=== PATIENT | female | born 1965 | race Caucasian/White ===

== ENCOUNTER 2017-07-25 13:04 | Inpatient (IN) ==
[2017-07-25] MEDS ORDERED: 0.9 % Sodium Chloride 1,000 ML IVC ONE (13:21)
[2017-07-25] MEDS ORDERED: *HR* HYDROmorphone (PF) 1 MG/ML SYRINGE IVP ONE (13:26)
[2017-07-25 13:33] LABS: Bilirubin,Urine Negative (Negative); Blood,Urine Negative (Negative); Clarity,Urine Cloudy (Clear); Color,Urine Yellow (Yellow); Glucose,Urine (UA) Normal (Normal); Ketones,Urine Negative (Negative); Leukocyte Esterase,Urine Large (Negative); Nitrite,Urine Negative (Negative); Protein,Urine Negative (Neg-Trace); Specific Gravity,Urine 1.012 (1.010-1.025); Urobilinogen,Urine Normal (Normal)
[2017-07-25 13:37] LABS: Bacteria,Urine Few per hpf (None-Few); Hyaline Casts,Urine None Seen per lpf (None-Few); RBC,Urine 0-3 per hpf (0-3); Squamous Epithelial Cell,Urine Many per lpf (None-Few); WBC,Urine 30-50 per hpf (0-3)
[2017-07-25 13:43] LABS: Basophils # 0.1 K/mcL (0.0-0.2); Basophils % 1.2 %; Eosinophils # 0.2 K/mcL (0.0-0.6); Eosinophils % 2.7 %; Immature Granulocytes % 0.2 % (0-4); Lymphocytes # 2.1 K/mcL (0.6-4.6); Mean Corpuscular HGB Conc 33.3 g/dL (31.6-35.5); Mean Corpuscular Hemoglobin 28.8 pg (28.0-33.3); Mean Corpuscular Volume 86.3 fL (83.0-100.0); Mean Platelet Volume 8.8 fL (9.4-12.4); Monocytes # 0.4 K/mcL (0.0-1.3); Monocytes % 6.3 %; Neutrophils # 3.2 K/mcL (1.6-8.9); Platelet Count 323 K/mcL (140-400); Red Blood Count 4.17 M/mcL (3.82-4.97); Red Cell Distribution Width 13.2 % (11.5-14.5); Segmented Neutrophils % 53.6 %
--- NOTE | 2017-07-25 13:50 | Emergency Department Note ---
Disposition Clinical Impression: Pancreatitis Qualifiers: Chronicity: acute Pancreatitis type: unspecified pancreatitis type Acute pancreatitis complication: unspecified Qualified Code(s): K85.90 - Acute pancreatitis without necrosis or infection, unspecified Disposition: Admitted As Inpatient Condition: Good Time of Disposition: 14:10 General Adult HPI - General Chief complaint: ED Abdominal Pain Stated complaint: Pancreatitis Time Seen by Provider: 07/25/17 13:17 Source: patient Mode of arrival: ambulatory Limitations: no limitations Nursing Notes Reviewed: Yes Vital Signs Reviewed: Yes - History of Present Illness HPI Narrative: 51-year-old female presented to the emergency department with chief complaint of epigastric pain. Patient has significant past medical history of pancreatitis due to gastric bypass surgery consultation. She has had epigastric pain that radiates under her right upper quadrant. She states she has had nausea and vomiting but no chest pain or shortness of breath. She states this episode feels exactly like her previous issues with her pancreas. Patient states she has had a cholecystectomy previously in the early . Patient denies fever at home. Patient denies urinary complaints. Patient states she tried taking oral narcotics at home but was unable to keep them down due to the nausea and vomiting. Pain Scale: 6 - Related Data Home Medications Medication Instructions Recorded Confirmed Tizanidine HCl [Zanaflex] 4 mg PO BID 01/15/16 07/25/17 BuPROPion [Wellbutrin] 300 mg PO DAILY 09/02/16 07/25/17 Niacin [Niaspan] 1,000 mg PO DAILY 09/02/16 07/25/17 Nitroglycerin [Nitrostat] 0.4 mg SL PRN PRN 09/02/16 07/25/17 Ondansetron [Zofran ODT] 8 mg SL Q4HR 07/09/17 07/25/17 Loratadine [Allergy Relief] 10 mg PO DAILY 07/25/17 07/25/17 Montelukast [Singulair] 10 mg PO HS 07/25/17 07/25/17 Pantoprazole Sodium 40 mg PO DAILY 07/25/17 07/25/17 Simvastatin [Zocor] 40 mg PO HS 07/25/17 07/25/17 Temazepam [Restoril] 30 mg PO HS 07/25/17 07/25/17 Venlafaxine XR (24 HR) [Effexor XR] 37.5 mg PO DAILY 07/25/17 07/25/17 Verapamil [Isoptin] 120 mg PO DAILY 07/25/17 07/25/17 rOPINIRole [Requip] 1 mg PO HS 07/25/17 07/25/17 Allergies Allergy/AdvReac Type Severity Reaction Status Date / Time acetaminophen [From Fioricet] Allergy Hives Verified 07/25/17 13:21 butalbital [From Fioricet] Allergy Hives Verified 07/25/17 13:21 caffeine [From Fioricet] Allergy Hives Verified 07/25/17 13:21 [place] Allergy Hives Verified 07/25/17 13:21 phenytoin [From Dilantin] Allergy Hives Verified 07/25/17 13:21 methocarbamol [From Robaxin] AdvReac Vomiting Verified 07/25/17 13:22 All systems ED: reviewed and negative except as stated. Constitutional: Denies: fever, chills Eyes: Reports: as per HPI ENT ED: Reports: as per HPI Cardiovascular: Denies: chest pain, palpitations Respiratory: Denies: cough, dyspnea, wheezes Gastrointestinal: Reports: abdominal pain, nausea, vomiting Genitourinary: Denies: urgency, dysuria, frequency Musculoskeletal: Reports: as per HPI Integumentary: Reports: as per HPI Neurological: Denies: headache, weakness, numbness, paresthesias Psychiatric: Reports: as per HPI Endocrine: Reports: as per HPI Hematological/Lymphatic: Reports: as per HPI Allergic/Immunologic: Reports: as per HPI Past Medical History - Past Medical History Attestation: Yes The following information was validated with the patient. Medical history: Reports: asthma, COPD, coronary artery disease, GERD, hyperlipidemia, myocardial infarction, renal disease, seizures, TIA, other Surgical history: Reports: , cholecystectomy, hysterectomy Psychiatric history: Reports: anxiety, depression - Social History Smoking Status: Former smoker Smokeless Tobacco Status: No Alcohol use: Reports: none, recent Drug use: Reports: none Physical Exam - General Limitations: no limitations General appearance: alert, in no apparent distress - Head Head exam: atraumatic, normocephalic, normal inspection - Eye Eye exam: Present: normal appearance. Absent: scleral icterus, conjunctival injection - ENT ENT exam: normal exam, mucous membranes moist - Chest Chest inspection: Present: normal inspection, symmetric chest wall rise. Absent : tenderness, rash - Respiratory Respiratory exam: Present: normal lung sounds bilaterally. Absent: respiratory distress, wheezes - Cardiovascular Cardiovascular exam: Present: regular rate, normal rhythm, normal heart sounds - Abdominal Exam Abdominal exam: Present: soft, tenderness, guarding, normal bowel sounds. Absent: distention, rebound, rigidity, organomegaly, Carrera's sign, Rovsing's sign, tenderness at McBurney's Point Abdominal tenderness: Present: epigastrium, moderate - Extremities Exam Extremities exam: Present: normal inspection, full ROM - Neurological Exam Neurological exam: Present: alert, oriented X3 - Psychiatric Psychiatric exam: Present: normal affect, normal mood - Skin Skin exam: Present: warm, intact Course Course Narrative: 51-year-old female presenting with epigastric pain. Patient has a history of chronic pancreatitis. We will help control her pain here and resuscitate her with normal saline 1 L bolus. We also obtained basic lab work including CBC, CMP, lipase. Disposition pending results at this time. Patient's lower and oriented 3 and with stable vital signs this time. - Reevaluation(s) Reevaluation #1: Patient's lipase is elevated at 320. I spoke with the hospitalist on-call Dr. Hanley. He agrees to accept the patient at this time. Patient's alert and oriented 3 in the room and agrees with this plan. Vital signs are stable at this time. Patient states her pain is under control this time. Time: 14:10 Vital Signs Temperature 98.0 F 07/25/17 13:06 Pulse Rate 84 07/25/17 13:06 Respiratory Rate 18 07/25/17 13:06 Blood Pressure 120/86 07/25/17 13:06 O2 Sat by Pulse Oximetry 96 07/25/17 13:06 Temperature 98.4 F 07/25/17 23:29 Pulse Rate 68 07/25/17 23:29 Respiratory Rate 16 07/25/17 23:29 Blood Pressure 100/64 07/25/17 23:29 O2 Sat by Pulse Oximetry 96 07/25/17 23:29 Oxygen Delivery Oxygen Delivery Room Air Medical Decision Making - Lab Data Result diagrams: 07/25/17 13:36 07/25/17 13:36 Lab Results 07/25/17 07/25/17 07/25/17 Range/Units 13:15 13:36 13:36 WBC 5.9 (4.3-11.1) K/mcL RBC 4.17 (3.82-4.97) M/mcL Hgb 12.0 (11.5-15.4) g/dL Hct 36.0 (35.3-44.9) % MCV 86.3 (83.0-100.0) fL MCH 28.8 (28.0-33.3) pg MCHC 33.3 (31.6-35.5) g/dL RDW 13.2 (11.5-14.5) % Plt Count 323 (140-400) K/mcL MPV 8.8 L (9.4-12.4) fL Immature Gran % 0.2 (0-4) % Seg Neutrophils % 53.6 % Lymphocytes % 36.0 % Monocytes % 6.3 % Eosinophils % 2.7 % Basophils % 1.2 % Neutrophils # 3.2 (1.6-8.9) K/mcL Lymphocytes # 2.1 (0.6-4.6) K/mcL Monocytes # 0.4 (0.0-1.3) K/mcL Eosinophils # 0.2 (0.0-0.6) K/mcL Basophils # 0.1 (0.0-0.2) K/mcL Sodium 140 (136-145) mEq/L Potassium 3.8 (3.5-4.5) mEq/L Chloride 101 (98-109) mEq/L Carbon Dioxide 28 (19-29) mEq/L BUN 10 (7-20) mg/dL Creatinine 0.97 (0.57-1.11) mg/dL Est GFR ( Amer) > 60 (> 60) Est GFR (Non-Af Amer) > 60 (> 60) BUN/Creatinine Ratio 10 (6-26) Glucose 88 (70-99) mg/dL Calculated Osmolality 288 (280-300) Calcium 9.3 (8.6-10.8) mg/dL Total Bilirubin 0.4 (0.2-1.2) mg/dL AST 33 (5-34) Units/L ALT 42 (0-55) Units/L Alkaline Phosphatase 102 (38-126) Units/L Serum Total Protein 7.7 (6.0-8.3) g/dL Albumin 4.0 (3.5-5.0) g/dL Globulin 3.7 H (2.4-3.5) g/dL Albumin/Globulin Ratio 1.1 (1.1-2.2) Lipase 320 H (8-78) Units/L Urine Color Yellow (Yellow) Urine Clarity Cloudy A (Clear) Urine pH 6.0 (5.0-8.0) pH Units Ur Specific [place] 1.012 (1.010-1.025) Urine Protein Negative (Neg-Trace) mg/dL Urine Glucose (UA) Normal (Normal) mg/dL Urine Ketones Negative (Negative) mg/dL Urine Blood Negative (Negative) Urine Nitrite Negative (Negative) Urine Bilirubin Negative (Negative) Urine Urobilinogen Normal (Normal) mg/dL Ur Leukocyte Esterase Large H (Negative) Urine Microscopic RBC 0-3 (0-3) per hpf Urine Microscopic WBC 30-50 H (0-3) per hpf Ur Squamous Epith Cells Many H (None-Few) per lpf Urine Bacteria Few (None-Few) per hpf Hyaline Casts None Seen (None-Few) per lpf Ur Culture Indicated? YES A (NO) Attestation Statement - Attestation Attestation: I, Jean-Pierre Whitlock, examined this patient and my medical decision-making was reviewed with the [employer]/PA/Advanced Practice Nurse/Resident Physician. I agree with the documented findings, disposition and treatment plan as described except to the extent set forth below. 51-year-old female presents emergency Department with concerns of epigastric abdominal pain similar to her previous pancreatitis. Patient states she has a history of chronic pancreatitis secondary to gastric bypass surgery. Patient states she has been unable to eat or drink without becoming nauseated or having significant pain. Patient has an elevated lipase on laboratory evaluation today. Patient given IV pain medications and IV fluids emergency department is comfortable with the plan for admission of the hospital.
[2017-07-25 13:57] LABS: Alanine Aminotransferase 42 Units/L (0-55); Albumin/Globulin Ratio 1.1 (1.1-2.2); Alkaline Phosphatase 102 Units/L (38-126); Aspartate Amino Transferase 33 Units/L (5-34); BUN/Creatinine Ratio 10 (6-26); Bilirubin,Total 0.4 mg/dL (0.2-1.2); Blood Urea Nitrogen 10 mg/dL (7-20); Calcium 9.3 mg/dL (8.6-10.8); Carbon Dioxide 28 mEq/L (19-29); Chloride 101 mEq/L (98-109); Globulin 3.7 g/dL (2.4-3.5); Glucose 88 mg/dL (70-99); Lipase 320 Units/L (8-78); Osmolality,Calculated 288 (280-300); Potassium 3.8 mEq/L (3.5-4.5); Sodium 140 mEq/L (136-145); Total Protein 7.7 g/dL (6.0-8.3); eGFR For African Americans > 60 (> 60); eGFR For Non-African Americans > 60 (> 60)
--- NOTE | 2017-07-25 15:15 | Event Note ---
Date of Encounter: 07/25/17 Time of Encounter: 15:14 Patient seen and examined with nurse practitioner. Acute pancreatitis. Keep NPO hydrate pain control. She has prior cholecystectomy, no concern for choledocholithiasis. she does not drink alcohol.
[2017-07-25] MEDS ORDERED: Acetaminophen 325 MG TABLET PO PRN (16:16)
[2017-07-25] MEDS ORDERED: Naloxone 0.4 MG/ML INJ IVP PRN (16:16)
[2017-07-25] MEDS: Ondansetron 4 MG/2 ML VIAL IVP PRN (17:29)
[2017-07-25] MEDS: *HR* HYDROmorphone (PF) 1 MG/ML SYRINGE IVP PRN ×2 (17:29→22:08)
[2017-07-25] MEDS: 0.9 % Sodium Chloride 1,000 ML IVC SCH (17:30)
[2017-07-25] MEDS: Pantoprazole 40 MG VIAL IVP SCH (17:30)
--- NOTE | 2017-07-25 17:49 | Internal Med History&Physical ---
Date of Encounter: 07/25/17 Time of Encounter: 15:00 Assessment and Plan (1) Pancreatitis Current visit: Yes Status: Acute Acute pancreatitis that began on Friday with continued and worsening abdominal pain, nausea, and vomiting. Patient reports previous history of same sx 2-3 weeks ago. 0.9 NS @ 100 mL/HR. NPO except for medications. Stair-step pain medications for pain management. Pt. receiving IVPB abx for current UTI. Monitor pt. closely for signs of increasing abdominal pain/swelling/N/V. Patient at high risk for further morbidity due to recurrent pancreatitis and infection from UTI. Inpatient. Qualifiers: Chronicity: acute Pancreatitis type: unspecified pancreatitis type Acute pancreatitis complication: unspecified Qualified Code(s): K85.90 - Acute pancreatitis without necrosis or infection, unspecified (2) UTI (urinary tract infection) Current visit: Yes Status: Acute Pt presents with initial UA indicative for culture. Patient's WBC currently 5.9 and does not meet sepsis criteria at this time. IVPB ceftriaxone 1000 mg daily ordered for infection coverage. Monitor pt. and f/u labs for signs of increasing infection. Monitor I&O and daily weight. Qualifiers: Urinary tract infection type: site unspecified Hematuria presence: without hematuria Qualified Code(s): N39.0 - Urinary tract infection, site not specified (3) COPD (chronic obstructive pulmonary disease) Current visit: Yes Status: Chronic Hx of chronic COPD. Stable. Patient reports being a former smoker quitting 20 years ago. Pt. denies SOB, dyspnea, cough, or home O2 use. Qualifiers: COPD type: emphysema Qualified Code(s): J43.9 - Emphysema, unspecified (4) CAD (coronary artery disease) Current visit: Yes Status: Chronic Hx of chronic CAD. Stable. Continue patient's aspirin therapy and Zocor. Continuous cardiac telemetry. Qualifiers: Coronary Disease-Associated Artery/Lesion type: [place] artery [place] vs. transplanted heart: [place] heart Associated angina: angina presence unspecified Qualified Code(s): I25.10 - Atherosclerotic heart disease of [place] coronary artery without angina pectoris (5) GERD (gastroesophageal reflux disease) Current visit: Yes Status: Chronic Hx of chronic GERD. IVP Zofran every 6 when necessary for nausea. IVP Protonix 40 mg daily. Qualifiers: Esophagitis presence: esophagitis presence not specified Qualified Code(s) : K21.9 - Gastro-esophageal reflux disease without esophagitis (6) HLD (hyperlipidemia) Current visit: Yes Status: Chronic Hx of chronic HLD. Patient's lipid panel drawn 2 weeks ago by PCP. Continue Zocor. Qualifiers: Hyperlipidemia type: pure hypercholesterolemia Qualified Code(s): E78.00 - Pure hypercholesterolemia, unspecified; E78.0 - Pure hypercholesterolemia (7) DVT prophylaxis Current visit: Yes Status: Acute Lovenox 40 mg SQ 0600 daily for DVT prophylaxis. Internal Medicine - H&P: HPI Chief complaint: Abdominal pain Admitted From: Emergency Dept Plans for Post Hospital Care: Home History of present illness: Ms. Astudillo is a 51 year old female with medical history of asthma, COPD, CAD, GERD, HLD, previous myocardial infarction 10 years ago without stent placement, chronic kidney disease, seizures approximately 20 years ago, and TIAs approximately 20 years ago presents from the ED with chief complaint of abdominal pain since Friday with nausea and vomiting. Reports similar sx 2-3 weeks ago. Pt. reports she has had these sx before w/previous pancreatitis. States her pain is epigastric w/radiation to RUQ to back. Pt. denies recent illness, fever, chills, diarrhea, constipation, headache, changes in vision, unusual bleeding, urinary problems, weakness, numbness, tingling, cough, shortness of breath, chest pain, palpitations, dizziness, lightheadedness, pre- syncope, or syncope. Past Med Surg Social Fam HX - Past Medical History Source: patient, old records reviewed Medical history: asthma, COPD, coronary artery disease, GERD, hyperlipidemia, myocardial infarction, renal disease, seizures, TIA, other Psychiatric history: anxiety, depression - Past Surgical History Surgical History: , cholecystectomy, hysterectomy (Total) - Social History Smoking Status: Former smoker Packs per day: 1 PPD - Reports quitting 20 years ago Smokeless Tobacco Status: No Alcohol use: none, recent Drug use: none Current living situation: Home, With Family Activity Level: Independent ambulation Recent Out of Country Travel Within the Last 8 Weeks: No Exposure or Possible Exposure to Illness During Travel: No - Family History Mother Name: Fatemeh Astudillo Race: Family Member Ethnicity: Non- Living Status: Age at : 72 Cause of : Throat Cancer Hx Family Cancer: Yes (Throat) Father Race: Family Member Ethnicity: Non- Living Status: Age at : 70 Cause of : Alzheimer's disease Hx Family Cancer: Yes (Prostate) Hx Family Neurologic Disorders: Yes (Alzheimer's disease) Brother Race: Family Member Ethnicity: Non- Living Status: Still Living Hx Family Psychosocial Disorders: Yes (Bipolar disorder) Sister Race: Family Member Ethnicity: Non- Living Status: Age at : 50 Cause of : NH Hx Family Cardiac Disorders: Yes (NH) Hx Family Cancer: Yes (Breast cancer) Internal Medicine - H&P: Meds Tizanidine HCl [Zanaflex] 4 mg PO BID 01/15/16 [History] BuPROPion [Wellbutrin] 300 mg PO DAILY 09/02/16 [History] Niacin [Niaspan] 1,000 mg PO DAILY 09/02/16 [History] Nitroglycerin [Nitrostat] 0.4 mg SL PRN PRN 09/02/16 [History] Ondansetron [Zofran ODT] 8 mg SL Q4HR 07/09/17 [History] Loratadine [Allergy Relief] 10 mg PO DAILY 07/25/17 [History] Montelukast [Singulair] 10 mg PO HS 07/25/17 [History] Pantoprazole Sodium 40 mg PO DAILY 07/25/17 [History] Simvastatin [Zocor] 40 mg PO HS 07/25/17 [History] Temazepam [Restoril] 30 mg PO HS 07/25/17 [History] Venlafaxine XR (24 HR) [Effexor XR] 37.5 mg PO DAILY 07/25/17 [History] Verapamil [Isoptin] 120 mg PO DAILY 07/25/17 [History] rOPINIRole [Requip] 1 mg PO HS 07/25/17 [History] 3 Allergy/AdvReac Type Severity Reaction Status Date / Time acetaminophen [From Fioricet] Allergy Hives Verified 07/25/17 13:21 butalbital [From Fioricet] Allergy Hives Verified 07/25/17 13:21 caffeine [From Fioricet] Allergy Hives Verified 07/25/17 13:21 [place] Allergy Hives Verified 07/25/17 13:21 phenytoin [From Dilantin] Allergy Hives Verified 07/25/17 13:21 methocarbamol [From Robaxin] AdvReac Vomiting Verified 07/25/17 13:22 All Systems PM: A 10-system review of systems was performed and is negative for pertinent findings except as documented above in the HPI. - Constitutional Constitutional: no chills, no fever(s), no night sweats - EENT Eyes: no change in vision, no discharge, no pain, no photophobia Ears: no ear discharge, no ear pain, no tinnitus Nose, mouth and throat: no dysphagia, no nasal discharge, no neck pain, no sore throat - Breasts Breasts: as per HPI - Cardiovascular Cardiovascular ROS IM: no chest pain, no diaphoresis, no dyspnea, no lightheadedness, no palpitations, no syncope - Respiratory Respiratory: no cough, no dyspnea, no wheezing, no excessive phlegm production - Gastrointestinal Gastrointestinal: as per HPI, abdominal pain, nausea, vomiting - Genitourinary Genitourinary: no change in urinary stream, no dysuria, no flank pain, no hematuria Menstruation: as per HPI - Musculoskeletal Musculoskeletal ROS IM: no numbness, no tingling - Integumentary Integumentary IM: no rash, no unusual bruising - Neurological Neurological ROS: no confusion, no convulsions, no focal weakness, no numbness, no tingling, no tremor(s) - Psychiatric Psychiatric: as per HPI - Endocrine Endocrine IM: as per HPI - Hematologic/Lymphatic Hematologic/Lymphatic: no easy bruising - Allergic/Immunologic Allergic/Immunologic: as per HPI - Constitutional Vitals: Temp Pulse Resp BP Pulse Ox 98.1 F 73 16 114/77 94 07/25/17 15:36 07/25/17 15:36 07/25/17 15:36 07/25/17 15:36 07/25/17 15:36 General appearance: Present: cooperative, mild distress, A&O X 3, pleasant, obese, answers questions appropriately - Head Head exam: Present: atraumatic, normocephalic - Eye Eye exam: Present: PERRL, conjuntiva pink, sclera anicteric Pupils: Present: PERRL - ENT ENT exam: Present: normal exam, normal external ear exam - Neck Neck exam general surgery: Present: normal inspection, supple, trachea midline. Absent: lymphadenopathy - Respiratory Respiratory exam: Present: CTAB. Absent: accessory muscle use, rales, rhonchi, wheezes - Cardiovascular Cardiovascular exam: Present: RRR, +S1, +S2. Absent: diastolic murmur, gallop, rubs, systolic murmur - GI/Abdominal GI/Abdominal exam: Present: normal bowel sounds, soft, no peritoneal signs. Absent: distended, tenderness - Rectal Rectal exam: Present: deferred - Additional comments: exam deferred. - Extremities Exam Extremities exam: Present: warm, radial pulses palpable and symmetrical. Absent : calf tenderness, cyanotic, pedal edema - Back Exam Back exam: Present: normal inspection - Neurological Exam Neurological exam: Present: CN II-XII intact, oriented X3, no focal deficits. Absent: pronater drift, facial droop, speech deficit - Psychiatric Psychiatric exam: Present: normal affect, normal mood - Skin Skin exam: Present: dry, intact Internal Med - H&P Results - Labs CBC & Chem 7: 07/25/17 13:36 07/25/17 13:36
[2017-07-25] MEDS: cefTRIAXone 1,000 MG in Water for inj. (sterile) 10 ML IVP SCH (18:44)
[2017-07-25] MEDS ORDERED: Temazepam 15 MG CAPSULE PO SCH (21:00)
[2017-07-25] MEDS: rOPINIRole 1 MG TABLET PO SCH (22:07)
[2017-07-25] MEDS: tiZANidine 4 MG TABLET PO SCH (22:08)
[2017-07-25] MEDS: *HR* Promethazine 25 MG/ML VIAL IVP PRN (22:24)
[2017-07-26] MEDS: Ondansetron 4 MG/2 ML VIAL IVP PRN ×3 (02:44→22:15)
[2017-07-26] MEDS: *HR* HYDROmorphone (PF) 1 MG/ML SYRINGE IVP PRN ×5 (02:45→22:15)
[2017-07-26] MEDS: 0.9 % Sodium Chloride 1,000 ML IVC SCH ×4 (03:53→23:31)
[2017-07-26 05:30] LABS: Basophils # 0.1 K/mcL (0.0-0.2); Basophils % 1.1 %; Eosinophils # 0.3 K/mcL (0.0-0.6); Eosinophils % 4.6 %; Hematocrit 32.7 % (35.3-44.9); Hemoglobin 10.5 g/dL (11.5-15.4); Immature Granulocytes % 0.2 % (0-4); Lymphocytes # 2.2 K/mcL (0.6-4.6); Lymphocytes % 39.8 %; Mean Corpuscular HGB Conc 32.1 g/dL (31.6-35.5); Mean Corpuscular Hemoglobin 28.6 pg (28.0-33.3); Mean Corpuscular Volume 89.1 fL (83.0-100.0); Mean Platelet Volume 9.4 fL (9.4-12.4); Monocytes # 0.4 K/mcL (0.0-1.3); Monocytes % 6.2 %; Neutrophils # 2.7 K/mcL (1.6-8.9); Nucleated Red Blood Cells 0.4 /100 WBC (0); Platelet Count 275 K/mcL (140-400); Red Blood Count 3.67 M/mcL (3.82-4.97); Red Cell Distribution Width 13.5 % (11.5-14.5); Segmented Neutrophils % 48.1 %
[2017-07-26 05:41] LABS: Alanine Aminotransferase 37 Units/L (0-55); Alkaline Phosphatase 91 Units/L (38-126); Aspartate Amino Transferase 38 Units/L (5-34); BUN/Creatinine Ratio 10 (6-26); Bilirubin,Total 0.3 mg/dL (0.2-1.2); Blood Urea Nitrogen 10 mg/dL (7-20); Calcium 8.5 mg/dL (8.6-10.8); Carbon Dioxide 28 mEq/L (19-29); Chloride 105 mEq/L (98-109); Glucose 88 mg/dL (70-99); Magnesium 2.1 mg/dL (1.6-2.6); Osmolality,Calculated 290 (280-300); Potassium 3.6 mEq/L (3.5-4.5); Sodium 141 mEq/L (136-145); eGFR For African Americans > 60 (> 60); eGFR For Non-African Americans > 60 (> 60)
[2017-07-26 05:42] LABS: Albumin 3.1 g/dL (3.5-5.0); Total Protein 6.1 g/dL (6.0-8.3)
[2017-07-26] MEDS: tiZANidine 4 MG TABLET PO SCH ×2 (07:51→22:16)
[2017-07-26] MEDS: Pantoprazole 40 MG VIAL IVP SCH (07:52)
[2017-07-26] MEDS: *HR* Promethazine 25 MG/ML VIAL IVP PRN ×2 (07:59→15:54)
[2017-07-26] MEDS ORDERED: Venlafaxine XR (24 HR) 37.5 MG CAP.ER.24H PO SCH (09:00)
--- NOTE | 2017-07-26 12:17 | Internal Med Progress Note ---
Date of Encounter: 07/26/17 Time of Encounter: 12:15 - Assessment and plan (1) Abdominal pain Current Visit: Yes Status: Acute Assessment and plan: Is status post cholecystectomy, possible gastroparesis. May need gastric emptying study. For now will order Reglan, continue Protonix, will start clear liquid diet recheck lipase and check amylase Qualifiers: Abdominal location: epigastric Qualified Code(s): R10.13 - Epigastric pain (2) Gastritis Current Visit: Yes Status: Acute Assessment and plan: Protonix Qualifiers: Gastritis type: unspecified gastritis Chronicity: chronic Gastritis bleeding: without bleeding Qualified Code(s): K29.50 - Unspecified chronic gastritis without bleeding (3) GERD (gastroesophageal reflux disease) Current Visit: Yes Status: Chronic Assessment and plan: Continue Protonix, if worse we will consider gastroenterology consult for possible EGD Qualifiers: Esophagitis presence: esophagitis presence not specified Qualified Code(s) : K21.9 - Gastro-esophageal reflux disease without esophagitis - Subjective Interval history: Patient denies any nausea vomiting since admission, patient complained of left upper quadrant epigastric pain 9 out of 10 in severity and intermittent now controlled with pain medication, history of recurrent attack of nausea vomiting abdominal pain, patient stated her foot stuck in her stomach. No blood in stool no black stool - Constitutional Vitals: Temp Pulse Resp BP Pulse Ox 98.1 F 72 17 90/57 96 07/26/17 11:45 07/26/17 11:45 07/26/17 11:45 07/26/17 11:45 07/26/17 11:45 General appearance: Present: cooperative, mild distress, A&O X 3, pleasant, obese, answers questions appropriately - Head Head exam: Present: atraumatic, normocephalic - Eye Eye exam: Present: conjuntiva pink, sclera anicteric - Neck Neck exam general surgery: Present: supple, trachea midline. Absent: lymphadenopathy - Respiratory Respiratory exam: Present: CTAB. Absent: accessory muscle use, rales, rhonchi, wheezes - Cardiovascular Cardiovascular exam: Present: RRR, +S1, +S2. Absent: diastolic murmur, gallop, rubs, systolic murmur - GI/Abdominal GI/Abdominal exam: Present: normal bowel sounds, soft, tenderness (Epigastric area right upper quadrant), no peritoneal signs. Absent: distended - Extremities Exam Extremities exam: Present: warm, radial pulses palpable and symmetrical. Absent : calf tenderness, cyanotic, pedal edema Internal Medicine: Result - Labs CBC & Chem 7: 07/26/17 04:38 07/26/17 04:38 Labs: Short CBC 07/26/17 Range/Units 04:38 WBC 5.6 (4.3-11.1) K/mcL Hgb 10.5 L D (11.5-15.4) g/dL Hct 32.7 L (35.3-44.9) % Plt Count 275 (140-400) K/mcL Neutrophils # 2.7 (1.6-8.9) K/mcL BMP 07/26/17 04:38 Sodium 141 Potassium 3.6 Chloride 105 Carbon Dioxide 28 BUN 10 Creatinine 0.97 Glucose 88 Calcium 8.5 L Liver Function 07/26/17 Range/Units 04:38 Total Bilirubin 0.3 (0.2-1.2) mg/dL AST 38 H (5-34) Units/L ALT 37 (0-55) Units/L Alkaline Phosphatase 91 (38-126) Units/L Albumin 3.1 L D (3.5-5.0) g/dL Consult Discharge Plan - Plan Referrals: Niecy Albarran [Advanced Practice Nurse] -
[2017-07-26 17:01] LABS: Amylase 80 Units/L (25-125); Lipase 96 Units/L (8-78)
[2017-07-26] MEDS: Metoclopramide 10 MG/2 ML VIAL IVP SCH ×2 (18:03→23:32)
[2017-07-26] MEDS: cefTRIAXone 1,000 MG in Water for inj. (sterile) 10 ML IVP SCH (18:04)
[2017-07-26] MEDS: rOPINIRole 1 MG TABLET PO SCH (22:16)
[2017-07-27] MEDS: *HR* Promethazine 25 MG/ML VIAL IVP PRN ×3 (03:47→21:26)
[2017-07-27] MEDS: 0.9 % Sodium Chloride 1,000 ML IVC SCH ×4 (03:47→14:05)
[2017-07-27] MEDS: *HR* HYDROmorphone (PF) 1 MG/ML SYRINGE IVP PRN ×4 (03:48→16:14)
[2017-07-27] MEDS: Metoclopramide 10 MG/2 ML VIAL IVP SCH ×3 (05:55→18:08)
[2017-07-27 07:30] LABS: Basophils % 0.9 %; Eosinophils # 0.2 K/mcL (0.0-0.6); Eosinophils % 5.3 %; Hematocrit 29.1 % (35.3-44.9); Hemoglobin 9.4 g/dL (11.5-15.4); Lymphocytes # 1.4 K/mcL (0.6-4.6); Mean Corpuscular HGB Conc 32.3 g/dL (31.6-35.5); Mean Corpuscular Hemoglobin 28.8 pg (28.0-33.3); Mean Corpuscular Volume 89.3 fL (83.0-100.0); Mean Platelet Volume 9.8 fL (9.4-12.4); Monocytes # 0.2 K/mcL (0.0-1.3); Monocytes % 5.1 %; Neutrophils # 2.6 K/mcL (1.6-8.9); Platelet Count 227 K/mcL (140-400); Red Blood Count 3.26 M/mcL (3.82-4.97); Red Cell Distribution Width 13.7 % (11.5-14.5); Segmented Neutrophils % 57.7 %
[2017-07-27] MEDS: Ondansetron 4 MG/2 ML VIAL IVP PRN ×2 (07:55→16:15)
[2017-07-27] MEDS: Pantoprazole 40 MG VIAL IVP SCH (07:55)
[2017-07-27] MEDS: tiZANidine 4 MG TABLET PO SCH ×2 (07:59→21:27)
[2017-07-27 09:40] LABS: Alanine Aminotransferase 445 Units/L (0-55); Albumin 2.5 g/dL (3.5-5.0); Alkaline Phosphatase 147 Units/L (38-126); Aspartate Amino Transferase 506 Units/L (5-34); BUN/Creatinine Ratio 8 (6-26); Bilirubin,Total 0.4 mg/dL (0.2-1.2); Blood Urea Nitrogen 6 mg/dL (7-20); Calcium 7.7 mg/dL (8.6-10.8); Carbon Dioxide 22 mEq/L (19-29); Chloride 108 mEq/L (98-109); Globulin 2.5 g/dL (2.4-3.5); Glucose 182 mg/dL (70-99); Osmolality,Calculated 288 (280-300); Sodium 138 mEq/L (136-145); eGFR For African Americans > 60 (> 60); eGFR For Non-African Americans > 60 (> 60)
[2017-07-27 09:41] LABS: Phosphorous 3.7 mg/dL (2.3-4.7)
--- NOTE | 2017-07-27 17:22 | Internal Med Progress Note ---
Date of Encounter: 07/27/17 Time of Encounter: 16:00 - Assessment and plan (1) Abdominal pain Current Visit: Yes Status: Acute Qualifiers: Abdominal location: epigastric Qualified Code(s): R10.13 - Epigastric pain (2) Gastritis Current Visit: Yes Status: Acute Qualifiers: Gastritis type: unspecified gastritis Chronicity: chronic Gastritis bleeding: without bleeding Qualified Code(s): K29.50 - Unspecified chronic gastritis without bleeding (3) GERD (gastroesophageal reflux disease) Current Visit: Yes Status: Chronic Qualifiers: Esophagitis presence: esophagitis presence not specified Qualified Code(s) : K21.9 - Gastro-esophageal reflux disease without esophagitis (4) Elevated lipase Current Visit: Yes Status: Acute (5) Hypokalemia due to inadequate potassium intake Current Visit: Yes Status: Acute - Time Spent With Patient Patient had a revision of his liver enzyme compared to admission rule out any stone discussed with log cut off sawyer recommended MRCP check liver function tests next morning, checked hepatitis profile. Check BNP and magnesium and phosphorus check CBC, will keep patient nothing by mouth after midnight, possible Duodinnitus or gastritis or gastric ulcer. May need EGD with her history of gastric bypass surgery if EGD is negative may consider gastric emptying study continue Reglan for now 25 - 35 minutes - Subjective Interval history: Patient continued to have nausea and pain with liquid diet, no fever or chills no vomiting. She denies any fever or chills. Had elevation of her liver enzymes today - Constitutional Vitals: Temp Pulse Resp BP Pulse Ox 98.5 F 77 16 113/79 97 07/27/17 15:21 07/27/17 15:21 07/27/17 15:21 07/27/17 15:21 07/27/17 15:21 General appearance: Present: cooperative, mild distress, A&O X 3, pleasant, obese, answers questions appropriately - Neck Neck exam general surgery: Present: supple, trachea midline. Absent: lymphadenopathy - Respiratory Respiratory exam: Present: CTAB. Absent: accessory muscle use, rales, rhonchi, wheezes - Cardiovascular Cardiovascular exam: Present: RRR, +S1, +S2. Absent: diastolic murmur, gallop, rubs, systolic murmur - GI/Abdominal GI/Abdominal exam: Present: normal bowel sounds, soft, tenderness (Mild diffuse abdominal tenderness more in the right upper quadrant and epigastric area), no peritoneal signs. Absent: distended - Extremities Exam Extremities exam: Present: warm. Absent: calf tenderness, cyanotic, pedal edema Internal Medicine: Result - Labs CBC & Chem 7: 07/27/17 06:36 07/27/17 08:58 Labs: Short CBC 07/27/17 Range/Units 06:36 WBC 4.5 (4.3-11.1) K/mcL Hgb 9.4 L (11.5-15.4) g/dL Hct 29.1 L (35.3-44.9) % Plt Count 227 (140-400) K/mcL Neutrophils # 2.6 (1.6-8.9) K/mcL BMP 07/27/17 08:58 Sodium 138 Potassium 3.0 L Chloride 108 Carbon Dioxide 22 BUN 6 L Creatinine 0.78 Glucose 182 H Calcium 7.7 L Liver Function 07/27/17 Range/Units 08:58 Total Bilirubin 0.4 (0.2-1.2) mg/dL AST 506 H (5-34) Units/L ALT 445 H (0-55) Units/L Alkaline Phosphatase 147 H (38-126) Units/L Albumin 2.5 L (3.5-5.0) g/dL Consult Discharge Plan - Plan Referrals: Nieyc Albarran [Advanced Practice Nurse] -
[2017-07-27] MEDS: cefTRIAXone 1,000 MG in Water for inj. (sterile) 10 ML IVP SCH (18:08)
[2017-07-27 18:09] LABS: Hematocrit 33.9 % (35.3-44.9); Hemoglobin 10.7 g/dL (11.5-15.4)
[2017-07-27] MEDS: rOPINIRole 1 MG TABLET PO SCH (21:26)
[2017-07-27] MEDS: *HR* HYDROcodone/Acet 5/325 mg TABLET PO PRN (21:27)
[2017-07-28] MEDS: 0.9 % Sodium Chloride 1,000 ML IVC SCH ×2 (01:28→12:04)
[2017-07-28] MEDS: Metoclopramide 10 MG/2 ML VIAL IVP SCH ×4 (01:29→18:18)
[2017-07-28] MEDS: *HR* HYDROcodone/Acet 5/325 mg TABLET PO PRN ×4 (01:29→16:31)
[2017-07-28 04:56] LABS: Basophils % 0.5 %; Eosinophils # 0.3 K/mcL (0.0-0.6); Eosinophils % 5.2 %; Hematocrit 29.7 % (35.3-44.9); Hemoglobin 9.5 g/dL (11.5-15.4); Immature Granulocytes % 0.2 % (0-4); Lymphocytes # 1.8 K/mcL (0.6-4.6); Lymphocytes % 31.3 %; Mean Corpuscular Hemoglobin 28.4 pg (28.0-33.3); Mean Corpuscular Volume 88.9 fL (83.0-100.0); Mean Platelet Volume 9.3 fL (9.4-12.4); Monocytes # 0.3 K/mcL (0.0-1.3); Neutrophils # 3.3 K/mcL (1.6-8.9); Platelet Count 205 K/mcL (140-400); Red Blood Count 3.34 M/mcL (3.82-4.97); Red Cell Distribution Width 13.8 % (11.5-14.5); Segmented Neutrophils % 57.8 %
[2017-07-28 05:09] LABS: Alanine Aminotransferase 304 Units/L (0-55); Albumin 2.8 g/dL (3.5-5.0); Albumin/Globulin Ratio 1.1 (1.1-2.2); Alkaline Phosphatase 137 Units/L (38-126); Aspartate Amino Transferase 201 Units/L (5-34); Bilirubin,Total 0.2 mg/dL (0.2-1.2); Carbon Dioxide 24 mEq/L (19-29); Chloride 112 mEq/L (98-109); Globulin 2.6 g/dL (2.4-3.5); Glucose 92 mg/dL (70-99); Magnesium 1.7 mg/dL (1.6-2.6); Osmolality,Calculated 289 (280-300); Phosphorous 3.2 mg/dL (2.3-4.7); Potassium 3.2 mEq/L (3.5-4.5); Sodium 141 mEq/L (136-145); Total Protein 5.4 g/dL (6.0-8.3); eGFR For African Americans > 60 (> 60); eGFR For Non-African Americans > 60 (> 60)
[2017-07-28 05:43] LABS: BUN/Creatinine Ratio 6 (6-26); Blood Urea Nitrogen 4 mg/dL (7-20)
[2017-07-28 09:03] LABS: Hepatitis A Antibody IgM Nonreactive (Nonreactive); Hepatitis B Core IgM Nonreactive (Nonreactive); Hepatitis B Surface Antigen Nonreactive (Nonreactive); Hepatitis C Virus Antibody Nonreactive (Nonreactive)
[2017-07-28] MEDS: tiZANidine 4 MG TABLET PO SCH (09:03)
[2017-07-28] MEDS: Pantoprazole 40 MG VIAL IVP SCH (09:03)
--- NOTE | 2017-07-28 11:58 | Gastroenterology Consult Note ---
<Juliana Langford - Last Filed: 07/28/17 11:47> Date of Encounter: 07/28/17 Time of Encounter: 10:15 - Assessment and plan (1) Pancreatitis Current Visit: Yes Status: Acute Assessment and plan: Pt has been treated with antibiotics and IVF and is feeling better. She has recurrent symptoms and increase in ALT and AST on 07/27/17 (normal on admission) will order MRCP to rule out choledocholithiasis. She had cholecystectomy 20+ years ago. Qualifiers: Chronicity: acute Pancreatitis type: unspecified pancreatitis type Acute pancreatitis complication: unspecified Qualified Code(s): K85.90 - Acute pancreatitis without necrosis or infection, unspecified (2) Abdominal pain Current Visit: Yes Status: Acute Assessment and plan: MRCP scheduled. EGD 2 months ago and colonoscopy 2-3 years ago at outside facility will send for records. Qualifiers: Abdominal location: epigastric Qualified Code(s): R10.13 - Epigastric pain (3) Abnormal LFTs Current Visit: Yes Status: Acute Assessment and plan: MRCP scheduled for today to rule out choledocholithiasis. - Time Spent With Patient Total time spent is greater than 50% in coordination of care (as documented) at patient's floor/unit and/or counseling patient: GI History of Present Illness - Data of Consult Patient: new to practice Consult date: 07/28/17 Requesting Physician: Althea Kauffman MD - Consult Narrative Reason for consult: pancreatitis History of present illness: Ms. Astudillo is a 51 year old female with medical history of asthma, COPD, CAD, GERD, HLD, previous myocardial infarction 10 years ago without stent placement, chronic kidney disease, seizures approximately 20 years ago, and TIAs approximately 20 years ago who presented with abdominal pain, nausea and vomiting. She has a history of gastric bypass in 2015. She reports intermittent and recurring abdominal pain and vomiting since then. She has been diagnosed with acute pancreatitis in the past. She had similiar sx 2-3 weeks ago. Pt. reports she has had these sx before w/previous pancreatitis. She reports the pain is epigastric and radiates to her RUQ and back. She denies any hematemesis , melena, or bloody stools. She denies recent illness, fever, or chills. She denies diarrhea or constipation. Labs reveal a WBC 5.6, Hgb 9.5, K 3.2, CA 8, AST 201, ALT 304, (was normal on admission) Alb 2.8, AMY80, Lipase was [address] on [address] abd/pelvis 07/08 showed Large volume of liquid stool throughout the colon consistent with the provided history of diarrhea. No other evidence for acute process. Seen by Dr Currie 2012 for fatty liver. Colonoscopy: 2-3 years ago at [facility] with polyps removed was recommended repeat in 1 year but did not follow up EGD: 2 months ago [facility] NSAIDS/ASA: denies Anticoagulants: was on plavix until 2-3 months ago Past Med Surg Social Fam HX - Past Medical History Medical history: asthma, COPD, coronary artery disease, GERD, hyperlipidemia, myocardial infarction, renal disease, seizures, TIA, other Psychiatric history: anxiety, depression - Past Surgical History Surgical History: , cholecystectomy, hysterectomy - Social History Smoking Status: Former smoker Packs per day: 1 PPD - Reports quitting 20 years ago Smokeless Tobacco Status: No Alcohol use: none, recent Drug use: none - Family History Mother Name: Fatemeh Astudillo Race: Family Member Ethnicity: Non- Living Status: Age at : 72 Cause of : Throat Cancer Hx Family Cardiac Disorders: No Hx Family Respiratory Disorders: No Hx Family Cancer: Yes (Throat) Hx Family GI Disorders: No Hx Family Genitourinary Disorders: No Hx Family Endocrine Disorder: No Hx Family Musculoskeletal Disorders: No Hx Family Neuromuscular Disorders: No Hx Family Neurologic Disorders: No Hx Family HEENT Disorders: No Hx Family Autoimmune Disorders: No Hx Family Reproductive Disorders: No Hx Family Psychosocial Disorders: No Hx Family Medical Disorders: No Father Race: Family Member Ethnicity: Non- Living Status: Age at : 70 Cause of : Alzheimer's disease Hx Family Cancer: Yes (Prostate) Hx Family Neurologic Disorders: Yes (Alzheimer's disease) Brother Race: Family Member Ethnicity: Non- Living Status: Still Living Hx Family Psychosocial Disorders: Yes (Bipolar disorder) Sister Race: Family Member Ethnicity: Non- Living Status: Age at : 50 Cause of : [place] Hx Family Cardiac Disorders: Yes ([place]) Hx Family Cancer: Yes (Breast cancer) Review of Systems: GI: as per [facility]: denies fever, has some chills EYES: denies yellow discoloration ENT: denies pain with swallowing or difficulty swallowing CARDIO: denies chest pain, palpitations RESP: No Shortness of breath with exertion : denies change in color of urine NEURO: denies any weakness HEME: Denies any bruising MS: denies joint pain, joint swelling or back pain. DERM: denies rash or itching PSYCH: history of anxiety or depression - Constitutional Vitals: Temp Pulse Resp BP Pulse Ox 98.3 F 74 18 115/78 96 07/28/17 07:31 07/28/17 07:31 07/28/17 07:31 07/28/17 07:31 07/28/17 09:14 Exam: CONSTITUTIONAL:~alert, no acute distress.~HEAD:~normocephalic.~EYES:~no jaundice.~NECK:~no obvious swelling.~HEART:~regular rate and rhythm, no murmurs. ~LUNGS:~bilateral good air entry.~ABDOMEN:~non distended, soft, tender epigastric area, no masses pulpable, no organomegaly, laproscopic abdominal incisision well healed.~RECTAL EXAM:~Deferred.~EXTREMITIES:~no clubbing, cyanosis or edema.~SKIN:~no stigmata of chronic liver disease.~NEUROLOGIC:~no obvious focal defect.~~~~ Results - Labs CBC & Chem 7: 07/28/17 04:47 07/28/17 04:47 Labs: Last Result Calcium 8.0 mg/dL (8.6-10.8) L 07/28/17 04:47 Entire Visit Hgb 9.5 g/dL (11.5-15.4) L 07/28/17 04:47 Hct 29.7 % (35.3-44.9) L 07/28/17 04:47 Total Bilirubin 0.2 mg/dL (0.2-1.2) 07/28/17 04:47 AST 201 Units/L (5-34) H 07/28/17 04:47 ALT 304 Units/L (0-55) H 07/28/17 04:47 Amylase 80 Units/L (25-125) 07/26/17 04:38 Lipase 76 Units/L (8-78) 07/27/17 08:58 Consult Discharge Plan - Plan Referrals: Niecy Albarran [Advanced Practice Nurse] - <Antoinette Currie - Last Filed: 07/28/17 18:07> Date of Encounter: 07/28/17 Time of Encounter: 17:00 - Time Spent With Patient Total time spent is greater than 50% in coordination of care (as documented) at patient's floor/unit and/or counseling patient: GI History of Present Illness - Data of Consult Requesting Physician: Althea Kauffman MD - Consult Narrative History of present illness: Ms. Astudillo is a 51 year old female - Constitutional Vitals: Temp Pulse Resp BP Pulse Ox 98.3 F 74 18 115/78 96 07/28/17 07:31 07/28/17 07:31 07/28/17 07:31 07/28/17 07:31 07/28/17 09:14 Results - Labs CBC & Chem 7: 07/28/17 04:47 07/28/17 04:47 Labs: Last Result Calcium 8.0 mg/dL (8.6-10.8) L 07/28/17 04:47 Entire Visit Hgb 9.5 g/dL (11.5-15.4) L 07/28/17 04:47 Hct 29.7 % (35.3-44.9) L 07/28/17 04:47 Total Bilirubin 0.2 mg/dL (0.2-1.2) 07/28/17 04:47 AST 201 Units/L (5-34) H 07/28/17 04:47 ALT 304 Units/L (0-55) H 07/28/17 04:47 Amylase 80 Units/L (25-125) 07/26/17 04:38 Lipase 76 Units/L (8-78) 07/27/17 08:58 - Impressions Impressions Abdomen MRI 07/28/17 09:27 IMPRESSION: Cholecystectomy. No biliary ductal dilatation or evidence for choledocholithiasis. D/ / Nabor Arias MD / Nabor Arias MD Interpreting Provider: Nabor Arias MD - Attending Attestation I examined this patient and my medical decision-making was reviewed with the Resident Physician. I agree with the documented findings, disposition and treatment plan as described except to the extent set forth below. Patient with recurrent pancreatitis along with that she also has elevated LFTs MRCP is negative. Denies drinking gallbladder is already out. Symptoms are concerning for possible sphincter of Oddi dysfunction with recurrent attack she had at least 3 attacks in the last 1 year that required hospitalization to [facility]. This will check a triglyceride and the also we will check IgG4. Patient will be sent to pancreatic center at [facility] for possible sphincter of Oddi manometry as out pt.
[2017-07-28] MEDS: *HR* Promethazine 25 MG/ML VIAL IVP PRN (12:03)
[2017-07-28] MEDS ORDERED: Potassium Chloride Elixir 20 MEQ/15 ML UDC PO SCH (15:30)
[2017-07-28] MEDS: Ondansetron 4 MG/2 ML VIAL IVP PRN (16:31)
--- NOTE | 2017-07-28 17:44 | Internal Med Progress Note ---
Date of Encounter: 07/28/17 Time of Encounter: 13:00 - Assessment and plan (1) Abdominal pain Current Visit: Yes Status: Acute Qualifiers: Abdominal location: epigastric Qualified Code(s): R10.13 - Epigastric pain (2) Gastritis Current Visit: Yes Status: Acute Qualifiers: Gastritis type: unspecified gastritis Chronicity: chronic Gastritis bleeding: without bleeding Qualified Code(s): K29.50 - Unspecified chronic gastritis without bleeding (3) GERD (gastroesophageal reflux disease) Current Visit: Yes Status: Chronic Qualifiers: Esophagitis presence: esophagitis presence not specified Qualified Code(s) : K21.9 - Gastro-esophageal reflux disease without esophagitis (4) Elevated lipase Current Visit: Yes Status: Acute (5) Hypokalemia due to inadequate potassium intake Current Visit: Yes Status: Acute (6) Elevated liver enzymes Current Visit: Yes Status: Acute - Time Spent With Patient Discussed with patient, liver function test improving, hepatitis panel is negative. MRCP no acute changes,Cholecystectomy. No biliary ductal dilatation or evidence for choledocholithiasis. Discussed with [facility] about patient condition , he will reevaluate the patient possible EGD. I called gastroenterology again for patient requested if she can be placed on full liquid diet tonight. Awaiting callback, change of fluid to D5 0.9 with 20 potassium. Potassium replacement. Close monitoring of H&H, awaiting stool for occult blood. Pancreatic enzymes trending down, SSRI in some patient can cause hepatotoxicity patient currently on Effexor and Wellbutrin. If patient condition is not better may consider discontinue medication on discharge. 25 - 35 minutes - Subjective Interval history: Patient continued to have epigastric discomfort. Patient stated that [place] helped for few hour . Had MRCP today no acute finding discussed with [facility] he will evaluate the patient. Patient is currently nothing by mouth. Patient is eager to eat - Constitutional Vitals: Temp Pulse Resp BP Pulse Ox 98.3 F 74 18 115/78 96 07/28/17 07:31 07/28/17 07:31 07/28/17 07:31 07/28/17 07:31 07/28/17 09:14 General appearance: Present: cooperative, mild distress, pleasant - Head Head exam: Present: atraumatic, normocephalic - Neck Neck exam general surgery: Present: supple, trachea midline. Absent: lymphadenopathy - Respiratory Respiratory exam: Present: CTAB. Absent: accessory muscle use, rales, rhonchi, wheezes - Cardiovascular Cardiovascular exam: Present: RRR, +S1, +S2. Absent: diastolic murmur, gallop, rubs, systolic murmur - GI/Abdominal GI/Abdominal exam: Present: normal bowel sounds, soft, tenderness (Epigastric tenderness right upper quadrant tenderness). Absent: distended - Extremities Exam Extremities exam: Present: warm. Absent: calf tenderness, cyanotic, pedal edema Internal Medicine: Result - Labs CBC & Chem 7: 07/28/17 04:47 07/28/17 04:47 Labs: Short CBC 07/27/17 07/28/17 Range/Units 17:49 04:47 WBC 5.6 (4.3-11.1) K/mcL Hgb 10.7 L 9.5 L (11.5-15.4) g/dL Hct 33.9 L 29.7 L (35.3-44.9) % Plt Count 205 (140-400) K/mcL Neutrophils # 3.3 (1.6-8.9) K/mcL BMP 07/28/17 04:47 Sodium 141 Potassium 3.2 L Chloride 112 H Carbon Dioxide 24 BUN 4 L Creatinine 0.65 Glucose 92 Calcium 8.0 L Liver Function 07/28/17 Range/Units 04:47 Total Bilirubin 0.2 (0.2-1.2) mg/dL AST 201 H (5-34) Units/L ALT 304 H (0-55) Units/L Alkaline Phosphatase 137 H (38-126) Units/L Albumin 2.8 L (3.5-5.0) g/dL - Impressions Impressions Abdomen MRI 07/28/17 09:27 IMPRESSION: Cholecystectomy. No biliary ductal dilatation or evidence for choledocholithiasis. D/ / Nabor Arias MD / Nabor Arias MD Interpreting Provider: Nabor Arias MD Consult Discharge Plan - Plan Referrals: Niecy Albarran [Advanced Practice Nurse] -
[2017-07-28] MEDS ORDERED: D5% in 0.45% NACL w KCl 20 MEQ/1,000 ML MLS IVC SCH (17:45)
[2017-07-28] MEDS ORDERED: Lactulose Oral Soln 20 GM/30 ML UDC PO ONE (17:49)
--- NOTE | 2017-07-28 18:13 | Discharge Summary ---
Date of Encounter: 07/28/17 - Discharge Diagnosis (1) Abdominal pain Status: Acute Qualifiers: Abdominal location: epigastric Qualified Code(s): R10.13 - Epigastric pain (2) Gastritis Status: Acute Qualifiers: Gastritis type: unspecified gastritis Chronicity: chronic Gastritis bleeding: without bleeding Qualified Code(s): K29.50 - Unspecified chronic gastritis without bleeding (3) GERD (gastroesophageal reflux disease) Status: Chronic Qualifiers: Esophagitis presence: esophagitis presence not specified Qualified Code(s) : K21.9 - Gastro-esophageal reflux disease without esophagitis (4) Elevated lipase Status: Acute (5) Hypokalemia due to inadequate potassium intake Status: Acute (6) Elevated liver enzymes Status: Acute - Discharge Medications Home Medications: Tizanidine HCl [Zanaflex] 4 mg PO BID 01/15/16 [History] BuPROPion [Wellbutrin] 300 mg PO DAILY 09/02/16 [History] Niacin [Niaspan] 1,000 mg PO DAILY 09/02/16 [History] Nitroglycerin [Nitrostat] 0.4 mg SL PRN PRN 09/02/16 [History] Ondansetron [Zofran ODT] 8 mg SL Q4HR 07/09/17 [History] Loratadine [Allergy Relief] 10 mg PO DAILY 07/25/17 [History] Montelukast [Singulair] 10 mg PO HS 07/25/17 [History] Pantoprazole Sodium 40 mg PO DAILY 07/25/17 [History] Simvastatin [Zocor] 40 mg PO HS 07/25/17 [History] Temazepam [Restoril] 30 mg PO HS 07/25/17 [History] Venlafaxine XR (24 HR) [Effexor XR] 37.5 mg PO DAILY 07/25/17 [History] Verapamil [Isoptin] 120 mg PO DAILY 07/25/17 [History] rOPINIRole [Requip] 1 mg PO HS 07/25/17 [History] Allergies/Adverse Reactions: 3 Allergy/AdvReac Type Severity Reaction Status Date / Time acetaminophen [From Fioricet] Allergy Hives Verified 07/25/17 13:21 butalbital [From Fioricet] Allergy Hives Verified 07/25/17 13:21 caffeine [From Fioricet] Allergy Hives Verified 07/25/17 13:21 [place] Allergy Hives Verified 07/25/17 13:21 phenytoin [From Dilantin] Allergy Hives Verified 07/25/17 13:21 methocarbamol [From Robaxin] AdvReac Vomiting Verified 07/25/17 13:22 Procedures/tests Complete & Pending: Procedures Performed prior 72 hours Category Date Time Status MR MRCP [MR abdomen wo con] [MR] Stat MRI 07/28/17 09:27 Completed Date of admission: 07/25/17 17:15 Primary care physician: Niecy Albarran, Consults: 07/27/17 17:27 Consult to Gastroenterology [CONS] Routine Consulting Provider: Gastroenterology Agata Reason for Consult: Pancreatitis Call Completed: Yes - Patient Status Disposition: Home, Self-Care Condition: Good - Discharge Instructions Instructions: Pancreatitis (DC) Follow Up With: Niecy Albarran [Advanced Practice Nurse] - Hospital course: Ms. Astudillo is a 51 year old female - Time Spent with Patient Total time spent providing and/or coordinating discharge services: - Constitutional Vitals: Temp Pulse Resp BP Pulse Ox 98.3 F 74 18 115/78 96 07/28/17 07:31 07/28/17 07:31 07/28/17 07:31 07/28/17 07:31 07/28/17 09:14 General appearance: Present: cooperative, mild distress, pleasant
[2017-07-28] MEDS: cefTRIAXone 1,000 MG in Water for inj. (sterile) 10 ML IVP SCH (18:18)
[2017-07-28 19:06] VITALS: BP 119/78
[2017-07-28] MEDS ORDERED: Magnesium Oxide 400 MG TABLET PO SCH (21:00)
[2017-07-29 09:00] LABS: Triglycerides 114 mg/dL (< 150)
== END 2017-07-28 20:40 | disposition home or self-care (01) | DRG 241 ==
LOC: EMEROO 13:04 → 3ANU 13:04
PROVIDERS: ADMIT Internal Medicine; ATTEND Internal Medicine

== ENCOUNTER 2017-09-07 15:49 | Observation (INO) ==
[2017-09-07] MEDS ORDERED: Ondansetron ODT 4 MG TAB.RAPDIS SL ONE (16:55)
[2017-09-07 17:15] LABS: Bilirubin,Urine Negative (Negative); Blood,Urine Negative (Negative); Clarity,Urine Clear (Clear); Color,Urine Yellow (Yellow); Glucose,Urine (UA) Normal (Normal); Ketones,Urine Negative (Negative); Leukocyte Esterase,Urine Trace (Negative); Nitrite,Urine Negative (Negative); PH,Urine 6.5 pH Units (5.0-8.0); Protein,Urine Negative (Neg-Trace); Specific Gravity,Urine 1.009 (1.010-1.025); Urobilinogen,Urine Normal (Normal)
[2017-09-07] MEDS ORDERED: 0.9 % Sodium Chloride 1,000 ML IVC ONE ×3 (17:17→19:25)
[2017-09-07] MEDS ORDERED: *HR* HYDROmorphone (PF) 1 MG/ML SYRINGE IVP ONE ×2 (17:17→19:25)
[2017-09-07] MEDS ORDERED: Ondansetron 4 MG/2 ML VIAL IVP PRN (17:17)
--- NOTE | 2017-09-07 17:22 | Emergency Department Note ---
Disposition Clinical Impression: Pancreatitis Qualifiers: Chronicity: chronic Pancreatitis type: other Qualified Code(s): K86.1 - Other chronic pancreatitis Disposition: Admitted As Inpatient Condition: Fair Referrals: Niecy Albarran [Primary Care Provider] - Forms: ED Satisfaction Letter, Work/School Release Time of Disposition: 19:20 Abdominal Pain HPI - General Chief Complaint: ED Abdominal Pain Stated Complaint: abd pain,nausea Time Seen by Provider: 09/07/17 16:43 Source: patient Nursing Notes Reviewed: Yes Vital Signs Reviewed: Yes - History of Present Illness HPI Narrative: Patient's 51-year-old female complains of abdominal pain 4 days ago. Patient has a history of multiple episodes of pancreatitis since her gastric bypass and surgery in 2014 at [facility]. Patient states that she has pancreatitis attacks approximately every 3 weeks. Patient has a port placed in her left breast area for her medications at home. Patient states she has been taking her Zofran every 6 hours and has not been controlling her nausea for very long. Patient states her pain is in her epigastric region where it always is 8/10 in intensity in the mix of sharp achy sensation. Patient states her pain is been constant. Patient states she has not eaten anything in 4 days. Pain Scale: 8 - Related Data Home Medications Medication Instructions Recorded Confirmed Tizanidine HCl [Zanaflex] 4 mg PO BID 01/15/16 08/20/17 Niacin [Niaspan] 1,000 mg PO DAILY 09/02/16 08/20/17 Nitroglycerin [Nitrostat] 0.4 mg SL PRN PRN 09/02/16 08/20/17 Ondansetron [Zofran ODT] 8 mg SL Q4HR 07/09/17 08/20/17 Montelukast [Singulair] 10 mg PO HS 07/25/17 08/20/17 Pantoprazole Sodium 40 mg PO DAILY 07/25/17 08/20/17 Simvastatin [Zocor] 40 mg PO HS 07/25/17 08/20/17 Temazepam [Restoril] 30 mg PO HS 07/25/17 08/20/17 Venlafaxine XR (24 HR) [Effexor Xr] 37.5 mg PO DAILY 07/25/17 08/20/17 Verapamil [Isoptin] 120 mg PO DAILY 07/25/17 08/20/17 rOPINIRole [Requip] 1 mg PO HS 07/25/17 08/20/17 BuPROPion XL (24 HR) [Wellbutrin 300 mg DAILY 08/20/17 08/20/17 Xl] Previous Rx's Medication Instructions Recorded Loratadine [Allergy Relief] 10 mg PO DAILY PRN #0 08/21/17 Allergies Allergy/AdvReac Type Severity Reaction Status Date / Time acetaminophen [From Fioricet] Allergy Hives Verified 09/07/17 16:42 butalbital [From Fioricet] Allergy Hives Verified 09/07/17 16:42 caffeine [From Fioricet] Allergy Hives Verified 09/07/17 16:42 [place] Allergy Hives Verified 09/07/17 16:42 phenytoin [From Dilantin] Allergy Hives Verified 09/07/17 16:42 methocarbamol [From Robaxin] AdvReac Vomiting Verified 09/07/17 16:42 All systems ED: reviewed and negative except as stated. Review of Systems: As Per HPI Constitutional: Denies: fever, chills Eyes: Denies: vision change ENT ED: Denies: congestion Cardiovascular: Denies: chest pain Respiratory: Denies: cough, dyspnea Gastrointestinal: Reports: abdominal pain, nausea, vomiting, diarrhea Abdominal Pain PMH - Past Medical History Medical history: Reports: asthma, COPD, coronary artery disease, GERD, hyperlipidemia, myocardial infarction, renal disease, seizures, TIA, other Female Surgical History: Reports: , cholecystectomy, hysterectomy, AD/ BSO, Tonsillectomy, other YACHT RIGGER history: Reports: no YACHT RIGGER history Psychiatric history: Reports: anxiety, depression - Social History Smoking status: Former smoker Alcohol use: Reports: none, recent Drug use: Reports: none Physical Exam Vital Signs Temperature 99.1 F 09/07/17 16:37 Pulse Rate 75 09/07/17 16:37 Respiratory Rate 15 09/07/17 16:37 Blood Pressure 133/83 09/07/17 16:37 O2 Sat by Pulse Oximetry 100 09/07/17 16:37 Temperature 99.1 F 09/07/17 16:37 Pulse Rate 71 09/07/17 17:21 Respiratory Rate 20 09/07/17 17:21 Blood Pressure 134/77 09/07/17 17:21 O2 Sat by Pulse Oximetry 100 09/07/17 17:21 Oxygen Delivery Oxygen Delivery Room Air 51-year-old female who is alert and oriented 3 and in acute distress secondary to her abdominal discomfort. Patient is nontoxic appearing. Vital signs normal with exception of low pressure which is 133/83. On reexamination pressure is 134/77. Patient is afebrile - General Limitations: no limitations General appearance: alert, in no apparent distress - Head Head exam: atraumatic, normocephalic, normal inspection - Eye Eye exam: Present: normal appearance, PERRL, EOMI - ENT ENT exam: normal exam, normal oropharynx, mucous membranes dry - Neck Neck exam: Present: normal inspection, full ROM, trachea midline - Chest Chest inspection: Present: normal inspection, symmetric chest wall rise - Respiratory Respiratory exam: Present: normal lung sounds bilaterally. Absent: respiratory distress, wheezes - Cardiovascular Cardiovascular exam: Present: regular rate, normal rhythm, normal heart sounds - Abdominal Exam Abdominal exam: Present: soft, tenderness Abdominal tenderness: Present: RUQ, LLQ, epigastrium - Extremities Exam Extremities exam: Present: normal inspection, full ROM. Absent: tenderness, pedal edema - Back Exam Back exam: Present: normal inspection, full ROM. Absent: tenderness, CVA tenderness (R), CVA tenderness (L) - Neurological Exam Neurological exam: Present: alert, oriented X3 - Psychiatric Psychiatric exam: Present: normal affect, normal mood - Skin Skin exam: Present: warm, dry, intact, normal color Course Vital Signs Temperature 99.1 F 09/07/17 16:37 Pulse Rate 75 09/07/17 16:37 Respiratory Rate 15 09/07/17 16:37 Blood Pressure 133/83 09/07/17 16:37 O2 Sat by Pulse Oximetry 100 09/07/17 16:37 Temperature 99.1 F 09/07/17 16:37 Pulse Rate 71 09/07/17 18:35 Respiratory Rate 20 09/07/17 18:35 Blood Pressure 137/81 09/07/17 18:35 O2 Sat by Pulse Oximetry 98 09/07/17 18:35 Oxygen Delivery Oxygen Delivery Room Air Abdominal Pain - MDM Narrative Medical decision making narrative: Patient's differential diagnosis includes pancreatitis, acute cholecystitis, bowel obstruction, ischemic bowel. Patient does not appear toxic enough to have an ischemic bowel by given patient's gastric bypass surgery patient could have a small bowel obstruction. Patient states her pain symptoms are exactly like previous pancreatitis attacks. Imaging and labs and ordered. Zofran and Dilaudid have been ordered to control patient's pain symptoms. We will reevaluate patient a patient does have pancreatitis and patient will require admission. She is doing better after pain management with Dilaudid and nausea control with Zofran. Labs show that she does have an elevated lipase for pancreatitis. Imaging does not show visual signs of pancreatitis. Patient has had multiple bouts that it may affect what we see on imaging currently. Patient will be admitted to the hospital for further pain control and nausea control. Patient understands and agrees with treatment and plan Dr. Mariano the hospital except the patient for admission at 1918 hrs. - Lab Data Result diagrams: 09/07/17 17:31 09/07/17 17:31 Lab Results 09/07/17 09/07/17 12 Range/Units 17:02 17:31 17:31 WBC 6.8 (4.3-11.1) K/mcL RBC 3.84 (3.82-4.97) M/mcL Hgb 10.7 L (11.5-15.4) g/dL Hct 32.3 L (35.3-44.9) % MCV 84.1 (83.0-100.0) fL MCH 27.9 L (28.0-33.3) pg MCHC 33.1 (31.6-35.5) g/dL RDW 13.5 (11.5-14.5) % Plt Count 335 (140-400) K/mcL MPV 9.1 L (9.4-12.4) fL Immature Gran % 0.1 (0-4) % Seg Neutrophils % 59.7 % Lymphocytes % 31.5 % Monocytes % 6.5 % Eosinophils % 1.5 % Basophils % 0.7 % Neutrophils # 4.1 (1.6-8.9) K/mcL Lymphocytes # 2.2 (0.6-4.6) K/mcL Monocytes # 0.4 (0.0-1.3) K/mcL Eosinophils # 0.1 (0.0-0.6) K/mcL Basophils # 0.1 (0.0-0.2) K/mcL Sodium 140 (136-145) mEq/L Potassium 3.4 L (3.5-4.5) mEq/L Chloride 103 (98-109) mEq/L Carbon Dioxide 27 (19-29) mEq/L BUN 9 (7-20) mg/dL Creatinine 0.99 (0.57-1.11) mg/dL Est GFR ( Amer) > 60 (> 60) Est GFR (Non-Af Amer) 60 (> 60) BUN/Creatinine Ratio 9 (6-26) Glucose 94 (70-99) mg/dL Calculated Osmolality 288 (280-300) Calcium 9.3 (8.6-10.8) mg/dL Total Bilirubin 0.3 (0.2-1.2) mg/dL Direct Bilirubin 0.1 (0.0-0.5) mg/dL Indirect Bilirubin 0.2 (0.0-1.2) mg/dL AST 30 (5-34) Units/L ALT 30 (0-55) Units/L Alkaline Phosphatase 81 (38-126) Units/L Serum Total Protein 7.0 (6.0-8.3) g/dL Albumin 3.9 (3.5-5.0) g/dL Globulin 3.1 (2.4-3.5) g/dL Albumin/Globulin Ratio 1.3 (1.1-2.2) Amylase 96 (25-125) Units/L Lipase 193 H (8-78) Units/L Urine Color Yellow (Yellow) Urine Clarity Clear (Clear) Urine pH 6.5 (5.0-8.0) pH Units Ur Specific [place] 1.009 L (1.010-1.025) Urine Protein Negative (Neg-Trace) mg/dL Urine Glucose (UA) Normal (Normal) mg/dL Urine Ketones Negative (Negative) mg/dL Urine Blood Negative (Negative) Urine Nitrite Negative (Negative) Urine Bilirubin Negative (Negative) Urine Urobilinogen Normal (Normal) mg/dL Ur Leukocyte Esterase Trace H (Negative) Urine Microscopic RBC 0-3 (0-3) per hpf Urine Microscopic WBC 0-3 (0-3) per hpf Ur Squamous Epith Cells Few (None-Few) per lpf Urine Bacteria None Seen (None-Few) per hpf Ur Culture Indicated? YES A (NO) Attestation Statement - Attestation Attestation: I, Emanuel Pierre DO, examined this patient [id number] and my medical decision-making was reviewed with Dr. Fan Schaefer, Resident Physician. I agree with the documented findings, disposition and treatment plan as described except to the extent set forth below. Please see my progress notes for details. 51-year-old female presents emergency room for evaluation of abdominal pain with nausea and vomiting and inability to keep down by mouth food and patient has long-standing history of pancreatitis. This started in 2014 after having gastric bypass. She currently has a port in place and takes multiple medications at home her symptoms. She has not been able to tolerate a nausea medication at home and has not been able to keep anything down by mouth. Patient denies any other trauma or injury at this time. Patient is resting comfortably in the bed. She does have tenderness in the midepigastric region. Lungs are clear heart is regular. Labs ordered and resulted showing elevated lipase. Patient does have events were lipase was back to normal. This is elevated for her at this time. CT imaging is pending. Otherwise patient will need admission for fluid hydration nausea medication and symptom control. See detailed documentation of physical exam, medical intervention, medical decision- making and disposition of the resident physician's note
[2017-09-07 17:30] LABS: Bacteria,Urine None Seen per hpf (None-Few); RBC,Urine 0-3 per hpf (0-3); Squamous Epithelial Cell,Urine Few per lpf (None-Few); WBC,Urine 0-3 per hpf (0-3)
[2017-09-07 17:46] LABS: Basophils # 0.1 K/mcL (0.0-0.2); Basophils % 0.7 %; Eosinophils # 0.1 K/mcL (0.0-0.6); Eosinophils % 1.5 %; Hematocrit 32.3 % (35.3-44.9); Hemoglobin 10.7 g/dL (11.5-15.4); Immature Granulocytes % 0.1 % (0-4); Lymphocytes # 2.2 K/mcL (0.6-4.6); Lymphocytes % 31.5 %; Mean Corpuscular HGB Conc 33.1 g/dL (31.6-35.5); Mean Corpuscular Hemoglobin 27.9 pg (28.0-33.3); Mean Corpuscular Volume 84.1 fL (83.0-100.0); Mean Platelet Volume 9.1 fL (9.4-12.4); Monocytes # 0.4 K/mcL (0.0-1.3); Monocytes % 6.5 %; Neutrophils # 4.1 K/mcL (1.6-8.9); Platelet Count 335 K/mcL (140-400); Red Blood Count 3.84 M/mcL (3.82-4.97); Red Cell Distribution Width 13.5 % (11.5-14.5); Segmented Neutrophils % 59.7 %
[2017-09-07 18:00] LABS: Alanine Aminotransferase 30 Units/L (0-55); Albumin 3.9 g/dL (3.5-5.0); Albumin/Globulin Ratio 1.3 (1.1-2.2); Alkaline Phosphatase 81 Units/L (38-126); Amylase 96 Units/L (25-125); Aspartate Amino Transferase 30 Units/L (5-34); BUN/Creatinine Ratio 9 (6-26); Bilirubin,Direct 0.1 mg/dL (0.0-0.5); Bilirubin,Indirect 0.2 mg/dL (0.0-1.2); Bilirubin,Total 0.3 mg/dL (0.2-1.2); Blood Urea Nitrogen 9 mg/dL (7-20); Calcium 9.3 mg/dL (8.6-10.8); Carbon Dioxide 27 mEq/L (19-29); Chloride 103 mEq/L (98-109); Globulin 3.1 g/dL (2.4-3.5); Glucose 94 mg/dL (70-99); Lipase 193 Units/L (8-78); Osmolality,Calculated 288 (280-300); Potassium 3.4 mEq/L (3.5-4.5); Sodium 140 mEq/L (136-145); eGFR For African Americans > 60 (> 60); eGFR For Non-African Americans 60 (> 60)
[2017-09-07] MEDS ORDERED: *HR* HYDROcodone/Acet 5/325 mg TABLET PO PRN (19:44)
[2017-09-07] MEDS ORDERED: Naloxone 0.4 MG/ML INJ IVP PRN (19:44)
[2017-09-07] MEDS ORDERED: Nitroglycerin 0.4 MG TAB.SUBL SL PRN (19:48)
--- NOTE | 2017-09-07 19:56 | Internal Med History&Physical ---
<Gilbert Richmond - Last Filed: 09/07/17 20:13> Date of Encounter: 09/07/17 Time of Encounter: 19:51 Assessment and Plan (1) Pancreatitis Current visit: Yes Status: Acute Reporting 4day history of abdominal pain, nausea, vomiting and diarrhea as well as anorexia. She reports chronic pancreatitis. CT of abdomen and pelvis shows no obstruction or thickening. Appendix is normal in appearance. She does not appear toxic and does not meet SIRS criteria. However, she does appear dehydrated. He remains hemodynamically stable. Admit as inpatient and continue treatment for chronic pancreatitis and dehydration. This does not appear to be severe pancreatitis-hold NG placement Receiving 3 L IV fluid bolus now Continue IVF 0.9% normal saline at 125 mL per hour Remain nothing by mouth except sips with meds pain management with morphine and hydrocodone continue antiemetics with zofran and phenergan Recheck lipase in the morning Protonix 40mg BID initiate soft low residue diet as pain and inflammatory markers decreased CBC, CMP in the morning Continuous tele, continuous spo2 monitoring Qualifiers: Chronicity: chronic Pancreatitis type: other Qualified Code(s): K86.1 - Other chronic pancreatitis (2) Abdominal pain Current visit: Yes Status: Acute Continues to have abdominal pain secondary to chronic pancreatitis. See plan above Qualifiers: Abdominal location: right upper quadrant Qualified Code(s): R10.11 - Right upper quadrant pain (3) Hypokalemia Current visit: Yes Status: Acute Has malabsorption s/p bypass surgery, reports she chronically is hypokalemic. Receiving 20MEQ IV potassium and EGD. Recheck potassium in the morning (4) Dehydration Current visit: Yes Status: Acute in the setting of pancreatitis and N/V/D x4 days. See plan above (5) Malabsorption syndrome Current visit: Yes Status: Chronic Qualifiers: Intestinal malabsorption type: unspecified Qualified Code(s): K90.9 - Intestinal malabsorption, unspecified (6) DVT prophylaxis Current visit: Yes Status: Acute Heparin 5000 units SC BID Internal Medicine - H&P: HPI Chief complaint: intractable N/V and abdominal pain Admitted From: Home Plans for Post Hospital Care: Home History of present illness: Ms. Astudillo is a 51 year old female with a PMH of asthma, COPD, coronary artery disease, GERD, hyperlipidemia, myocardial infarction, renal disease, seizures, and TIA. She presents to [facility] today with diarrhea and intractable nausea vomiting abdominal pain which began approximately 4 days ago. She reports that 4 days ago she ingested some cayenne while at the [employer] and that she began to have pain and vomiting that night. Additionally she has a history of multiple pancreatitis with gastric bypass surgery in 2015 at [facility]. She is reporting 3 times proximally every 3 weeks. She has a port in her left breast due to malabsorption following gastric bypass surgery. She reports that she takes antiemetics via IV every 6 hours at home but this is not controlling her nausea. Addressing her pain she is concerned because the pain is in the epigastric right upper quadrant region with radiation to back and scored 8/10 described as sharp and achy. She states that the pain is constant and due to the pain and nausea vomiting she has been admitted here 4 days. Denies any fever, chills, chest pain, shortness of breath, weight, night sweats. Admits to fatigue, weakness, nausea vomiting diarrhea, abdominal pain. Due to continued symptoms she is being admitted for further monitoring and rehydration Past Med Surg Social Fam HX - Past Medical History Medical history: asthma, COPD, coronary artery disease, GERD, hyperlipidemia, myocardial infarction, renal disease, seizures, TIA, other Psychiatric history: anxiety, depression - Past Surgical History Surgical History: , cholecystectomy, hysterectomy - Social History Smoking Status: Former smoker Smokeless Tobacco Status: No Alcohol use: none, recent Drug use: none - Family History Mother Family Member Ethnicity: Non- Living Status: Hx Family Cardiac Disorders: No Hx Family Respiratory Disorders: No Hx Family Cancer: Yes (Throat) Hx Family GI Disorders: No Hx Family Endocrine Disorder: No Hx Family Neuromuscular Disorders: No Hx Family Neurologic Disorders: No Hx Family HEENT Disorders: No Hx Family Autoimmune Disorders: No Father Family Member Ethnicity: Non- Living Status: Hx Family Cancer: Yes (Prostate) Hx Family Neurologic Disorders: Yes (Alzheimer's disease) Brother Family Member Ethnicity: Non- Living Status: Still Living Sister Family Member Ethnicity: Non- Living Status: Hx Family Cardiac Disorders: Yes (ND) Hx Family Cancer: Yes (Breast cancer) Internal Medicine - H&P: Meds Tizanidine HCl [Zanaflex] 4 mg PO BID 01/15/16 [History] Niacin [Niaspan] 1,000 mg PO DAILY 09/02/16 [History] Nitroglycerin [Nitrostat] 0.4 mg SL PRN PRN 09/02/16 [History] Ondansetron [Zofran ODT] 8 mg SL Q4HR 07/09/17 [History] Montelukast [Singulair] 10 mg PO HS 07/25/17 [History] Pantoprazole Sodium 40 mg PO DAILY 07/25/17 [History] Simvastatin [Zocor] 40 mg PO HS 07/25/17 [History] Temazepam [Restoril] 30 mg PO HS 07/25/17 [History] Venlafaxine XR (24 HR) [Effexor Xr] 37.5 mg PO DAILY 07/25/17 [History] Verapamil [Isoptin] 120 mg PO DAILY 07/25/17 [History] rOPINIRole [Requip] 1 mg PO HS 07/25/17 [History] BuPROPion XL (24 HR) [Wellbutrin Xl] 300 mg DAILY 08/20/17 [History] Loratadine [Allergy Relief] 10 mg PO DAILY PRN #0 08/21/17 [Rx] 3 Allergy/AdvReac Type Severity Reaction Status Date / Time acetaminophen [From Fioricet] Allergy Hives Verified 09/07/17 16:42 butalbital [From Fioricet] Allergy Hives Verified 09/07/17 16:42 caffeine [From Fioricet] Allergy Hives Verified 09/07/17 16:42 [place] Allergy Hives Verified 09/07/17 16:42 phenytoin [From Dilantin] Allergy Hives Verified 09/07/17 16:42 methocarbamol [From Robaxin] AdvReac Vomiting Verified 09/07/17 16:42 All Systems PM: A 10-system review of systems was performed and is negative for pertinent findings except as documented above in the HPI. - Constitutional Constitutional: anorexia, fatigue, weakness, no chills, no fever(s), no night sweats, no weight loss - EENT Eyes: change in vision - Cardiovascular Cardiovascular ROS IM: no chest pain, no diaphoresis, no dyspnea, no dyspnea on exertion, no edema, no irregular heart rhythm, no lightheadedness, no palpitations, no paroxysmal nocturnal dyspnea, no syncope - Respiratory Respiratory: no cough, no dyspnea, no hemoptysis, no dyspnea on exertion, no wheezing, no pain on inspiration, no chest congestion, no excessive phlegm production, no change in phlegm color, no pain with cough - Gastrointestinal Gastrointestinal: as per HPI, abdominal pain, diarrhea, early satiety, nausea, vomiting, no hematemesis, no hematochezia, no melena - Genitourinary Genitourinary: no change in urinary stream, no dysuria, no flank pain, no hematuria - Musculoskeletal Musculoskeletal ROS IM: no numbness, no tingling - Integumentary Integumentary IM: no rash, no unusual bruising - Neurological Neurological ROS: no confusion, no convulsions, no focal weakness, no numbness, no tingling, no tremor(s) - Hematologic/Lymphatic Hematologic/Lymphatic: no easy bruising - Constitutional Vitals: Temp Pulse Resp BP Pulse Ox 99.1 F 80 18 134/77 100 09/07/17 16:37 09/07/17 19:35 09/07/17 19:35 09/07/17 19:35 09/07/17 19:35 General appearance: Present: mild distress, A&O X 3, answers questions appropriately - Head Head exam: Present: atraumatic, normocephalic - Eye Eye exam: Present: PERRL Pupils: Present: PERRL - Neck Neck exam general surgery: Present: supple, trachea midline. Absent: lymphadenopathy - Respiratory Respiratory exam: Present: CTAB. Absent: accessory muscle use, rales, rhonchi, wheezes - Cardiovascular Cardiovascular exam: Present: RRR, +S1, +S2. Absent: diastolic murmur, gallop, rubs, systolic murmur - GI/Abdominal GI/Abdominal exam: Present: normal bowel sounds, soft, tenderness (RUQ and epigastric tenderness to palpation), no peritoneal signs. Absent: distended, firm, guarding, hepatomegaly, rebound, splenomegaly - Extremities Exam Extremities exam: Present: normal capillary refill, normal inspection, warm, radial pulses palpable and symmetrical. Absent: calf tenderness, cyanotic, pedal edema, tenderness - Neurological Exam Neurological exam: Present: CN II-XII intact, oriented X3, no focal deficits. Absent: pronater drift, facial droop, speech deficit - Skin Skin exam: Present: dry, intact Internal Med - H&P Results - Labs CBC & Chem 7: 09/07/17 17:31 12 17:31 - Diagnostic Studies CT scan - abdomen Status: image reviewed by me Additional comments: CT of abdomen and pelvis reveals no obstruction per 4 thickening. Appendix appears normal, evidence of prior gastric bypass surgery without complications <Marilyn Mariano - Last Filed: 09/07/17 20:24> Date of Encounter: 09/07/17 Internal Medicine - H&P: HPI History of present illness: Ms. Astudillo is a 51 year old female All Systems PM: A 10-system review of systems was performed and is negative for pertinent findings except as documented above in the HPI. - Constitutional Vitals: Temp Pulse Resp BP Pulse Ox 99.1 F 80 18 121/76 100 09/07/17 16:37 09/07/17 19:35 09/07/17 20:05 09/07/17 20:05 09/07/17 19:35 Internal Med - H&P Results - Labs CBC & Chem 7: 09/07/17 17:31 09/07/17 17:31 - Attending Attestation I have personally performed a face to face evaluation on this patient. I have reviewed and agree with the care plan. History and Exam by me shows:. Ms Astudillo 51 yo admitted with pancreatitis Has pancreatitis since gastric bypass surgery [address] Bocanegra as [facility]. Reported to be post-surgical complication with recurrent episodes. 2 months ago , port was placed for home IVF and IV zofran BID. Symptoms developed 4 years ago when she had some very spicy food. SInce then developed epigastric region pain, radiating agreee, 8-9/10, sharp cramps. Associated with n/v/diarrhea. ROS 14 point review of systems reviewed as best as possible given presentation. Pertinent positive or negative as per HPI or otherwise reviewed as negative General - AAO x 3 Psych - Appropriate affect/speech. No agitation Eyes - [place]. Eye lids intact. No scleral icterus Neuro - No gross peripheral or central neuro deficits with intact CN 2-12 exam Heart - Sinus. RRR. S1 and S2 present. No added HS/murmurs appreciated. No elevated JVD appreciated. Lung - Adequate air entry b/l, No crackles/wheezes appreciated GI - Epigastric tenderness. No hepatosplenomegaly/ascites. BS+ - No CVA/suprapubic tenderness or palpable bladder distension Skin - Intact. No rash/petechiae/ecchymosis. Warm extremities MSK - Joints with normal ROM. No joint swellings FINDINGS: Lower Chest: Lung bases demonstrate no active disease. Organs: The liver appears unremarkable. Status post cholecystectomy. Pancreas and spleen appear unremarkable. Adrenals, kidneys, aorta and IVC appear stable. GI/Bowel: Status post gastric bypass with no obvious complications. No bowel obstruction, perforation or thickening. Normal appendix. Pelvis: Urinary bladder appears unremarkable. Status post hysterectomy. Peritoneum/Retroperitoneum: No adenopathy or acute peritoneal process. Bones/Soft Tissues: Lumbar fusion between L4 and S1 appears to be well aligned. CT/CT abd pelvis w iv no oral IMPRESSION: No acute bowel obstruction, perforation or thickening. Normal appendix. Status post gastric bypass which appears uncomplicated. A/P Recurrent acute pancreatitis 2/2 complications of gastric bypass - IVF, bolus - IV morphine - IV zofran - follow symptoms, supportive care for now Depression HTN GERD
[2017-09-07] MEDS: Temazepam 15 MG CAPSULE PO SCH (21:14)
[2017-09-07] MEDS: rOPINIRole 1 MG TABLET PO SCH (21:14)
[2017-09-07] MEDS: 0.9 % Sodium Chloride 1,000 ML IVC SCH (21:15)
[2017-09-07] MEDS: tiZANidine 4 MG TABLET PO SCH (21:15)
[2017-09-07] MEDS: *HR* Promethazine 25 MG/ML VIAL IVP PRN (21:16)
[2017-09-07] MEDS: Pantoprazole 40 MG VIAL IVP SCH (21:22)
[2017-09-07] MEDS: *HR* HYDROmorphone (PF) 1 MG/ML SYRINGE IVP PRN (23:33)
[2017-09-08] MEDS: *HR* HYDROmorphone (PF) 1 MG/ML SYRINGE IVP PRN ×5 (03:42→20:50)
[2017-09-08] MEDS: *HR* Promethazine 25 MG/ML VIAL IVP PRN ×3 (03:42→18:51)
[2017-09-08 04:14] LABS: Basophils # 0.1 K/mcL (0.0-0.2); Basophils % 0.8 %; Eosinophils # 0.2 K/mcL (0.0-0.6); Eosinophils % 2.5 %; Hematocrit 29.3 % (35.3-44.9); Hemoglobin 9.4 g/dL (11.5-15.4); Immature Granulocytes % 0.2 % (0-4); Lymphocytes # 2.8 K/mcL (0.6-4.6); Mean Corpuscular HGB Conc 32.1 g/dL (31.6-35.5); Mean Corpuscular Hemoglobin 27.9 pg (28.0-33.3); Mean Corpuscular Volume 86.9 fL (83.0-100.0); Mean Platelet Volume 9.4 fL (9.4-12.4); Monocytes # 0.4 K/mcL (0.0-1.3); Monocytes % 6.3 %; Neutrophils # 2.9 K/mcL (1.6-8.9); Platelet Count 255 K/mcL (140-400); Red Blood Count 3.37 M/mcL (3.82-4.97); Red Cell Distribution Width 13.9 % (11.5-14.5); Segmented Neutrophils % 46.2 %
[2017-09-08 04:25] LABS: Alanine Aminotransferase 25 Units/L (0-55); Albumin/Globulin Ratio 1.3 (1.1-2.2); Alkaline Phosphatase 68 Units/L (38-126); Aspartate Amino Transferase 29 Units/L (5-34); BUN/Creatinine Ratio 8 (6-26); Bilirubin,Total 0.3 mg/dL (0.2-1.2); Blood Urea Nitrogen 7 mg/dL (7-20); Calcium 8.4 mg/dL (8.6-10.8); Carbon Dioxide 25 mEq/L (19-29); Chloride 109 mEq/L (98-109); Globulin 2.4 g/dL (2.4-3.5); Glucose 83 mg/dL (70-99); Lipase 79 Units/L (8-78); Osmolality,Calculated 289 (280-300); Potassium 3.7 mEq/L (3.5-4.5); Sodium 141 mEq/L (136-145); eGFR For African Americans > 60 (> 60); eGFR For Non-African Americans > 60 (> 60)
[2017-09-08 04:26] LABS: Albumin 3.1 g/dL (3.5-5.0); Total Protein 5.5 g/dL (6.0-8.3)
[2017-09-08] MEDS: Pantoprazole 40 MG VIAL IVP SCH ×2 (05:45→18:28)
[2017-09-08] MEDS: 0.9 % Sodium Chloride 1,000 ML IVC SCH (05:45)
[2017-09-08] MEDS: *HR* Heparin 5,000 UNIT/ML VIAL SQ SCH ×2 (05:52→18:28)
[2017-09-08] MEDS: BuPROPion XL (24 HR) 150 MG TABLET PO SCH (08:25)
[2017-09-08] MEDS: Venlafaxine XR (24 HR) 37.5 MG CAP.ER.24H PO SCH (08:25)
[2017-09-08] MEDS: Ondansetron 4 MG/2 ML VIAL IVP PRN ×2 (08:25→16:39)
[2017-09-08] MEDS: tiZANidine 4 MG TABLET PO SCH ×2 (08:26→20:49)
--- NOTE | 2017-09-08 08:54 | Internal Med Progress Note ---
Date of Encounter: 09/08/17 Time of Encounter: 08:51 - Assessment and plan (1) Hypomagnesemia Current Visit: Yes Status: Acute Assessment and plan: Secondary to GI losses. Supplement with IV magnesium sulfate and monitor closely. (2) Hypokalemia Current Visit: Yes Status: Acute Assessment and plan: secondary to GI losses; supplement with PO KCl and monitor closely; (3) Pancreatitis Current Visit: Yes Status: Acute Assessment and plan: Reports multiple episodes of acute pancreatitis since undergoing gastric bypass surgery. CT abdomen/pelvis shows no acute abnormality. Serum lipase noted to be improving. Continue supportive care with bowel rest, IV hydration, pain control with when necessary IV Dilaudid, when necessary antiemetics. Qualifiers: Chronicity: chronic Pancreatitis type: other Qualified Code(s): K86.1 - Other chronic pancreatitis (4) CKD (chronic kidney disease) Current Visit: Yes Status: Chronic Assessment and plan: Reports a history of stage III chronic kidney disease. Serum creatinine/GFR currently normal. Continue to monitor. Qualifiers: Chronic kidney disease stage: stage 3 (moderate) Qualified Code(s): N18.3 - Chronic kidney disease, stage 3 (moderate) (5) Anxiety and depression Current Visit: Yes Status: Chronic Assessment and plan: Continue home medications. (6) COPD (chronic obstructive pulmonary disease) Current Visit: Yes Status: Chronic Assessment and plan: Not in acute exacerbation. Continue when necessary bronchodilators. Qualifiers: COPD type: unspecified COPD Qualified Code(s): J44.9 - Chronic obstructive pulmonary disease, unspecified (7) CAD (coronary artery disease) Current Visit: Yes Status: Chronic Qualifiers: Coronary Disease-Associated Artery/Lesion type: [place] artery [place] vs. transplanted heart: [place] heart Associated angina: without angina Qualified Code(s): I25.10 - Atherosclerotic heart disease of [place] coronary artery without angina pectoris (8) GERD (gastroesophageal reflux disease) Current Visit: Yes Status: Chronic Assessment and plan: Continue PPI. Qualifiers: Esophagitis presence: esophagitis presence not specified Qualified Code(s) : K21.9 - Gastro-esophageal reflux disease without esophagitis (9) HLD (hyperlipidemia) Current Visit: Yes Status: Chronic Qualifiers: Hyperlipidemia type: unspecified Qualified Code(s): E78.5 - Hyperlipidemia , unspecified - Subjective Interval history: Feels better but still symptomatic with abdominal pain and nausea; improved diarrhea, last BM yesterday; no fever/chills; has been having intermittent episodes of pancreatitis since her gastric bypass surgery a few years ago; - Constitutional Vitals: Temp Pulse Resp BP Pulse Ox 98.0 F 63 14 100/63 97 09/08/17 06:53 09/08/17 06:53 09/08/17 06:53 09/08/17 06:53 09/08/17 06:53 General appearance: Present: mild distress, A&O X 3, answers questions appropriately - Respiratory Respiratory exam: Present: CTAB. Absent: accessory muscle use, rales, rhonchi, wheezes - Cardiovascular Cardiovascular exam: Present: RRR, +S1, +S2. Absent: diastolic murmur, gallop, rubs, systolic murmur - GI/Abdominal GI/Abdominal exam: Present: normal bowel sounds, soft (minimal tenderness in epigastrium and RUQ), no peritoneal signs. Absent: distended, tenderness - Extremities Exam Extremities exam: Present: full ROM, warm, radial pulses palpable and symmetrical. Absent: calf tenderness, cyanotic, pedal edema - Neurological Exam Neurological exam: Present: CN II-XII intact, oriented X3, no focal deficits. Absent: pronater drift, facial droop, speech deficit Internal Medicine: Result - Labs CBC & Chem 7: 09/08/17 03:43 09/08/17 03:43 Labs: Short CBC 09/08/17 Range/Units 03:43 WBC 6.4 (4.3-11.1) K/mcL Hgb 9.4 L (11.5-15.4) g/dL Hct 29.3 L (35.3-44.9) % Plt Count 255 (140-400) K/mcL Neutrophils # 2.9 (1.6-8.9) K/mcL BMP 09/08/17 03:43 Sodium 141 Potassium 3.7 Chloride 109 Carbon Dioxide 25 BUN 7 Creatinine 0.85 Glucose 83 Calcium 8.4 L Liver Function 09/08/17 Range/Units 03:43 Total Bilirubin 0.3 (0.2-1.2) mg/dL AST 29 (5-34) Units/L ALT 25 (0-55) Units/L Alkaline Phosphatase 68 (38-126) Units/L Albumin 3.1 L D (3.5-5.0) g/dL Consult Discharge Plan - Plan Referrals: Niecy Albarran [Primary Care Provider] -
[2017-09-08] MEDS: Temazepam 15 MG CAPSULE PO SCH (20:49)
[2017-09-08] MEDS: rOPINIRole 1 MG TABLET PO SCH (20:50)
[2017-09-09] MEDS: *HR* HYDROmorphone (PF) 1 MG/ML SYRINGE IVP PRN ×3 (01:10→09:39)
[2017-09-09] MEDS: *HR* Promethazine 25 MG/ML VIAL IVP PRN ×2 (01:10→08:17)
[2017-09-09] MEDS: Ondansetron 4 MG/2 ML VIAL IVP PRN (04:02)
[2017-09-09] MEDS: *HR* Heparin 5,000 UNIT/ML VIAL SQ SCH (05:14)
[2017-09-09] MEDS: Pantoprazole 40 MG VIAL IVP SCH (05:14)
[2017-09-09] MEDS: Venlafaxine XR (24 HR) 37.5 MG CAP.ER.24H PO SCH (08:17)
[2017-09-09] MEDS: BuPROPion XL (24 HR) 150 MG TABLET PO SCH (08:17)
[2017-09-09] MEDS: tiZANidine 4 MG TABLET PO SCH (08:18)
[2017-09-09] MEDS ORDERED: Verapamil ER (24 HR) 120 MG TABLET.ER PO SCH (09:00)
[2017-09-09] MEDS ORDERED: ARIPiprazole 10 MG TABLET PO SCH (09:00)
--- NOTE | 2017-09-09 09:39 | Discharge Summary ---
Date of Encounter: 09/09/17 Time of Encounter: 09:40 - Discharge Diagnosis (1) Pancreatitis Priority: Primary Status: Acute Qualifiers: Chronicity: chronic Pancreatitis type: other Qualified Code(s): K86.1 - Other chronic pancreatitis (2) Hypokalemia Priority: Primary Status: Acute (3) Abdominal pain Priority: Primary Status: Acute Qualifiers: Abdominal location: right upper quadrant Qualified Code(s): R10.11 - Right upper quadrant pain (4) Nausea and vomiting Priority: Primary Status: Acute Qualifiers: Vomiting type: unspecified Vomiting Intractability: intractable Qualified Code(s): R11.2 - Nausea with vomiting, unspecified (5) Malabsorption syndrome Priority: Secondary Status: Chronic Qualifiers: Intestinal malabsorption type: unspecified Qualified Code(s): K90.9 - Intestinal malabsorption, unspecified (6) CKD (chronic kidney disease) Priority: Secondary Status: Chronic Qualifiers: Chronic kidney disease stage: stage 3 (moderate) Qualified Code(s): N18.3 - Chronic kidney disease, stage 3 (moderate) - Discharge Medications Prescriptions: Ondansetron [Zofran] 4 mg IVP Q6HR PRN #10 vial PRN Reason: Nausea And Vomiting HYDROcodone/Acet 5/325 mg [[place] 5-325 mg] 1 tab PO Q6H PRN #8 tab PRN Reason: Pain Home Medications: Tizanidine HCl [Zanaflex] 4 mg PO BID 01/15/16 [History] Niacin [Niaspan] 1,000 mg PO DAILY 09/02/16 [History] Nitroglycerin [Nitrostat] 0.4 mg SL PRN PRN 09/02/16 [History] Montelukast [Singulair] 10 mg PO HS 07/25/17 [History] Pantoprazole Sodium 40 mg PO DAILY 07/25/17 [History] Simvastatin [Zocor] 40 mg PO HS 07/25/17 [History] Temazepam [Restoril] 30 mg PO HS 07/25/17 [History] Venlafaxine XR (24 HR) [Effexor Xr] 37.5 mg PO DAILY 07/25/17 [History] Verapamil [Isoptin] 120 mg PO DAILY 07/25/17 [History] rOPINIRole [Requip] 1 mg PO HS 07/25/17 [History] BuPROPion XL (24 HR) [Wellbutrin Xl] 300 mg DAILY 08/20/17 [History] Loratadine [Allergy Relief] 10 mg PO DAILY PRN #0 08/21/17 [Rx] Aripiprazole [Abilify] 20 mg PO DAILY 09/08/17 [History] Cholecalciferol (D-3) [Vitamin D] 5,000 unit PO DAILY 09/08/17 [History] Cyanocobalamin (B-12) [Vitamin B12] 1,000 mcg IM QMONTH 09/08/17 [History] Metoclopramide [Reglan] 5 mg PO QID 09/08/17 [History] Ondansetron [Zofran] 8 mg PO Q8HR PRN 09/08/17 [History] Ranitidine HCl [Zantac] 150 mg PO BID 09/08/17 [History] HYDROcodone/Acet 5/325 mg [[place]amar 5-325 mg] 1 tab PO Q6H PRN #8 tab 09/09/17 [Rx] Ondansetron [Zofran] 4 mg IVP Q6HR PRN #10 vial 09/09/17 [Rx] Allergies/Adverse Reactions: 3 Allergy/AdvReac Type Severity Reaction Status Date / Time acetaminophen [From Fioricet] Allergy Hives Verified 09/07/17 16:42 butalbital [From Fioricet] Allergy Hives Verified 09/07/17 16:42 caffeine [From Fioricet] Allergy Hives Verified 09/07/17 16:42 [place] Allergy Hives Verified 09/07/17 16:42 phenytoin [From Dilantin] Allergy Hives Verified 09/07/17 16:42 methocarbamol [From Robaxin] AdvReac Vomiting Verified 09/07/17 16:42 Date of admission: 09/07/17 19:39 Primary care physician: Niecy Albarran Consults: 09/07/17 20:39 Consult to Nutrition [CONS] Routine Comment: Consulting Provider: NUTRITION Reason for Dietary Consult: MST Score - Patient Status Disposition: Home, Self-Care Overall status at discharge: patient is progressing back to baseline - Discharge Instructions Instructions: Hydrocodone/Acetaminophen (By mouth), Ondansetron (Injection), Pancreatitis (DC), Low Fat Diet (DC), Chronic Obstructive Pulmonary Disease (DC) Follow Up With: Niecy Albarran [Primary Care Provider] - 09/10/17 1:30 pm - Diet and Activity Activity: resume usual activities as tolerated Diet: other (clear liquid diet today and advance in 2 days) Hospital course: Ms. Astudillo is a 51 year old female with PMH of asthma, COPD, coronary artery disease, GERD, hyperlipidemia, myocardial infarction, renal disease, seizures, and TIA. She presented to [facility] intractable nausea, vomiting and abdominal pain which began approximately 4 days prior. She has a history of multiple pancreatitis with gastric bypass surgery in 2015 at [facility]. This has been complicated by malabsorption. Her lipase was mildly elevated. Her CT abdomen/ pelvis showed no acute findings. She was treated conservatively with IV fluids. She was made nothing by mouth initially. We advanced her diet as tolerated. She was discharged on 1218 2017 after she showed significant improvement in pain. She does have a port and I have prescribed IV Zofran at discharge. She does get IV Zofran at home as well. - Time Spent with Patient Total time spent providing and/or coordinating discharge services: - Constitutional Vitals: Temp Pulse Resp BP Pulse Ox 97.9 F 60 16 101/67 98 09/09/17 07:30 09/09/17 07:30 09/09/17 07:30 09/09/17 07:30 09/09/17 07:30 General appearance: Present: mild distress, A&O X 3, answers questions appropriately Exam: GEN: NAD CVS: RRR. S1, S2, No m/r/g RESP: CTAB ABD: Soft, NT, ND, +BS EXT: No edema. 2+ DP. No rashes NEURO: Nonfocal
[2017-09-09 10:17] VITALS: BP 95/64
== END 2017-09-09 12:00 | disposition home or self-care (01) ==
LOC: 3ANU 15:49 → EMEROO 15:49 → 3ANU 20:05
PROVIDERS: ADMIT Internal Medicine Hematology & Oncology; ATTEND Internal Medicine

== ENCOUNTER 2017-10-01 22:37 | Observation (INO) ==
[2017-10-01] MEDS ORDERED: 0.9 % Sodium Chloride 1,000 ML IVC ONE (22:53)
[2017-10-01] MEDS ORDERED: Ondansetron 4 MG/2 ML VIAL IVP ONE (22:53)
[2017-10-01] MEDS ORDERED: *HR* HYDROmorphone (PF) 1 MG/ML SYRINGE IVP ONE ×2 (22:53→23:34)
[2017-10-01 23:10] LABS: Basophils # 0.1 K/mcL (0.0-0.2); Basophils % 0.8 %; Eosinophils # 0.2 K/mcL (0.0-0.6); Eosinophils % 2.2 %; Hematocrit 33.4 % (35.3-44.9); Hemoglobin 11.1 g/dL (11.5-15.4); Immature Granulocytes % 0.3 % (0-4); Immature Platelets 2.2 % (1.1-6.1); Lymphocytes # 3.4 K/mcL (0.6-4.6); Lymphocytes % 33.4 %; Mean Corpuscular HGB Conc 33.2 g/dL (31.6-35.5); Mean Corpuscular Hemoglobin 27.8 pg (28.0-33.3); Mean Corpuscular Volume 83.5 fL (83.0-100.0); Monocytes # 0.7 K/mcL (0.0-1.3); Monocytes % 6.8 %; Neutrophils # 5.8 K/mcL (1.6-8.9); Platelet Count 372 K/mcL (140-400); Red Cell Distribution Width 14.4 % (11.5-14.5); Segmented Neutrophils % 56.5 %
--- NOTE | 2017-10-01 23:23 | Emergency Department Note ---
Disposition Clinical Impression: Pancreatitis Disposition: Admitted As Inpatient Condition: Good Referrals: Niecy Albarran [Primary Care Provider] - Forms: ED Satisfaction Letter, Work/School Release Time of Disposition: 23:36 Abdominal Pain HPI - General Chief Complaint: ED Abdominal Pain Stated Complaint: abdominal pain,vomiting hx of pancreatitis Time Seen by Provider: 10/01/17 22:50 Source: patient Limitations: no limitations Nursing Notes Reviewed: Yes Vital Signs Reviewed: Yes - History of Present Illness HPI Narrative: 51-year-old female presents emergency room for upper abdominal pain. Patient she is a history of chronic pancreatitis and feels like her pancreas is causing her problems again. She is a history of a gastric bypass surgery 3 years ago that his left her with this issue with her pancreas. Her last bout of pancreatitis was partially one month ago. She has had associated nausea and vomiting 3-4 episodes today. She has had episodes of pain for the past 2-3 days. She is also had some loose stool 2 times today. No blood in her vomit or stool. She denies fevers. Pain is located to the periumbilical and epigastric region which is normal for her when she has these spells. Pain is worse with eating. Better at rest. Pain Scale: 7 - Related Data Home Medications Medication Instructions Recorded Confirmed Tizanidine HCl [Zanaflex] 4 mg PO BID 01/15/16 09/08/17 Niacin [Niaspan] 1,000 mg PO DAILY 09/02/16 09/08/17 Nitroglycerin [Nitrostat] 0.4 mg SL PRN PRN 09/02/16 09/08/17 Montelukast [Singulair] 10 mg PO HS 07/25/17 09/08/17 Pantoprazole Sodium 40 mg PO DAILY 07/25/17 09/08/17 Simvastatin [Zocor] 40 mg PO HS 07/25/17 09/08/17 Temazepam [Restoril] 30 mg PO HS 07/25/17 09/08/17 Venlafaxine XR (24 HR) [Effexor Xr] 37.5 mg PO DAILY 07/25/17 09/08/17 Verapamil [Isoptin] 120 mg PO DAILY 07/25/17 09/08/17 rOPINIRole [Requip] 1 mg PO HS 07/25/17 09/08/17 BuPROPion XL (24 HR) [Wellbutrin 300 mg DAILY 08/20/17 09/08/17 Xl] Aripiprazole [Abilify] 20 mg PO DAILY 09/08/17 09/08/17 Cholecalciferol (D-3) [Vitamin D] 5,000 unit PO DAILY 09/08/17 09/08/17 Cyanocobalamin (B-12) [Vitamin B12] 1,000 mcg IM QMONTH 09/08/17 09/08/17 Metoclopramide [Reglan] 5 mg PO QID 09/08/17 09/08/17 Ondansetron [Zofran] 8 mg PO Q8HR PRN 09/08/17 09/08/17 Ranitidine HCl [Zantac] 150 mg PO BID 09/08/17 09/08/17 Previous Rx's Medication Instructions Recorded Loratadine [Allergy Relief] 10 mg PO DAILY PRN #0 08/21/17 HYDROcodone/Acet 5/325 mg [[place] 1 tab PO Q6H PRN #8 tab 09/09/17 5-325 mg] Ondansetron [Zofran] 4 mg IVP Q6HR PRN #10 vial 09/09/17 Allergies Allergy/AdvReac Type Severity Reaction Status Date / Time acetaminophen [From Fioricet] Allergy Hives Verified 09/07/17 16:42 butalbital [From Fioricet] Allergy Hives Verified 09/07/17 16:42 caffeine [From Fioricet] Allergy Hives Verified 09/07/17 16:42 [place] Allergy Hives Verified 09/07/17 16:42 phenytoin [From Dilantin] Allergy Hives Verified 09/07/17 16:42 methocarbamol [From Robaxin] AdvReac Vomiting Verified 09/07/17 16:42 Review of Systems: Gen.: No fevers or chills or new weakness Eyes: Denies double vision or any vision changes Ears: Denies any otalgia Pharynx: Denies sore throat CV: Denies chest pain. Denies palpitations Respiratory: Denies any cough or sputum production. No shortness of breath. GI: +nv/d, +abd pain Neuro: Denies any headache. No problems with ambulation. No numbness. Skin: Denies any rashes or abrasions Psych: Denies any depression or suicidal or homicidal ideation Musculoskeletal: Denies any arthralgias or myalgias Abdominal Pain PMH - Past Medical History Medical history: Reports: asthma, COPD, coronary artery disease, GERD, hyperlipidemia, myocardial infarction, renal disease, seizures, TIA, other Female Surgical History: Reports: , cholecystectomy, hysterectomy, AD/ BSO, Tonsillectomy, other PURLER history: Reports: no PURLER history Psychiatric history: Reports: anxiety, depression - Social History Smoking status: Former smoker Alcohol use: Reports: none Drug use: Reports: none Physical Exam - General Limitations: no limitations General appearance: alert, in no apparent distress - Head Head exam: atraumatic, normocephalic - ENT ENT exam: normal exam - Neck Neck exam: Present: normal inspection - Chest Chest inspection: Present: normal inspection, symmetric chest wall rise - Respiratory Respiratory exam: Present: normal lung sounds bilaterally - Cardiovascular Cardiovascular exam: Present: regular rate, normal rhythm - Abdominal Exam Abdominal exam: Present: soft, tenderness (diffuse tenderness to epigastric and upper abd regions), guarding. Absent: distention - Extremities Exam Extremities exam: Present: normal inspection - Expanded Lower Extremity Exam Hip/Pelvis exam: Present: normal inspection - Back Exam Back exam: Present: normal inspection - Neurological Exam Neurological exam: Present: alert, oriented X3 - Psychiatric Psychiatric exam: Present: normal affect, normal mood - Skin Skin exam: Present: warm, dry, intact Course Vital Signs Temperature 98.2 F 10/01/17 22:41 Pulse Rate 105 10/01/17 22:41 Respiratory Rate 18 10/01/17 22:41 Blood Pressure 127/88 10/01/17 22:41 O2 Sat by Pulse Oximetry 100 10/01/17 22:41 Temperature 98.2 F 10/01/17 22:41 Pulse Rate 105 10/01/17 22:41 Respiratory Rate 18 10/01/17 22:41 Blood Pressure 127/88 10/01/17 22:41 O2 Sat by Pulse Oximetry 100 10/01/17 22:41 Oxygen Delivery Oxygen Delivery Room Air Abdominal Pain - MDM Narrative Medical decision making narrative: Patient had an elevated lipase around 213. No white count. Normal LFTs. Patient has a history of this in the past. I do not feel that she needs any further imaging at this time as she has had a recent CT scan in the past month and a recent MRI of the abdomen as well. All this has been done in the past for pancreatitis. We will consult the hospitalist for admission. - Medical Records Medical records reviewed: Yes I reviewed the patient's medical records. - Lab Data Lab results reviewed: Yes I reviewed the patient's lab results. Result diagrams: 10/01/17 23:01 10/01/17 23:01 Lab Results 10/01/17 10/01/17 Range/Units 23: 23:01 WBC 10.2 (4.3-11.1) K/mcL RBC 4.00 (3.82-4.97) M/mcL Hgb 11.1 L (11.5-15.4) g/dL Hct 33.4 L (35.3-44.9) % MCV 83.5 (83.0-100.0) fL MCH 27.8 L (28.0-33.3) pg MCHC 33.2 (31.6-35.5) g/dL RDW 14.4 (11.5-14.5) % Plt Count 372 (140-400) K/mcL MPV 9.0 L (9.4-12.4) fL Immature Gran % 0.3 (0-4) % Seg Neutrophils % 56.5 % Lymphocytes % 33.4 % Monocytes % 6.8 % Eosinophils % 2.2 % Basophils % 0.8 % Neutrophils # 5.8 (1.6-8.9) K/mcL Lymphocytes # 3.4 (0.6-4.6) K/mcL Monocytes # 0.7 (0.0-1.3) K/mcL Eosinophils # 0.2 (0.0-0.6) K/mcL Basophils # 0.1 (0.0-0.2) K/mcL Immature Plt Fraction 2.2 (1.1-6.1) % Sodium 135 L (136-145) mEq/L Potassium 4.1 (3.5-5.1) mEq/L Chloride 101 (98-107) mEq/L Carbon Dioxide 26 (23-29) mEq/L BUN 16 (6-20) mg/dL Creatinine 1.08 (0.60-1.20) mg/dL Est GFR ( Amer) > 60 (> 60) Est GFR (Non-Af Amer) 54 L (> 60) BUN/Creatinine Ratio 15 (6-26) Glucose 87 (70-105) mg/dL Calculated Osmolality 281 (280-300) Calcium 9.4 (8.6-10.3) mg/dL Total Bilirubin 0.2 L (0.3-1.0) mg/dL Direct Bilirubin 0.0 (0.0-0.2) mg/dL Indirect Bilirubin 0.2 (0.0-1.2) mg/dL AST 27 (13-39) Units/L ALT 27 (7-52) Units/L Alkaline Phosphatase 67 (34-104) Units/L Serum Total Protein 7.1 (6.4-8.9) g/dL Albumin 4.4 (3.5-5.7) g/dL Globulin 2.7 (2.4-3.5) g/dL Albumin/Globulin Ratio 1.6 (1.1-2.2) Amylase 100 (29-103) Units/L Lipase 213 H (11-82) Units/L - Radiology Data Radiology results reviewed: Yes I reviewed the patient's radiology results.
[2017-10-01 23:28] LABS: Alanine Aminotransferase 27 Units/L (7-52); Albumin 4.4 g/dL (3.5-5.7); Albumin/Globulin Ratio 1.6 (1.1-2.2); Alkaline Phosphatase 67 Units/L (34-104); Amylase 100 Units/L (29-103); Aspartate Amino Transferase 27 Units/L (13-39); BUN/Creatinine Ratio 15 (6-26); Bilirubin,Indirect 0.2 mg/dL (0.0-1.2); Bilirubin,Total 0.2 mg/dL (0.3-1.0); Blood Urea Nitrogen 16 mg/dL (6-20); Calcium 9.4 mg/dL (8.6-10.3); Carbon Dioxide 26 mEq/L (23-29); Chloride 101 mEq/L (98-107); Globulin 2.7 g/dL (2.4-3.5); Glucose 87 mg/dL (70-105); Lipase 213 Units/L (11-82); Osmolality,Calculated 281 (280-300); Potassium 4.1 mEq/L (3.5-5.1); Sodium 135 mEq/L (136-145); Total Protein 7.1 g/dL (6.4-8.9); eGFR For African Americans > 60 (> 60); eGFR For Non-African Americans 54 (> 60)
--- NOTE | 2017-10-02 00:44 | Internal Med History&Physical ---
<Elis Borrero-My - Last Filed: 10/02/17 02:55> Date of Encounter: 10/02/17 Time of Encounter: 00:38 Assessment and Plan (1) Acute pancreatitis Current visit: Yes Status: Acute Patient is mildly uncomfortable but appears in no acute distress. Patient is afebrile. Patient admits some pain, but she just received Dilaudid right before my exam. Labs showed elevated lipase around 213. No white count. Normal LFTs. Patient has a history of this in the past.No further imaging at this time as she has had a recent CT scan in the past month on 09/07/17 and a recent MRI of the abdomen. CT at that team read, per radiology report, no acute bowel obstruction, perforation or thickening. Normal appendix. Unremarkable pancreas. Status post gastric bypass which appears uncomplicated. 1. Make patient NPO. 2. Will administer IV fluids at 150 ml/hr 3. Pain control with dilaudid. 4. Will control nausea and vomiting with zofran as needed. 5. Will give protonix BID. 6. Continue to monitor the patient closely. Qualifiers: Pancreatitis type: unspecified pancreatitis type Qualified Code(s): K85.90 - Acute pancreatitis without necrosis or infection, unspecified (2) COPD (chronic obstructive pulmonary disease) Current visit: No Status: Chronic Will continue home medications. Continue to monitor the patient closely. Qualifiers: COPD type: unspecified COPD Qualified Code(s): J44.9 - Chronic obstructive pulmonary disease, unspecified (3) HLD (hyperlipidemia) Current visit: No Status: Chronic Will continue home medication. We will continue to monitor the patient closely. Qualifiers: Hyperlipidemia type: unspecified Qualified Code(s): E78.5 - Hyperlipidemia , unspecified (4) CKD (chronic kidney disease) Current visit: No Status: Chronic Stage III chronic kidney disease is stable at this time. The BUN is 16 and creatinine is 1.08. Continue home medications. Continue to monitor the patient closely. Qualifiers: Chronic kidney disease stage: stage 3 (moderate) Qualified Code(s): N18.3 - Chronic kidney disease, stage 3 (moderate) Internal Medicine - H&P: HPI Chief complaint: abdominal pain Admitted From: Emergency Dept History of present illness: Ms. Astudillo is a 51 year old female with a past medical history of chronic pancreatitis, bypass surgery in 2015, COPD, CAD, hyperlipidemia, stage III chronic kidney disease, TIA who presents to the emergency department complaining of epigastric abdominal pain for the past 3 days. The patient admits it has been worsening over three days and admits associated nausea and vomiting, diarrhea, and unable to hold any food or water down. She describes the epigastric abdominal pain as constant and sharp pain that radiates to her right upper quadrant that is worse with eating and improves with rest. She admits history of cholecystectomy. She admits this pain feels like her previous pancreatitis. Her last pancreatitis was approximately one month ago. She denies any fever, diaphoresis, headaches, vision changes, chest pain, difficulty breathing, shortness of breath, constipation, [employer] and [employer] blood in the stool, difficulty urinating, blood and urine, numbness and tingling, and any weaknesses. Past Med Surg Social Fam HX - Past Medical History Medical history: asthma, COPD, coronary artery disease, GERD, hyperlipidemia, myocardial infarction, renal disease, seizures, TIA, other Psychiatric history: anxiety, depression - Past Surgical History Surgical History: , cholecystectomy, hysterectomy - Social History Smoking Status: Former smoker Smokeless Tobacco Status: No Alcohol use: none Drug use: none - Family History Mother Family Member Ethnicity: Non- Living Status: Hx Family Cardiac Disorders: No Hx Family Respiratory Disorders: No Hx Family Cancer: Yes (Throat) Hx Family GI Disorders: No Hx Family Endocrine Disorder: No Hx Family Neuromuscular Disorders: No Hx Family Neurologic Disorders: No Hx Family HEENT Disorders: No Hx Family Autoimmune Disorders: No Father Family Member Ethnicity: Non- Living Status: Hx Family Cancer: Yes (Prostate) Hx Family Neurologic Disorders: Yes (Alzheimer's disease) Brother Family Member Ethnicity: Non- Living Status: Still Living Sister Family Member Ethnicity: Non- Living Status: Hx Family Cardiac Disorders: Yes (PA) Hx Family Cancer: Yes (Breast cancer) Internal Medicine - H&P: Meds Tizanidine HCl [Zanaflex] 4 mg PO BID 01/15/16 [History] Niacin [Niaspan] 1,000 mg PO DAILY 09/02/16 [History] Montelukast [Singulair] 10 mg PO HS 07/25/17 [History] Pantoprazole Sodium 40 mg PO DAILY 07/25/17 [History] Simvastatin [Zocor] 40 mg PO HS 07/25/17 [History] Temazepam [Restoril] 30 mg PO HS 07/25/17 [History] Venlafaxine XR (24 HR) [Effexor Xr] 37.5 mg PO DAILY 07/25/17 [History] Verapamil [Isoptin] 120 mg PO DAILY 07/25/17 [History] BuPROPion XL (24 HR) [Wellbutrin Xl] 300 mg DAILY 08/20/17 [History] Loratadine [Allergy Relief] 10 mg PO DAILY PRN #0 08/21/17 [Rx] Aripiprazole [Abilify] 20 mg PO DAILY 09/08/17 [History] Cholecalciferol (D-3) [Vitamin D] 5,000 unit PO DAILY 09/08/17 [History] Cyanocobalamin (B-12) [Vitamin B12] 1,000 mcg IM QMONTH 09/08/17 [History] Metoclopramide [Reglan] 5 mg PO QID 09/08/17 [History] Ondansetron [Zofran] 8 mg PO Q8HR PRN 09/08/17 [History] Ranitidine HCl [Zantac] 150 mg PO BID 09/08/17 [History] HYDROcodone/Acet 5/325 mg [[place] 5-325 mg] 1 tab PO Q6H PRN #8 tab 09/09/17 [Rx] Ondansetron [Zofran] 4 mg IVP Q6HR PRN #10 vial 09/09/17 [Rx] 3 Allergy/AdvReac Type Severity Reaction Status Date / Time acetaminophen [From Fioricet] Allergy Hives Verified 09/07/17 16:42 butalbital [From Fioricet] Allergy Hives Verified 09/07/17 16:42 caffeine [From Fioricet] Allergy Hives Verified 09/07/17 16:42 [place] Allergy Hives Verified 09/07/17 16:42 phenytoin [From Dilantin] Allergy Hives Verified 09/07/17 16:42 methocarbamol [From Robaxin] AdvReac Vomiting Verified 09/07/17 16:42 All Systems PM: A 10-system review of systems was performed and is negative for pertinent findings except as documented above in the HPI. - Constitutional Vitals: Temp Pulse Resp BP Pulse Ox 98.2 F 67 20 153/110 97 10/01/17 22:41 10/01/17 23:35 10/01/17 23:35 10/01/17 23:35 10/01/17 23:35 General appearance: Present: A&O X 3, pleasant. Absent: no acute distress - Head Head exam: Present: atraumatic, normocephalic - Eye Eye exam: Present: PERRL, conjuntiva pink, sclera anicteric Pupils: Present: PERRL - Neck Neck exam general surgery: Present: supple, trachea midline. Absent: lymphadenopathy - Respiratory Respiratory exam: Present: CTAB. Absent: accessory muscle use, rales, rhonchi, wheezes - Cardiovascular Cardiovascular exam: Present: RRR, +S1, +S2. Absent: diastolic murmur, gallop, rubs, systolic murmur - GI/Abdominal GI/Abdominal exam: Present: normal bowel sounds, soft, tenderness (Tenderness to palpation in the epigastrum and periumilcal. ), no peritoneal signs. Absent : distended - Extremities Exam Extremities exam: Present: warm, radial pulses palpable and symmetrical. Absent : calf tenderness, cyanotic, pedal edema - Neurological Exam Neurological exam: Present: CN II-XII intact, oriented X3, no focal deficits. Absent: pronater drift, facial droop, speech deficit - Skin Skin exam: Present: dry, intact Internal Med - H&P Results - Labs CBC & Chem 7: 10/01/17 23:01 10/01/17 23:01 Labs: Short CBC 10/01/17 Range/Units 23:01 WBC 10.2 (4.3-11.1) K/mcL Hgb 11.1 L (11.5-15.4) g/dL Hct 33.4 L (35.3-44.9) % Plt Count 372 (140-400) K/mcL Neutrophils # 5.8 (1.6-8.9) K/mcL BMP 10/01/17 23:01 Sodium 135 L Potassium 4.1 Chloride 101 Carbon Dioxide 26 BUN 16 Creatinine 1.08 Glucose 87 Calcium 9.4 Liver Function 10/01/17 Range/Units 23:01 Total Bilirubin 0.2 L (0.3-1.0) mg/dL Direct Bilirubin 0.0 (0.0-0.2) mg/dL AST 27 (13-39) Units/L ALT 27 (7-52) Units/L Alkaline Phosphatase 67 (34-104) Units/L Albumin 4.4 (3.5-5.7) g/dL <Soco Moreno - Last Filed: 10/02/17 05:46> Date of Encounter: 10/02/17 Time of Encounter: 05:30 Internal Medicine - H&P: HPI History of present illness: Ms. Astudillo is a 51 year old female All Systems PM: A 10-system review of systems was performed and is negative for pertinent findings except as documented above in the HPI. - Constitutional Vitals: Temp Pulse Resp BP Pulse Ox 98.6 F 65 17 150/90 99 10/02/17 03:54 10/02/17 03:54 10/02/17 03:54 10/02/17 03:54 10/02/17 03:54 Internal Med - H&P Results - Labs CBC & Chem 7: 10/01/17 23:01 10/01/17 23:01 Labs: Urine 10/02/17 Range/Units 03:00 Urine Color Yellow (Yellow) Urine Clarity Clear (Clear) Urine pH 6.0 (5.0-8.0) pH Units Ur Specific [place] 1.009 L (1.010-1.025) Urine Protein Negative (Neg-Trace) mg/dL Urine Glucose (UA) Normal (Normal) mg/dL - Attending Attestation Patient is a 51y/o female admitted for abdominal pain secondary to acute pancreatitis. Pt was recently hospitalized for the same. will continue supportive care, IV fluids, pain control, anti-emetics as needed. NPO at this time Case discussed with resident physician Aretha Borrero, I agree with her documented findings, assessment, and plan except as listed above
[2017-10-02] MEDS ORDERED: Naloxone 0.4 MG/ML INJ IVP PRN (01:01)
[2017-10-02] MEDS: 0.9 % Sodium Chloride 1,000 ML IVC SCH ×2 (02:16→09:32)
[2017-10-02 03:14] LABS: Bilirubin,Urine Negative (Negative); Blood,Urine Negative (Negative); Clarity,Urine Clear (Clear); Color,Urine Yellow (Yellow); Glucose,Urine (UA) Normal (Normal); Ketones,Urine Negative (Negative); Leukocyte Esterase,Urine Negative (Negative); Nitrite,Urine Negative (Negative); Protein,Urine Negative (Neg-Trace); Specific Gravity,Urine 1.009 (1.010-1.025); Urobilinogen,Urine Normal (Normal)
[2017-10-02] MEDS: Pantoprazole 40 MG VIAL IVP SCH ×2 (03:14→17:00)
[2017-10-02] MEDS: *HR* HYDROmorphone (PF) 1 MG/ML SYRINGE IVP PRN ×5 (04:09→21:42)
[2017-10-02] MEDS ORDERED: *HR* Promethazine 25 MG/ML VIAL IVP PRN (05:35)
[2017-10-02] MEDS ORDERED: *HR* Morphine 2 MG/ML SYRINGE IVP PRN (05:36)
[2017-10-02] MEDS ORDERED: Loratadine 10 MG TABLET PO PRN (05:43)
[2017-10-02] MEDS ORDERED: Cyanocobalamin (B-12) 1,000 MCG/ML VIAL IM SCH (05:45)
[2017-10-02] MEDS: *HR* Heparin 5,000 UNIT/ML VIAL SQ SCH ×2 (06:17→17:07)
[2017-10-02 06:24] LABS: Basophils # 0.1 K/mcL (0.0-0.2); Basophils % 0.5 %; Eosinophils # 0.2 K/mcL (0.0-0.6); Eosinophils % 2.6 %; Hematocrit 31.4 % (35.3-44.9); Hemoglobin 10.3 g/dL (11.5-15.4); Immature Granulocytes % 0.3 % (0-4); Lymphocytes % 32.5 %; Mean Corpuscular HGB Conc 32.8 g/dL (31.6-35.5); Mean Corpuscular Hemoglobin 27.5 pg (28.0-33.3); Mean Corpuscular Volume 83.7 fL (83.0-100.0); Mean Platelet Volume 9.3 fL (9.4-12.4); Monocytes # 0.5 K/mcL (0.0-1.3); Monocytes % 5.5 %; Neutrophils # 5.5 K/mcL (1.6-8.9); Platelet Count 317 K/mcL (140-400); Red Blood Count 3.75 M/mcL (3.82-4.97); Red Cell Distribution Width 14.3 % (11.5-14.5); Segmented Neutrophils % 58.6 %
[2017-10-02 06:37] LABS: Alanine Aminotransferase 42 Units/L (7-52); Albumin 3.8 g/dL (3.5-5.7); Albumin/Globulin Ratio 1.7 (1.1-2.2); Alkaline Phosphatase 64 Units/L (34-104); Aspartate Amino Transferase 60 Units/L (13-39); BUN/Creatinine Ratio 14 (6-26); Bilirubin,Total 0.3 mg/dL (0.3-1.0); Blood Urea Nitrogen 13 mg/dL (6-20); Calcium 8.5 mg/dL (8.6-10.3); Carbon Dioxide 27 mEq/L (23-29); Chloride 108 mEq/L (98-107); Chol/HDL Ratio 3.7 (0-4.9); Cholesterol 190 mg/dL (< 200); Globulin 2.3 g/dL (2.4-3.5); Glucose 80 mg/dL (70-105); HDL Cholesterol 51 mg/dL (40-59); LDL Cholesterol,Calculated 114 mg/dL (0-99); Magnesium 2.3 mg/dL (1.6-2.6); Osmolality,Calculated 291 (280-300); Phosphorous 3.9 mg/dL (2.7-4.5); Potassium 4.1 mEq/L (3.5-5.1); Sodium 141 mEq/L (136-145); Total Protein 6.1 g/dL (6.4-8.9); Triglycerides 126 mg/dL (< 150); eGFR For African Americans > 60 (> 60); eGFR For Non-African Americans > 60 (> 60)
[2017-10-02] MEDS: Cholecalciferol (D-3) 1,000 UNIT TABLET PO SCH (08:31)
[2017-10-02] MEDS: tiZANidine 4 MG TABLET PO SCH ×2 (08:31→21:41)
[2017-10-02] MEDS: ARIPiprazole 10 MG TABLET PO SCH (08:31)
[2017-10-02] MEDS: Niacin (24 HR) 500 MG TAB.ER.24H PO SCH (08:31)
[2017-10-02] MEDS: Famotidine 20 MG TABLET PO SCH ×2 (08:32→17:00)
[2017-10-02] MEDS: BuPROPion XL (24 HR) 150 MG TABLET PO SCH (08:32)
[2017-10-02] MEDS: Venlafaxine XR (24 HR) 37.5 MG CAP.ER.24H PO SCH (08:32)
[2017-10-02] MEDS: Ondansetron 4 MG/2 ML VIAL IVP PRN (12:19)
--- NOTE | 2017-10-02 13:52 | Event Note ---
Date of Encounter: 10/02/17 Time of Encounter: 13:52 Patient continues to have abdominal pain. Improving overall. Will keep nothing by mouth. Continue pain control with IV narcotic medications. Continue IV hydration.
[2017-10-02] MEDS: Temazepam 15 MG CAPSULE PO SCH (21:41)
[2017-10-03] MEDS: 0.9 % Sodium Chloride 1,000 ML IVC SCH ×3 (03:30→19:25)
[2017-10-03] MEDS: *HR* HYDROmorphone (PF) 1 MG/ML SYRINGE IVP PRN ×4 (03:31→21:47)
[2017-10-03] MEDS: *HR* Heparin 5,000 UNIT/ML VIAL SQ SCH ×2 (05:32→17:20)
[2017-10-03] MEDS: Pantoprazole 40 MG VIAL IVP SCH ×2 (05:32→17:45)
[2017-10-03] MEDS: Ondansetron 4 MG/2 ML VIAL IVP PRN ×2 (08:11→17:21)
[2017-10-03] MEDS: ARIPiprazole 10 MG TABLET PO SCH (09:07)
[2017-10-03] MEDS: Venlafaxine XR (24 HR) 37.5 MG CAP.ER.24H PO SCH (09:07)
[2017-10-03] MEDS: Famotidine 20 MG TABLET PO SCH ×2 (09:07→17:21)
[2017-10-03] MEDS: Cholecalciferol (D-3) 1,000 UNIT TABLET PO SCH (09:08)
[2017-10-03] MEDS: Niacin (24 HR) 500 MG TAB.ER.24H PO SCH (09:08)
[2017-10-03] MEDS: tiZANidine 4 MG TABLET PO SCH ×2 (09:08→19:26)
[2017-10-03] MEDS: BuPROPion XL (24 HR) 150 MG TABLET PO SCH (09:08)
[2017-10-03] MEDS: *HR* OxyCODONE Immed Rel 5 MG TABLET PO PRN (12:36)
--- NOTE | 2017-10-03 16:04 | Internal Med Progress Note ---
Date of Encounter: 10/03/17 Time of Encounter: 16:01 - Assessment and plan (1) Acute pancreatitis Current Visit: Yes Status: Acute Assessment and plan: Improving. Will start patient on clear liquid diet. Patient reports having intermittent abdominal pain while at home even between her hospital visits. Patient may have underlying chronic pancreatitis. We will start supportive treatment with pancreatic enzymes. Moderate risk for complications. Will start patient on oral narcotic medications and use intravenous narcotic medications for severe pain. Qualifiers: Pancreatitis type: unspecified pancreatitis type Qualified Code(s): K85.90 - Acute pancreatitis without necrosis or infection, unspecified (2) CKD (chronic kidney disease) Current Visit: Yes Status: Chronic Assessment and plan: Renal function remains stable. Qualifiers: Chronic kidney disease stage: stage 2 (mild) Qualified Code(s): N18.2 - Chronic kidney disease, stage 2 (mild) (3) COPD (chronic obstructive pulmonary disease) Current Visit: Yes Status: Chronic Assessment and plan: Not in acute extubation. Will use bronchodilators as needed Qualifiers: COPD type: unspecified COPD Qualified Code(s): J44.9 - Chronic obstructive pulmonary disease, unspecified (4) HLD (hyperlipidemia) Current Visit: Yes Status: Chronic Assessment and plan: Patient taking Zocor. Statins can cause pancreatitis. We will hold this medication for now. Patient has LDL of 114. HDL of 51. Total cholesterol of 190. Would recommend she follow up with her primary care provider as outpatient for further management. Qualifiers: Hyperlipidemia type: unspecified Qualified Code(s): E78.5 - Hyperlipidemia , unspecified - Subjective Interval history: Patient is feeling better today. Abdominal pain is improving but still present and requiring intravenous medications. Denies any new episodes of nausea or vomiting. No new episodes of diarrhea. - Constitutional Vitals: Temp Pulse Resp BP Pulse Ox 98.9 F 75 16 121/79 95 10/03/17 11:26 10/03/17 11:26 10/03/17 11:26 10/03/17 11:26 10/03/17 11:26 General appearance: Present: mild distress, A&O X 3, pleasant, answers questions appropriately - Neck Neck exam general surgery: Present: supple, trachea midline. Absent: lymphadenopathy - Respiratory Respiratory exam: Present: CTAB. Absent: accessory muscle use, rales, rhonchi, wheezes - Cardiovascular Cardiovascular exam: Present: RRR, +S1, +S2. Absent: diastolic murmur, gallop, rubs, systolic murmur - GI/Abdominal GI/Abdominal exam: Present: normal bowel sounds, soft, tenderness (Epigastric), no peritoneal signs. Absent: distended - Extremities Exam Extremities exam: Present: warm, radial pulses palpable and symmetrical. Absent : calf tenderness, cyanotic, pedal edema Internal Medicine: Result - Labs CBC & Chem 7: 10/02/17 05:52 10/02/17 05:52 Consult Discharge Plan - Plan Referrals: Niecy Albarran [Primary Care Provider] -
[2017-10-03] MEDS: Temazepam 15 MG CAPSULE PO SCH (19:26)
[2017-10-04] MEDS: *HR* HYDROmorphone (PF) 1 MG/ML SYRINGE IVP PRN ×5 (01:52→19:18)
[2017-10-04] MEDS: Ondansetron 4 MG/2 ML VIAL IVP PRN ×3 (01:59→20:12)
[2017-10-04] MEDS: 0.9 % Sodium Chloride 1,000 ML IVC SCH ×3 (04:00→20:21)
[2017-10-04] MEDS: Pantoprazole 40 MG VIAL IVP SCH ×2 (05:49→16:45)
[2017-10-04] MEDS: *HR* Heparin 5,000 UNIT/ML VIAL SQ SCH ×2 (05:49→16:45)
[2017-10-04] MEDS: ARIPiprazole 10 MG TABLET PO SCH (06:45)
[2017-10-04] MEDS: Venlafaxine XR (24 HR) 37.5 MG CAP.ER.24H PO SCH (06:45)
[2017-10-04] MEDS: Famotidine 20 MG TABLET PO SCH ×2 (06:45→14:05)
[2017-10-04] MEDS: tiZANidine 4 MG TABLET PO SCH ×2 (06:46→20:13)
[2017-10-04] MEDS: BuPROPion XL (24 HR) 150 MG TABLET PO SCH (06:46)
[2017-10-04] MEDS: Niacin (24 HR) 500 MG TAB.ER.24H PO SCH (06:46)
[2017-10-04] MEDS: Cholecalciferol (D-3) 1,000 UNIT TABLET PO SCH (06:46)
[2017-10-04] MEDS ORDERED: Ipratropium/Albuterol Neb 3 ML IH PRN (14:58)
--- NOTE | 2017-10-04 14:58 | Internal Med Progress Note ---
Date of Encounter: 10/04/17 Time of Encounter: 14:56 - Assessment and plan (1) Acute pancreatitis Current Visit: Yes Status: Acute Assessment and plan: Patient reports that her abdominal discomfort is improving. Still remains nauseated and did not tolerate diet. Continue current management. We attempt to start clear liquid diet later today. Continue PPI. Pain control with intravenous and oral narcotic medications. Moderate risk for complications. Qualifiers: Pancreatitis type: unspecified pancreatitis type Qualified Code(s): K85.90 - Acute pancreatitis without necrosis or infection, unspecified (2) CKD (chronic kidney disease) Current Visit: Yes Status: Chronic Assessment and plan: Stable Qualifiers: Chronic kidney disease stage: stage 2 (mild) Qualified Code(s): N18.2 - Chronic kidney disease, stage 2 (mild) (3) COPD (chronic obstructive pulmonary disease) Current Visit: Yes Status: Chronic Assessment and plan: On bronchodilators as needed Qualifiers: COPD type: unspecified COPD Qualified Code(s): J44.9 - Chronic obstructive pulmonary disease, unspecified (4) HLD (hyperlipidemia) Current Visit: Yes Status: Chronic Qualifiers: Hyperlipidemia type: mixed hyperlipidemia Qualified Code(s): E78.2 - Mixed hyperlipidemia - Subjective Interval history: Patient did not tolerate clear liquid diet yesterday. Began to have abdominal pain and nausea after she eats. Feels better now. Concerned about starting diet again. Continues to have abdominal discomfort and epigastric region. - Constitutional Vitals: Temp Pulse Resp BP Pulse Ox 98.0 F 77 14 142/91 94 10/04/17 12:16 10/04/17 12:16 10/04/17 12:16 10/04/17 12:16 10/04/17 12:16 General appearance: Present: mild distress, A&O X 3, pleasant, answers questions appropriately - Neck Neck exam general surgery: Present: supple, trachea midline. Absent: lymphadenopathy - Respiratory Respiratory exam: Present: CTAB. Absent: accessory muscle use, rales, rhonchi, wheezes - Cardiovascular Cardiovascular exam: Present: RRR, +S1, +S2. Absent: diastolic murmur, gallop, rubs, systolic murmur - GI/Abdominal GI/Abdominal exam: Present: normal bowel sounds, soft, tenderness, no peritoneal signs. Absent: distended - Extremities Exam Extremities exam: Present: warm, radial pulses palpable and symmetrical. Absent : calf tenderness, cyanotic, pedal edema Internal Medicine: Result - Labs CBC & Chem 7: 10/02/17 05:52 10/02/17 05:52 Consult Discharge Plan - Plan Referrals: Niecy Albarran [Primary Care Provider] -
[2017-10-04 16:26] LABS: BUN/Creatinine Ratio 5 (6-26); Blood Urea Nitrogen 4 mg/dL (6-20); Calcium 8.8 mg/dL (8.6-10.3); Carbon Dioxide 30 mEq/L (23-29); Chloride 106 mEq/L (98-107); Glucose 83 mg/dL (70-105); Osmolality,Calculated 286 (280-300); Potassium 3.6 mEq/L (3.5-5.1); Sodium 140 mEq/L (136-145); eGFR For African Americans > 60 (> 60); eGFR For Non-African Americans > 60 (> 60)
[2017-10-04] MEDS: *HR* OxyCODONE Immed Rel 5 MG TABLET PO PRN (16:54)
[2017-10-04] MEDS: Temazepam 15 MG CAPSULE PO SCH (20:13)
[2017-10-05] MEDS: *HR* HYDROmorphone (PF) 1 MG/ML SYRINGE IVP PRN ×2 (00:45→04:52)
[2017-10-05] MEDS: 0.9 % Sodium Chloride 1,000 ML IVC SCH (04:03)
[2017-10-05] MEDS: *HR* Heparin 5,000 UNIT/ML VIAL SQ SCH (04:53)
[2017-10-05] MEDS: Pantoprazole 40 MG VIAL IVP SCH (04:56)
[2017-10-05] MEDS: Venlafaxine XR (24 HR) 37.5 MG CAP.ER.24H PO SCH (07:42)
[2017-10-05] MEDS: Niacin (24 HR) 500 MG TAB.ER.24H PO SCH (07:42)
[2017-10-05] MEDS: tiZANidine 4 MG TABLET PO SCH (07:42)
[2017-10-05] MEDS: BuPROPion XL (24 HR) 150 MG TABLET PO SCH (07:42)
[2017-10-05] MEDS: ARIPiprazole 10 MG TABLET PO SCH (07:42)
[2017-10-05] MEDS: Cholecalciferol (D-3) 1,000 UNIT TABLET PO SCH (07:43)
[2017-10-05] MEDS: Famotidine 20 MG TABLET PO SCH (07:43)
[2017-10-05] MEDS: *HR* OxyCODONE Immed Rel 5 MG TABLET PO PRN (08:51)
[2017-10-05] MEDS ORDERED: Ondansetron ODT 4 MG TAB.RAPDIS SL PRN (09:40)
[2017-10-05 11:17] VITALS: BP 123/84
--- NOTE | 2017-10-05 11:23 | Discharge Summary ---
Date of Encounter: 10/05/17 Time of Encounter: 11:20 - Discharge Diagnosis (1) Acute pancreatitis Priority: Primary Status: Acute Qualifiers: Pancreatitis type: other Acute pancreatitis complication: no infection or necrosis Qualified Code(s): K85.80 - Other acute pancreatitis without necrosis or infection (2) CKD (chronic kidney disease) Priority: Secondary Status: Chronic Qualifiers: Chronic kidney disease stage: stage 2 (mild) Qualified Code(s): N18.2 - Chronic kidney disease, stage 2 (mild) (3) COPD (chronic obstructive pulmonary disease) Priority: Secondary Status: Chronic Qualifiers: COPD type: unspecified COPD Qualified Code(s): J44.9 - Chronic obstructive pulmonary disease, unspecified (4) HLD (hyperlipidemia) Priority: Secondary Status: Chronic Qualifiers: Hyperlipidemia type: mixed hyperlipidemia Qualified Code(s): E78.2 - Mixed hyperlipidemia - Discharge Medications Prescriptions: Lipase/Protease/Amylase [Sivakumar Hopkins 6,000 Units Capsule] 1 each PO QIDA #120 capsule.dr Home Medications: Tizanidine HCl [Zanaflex] 4 mg PO BID 01/15/16 [History] Niacin [Niaspan] 1,000 mg PO DAILY 09/02/16 [History] Montelukast [Singulair] 10 mg PO HS 07/25/17 [History] Temazepam [Restoril] 30 mg PO HS 07/25/17 [History] Venlafaxine XR (24 HR) [Effexor Xr] 37.5 mg PO DAILY 07/25/17 [History] Verapamil [Isoptin] 120 mg PO DAILY 07/25/17 [History] BuPROPion XL (24 HR) [Wellbutrin Xl] 300 mg DAILY 08/20/17 [History] Loratadine [Allergy Relief] 10 mg PO DAILY PRN #0 08/21/17 [Rx] Aripiprazole [Abilify] 20 mg PO DAILY 09/08/17 [History] Cholecalciferol (D-3) [Vitamin D] 5,000 unit PO DAILY 09/08/17 [History] Cyanocobalamin (B-12) [Vitamin B12] 1,000 mcg IM QMONTH 09/08/17 [History] Metoclopramide [Reglan] 5 mg PO ACHS 09/08/17 [History] Ranitidine HCl [Zantac] 150 mg PO BID 09/08/17 [History] Ondansetron [Zofran] 4 mg IVP Q6HR PRN #10 vial 09/09/17 [Rx] Lipase/Protease/Amylase [Sivakumar [place] 6,000 Units Capsule] 1 each PO QIDAC #120 capsule. 10/05/17 [Rx] Allergies/Adverse Reactions: 3 Allergy/AdvReac Type Severity Reaction Status Date / Time acetaminophen [From Fioricet] Allergy Hives Verified 10/02/17 09:28 butalbital [From Fioricet] Allergy Hives Verified 10/02/17 09:28 caffeine [From Fioricet] Allergy Hives Verified 10/02/17 09:28 [place] Allergy Hives Verified 10/02/17 09:28 phenytoin [From Dilantin] Allergy Hives Verified 10/02/17 09:28 methocarbamol [From Robaxin] AdvReac Vomiting Verified 10/02/17 09:28 Date of admission: 10/02/17 01:20 Primary care physician: Niecy Albarran Discharging clinician: Althea Kauffman Anticipated date of discharge: 10/05/17 - Patient Status Disposition: Home, Self-Care Condition: Good Functional capacity at discharge: independent ambulation Overall status at discharge: patient is progressing back to baseline - Discharge Instructions Instructions: Pancreatitis (DC), Chronic Obstructive Pulmonary Disease (DC) Follow Up With: Niecy Albarran [Primary Care Provider] - (in 1 week) Additional Instructions: FOLLOW UP WITH YOUR PRIMARY DOCTOR IN 1 WEEK. YOU WILL NEED TO CALL FOR AN APPOINTMENT IF SYMPTOMS RETURN, GO TO THE ER TAKE ALL MEDICATIONS PRESCRIBED - Diet and Activity Activity: increase activity as tolerated Diet: advance to your usual diet, diabetic diet, low fat, low cholesterol, low salt diet Hospital course: Ms. Astudillo is a 51 year old female patient with a history of Penelope-en-Y bypass, recurrent bouts of pancreatitis presented to the ER with episode of acute abdominal pain. She was found to have elevation in her lipase. She was hospitalized for acute pancreatitis and was treated with intravenous pain medications along with IV hydration. She was kept nothing by mouth. Patient had recently undergone imaging of her abdomen and so repeat imaging was not done. She already has had prior cholecystectomy done. Recent abdominal MRI did not reveal any choledocholithiasis. Her symptoms have slowly improved and since last night which she has been tolerating clear liquids well. She has been transitioned to regular diet today and is doing well with that. She is clinically stable to be discharged home at this time. I recommend she stop taking simvastatin at this time due to its risk of inducing pancreatitis. She will also be placed on Creon due to her recurrent bouts of pancreatitis associated with diarrhea which may be an indicator of chronic pancreatitis. She will follow up with her primary care provider for further management. - Time Spent with Patient Total time spent providing and/or coordinating discharge services: Greater than 30 minutes (32 min) - Constitutional Vitals: Temp Pulse Resp BP Pulse Ox 98.3 F 72 16 123/84 99 10/05/17 11:16 10/05/17 11:16 10/05/17 11:16 10/05/17 11:16 10/05/17 11:16 General appearance: Present: mild distress, A&O X 3, pleasant, answers questions appropriately - Respiratory Respiratory exam: Present: CTAB. Absent: accessory muscle use, rales, rhonchi, wheezes - Cardiovascular Cardiovascular exam: Present: RRR, +S1, +S2. Absent: diastolic murmur, gallop, rubs, systolic murmur - GI/Abdominal GI/Abdominal exam: Present: normal bowel sounds, soft, no peritoneal signs. Absent: distended, tenderness - Extremities Exam Extremities exam: Present: warm, radial pulses palpable and symmetrical. Absent : calf tenderness, cyanotic, pedal edema - Neurological Exam Neurological exam: Present: alert, oriented X3, no focal deficits. Absent: facial droop, speech deficit
== END 2017-10-05 13:18 | disposition home or self-care (01) ==
LOC: EMEROO 22:37 → 3NENU 22:37 → SUATTDRO 10-02 01:20 → 3NENU 10-02 02:02
PROVIDERS: ADMIT Internal Medicine Hematology & Oncology; ATTEND Internal Medicine

== ENCOUNTER 2017-12-28 14:08 | Inpatient (IN) ==
[~2017-12-28 14:08] MED LIST: Aminoglycoside Consult 1 EACH MC ONE
--- NOTE | 2017-12-28 14:27 | Emergency Department Note ---
Disposition Clinical Impression: Port catheter in place Cellulitis Qualifiers: Site of cellulitis: trunk Site of cellulitis of trunk: chest wall Qualified Code(s): L03.313 - Cellulitis of chest wall Disposition: Admitted As Inpatient Condition: Good Forms: ED Satisfaction Letter, Work/School Release General Adult HPI - General Chief complaint: ED Abdominal Pain Stated complaint: ABD Pain "Port Hurts" Time Seen by Provider: 12/28/17 14:15 Source: patient Mode of arrival: ambulatory Limitations: no limitations Nursing Notes Reviewed: Yes Vital Signs Reviewed: Yes - History of Present Illness HPI Narrative: 52-year-old female with significant past medical history of 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 Patient states it was replaced recently and lab work was drawn on it a few days ago. It was flushed without difficulty. Today she tried to give herself some Zofran through the port and she had difficulty flushing it. She put some heparin through it and then it flushed without difficulty. Patient noticed that above the site of the port and around it was red and hard. Patient was concerned she could have an infection or clot in the port. Patient denies any fevers at home. She denies any changes in her abdominal pain, nausea or diarrhea. Pain Scale: 6 - Related Data Home Medications Medication Instructions Recorded Confirmed Tizanidine HCl [Zanaflex] 4 mg PO BID 01/15/16 12/11/17 Niacin [Niaspan] 1,000 mg PO DAILY 09/02/16 12/11/17 Montelukast [Singulair] 10 mg PO HS 07/25/17 12/11/17 Temazepam [Restoril] 30 mg PO HS PRN 07/25/17 12/11/17 Venlafaxine XR (24 HR) [Effexor Xr] 37.5 mg PO DAILY 07/25/17 12/11/17 BuPROPion XL (24 HR) [Wellbutrin 300 mg PO DAILY 08/20/17 12/11/17 Xl] Aripiprazole [Abilify] 20 mg PO DAILY 09/08/17 12/11/17 Cholecalciferol (D-3) [Vitamin D] 5,000 unit PO DAILY 09/08/17 12/11/17 Cyanocobalamin (B-12) [Vitamin B12] 1,000 mcg IM QMONTH 09/08/17 12/11/17 Ranitidine HCl [Zantac] 150 mg PO BID 09/08/17 12/11/17 Lidocaine/Prilocaine CREAM [Emla] 1 appl TP AD 12/11/17 12/11/17 Loratadine [Allergy Relief] 10 mg PO DAILY 12/11/17 12/11/17 Ondansetron [Zofran] 8 mg PO Q8H PRN 12/11/17 12/11/17 Promethazine [Phenergan] 25 mg RC Q12H PRN 12/11/17 12/11/17 Previous Rx's Medication Instructions Recorded Lipase/Protease/Amylase [[place] 1 each PO QIDAC #120 capsule. 10/05/17 6,000 Units Capsule] Dicyclomine [Bentyl] 20 mg PO Q6H PRN #30 capsule 12/19/17 HYDROcodone/Acet 5/325 mg [[place] 1 tab PO Q6H PRN 3 Days #12 tab 12/19/17 5-325 mg] Omeprazole [PriLOSEC] 20 mg PO DAILY #28 cap 12/19/17 Oxycodone HCl 5 mg PO Q6H 3 Days #12 tablet 12/19/17 Sucralfate [Carafate] 1 gm PO QIDAC #40 tablet 12/19/17 Allergies Allergy/AdvReac Type Severity Reaction Status Date / Time acetaminophen [From Fioricet] Allergy Hives Verified 12/11/17 13:50 butalbital [From Fioricet] Allergy Hives Verified 12/11/17 13:50 caffeine [From Fioricet] Allergy Hives Verified 12/11/17 13:50 [place] Allergy Hives Verified 12/11/17 13:50 phenytoin [From Dilantin] Allergy Hives Verified 12/11/17 13:50 methocarbamol [From Robaxin] AdvReac Vomiting Verified 12/11/17 13:50 All systems ED: reviewed and negative except as stated. Gastrointestinal: Reports: nausea, diarrhea Integumentary: Reports: other (redness around left port) Past Medical History - Past Medical History Attestation: Yes The following information was validated with the patient. Medical history: Reports: asthma, COPD, coronary artery disease, GERD, hyperlipidemia, myocardial infarction, renal disease, seizures, TIA, other Surgical history: Reports: , cholecystectomy, herniorrhaphy, hysterectomy, bariatric surgery (Gastric bypass 2014) Psychiatric history: Reports: anxiety, depression OUTSIDE SALES ACCOUNT MANAGER history: Reports: no OUTSIDE SALES ACCOUNT MANAGER history - Social History Smoking Status: Never smoker Smokeless Tobacco Status: No Alcohol use: Reports: none Drug use: Reports: none Physical Exam - General Limitations: no limitations General appearance: alert, in no apparent distress - Head Head exam: atraumatic, normocephalic, normal inspection - Eye Eye exam: Present: normal appearance. Absent: scleral icterus, conjunctival injection - ENT ENT exam: normal exam, mucous membranes moist - Neck Neck exam: Present: normal inspection, full ROM. Absent: tenderness, meningismus - Chest Chest inspection: Present: normal inspection, symmetric chest wall rise. Absent : tenderness, rash - Respiratory Respiratory exam: Present: normal lung sounds bilaterally. Absent: respiratory distress, wheezes - Cardiovascular Cardiovascular exam: Present: normal rhythm, tachycardia, normal heart sounds - Abdominal Exam Abdominal exam: Present: soft, tenderness. Absent: distention, guarding, rebound, rigidity Abdominal tenderness: Present: diffuse, mild - Extremities Exam Extremities exam: Present: normal inspection, full ROM - Neurological Exam Neurological exam: Present: alert, oriented X3 - Psychiatric Psychiatric exam: Present: normal affect, normal mood - Skin Skin exam: Present: warm, other (Warmth and mild redness around the site of the port. Hardness to the anterior portion of the port. No fluctuance noted. No crepitus noted.) Course Course Narrative: 52-year-old female presenting to the emergency department with concern for her port being infected. Patient is alert and oriented 3 in the room. Mildly tachycardic but otherwise vital signs stable. Due to physical exam showing some redness and hardness around the site of the port we will obtain a CT of the chest with IV contrast. We will also obtain basic laboratory analysis including CMP, CBC and lipase. Patient disposition pending results. Patient agrees with this plan. - Reevaluation(s) Reevaluation #1: Patient's laboratory analysis shows mild hyponatremia at 130. We will provide the patient with 2 L normal saline. Otherwise all other laboratory analysis unchanged. CT of the chest does show 1. Extensive stranding consistent with cellulitis associated with the catheter of the left subclavian port, involving the anterior left chest wall, left interpectoral space, left axilla, and left supraclavicular fossa. No findings suggestive of associated abscess or deep venous thrombosis. 2. New 0.6 cm x 0.6 cm solid nodule in left upper lobe, and new groundglass nodules measuring up to 0.6 cm x 0.4 cm in the right upper lobe with a possible partial cavitation. An infectious or inflammatory etiology such as septic embolism is favored given lack of reported primary malignancy. Recommend follow-up chest CT in 3 months to ensure resolution. 3. Liquid stool throughout the included colon, suggesting diarrhea. Correlate for symptoms of enterocolitis. Due to this we will plan to treat the patient with vancomycin and Zosyn. We will plan to admit the patient for cellulitis around her indwelling port. Patient is alert and oriented 3 in the room. Stable vital signs. I spoke with the hospitalist on-call Dr. Puente who agrees to accept the patient. Patient agrees with this plan. Vital Signs Temperature 97.9 F 12/28/17 14:12 Pulse Rate 103 12/28/17 14:12 Respiratory Rate 20 12/28/17 14:12 Blood Pressure 137/87 12/28/17 14:12 O2 Sat by Pulse Oximetry 98 12/28/17 14:12 Temperature 97.9 F 12/28/17 14:12 Pulse Rate 106 12/28/17 15:10 Respiratory Rate 20 12/28/17 15:10 Blood Pressure 129/88 12/28/17 15:10 O2 Sat by Pulse Oximetry 100 12/28/17 15:10 Oxygen Delivery Oxygen Delivery Room Air Medical Decision Making - Lab Data Result diagrams: 12/28/17 14:42 12/28/17 14:42 Lab Results 12/28/17 12/28/17 12/28/17 Range/Units 14:25 14:42 14:42 WBC 10.6 (4.3-11.1) K/mcL RBC 4.07 (3.82-4.97) M/mcL Hgb 10.5 L (11.5-15.4) g/dL Hct 33.5 L (35.3-44.9) % MCV 82.3 L (83.0-100.0) fL MCH 25.8 L (28.0-33.3) pg MCHC 31.3 L (31.6-35.5) g/dL RDW 16.7 H (11.5-14.5) % Plt Count 449 H (140-400) K/mcL MPV 8.6 L (9.4-12.4) fL Immature Gran % 0.3 (0-4) % Seg Neutrophils % 74.3 % Lymphocytes % 17.4 % Monocytes % 6.0 % Eosinophils % 1.3 % Basophils % 0.7 % Neutrophils # 7.9 (1.6-8.9) K/mcL Lymphocytes # 1.9 (0.6-4.6) K/mcL Monocytes # 0.6 (0.0-1.3) K/mcL Eosinophils # 0.1 (0.0-0.6) K/mcL Basophils # 0.1 (0.0-0.2) K/mcL Sodium 130 L (136-145) mEq/L Potassium 3.1 L (3.5-5.1) mEq/L Chloride 95 L (98-107) mEq/L Carbon Dioxide 27 (23-29) mEq/L BUN 7 (6-20) mg/dL Creatinine 0.88 (0.60-1.20) mg/dL Est GFR ( Amer) > 60 (> 60) Est GFR (Non-Af Amer) > 60 (> 60) BUN/Creatinine Ratio 8 (6-26) Glucose 89 (70-105) mg/dL Calculated Osmolality 267 L (280-300) Lactic Acid (0.5-2.2) mmol/L Calcium 9.2 (8.6-10.3) mg/dL Total Bilirubin 0.4 (0.3-1.0) mg/dL AST 25 (13-39) Units/L ALT 25 (7-52) Units/L Alkaline Phosphatase 110 H (34-104) Units/L Serum Total Protein 7.9 (6.4-8.9) g/dL Albumin 4.5 (3.5-5.7) g/dL Globulin 3.4 (2.4-3.5) g/dL Albumin/Globulin Ratio 1.3 (1.1-2.2) Lipase 35 (11-82) Units/L Urine Color Yellow (Yellow) Urine Clarity Cloudy A (Clear) Urine pH 5.5 (5.0-8.0) pH Units Ur Specific [place] 1.023 (1.010-1.025) Urine Protein Negative (Neg-Trace) mg/dL Urine Glucose (UA) Normal (Normal) mg/dL Urine Ketones Negative (Negative) mg/dL Urine Blood Negative (Negative) Urine Nitrite Negative (Negative) Urine Bilirubin Small H (Negative) Urine Urobilinogen Normal (Normal) mg/dL Ur Leukocyte Esterase Moderate H (Negative) Urine Microscopic RBC 5-15 H (0-3) per hpf Urine Microscopic WBC TNTC H (0-3) per hpf Ur Squamous Epith Cells Many H (None-Few) per lpf Urine Bacteria None Seen (None-Few) per hpf Hyaline Casts None Seen (None-Few) per lpf Ur Culture Indicated? NO. (NO) 12/28/17 Range/Units 14:43 WBC (4.3-11.1) K/mcL RBC (3.82-4.97) M/mcL Hgb (11.5-15.4) g/dL Hct (35.3-44.9) % MCV (83.0-100.0) fL MCH (28.0-33.3) pg MCHC (31.6-35.5) g/dL RDW (11.5-14.5) % Plt Count (140-400) K/mcL MPV (9.4-12.4) fL Immature Gran % (0-4) % Seg Neutrophils % % Lymphocytes % % Monocytes % % Eosinophils % % Basophils % % Neutrophils # (1.6-8.9) K/mcL Lymphocytes # (0.6-4.6) K/mcL Monocytes # (0.0-1.3) K/mcL Eosinophils # (0.0-0.6) K/mcL Basophils # (0.0-0.2) K/mcL Sodium (136-145) mEq/L Potassium (3.5-5.1) mEq/L Chloride (98-107) mEq/L Carbon Dioxide (23-29) mEq/L BUN (6-20) mg/dL Creatinine (0.60-1.20) mg/dL Est GFR ( Amer) (> 60) Est GFR (Non-Af Amer) (> 60) BUN/Creatinine Ratio (6-26) Glucose (70-105) mg/dL Calculated Osmolality (280-300) Lactic Acid 1.1 (0.5-2.2) mmol/L Calcium (8.6-10.3) mg/dL Total Bilirubin (0.3-1.0) mg/dL AST (13-39) Units/L ALT (7-52) Units/L Alkaline Phosphatase (34-104) Units/L Serum Total Protein (6.4-8.9) g/dL Albumin (3.5-5.7) g/dL Globulin (2.4-3.5) g/dL Albumin/Globulin Ratio (1.1-2.2) Lipase (11-82) Units/L Urine Color (Yellow) Urine Clarity (Clear) Urine pH (5.0-8.0) pH Units Ur Specific [place] (1.010-1.025) Urine Protein (Neg-Trace) mg/dL Urine Glucose (UA) (Normal) mg/dL Urine Ketones (Negative) mg/dL Urine Blood (Negative) Urine Nitrite (Negative) Urine Bilirubin (Negative) Urine Urobilinogen (Normal) mg/dL Ur Leukocyte Esterase (Negative) Urine Microscopic RBC (0-3) per hpf Urine Microscopic WBC (0-3) per hpf Ur Squamous Epith Cells (None-Few) per lpf Urine Bacteria (None-Few) per hpf Hyaline Casts (None-Few) per lpf Ur Culture Indicated? (NO)
--- NOTE | 2017-12-28 14:43 | Emergency Department Note ---
Disposition Clinical Impression: Port catheter in place Disposition: Still a Patient Forms: ED Satisfaction Letter, Work/School Release General Adult HPI - General Chief complaint: ED Abdominal Pain Stated complaint: ABD Pain "Port Hurts" Time Seen by Provider: 12/28/17 14:15 Source: patient Limitations: no limitations - History of Present Illness Pain Scale: 6 - Related Data Home Medications Medication Instructions Recorded Confirmed Tizanidine HCl [Zanaflex] 4 mg PO BID 01/15/16 12/11/17 Niacin [Niaspan] 1,000 mg PO DAILY 09/02/16 12/11/17 Montelukast [Singulair] 10 mg PO HS 07/25/17 12/11/17 Temazepam [Restoril] 30 mg PO HS PRN 07/25/17 12/11/17 Venlafaxine XR (24 HR) [Effexor Xr] 37.5 mg PO DAILY 07/25/17 12/11/17 BuPROPion XL (24 HR) [Wellbutrin 300 mg PO DAILY 08/20/17 12/11/17 Xl] Aripiprazole [Abilify] 20 mg PO DAILY 09/08/17 12/11/17 Cholecalciferol (D-3) [Vitamin D] 5,000 unit PO DAILY 09/08/17 12/11/17 Cyanocobalamin (B-12) [Vitamin B12] 1,000 mcg IM QMONTH 09/08/17 12/11/17 Ranitidine HCl [Zantac] 150 mg PO BID 09/08/17 12/11/17 Lidocaine/Prilocaine CREAM [Emla] 1 appl TP AD 12/11/17 12/11/17 Loratadine [Allergy Relief] 10 mg PO DAILY 12/11/17 12/11/17 Ondansetron [Zofran] 8 mg PO Q8H PRN 12/11/17 12/11/17 Promethazine [Phenergan] 25 mg RC Q12H PRN 12/11/17 12/11/17 Previous Rx's Medication Instructions Recorded Lipase/Protease/Amylase [Siv[place] 1 each PO QIDAC #120 capsule. 10/05/17 6,000 Units Capsule] Dicyclomine [Bentyl] 20 mg PO Q6H PRN #30 capsule 12/19/17 HYDROcodone/Acet 5/325 mg [[place] 1 tab PO Q6H PRN 3 Days #12 tab 12/19/17 5-325 mg] Omeprazole [PriLOSEC] 20 mg PO DAILY #28 cap 12/19/17 Oxycodone HCl 5 mg PO Q6H 3 Days #12 tablet 12/19/17 Sucralfate [Carafate] 1 gm PO QIDAC #40 tablet 12/19/17 Allergies Allergy/AdvReac Type Severity Reaction Status Date / Time acetaminophen [From Fioricet] Allergy Hives Verified 12/11/17 13:50 butalbital [From Fioricet] Allergy Hives Verified 12/11/17 13:50 caffeine [From Fioricet] Allergy Hives Verified 12/11/17 13:50 [place] Allergy Hives Verified 12/11/17 13:50 phenytoin [From Dilantin] Allergy Hives Verified 12/11/17 13:50 methocarbamol [From Robaxin] AdvReac Vomiting Verified 12/11/17 13:50 Past Medical History - Past Medical History Medical history: Reports: asthma, COPD, coronary artery disease, GERD, hyperlipidemia, myocardial infarction, renal disease, seizures, TIA, other Surgical history: Reports: , cholecystectomy, herniorrhaphy, hysterectomy, bariatric surgery (Gastric bypass 2014) Psychiatric history: Reports: anxiety, depression INFECTION CONTROL MANAGER history: Reports: no INFECTION CONTROL MANAGER history - Social History Smoking Status: Never smoker Smokeless Tobacco Status: No Alcohol use: Reports: none Drug use: Reports: none Physical Exam - General Limitations: no limitations General appearance: alert, in no apparent distress Course Vital Signs Temperature 97.9 F 12/28/17 14:12 Pulse Rate 103 12/28/17 14:12 Respiratory Rate 20 12/28/17 14:12 Blood Pressure 137/87 12/28/17 14:12 O2 Sat by Pulse Oximetry 98 12/28/17 14:12 Temperature 97.9 F 12/28/17 14:12 Pulse Rate 103 12/28/17 14:12 Respiratory Rate 20 12/28/17 14:12 Blood Pressure 137/87 12/28/17 14:12 O2 Sat by Pulse Oximetry 98 12/28/17 14:12 Oxygen Delivery Oxygen Delivery Room Air Attestation Statement - Attestation Attestation: I examined this patient and my medical decision-making was reviewed with the Resident Physician. I agree with the documented findings, disposition and treatment plan as described except to the extent set forth below. 52 year old female presnte to the ED [facility] complaints of pain and redness around her port. She has a hsitory of chronic abdominal pian and follws with GI. She states that her port was las taccess on Friday when they were exchanging out a catheter portion of her port. There is an indurated area and erythematous.. WE will do infectious workup and cT with IV contrast of the area to rule out abscess
[2017-12-28 14:50] LABS: Bilirubin,Urine Small (Negative); Blood,Urine Negative (Negative); Clarity,Urine Cloudy (Clear); Color,Urine Yellow (Yellow); Glucose,Urine (UA) Normal (Normal); Ketones,Urine Negative (Negative); Leukocyte Esterase,Urine Moderate (Negative); Nitrite,Urine Negative (Negative); PH,Urine 5.5 pH Units (5.0-8.0); Protein,Urine Negative (Neg-Trace); Specific Gravity,Urine 1.023 (1.010-1.025); Urobilinogen,Urine Normal (Normal)
[2017-12-28 14:53] LABS: Basophils # 0.1 K/mcL (0.0-0.2); Basophils % 0.7 %; Eosinophils # 0.1 K/mcL (0.0-0.6); Eosinophils % 1.3 %; Hematocrit 33.5 % (35.3-44.9); Hemoglobin 10.5 g/dL (11.5-15.4); Immature Granulocytes % 0.3 % (0-4); Lymphocytes # 1.9 K/mcL (0.6-4.6); Lymphocytes % 17.4 %; Mean Corpuscular HGB Conc 31.3 g/dL (31.6-35.5); Mean Corpuscular Hemoglobin 25.8 pg (28.0-33.3); Mean Corpuscular Volume 82.3 fL (83.0-100.0); Mean Platelet Volume 8.6 fL (9.4-12.4); Monocytes # 0.6 K/mcL (0.0-1.3); Neutrophils # 7.9 K/mcL (1.6-8.9); Platelet Count 449 K/mcL (140-400); Red Blood Count 4.07 M/mcL (3.82-4.97); Red Cell Distribution Width 16.7 % (11.5-14.5); Segmented Neutrophils % 74.3 %
[2017-12-28 14:53] LABS: Bacteria,Urine None Seen per hpf (None-Few); Hyaline Casts,Urine None Seen per lpf (None-Few); Squamous Epithelial Cell,Urine Many per lpf (None-Few); WBC,Urine TNTC per hpf (0-3)
[2017-12-28 15:23] LABS: Alanine Aminotransferase 25 Units/L (7-52); Albumin 4.5 g/dL (3.5-5.7); Albumin/Globulin Ratio 1.3 (1.1-2.2); Alkaline Phosphatase 110 Units/L (34-104); Aspartate Amino Transferase 25 Units/L (13-39); BUN/Creatinine Ratio 8 (6-26); Bilirubin,Total 0.4 mg/dL (0.3-1.0); Blood Urea Nitrogen 7 mg/dL (6-20); Calcium 9.2 mg/dL (8.6-10.3); Carbon Dioxide 27 mEq/L (23-29); Chloride 95 mEq/L (98-107); Globulin 3.4 g/dL (2.4-3.5); Glucose 89 mg/dL (70-105); Lipase 35 Units/L (11-82); Osmolality,Calculated 267 (280-300); Potassium 3.1 mEq/L (3.5-5.1); Sodium 130 mEq/L (136-145); Total Protein 7.9 g/dL (6.4-8.9); eGFR For African Americans > 60 (> 60); eGFR For Non-African Americans > 60 (> 60)
[2017-12-28] MEDS: 0.9 % Sodium Chloride 1,000 ML IVC SCH ×3 (15:51→22:07)
[2017-12-28] MEDS ORDERED: Piperacillin/Tazobactam 3.375 GM in 0.9 % Sodium Chloride Mini Bag 100 ML IVPB ONE (16:19)
[2017-12-28] MEDS ORDERED: Naloxone 0.4 MG/ML INJ IVP PRN (19:29)
[2017-12-28] MEDS ORDERED: 0.9 % Sodium Chloride 1,000 ML IVC ONE (19:58)
[2017-12-28] MEDS: tiZANidine 4 MG TABLET PO SCH (20:16)
[2017-12-28] MEDS: Ibuprofen 600 MG TABLET PO PRN (20:17)
[2017-12-28] MEDS ORDERED: Cyanocobalamin (B-12) 1,000 MCG/ML VIAL IM SCH (21:00)
--- NOTE | 2017-12-28 21:14 | Internal Med History&Physical ---
Date of Encounter: 12/28/17 Time of Encounter: 19:30 Internal Medicine - H&P: HPI Chief complaint: Left chest wall pain Admitted From: Emergency Dept Plans for Post Hospital Care: Home History of present illness: Ms. Astudillo is a 52 year old female with a PMH of COPD, CAD, GERD, HLD, prior [place] , prior seizures TIA, chronic pancreatitis s/p gatsric bypass in 2014 since pt had some intractable nausea and vomiting so she placed on IV Port @ Left subclavian region for IV antiemetics. Now she presented to ER with pain and swelling around the port area from last one week. Pt stated her pain and swelling seems to worsening from last 2-3 days. Denied any SOB. Does have fever with chills. Past Med Surg Social Fam HX - Past Medical History Medical history: asthma, COPD, coronary artery disease, GERD, hyperlipidemia, myocardial infarction, renal disease, seizures, TIA, other Psychiatric history: anxiety, depression - Past Surgical History Surgical History: , cholecystectomy, herniorrhaphy, hysterectomy, bariatric surgery - Social History Smoking Status: Never smoker Smokeless Tobacco Status: No Alcohol use: none Drug use: none - Family History Mother Family Member Ethnicity: Non- Living Status: Hx Family Cardiac Disorders: No Hx Family Respiratory Disorders: No Hx Family Cancer: Yes (Esophageal) Hx Family GI Disorders: No Hx Family Endocrine Disorder: No Hx Family Neuromuscular Disorders: No Hx Family Neurologic Disorders: No Hx Family HEENT Disorders: No Hx Family Autoimmune Disorders: No Father Family Member Ethnicity: Non- Living Status: Hx Family Cancer: Yes (Prostate) Hx Family Neurologic Disorders: Yes (Alzheimer's disease) Brother Family Member Ethnicity: Non- Living Status: Still Living Sister Name: Trudy Villasenor Age: 47 Family Member Ethnicity: Non- Living Status: Still Living Hx Family Cardiac Disorders: Yes (AK) Hx Family Cancer: Yes (Breast Ca) Internal Medicine - H&P: Meds Tizanidine HCl [Zanaflex] 4 mg PO BID 01/15/16 [History] Temazepam [Restoril] 30 mg PO HS PRN 07/25/17 [History] Venlafaxine XR (24 HR) [Effexor Xr] 37.5 mg PO DAILY 07/25/17 [History] BuPROPion XL (24 HR) [Wellbutrin Xl] 300 mg PO DAILY 08/20/17 [History] Aripiprazole [Abilify] 20 mg PO DAILY 09/08/17 [History] Cholecalciferol (D-3) [Vitamin D] 5,000 unit PO DAILY 09/08/17 [History] Cyanocobalamin (B-12) [Vitamin B12] 1,000 mcg IM QMONTH 09/08/17 [History] Lidocaine/Prilocaine CREAM [Emla] 1 appl TP AD 12/11/17 [History] Loratadine [Allergy Relief] 10 mg PO DAILY 12/11/17 [History] Ondansetron [Zofran] 8 mg PO Q8H PRN 12/11/17 [History] Dicyclomine [Bentyl] 20 mg PO Q6H PRN #30 capsule 12/19/17 [Rx] Oxycodone HCl 5 mg PO Q6H 3 Days #12 tablet 12/19/17 [Rx] Sucralfate [Carafate] 1 gm PO QIDAC #40 tablet 12/19/17 [Rx] Lipase/Protease/Amylase [[place] Dr 6,000 Units Capsule] 1 cap PO QIDAC 12/28/17 [ History] 3 Allergy/AdvReac Type Severity Reaction Status Date / Time acetaminophen [From Fioricet] Allergy Hives Verified 12/11/17 13:50 butalbital [From Fioricet] Allergy Hives Verified 12/11/17 13:50 caffeine [From Fioricet] Allergy Hives Verified 12/11/17 13:50 [place] Allergy Hives Verified 12/11/17 13:50 phenytoin [From Dilantin] Allergy Hives Verified 12/11/17 13:50 methocarbamol [From Robaxin] AdvReac Vomiting Verified 12/11/17 13:50 All Systems PM: A 10-system review of systems was performed and is negative for pertinent findings except as documented above in the HPI. Review of systems: All the systems are reviewed everything is benign except the systems and symptoms I mentioned in the history of present illness - Constitutional Vitals: Temp Pulse Resp BP Pulse Ox 102.5 F H 111 14 105/70 96 12/28/17 20:31 12/28/17 20:31 12/28/17 20:31 12/28/17 20:31 12/28/17 20:31 General appearance: Present: mild distress, A&O X 3, answers questions appropriately - Head Head exam: Present: atraumatic, normal inspection - Neck Neck exam general surgery: Present: supple - Respiratory Respiratory exam: Present: chest wall tenderness (Left chest wall region), decreased breath sounds. Absent: rales, respiratory distress, rhonchi, wheezes - Cardiovascular Cardiovascular exam: Present: +S1, +S2. Absent: tachycardia - GI/Abdominal GI/Abdominal exam: Present: diminished bowel sounds, normal bowel sounds, soft. Absent: rebound, rigid, tenderness - Extremities Exam Extremities exam: Absent: calf tenderness, pedal edema, tenderness - Back Exam Back exam: Absent: CVA tenderness (L), CVA tenderness (R) - Neurological Exam Neurological exam: Present: alert, oriented X3 - Psychiatric Psychiatric exam: Present: anxious - Skin Additional comments: moderate swelling and mild erythema noticed over Left subclavian port area. no active drainage or discharge noticed Internal Med - H&P Results - Labs CBC & Chem 7: 12/28/17 14:42 12/28/17 14:42 - Assessment and plan (1) Sepsis Current Visit: Yes Status: Acute Assessment and plan: admit the pt into Tele Pt does meet sepsis criteria with Fever 102.2, source of inf Cellulities around port area Blood cx drawn in the ER If pt's blood cx grown anything her IV port need to come out cont empirical abx Vanc and Zosyn continue aggressive IV hydration continue symptomatic and supportive care Qualifiers: Sepsis type: sepsis due to unspecified organism Qualified Code(s): A41.9 - Sepsis, unspecified organism (2) Cellulitis Current Visit: Yes Status: Acute Assessment and plan: Reviewed CT of the chest showed extensive cellulitis at the left subclavian port , involving anterior left chest wall cont empirical abx No need to remove port at this point of time Qualifiers: Site of cellulitis: trunk Site of cellulitis of trunk: chest wall Qualified Code(s): L03.313 - Cellulitis of chest wall (3) Lung nodule Current Visit: Yes Status: Acute Assessment and plan: noticed 0.6 cm size solid nodule in CHRISTOPHER and 0.6 cm x 0.4 cm size in RUL need out pt f/u CT of Chest in 3 months (4) Chronic diarrhea Current Visit: Yes Status: Acute Assessment and plan: she does c/o chronic diarrhea however her CT showed liquid stool through out the colon - ?? enterocolitis will check her stool C. Diff (5) Anxiety and depression Current Visit: No Status: Chronic Assessment and plan: resumed all home meds (6) GERD (gastroesophageal reflux disease) Current Visit: No Status: Chronic Assessment and plan: resumed home PPI + Carafate Qualifiers: Esophagitis presence: esophagitis presence not specified Qualified Code(s) : K21.9 - Gastro-esophageal reflux disease without esophagitis - Time Spent With Patient Total time spent is greater than 50% in coordination of care (as documented) at patient's floor/unit and/or counseling patient:
[2017-12-28] MEDS: Sucralfate 1 GM TABLET PO SCH (22:06)
[2017-12-28] MEDS: Lactobacillus 1 EACH CAP.SPRINK PO SCH (23:39)
[2017-12-28] MEDS: Temazepam 15 MG CAPSULE PO PRN (23:39)
[2017-12-28] MEDS: Vancomycin Oral Soln 250 MG/5 ML UDC PO SCH (23:40)
[2017-12-28] MEDS: Piperacillin/Tazobactam 3.375 GM in 0.9 % Sodium Chloride Mini Bag 100 ML IVPB SCH (23:40)
[2017-12-29] MEDS: Ondansetron 4 MG/2 ML VIAL IVP PRN ×4 (03:15→21:08)
[2017-12-29 03:51] LABS: Acinetobacter baumannii by PCR Not Detected (Not Detect); Enterococcus by PCR Not Detected (Not Detect); Streptococcus agalactiae(B)PCR Not Detected (Not Detect); Streptococcus by PCR Not Detected (Not Detect); Streptococcus pneumoniae PCR Not Detected (Not Detect); Streptococcus pyogenes (A) PCR Not Detected (Not Detect); blaKPC Carbapenem-Resist Gene Not Detected (Not Detect); mecA Methicillin-Resist Gene Not Detected (Not Detect); vanA/B Vancomycin-Resist Genes Not Detected (Not Detect)
[2017-12-29 03:52] LABS: Candida albicans by PCR Not Detected (Not Detect); Candida glabrata by PCR Not Detected (Not Detect); Candida krusei by PCR Not Detected (Not Detect); Candida parapsilosis by PCR Not Detected (Not Detect); Candida tropicalis by PCR Not Detected (Not Detect); Escherichia coli by PCR Not Detected (Not Detect); Klebsiella oxytoca by PCR ***DETECTED*** (Not Detect); Klebsiella pneumoniae by PCR Not Detected (Not Detect); Pseudomonas aeruginosa by PCR Not Detected (Not Detect); Serratia marcescens by PCR Not Detected (Not Detect); Staphylococcus aureus by PCR ***DETECTED*** (Not Detect)
[2017-12-29 05:11] LABS: Basophils # 0.1 K/mcL (0.0-0.2); Basophils % 0.6 %; Eosinophils # 0.1 K/mcL (0.0-0.6); Eosinophils % 1.2 %; Hematocrit 28.4 % (35.3-44.9); Immature Granulocytes % 0.3 % (0-4); Lymphocytes # 1.4 K/mcL (0.6-4.6); Lymphocytes % 16.2 %; Mean Corpuscular HGB Conc 31.7 g/dL (31.6-35.5); Mean Corpuscular Hemoglobin 25.8 pg (28.0-33.3); Mean Corpuscular Volume 81.4 fL (83.0-100.0); Mean Platelet Volume 9.2 fL (9.4-12.4); Monocytes # 0.6 K/mcL (0.0-1.3); Neutrophils # 6.4 K/mcL (1.6-8.9); Platelet Count 374 K/mcL (140-400); Red Blood Count 3.49 M/mcL (3.82-4.97); Segmented Neutrophils % 74.7 %
[2017-12-29 05:23] LABS: Alanine Aminotransferase 19 Units/L (7-52); Albumin 3.3 g/dL (3.5-5.7); Albumin/Globulin Ratio 1.1 (1.1-2.2); Alkaline Phosphatase 89 Units/L (34-104); Aspartate Amino Transferase 20 Units/L (13-39); BUN/Creatinine Ratio 8 (6-26); Bilirubin,Total 0.4 mg/dL (0.3-1.0); Blood Urea Nitrogen 6 mg/dL (6-20); Calcium 8.2 mg/dL (8.6-10.3); Carbon Dioxide 30 mEq/L (23-29); Chloride 106 mEq/L (98-107); Chol/HDL Ratio 3.3 (0-4.9); Cholesterol 127 mg/dL (< 200); Glucose 88 mg/dL (70-105); HDL Cholesterol 39 mg/dL (40-59); LDL Cholesterol,Calculated 74 mg/dL (0-99); Osmolality,Calculated 281 (280-300); Potassium 3.6 mEq/L (3.5-5.1); Sodium 137 mEq/L (136-145); Total Protein 6.3 g/dL (6.4-8.9); Triglycerides 69 mg/dL (< 150); eGFR For African Americans > 60 (> 60); eGFR For Non-African Americans > 60 (> 60)
[2017-12-29] MEDS: *HR* Enoxaparin 40 MG/0.4 ML SYRINGE SQ SCH (06:02)
[2017-12-29] MEDS: *HR* OxyCODONE Immed Rel 5 MG TABLET PO PRN ×3 (07:45→21:08)
[2017-12-29] MEDS: 0.9 % Sodium Chloride 1,000 ML IVC SCH (07:45)
[2017-12-29] MEDS: Sucralfate 1 GM TABLET PO SCH ×4 (07:47→21:08)
[2017-12-29] MEDS: Piperacillin/Tazobactam 3.375 GM in 0.9 % Sodium Chloride Mini Bag 100 ML IVPB SCH ×2 (07:48→16:41)
[2017-12-29] MEDS: Loratadine 10 MG TABLET PO SCH (07:49)
[2017-12-29] MEDS: ARIPiprazole 10 MG TABLET PO SCH (07:49)
[2017-12-29] MEDS: Lactobacillus 1 EACH CAP.SPRINK PO SCH ×2 (07:49→21:08)
[2017-12-29] MEDS: Venlafaxine XR (24 HR) 37.5 MG CAP.ER.24H PO SCH (07:49)
[2017-12-29] MEDS: Cholecalciferol (D-3) 1,000 UNIT TABLET PO SCH (07:50)
[2017-12-29] MEDS: BuPROPion XL (24 HR) 150 MG TABLET PO SCH (07:50)
[2017-12-29] MEDS: Vancomycin Oral Soln 250 MG/5 ML UDC PO SCH ×4 (07:50→21:07)
[2017-12-29] MEDS: tiZANidine 4 MG TABLET PO SCH ×2 (07:50→21:08)
[2017-12-29] MEDS: Heparin 1,000 UNITS/500 mL 500 ML ONE ×2 (09:35→09:40)
[2017-12-29 09:52] LABS: Enterococcus by PCR Not Detected (Not Detect); blaKPC Carbapenem-Resist Gene Not Detected (Not Detect); mecA Methicillin-Resist Gene Not Detected (Not Detect); vanA/B Vancomycin-Resist Genes Not Detected (Not Detect)
[2017-12-29 09:53] LABS: Acinetobacter baumannii by PCR Not Detected (Not Detect); Candida albicans by PCR Not Detected (Not Detect); Candida glabrata by PCR Not Detected (Not Detect); Candida krusei by PCR Not Detected (Not Detect); Candida parapsilosis by PCR Not Detected (Not Detect); Candida tropicalis by PCR Not Detected (Not Detect); Escherichia coli by PCR Not Detected (Not Detect); Klebsiella oxytoca by PCR Not Detected (Not Detect); Klebsiella pneumoniae by PCR Not Detected (Not Detect); Pseudomonas aeruginosa by PCR Not Detected (Not Detect); Serratia marcescens by PCR Not Detected (Not Detect); Staphylococcus aureus by PCR ***DETECTED*** (Not Detect); Streptococcus agalactiae(B)PCR Not Detected (Not Detect); Streptococcus by PCR Not Detected (Not Detect); Streptococcus pneumoniae PCR Not Detected (Not Detect); Streptococcus pyogenes (A) PCR Not Detected (Not Detect)
--- NOTE | 2017-12-29 11:44 | Internal Med Progress Note ---
<Didier Sol T - Last Filed: 12/29/17 15:40> Date of Encounter: 12/29/17 - Assessment and plan (1) GERD (gastroesophageal reflux disease) Current Visit: No Status: Chronic (2) Anxiety and depression Current Visit: No Status: Chronic (3) Cellulitis Current Visit: Yes Status: Acute (4) Sepsis Current Visit: Yes Status: Acute (5) Chronic diarrhea Current Visit: Yes Status: Acute (6) Lung nodule Current Visit: Yes Status: Acute - Time Spent With Patient Total time spent is greater than 50% in coordination of care (as documented) at patient's floor/unit and/or counseling patient: - Constitutional Vitals: Temp Pulse Resp BP Pulse Ox 98.5 F 110 18 111/73 97 12/29/17 14:47 12/29/17 14:47 12/29/17 14:47 12/29/17 14:47 12/29/17 14:47 Internal Medicine: Result - Labs CBC & Chem 7: 12/29/17 04:41 12/29/17 04:41 Labs: Short CBC 12/29/17 Range/Units 04:41 WBC 8.6 (4.3-11.1) K/mcL Hgb 9.0 L D (11.5-15.4) g/dL Hct 28.4 L (35.3-44.9) % Plt Count 374 (140-400) K/mcL Neutrophils # 6.4 (1.6-8.9) K/mcL BMP 12/29/17 04:41 Sodium 137 Potassium 3.6 Chloride 106 Carbon Dioxide 30 H BUN 6 Creatinine 0.75 Glucose 88 Calcium 8.2 L Liver Function 12/29/17 Range/Units 04:41 Total Bilirubin 0.4 (0.3-1.0) mg/dL AST 20 (13-39) Units/L ALT 19 (7-52) Units/L Alkaline Phosphatase 89 (34-104) Units/L Albumin 3.3 L (3.5-5.7) g/dL - Impressions Impressions Tunnelled Catheter Removal 12/29/17 00:00 IMPRESSION: Successful subcutaneous Port-A-Cath removal D/ / 12/29/2017 14:48:21 Pilar Mckeon MD / Valeria Duque Interpreting Provider: Pilar Mckeon MD Echocardiogram 12/29/17 08:07 Impressions: LVEF 65%. Normal LV chamber size, wall thickness and function. Mild left ventricular diastolic dysfunction. Normal right ventricular structure and function. Mild tricuspid regurgitation. Mild pulmonary hypertension. Estimated RVSP is 37 mmHg. No evidence of endocarditis visualized. Left Ventricular Wall Motion: Rest Echo Findings All wall segments showed normal motion. Findings: Study Quality * Technically adequate exam. ECG Findings * Normal sinus rhythm. Left Ventricle * LVEF 65%. * Normal LV chamber size, wall thickness and function. * Mild left ventricular diastolic dysfunction. Right Ventricle * Normal right ventricular structure and function. Left Atrium * Mildly dilated left atrium. Right Atrium * Mildly dilated right atrium. Interatrial Septum * No evidence of PFO by color Doppler. Aortic Valve * Aortic valve not well visualized. * No aortic regurgitation. * No aortic stenosis. Mitral Valve * Normal mitral valve structure and function. * No mitral regurgitation. * No mitral stenosis. Tricuspid Valve * Normal tricuspid valve structure. * Mild tricuspid regurgitation. * Mild pulmonary hypertension. * Estimated RVSP is 37 mmHg. * Estimated RA pressure is 5 mmHg. Pulmonic Valve * Normal pulmonic valve structure and function. * No pulmonic regurgitation. Aorta * Normally sized aortic root. Pericardium * The pericardium appears normal. IVC * Normal IVC dimensions and inspiratory collapse. Pulmonary Artery * Normal visualized portions of the main pulmonary artery. Consult Discharge Plan - Plan Referrals: Niecy Albarran [Primary Care Provider] - - Attending Attestation Seen and examined independently at the bedside 52 F admitted 12/28 with suspected IE with septic emboli, Staph/Klebsiella/ Enterococcal bacteremia, Sepsis due to infected port. No new complains Exam significant for Left chest wasll crusty discharge surrounding her port, as well as hyperemia and purulent discharge from the port. Chest is CTAB, abdomen is soft and not tender, extremities with no edema. Labs and Imaging reviewed: Chronic anemia, no leukocytosis Her CT scan shows a lung nodule suspected to be a septic emboli. Plan: If TTE is negative, obtain ABNER Port removed by IR this a.m, . On Vanco and Zosyn Awaiting TTE/ABNER, Infectious disease eval, repeat cultures. Continue current antibiotics Rest of details is as in the resident physician's documentation <Mary Rodríguez - Last Filed: 12/29/17 17:07> Date of Encounter: 12/29/17 Time of Encounter: 10:15 - Assessment and plan (1) Sepsis Current Visit: Yes Status: Acute Assessment and plan: Sepsis secondary to infected port. Fever, tachycardic. Chest CT: cellulitis at catheter left side, subcutaneous port anterior left chest wall, left axilla, left supraclavicular fossa. New nodules 0.6 x 0.4 right upper lobe. lactic acid 1.1 TTE: EF 65%, mild diastolic dysfunction, mild TR, mild pulmonary hypertension. no endocarditiis. Blood cultures: positive for GNR, GPC, staph aureus, klebsiella Has received multiple IVF boluses -stop zosyn and levaquin -start nafcillin -ID consulted -NPO midnight -ABNER tomorrow Qualifiers: Sepsis type: sepsis due to unspecified organism Qualified Code(s): A41.9 - Sepsis, unspecified organism (2) Infected venous access port Current Visit: Yes Status: Acute Assessment and plan: Infected port that was removed by IR today. -cultures ordered Qualifiers: Encounter type: initial encounter Qualified Code(s): T80.219A - Unspecified infection due to central venous catheter, initial encounter (3) C. difficile diarrhea Current Visit: Yes Status: Acute Assessment and plan: Positive for C.diff -oral vancomycin (4) Chronic pancreatitis Current Visit: Yes Status: Acute Assessment and plan: history of gastric bypass. Since then has had chronic pancreatitis for which she gets creon Qualifiers: Pancreatitis type: unspecified pancreatitis type Qualified Code(s): K86.1 - Other chronic pancreatitis (5) Lung nodule Current Visit: Yes Status: Acute Assessment and plan: Chest CT: New nodules 0.6 x 0.4 right upper lobe. (6) Anxiety and depression Current Visit: No Status: Chronic Assessment and plan: continue home medications - Time Spent With Patient Total time spent is greater than 50% in coordination of care (as documented) at patient's floor/unit and/or counseling patient: - Subjective Interval history: Patient seen and examined at bedside. Patient reports her left anterior chest where the port is is sore to palpation. She cannot lift arm completely up. - Constitutional Vitals: Temp Pulse Resp BP Pulse Ox 98.9 F 93 18 100/66 97 12/29/17 10:44 12/29/17 10:44 12/29/17 10:44 12/29/17 10:44 12/29/17 10:44 General appearance: Present: A&O X 3, no acute distress, answers questions appropriately - Head Head exam: Present: atraumatic, normocephalic - Eye Eye exam: Present: normal appearance - Respiratory Respiratory exam: Present: CTAB. Absent: rales, wheezes - Cardiovascular Cardiovascular exam: Present: RRR, +S1, +S2 - GI/Abdominal GI/Abdominal exam: Present: normal bowel sounds, soft. Absent: guarding, tenderness - Extremities Exam Extremities exam: Absent: tenderness - Expanded Upper Extremities Exam Upper Arm exam: Present: swelling, tenderness. Absent: full ROM (decreaesed left upper extremity ROM) - Psychiatric Psychiatric exam: Present: normal affect, normal mood - Skin Skin exam: Present: dry, erythema (tender), intact Internal Medicine: Result - Labs CBC & Chem 7: 12/29/17 04:41 12/29/17 04:41 Labs: Short CBC 12/29/17 Range/Units 04:41 WBC 8.6 (4.3-11.1) K/mcL Hgb 9.0 L D (11.5-15.4) g/dL Hct 28.4 L (35.3-44.9) % Plt Count 374 (140-400) K/mcL Neutrophils # 6.4 (1.6-8.9) K/mcL BMP 12/29/17 04:41 Sodium 137 Potassium 3.6 Chloride 106 Carbon Dioxide 30 H BUN 6 Creatinine 0.75 Glucose 88 Calcium 8.2 L Liver Function 12/29/17 Range/Units 04:41 Total Bilirubin 0.4 (0.3-1.0) mg/dL AST 20 (13-39) Units/L ALT 19 (7-52) Units/L Alkaline Phosphatase 89 (34-104) Units/L Albumin 3.3 L (3.5-5.7) g/dL
[2017-12-29] MEDS: Ibuprofen 600 MG TABLET PO PRN (11:55)
--- NOTE | 2017-12-29 14:10 | IR Procedure Note ---
Date of procedure: 12/29/17 Consent Obtained: Written consent Timeout: Correct patient and procedure verified, Correct site verified, Time out performed, Skin prep completed Indications: infected port Procedure Performed: port removal Was there an phlebotomy lab assistant present: No Site/Technique: lt chest Results/Findings: adequate removal, packed with iodoform gauze Estimated blood loss (cc): 6 Complications: None; Tolerated procedure well Post Procedure Treatment Plan: wound care Specimen: none
--- NOTE | 2017-12-29 14:54 | Infectious Disease Consult ---
Date of Encounter: 12/30/17 Time of Encounter: 14:26 Assessment and Plan (1) Sepsis Status: Acute Assessment and plan: Upon presentation, patient had comes a fevers, chills. she had fever of 102.7, pulse 133, respirations 14, blood pressure 90s/50s. Source of infection likely secondary to MSSA and klebsiella from infected port, which was removed 12/29/17. Chest CT on 12/28/17 showed extensive stranding consistent with cellulitis associated with the catheter of the left subclavian port, involving anterior chest wall, left interpectoral space, left axilla, and left supraclavicular fossa. There were no findings associated with abscess or DVT. Blood cultures from 12/28/17 positive for gram-negative aris, gram-negative enterobacteraceae group, klebsiella oxytoca, gram positive cocci, staph species. Repeat blood cultures from 12/29/17 her pending Cr clearance: 97 Plan: TTE pending. Patient will need ABNER prior to discharge. oral vancomycin day 2 Received 2 days zosyn- discontinued 12/29 nafcillin day 1 for MSSA Levaquin day 1 for klebsiella oxytoca await for final results from original cultures and repeat cultures Qualifiers: Sepsis type: sepsis due to unspecified organism Qualified Code(s): A41.9 - Sepsis, unspecified organism (2) Bacteremia Status: Acute Assessment and plan: bacteremia secondary to klebsiella oxytoca and MSSA plan as above (3) Infected venous access port Status: Acute Assessment and plan: Patient has sepsis secondary to infected left subclavian port that was placed about 6-7 months ago at [facility] so she can get Zofran IV fluids port was removed by IR 12/29/17 Qualifiers: Encounter type: initial encounter Qualified Code(s): T80.219A - Unspecified infection due to central venous catheter, initial encounter (4) C. difficile diarrhea Status: Acute Assessment and plan: Patient has been having diarrhea for the past 2-3 weeks urology positive for C diff toxin Plan: continue oral vancomycin day 2 (5) Gastritis Status: Acute Assessment and plan: Diagnosed with gastritis on EGD from last admission. Continue care if they Qualifiers: Gastritis type: unspecified gastritis Chronicity: chronic Gastritis bleeding: without bleeding Qualified Code(s): K29.50 - Unspecified chronic gastritis without bleeding (6) CAD (coronary artery disease) Status: Chronic Qualifiers: Coronary Disease-Associated Artery/Lesion type: [place] artery [place] vs. transplanted heart: [place] heart Associated angina: without angina Qualified Code(s): I25.10 - Atherosclerotic heart disease of [place] coronary artery without angina pectoris (7) CKD (chronic kidney disease) Status: Chronic Assessment and plan: Sees Dr. García outpatient Qualifiers: Chronic kidney disease stage: stage 2 (mild) Qualified Code(s): N18.2 - Chronic kidney disease, stage 2 (mild) (8) Chronic pancreatitis Status: Acute Assessment and plan: brent beltran, management per primary service. Qualifiers: Pancreatitis type: unspecified pancreatitis type Qualified Code(s): K86.1 - Other chronic pancreatitis (9) Lung nodule Status: Acute Assessment and plan: CT of the chest showed .6 cmx .6 cm solid nodule in the left upper lobe and new groundglass nodules measuring .6cm.x4cm in the right upper lobe with possible partial cavitation. outpatient follow up recommended. Infectious Disease HPI - Data of Consult Patient: new to practice Consult date: 12/29/17 Requesting Physician: Didier Sol MD Primary Care Provider: Niecy Albarran - Consult Narrative Reason for consult: infected port. blood culture positive GNR, GPC, staph, klebsiella. CT cruz History of present illness: Ms. Astudillo is a 52 year old female who presented to [facility] on 12/28/17 for pain and swelling around her port, which was placed 6-7 months ago in the left subclavian region for IV anti-emetics and IV fluids or her malabsorption issues. The pain and swelling has been worsening for the last 2-3 days. She also was having symptoms of fevers and chills. She has a significant past medical history of COPD, CAD, GRD, HLD, prior [place], prior seizures, TIA, CKD, chronic pancreatitis, hx of [place] bypass in 2014. Patient was recently hospitalized and was discharged on 12/19/17 after being treated for acute pancreatitis. She was treated with IV fluids, treated for pain control. At that time she had MRCP done to rule out malignancy, and the biopsy was negative for malignancy. She also had EGD done showing acute gastritis for which she was treated with care fate and PPI. prior to this, she has had multiple hospitalizations due to acute on chronic pancreatitis. On 12/28/17, patient presented to the ED with symptoms of pain and swelling around her left subclavian port site that began on day of discharge of her last hospitalization on 12/19/17. Patient states that prior to discharge, the nurses were doing a lot of manipulation to the port. Since then, she started to have erythema and swelling combined with pain at the port site. She also had pain with movement of her left upper extremity. The pain and swelling had since been worsening, along with symptoms of fevers and chills, so she presented to the emergency room on 12/28/17. He should also complains of intermittent diarrhea about 3-4 times are day that has been going on for the past 2-3 weeks. After presentation to the emergency department, patient had fever of 102.7, pulse 133, respirations 14, blood pressure 90s/50s. she was saturating at 99% on rooom air. Patient did not have leukocytosis upon presentation. She had hemoglobin of 10.5, platelet count of 449, segmented neutrophils of 74.3%. Presentation, she was also hyponatremic and hypokalemic and lactic acid level of 1.1. Urinalysis was contaminated, and there was no concern for infection. CT of the chest showed extensive stranding consistent with cellulitis associated with the catheter of the left subclavian port involving the anterior left chest wall, left inter-pectoral space, left axilla, and left supraclavicular fossa. There were no findings associated with DVT. There was also a .6 cm X .6 cm solid nodule in the left upper lobe. She was admitted to the [facility] for treatment and workup of her sepsis. Source of infection was likely secondary to an infected port. Her nasal screen was positive for MRSA. Serology was positive for staph aureus, C.Diff. Blood cultures from 12/28/17 grew Gram negative Aris, gram-negative Enterobacteraciae group, Klebsiella oxytoca, gram positive cocci, staph aureus. Patient had infected port removed today, on 12/29/17. Her max temperature overnight was 100.9. Today, she denies subjective fevers, reports chills. She denies chest pain or shortness of breath. She denies nausea, vomiting, diarrhea today. CC: Didier Sol MD Past Med Surg Social Fam HX - Past Medical History Medical history: asthma, COPD, coronary artery disease, GERD, hyperlipidemia, myocardial infarction, renal disease, seizures, TIA, other Psychiatric history: anxiety, depression - Past Surgical History Surgical History: , cholecystectomy, herniorrhaphy, hysterectomy, bariatric surgery - Social History Smoking Status: Never smoker Smokeless Tobacco Status: No Alcohol use: none Drug use: none - Family History Mother Family Member Ethnicity: Non- Living Status: Hx Family Cardiac Disorders: No Hx Family Respiratory Disorders: No Hx Family Cancer: Yes (Esophageal) Hx Family GI Disorders: No Hx Family Endocrine Disorder: No Hx Family Neuromuscular Disorders: No Hx Family Neurologic Disorders: No Hx Family HEENT Disorders: No Hx Family Autoimmune Disorders: No Father Family Member Ethnicity: Non- Living Status: Hx Family Cancer: Yes (Prostate) Hx Family Neurologic Disorders: Yes (Alzheimer's disease) Brother Family Member Ethnicity: Non- Living Status: Still Living Sister Name: Trudy Villasenor Age: 47 Family Member Ethnicity: Non- Living Status: Still Living Hx Family Cardiac Disorders: Yes ([place]) Hx Family Cancer: Yes (Breast Ca) Infectious Disease-CN:Meds Tizanidine HCl [Zanaflex] 4 mg PO BID 01/15/16 [History] Temazepam [Restoril] 30 mg PO HS PRN 07/25/17 [History] Venlafaxine XR (24 HR) [Effexor Xr] 37.5 mg PO DAILY 07/25/17 [History] BuPROPion XL (24 HR) [Wellbutrin Xl] 300 mg PO DAILY 08/20/17 [History] Aripiprazole [Abilify] 20 mg PO DAILY 09/08/17 [History] Cholecalciferol (D-3) [Vitamin D] 5,000 unit PO DAILY 09/08/17 [History] Cyanocobalamin (B-12) [Vitamin B12] 1,000 mcg IM QMONTH 09/08/17 [History] Lidocaine/Prilocaine CREAM [Emla] 1 appl TP AD 12/11/17 [History] Loratadine [Allergy Relief] 10 mg PO DAILY 12/11/17 [History] Ondansetron [Zofran] 8 mg PO Q8H PRN 12/11/17 [History] Dicyclomine [Bentyl] 20 mg PO Q6H PRN #30 capsule 12/19/17 [Rx] Oxycodone HCl 5 mg PO Q6H 3 Days #12 tablet 12/19/17 [Rx] Sucralfate [Carafate] 1 gm PO QIDAC #40 tablet 12/19/17 [Rx] Lipase/Protease/Amylase [Sivakumar Hopkins 6,000 Units Capsule] 1 cap PO QIDAC 12/28/17 [ History] 3 Allergy/AdvReac Type Severity Reaction Status Date / Time acetaminophen [From Fioricet] Allergy Hives Verified 12/11/17 13:50 butalbital [From Fioricet] Allergy Hives Verified 12/11/17 13:50 caffeine [From Fioricet] Allergy Hives Verified 12/11/17 13:50 [place] Allergy Hives Verified 12/11/17 13:50 phenytoin [From Dilantin] Allergy Hives Verified 12/11/17 13:50 methocarbamol [From Robaxin] AdvReac Vomiting Verified 12/11/17 13:50 All systems: reviewed and no additional remarkable complaints except as stated Exam - Constitutional Vitals: Temp Pulse Resp BP Pulse Ox 98.9 F 93 18 100/66 97 12/29/17 10:44 12/29/17 10:44 12/29/17 10:44 12/29/17 10:44 12/29/17 10:44 General appearance: cooperative, no acute distress, obese - Head Head exam: Present: atraumatic, normocephalic - Respiratory Respiratory exam: Present: CTAB Additional comments: Erythema present on the left side of the anterior chest wall. - Cardiovascular Cardiovascular exam: Present: RRR, +S1, +S2 Additional comments: No murmurs appreciated. - GI/Abdominal GI/Abdominal exam: Present: hyperactive bowel sounds, soft. Absent: distended, tenderness - Extremities Exam Extremities exam: Absent: calf tenderness, pedal edema, tenderness - Neurological Exam Neurological exam: Present: alert, oriented X3, no focal deficits - Psychiatric Psychiatric exam: Present: normal affect, normal mood Infectious Disease CN: Results - Labs CBC & Chem 7: 12/30/17 05:10 12/30/17 05:10 Serology: Serology 12/28/17 12/28/17 Range/Units 23:45 21:45 Nasal Screen MRSA (PCR) Positive A (Negative) Stl C. diff Tox B Gene Positive (Negative) Consult Discharge Plan - Plan Referrals: Niecy Albarran [Primary Care Provider] - - Attending Attestation I examined this patient and my medical decision-making was reviewed with the Resident Physician. I agree with the documented findings, disposition and treatment plan as described except to the extent set forth below. This is an addendum to original report dictated by resident physician, please refer to residents note for full detail. Patient is a 52-year-old woman with has an extensive past medical history mentioned below including COPD, coronary artery disease, GERD, hyperlipidemia, history of from a prior [place] in the past, history of seizure disorder, TIAs in the past and chronic pancreatitis with history of gastric bypass surgery back in 2014 had some residual intractable nausea and vomiting so she had a port placed at the left subclavian. Patient also was recently admitted from December 11 through December 19 and in September of this year with acute on chronic pancreatitis. Currently patient appears very comfortable does not appear toxic pleasant eating dinner states that she had 2 bowel movements today. States that she is nauseated but he gave her Zofran before she ate and she is tolerating oral intake. Assessment and plan: Sepsis Bacteremia with MSSA and klebsiella oxytoca Infected venous access port C. difficile diarrhea Recommendation: Continue oral vancomycinduration of treatment 10-14 days Start nafcillin 12 g daily duration of treatment depends on the ABNER results but likely 14 days Started levofloxacin 500 daily duration of treatment 10-14 days Await susceptibilities to finalize Repeat blood cultures 2 Patient will need a ABNER prior to discharge
[2017-12-29] MEDS: Levofloxacin 500 MG/100 ML 500 MG/100 ML BAG IVPB SCH (17:23)
[2017-12-29] MEDS: Nafcillin 3,000 MG in D5% in Water 100 ML IVPB SCH (19:07)
[2017-12-29] MEDS: Temazepam 15 MG CAPSULE PO PRN (21:14)
[2017-12-30] MEDS: Nafcillin 3,000 MG in D5% in Water 100 ML IVPB SCH ×5 (00:38→23:45)
[2017-12-30] MEDS: *HR* OxyCODONE Immed Rel 5 MG TABLET PO PRN ×3 (04:20→16:09)
[2017-12-30] MEDS: Ondansetron 4 MG/2 ML VIAL IVP PRN ×4 (04:21→20:35)
[2017-12-30] MEDS: *HR* Enoxaparin 40 MG/0.4 ML SYRINGE SQ SCH (05:00)
[2017-12-30 05:35] LABS: Basophils % 0.4 %; Eosinophils # 0.1 K/mcL (0.0-0.6); Eosinophils % 1.9 %; Hematocrit 25.9 % (35.3-44.9); Hemoglobin 8.3 g/dL (11.5-15.4); Immature Granulocytes % 0.3 % (0-4); Lymphocytes # 1.1 K/mcL (0.6-4.6); Lymphocytes % 16.2 %; Mean Corpuscular Hemoglobin 25.8 pg (28.0-33.3); Mean Corpuscular Volume 80.4 fL (83.0-100.0); Mean Platelet Volume 8.9 fL (9.4-12.4); Monocytes # 0.4 K/mcL (0.0-1.3); Monocytes % 5.5 %; Neutrophils # 5.1 K/mcL (1.6-8.9); Platelet Count 365 K/mcL (140-400); Red Blood Count 3.22 M/mcL (3.82-4.97); Segmented Neutrophils % 75.7 %
[2017-12-30 05:44] LABS: BUN/Creatinine Ratio 7 (6-26); Blood Urea Nitrogen 4 mg/dL (6-20); Calcium 8.6 mg/dL (8.6-10.3); Carbon Dioxide 25 mEq/L (23-29); Chloride 107 mEq/L (98-107); Glucose 106 mg/dL (70-105); Osmolality,Calculated 283 (280-300); Potassium 3.5 mEq/L (3.5-5.1); Sodium 138 mEq/L (136-145); eGFR For African Americans > 60 (> 60); eGFR For Non-African Americans > 60 (> 60)
--- NOTE | 2017-12-30 08:00 | Internal Med Progress Note ---
<aMry Rodríguez - Last Filed: 12/30/17 14:04> Date of Encounter: 12/30/17 Time of Encounter: 07:45 - Assessment and plan (1) Sepsis Current Visit: Yes Status: Acute Assessment and plan: Sepsis upon admission secondary to infected port, Fever 102.7, tachycardic 133. WBC 6.7 (8.6) lactic acid 1.[address]: cellulitis at catheter left side, subcutaneous port anterior left chest wall, left axilla, left supraclavicular fossa. New nodules 0.6 x 0.4 right upper lobe. TTE: EF 65%, mild diastolic dysfunction, mild TR, mild pulmonary hypertension. no endocarditiis. 12/28/2017 Blood cultures: positive for GNR, GPC, MSSA, klebsiella 12/29/2017 Port system culture: GNR Has received multiple IVF boluses -levaquin day 2 -nafcillin day 2 -ID consulted, recommendations appreciated -NPO -ABNER pending Qualifiers: Sepsis type: sepsis due to unspecified organism Qualified Code(s): A41.9 - Sepsis, unspecified organism (2) Infected venous access port Current Visit: Yes Status: Acute Assessment and plan: Infected port that was removed by IR today. She has port because after gastric bypass surgery she had abdominal pain and nausea for which she gets zofran through port. -12/29/2017 Port culture: GNR -see plan above Qualifiers: Encounter type: initial encounter Qualified Code(s): T80.219A - Unspecified infection due to central venous catheter, initial encounter (3) Bacteremia Current Visit: Yes Status: Acute Assessment and plan: Blood cultures: positive for GNR, GPC, staph aureus, klebsiella -see plan above (4) C. difficile diarrhea Current Visit: Yes Status: Acute Assessment and plan: Positive for C.diff She reported having diarrhea for months, when she was admitted 2 weeks ago she tested negative for C.diff. -oral vancomycin day 3 (5) Chronic pancreatitis Current Visit: Yes Status: Acute Assessment and plan: history of gastric bypass. Since then has had chronic pancreatitis for which she gets creo Qualifiers: Pancreatitis type: unspecified pancreatitis type Qualified Code(s): K86.1 - Other chronic pancreatitis (6) Lung nodule Current Visit: Yes Status: Acute Assessment and plan: Chest CT: New nodules 0.6 x 0.4 right upper lobe. (7) Anxiety and depression Current Visit: No Status: Chronic Assessment and plan: continue home medications (8) GERD (gastroesophageal reflux disease) Current Visit: No Status: Chronic Assessment and plan: GERD. continue omeprazole Qualifiers: Esophagitis presence: esophagitis presence not specified Qualified Code(s) : K21.9 - Gastro-esophageal reflux disease without esophagitis (9) DVT prophylaxis Current Visit: No Status: Acute Assessment and plan: lovenox sq - Time Spent With Patient Total time spent is greater than 50% in coordination of care (as documented) at patient's floor/unit and/or counseling patient: - Subjective Interval history: Patient seen and examined at bedside. Patient denies fever, chills, abdominal pain. Chest is loop tender to palpation. She has not had diarrhea today. - Constitutional Vitals: Temp Pulse Resp BP Pulse Ox 98 F 91 14 130/86 97 12/30/17 06:59 12/30/17 06:59 12/30/17 06:59 12/30/17 06:59 12/30/17 06:59 General appearance: Present: A&O X 3, no acute distress, answers questions appropriately Exam: Gen.: Vitals noted. No acute distress. AAOx3 HEENT: oropharynx clear, Normocephalic, atraumatic Neck: Supple. No adenopathy. Cardiac: RRR, no murmur, +S1/S2 Pulmonary: CTA bilaterally, no wheezes, rales or rhonchi, equal chest expansion Abdomen: soft, nontender, Bowel sounds noted, no guarding MSK: tender to left anterior chest, decreased range of motion left arm, no joint swelling noted Extremities: no BLE edema, nontender calf, Neuro: A&Ox3, moves all extremities, no focal deficits Psych: Appropriate mood and behavior Internal Medicine: Result - Labs CBC & Chem 7: 12/30/17 05:10 12/30/17 05:10 Labs: Short CBC 12/30/17 Range/Units 05:10 WBC 6.7 (4.3-11.1) K/mcL Hgb 8.3 L (11.5-15.4) g/dL Hct 25.9 L (35.3-44.9) % Plt Count 365 (140-400) K/mcL Neutrophils # 5.1 (1.6-8.9) K/mcL BMP 12/30/17 05:10 Sodium 138 Potassium 3.5 Chloride 107 Carbon Dioxide 25 BUN 4 L Creatinine 0.58 L Glucose 106 H Calcium 8.6 - Impressions Impressions Tunnelled Catheter Removal 12/29/17 00:00 IMPRESSION: Successful subcutaneous Port-A-Cath removal D/ / 12/29/2017 14:48:21 Pilar Mckeon MD / Valeria Duque Interpreting Provider: Pilar Mckeon MD Echocardiogram 12/29/17 08:07 Impressions: LVEF 65%. Normal LV chamber size, wall thickness and function. Mild left ventricular diastolic dysfunction. Normal right ventricular structure and function. Mild tricuspid regurgitation. Mild pulmonary hypertension. Estimated RVSP is 37 mmHg. No evidence of endocarditis visualized. Left Ventricular Wall Motion: Rest Echo Findings All wall segments showed normal motion. Findings: Study Quality * Technically adequate exam. ECG Findings * Normal sinus rhythm. Left Ventricle * LVEF 65%. * Normal LV chamber size, wall thickness and function. * Mild left ventricular diastolic dysfunction. Right Ventricle * Normal right ventricular structure and function. Left Atrium * Mildly dilated left atrium. Right Atrium * Mildly dilated right atrium. Interatrial Septum * No evidence of PFO by color Doppler. Aortic Valve * Aortic valve not well visualized. * No aortic regurgitation. * No aortic stenosis. Mitral Valve * Normal mitral valve structure and function. * No mitral regurgitation. * No mitral stenosis. Tricuspid Valve * Normal tricuspid valve structure. * Mild tricuspid regurgitation. * Mild pulmonary hypertension. * Estimated RVSP is 37 mmHg. * Estimated RA pressure is 5 mmHg. Pulmonic Valve * Normal pulmonic valve structure and function. * No pulmonic regurgitation. Aorta * Normally sized aortic root. Pericardium * The pericardium appears normal. IVC * Normal IVC dimensions and inspiratory collapse. Pulmonary Artery * Normal visualized portions of the main pulmonary artery. Consult Discharge Plan - Plan Referrals: Niecy Albarran [Primary Care Provider] - <Enio Castillo H - Last Filed: 12/30/17 14:35> Date of Encounter: 12/30/17 - Assessment and plan (1) GERD (gastroesophageal reflux disease) Current Visit: No Status: Chronic Qualifiers: Esophagitis presence: esophagitis presence not specified Qualified Code(s) : K21.9 - Gastro-esophageal reflux disease without esophagitis (2) Anxiety and depression Current Visit: No Status: Chronic (3) Cellulitis Current Visit: Yes Status: Acute Qualifiers: Site of cellulitis: trunk Site of cellulitis of trunk: chest wall Qualified Code(s): L03.313 - Cellulitis of chest wall (4) Sepsis Current Visit: Yes Status: Acute Qualifiers: Sepsis type: sepsis due to unspecified organism Qualified Code(s): A41.9 - Sepsis, unspecified organism (5) Chronic diarrhea Current Visit: Yes Status: Acute (6) Lung nodule Current Visit: Yes Status: Acute - Time Spent With Patient Total time spent is greater than 50% in coordination of care (as documented) at patient's floor/unit and/or counseling patient: - Constitutional Vitals: Temp Pulse Resp BP Pulse Ox 98.0 F 92 16 124/87 99 12/30/17 14:19 12/30/17 14:19 12/30/17 14:19 12/30/17 14:19 12/30/17 14:19 Internal Medicine: Result - Labs CBC & Chem 7: 12/30/17 05:10 12/30/17 05:10 Labs: Short CBC 12/30/17 Range/Units 05:10 WBC 6.7 (4.3-11.1) K/mcL Hgb 8.3 L (11.5-15.4) g/dL Hct 25.9 L (35.3-44.9) % Plt Count 365 (140-400) K/mcL Neutrophils # 5.1 (1.6-8.9) K/mcL BMP 12/30/17 05:10 Sodium 138 Potassium 3.5 Chloride 107 Carbon Dioxide 25 BUN 4 L Creatinine 0.58 L Glucose 106 H Calcium 8.6 - Impressions Impressions Tunnelled Catheter Removal 12/29/17 00:00 IMPRESSION: Successful subcutaneous Port-A-Cath removal D/ / 12/29/2017 14:48:21 Pilar Mckeon MD / aVleria Duque Interpreting Provider: Pilar Mckeon MD Echocardiogram 12/29/17 08:07 Impressions: LVEF 65%. Normal LV chamber size, wall thickness and function. Mild left ventricular diastolic dysfunction. Normal right ventricular structure and function. Mild tricuspid regurgitation. Mild pulmonary hypertension. Estimated RVSP is 37 mmHg. No evidence of endocarditis visualized. Left Ventricular Wall Motion: Rest Echo Findings All wall segments showed normal motion. Findings: Study Quality * Technically adequate exam. ECG Findings * Normal sinus rhythm. Left Ventricle * LVEF 65%. * Normal LV chamber size, wall thickness and function. * Mild left ventricular diastolic dysfunction. Right Ventricle * Normal right ventricular structure and function. Left Atrium * Mildly dilated left atrium. Right Atrium * Mildly dilated right atrium. Interatrial Septum * No evidence of PFO by color Doppler. Aortic Valve * Aortic valve not well visualized. * No aortic regurgitation. * No aortic stenosis. Mitral Valve * Normal mitral valve structure and function. * No mitral regurgitation. * No mitral stenosis. Tricuspid Valve * Normal tricuspid valve structure. * Mild tricuspid regurgitation. * Mild pulmonary hypertension. * Estimated RVSP is 37 mmHg. * Estimated RA pressure is 5 mmHg. Pulmonic Valve * Normal pulmonic valve structure and function. * No pulmonic regurgitation. Aorta * Normally sized aortic root. Pericardium * The pericardium appears normal. IVC * Normal IVC dimensions and inspiratory collapse. Pulmonary Artery * Normal visualized portions of the main pulmonary artery. - Attending Attestation consider bacteremia ABNER pending
[2017-12-30] MEDS: Sucralfate 1 GM TABLET PO SCH ×4 (08:16→20:35)
[2017-12-30] MEDS: Venlafaxine XR (24 HR) 37.5 MG CAP.ER.24H PO SCH (08:17)
[2017-12-30] MEDS: Lactobacillus 1 EACH CAP.SPRINK PO SCH ×2 (08:17→20:35)
[2017-12-30] MEDS: Vancomycin Oral Soln 250 MG/5 ML UDC PO SCH ×4 (08:17→20:36)
[2017-12-30] MEDS: ARIPiprazole 10 MG TABLET PO SCH (08:17)
[2017-12-30] MEDS: Loratadine 10 MG TABLET PO SCH (08:17)
[2017-12-30] MEDS: Cholecalciferol (D-3) 1,000 UNIT TABLET PO SCH (08:18)
[2017-12-30] MEDS: BuPROPion XL (24 HR) 150 MG TABLET PO SCH (08:18)
[2017-12-30] MEDS: tiZANidine 4 MG TABLET PO SCH ×2 (08:18→20:35)
--- NOTE | 2017-12-30 10:27 | Infectious Disease Progress No ---
Date of Encounter: 12/30/17 Time of Encounter: 10:25 - Assessment and Plan (1) Sepsis Current Visit: Yes Status: Acute Upon presentation, patient had comes a fevers, chills. she had fever of 102.7, pulse 133, respirations 14, blood pressure 90s/50s. Source of infection likely secondary to MSSA and klebsiella from infected port, which was removed 12/29/17. Chest CT on 12/28/17 showed extensive stranding consistent with cellulitis associated with the catheter of the left subclavian port, involving anterior chest wall, left interpectoral space, left axilla, and left supraclavicular fossa. There were no findings associated with abscess or DVT. Blood cultures from 12/28/17 positive for gram-negative aris, gram-negative enterobacteraceae group, klebsiella oxytoca, gram positive cocci, staph species. Repeat blood cultures from 12/29/17 her pending TTE from 12/29: EF 65%, no evidence of endocarditis. Cr clearance: 97 Plan: ABNER later today. oral vancomycin day 3 Received 2 days zosyn- discontinued 12/29 nafcillin day 2 for MSSA Levaquin day 2 for klebsiella oxytoca await for final results from original cultures and repeat blood culture prelim culture from port: gram negative aris. repeat blood cultures pending Qualifiers: Sepsis type: sepsis due to unspecified organism Qualified Code(s): A41.9 - Sepsis, unspecified organism (2) Bacteremia Current Visit: Yes Status: Acute plan as above (3) Infected venous access port Current Visit: Yes Status: Acute Patient has sepsis secondary to infected left subclavian port that was placed about 6-7 months ago at [facility] so she can get Zofran IV fluids port was removed by IR 12/29/17 Qualifiers: Encounter type: initial encounter Qualified Code(s): T80.219A - Unspecified infection due to central venous catheter, initial encounter (4) C. difficile diarrhea Current Visit: Yes Status: Acute Patient has been having diarrhea for the past 2-3 weeks urology positive for C diff toxin Plan: continue oral vancomycin day 3 (5) Gastritis Current Visit: Yes Status: Acute Diagnosed with gastritis on EGD from last admission. Continue carafate Qualifiers: Gastritis type: unspecified gastritis Chronicity: chronic Gastritis bleeding: without bleeding Qualified Code(s): K29.50 - Unspecified chronic gastritis without bleeding (6) CAD (coronary artery disease) Current Visit: No Status: Chronic Qualifiers: Coronary Disease-Associated Artery/Lesion type: [place] artery [place] vs. transplanted heart: [place] heart Associated angina: without angina Qualified Code(s): I25.10 - Atherosclerotic heart disease of [place] coronary artery without angina pectoris (7) CKD (chronic kidney disease) Current Visit: No Status: Chronic Sees Dr. García outpatient Qualifiers: Chronic kidney disease stage: stage 2 (mild) Qualified Code(s): N18.2 - Chronic kidney disease, stage 2 (mild) (8) Chronic pancreatitis Current Visit: Yes Status: Acute conitnue creon, management per primary service Qualifiers: Pancreatitis type: unspecified pancreatitis type Qualified Code(s): K86.1 - Other chronic pancreatitis (9) Lung nodule Current Visit: Yes Status: Acute CT of the chest showed .6 cmx .6 cm solid nodule in the left upper lobe and new groundglass nodules measuring .6cm.x4cm in the right upper lobe with possible partial cavitation. outpatient follow up recommended. - Subjective Interval history: 60-year-old female evaluated at bedside. She was laying in bed comfortably. She denies nausea, vomiting, diarrhea, fever, chills, chest pain, shortness of breath Infect Dis PN-Objective Data - Labs CBC & Chem 7: 12/30/17 05:10 12/30/17 05:10 Labs: Laboratory Results - last 24 hr 12/30/17 12/30/17 05:10 05:10 WBC 6.7 RBC 3.22 L Hgb 8.3 L Hct 25.9 L MCV 80.4 L MCH 25.8 L MCHC 32.0 RDW 17.0 H Plt Count 365 MPV 8.9 L Immature Gran % 0.3 Seg Neutrophils % 75.7 Lymphocytes % 16.2 Monocytes % 5.5 Eosinophils % 1.9 Basophils % 0.4 Neutrophils # 5.1 Lymphocytes # 1.1 Monocytes # 0.4 Eosinophils # 0.1 Basophils # 0.0 Sodium 138 Potassium 3.5 Chloride 107 Carbon Dioxide 25 BUN 4 L Creatinine 0.58 L Est GFR ( Amer) > 60 Est GFR (Non-Af Amer) > 60 BUN/Creatinine Ratio 7 Glucose 106 H Calculated Osmolality 283 Calcium 8.6 Cultures: Cultures 12/29/17 10:10 Blood Culture - Preliminary Port System Gram Negative Aris Serology 12/28/17 12/28/17 Range/Units 23:45 21:45 Nasal Screen MRSA (PCR) Positive A (Negative) Stl C. diff Tox B Gene Positive (Negative) - Impressions Impressions Tunnelled Catheter Removal 12/29/17 00:00 IMPRESSION: Successful subcutaneous Port-A-Cath removal D/ / 12/29/2017 14:48:21 Pilar Mckeon MD / Valeria Duque Interpreting Provider: Pilar Mckeon MD Echocardiogram 12/29/17 08:07 Impressions: LVEF 65%. Normal LV chamber size, wall thickness and function. Mild left ventricular diastolic dysfunction. Normal right ventricular structure and function. Mild tricuspid regurgitation. Mild pulmonary hypertension. Estimated RVSP is 37 mmHg. No evidence of endocarditis visualized. Left Ventricular Wall Motion: Rest Echo Findings All wall segments showed normal motion. Findings: Study Quality * Technically adequate exam. ECG Findings * Normal sinus rhythm. Left Ventricle * LVEF 65%. * Normal LV chamber size, wall thickness and function. * Mild left ventricular diastolic dysfunction. Right Ventricle * Normal right ventricular structure and function. Left Atrium * Mildly dilated left atrium. Right Atrium * Mildly dilated right atrium. Interatrial Septum * No evidence of PFO by color Doppler. Aortic Valve * Aortic valve not well visualized. * No aortic regurgitation. * No aortic stenosis. Mitral Valve * Normal mitral valve structure and function. * No mitral regurgitation. * No mitral stenosis. Tricuspid Valve * Normal tricuspid valve structure. * Mild tricuspid regurgitation. * Mild pulmonary hypertension. * Estimated RVSP is 37 mmHg. * Estimated RA pressure is 5 mmHg. Pulmonic Valve * Normal pulmonic valve structure and function. * No pulmonic regurgitation. Aorta * Normally sized aortic root. Pericardium * The pericardium appears normal. IVC * Normal IVC dimensions and inspiratory collapse. Pulmonary Artery * Normal visualized portions of the main pulmonary artery. Exam - Constitutional Vitals: Temp Pulse Resp BP Pulse Ox 98 F 91 14 130/86 97 12/30/17 06:59 12/30/17 06:59 12/30/17 06:59 12/30/17 06:59 04/10/18 06:59 - Head Head exam: Present: atraumatic, normocephalic - Respiratory Respiratory exam: Present: CTAB - Cardiovascular Cardiovascular exam: Present: RRR, +S1, +S2 - GI/Abdominal GI/Abdominal exam: Present: normal bowel sounds, soft. Absent: distended, tenderness - Extremities Exam Extremities exam: Absent: calf tenderness, pedal edema, tenderness - Neurological Exam Neurological exam: Present: alert, oriented X3, no focal deficits - Psychiatric Psychiatric exam: Present: normal affect, normal mood Consult Discharge Plan - Plan Referrals: Niecy Albarran [Primary Care Provider] - - Attending Attestation I examined this patient and my medical decision-making was reviewed with the Resident Physician. I agree with the documented findings, disposition and treatment plan as described except to the extent set forth below.
[2017-12-30] MEDS ORDERED: Lidocaine Viscous Oral Soln 15 ML SOLUTION MM PRN (11:50)
[2017-12-30] MEDS ORDERED: 0.9 % Sodium Chloride 500 ML IVC ONE ×2 (11:51→13:05)
[2017-12-30] MEDS ORDERED: Tetracaine/Benzocaine/Butamben 200MG/SPRAY (100SPY/BOT) MM ONE (11:51)
[2017-12-30] MEDS: *HR* Midazolam HCl 5 MG/5 ML VIAL IVP PRN ×8 (12:10→12:45)
[2017-12-30] MEDS: *HR* FentaNYL (PF) 100 MCG/2 ML VIAL IVP PRN ×7 (12:10→12:45)
[2017-12-30] MEDS: Levofloxacin 500 MG/100 ML 500 MG/100 ML BAG IVPB SCH (16:08)
[2017-12-30] MEDS: Temazepam 15 MG CAPSULE PO PRN (20:49)
[2017-12-30] MEDS: MORPHINE SUL Oral CONC 10 MG/0.5 ML ORAL.SYG SL PRN (23:46)
[2017-12-31 05:26] LABS: Basophils # 0.1 K/mcL (0.0-0.2); Basophils % 0.9 %; Eosinophils # 0.2 K/mcL (0.0-0.6); Eosinophils % 3.2 %; Hematocrit 26.3 % (35.3-44.9); Hemoglobin 8.3 g/dL (11.5-15.4); Immature Granulocytes % 0.2 % (0-4); Lymphocytes # 1.5 K/mcL (0.6-4.6); Lymphocytes % 28.4 %; Mean Corpuscular HGB Conc 31.6 g/dL (31.6-35.5); Mean Corpuscular Hemoglobin 25.6 pg (28.0-33.3); Mean Corpuscular Volume 81.2 fL (83.0-100.0); Mean Platelet Volume 8.8 fL (9.4-12.4); Monocytes # 0.3 K/mcL (0.0-1.3); Monocytes % 6.2 %; Neutrophils # 3.3 K/mcL (1.6-8.9); Platelet Count 384 K/mcL (140-400); Red Blood Count 3.24 M/mcL (3.82-4.97); Red Cell Distribution Width 17.2 % (11.5-14.5); Segmented Neutrophils % 61.1 %
[2017-12-31 05:45] LABS: BUN/Creatinine Ratio 6 (6-26); Blood Urea Nitrogen 4 mg/dL (6-20); Calcium 8.7 mg/dL (8.6-10.3); Carbon Dioxide 26 mEq/L (23-29); Chloride 109 mEq/L (98-107); Glucose 91 mg/dL (70-105); Osmolality,Calculated 292 (280-300); Potassium 3.2 mEq/L (3.5-5.1); Sodium 143 mEq/L (136-145); eGFR For African Americans > 60 (> 60); eGFR For Non-African Americans > 60 (> 60)
[2017-12-31] MEDS: Nafcillin 3,000 MG in D5% in Water 100 ML IVPB SCH ×3 (05:45→14:51)
[2017-12-31] MEDS: *HR* Enoxaparin 40 MG/0.4 ML SYRINGE SQ SCH (05:46)
[2017-12-31] MEDS: ARIPiprazole 10 MG TABLET PO SCH (08:22)
[2017-12-31] MEDS: Venlafaxine XR (24 HR) 37.5 MG CAP.ER.24H PO SCH (08:22)
[2017-12-31] MEDS: Cholecalciferol (D-3) 1,000 UNIT TABLET PO SCH (08:23)
[2017-12-31] MEDS: Sucralfate 1 GM TABLET PO SCH ×4 (08:23→21:08)
[2017-12-31] MEDS: Lactobacillus 1 EACH CAP.SPRINK PO SCH ×2 (08:23→21:08)
[2017-12-31] MEDS: Loratadine 10 MG TABLET PO SCH (08:23)
[2017-12-31] MEDS: tiZANidine 4 MG TABLET PO SCH ×2 (08:23→21:08)
[2017-12-31] MEDS: BuPROPion XL (24 HR) 150 MG TABLET PO SCH (08:23)
[2017-12-31] MEDS: Vancomycin Oral Soln 250 MG/5 ML UDC PO SCH ×4 (08:34→21:10)
[2017-12-31] MEDS: *HR* OxyCODONE Immed Rel 5 MG TABLET PO PRN (08:35)
--- NOTE | 2017-12-31 10:48 | Internal Med Progress Note ---
<Mary Rodríguez - Last Filed: 12/31/17 11:17> Date of Encounter: 12/31/17 Time of Encounter: 10:15 - Assessment and plan (1) Sepsis Current Visit: Yes Status: Acute Assessment and plan: Resolved Sepsis upon admission secondary to infected port, Fever 102.7, tachycardic 133, lactic acid 1.[address]: cellulitis at catheter left side, subcutaneous port anterior left chest wall, left axilla, left supraclavicular fossa. New nodules 0.6 x 0.4 right upper lobe. TTE: EF 65%, mild diastolic dysfunction, mild TR, mild pulmonary hypertension. no endocarditiis. ABNER: no endocarditis 12/28/2017 Blood cultures: positive for GNR, GPC, MSSA, klebsiella 12/29/2017 Port system culture: GNR 12/29/2017 chest culture: GPC WBC 5.4, afebrile -levaquin day 3 -nafcillin day 3 -blood cultures pending. Waiting on negative blood cultures. -ID consulted, recommendations appreciated for outpatient continuation of antibiotics Qualifiers: Sepsis type: sepsis due to unspecified organism Qualified Code(s): A41.9 - Sepsis, unspecified organism (2) Infected venous access port Current Visit: Yes Status: Acute Assessment and plan: Infected port that was removed by IR today. She has port because after gastric bypass surgery she had abdominal pain and nausea for which she gets zofran through port. -12/29/2017 Port culture: GNR -see plan above Qualifiers: Encounter type: initial encounter Qualified Code(s): T80.219A - Unspecified infection due to central venous catheter, initial encounter (3) C. difficile diarrhea Current Visit: Yes Status: Acute Assessment and plan: Positive for C.diff She reported having diarrhea for months, when she was admitted 2 weeks ago she tested negative for C.diff. She reports improvement in diarrhea she had 3 bowel movements yesterday that were more formed. -oral vancomycin day 4 (4) Anxiety and depression Current Visit: No Status: Chronic Assessment and plan: Continued home meds (5) Lung nodule Current Visit: Yes Status: Acute Assessment and plan: Chest CT: New nodules 0.6 x 0.4 right upper lobe. need out pt f/u CT of Chest in 3 months (6) GERD (gastroesophageal reflux disease) Current Visit: No Status: Chronic Assessment and plan: History of Gerd. Continued home PPI + Carafate Qualifiers: Esophagitis presence: esophagitis presence not specified Qualified Code(s) : K21.9 - Gastro-esophageal reflux disease without esophagitis (7) Chronic pancreatitis Current Visit: Yes Status: Acute Assessment and plan: history of gastric bypass. Since then has had chronic pancreatitis for which she gets creon Qualifiers: Pancreatitis type: unspecified pancreatitis type Qualified Code(s): K86.1 - Other chronic pancreatitis (8) DVT prophylaxis Current Visit: No Status: Acute Assessment and plan: Lovenox SQ (9) Bacteremia Current Visit: Yes Status: Acute Assessment and plan: Blood cultures: positive for GNR, GPC, staph aureus, klebsiella -see plan above - Time Spent With Patient Total time spent is greater than 50% in coordination of care (as documented) at patient's floor/unit and/or counseling patient: - Subjective Interval history: Patient seen and examined at bedside. She has full range of motion of her left arm now. She reports that the diarrhea has improved and she only had 3 bowel movements yesterday that were more formed. Patient denies fever, chills, abdominal pain, nausea, vomiting. - Constitutional Vitals: Temp Pulse Resp BP Pulse Ox 98.0 F 85 15 139/88 97 12/31/17 06:56 12/31/17 06:56 12/31/17 06:56 12/31/17 06:56 12/31/17 06:56 General appearance: Present: A&O X 3, no acute distress, answers questions appropriately Exam: Gen.: Vitals noted. No acute distress. AAOx3 HEENT: oropharynx clear, Normocephalic, atraumatic Neck: Supple. No adenopathy. Cardiac: RRR, no murmur, +S1/S2 Pulmonary: CTA bilaterally, no wheezes, rales or rhonchi, equal chest expansion Abdomen: soft, nontender, Bowel sounds noted, no guarding skin: no tenderness to left upper chest MSK: ROM intact, no joint swelling noted Extremities: no BLE edema, nontender calf Neuro: A&Ox3, moves all extremities, no focal deficits Psych: Appropriate mood and behavior Internal Medicine: Result - Labs CBC & Chem 7: 12/31/17 05:02 12/31/17 05:02 Labs: Short CBC 12/31/17 Range/Units 05:02 WBC 5.4 (4.3-11.1) K/mcL Hgb 8.3 L (11.5-15.4) g/dL Hct 26.3 L (35.3-44.9) % Plt Count 384 (140-400) K/mcL Neutrophils # 3.3 (1.6-8.9) K/mcL BMP 12/31/17 05:02 Sodium 143 Potassium 3.2 L Chloride 109 H Carbon Dioxide 26 BUN 4 L Creatinine 0.68 Glucose 91 Calcium 8.7 Consult Discharge Plan - Plan Referrals: Niecy Albarran [Primary Care Provider] - <Enio Castillo H - Last Filed: 12/31/17 13:14> Date of Encounter: 12/31/17 - Assessment and plan (1) GERD (gastroesophageal reflux disease) Current Visit: No Status: Chronic Qualifiers: Esophagitis presence: esophagitis presence not specified Qualified Code(s) : K21.9 - Gastro-esophageal reflux disease without esophagitis (2) DVT prophylaxis Current Visit: No Status: Acute (3) Anxiety and depression Current Visit: No Status: Chronic (4) Sepsis Current Visit: Yes Status: Acute Qualifiers: Sepsis type: methicillin susceptible Staphylococcus aureus Qualified Code(s ): A41.01 - Sepsis due to Methicillin susceptible Staphylococcus aureus (5) Lung nodule Current Visit: Yes Status: Acute (6) Infected venous access port Current Visit: Yes Status: Acute Qualifiers: Encounter type: initial encounter Qualified Code(s): T80.219A - Unspecified infection due to central venous catheter, initial encounter (7) C. difficile diarrhea Current Visit: Yes Status: Acute (8) Chronic pancreatitis Current Visit: Yes Status: Acute Qualifiers: Pancreatitis type: unspecified pancreatitis type Qualified Code(s): K86.1 - Other chronic pancreatitis (9) Bacteremia Current Visit: Yes Status: Acute - Time Spent With Patient Total time spent is greater than 50% in coordination of care (as documented) at patient's floor/unit and/or counseling patient: - Constitutional Vitals: Temp Pulse Resp BP Pulse Ox 97.9 F 89 15 103/68 97 12/31/17 11:07 12/31/17 11:07 12/31/17 11:07 12/31/17 11:07 12/31/17 11:07 Internal Medicine: Result - Labs CBC & Chem 7: 12/31/17 05:02 12/31/17 05:02 Labs: Short CBC 12/31/17 Range/Units 05:02 WBC 5.4 (4.3-11.1) K/mcL Hgb 8.3 L (11.5-15.4) g/dL Hct 26.3 L (35.3-44.9) % Plt Count 384 (140-400) K/mcL Neutrophils # 3.3 (1.6-8.9) K/mcL BMP 12/31/17 05:02 Sodium 143 Potassium 3.2 L Chloride 109 H Carbon Dioxide 26 BUN 4 L Creatinine 0.68 Glucose 91 Calcium 8.7 - Attending Attestation sepsis 2ry to MSSA and Klebsiella bacteremia, port infection, also due to acute C diff colitis On nafcillin, levaquin day 3 oral vancomycin day 4 ID following the case Blood culures positive, unable to place PICC line I examined this patient and my medical decision-making was reviewed with the Resident Physician. I agree with the documented findings, disposition and treatment plan as described except to the extent set forth below.
--- NOTE | 2017-12-31 12:57 | Infectious Disease Progress No ---
Date of Encounter: 12/31/17 Time of Encounter: 12:55 - Assessment and Plan (1) Sepsis Current Visit: Yes Status: Acute The patient had three SIRS criteria plus hypotension responsive to IV fluids on admission. Likely secondary to A-port infection and bacteremia. Improved. WBC has remained normal. Fevers and tachycardia have resolved. Blood pressure has normalized. Peripheral blood cultures drawn 12/28/17 are positive 2/2 sets for K. oxytoca and MSSA. A-port blood culture drawn 12/29/17 was positive 1/1 set for GNR. Repeat peripheral blood cultures drawn 12/30/17 are pending x 2 sets. Qualifiers: Sepsis type: methicillin susceptible Staphylococcus aureus Qualified Code(s ): A41.01 - Sepsis due to Methicillin susceptible Staphylococcus aureus (2) Bacteremia Current Visit: Yes Status: Acute Causative organism: MSSA and K. oxytoca. Source: left upper chest a-port infection. Peripheral blood cultures drawn 12/28/17 are positive 2/2 sets for K. oxytoca and MSSA. A-port blood culture drawn 12/29/17 was positive 1/1 set for GNR. Repeat peripheral blood cultures drawn 12/30/17 are pending x 2 sets. Complicated due to the presence of septic emboli. A-port removed 12/29/17. No endocarditis stigmata noted on exam. The patient has one major and two minor Modified Mcdermott's Criteria. ABNER negative for vegetations. Continue Nafcillin, but change to 2 grams IV Q4H. Continue Levaquin, but increase to 750mg IV daily. Antibiotics dosed for CrCl ~81. Dosing discussed with Az Kearns. Duration of treatment depends on the clinical picture, but likely 4 weeks due to the complicated nature of the bacteremia. May be able to switch to PO Levaquin on discharge, but will need IV Nafcillin via 24 hour continuous infusion. Monitor renal function and dose-adjust antibiotics. Avoid insertion of central IV access until repeat blood cultures are negative x 48 hours. medical and health services manager to assist with discharge planning. (3) Infected venous access port Current Visit: Yes Status: Acute Location: Left upper chest. Likely secondary to recent access of the a-port. Causative organism: MSSA and K. oxytoca. Peripheral blood cultures drawn 12/28/17 are positive 2/2 sets for K. oxytoca and MSSA. A-port blood culture drawn 12/29/17 was positive 1/ set for GNR. Repeat peripheral blood cultures drawn 12/30/17 are pending x 2 sets. A-port removed 12/29/17 by IR. Continue wound care per the primary team. Continue antibiotics as above. Qualifiers: Encounter type: initial encounter Qualified Code(s): T80.219A - Unspecified infection due to central venous catheter, initial encounter (4) Lung nodule Current Visit: Yes Status: Acute CT of the chest showed .6 cmx .6 cm solid nodule in the left upper lobe and new groundglass nodules measuring .6cm.x4cm in the right upper lobe with possible partial cavitation concerning for septic emboli. Continue antibiotics as above. (5) C. difficile diarrhea Current Visit: Yes Status: Acute Likely secondary to recent antibiotic use. Stool positive for C. diff. Patient reports stools are less frequent and more formed. Continue Vancomycin 125mg PO QID. Duration of treatment depends on the clinical picture. She may require a prolonged course of PO Vanc since she will be on IV and PO antibiotics for a prolonged period of time. Continue C. diff precautions per protocol. (6) Gastritis Current Visit: Yes Status: Acute Diagnosed with gastritis on EGD from last admission. Continue carafate. Qualifiers: Gastritis type: unspecified gastritis Chronicity: chronic Gastritis bleeding: without bleeding Qualified Code(s): K29.50 - Unspecified chronic gastritis without bleeding (7) Chronic pancreatitis Current Visit: Yes Status: Acute Management per the primary team. Qualifiers: Pancreatitis type: unspecified pancreatitis type Qualified Code(s): K86.1 - Other chronic pancreatitis (8) CAD (coronary artery disease) Current Visit: No Status: Chronic Qualifiers: Coronary Disease-Associated Artery/Lesion type: [place] artery [place] vs. transplanted heart: [place] heart Associated angina: without angina Qualified Code(s): I25.10 - Atherosclerotic heart disease of [place] coronary artery without angina pectoris (9) COPD (chronic obstructive pulmonary disease) Current Visit: No Status: Chronic Qualifiers: COPD type: unspecified COPD Qualified Code(s): J44.9 - Chronic obstructive pulmonary disease, unspecified (10) CKD (chronic kidney disease) Current Visit: No Status: Chronic Appears stable. Continue to trend. Dose-adjust antibiotics. Avoid nephrotoxins as able. Qualifiers: Chronic kidney disease stage: stage 2 (mild) Qualified Code(s): N18.2 - Chronic kidney disease, stage 2 (mild) - Subjective Interval history: Patient seen and examined. No acute events noted overnight. Patient states that overall she feels better today. Denies fevers, chills, or rigors. Denies headache, neck pain, or dizziness. Denies chest pain, shortness of breath, or cough. Reports chronic nausea, but denies vomiting. States her appetite is back to baseline. Denies abdominal pain or urinary complaints. Reports minimal pain at the a-port explantation site, mainly with movement of the LUE. Denies oral thrush or skin lesions. Infect Dis PN-Objective Data - Labs CBC & Chem 7: 12/31/17 05:02 12/31/17 05:02 Labs: Laboratory Results - last 24 hr 12/31/17 12/31/17 05:02 05:02 WBC 5.4 RBC 3.24 L Hgb 8.3 L Hct 26.3 L MCV 81.2 L MCH 25.6 L MCHC 31.6 RDW 17.2 H Plt Count 384 MPV 8.8 L Immature Gran % 0.2 Seg Neutrophils % 61.1 Lymphocytes % 28.4 Monocytes % 6.2 Eosinophils % 3.2 Basophils % 0.9 Neutrophils # 3.3 Lymphocytes # 1.5 Monocytes # 0.3 Eosinophils # 0.2 Basophils # 0.1 Sodium 143 Potassium 3.2 L Chloride 109 H Carbon Dioxide 26 BUN 4 L Creatinine 0.68 Est GFR ( Amer) > 60 Est GFR (Non-Af Amer) > 60 BUN/Creatinine Ratio 6 Glucose 91 Calculated Osmolality 292 Calcium 8.7 Cultures: Cultures 12/29/17 Unknown Wound Culture - Preliminary Chest Gram Positive Cocci 12/29/17 10:10 Blood Culture - Preliminary Port System Gram Negative Aris Serology 12/28/17 12/28/17 Range/Units 23:45 21:45 Nasal Screen MRSA (PCR) Positive A (Negative) Stl C. diff Tox B Gene Positive (Negative) Exam - Constitutional Vitals: Temp Pulse Resp BP Pulse Ox 97.9 F 89 15 103/68 97 12/31/17 11:07 12/31/17 11:07 12/31/17 11:07 12/31/17 11:07 12/31/17 11:07 General appearance: average body habitus, cooperative, no acute distress - Head Head exam: Present: atraumatic, normal inspection, normocephalic - Eye Eye exam: Present: EOMI, normal appearance, PERRL Pupils: Present: normal accommodation Additional comments: No subconjunctival hemorrhage noted. - ENT ENT exam: Present: mucous membranes moist - Neck Neck exam: Present: normal inspection - Respiratory Respiratory exam: Present: CTAB. Absent: rales, respiratory distress, rhonchi, wheezes - Cardiovascular Cardiovascular exam: Present: RRR, +S1, +S2 - GI/Abdominal GI/Abdominal exam: Present: normal bowel sounds, soft. Absent: distended, tenderness - Extremities Exam Extremities exam: Present: normal inspection. Absent: joint swelling, pedal edema, tenderness - Neurological Exam Neurological exam: Present: alert, oriented X3, no focal deficits - Psychiatric Psychiatric exam: Present: normal affect, normal mood - Skin Skin exam: Present: dry, intact, normal color, warm Additional comments: No endocarditis stigmata noted. Dressing to the left upper chest C/D/I without surrounding erythema, warmth, or tenderness. Consult Discharge Plan - Plan Referrals: Niecy Albarran [Primary Care Provider] -
[2017-12-31] MEDS: Ibuprofen 600 MG TABLET PO PRN (14:03)
[2017-12-31] MEDS: MORPHINE SUL Oral CONC 10 MG/0.5 ML ORAL.SYG SL PRN ×2 (15:03→21:09)
[2017-12-31] MEDS: Ondansetron 4 MG/2 ML VIAL IVP PRN ×2 (15:03→21:08)
[2017-12-31] MEDS: Nafcillin 2,000 MG in 0.9 % Sodium Chloride Mini Bag 100 ML IVPB SCH ×2 (16:48→21:05)
[2017-12-31] MEDS: Levofloxacin 750 MG/150 ML 750 MG/150 ML BAG IVPB SCH (17:33)
[2017-12-31] MEDS: Temazepam 15 MG CAPSULE PO PRN (21:07)
[2018-01-01] MEDS: Nafcillin 2,000 MG in 0.9 % Sodium Chloride Mini Bag 100 ML IVPB SCH ×6 (01:08→19:56)
[2018-01-01 05:16] LABS: Basophils % 0.4 %; Eosinophils # 0.3 K/mcL (0.0-0.6); Eosinophils % 5.8 %; Hematocrit 30.8 % (35.3-44.9); Hemoglobin 9.4 g/dL (11.5-15.4); Immature Granulocytes % 0.2 % (0-4); Lymphocytes # 1.8 K/mcL (0.6-4.6); Lymphocytes % 36.4 %; Mean Corpuscular HGB Conc 30.5 g/dL (31.6-35.5); Mean Corpuscular Hemoglobin 25.5 pg (28.0-33.3); Mean Corpuscular Volume 83.7 fL (83.0-100.0); Mean Platelet Volume 8.8 fL (9.4-12.4); Monocytes # 0.2 K/mcL (0.0-1.3); Monocytes % 3.7 %; Neutrophils # 2.6 K/mcL (1.6-8.9); Platelet Count 413 K/mcL (140-400); Red Blood Count 3.68 M/mcL (3.82-4.97); Red Cell Distribution Width 17.8 % (11.5-14.5); Segmented Neutrophils % 53.5 %
[2018-01-01] MEDS: *HR* Enoxaparin 40 MG/0.4 ML SYRINGE SQ SCH (05:22)
[2018-01-01] MEDS: MORPHINE SUL Oral CONC 10 MG/0.5 ML ORAL.SYG SL PRN ×3 (05:30→17:42)
[2018-01-01 05:33] LABS: BUN/Creatinine Ratio 5 (6-26); Blood Urea Nitrogen 4 mg/dL (6-20); Carbon Dioxide 26 mEq/L (23-29); Chloride 107 mEq/L (98-107); Glucose 175 mg/dL (70-105); Osmolality,Calculated 295 (280-300); Potassium 3.8 mEq/L (3.5-5.1); Sodium 142 mEq/L (136-145); eGFR For African Americans > 60 (> 60); eGFR For Non-African Americans > 60 (> 60)
[2018-01-01] MEDS: Cholecalciferol (D-3) 1,000 UNIT TABLET PO SCH (08:28)
[2018-01-01] MEDS: ARIPiprazole 10 MG TABLET PO SCH (08:29)
[2018-01-01] MEDS: BuPROPion XL (24 HR) 150 MG TABLET PO SCH (08:29)
[2018-01-01] MEDS: Ondansetron 4 MG/2 ML VIAL IVP PRN ×2 (08:29→17:42)
[2018-01-01] MEDS: Lactobacillus 1 EACH CAP.SPRINK PO SCH (08:29)
[2018-01-01] MEDS: tiZANidine 4 MG TABLET PO SCH (08:30)
[2018-01-01] MEDS: Venlafaxine XR (24 HR) 37.5 MG CAP.ER.24H PO SCH (08:30)
[2018-01-01] MEDS: Loratadine 10 MG TABLET PO SCH (08:30)
[2018-01-01] MEDS: Sucralfate 1 GM TABLET PO SCH ×3 (08:30→17:14)
[2018-01-01] MEDS: Vancomycin Oral Soln 250 MG/5 ML UDC PO SCH ×3 (08:31→17:14)
--- NOTE | 2018-01-01 10:11 | Infectious Disease Progress No ---
Date of Encounter: 01/01/18 Time of Encounter: 10:09 - Assessment and Plan (1) Sepsis Current Visit: Yes Status: Resolved The patient had three SIRS criteria plus hypotension responsive to IV fluids on admission. Likely secondary to A-port infection and bacteremia. Improved. WBC has remained normal. Fevers and tachycardia have resolved. Blood pressure has normalized. Peripheral blood cultures drawn 12/28/17 are positive 2/2 sets for K. oxytoca and MSSA. A-port blood culture drawn 12/29/17 was positive 1/1 set for GNR. Repeat peripheral blood cultures drawn 12/30/17 are NGTD x 2 sets. Qualifiers: Sepsis type: methicillin susceptible Staphylococcus aureus Qualified Code(s ): A41.01 - Sepsis due to Methicillin susceptible Staphylococcus aureus (2) Bacteremia Current Visit: Yes Status: Acute Causative organism: MSSA and K. oxytoca. Source: left upper chest a-port infection. Peripheral blood cultures drawn 12/28/17 are positive 2/2 sets for K. oxytoca and MSSA. A-port blood culture drawn 12/29/17 was positive 1/1 set for GNR. Repeat peripheral blood cultures drawn 12/30/17 are NGTD x 2 sets. Complicated due to the presence of septic emboli. A-port removed 12/29/17. No endocarditis stigmata noted on exam. The patient has one major and two minor Modified Mcdermott's Criteria. ABNER negative for vegetations. Continue Nafcillin 2 grams IV Q4H. Continue Levaquin 750mg IV daily. Antibiotics dosed for CrCl ~81. Dosing discussed with Az Kearns. Duration of treatment depends on the clinical picture, but likely 4 weeks due to the complicated nature of the bacteremia. May be able to switch to PO Levaquin on discharge, but will need IV Nafcillin via 24 hour continuous infusion. Monitor renal function and dose-adjust antibiotics. Consult VAT for PICC/midline placement. social services manager to assist with discharge planning. Will need weekly CBC, BUN/Cr. Will need weekly IV care per protocol. Follow up with ID 01/15/18 at 0900. (3) Infected venous access port Current Visit: Yes Status: Acute Location: Left upper chest. Likely secondary to recent access of the a-port. Causative organism: MSSA and K. oxytoca. Peripheral blood cultures drawn 12/28/17 are positive 2/2 sets for K. oxytoca and MSSA. A-port blood culture drawn 12/29/17 was positive 1/1 set for GNR. Repeat peripheral blood cultures drawn 12/30/17 are NGTD x 2 sets. A-port removed 12/29/17 by IR. Continue wound care per the primary team. Continue antibiotics as above. Qualifiers: Encounter type: initial encounter Qualified Code(s): T80.219A - Unspecified infection due to central venous catheter, initial encounter (4) Lung nodule Current Visit: Yes Status: Acute CT of the chest showed .6 cmx .6 cm solid nodule in the left upper lobe and new groundglass nodules measuring .6cm.x4cm in the right upper lobe with possible partial cavitation concerning for septic emboli. Continue antibiotics as above. (5) C. difficile diarrhea Current Visit: Yes Status: Acute Likely secondary to recent antibiotic use. Stool positive for C. diff. Patient reports stools are less frequent and more formed. Continue Vancomycin 125mg PO QID. Duration of treatment depends on the clinical picture. She may require a prolonged course of PO Vanc since she will be on IV and PO antibiotics for a prolonged period of time. Continue C. diff precautions per protocol. (6) Gastritis Current Visit: Yes Status: Acute Diagnosed with gastritis on EGD from last admission. Continue carafate. Qualifiers: Gastritis type: unspecified gastritis Chronicity: chronic Gastritis bleeding: without bleeding Qualified Code(s): K29.50 - Unspecified chronic gastritis without bleeding (7) Chronic pancreatitis Current Visit: Yes Status: Acute Management per the primary team. Qualifiers: Pancreatitis type: unspecified pancreatitis type Qualified Code(s): K86.1 - Other chronic pancreatitis (8) CAD (coronary artery disease) Current Visit: No Status: Chronic Qualifiers: Coronary Disease-Associated Artery/Lesion type: [place] artery [place] vs. transplanted heart: [place] heart Associated angina: without angina Qualified Code(s): I25.10 - Atherosclerotic heart disease of [place] coronary artery without angina pectoris (9) COPD (chronic obstructive pulmonary disease) Current Visit: No Status: Chronic Qualifiers: COPD type: unspecified COPD Qualified Code(s): J44.9 - Chronic obstructive pulmonary disease, unspecified (10) CKD (chronic kidney disease) Current Visit: No Status: Chronic Appears stable. Continue to trend. Dose-adjust antibiotics. Avoid nephrotoxins as able. Qualifiers: Chronic kidney disease stage: stage 2 (mild) Qualified Code(s): N18.2 - Chronic kidney disease, stage 2 (mild) - Subjective Interval history: Patient seen and examined. No acute events noted overnight. Patient states that overall she feels better today. Denies fevers, chills, or rigors. Denies headache, neck pain, or dizziness. Denies chest pain, shortness of breath, or cough. Reports chronic nausea, but denies vomiting. States her appetite is back to baseline. Denies abdominal pain or urinary complaints. Denies pain at the a- port explantation site. Denies oral thrush or skin lesions. Reports two semi- formed stools yesterday and one today. Infect Dis PN-Objective Data - Labs CBC & Chem 7: 01/01/18 04:46 01/01/18 04:46 Labs: Laboratory Results - last 24 hr 01/01/18 01/01/18 04:46 04:46 WBC 4.8 RBC 3.68 L Hgb 9.4 L Hct 30.8 L MCV 83.7 MCH 25.5 L MCHC 30.5 L RDW 17.8 H Plt Count 413 H MPV 8.8 L Immature Gran % 0.2 Seg Neutrophils % 53.5 Lymphocytes % 36.4 Monocytes % 3.7 Eosinophils % 5.8 Basophils % 0.4 Neutrophils # 2.6 Lymphocytes # 1.8 Monocytes # 0.2 Eosinophils # 0.3 Basophils # 0.0 Sodium 142 Potassium 3.8 Chloride 107 Carbon Dioxide 26 BUN 4 L Creatinine 0.81 Est GFR ( Amer) > 60 Est GFR (Non-Af Amer) > 60 BUN/Creatinine Ratio 5 L Glucose 175 H Calculated Osmolality 295 Calcium 9.0 Cultures: Cultures 12/29/17 Unknown Wound Culture - Final Chest Staphylococcus aureus 12/29/17 10:10 Blood Culture - Preliminary Port System Gram Negative Aris Serology 12/28/17 12/28/17 Range/Units 23:45 21:45 Nasal Screen MRSA (PCR) Positive A (Negative) Stl C. diff Tox B Gene Positive (Negative) Exam - Constitutional Vitals: Temp Pulse Resp BP Pulse Ox 97.6 F 84 16 101/65 96 01/01/18 06:56 01/01/18 06:56 01/01/18 06:56 01/01/18 06:56 01/01/18 06:56 General appearance: average body habitus, cooperative, no acute distress - Head Head exam: Present: atraumatic, normal inspection, normocephalic - Eye Eye exam: Present: EOMI, normal appearance, PERRL Pupils: Present: normal accommodation - ENT ENT exam: Present: mucous membranes moist - Neck Neck exam: Present: normal inspection - Respiratory Respiratory exam: Present: CTAB. Absent: rales, respiratory distress, rhonchi, wheezes - Cardiovascular Cardiovascular exam: Present: RRR, +S1, +S2 - GI/Abdominal GI/Abdominal exam: Present: normal bowel sounds, soft. Absent: distended, tenderness - Extremities Exam Extremities exam: Present: normal inspection. Absent: joint swelling, pedal edema, tenderness - Neurological Exam Neurological exam: Present: alert, oriented X3, no focal deficits - Psychiatric Psychiatric exam: Present: normal affect, normal mood - Skin Skin exam: Present: dry, intact, normal color, warm Consult Discharge Plan - Plan Referrals: Niecy Albarran [Primary Care Provider] - Norma Bullard CNP [Advanced Practice Nurse] - 01/15/18 9:00 am Prescriptions: Levofloxacin [Levaquin] 750 mg PO DAILY #14 tablet Nafcillin 12,000 mg IVPB Q24H #28 vial
--- NOTE | 2018-01-01 10:22 | Internal Med Progress Note ---
Date of Encounter: 01/01/18 - Assessment and plan (1) Sepsis Current Visit: Yes Status: Resolved Qualifiers: Sepsis type: methicillin susceptible Staphylococcus aureus Qualified Code(s ): A41.01 - Sepsis due to Methicillin susceptible Staphylococcus aureus (2) Infected venous access port Current Visit: Yes Status: Acute Qualifiers: Encounter type: initial encounter Qualified Code(s): T80.219A - Unspecified infection due to central venous catheter, initial encounter (3) Bacteremia Current Visit: Yes Status: Acute (4) C. difficile diarrhea Current Visit: Yes Status: Acute (5) Anxiety and depression Current Visit: No Status: Chronic (6) Lung nodule Current Visit: Yes Status: Acute (7) GERD (gastroesophageal reflux disease) Current Visit: No Status: Chronic Qualifiers: Esophagitis presence: esophagitis presence not specified Qualified Code(s) : K21.9 - Gastro-esophageal reflux disease without esophagitis (8) Chronic pancreatitis Current Visit: Yes Status: Acute Qualifiers: Pancreatitis type: unspecified pancreatitis type Qualified Code(s): K86.1 - Other chronic pancreatitis (9) DVT prophylaxis Current Visit: No Status: Acute - Time Spent With Patient Total time spent is greater than 50% in coordination of care (as documented) at patient's floor/unit and/or counseling patient: - Subjective Interval history: Patient seen and examined at bedside. She has full range of motion of her left arm now. She reports that the diarrhea has improved and she only had 3 bowel movements yesterday that were more formed. Patient denies fever, chills, abdominal pain, nausea, vomiting. - Constitutional Vitals: Temp Pulse Resp BP Pulse Ox 97.6 F 84 16 101/65 96 01/01/18 06:56 01/01/18 06:56 01/01/18 06:56 01/01/18 06:56 01/01/18 06:56 General appearance: Present: A&O X 3, no acute distress, answers questions appropriately Internal Medicine: Result - Labs CBC & Chem 7: 01/01/18 04:46 01/01/18 04:46 Labs: Short CBC 01/01/18 Range/Units 04:46 WBC 4.8 (4.3-11.1) K/mcL Hgb 9.4 L (11.5-15.4) g/dL Hct 30.8 L (35.3-44.9) % Plt Count 413 H (140-400) K/mcL Neutrophils # 2.6 (1.6-8.9) K/mcL BMP 01/01/18 04:46 Sodium 142 Potassium 3.8 Chloride 107 Carbon Dioxide 26 BUN 4 L Creatinine 0.81 Glucose 175 H Calcium 9.0 Consult Discharge Plan - Plan Referrals: Niecy Albarran [Primary Care Provider] - Norma Bullard CNP [Advanced Practice Nurse] - 01/15/18 9:00 am Prescriptions: Levofloxacin [Levaquin] 750 mg PO DAILY #14 tablet Nafcillin 12,000 mg IVPB Q24H #28 vial
--- NOTE | 2018-01-01 10:25 | Discharge Summary ---
<Mary Rodríguez - Last Filed: 01/01/18 13:46> Orders not resulted at time of discharge: Pending orders 12/29/17 10:10 Culture,Blood [BC] Stat 12/30/17 13:50 Culture,Blood [BC] Stat 12/31/17 05:02 Culture,Blood [BC] AM 0400 Date of Encounter: 01/01/18 Time of Encounter: 10:22 - Discharge Diagnosis (1) Sepsis Priority: Primary Status: Resolved Qualifiers: Sepsis type: methicillin susceptible Staphylococcus aureus Qualified Code(s ): A41.01 - Sepsis due to Methicillin susceptible Staphylococcus aureus (2) Infected venous access port Priority: Secondary Status: Acute Qualifiers: Encounter type: initial encounter Qualified Code(s): T80.219A - Unspecified infection due to central venous catheter, initial encounter (3) C. difficile diarrhea Priority: Secondary Status: Acute (4) Anxiety and depression Priority: Secondary Status: Chronic (5) Lung nodule Priority: Secondary Status: Acute (6) GERD (gastroesophageal reflux disease) Priority: Secondary Status: Chronic Qualifiers: Esophagitis presence: esophagitis presence not specified Qualified Code(s) : K21.9 - Gastro-esophageal reflux disease without esophagitis (7) Chronic pancreatitis Priority: Secondary Status: Acute Qualifiers: Pancreatitis type: unspecified pancreatitis type Qualified Code(s): K86.1 - Other chronic pancreatitis (8) DVT prophylaxis Priority: Secondary Status: Acute (9) Bacteremia Priority: Secondary Status: Acute Hospital course: Ms. Astudillo is a 52 year old female with a PMH of COPD, CAD, GERD, HLD, prior [place] , prior seizures TIA, chronic pancreatitis s/p gatsric bypass in 2014 since pt had some intractable nausea and vomiting so she placed on IV Port @ Left subclavian region for IV antiemetics. Now she presented to ER with pain and swelling around the port area from last one week. Pt stated her pain and swelling seems to worsening from last 2-3 days. Denied any SOB. Does have fever with chills. Discharge discussed with: patient, social work - Time Spent with Patient Total time spent providing and/or coordinating discharge services: Greater than 30 minutes - Discharge Medications Prescriptions: Levofloxacin [Levaquin] 750 mg PO DAILY #14 tablet Nafcillin 12,000 mg IVPB Q24H #28 vial Ondansetron HCl 8 mg PO Q8H #21 tablet Vancomycin Oral Soln [Vancocin] 125 mg PO QID #21 udc Home Medications: Tizanidine HCl [Zanaflex] 4 mg PO BID 01/15/16 [History] Temazepam [Restoril] 30 mg PO HS PRN 07/25/17 [History] Venlafaxine XR (24 HR) [Effexor Xr] 37.5 mg PO DAILY 07/25/17 [History] BuPROPion XL (24 HR) [Wellbutrin Xl] 300 mg PO DAILY 08/20/17 [History] Aripiprazole [Abilify] 20 mg PO DAILY 09/08/17 [History] Cholecalciferol (D-3) [Vitamin D] 5,000 unit PO DAILY 09/08/17 [History] Cyanocobalamin (B-12) [Vitamin B12] 1,000 mcg IM QMONTH 09/08/17 [History] Lidocaine/Prilocaine CREAM [Emla] 1 appl TP AD 12/11/17 [History] Loratadine [Allergy Relief] 10 mg PO DAILY 12/11/17 [History] Ondansetron [Zofran] 8 mg PO Q8H PRN 12/11/17 [History] Dicyclomine [Bentyl] 20 mg PO Q6H PRN #30 capsule 12/19/17 [Rx] Oxycodone HCl 5 mg PO Q6H 3 Days #12 tablet 12/19/17 [Rx] Sucralfate [Carafate] 1 gm PO QIDAC #40 tablet 12/19/17 [Rx] Lipase/Protease/Amylase [[place] Dr 6,000 Units Capsule] 1 cap PO QIDAC 12/28/17 [ History] Ranitidine HCl [Zantac] 150 mg PO BID 12/30/17 [History] Levofloxacin [Levaquin] 750 mg PO DAILY #14 tablet 01/01/18 [Rx] Nafcillin 12,000 mg IVPB Q24H #28 vial 01/01/18 [Rx] Ondansetron HCl 8 mg PO Q8H #21 tablet 01/01/18 [Rx] Vancomycin Oral Soln [Vancocin] 125 mg PO QID #21 udc 01/01/18 [Rx] Allergies/Adverse Reactions: 3 Allergy/AdvReac Type Severity Reaction Status Date / Time acetaminophen [From Fioricet] Allergy Hives Verified 12/11/17 13:50 butalbital [From Fioricet] Allergy Hives Verified 12/11/17 13:50 caffeine [From Fioricet] Allergy Hives Verified 12/11/17 13:50 [place] Allergy Hives Verified 12/11/17 13:50 phenytoin [From Dilantin] Allergy Hives Verified 12/11/17 13:50 methocarbamol [From Robaxin] AdvReac Vomiting Verified 12/11/17 13:50 Date of admission: 12/28/17 19:29 Primary care physician: Niecy Albarran Consults: 12/29/17 08:07 Consult to Interventional Radiology [CONS] Stat Consulting Provider: Radiology Interventional [place] Reason for Consult: Remove port-bacteremia Call Completed: Yes 12/29/17 11:55 Consult to Infectious Diseases [CONS] Routine Consulting Provider: Infectious Disease [place] Reason for Consult: infected port. blood culture positive GNR, GPC, staph, klebsiella. CT concern for septic emboli Call Completed: Yes 12/29/17 13:51 Consult to Wound Care [CONS] Routine Reason for Consult: infected port Call Completed: No 12/31/17 13:22 Consult to Invasive Line Access Team [CONS] Routine Reason for Consult: unable to obtain vascular access Line Type: EPIV Discharging clinician: Enio Castillo Anticipated date of discharge: 01/01/18 - Constitutional Vitals: Temp Pulse Resp BP Pulse Ox 97.6 F 84 16 101/65 96 01/01/18 06:56 01/01/18 06:56 01/01/18 06:56 01/01/18 06:56 01/01/18 06:56 General appearance: Present: A&O X 3, no acute distress, answers questions appropriately Exam: Gen.: Vitals noted. No acute distress. AAOx3 HEENT: oropharynx clear, Normocephalic, atraumatic Cardiac: RRR, no murmur, +S1/S2 Pulmonary: CTA bilaterally, no wheezes, rales or rhonchi, equal chest expansion Abdomen: soft, nontender, Bowel sounds noted, no guarding MSK: ROM intact, no joint swelling noted Extremities: no BLE edema, nontender calf, no cyanosis or clubbing Neuro: A&Ox3, moves all extremities, no focal deficits Psych: Appropriate mood and behavior - Patient Status Disposition: Home, Self-Care Condition: Good Functional capacity at discharge: independent ambulation Overall status at discharge: patient is back to baseline - Discharge Instructions Follow Up With: Robert Avelar MD [Partnered Physician] - 01/14/18 3:35 pm Niecy Albarran [Primary Care Provider] - 01/19/18 9:45 am Norma Bullard CNP [Advanced Practice Nurse] - 01/15/18 9:00 am Additional Instructions: finish antibiotics to completion follow up with ID 01/15/18 at 0900 return to hospital should you develop fever, chills, increased pain at port site - Diet and Activity Activity: resume usual activities as tolerated Diet: advance to your usual diet <Enio Castillo - Last Filed: 01/01/18 15:49> Orders not resulted at time of discharge: Pending orders 12/30/17 13:50 Culture,Blood [BC] Stat 12/31/17 05:02 Culture,Blood [BC] AM 0400 Date of Encounter: 01/01/18 - Discharge Diagnosis (1) GERD (gastroesophageal reflux disease) Status: Chronic Qualifiers: Esophagitis presence: esophagitis presence not specified Qualified Code(s) : K21.9 - Gastro-esophageal reflux disease without esophagitis (2) DVT prophylaxis Status: Acute (3) Anxiety and depression Status: Chronic (4) Sepsis Status: Resolved Qualifiers: Sepsis type: methicillin susceptible Staphylococcus aureus Qualified Code(s ): A41.01 - Sepsis due to Methicillin susceptible Staphylococcus aureus (5) Lung nodule Status: Acute (6) Infected venous access port Status: Acute Qualifiers: Encounter type: initial encounter Qualified Code(s): T80.219A - Unspecified infection due to central venous catheter, initial encounter (7) C. difficile diarrhea Status: Acute (8) Chronic pancreatitis Status: Acute Qualifiers: Pancreatitis type: unspecified pancreatitis type Qualified Code(s): K86.1 - Other chronic pancreatitis (9) Bacteremia Status: Acute Hospital course: Ms. Astudillo is a 52 year old female - Time Spent with Patient Total time spent providing and/or coordinating discharge services: Date of admission: 12/28/17 19:29 Primary care physician: Niecy Albarran Consults: 12/29/17 08:07 Consult to Interventional Radiology [CONS] Stat Consulting Provider: Radiology Interventional Cols Reason for Consult: Remove port-bacteremia Call Completed: Yes 12/29/17 11:55 Consult to Infectious Diseases [CONS] Routine Consulting Provider: Infectious Disease [place] Reason for Consult: infected port. blood culture positive GNR, GPC, staph, klebsiella. CT concern for septic emboli Call Completed: Yes 12/29/17 13:51 Consult to Wound Care [CONS] Routine Reason for Consult: infected port Call Completed: No 12/31/17 13:22 Consult to Invasive Line Access Team [CONS] Routine Reason for Consult: unable to obtain vascular access Line Type: EPIV 01/01/18 11:10 Consult to Invasive Line Access Team [CONS] Routine Reason for Consult: Picc Line Insertion Line Type: PICC - Constitutional Vitals: Temp Pulse Resp BP Pulse Ox 97.9 F 78 16 115/83 95 01/01/18 14:24 01/01/18 14:24 01/01/18 14:24 01/01/18 14:24 01/01/18 14:24 - Attending Attestation sepsis 2ry to MSSA and Klebsiella bacteremia, port infection, also due to acute C diff colitis Stable to be discharged on nafcillin, levaquin and oral vancomycin ID follow up as outpatient time spent 40 min I examined this patient and my medical decision-making was reviewed with the Resident Physician. I agree with the documented findings, disposition and treatment plan as described except to the extent set forth below.
[2018-01-01] MEDS ORDERED: Lidocaine -MPF 1% 5 ML AMPUL INFILT ONE (11:10)
--- NOTE | 2018-01-01 13:57 | Physician Discharge Referral ---
<Mary Rodríguez - Last Filed: 01/01/18 13:55> Home Health/Hosp Referral Info Transfer to: Home Health Provider in Charge Post Discharge: PCP - Diagnosis (1) Sepsis Priority: Primary Status: Resolved (2) Infected venous access port Priority: Secondary Status: Acute (3) Bacteremia Priority: Secondary Status: Acute (4) C. difficile diarrhea Priority: Secondary Status: Acute (5) Anxiety and depression Priority: Secondary Status: Chronic (6) Lung nodule Status: Acute (7) GERD (gastroesophageal reflux disease) Status: Chronic (8) Chronic pancreatitis Status: Acute (9) DVT prophylaxis Status: Acute - Respiratory Orders None Smoking Cessation: Smoking cessation has been advised. For more information, call the [employer] Tobacco Quit Line at 5-143-YJOB-NOW. - Diet/Nutrition Diet/Nutrition Orders: Regular - Activity Activity Orders: Up ad martin, Ambulate - Services Needed Following services are medically necessary services: Home Health Aide Other Treatments: administer IV antibiotics - Transfer Medications Prescriptions: Levofloxacin [Levaquin] 750 mg PO DAILY #14 tablet Nafcillin 12,000 mg IVPB Q24H #28 vial Ondansetron HCl 8 mg PO Q8H #21 tablet Vancomycin Oral Soln [Vancocin] 125 mg PO QID #21 c Home Medications: Tizanidine HCl [Zanaflex] 4 mg PO BID 01/15/16 [History] Temazepam [Restoril] 30 mg PO HS PRN 07/25/17 [History] Venlafaxine XR (24 HR) [Effexor Xr] 37.5 mg PO DAILY 07/25/17 [History] BuPROPion XL (24 HR) [Wellbutrin Xl] 300 mg PO DAILY 08/20/17 [History] Aripiprazole [Abilify] 20 mg PO DAILY 09/08/17 [History] Cholecalciferol (D-3) [Vitamin D] 5,000 unit PO DAILY 09/08/17 [History] Cyanocobalamin (B-12) [Vitamin B12] 1,000 mcg IM QMONTH 09/08/17 [History] Lidocaine/Prilocaine CREAM [Emla] 1 appl TP AD 12/11/17 [History] Loratadine [Allergy Relief] 10 mg PO DAILY 12/11/17 [History] Ondansetron [Zofran] 8 mg PO Q8H PRN 12/11/17 [History] Dicyclomine [Bentyl] 20 mg PO Q6H PRN #30 capsule 12/19/17 [Rx] Oxycodone HCl 5 mg PO Q6H 3 Days #12 tablet 12/19/17 [Rx] Sucralfate [Carafate] 1 gm PO QIDAC #40 tablet 12/19/17 [Rx] Lipase/Protease/Amylase [Sivakumar Dr 6,000 Units Capsule] 1 cap PO QIDAC 12/28/17 [ History] Ranitidine HCl [Zantac] 150 mg PO BID 12/30/17 [History] Levofloxacin [Levaquin] 750 mg PO DAILY #14 tablet 01/01/18 [Rx] Nafcillin 12,000 mg IVPB Q24H #28 vial 01/01/18 [Rx] Ondansetron HCl 8 mg PO Q8H #21 tablet 01/01/18 [Rx] Vancomycin Oral Soln [Vancocin] 125 mg PO QID #21 udc 01/01/18 [Rx] Allergies/Adverse Reactions: 3 Allergy/AdvReac Type Severity Reaction Status Date / Time acetaminophen [From Fioricet] Allergy Hives Verified 12/11/17 13:50 butalbital [From Fioricet] Allergy Hives Verified 12/11/17 13:50 caffeine [From Fioricet] Allergy Hives Verified 12/11/17 13:50 [place] Allergy Hives Verified 12/11/17 13:50 phenytoin [From Dilantin] Allergy Hives Verified 12/11/17 13:50 methocarbamol [From Robaxin] AdvReac Vomiting Verified 12/11/17 13:50 Certification: Further, I certify that my clinical findings support that this patient is homebound (i.e. absences from home require considerable and taxing effort and are for medical reasons or jew services or infrequently or short duration when for other reasons) because: she has a continuous IV antibiotic need Homebound Reason: Leaving home requires considerable and taxing effort due to condition Attestation: My signature below is to certify that this patient is under my care and that I, or nurse practitioner, or a physician's family practice physician assistant working with me, has a face-to -face encounter with this patient. Dr. Mary Rodríguez <Enio Castillo - Last Filed: 01/01/18 15:49> - Diagnosis (1) GERD (gastroesophageal reflux disease) Status: Chronic (2) DVT prophylaxis Status: Acute (3) Anxiety and depression Status: Chronic (4) Sepsis Status: Resolved (5) Lung nodule Status: Acute (6) Infected venous access port Status: Acute (7) C. difficile diarrhea Status: Acute (8) Chronic pancreatitis Status: Acute (9) Bacteremia Status: Acute - Respiratory Orders Smoking Cessation: Smoking cessation has been advised. For more information, call the [place] Tobacco Quit Line at 7-244-CLOTNOW. Certification: Further, I certify that my clinical findings support that this patient is homebound (i.e. absences from home require considerable and taxing effort and are for medical reasons or jew services or infrequently or short duration when for other reasons) because: Attestation: My signature below is to certify that this patient is under my care and that I, or nurse practitioner, or a physician's family practice physician assistant working with me, has a face-to -face encounter with this patient.
[2018-01-01] MEDS: Levofloxacin 750 MG/150 ML 750 MG/150 ML BAG IVPB SCH (17:45)
[2018-01-01 19:12] VITALS: BP 125/82
== END 2018-01-01 20:44 | disposition home or self-care (01) | DRG 721 ==
LOC: 3ANU 14:08 → EMEROO 14:08 → 3ANU 17:29
PROVIDERS: ADMIT Internal Medicine; ATTEND Internal Medicine

== ENCOUNTER 2018-03-07 23:46 | Inpatient (IN) ==
[2018-03-08] MEDS ORDERED: 0.9 % Sodium Chloride 1,000 ML IVC ONE ×3 (01:08→08:34)
[2018-03-08] MEDS ORDERED: *HR* Promethazine 25 MG/ML VIAL IVP ONE ×2 (01:08→02:57)
--- NOTE | 2018-03-08 01:46 | Emergency Department Note ---
Disposition Clinical Impression: Intussusception Abdominal pain Qualifiers: Abdominal location: generalized Qualified Code(s): R10.84 - Generalized abdominal pain Intractable nausea and vomiting Qualifiers: Vomiting type: unspecified Qualified Code(s): R11.2 - Nausea with vomiting, unspecified Disposition: Admitted As Inpatient Condition: Fair Time of Disposition: 04:46 Abdominal Pain HPI - General Chief Complaint: ED Abdominal Pain Stated Complaint: Pancreatitis Time Seen by Provider: 03/08/18 01:08 Source: patient Nursing Notes Reviewed: Yes Vital Signs Reviewed: Yes - History of Present Illness HPI Narrative: 52 oh female presents with abdominal pain described as sharp, stabbing with associated nausea and vomiting. She is a history of gastric bypass for weight loss which is limited to chronic nausea which is lead to occasional dehydration which causes pancreatitis. She now has a history of chronic pancreatitis. She was seen and evaluated for similar symptoms admitted Friday, discharge Friday from outside hospital for similar symptoms. These are not notably improved since discharge and are now worsening. She is unable to tolerate food or fluids by mouth. She does have a port in her right chest wall for management of her chronic pancreatitis. She has IV Zofran which she self administers the port to help her nausea so that she may stay hydrated. Her nausea has persisted despite 8 mg IV Zofran given at home. ROS: Positive: As above Negative: Fever, chills, hematemesis, unusual back pain, change in bowel or bladder habits, chest pain, palpitations. Pain Scale: 8 - Related Data Home Medications Medication Instructions Recorded Confirmed Tizanidine HCl [Zanaflex] 4 mg PO BID 01/15/16 03/08/18 Venlafaxine XR (24 HR) [Effexor Xr] 75 mg PO DAILY 07/25/17 03/08/18 BuPROPion XL (24 HR) [Wellbutrin 300 mg PO DAILY 08/20/17 03/08/18 Xl] Aripiprazole [Abilify] 20 mg PO DAILY 09/08/17 03/08/18 Cholecalciferol (D-3) [Vitamin D] 5,000 unit PO DAILY 09/08/17 03/08/18 Cyanocobalamin (B-12) [Vitamin B12] 1,000 mcg IM QMONTH 09/08/17 03/08/18 Loratadine [Allergy Relief] 10 mg PO DAILY 12/11/17 03/08/18 Ondansetron [Zofran] 4 mg GTUBE Q8H PRN 12/11/17 03/08/18 Lipase/Protease/Amylase [[place] 1 cap PO QIDAC 12/28/17 03/08/18 6,000 Units Capsule] Temazepam [Restoril] 15 mg PO HS 03/08/18 03/08/18 Previous Rx's Medication Instructions Recorded Sucralfate [Carafate] 1 gm PO QIDAC #40 tablet 12/19/17 Allergies Allergy/AdvReac Type Severity Reaction Status Date / Time acetaminophen [From Fioricet] Allergy Hives Verified 03/01/18 21:50 butalbital [From Fioricet] Allergy Hives Verified 03/01/18 21:50 caffeine [From Fioricet] Allergy Hives Verified 03/01/18 21:50 [place] Allergy Hives Verified 03/01/18 21:50 phenytoin [From Dilantin] Allergy Hives Verified 03/01/18 21:50 methocarbamol [From Robaxin] AdvReac Vomiting Verified 03/01/18 21:50 All systems ED: reviewed and negative except as stated. Review of Systems: As Per HPI Abdominal Pain PMH - Past Medical History Medical history: Reports: asthma, COPD, coronary artery disease, GERD, hyperlipidemia, myocardial infarction, renal disease, seizures, TIA Female Surgical History: Reports: , cholecystectomy, hysterectomy, orthopedic, other, AD/BSO, Tonsillectomy, other CLIENT SUPPORT COORDINATOR history: Reports: no CLIENT SUPPORT COORDINATOR history Psychiatric history: Reports: anxiety, depression - Social History Smoking status: Never smoker Alcohol use: Reports: none Drug use: Reports: none Physical Exam Vital Signs Reviewed General: Patient is alert, oriented, and in moderate distress from her abdominal pain. Head: atraumatic, normocephalic Eye: normal appearance, PERRL, EOMI, no scleral icterus, no conjunctival injection ENT: mucous membranes tacky, normal external ear exam Neck: normal inspection, trachea midline, full ROM Chest: normal inspection, symmetric chest rise. Port in right chest wall with no overlying erythema or induration. Respiratory: Good respiratory effort. Bilateral breath sounds are clear without wheezing, crackles, or rhonchi. Cardiovascular: Regular rate and rhythm. No clicks, rubs, gallops, or murmors. Normal heart sounds. Abdomen: Bowel sounds present normoactive x-4 quadrants. Abdomen is soft, nondistended, and nontender. No guarding or rebound. No organomegaly noted. Musculoskeletal: Spontaneously moving all extremities. Skin: warm, dry, intact. Neuro: Alert and oriented x4. Sensation light touch intact. Psych: Patient's affect is appropriate for situation. - General General appearance: alert Course Course Narrative: Patient has a history of remote gastric bypass for weight loss which, per patient, has caused chronic nausea which causes occasionally dehydration which she attributes as one of the causes of chronic pancreatitis. She has a port in her right chest wall for management of her chronic pancreatitis and chronic nausea. Serum hematology shows mild anemia which is the patient's chronic baseline. Lab work otherwise unremarkable; specifically normal lipase. Patient's nausea was poorly controlled with her home dose 8 mg Zofran. Phenergan has moderately controlled her nausea though not to the point where she is able to tolerate by mouth intake. Abdominal pain continues and is improved with fentanyl. CT abdomen pelvis without contrast is ordered to ensure no pancreatic necrosis. Per radiology read, there is an incidental small bowel test exception without obstruction. I discussed the CT findings with on-call surgery, Dr. Altamirano. We discussed possibly placing an NG tube however, because patient is not having obstruction, will hold at this time. He is agreeable to be surgical backup with hospital admission. Discussed the patient with the admitting hospitalist, Dr. Martinez, who agrees to accept the patient for intractable nausea and vomiting as well as monitoring test exception. Abdomen/Pelvis CT 03/08/18 02:09 IMPRESSION: No definite acute findings on this noncontrast CT. Incidental note of a 3-4 cm segment of small bowel intussusception in the left upper abdomen without evidence of obstruction. Most small bowel intussusceptions are incidental and spontaneously resolved. D/ / Aramis Mcginnis MD / Aramis Mcginnis MD Interpreting Provider: Aramis Mcginnis MD Vital Signs Temperature 97.7 F 03/07/18 23:55 Pulse Rate 51 03/07/18 23:55 Respiratory Rate 20 03/07/18 23:55 Blood Pressure 90/60 03/07/18 23:55 O2 Sat by Pulse Oximetry 99 03/07/18 23:55 Temperature 97.7 F 03/07/18 23:55 Pulse Rate 56 03/08/18 03:49 Respiratory Rate 18 03/08/18 03:49 Blood Pressure 116/86 03/08/18 03:49 O2 Sat by Pulse Oximetry 98 03/08/18 03:49 Oxygen Delivery Oxygen Delivery Room Air Abdominal Pain - Lab Data Result diagrams: 03/08/18 01:36 03/08/18 01:36 Lab Results 03/08/18 03/08/18 03/08/18 Range/Units 01:36 01:36 01:40 WBC 6.9 (4.3-11.1) K/mcL RBC 3.57 L (3.82-4.97) M/mcL Hgb 9.6 L (11.5-15.4) g/dL Hct 29.9 L (35.3-44.9) % MCV 83.8 (83.0-100.0) fL MCH 26.9 L (28.0-33.3) pg MCHC 32.1 (31.6-35.5) g/dL RDW 17.5 H (11.5-14.5) % Plt Count 358 (140-400) K/mcL MPV 9.1 L (9.4-12.4) fL Immature Gran % 0.1 (0-4) % Seg Neutrophils % 51.7 % Lymphocytes % 38.4 % Monocytes % 5.6 % Eosinophils % 3.3 % Basophils % 0.9 % Neutrophils # 3.6 (1.6-8.9) K/mcL Lymphocytes # 2.7 (0.6-4.6) K/mcL Monocytes # 0.4 (0.0-1.3) K/mcL Eosinophils # 0.2 (0.0-0.6) K/mcL Basophils # 0.1 (0.0-0.2) K/mcL Sodium 133 L (136-145) mEq/L Potassium 4.1 (3.5-5.1) mEq/L Chloride 99 (98-107) mEq/L Carbon Dioxide 27 (23-29) mEq/L BUN 11 (6-20) mg/dL Creatinine 1.24 H (0.60-1.20) mg/dL Est GFR ( Amer) 55 L (> 60) Est GFR (Non-Af Amer) 46 L (> 60) BUN/Creatinine Ratio 9 (6-26) Glucose 104 (70-105) mg/dL Calculated Osmolality 276 L (280-300) Lactic Acid (0.5-2.2) mmol/L Calcium 8.8 (8.6-10.3) mg/dL Total Bilirubin 0.3 (0.3-1.0) mg/dL Direct Bilirubin 0.0 (0.0-0.2) mg/dL Indirect Bilirubin 0.3 (0.0-1.2) mg/dL AST 39 (13-39) Units/L ALT 40 (7-52) Units/L Alkaline Phosphatase 109 H (34-104) Units/L Serum Total Protein 6.7 (6.4-8.9) g/dL Albumin 4.1 (3.5-5.7) g/dL Globulin 2.6 (2.4-3.5) g/dL Albumin/Globulin Ratio 1.6 (1.1-2.2) Lipase 70 (11-82) Units/L Urine Color Yellow (Yellow) Urine Clarity Clear (Clear) Urine pH 5.5 (5.0-8.0) pH Units Ur Specific [place] 1.022 (1.010-1.025) Urine Protein Negative (Neg-Trace) mg/dL Urine Glucose (UA) Normal (Normal) mg/dL Urine Ketones Negative (Negative) mg/dL Urine Blood Negative (Negative) Urine Nitrite Negative (Negative) Urine Bilirubin Negative (Negative) Urine Urobilinogen Normal (Normal) mg/dL Ur Leukocyte Esterase Negative (Negative) Ur Culture Indicated? NO (NO) 03/08/18 Range/Units 03:53 WBC (4.3-11.1) K/mcL RBC (3.82-4.97) M/mcL Hgb (11.5-15.4) g/dL Hct (35.3-44.9) % MCV (83.0-100.0) fL MCH (28.0-33.3) pg MCHC (31.6-35.5) g/dL RDW (11.5-14.5) % Plt Count (140-400) K/mcL MPV (9.4-12.4) fL Immature Gran % (0-4) % Seg Neutrophils % % Lymphocytes % % Monocytes % % Eosinophils % % Basophils % % Neutrophils # (1.6-8.9) K/mcL Lymphocytes # (0.6-4.6) K/mcL Monocytes # (0.0-1.3) K/mcL Eosinophils # (0.0-0.6) K/mcL Basophils # (0.0-0.2) K/mcL Sodium (136-145) mEq/L Potassium (3.5-5.1) mEq/L Chloride (98-107) mEq/L Carbon Dioxide (23-29) mEq/L BUN (6-20) mg/dL Creatinine (0.60-1.20) mg/dL Est GFR ( Amer) (> 60) Est GFR (Non-Af Amer) (> 60) BUN/Creatinine Ratio (6-26) Glucose (70-105) mg/dL Calculated Osmolality (280-300) Lactic Acid 1.1 (0.5-2.2) mmol/L Calcium (8.6-10.3) mg/dL Total Bilirubin (0.3-1.0) mg/dL Direct Bilirubin (0.0-0.2) mg/dL Indirect Bilirubin (0.0-1.2) mg/dL AST (13-39) Units/L ALT (7-52) Units/L Alkaline Phosphatase (34-104) Units/L Serum Total Protein (6.4-8.9) g/dL Albumin (3.5-5.7) g/dL Globulin (2.4-3.5) g/dL Albumin/Globulin Ratio (1.1-2.2) Lipase (11-82) Units/L Urine Color (Yellow) Urine Clarity (Clear) Urine pH (5.0-8.0) pH Units Ur Specific [place] (1.010-1.025) Urine Protein (Neg-Trace) mg/dL Urine Glucose (UA) (Normal) mg/dL Urine Ketones (Negative) mg/dL Urine Blood (Negative) Urine Nitrite (Negative) Urine Bilirubin (Negative) Urine Urobilinogen (Normal) mg/dL Ur Leukocyte Esterase (Negative) Ur Culture Indicated? (NO)
[2018-03-08 01:49] LABS: Basophils # 0.1 K/mcL (0.0-0.2); Basophils % 0.9 %; Eosinophils # 0.2 K/mcL (0.0-0.6); Eosinophils % 3.3 %; Hematocrit 29.9 % (35.3-44.9); Hemoglobin 9.6 g/dL (11.5-15.4); Immature Granulocytes % 0.1 % (0-4); Lymphocytes # 2.7 K/mcL (0.6-4.6); Lymphocytes % 38.4 %; Mean Corpuscular HGB Conc 32.1 g/dL (31.6-35.5); Mean Corpuscular Hemoglobin 26.9 pg (28.0-33.3); Mean Corpuscular Volume 83.8 fL (83.0-100.0); Mean Platelet Volume 9.1 fL (9.4-12.4); Monocytes # 0.4 K/mcL (0.0-1.3); Monocytes % 5.6 %; Neutrophils # 3.6 K/mcL (1.6-8.9); Platelet Count 358 K/mcL (140-400); Red Blood Count 3.57 M/mcL (3.82-4.97); Red Cell Distribution Width 17.5 % (11.5-14.5); Segmented Neutrophils % 51.7 %
[2018-03-08 01:52] LABS: Bilirubin,Urine Negative (Negative); Blood,Urine Negative (Negative); Clarity,Urine Clear (Clear); Color,Urine Yellow (Yellow); Glucose,Urine (UA) Normal (Normal); Ketones,Urine Negative (Negative); Leukocyte Esterase,Urine Negative (Negative); Nitrite,Urine Negative (Negative); PH,Urine 5.5 pH Units (5.0-8.0); Protein,Urine Negative (Neg-Trace); Specific Gravity,Urine 1.022 (1.010-1.025); Urobilinogen,Urine Normal (Normal)
[2018-03-08 02:06] LABS: Albumin 4.1 g/dL (3.5-5.7); Albumin/Globulin Ratio 1.6 (1.1-2.2); Bilirubin,Indirect 0.3 mg/dL (0.0-1.2); Bilirubin,Total 0.3 mg/dL (0.3-1.0); Calcium 8.8 mg/dL (8.6-10.3); Globulin 2.6 g/dL (2.4-3.5); Potassium 4.1 mEq/L (3.5-5.1); Total Protein 6.7 g/dL (6.4-8.9)
--- NOTE | 2018-03-08 02:11 | Emergency Department Note ---
Disposition Clinical Impression: Abdominal pain Qualifiers: Abdominal location: generalized Qualified Code(s): R10.84 - Generalized abdominal pain Disposition: Still a Patient Referrals: Niecy Albarran [Primary Care Provider] - Forms: ED Satisfaction Letter, Work/School Release General Adult HPI - General Chief complaint: ED Abdominal Pain Stated complaint: Pancreatitis Time Seen by Provider: 03/08/18 01:08 Source: patient - History of Present Illness Pain Scale: 8 - Related Data Home Medications Medication Instructions Recorded Confirmed Tizanidine HCl [Zanaflex] 4 mg PO BID 01/15/16 03/01/18 Venlafaxine XR (24 HR) [Effexor Xr] 75 mg PO DAILY 07/25/17 03/01/18 BuPROPion XL (24 HR) [Wellbutrin 300 mg PO DAILY 08/20/17 03/01/18 Xl] Aripiprazole [Abilify] 20 mg PO DAILY 09/08/17 03/01/18 Cholecalciferol (D-3) [Vitamin D] 5,000 unit PO DAILY 09/08/17 03/01/18 Cyanocobalamin (B-12) [Vitamin B12] 1,000 mcg IM QMONTH 09/08/17 03/01/18 Loratadine [Allergy Relief] 10 mg PO DAILY 12/11/17 03/01/18 Ondansetron [Zofran] 4 mg GTUBE Q8H PRN 12/11/17 03/01/18 Lipase/Protease/Amylase [Sivakumar Dr 1 cap PO QIDAC 12/28/17 03/01/18 6,000 Units Capsule] Previous Rx's Medication Instructions Recorded Sucralfate [Carafate] 1 gm PO QIDAC #40 tablet 12/19/17 Allergies Allergy/AdvReac Type Severity Reaction Status Date / Time acetaminophen [From Fioricet] Allergy Hives Verified 03/01/18 21:50 butalbital [From Fioricet] Allergy Hives Verified 03/01/18 21:50 caffeine [From Fioricet] Allergy Hives Verified 03/01/18 21:50 [place] Allergy Hives Verified 03/01/18 21:50 phenytoin [From Dilantin] Allergy Hives Verified 03/01/18 21:50 methocarbamol [From Robaxin] AdvReac Vomiting Verified 03/01/18 21:50 Past Medical History - Past Medical History Medical history: Reports: asthma, COPD, coronary artery disease, GERD, hyperlipidemia, myocardial infarction, renal disease, seizures, TIA Surgical history: Reports: , cholecystectomy, herniorrhaphy, hysterectomy, bariatric surgery Psychiatric history: Reports: anxiety, depression PROCESS ENVIRONMENTAL TECHNICIAN history: Reports: no PROCESS ENVIRONMENTAL TECHNICIAN history - Social History Smoking Status: Never smoker Smokeless Tobacco Status: No Alcohol use: Reports: none Drug use: Reports: none Physical Exam - General General appearance: alert Course - Reevaluation(s) Reevaluation #1: Attestation note I examined this patient and my medical decision-making was reviewed with the emergency medicine resident. I agree with the documented findings, disposition and treatment plan as described except to the extent set forth below. Patient seen with emergency medicine resident Carlos Garcia, Please see a copy of his note for details of the H&P, ED evaluation, management and disposition. I have independently evaluated the patient and confirmed appropriate portions of the history and physical exam. Briefly: A 52-year-old female who presents with abdominal pain nausea and vomiting history of pancreatitis she has a chest port in place that she has been having this for several days of fever chills no contacts or recent travel or medication changes. Abdomen surgically benign she does present dehydrated patient had laboratory studies CBC within normal limits chemistry panel shows elevated creatinine 1.23 which is above normal for first showing some acute renal insufficiency patient blood pressure was 90/60 which is unusual for the patient is getting a liter normal saline a noncontrast abdominal pelvic CT to exclude the possibility of a serious life-threatening intra-abdominal process. Disposition pending. Time: 02:10 Vital Signs Temperature 97.7 F 03/07/18 23:55 Pulse Rate 51 03/07/18 23:55 Respiratory Rate 20 03/07/18 23:55 Blood Pressure 90/60 03/07/18 23:55 O2 Sat by Pulse Oximetry 99 03/07/18 23:55 Temperature 97.7 F 03/07/18 23:55 Pulse Rate 51 03/07/18 23:55 Respiratory Rate 20 03/07/18 23:55 Blood Pressure 90/60 03/07/18 23:55 O2 Sat by Pulse Oximetry 99 03/07/18 23:55 Oxygen Delivery Oxygen Delivery Room Air Medical Decision Making - Lab Data Result diagrams: 03/08/18 01:36 03/08/18 01:36 Lab Results 03/08/18 03/08/18 03/08/18 Range/Units 01:36 01:36 01:40 WBC 6.9 (4.3-11.1) K/mcL RBC 3.57 L (3.82-4.97) M/mcL Hgb 9.6 L (11.5-15.4) g/dL Hct 29.9 L (35.3-44.9) % MCV 83.8 (83.0-100.0) fL MCH 26.9 L (28.0-33.3) pg MCHC 32.1 (31.6-35.5) g/dL RDW 17.5 H (11.5-14.5) % Plt Count 358 (140-400) K/mcL MPV 9.1 L (9.4-12.4) fL Immature Gran % 0.1 (0-4) % Seg Neutrophils % 51.7 % Lymphocytes % 38.4 % Monocytes % 5.6 % Eosinophils % 3.3 % Basophils % 0.9 % Neutrophils # 3.6 (1.6-8.9) K/mcL Lymphocytes # 2.7 (0.6-4.6) K/mcL Monocytes # 0.4 (0.0-1.3) K/mcL Eosinophils # 0.2 (0.0-0.6) K/mcL Basophils # 0.1 (0.0-0.2) K/mcL Sodium 133 L (136-145) mEq/L Potassium 4.1 (3.5-5.1) mEq/L Chloride 99 (98-107) mEq/L Carbon Dioxide 27 (23-29) mEq/L BUN 11 (6-20) mg/dL Creatinine 1.24 H (0.60-1.20) mg/dL Est GFR ( Amer) 55 L (> 60) Est GFR (Non-Af Amer) 46 L (> 60) BUN/Creatinine Ratio 9 (6-26) Glucose 104 (70-105) mg/dL Calculated Osmolality 276 L (280-300) Calcium 8.8 (8.6-10.3) mg/dL Total Bilirubin 0.3 (0.3-1.0) mg/dL Direct Bilirubin 0.0 (0.0-0.2) mg/dL Indirect Bilirubin 0.3 (0.0-1.2) mg/dL AST 39 (13-39) Units/L ALT 40 (7-52) Units/L Alkaline Phosphatase 109 H (34-104) Units/L Serum Total Protein 6.7 (6.4-8.9) g/dL Albumin 4.1 (3.5-5.7) g/dL Globulin 2.6 (2.4-3.5) g/dL Albumin/Globulin Ratio 1.6 (1.1-2.2) Lipase 70 (11-82) Units/L Urine Color Yellow (Yellow) Urine Clarity Clear (Clear) Urine pH 5.5 (5.0-8.0) pH Units Ur Specific [place] 1.022 (1.010-1.025) Urine Protein Negative (Neg-Trace) mg/dL Urine Glucose (UA) Normal (Normal) mg/dL Urine Ketones Negative (Negative) mg/dL Urine Blood Negative (Negative) Urine Nitrite Negative (Negative) Urine Bilirubin Negative (Negative) Urine Urobilinogen Normal (Normal) mg/dL Ur Leukocyte Esterase Negative (Negative) Ur Culture Indicated? NO (NO)
[2018-03-08] MEDS ORDERED: *HR* FentaNYL (PF) 100 MCG/2 ML VIAL IVP ONE (02:57)
[2018-03-08] MEDS ORDERED: Ondansetron ODT 4 MG TAB.RAPDIS SL PRN (07:33)
[2018-03-08] MEDS ORDERED: Naloxone 0.4 MG/ML INJ IVP PRN (07:33)
[2018-03-08] MEDS ORDERED: *HR* FentaNYL (PF) 100 MCG/2 ML VIAL IVP PRN (07:44)
[2018-03-08] MEDS ORDERED: Acetaminophen IV 1,000 MG/100 ML INFUS..BTL IVPB PRN (08:12)
--- NOTE | 2018-03-08 08:34 | Internal Med History&Physical ---
Date of Encounter: 03/08/18 Time of Encounter: 05:00 Internal Medicine - H&P: HPI Admitted From: Home Plans for Post Hospital Care: Home History of present illness: Ms. Astudillo is a 52 year old female Patient presented to the emergency room with epigastric abdominal pain. States that she had been feeling dizzy for the last 2 days as well. She has a history of gastric bypass surgery, which ultimately led to her chronic pancreatitis issues. She also states she has felt nauseous but no vomiting, and no other pain aside from her epigastric area. She has had normal bowel movements and normal urination. Past Med Surg Social Fam HX - Past Medical History Medical history: asthma, COPD, coronary artery disease, GERD, hyperlipidemia, myocardial infarction, renal disease, seizures, TIA Additional medical history: PANCREATITIS. GASTRIC BYPASS Psychiatric history: anxiety, depression - Past Surgical History Surgical History: , cholecystectomy, herniorrhaphy, hysterectomy, other , bariatric surgery Additional surgical history: GASTRIC BYPASS - Social History Smoking Status: Never smoker Smokeless Tobacco Status: No Alcohol use: none Drug use: none - Family History Mother Family Member Ethnicity: Non- Living Status: Hx Family Cardiac Disorders: No Hx Family Respiratory Disorders: No Hx Family Cancer: Yes (Esophageal) Hx Family GI Disorders: No Hx Family Endocrine Disorder: No Hx Family Neuromuscular Disorders: No Hx Family Neurologic Disorders: No Hx Family HEENT Disorders: No Hx Family Autoimmune Disorders: No Father Family Member Ethnicity: Non- Living Status: Hx Family Cancer: Yes (Prostate) Hx Family Neurologic Disorders: Yes (Alzheimer's disease) Brother Family Member Ethnicity: Non- Living Status: Still Living Sister Adopted: No Family Member Ethnicity: Non- Living Status: Cause of : heart attack Hx Family Cardiac Disorders: Yes Hx Family Respiratory Disorders: No Hx Family Cancer: Yes Hx Family GI Disorders: No Hx Family Genitourinary Disorders: No Hx Family Endocrine Disorder: No Hx Family Musculoskeletal Disorders: No Hx Family Neuromuscular Disorders: No Hx Family Neurologic Disorders: No Hx Family HEENT Disorders: No Hx Family Autoimmune Disorders: No Hx Family Reproductive Disorders: No Internal Medicine - H&P: Meds Tizanidine HCl [Zanaflex] 4 mg PO BID 01/15/16 [History] Venlafaxine XR (24 HR) [Effexor Xr] 75 mg PO DAILY 07/25/17 [History] BuPROPion XL (24 HR) [Wellbutrin Xl] 300 mg PO DAILY 08/20/17 [History] Aripiprazole [Abilify] 20 mg PO DAILY 09/08/17 [History] Cholecalciferol (D-3) [Vitamin D] 5,000 unit PO DAILY 09/08/17 [History] Cyanocobalamin (B-12) [Vitamin B12] 1,000 mcg IM QMONTH 09/08/17 [History] Loratadine [Allergy Relief] 10 mg PO DAILY 12/11/17 [History] Ondansetron [Zofran] 4 mg GTUBE Q8H PRN 12/11/17 [History] Sucralfate [Carafate] 1 gm PO QIDAC #40 tablet 12/19/17 [Rx] Lipase/Protease/Amylase [Creon Dr 6,000 Units Capsule] 1 cap PO QIDAC 12/28/17 [ History] Temazepam [Restoril] 15 mg PO HS 03/08/18 [History] 3 Allergy/AdvReac Type Severity Reaction Status Date / Time acetaminophen [From Fioricet] Allergy Hives Verified 03/01/18 21:50 butalbital [From Fioricet] Allergy Hives Verified 03/01/18 21:50 caffeine [From Fioricet] Allergy Hives Verified 03/01/18 21:50 [place] Allergy Hives Verified 03/01/18 21:50 phenytoin [From Dilantin] Allergy Hives Verified 03/01/18 21:50 methocarbamol [From Robaxin] AdvReac Vomiting Verified 03/01/18 21:50 All Systems PM: A 10-system review of systems was performed and is negative for pertinent findings except as documented above in the HPI. - Constitutional Vitals: Temp Pulse Resp BP Pulse Ox 97.7 F 52 17 94/52 98 03/08/18 07:32 03/08/18 07:32 03/08/18 07:32 03/08/18 07:32 03/08/18 07:32 General appearance: Present: mild distress, A&O X 3 - Head Head exam: Present: atraumatic - Eye Eye exam: Present: EOMI, PERRL. Absent: conjunctival injection - Respiratory Respiratory exam: Present: CTAB. Absent: accessory muscle use, chest wall tenderness, respiratory distress - Cardiovascular Cardiovascular exam: Present: RRR. Absent: clicks, rubs, systolic murmur - GI/Abdominal GI/Abdominal exam: Present: normal bowel sounds, soft, tenderness. Absent: distended - Expanded GI/Abdominal Exam GI/Abdominal exam expanded: Absent: ascites - Extremities Exam Extremities exam: Present: full ROM, normal inspection, warm - Neurological Exam Neurological exam: Present: CN II-XII intact, motor sensory deficit, oriented X3 , no focal deficits - Skin Skin exam: Present: dry. Absent: erythema, rash Internal Med - H&P Results - Labs CBC & Chem 7: 03/08/18 01:36 03/08/18 01:36 - Assessment and plan (1) Acute on chronic pancreatitis Current Visit: Yes Status: Acute Assessment and plan: Secondary to gastric bypass surgery. Pain localized to the epigastric area. Symptoms began about 2 days ago. Patient denies alcohol use and also does not smoke. Her condition is likely mild, lipase is 70 and she was able to sleep prior to my arrival. She received IV fluids in the emergency room we will continue IV fluids while on the floor We will start the patient on 25 g of fentanyl IV when necessary for pain control as she is nothing by mouth. As her condition improves we can start adding by mouth pain medication. Acute patient nothing by mouth until her pain starts to improve then we can gradually advance her diet. (2) Abdominal pain Current Visit: Yes Status: Acute Assessment and plan: Likely secondary to acute on chronic pancreatitis. Treating as above. Qualifiers: Abdominal location: epigastric Qualified Code(s): R10.13 - Epigastric pain (3) Nausea Current Visit: Yes Status: Acute Assessment and plan: Patient has had nausea for the last 2 days, likely secondary to her pancreatitis. She received Phenergan in the ER, we can try sublingual Zofran to help control her nausea. 1 to be careful with IV Phenergan due to possible skin necrosis with this medication. Keep patient nothing by mouth until nausea and pain improve, then advance diet gradually. (4) Anxiety and depression Current Visit: No Status: Chronic Assessment and plan: Chronic, continue patient's home meds when she is able to take in by mouth medicines. (5) Exocrine pancreatic insufficiency Current Visit: No Status: Chronic Assessment and plan: Patient takes a lipase/protease/amylase capsule, however because she is nothing by mouth we will hold this medication for now. Restart medication with patient improves and is able to medications by mouth. (6) Dizziness Current Visit: Yes Status: Acute Assessment and plan: Likely secondary to dehydration in the being able to eat due to her abdominal pain. Improved after patient received fluids. Continue to monitor, expected to improve as we treat her pancreatitis. (7) Dehydration Current Visit: No Status: Acute Assessment and plan: Secondary to abdominal pain and not being able to eat or drink. IV fluids given for her pancreatitis Resume oral hydration when patient's pain and nausea improve. - Time Spent With Patient Total time spent is greater than 50% in coordination of care (as documented) at patient's floor/unit and/or counseling patient: Greater than 35 minutes
[2018-03-08 08:53] LABS: Hematocrit 29.3 % (35.3-44.9); Hemoglobin 9.6 g/dL (11.5-15.4); Mean Corpuscular HGB Conc 32.8 g/dL (31.6-35.5); Mean Corpuscular Hemoglobin 27.7 pg (28.0-33.3); Mean Corpuscular Volume 84.4 fL (83.0-100.0); Mean Platelet Volume 8.9 fL (9.4-12.4); Platelet Count 307 K/mcL (140-400); Red Blood Count 3.47 M/mcL (3.82-4.97); Red Cell Distribution Width 17.5 % (11.5-14.5)
[2018-03-08 09:10] LABS: BUN/Creatinine Ratio 9 (6-26); Blood Urea Nitrogen 9 mg/dL (6-20); Calcium 8.8 mg/dL (8.6-10.3); Carbon Dioxide 27 mEq/L (23-29); Chloride 105 mEq/L (98-107); Glucose 103 mg/dL (70-105); Osmolality,Calculated 285 (280-300); Potassium 4.1 mEq/L (3.5-5.1); Sodium 138 mEq/L (136-145); eGFR For African Americans > 60 (> 60); eGFR For Non-African Americans 56 (> 60)
[2018-03-08] MEDS ORDERED: Acetaminophen 325 MG TABLET PO PRN (09:16)
[2018-03-08] MEDS: Promethazine 12.5 MG in 0.9 % Sodium Chloride 50 ML IVPB PRN ×3 (09:20→22:19)
--- NOTE | 2018-03-08 10:55 | General Surgery Consult Note ---
<Jed Claire R - Last Filed: 03/08/18 10:57> Date of Encounter: 03/08/18 Time of Encounter: 08:10 Assessment and Plan (1) Intussusception Current Visit: Yes Status: Acute Incidental finding on CT. No evidence of his obstruction. Patient passing gas and having BMs. Recommend continuing supportive care and pain management. Recommend reestablishing with her gastric bypass surgeon once she leaves the hospital. Most intussusceptions are incidental and will resolve spontaneously No acute surgical need at this time - anticipate sign-off pending Attending Attestation - reconsult if needed (2) Intractable nausea and vomiting Current Visit: Yes Status: Acute Likely secondary to chronic pancreatitis. Management per primary team Qualifiers: Vomiting type: unspecified Qualified Code(s): R11.2 - Nausea with vomiting , unspecified History of Present Illness Consult date: 03/08/18 Reason for consult: other (small bowel intusseption without obstruction) Requesting physician: Carlos Garcia History of present illness: Ms. Astudillo is a 52 year old female with PMH of chronic pancreatitis, CAD, COPD, CKD, previous gastric by-pass, , cholecystectomy, and hysterectomy, presented to [facility] with sharp, stabbing epigastric abdominal pain associated with nausea and vomiting. She had gastric bypass surgery in 2015 at [facility], and has chronic nausea since that time. She has a port in her right chest wall that she uses to give herself IV Zofran at home. This has not been controlling her nausea. She reports that she is passing gas and is having normal bowel movements. She denies fevers, chills, hematemesis, hematochezia, or melena. CT conducted the emergency department shows incidental 3-4 cm segment of small bowel intussusception without evidence of obstruction. Past Med Surg Social Fam HX - Past Medical History Medical history: asthma, COPD, coronary artery disease, GERD, hyperlipidemia, myocardial infarction, renal disease, seizures, TIA Additional medical history: PANCREATITIS. GASTRIC BYPASS Psychiatric history: anxiety, depression - Past Surgical History Surgical History: , cholecystectomy, herniorrhaphy, hysterectomy, other , bariatric surgery Additional surgical history: GASTRIC BYPASS - Social History Smoking Status: Never smoker Smokeless Tobacco Status: No Alcohol use: none Drug use: none - Family History Mother Family Member Ethnicity: Non- Living Status: Hx Family Cardiac Disorders: No Hx Family Respiratory Disorders: No Hx Family Cancer: Yes (Esophageal) Hx Family GI Disorders: No Hx Family Endocrine Disorder: No Hx Family Neuromuscular Disorders: No Hx Family Neurologic Disorders: No Hx Family HEENT Disorders: No Hx Family Autoimmune Disorders: No Father Family Member Ethnicity: Non- Living Status: Hx Family Cancer: Yes (Prostate) Hx Family Neurologic Disorders: Yes (Alzheimer's disease) Brother Family Member Ethnicity: Non- Living Status: Still Living Sister Adopted: No Family Member Ethnicity: Non- Living Status: Cause of : heart attack Hx Family Cardiac Disorders: Yes Hx Family Respiratory Disorders: No Hx Family Cancer: Yes Hx Family GI Disorders: No Hx Family Genitourinary Disorders: No Hx Family Endocrine Disorder: No Hx Family Musculoskeletal Disorders: No Hx Family Neuromuscular Disorders: No Hx Family Neurologic Disorders: No Hx Family HEENT Disorders: No Hx Family Autoimmune Disorders: No Hx Family Reproductive Disorders: No Medications and Allergies Tizanidine HCl [Zanaflex] 4 mg PO BID 01/15/16 [History] Venlafaxine XR (24 HR) [Effexor Xr] 75 mg PO DAILY 07/25/17 [History] BuPROPion XL (24 HR) [Wellbutrin Xl] 300 mg PO DAILY 08/20/17 [History] Aripiprazole [Abilify] 20 mg PO DAILY 09/08/17 [History] Cholecalciferol (D-3) [Vitamin D] 5,000 unit PO DAILY 09/08/17 [History] Cyanocobalamin (B-12) [Vitamin B12] 1,000 mcg IM QMONTH 09/08/17 [History] Loratadine [Allergy Relief] 10 mg PO DAILY 12/11/17 [History] Ondansetron [Zofran] 4 mg PO Q8H PRN 12/11/17 [History] Lipase/Protease/Amylase [Creon Dr 6,000 Units Capsule] 1 cap PO QIDAC 12/28/17 [ History] Montelukast [Singulair] 10 mg PO DAILY 03/08/18 [History] Niacin [Plain Niacin] 500 mg PO DAILY 03/08/18 [History] Pantoprazole Sodium 40 mg PO DAILY 03/08/18 [History] Ranitidine HCl [[employer]] 150 mg PO BID 03/08/18 [History] Temazepam [Restoril] 30 mg PO HS 03/08/18 [History] 3 Allergy/AdvReac Type Severity Reaction Status Date / Time acetaminophen [From Fioricet] Allergy Hives Verified 03/01/18 21:50 butalbital [From Fioricet] Allergy Hives Verified 03/01/18 21:50 caffeine [From Fioricet] Allergy Hives Verified 03/01/18 21:50 [place] Allergy Hives Verified 03/01/18 21:50 phenytoin [From Dilantin] Allergy Hives Verified 03/01/18 21:50 methocarbamol [From Robaxin] AdvReac Vomiting Verified 03/01/18 21:50 Review of Systems All systems PM: reviewed and no additional remarkable complaints except as stated All systems PM: The remainder of the systems were reviewed and are negative General Surgery Exam Initial Vital Signs Temp Pulse Resp BP Pulse Ox 97.7 F 51 20 90/60 99 03/07/18 23:55 03/07/18 23:55 03/07/18 23:55 03/07/18 23:55 03/07/18 23:55 - General physical appearance well developed, well nourished, no distress - Respiratory normal expansion, normal respiratory effort, clear to auscultation - Cardiovascular Cardiovascular exam: Present: RRR, 15, 16 - Abdomen Abdomen general surgery: Present: bowel sounds present, soft, tender. Absent: distended, guarding, rebound Abdominal Tenderness: Present: epigastic - Integumentary Integumentary general surgery: Present: warm and dry, no abnormal pigmentation - Neurologic Present: CN 2-12 grossly intact, normal coordination - Psychiatric Psychiatric general surgery: Present: appropriate, oriented to person, oriented to place, oriented to time, speech is normal, memory intact Exam Initial Vital Signs Temp Pulse Resp BP Pulse Ox 97.7 F 51 20 90/60 99 03/07/18 23:55 03/07/18 23:55 03/07/18 23:55 03/07/18 23:55 03/07/18 23:55 Results - Labs 03/08/18 07:44 03/08/18 07:44 Abnormal lab results RBC 3.47 M/mcL (3.82-4.97) L 03/08/18 07:44 Hgb 9.6 g/dL (11.5-15.4) L 03/08/18 07:44 Hct 29.3 % (35.3-44.9) L 03/08/18 07:44 MCH 27.7 pg (28.0-33.3) L 03/08/18 07:44 RDW 17.5 % (11.5-14.5) H 03/08/18 07:44 MPV 8.9 fL (9.4-12.4) L 03/08/18 07:44 Est GFR (Non-Af Amer) 56 (> 60) L 03/08/18 07:44 Alkaline Phosphatase 109 Units/L (34-104) H 03/08/18 01:36 All other labs normal. Consult Discharge Plan - Plan Referrals: Niecy Albarran [Primary Care Provider] - <Ramses Bell - Last Filed: 03/08/18 12:25> Date of Encounter: 03/08/18 Review of Systems All systems PM: The remainder of the systems were reviewed and are negative General Surgery Exam Initial Vital Signs Temp Pulse Resp BP Pulse Ox 97.7 F 51 20 90/60 99 03/07/18 23:55 03/07/18 23:55 03/07/18 23:55 03/07/18 23:55 03/07/18 23:55 Exam Initial Vital Signs Temp Pulse Resp BP Pulse Ox 97.7 F 51 20 90/60 99 03/07/18 23:55 03/07/18 23:55 03/07/18 23:55 03/07/18 23:55 03/07/18 23:55 Results - Labs 03/08/18 07:44 03/08/18 07:44 Abnormal lab results RBC 3.47 M/mcL (3.82-4.97) L 03/08/18 07:44 Hgb 9.6 g/dL (11.5-15.4) L 03/08/18 07:44 Hct 29.3 % (35.3-44.9) L 03/08/18 07:44 MCH 27.7 pg (28.0-33.3) L 03/08/18 07:44 RDW 17.5 % (11.5-14.5) H 03/08/18 07:44 MPV 8.9 fL (9.4-12.4) L 03/08/18 07:44 Est GFR (Non-Af Amer) 56 (> 60) L 03/08/18 07:44 Alkaline Phosphatase 109 Units/L (34-104) H 03/08/18 01:36 All other labs normal. - Attending Attestation I have personally seen and examined the patient. I have reviewed pertinent labs , imaging, progress notes, including this one. I agree with the above assessment and plan and wish to include the following... 52F admitted for pancreatitis with non symptomatic, incidental finding of small bowel to small bowel intussusception; no evidence of obstruction; no acute surgery; continue care for pancreatitis; please call with any questions or new concerns
[2018-03-08] MEDS: *HR* OxyCODONE Immed Rel 5 MG TABLET PO PRN ×2 (12:16→19:34)
[2018-03-08] MEDS ORDERED: Cyanocobalamin (B-12) 1,000 MCG/ML VIAL IM SCH (16:30)
[2018-03-08] MEDS: *HR* Heparin 5,000 UNIT/ML VIAL SQ SCH (16:38)
[2018-03-08] MEDS: Pantoprazole 40 MG VIAL IVP SCH (16:38)
[2018-03-08] MEDS: Temazepam 15 MG CAPSULE PO SCH (20:34)
[2018-03-08] MEDS: tiZANidine 4 MG TABLET PO SCH (20:34)
[2018-03-09] MEDS: Promethazine 12.5 MG in 0.9 % Sodium Chloride 50 ML IVPB PRN ×2 (04:43→11:29)
[2018-03-09] MEDS: *HR* Heparin 5,000 UNIT/ML VIAL SQ SCH ×2 (04:58→17:57)
[2018-03-09] MEDS: *HR* OxyCODONE Immed Rel 5 MG TABLET PO PRN ×2 (06:54→15:22)
[2018-03-09] MEDS: ARIPiprazole 10 MG TABLET PO SCH (09:54)
[2018-03-09] MEDS: Venlafaxine XR (24 HR) 37.5 MG CAP.ER.24H PO SCH (09:55)
[2018-03-09] MEDS: BuPROPion XL (24 HR) 150 MG TABLET PO SCH (09:55)
[2018-03-09] MEDS: tiZANidine 4 MG TABLET PO SCH ×2 (09:55→20:17)
[2018-03-09] MEDS: Niacin (24 HR) 500 MG TAB.ER.24H PO SCH (09:55)
[2018-03-09] MEDS: Cholecalciferol (D-3) 1,000 UNIT TABLET PO SCH (09:55)
[2018-03-09] MEDS: Pantoprazole 40 MG VIAL IVP SCH (09:55)
[2018-03-09 12:42] LABS: Basophils # 0.1 K/mcL (0.0-0.2); Eosinophils # 0.3 K/mcL (0.0-0.6); Eosinophils % 3.9 %; Hematocrit 35.6 % (35.3-44.9); Immature Granulocytes % 0.3 % (0-4); Lymphocytes # 2.4 K/mcL (0.6-4.6); Lymphocytes % 34.2 %; Mean Corpuscular HGB Conc 32.3 g/dL (31.6-35.5); Mean Corpuscular Hemoglobin 27.1 pg (28.0-33.3); Mean Platelet Volume 9.3 fL (9.4-12.4); Monocytes # 0.4 K/mcL (0.0-1.3); Monocytes % 5.9 %; Neutrophils # 3.8 K/mcL (1.6-8.9); Platelet Count 407 K/mcL (140-400); Red Blood Count 4.24 M/mcL (3.82-4.97); Red Cell Distribution Width 17.6 % (11.5-14.5); Segmented Neutrophils % 54.7 %
[2018-03-09 12:53] LABS: Hemoglobin 11.5 g/dL (11.5-15.4)
[2018-03-09 13:04] LABS: BUN/Creatinine Ratio 10 (6-26); Blood Urea Nitrogen 10 mg/dL (6-20); Calcium 10.1 mg/dL (8.6-10.3); Carbon Dioxide 30 mEq/L (23-29); Chloride 100 mEq/L (98-107); Glucose 80 mg/dL (70-105); Osmolality,Calculated 286 (280-300); Potassium 3.5 mEq/L (3.5-5.1); Sodium 139 mEq/L (136-145); eGFR For African Americans > 60 (> 60); eGFR For Non-African Americans 55 (> 60)
[2018-03-09] MEDS: Ringers Solution, Lactated 1,000 ML IVC SCH (15:22)
[2018-03-09] MEDS ORDERED: Promethazine 12.5 MG in 0.9 % Sodium Chloride 50 ML IVPB PRN (15:36)
--- NOTE | 2018-03-09 15:57 | Internal Med Progress Note ---
Date of Encounter: 03/09/18 Time of Encounter: 11:35 - Assessment and plan (1) Acute pancreatitis Current Visit: Yes Status: Acute Assessment and plan: Recurrent pancreatitis, unclear etiology. CT abdomen/pelvis showed incidental small bowel intussusception without obstruction. Improving clinically. Start low-fat clear liquid diet. Continue IV hydration, supportive care with pain control and when necessary antiemetics. Monitor renal function closely. Qualifiers: Pancreatitis type: unspecified pancreatitis type Acute pancreatitis complication: no infection or necrosis Qualified Code(s): K85.90 - Acute pancreatitis without necrosis or infection, unspecified (2) Intussusception Current Visit: Yes Status: Acute Assessment and plan: Surgery consult appreciated. Intussusception resolves spontaneously. No acute surgical need at this time, recommend to follow up with her gastric bypass surgeon after discharge. Continue supportive care. (3) Anxiety and depression Current Visit: Yes Status: Chronic Assessment and plan: Patient is noted to be on multiple psychiatric medications for anxiety and depression. Resume home meds. (4) CAD (coronary artery disease) Current Visit: Yes Status: Chronic Qualifiers: Coronary Disease-Associated Artery/Lesion type: [place] artery [place] vs. transplanted heart: [place] heart Associated angina: without angina Qualified Code(s): I25.10 - Atherosclerotic heart disease of [place] coronary artery without angina pectoris (5) CKD (chronic kidney disease) Current Visit: Yes Status: Chronic Assessment and plan: Slight elevation in serum creatinine from baseline, related to dehydration and vomiting. Improving with IV hydration. Qualifiers: Chronic kidney disease stage: stage 3 (moderate) Qualified Code(s): N18.3 - Chronic kidney disease, stage 3 (moderate) (6) COPD (chronic obstructive pulmonary disease) Current Visit: Yes Status: Chronic Assessment and plan: Not in acute exacerbation. Continue when necessary breathing treatments and supplemental oxygen. Qualifiers: COPD type: unspecified COPD Qualified Code(s): J44.9 - Chronic obstructive pulmonary disease, unspecified (7) GERD (gastroesophageal reflux disease) Current Visit: Yes Status: Chronic Qualifiers: Esophagitis presence: esophagitis presence not specified Qualified Code(s) : K21.9 - Gastro-esophageal reflux disease without esophagitis (8) Seizure disorder Current Visit: Yes Status: Chronic - Time Spent With Patient Total time spent is greater than 50% in coordination of care (as documented) at patient's floor/unit and/or counseling patient: - Subjective Interval history: Continues to have some abdominal pain and nausea, however improved since yesterday. Agreeable to trying clear liquids today. No fever, chills, chest pain, shortness of breath. No vomiting, does have bowel movements. - Constitutional Vitals: Temp Pulse Resp BP Pulse Ox 97.8 F 64 16 94/64 97 03/09/18 11:11 03/09/18 11:11 03/09/18 11:11 03/09/18 11:11 03/09/18 11:11 General appearance: Present: A&O X 3, answers questions appropriately - Respiratory Respiratory exam: Present: CTAB. Absent: accessory muscle use, rales, rhonchi, wheezes - Cardiovascular Cardiovascular exam: Present: RRR, +S1, +S2. Absent: diastolic murmur, gallop, rubs, systolic murmur - GI/Abdominal GI/Abdominal exam: Present: normal bowel sounds, soft (mild tenderness in epigastrium), no peritoneal signs. Absent: distended, tenderness - Extremities Exam Extremities exam: Present: full ROM, warm, radial pulses palpable and symmetrical. Absent: calf tenderness, cyanotic, pedal edema Internal Medicine: Result - Labs CBC & Chem 7: 03/09/18 12:05 03/09/18 12:05 Labs: Short CBC 03/09/18 Range/Units 12:05 WBC 6.9 (4.3-11.1) K/mcL Hgb 11.5 D (11.5-15.4) g/dL Hct 35.6 (35.3-44.9) % Plt Count 407 H (140-400) K/mcL Neutrophils # 3.8 (1.6-8.9) K/mcL BMP 03/09/18 12:05 Sodium 139 Potassium 3.5 Chloride 100 Carbon Dioxide 30 H BUN 10 Creatinine 1.05 Glucose 80 Calcium 10.1 Consult Discharge Plan - Plan Referrals: Niecy Albarran [Primary Care Provider] -
[2018-03-09] MEDS: *HR* Promethazine 25 MG/ML VIAL IVP PRN ×2 (17:57→23:59)
[2018-03-09] MEDS: Temazepam 15 MG CAPSULE PO SCH (20:17)
[2018-03-10] MEDS: Ringers Solution, Lactated 1,000 ML IVC SCH
[2018-03-10] MEDS: *HR* OxyCODONE Immed Rel 5 MG TABLET PO PRN ×5 (00:04→20:46)
[2018-03-10] MEDS: *HR* Heparin 5,000 UNIT/ML VIAL SQ SCH ×2 (06:26→17:16)
[2018-03-10] MEDS: *HR* Promethazine 25 MG/ML VIAL IVP PRN ×3 (06:27→19:13)
[2018-03-10] MEDS: Niacin (24 HR) 500 MG TAB.ER.24H PO SCH (07:45)
[2018-03-10] MEDS: tiZANidine 4 MG TABLET PO SCH ×2 (07:45→20:46)
[2018-03-10] MEDS: Venlafaxine XR (24 HR) 37.5 MG CAP.ER.24H PO SCH (07:45)
[2018-03-10] MEDS: Cholecalciferol (D-3) 1,000 UNIT TABLET PO SCH (07:45)
[2018-03-10] MEDS: ARIPiprazole 10 MG TABLET PO SCH (07:46)
[2018-03-10] MEDS: BuPROPion XL (24 HR) 150 MG TABLET PO SCH (07:46)
[2018-03-10] MEDS: Temazepam 15 MG CAPSULE PO SCH (20:45)
--- NOTE | 2018-03-10 20:52 | Internal Med Progress Note ---
Date of Encounter: 03/10/18 Time of Encounter: 20:52 - Assessment and plan (1) Acute recurrent pancreatitis Current Visit: Yes Status: Acute (2) Intussusception Current Visit: Yes Status: Acute (3) GERD (gastroesophageal reflux disease) Current Visit: Yes Status: Chronic Qualifiers: Esophagitis presence: esophagitis presence not specified Qualified Code(s) : K21.9 - Gastro-esophageal reflux disease without esophagitis (4) Chronic pain Current Visit: Yes Status: Acute - Time Spent With Patient Total time spent is greater than 50% in coordination of care (as documented) at patient's floor/unit and/or counseling patient: - Constitutional Vitals: Temp Pulse Resp BP Pulse Ox 98.4 F 78 15 170/93 99 03/10/18 19:13 03/10/18 19:13 03/10/18 19:13 03/10/18 19:13 03/10/18 19:13 General appearance: Present: A&O X 3, answers questions appropriately Internal Medicine: Result - Labs CBC & Chem 7: 03/09/18 12:05 03/09/18 12:05 Consult Discharge Plan - Plan Referrals: Niecy Albarran [Primary Care Provider] -
[2018-03-10] MEDS ORDERED: 0.9 % Sodium Chloride 1,000 ML IVC ONE (23:16)
[2018-03-10] MEDS ORDERED: 0.9 % Sodium Chloride 1,000 ML ONE (23:19)
[2018-03-11] MEDS ORDERED: Ondansetron 4 MG/2 ML VIAL ONE (01:18)
[2018-03-11] MEDS: Ondansetron 4 MG/2 ML VIAL IVP PRN ×4 (01:37→17:05)
[2018-03-11] MEDS: 0.9 % Sodium Chloride 1,000 ML IVC SCH ×2 (01:37→12:46)
[2018-03-11] MEDS: *HR* Heparin 5,000 UNIT/ML VIAL SQ SCH ×2 (06:08→17:02)
[2018-03-11] MEDS: *HR* OxyCODONE Immed Rel 5 MG TABLET PO PRN ×2 (09:08→15:17)
[2018-03-11] MEDS: Niacin (24 HR) 500 MG TAB.ER.24H PO SCH (09:08)
[2018-03-11] MEDS: Cholecalciferol (D-3) 1,000 UNIT TABLET PO SCH (09:09)
[2018-03-11] MEDS: BuPROPion XL (24 HR) 150 MG TABLET PO SCH (09:09)
[2018-03-11] MEDS: tiZANidine 4 MG TABLET PO SCH (09:09)
[2018-03-11] MEDS: ARIPiprazole 10 MG TABLET PO SCH (09:09)
[2018-03-11] MEDS: Venlafaxine XR (24 HR) 37.5 MG CAP.ER.24H PO SCH (09:09)
[2018-03-11] MEDS ORDERED: 0.9 % Sodium Chloride 1,000 ML IVC SCH (13:01)
[2018-03-11 17:12] VITALS: BP 102/64
--- NOTE | 2018-03-11 19:05 | Discharge Summary ---
Orders not resulted at time of discharge: Pending orders 03/12/18 09:00 MRSA Surveillance Screen [MOLMIC] Routine Date of Encounter: 03/11/18 Time of Encounter: 18:59 - Discharge Diagnosis (1) Acute recurrent pancreatitis Priority: Primary Status: Acute (2) Intussusception Priority: Secondary Status: Resolved (3) GERD (gastroesophageal reflux disease) Priority: Secondary Status: Chronic Qualifiers: Esophagitis presence: esophagitis presence not specified Qualified Code(s) : K21.9 - Gastro-esophageal reflux disease without esophagitis (4) Chronic pain Priority: Secondary Status: Chronic Hospital course: Ms. Astudillo is a 52 year old female Discharge discussed with: patient, family, nurse, case management - Time Spent with Patient Total time spent providing and/or coordinating discharge services: Greater than 30 minutes (40 MINUTES) - Discharge Medications Home Medications: Tizanidine HCl [Zanaflex] 4 mg PO BID 01/15/16 [History] Venlafaxine XR (24 HR) [Effexor Xr] 75 mg PO DAILY 07/25/17 [History] BuPROPion XL (24 HR) [Wellbutrin Xl] 300 mg PO DAILY 08/20/17 [History] Aripiprazole [Abilify] 20 mg PO DAILY 09/08/17 [History] Cholecalciferol (D-3) [Vitamin D] 5,000 unit PO DAILY 09/08/17 [History] Cyanocobalamin (B-12) [Vitamin B12] 1,000 mcg IM QMONTH 09/08/17 [History] Loratadine [Allergy Relief] 10 mg PO DAILY 12/11/17 [History] Ondansetron [Zofran] 4 mg PO Q8H PRN 12/11/17 [History] Lipase/Protease/Amylase [Creon Dr 6,000 Units Capsule] 1 cap PO QIDAC 12/28/17 [ History] Montelukast [Singulair] 10 mg PO DAILY 03/08/18 [History] Niacin [Plain Niacin] 500 mg PO DAILY 03/08/18 [History] Pantoprazole Sodium 40 mg PO DAILY 03/08/18 [History] Ranitidine HCl [Acid Traditional Chinese Herbalist] 150 mg PO BID 03/08/18 [History] Temazepam [Restoril] 30 mg PO HS 03/08/18 [History] Allergies/Adverse Reactions: 3 Allergy/AdvReac Type Severity Reaction Status Date / Time acetaminophen [From Fioricet] Allergy Hives Verified 03/01/18 21:50 butalbital [From Fioricet] Allergy Hives Verified 03/01/18 21:50 caffeine [From Fioricet] Allergy Hives Verified 03/01/18 21:50 [place] Allergy Hives Verified 03/01/18 21:50 phenytoin [From Dilantin] Allergy Hives Verified 03/01/18 21:50 methocarbamol [From Robaxin] AdvReac Vomiting Verified 03/01/18 21:50 Date of admission: 03/08/18 10:37 Primary care physician: Niecy Albarran Discharging clinician: Riki Diamond Anticipated date of discharge: 03/11/18 - Constitutional Vitals: Temp Pulse Resp BP Pulse Ox 98.4 F 87 16 102/64 99 03/11/18 16:37 03/11/18 16:37 03/11/18 16:37 03/11/18 17:11 03/11/18 16:37 General appearance: Present: A&O X 3, answers questions appropriately - Respiratory Respiratory exam: Present: CTAB. Absent: accessory muscle use, rales, rhonchi, wheezes - Cardiovascular Cardiovascular exam: Present: RRR, +S1, +S2. Absent: diastolic murmur, gallop, rubs, systolic murmur - GI/Abdominal GI/Abdominal exam: Present: normal bowel sounds, soft, no peritoneal signs. Absent: distended, tenderness - Patient Status Disposition: Home, Self-Care Condition: Good Functional capacity at discharge: independent ambulation Overall status at discharge: patient is back to baseline - Discharge Instructions Follow Up With: Niecy Albarran [Primary Care Provider] - - Diet and Activity Activity: resume usual activities as tolerated - VTE Deep Vein Thrombosis/Pulmonary Embolism Present on Admission: No
--- NOTE | 2018-03-11 19:20 | Physician Discharge Referral ---
Home Health/Hosp Referral Info Transfer to: Home Health Attending Provider: Marleni LIZARRAGA Provider in Charge Post Discharge: PCP - Diagnosis (1) Acute recurrent pancreatitis Status: Acute (2) Intussusception Status: Resolved (3) GERD (gastroesophageal reflux disease) Status: Chronic (4) Chronic pain Status: Chronic - Respiratory Orders Smoking Cessation: Smoking cessation has been advised. For more information, call the [place] Tobacco Quit Line at 4-465-HCFM-NOW. - Transfer Medications Home Medications: Tizanidine HCl [Zanaflex] 4 mg PO BID 01/15/16 [History] Venlafaxine XR (24 HR) [Effexor Xr] 75 mg PO DAILY 07/25/17 [History] BuPROPion XL (24 HR) [Wellbutrin Xl] 300 mg PO DAILY 08/20/17 [History] Aripiprazole [Abilify] 20 mg PO DAILY 09/08/17 [History] Cholecalciferol (D-3) [Vitamin D] 5,000 unit PO DAILY 09/08/17 [History] Cyanocobalamin (B-12) [Vitamin B12] 1,000 mcg IM QMONTH 09/08/17 [History] Loratadine [Allergy Relief] 10 mg PO DAILY 12/11/17 [History] Ondansetron [Zofran] 4 mg PO Q8H PRN 12/11/17 [History] Lipase/Protease/Amylase [Creon Dr 6,000 Units Capsule] 1 cap PO QIDAC 12/28/17 [ History] Montelukast [Singulair] 10 mg PO DAILY 03/08/18 [History] Niacin [Plain Niacin] 500 mg PO DAILY 03/08/18 [History] Pantoprazole Sodium 40 mg PO DAILY 03/08/18 [History] Ranitidine HCl [Acid Metal Numerical Tool Programmer] 150 mg PO BID 03/08/18 [History] Temazepam [Restoril] 30 mg PO HS 03/08/18 [History] Allergies/Adverse Reactions: 3 Allergy/AdvReac Type Severity Reaction Status Date / Time acetaminophen [From Fioricet] Allergy Hives Verified 03/01/18 21:50 butalbital [From Fioricet] Allergy Hives Verified 03/01/18 21:50 caffeine [From Fioricet] Allergy Hives Verified 03/01/18 21:50 [place] Allergy Hives Verified 03/01/18 21:50 phenytoin [From Dilantin] Allergy Hives Verified 03/01/18 21:50 methocarbamol [From Robaxin] AdvReac Vomiting Verified 03/01/18 21:50 Certification: Further, I certify that my clinical findings support that this patient is homebound (i.e. absences from home require considerable and taxing effort and are for medical reasons or episcopal services or infrequently or short duration when for other reasons) because: Homebound Reason: Leaving home requires considerable and taxing effort due to condition Attestation: My signature below is to certify that this patient is under my care and that I, or nurse practitioner, or a physician's college sports assistant working with me, has a face-to -face encounter with this patient.
== END 2018-03-11 19:29 | disposition home or self-care (01) | DRG 282 ==
LOC: 2ANU 23:46 → EMEROO 23:46 → SUATTDRO 03-08 04:06 → 2ANU 03-08 04:14 → SUATTDRO 03-08 10:37
PROVIDERS: ADMIT Pediatrics; ATTEND Internal Medicine

== ENCOUNTER 2018-03-20 15:10 | Inpatient (IN) ==
[2018-03-20 15:33] LABS: Bilirubin,Urine Negative (Negative); Blood,Urine Negative (Negative); Clarity,Urine Clear (Clear); Color,Urine Yellow (Yellow); Glucose,Urine (UA) Normal (Normal); Ketones,Urine Negative (Negative); Leukocyte Esterase,Urine Negative (Negative); Nitrite,Urine Negative (Negative); Protein,Urine Negative (Neg-Trace); Specific Gravity,Urine 1.016 (1.010-1.025); Urobilinogen,Urine Normal (Normal)
[2018-03-20] MEDS ORDERED: Ondansetron 4 MG/2 ML VIAL IVP ONE (15:41)
[2018-03-20] MEDS ORDERED: 0.9 % Sodium Chloride 1,000 ML IVC ONE ×2 (15:41→20:51)
[2018-03-20] MEDS ORDERED: *HR* Nalbuphine 10 MG/ML AMPUL IVP STA (15:42)
[2018-03-20] MEDS ORDERED: Isovue-370 500 ML INFUS..BTL IV ONE (15:42)
[2018-03-20 16:03] LABS: Basophils # 0.1 K/mcL (0.0-0.2); Basophils % 0.9 %; Eosinophils # 0.1 K/mcL (0.0-0.6); Eosinophils % 0.7 %; Hematocrit 35.3 % (35.3-44.9); Hemoglobin 11.7 g/dL (11.5-15.4); Immature Granulocytes % 0.5 % (0-4); Mean Corpuscular HGB Conc 33.1 g/dL (31.6-35.5); Mean Corpuscular Hemoglobin 28.1 pg (28.0-33.3); Mean Corpuscular Volume 84.7 fL (83.0-100.0); Monocytes # 0.5 K/mcL (0.0-1.3); Monocytes % 4.6 %; Platelet Count 423 K/mcL (140-400); Red Blood Count 4.17 M/mcL (3.82-4.97); Red Cell Distribution Width 16.2 % (11.5-14.5); Segmented Neutrophils % 74.3 %
--- NOTE | 2018-03-20 16:06 | Emergency Department Note ---
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 Associated with nausea and vomiting. She reports 6 episodes of vomiting (some green emesis, some just dry heaves) in the past day. Last BM 2 days ago. She denies any fever, chest pain, dyspnea, or urinary symptoms. She says her symptoms are similar to previous bouts of pancreatitis. Pt Subjective Complaint: abdominal pain Onset (ago): day(s) (5) Consistency: Worsening Location: epigastric Pain Severity: moderate Pain Scale: 8 Quality: sharp Radiation: back Migration to: no migration Improves with: nothing Worsens with: eating Context: history of similar episodes Associated symptoms: Reports: nausea, vomiting. Denies: diarrhea, fever, constipation, dysuria, hematemesis, hematochezia, melena, hematuria - Related Data Home Medications Medication Instructions Recorded Confirmed Tizanidine HCl [Zanaflex] 4 mg PO BID 01/15/16 03/20/18 Venlafaxine XR (24 HR) [Effexor Xr] 75 mg PO DAILY 07/25/17 03/20/18 BuPROPion XL (24 HR) [Wellbutrin 300 mg PO DAILY 08/20/17 03/20/18 Xl] Aripiprazole [Abilify] 20 mg PO DAILY 09/08/17 03/20/18 Cholecalciferol (D-3) [Vitamin D] 5,000 unit PO DAILY 09/08/17 03/20/18 Cyanocobalamin (B-12) [Vitamin B12] 1,000 mcg IM QMONTH 09/08/17 03/20/18 Loratadine [Allergy Relief] 10 mg PO DAILY 12/11/17 03/20/18 Ondansetron [Zofran] 4 mg PO Q8H PRN 12/11/17 03/20/18 Lipase/Protease/Amylase [Siv[place] [place] 1 cap PO QIDAC 12/28/17 03/20/18 6,000 Units Capsule] Montelukast [Singulair] 10 mg PO DAILY 03/08/18 03/20/18 Niacin [Plain Niacin] 500 mg PO DAILY 03/08/18 03/20/18 Pantoprazole Sodium 40 mg PO DAILY 03/08/18 03/20/18 Ranitidine HCl [Acid Cleater] 150 mg PO BID 03/08/18 03/20/18 Temazepam [Restoril] 30 mg PO HS 03/08/18 03/20/18 Allergies Allergy/AdvReac Type Severity Reaction Status Date / Time acetaminophen [From Fioricet] Allergy Hives Verified 03/20/18 15:14 butalbital [From Fioricet] Allergy Hives Verified 03/20/18 15:14 caffeine [From Fioricet] Allergy Hives Verified 03/20/18 15:14 [place] Allergy Hives Verified 03/20/18 15:14 phenytoin [From Dilantin] Allergy Hives Verified 03/20/18 15:14 methocarbamol [From Robaxin] AdvReac Vomiting Verified 03/20/18 15:14 All systems ED: reviewed and negative except as stated. Constitutional: Denies: fever Cardiovascular: Denies: chest pain Respiratory: Denies: dyspnea Gastrointestinal: Reports: as per HPI, abdominal pain, nausea, vomiting. Denies : diarrhea, constipation, hematemesis, melena, hematochezia Genitourinary: Denies: dysuria Musculoskeletal: Reports: as per HPI, back pain Abdominal Pain PMH - Past Medical History Medical history: Reports: asthma, COPD, coronary artery disease, GERD, hyperlipidemia, myocardial infarction, renal disease, seizures, TIA Female Surgical History: Reports: , cholecystectomy [employer] history: Reports: no [employer]E [employer] history Psychiatric history: Reports: anxiety, depression - Social History Smoking status: Never smoker Alcohol use: Reports: none Drug use: Reports: none Physical Exam - General Limitations: no limitations General appearance: alert, in no apparent distress - Head Head exam: atraumatic, normocephalic - Eye Eye exam: Present: normal appearance. Absent: scleral icterus - ENT ENT exam: normal exam, mucous membranes moist - Neck Neck exam: Present: normal inspection - Respiratory Respiratory exam: Present: normal lung sounds bilaterally. Absent: respiratory distress - Cardiovascular Cardiovascular exam: Present: regular rate, normal rhythm, normal heart sounds - Abdominal Exam Abdominal exam: Present: soft, tenderness, normal bowel sounds. Absent: distention, guarding, rebound, rigidity Abdominal tenderness: Present: epigastrium, moderate - Extremities Exam Extremities exam: Present: normal inspection. Absent: calf tenderness - Neurological Exam Neurological exam: Present: alert, oriented X3. Absent: motor sensory deficit - Psychiatric Psychiatric exam: Present: normal affect, normal mood - Skin Skin exam: Present: warm, dry, intact Course - Reevaluation(s) Reevaluation #1: Discussed test results with patient. She seems to have a mild or early case of pancreatitis. She feels that, based on her past experience, she needs to come in to the hospital for symptom control. Time: 18:40 - Consultations Consultation #1: Reviewed case with Dr. Glover, who has accepted patient for admission. Time: 18:53 Vital Signs Temperature 98.7 F 03/20/18 15:14 Pulse Rate 104 03/20/18 15:14 Respiratory Rate 20 03/20/18 15:14 Blood Pressure 186/83 03/20/18 15:14 O2 Sat by Pulse Oximetry 98 03/20/18 15:14 Temperature 98.7 F 03/20/18 15:23 Pulse Rate 101 03/20/18 18:13 Respiratory Rate 18 03/20/18 20:05 Blood Pressure 172/104 03/20/18 20:05 O2 Sat by Pulse Oximetry 97 03/20/18 18:13 Oxygen Delivery Oxygen Delivery Room Air Abdominal Pain - Lab Data Lab results reviewed: Yes I reviewed the patient's lab results. Result diagrams: 03/20/18 15:40 03/20/18 15:40 Lab Results 03/20/18 03/20/18 03/20/18 Range/Units 15:25 15:40 15:40 WBC 10.8 (4.3-11.1) K/mcL RBC 4.17 (3.82-4.97) M/mcL Hgb 11.7 (11.5-15.4) g/dL Hct 35.3 (35.3-44.9) % MCV 84.7 (83.0-100.0) fL MCH 28.1 (28.0-33.3) pg MCHC 33.1 (31.6-35.5) g/dL RDW 16.2 H (11.5-14.5) % Plt Count 423 H (140-400) K/mcL MPV 9.0 L (9.4-12.4) fL Immature Gran % 0.5 (0-4) % Seg Neutrophils % 74.3 % Lymphocytes % 19.0 % Monocytes % 4.6 % Eosinophils % 0.7 % Basophils % 0.9 % Neutrophils # 8.0 (1.6-8.9) K/mcL Lymphocytes # 2.0 (0.6-4.6) K/mcL Monocytes # 0.5 (0.0-1.3) K/mcL Eosinophils # 0.1 (0.0-0.6) K/mcL Basophils # 0.1 (0.0-0.2) K/mcL Sodium 141 (136-145) mEq/L Potassium 3.8 (3.5-5.1) mEq/L Chloride 106 (98-107) mEq/L Carbon Dioxide 25 (23-29) mEq/L BUN 13 (6-20) mg/dL Creatinine 1.11 (0.60-1.20) mg/dL Est GFR ( Amer) > 60 (> 60) Est GFR (Non-Af Amer) 52 L (> 60) BUN/Creatinine Ratio 12 (6-26) Glucose 100 (70-105) mg/dL Calculated Osmolality 292 (280-300) Calcium 9.8 (8.6-10.3) mg/dL Total Bilirubin 0.4 (0.3-1.0) mg/dL Direct Bilirubin 0.1 (0.0-0.2) mg/dL Indirect Bilirubin 0.3 (0.0-1.2) mg/dL AST 23 (13-39) Units/L ALT 22 (7-52) Units/L Alkaline Phosphatase 78 (34-104) Units/L Troponin I < 0.03 (< 0.04) ng/mL Serum Total Protein 7.6 (6.4-8.9) g/dL Albumin 4.7 (3.5-5.7) g/dL Globulin 2.9 (2.4-3.5) g/dL Albumin/Globulin Ratio 1.6 (1.1-2.2) Amylase 134 H (29-103) Units/L Lipase 303 H (11-82) Units/L Urine Color Yellow (Yellow) Urine Clarity Clear (Clear) Urine pH 6.0 (5.0-8.0) pH Units Ur Specific [place] 1.016 (1.010-1.025) Urine Protein Negative (Neg-Trace) mg/dL Urine Glucose (UA) Normal (Normal) mg/dL Urine Ketones Negative (Negative) mg/dL Urine Blood Negative (Negative) Urine Nitrite Negative (Negative) Urine Bilirubin Negative (Negative) Urine Urobilinogen Normal (Normal) mg/dL Ur Leukocyte Esterase Negative (Negative) Ur Culture Indicated? NO (NO) - Radiology Data Radiology results reviewed: Yes I reviewed the patient's radiology results. CT/CT abd pelvis w iv and oral IMPRESSION: Subtle peripancreatic stranding suggestive of mild or early acute pancreatitis. - EKG Data EKG attestation: Yes I reviewed and interpreted this EKG. EKG shows normal: sinus rhythm, axis, intervals, QRS complexes, ST-T waves Interpretation: normal EKG
[2018-03-20 16:20] LABS: Troponin I < 0.03 ng/mL (< 0.04)
[2018-03-20 16:22] LABS: Alanine Aminotransferase 22 Units/L (7-52); Albumin 4.7 g/dL (3.5-5.7); Albumin/Globulin Ratio 1.6 (1.1-2.2); Alkaline Phosphatase 78 Units/L (34-104); Amylase 134 Units/L (29-103); Aspartate Amino Transferase 23 Units/L (13-39); BUN/Creatinine Ratio 12 (6-26); Bilirubin,Direct 0.1 mg/dL (0.0-0.2); Bilirubin,Indirect 0.3 mg/dL (0.0-1.2); Bilirubin,Total 0.4 mg/dL (0.3-1.0); Blood Urea Nitrogen 13 mg/dL (6-20); Calcium 9.8 mg/dL (8.6-10.3); Carbon Dioxide 25 mEq/L (23-29); Chloride 106 mEq/L (98-107); Globulin 2.9 g/dL (2.4-3.5); Glucose 100 mg/dL (70-105); Lipase 303 Units/L (11-82); Osmolality,Calculated 292 (280-300); Potassium 3.8 mEq/L (3.5-5.1); Sodium 141 mEq/L (136-145); Total Protein 7.6 g/dL (6.4-8.9); eGFR For African Americans > 60 (> 60); eGFR For Non-African Americans 52 (> 60)
[2018-03-20] MEDS ORDERED: Ondansetron 4 MG/2 ML VIAL IVP STA (17:37)
[2018-03-20] MEDS ORDERED: Ketorolac 30 MG/ML VIAL IVP ONE (17:37)
[2018-03-20] MEDS ORDERED: *HR* FentaNYL (PF) 100 MCG/2 ML VIAL IVP ONE (18:38)
[2018-03-20] MEDS ORDERED: *HR* Promethazine 25 MG/ML VIAL IVP ONE (18:38)
[2018-03-20] MEDS ORDERED: Naloxone 0.4 MG/ML INJ IVP PRN (20:36)
[2018-03-20] MEDS ORDERED: *HR* Promethazine 25 MG/ML VIAL IVP PRN (21:13)
[2018-03-20] MEDS: *HR* FentaNYL (PF) 100 MCG/2 ML VIAL IVP PRN (21:47)
--- NOTE | 2018-03-20 23:08 | Internal Med History&Physical ---
Date of Encounter: 03/21/18 Time of Encounter: 20:15 Internal Medicine - H&P: HPI Chief complaint: Acute on chronic pancreatitis Admitted From: Home Plans for Post Hospital Care: Home History of present illness: Ms. Astudillo is a 52 year old female Patient has a history of chronic pancreatitis secondary to gastric bypass surgery in 2014. She states that she gets repeat attacks of pancreatitis multiple times a year, last admission was about 12 days ago to this facility. She started feeling nauseous and sharp epigastric pain that radiated to her lower back about 5 days ago, similar to her previous attacks in the past. She has not had any vomiting or fever she also denies chest pain, shortness of breath, dysuria, diarrhea, constipation. She came to the emergency room received a liter of IV fluids, IV fentanyl, Toradol, Zofran and Phenergan and her symptoms have improved. CT abdomen showed subtle gisela-pancreatic stranding suggestive of mild or early acute pancreatitis. EKG was normal sinus rhythm. Patient had elevated amylase and lipase. Past Med Surg Social Fam HX - Past Medical History Medical history: asthma, COPD, coronary artery disease, GERD, hyperlipidemia, myocardial infarction, renal disease, seizures, TIA Additional medical history: PANCREATITIS. GASTRIC BYPASS Psychiatric history: anxiety, depression - Past Surgical History Surgical History: hysterectomy Additional surgical history: GASTRIC BYPASS - Social History Smoking Status: Never smoker Smokeless Tobacco Status: No Alcohol use: none Drug use: none - Family History Mother Family Member Ethnicity: Non- Living Status: Hx Family Cardiac Disorders: No Hx Family Respiratory Disorders: No Hx Family Cancer: Yes (Esophageal) Hx Family GI Disorders: No Hx Family Endocrine Disorder: No Hx Family Neuromuscular Disorders: No Hx Family Neurologic Disorders: No Hx Family HEENT Disorders: No Hx Family Autoimmune Disorders: No Father Family Member Ethnicity: Non- Living Status: Hx Family Cancer: Yes (Prostate) Hx Family Neurologic Disorders: Yes (Alzheimer's disease) Brother Family Member Ethnicity: Non- Living Status: Still Living Sister Adopted: No Family Member Ethnicity: Non- Living Status: Hx Family Cardiac Disorders: Yes Hx Family Respiratory Disorders: No Hx Family Cancer: Yes Hx Family GI Disorders: No Hx Family Endocrine Disorder: No Hx Family Neuromuscular Disorders: No Hx Family Neurologic Disorders: No Hx Family HEENT Disorders: No Hx Family Autoimmune Disorders: No Internal Medicine - H&P: Meds Tizanidine HCl [Zanaflex] 4 mg PO BID 01/15/16 [History] Venlafaxine XR (24 HR) [Effexor Xr] 75 mg PO DAILY 07/25/17 [History] BuPROPion XL (24 HR) [Wellbutrin Xl] 300 mg PO DAILY 08/20/17 [History] Aripiprazole [Abilify] 20 mg PO DAILY 09/08/17 [History] Cholecalciferol (D-3) [Vitamin D] 5,000 unit PO DAILY 09/08/17 [History] Cyanocobalamin (B-12) [Vitamin B12] 1,000 mcg IM QMONTH 09/08/17 [History] Loratadine [Allergy Relief] 10 mg PO DAILY 12/11/17 [History] Ondansetron [Zofran] 4 mg PO Q8H PRN 12/11/17 [History] Lipase/Protease/Amylase [Creon Dr 6,000 Units Capsule] 1 cap PO QIDAC 12/28/17 [ History] Montelukast [Singulair] 10 mg PO DAILY 03/08/18 [History] Niacin [Plain Niacin] 500 mg PO DAILY 03/08/18 [History] Pantoprazole Sodium 40 mg PO DAILY 03/08/18 [History] Ranitidine HCl [Acid Biodiesel Plant Superintendent] 150 mg PO BID 03/08/18 [History] Temazepam [Restoril] 30 mg PO HS 03/08/18 [History] 3 Allergy/AdvReac Type Severity Reaction Status Date / Time acetaminophen [From Fioricet] Allergy Hives Verified 03/20/18 15:14 butalbital [From Fioricet] Allergy Hives Verified 03/20/18 15:14 caffeine [From Fioricet] Allergy Hives Verified 03/20/18 15:14 [place] Allergy Hives Verified 03/20/18 15:14 phenytoin [From Dilantin] Allergy Hives Verified 03/20/18 15:14 methocarbamol [From Robaxin] AdvReac Vomiting Verified 03/20/18 15:14 All Systems PM: A 10-system review of systems was performed and is negative for pertinent findings except as documented above in the HPI. - Constitutional Vitals: Temp Pulse Resp BP Pulse Ox 98.7 F 77 15 166/104 96 03/20/18 20:45 03/20/18 20:45 03/20/18 20:45 03/20/18 20:45 03/20/18 20:45 General appearance: Present: mild distress, A&O X 3, pleasant - Head Head exam: Present: normal inspection - Respiratory Respiratory exam: Present: CTAB. Absent: rales, respiratory distress, wheezes - Cardiovascular Cardiovascular exam: Present: RRR. Absent: diastolic murmur, systolic murmur - GI/Abdominal GI/Abdominal exam: Present: normal bowel sounds, tenderness. Absent: firm Additional comments: Tenderness over epigastric area, and right upper quadrant. - Extremities Exam Extremities exam: Present: full ROM, warm, radial pulses palpable and symmetrical. Absent: tenderness - Neurological Exam Neurological exam: Present: oriented X3, strengths equal and symetr throughout. Absent: facial droop, speech deficit - Skin Skin exam: Present: dry, normal color, warm. Absent: rash Internal Med - H&P Results - Labs CBC & Chem 7: 03/21/18 05:20 03/21/18 05:20 - Assessment and plan (1) Acute on chronic pancreatitis Current Visit: Yes Status: Acute Assessment and plan: Similar to attacks in the past. Patient does not see a specialist for management outpatient. No identifiable triggers. Elevated lipase and amylase on blood work. CT shows pancreatitis. NPO until pain improves, the progress diet as tolerated. Patient states usually at least a few days. Pain control with fentanyl, will try percocet if not helping Nausea control with phenergan as patient states that zofran does not work. IV fluid boluses given in the ER, and continued on the floor. (2) Nausea Current Visit: No Status: Acute Assessment and plan: Secondary to pancreatitis. Phenergan PRN (3) Abdominal pain Current Visit: No Status: Acute Assessment and plan: Secondary to pancreatitis. Treatment as above. Qualifiers: Abdominal location: epigastric Qualified Code(s): R10.13 - Epigastric pain (4) GERD (gastroesophageal reflux disease) Current Visit: No Status: Chronic Assessment and plan: Hold home meds until no long NPO. Can consider IV PPI if needed. Qualifiers: Esophagitis presence: esophagitis presence not specified Qualified Code(s) : K21.9 - Gastro-esophageal reflux disease without esophagitis (5) CKD (chronic kidney disease) Current Visit: No Status: Chronic Assessment and plan: Continue to monitor, likely stage 3, currently at baseline. Qualifiers: Chronic kidney disease stage: stage 3 (moderate) Qualified Code(s): N18.3 - Chronic kidney disease, stage 3 (moderate) (6) Anxiety and depression Current Visit: No Status: Chronic Assessment and plan: Hold home meds until no longer NPO. - Time Spent With Patient Total time spent is greater than 50% in coordination of care (as documented) at patient's floor/unit and/or counseling patient: Greater than 35 minutes
[2018-03-21] MEDS ORDERED: *HR* Promethazine 25 MG/ML VIAL IVP ONE (00:42)
[2018-03-21] MEDS: OXYCODONE Oral CONC 10 MG/0.5 ML ORAL.SYG SL PRN ×4 (00:49→23:41)
[2018-03-21] MEDS: *HR* FentaNYL (PF) 100 MCG/2 ML VIAL IVP PRN ×4 (02:56→19:39)
[2018-03-21 05:39] LABS: Hemoglobin 10.9 g/dL (11.5-15.4); Mean Corpuscular HGB Conc 32.1 g/dL (31.6-35.5); Mean Corpuscular Hemoglobin 27.8 pg (28.0-33.3); Mean Corpuscular Volume 86.7 fL (83.0-100.0); Mean Platelet Volume 8.7 fL (9.4-12.4); Platelet Count 361 K/mcL (140-400); Red Blood Count 3.92 M/mcL (3.82-4.97); Red Cell Distribution Width 16.4 % (11.5-14.5)
[2018-03-21 06:06] LABS: BUN/Creatinine Ratio 12 (6-26); Blood Urea Nitrogen 11 mg/dL (6-20); Calcium 9.1 mg/dL (8.6-10.3); Carbon Dioxide 25 mEq/L (23-29); Chloride 109 mEq/L (98-107); Glucose 99 mg/dL (70-105); Osmolality,Calculated 293 (280-300); Potassium 3.7 mEq/L (3.5-5.1); Sodium 142 mEq/L (136-145); eGFR For African Americans > 60 (> 60); eGFR For Non-African Americans > 60 (> 60)
[2018-03-21] MEDS: *HR* Promethazine 25 MG/ML VIAL IVP PRN ×3 (06:28→23:41)
--- NOTE | 2018-03-21 15:52 | Internal Med Progress Note ---
Date of Encounter: 03/21/18 Time of Encounter: 12:00 - Assessment and plan (1) Acute pancreatitis Current Visit: No Status: Acute Assessment and plan: see above Qualifiers: Pancreatitis type: unspecified pancreatitis type Acute pancreatitis complication: no infection or necrosis Qualified Code(s): K85.90 - Acute pancreatitis without necrosis or infection, unspecified (2) Pancreatitis Current Visit: No Status: Chronic Assessment and plan: Per hx of chronic pancreatitis, secondary to gastric bypass surgery in 2014. Hx of repeat attacks of severe abdominal pain with acute pancreatitis. CT abdomen showed subtle gisela-pancreatic stranding suggestive of mild or early acute pancreatitis. EKG was normal sinus rhythm. Patient had elevated amylase and lipase. Will repeat levels today. Continues with lower abdominal pain and tenderness to palp. Rating her pain as 8 on scale of 10. Denies bowel movements today. Will continue with current oxycodone Qualifiers: Chronicity: chronic Qualified Code(s): K86.1 - Other chronic pancreatitis (3) Malabsorption syndrome Current Visit: No Status: Chronic Assessment and plan: per hx with gastric bypass 2014. Will end NPO status as has not had Nausea, or vomiting since admission. Will start on low residue diet, and add consult for nutrition Qualifiers: Intestinal malabsorption type: unspecified Qualified Code(s): K90.9 - Intestinal malabsorption, unspecified (4) Hypertension Current Visit: Yes Status: Acute Assessment and plan: Blood pressure trending up will start antihypertensive, and closely monitor vital signs. Qualifiers: Qualified Code(s): I10 - Essential (primary) hypertension (5) Anemia Current Visit: No Status: Chronic Assessment and plan: per hx of iron difficency anemia secondary to gastric bypass surgery. HGB trending down 10 10.9 from 11.7 will repeat CBC w diff, and consult master technician . Qualifiers: Anemia type: B12 deficiency Vitamin B12 deficiency anemia type: other dietary B12 deficiency Qualified Code(s): D51.3 - Other dietary vitamin B12 deficiency anemia (6) Nausea Current Visit: No Status: Acute Assessment and plan: continues with nausea, however, feels if she is given some food may help to resolve, will d/c NPO status and add low risidual diet for this evening. If tolerates for 24-48 hours w/o resumption of abdominal pain, nausea , diarrhea, or vomiting may progress as tolerated. (7) C. difficile diarrhea Current Visit: No Status: Acute Assessment and plan: negative today per PCR, resolved (8) DVT prophylaxis Current Visit: Yes Status: Acute (9) DVT prophylaxis Current Visit: Yes Status: Acute Assessment and plan: Will start heperin per pharmacy protocol for DVT prophylaxis - Time Spent With Patient Total time spent is greater than 50% in coordination of care (as documented) at patient's floor/unit and/or counseling patient: - Subjective Interval history: This is a 52 year-old female with history of gastric bypass (2014) with malabsorption and chronic pancreatitis, who presented to the ED on 03/20/2018, with sharp epigastric abdominal pain, radiating to the low back, that began 5 days prior to being seen in the ED. Abdominal pain was associated with nausea and vomiting. Hx of previous bouts of pancreatitis. Today she denies vomiting , or diarrhea, states she has not had any bowel movements since admission. She continues to complain of generalized abdominal pain, all quads. States has hx of Clostrium difficle in the past. - Constitutional Vitals: Temp Pulse Resp BP Pulse Ox 98.9 F 88 18 164/101 97 03/21/18 11:57 03/21/18 11:57 03/21/18 11:57 03/21/18 11:57 03/21/18 11:57 General appearance: Present: mild distress, A&O X 3, pleasant - Respiratory Respiratory exam: Present: CTAB - Cardiovascular Cardiovascular exam: Present: RRR - GI/Abdominal GI/Abdominal exam: Present: distended, guarding, normal bowel sounds, soft, tenderness - Extremities Exam Extremities exam: Present: full ROM, normal inspection - Neurological Exam Neurological exam: Present: alert, CN II-XII intact, normal gait, oriented X3, strengths equal and symetr throughout - Psychiatric Psychiatric exam: Present: normal affect, normal mood Internal Medicine: Result - Labs CBC & Chem 7: 03/21/18 05:20 03/21/18 05:20 Labs: Short CBC 03/21/18 Range/Units 05:20 WBC 6.4 (4.3-11.1) K/mcL Hgb 10.9 L (11.5-15.4) g/dL Hct 34.0 L (35.3-44.9) % Plt Count 361 (140-400) K/mcL BMP 03/21/18 05:20 Sodium 142 Potassium 3.7 Chloride 109 H Carbon Dioxide 25 BUN 11 Creatinine 0.92 Glucose 99 Calcium 9.1 Consult Discharge Plan - Plan Referrals: Niecy Albarran [Primary Care Provider] -
[2018-03-21] MEDS: *HR* Heparin 5,000 UNIT/ML VIAL SQ SCH (17:11)
[2018-03-22] MEDS: *HR* FentaNYL (PF) 100 MCG/2 ML VIAL IVP PRN ×3 (02:37→12:02)
[2018-03-22] MEDS: *HR* Heparin 5,000 UNIT/ML VIAL SQ SCH (05:48)
[2018-03-22 06:01] LABS: Basophils # 0.1 K/mcL (0.0-0.2); Basophils % 1.1 %; Eosinophils # 0.3 K/mcL (0.0-0.6); Hematocrit 35.3 % (35.3-44.9); Hemoglobin 11.5 g/dL (11.5-15.4); Immature Granulocytes % 0.1 % (0-4); Lymphocytes % 27.5 %; Mean Corpuscular HGB Conc 32.6 g/dL (31.6-35.5); Mean Corpuscular Hemoglobin 28.3 pg (28.0-33.3); Mean Corpuscular Volume 86.9 fL (83.0-100.0); Mean Platelet Volume 8.8 fL (9.4-12.4); Monocytes # 0.6 K/mcL (0.0-1.3); Monocytes % 7.8 %; Neutrophils # 4.3 K/mcL (1.6-8.9); Platelet Count 375 K/mcL (140-400); Red Blood Count 4.06 M/mcL (3.82-4.97); Red Cell Distribution Width 16.2 % (11.5-14.5); Segmented Neutrophils % 59.5 %
[2018-03-22 06:24] LABS: Alanine Aminotransferase 27 Units/L (7-52); Albumin 4.3 g/dL (3.5-5.7); Albumin/Globulin Ratio 1.6 (1.1-2.2); Alkaline Phosphatase 85 Units/L (34-104); Aspartate Amino Transferase 24 Units/L (13-39); BUN/Creatinine Ratio 14 (6-26); Bilirubin,Total 0.4 mg/dL (0.3-1.0); Blood Urea Nitrogen 12 mg/dL (6-20); Calcium 9.5 mg/dL (8.6-10.3); Carbon Dioxide 28 mEq/L (23-29); Chloride 107 mEq/L (98-107); Globulin 2.7 g/dL (2.4-3.5); Glucose 86 mg/dL (70-105); Osmolality,Calculated 291 (280-300); Potassium 3.8 mEq/L (3.5-5.1); Sodium 141 mEq/L (136-145); eGFR For African Americans > 60 (> 60); eGFR For Non-African Americans > 60 (> 60)
[2018-03-22] MEDS: *HR* Promethazine 25 MG/ML VIAL IVP PRN ×2 (07:40→16:24)
[2018-03-22] MEDS: OXYCODONE Oral CONC 10 MG/0.5 ML ORAL.SYG SL PRN ×2 (10:17→16:24)
[2018-03-22] MEDS ORDERED: Ondansetron ODT 4 MG TAB.RAPDIS PO PRN (13:30)
--- NOTE | 2018-03-22 13:39 | Internal Med Progress Note ---
Date of Encounter: 03/22/18 Time of Encounter: 13:27 - Assessment and plan (1) Acute on chronic pancreatitis Current Visit: Yes Status: Acute Assessment and plan: History of chronic pancreatitis, recurrent most likely post gastric bypass surgery. Not very high lipase but patient complained of abdominal pain though no acute abdomen finding. Lipase is also trending down. CT abdomen on admission with no acute finding. Today plan to stop fentanyl, go back to liquid diet in a stop solid diet. Pain management. Plan to discharge patient possibly tomorrow after getting better controlled on pain on minimal medication. Patient needs to be seen by GI specialist on OPD basis and patient is planning to make appointment with Dr. Coreas. Patient also needs to get reestablished with gastric bypass surgeon on OPD basis due to recurrent abdomen pain. (2) Hypertension Current Visit: Yes Status: Acute Assessment and plan: Started lisinopril. Will add hydralazine as needed. Monitor blood pressure and make further adjustment in antihypertensive medicine. Qualifiers: Hypertension type: essential hypertension Qualified Code(s): I10 - Essential (primary) hypertension (3) Exocrine pancreatic insufficiency Current Visit: No Status: Chronic Assessment and plan: Continue enzyme supplement. (4) Malabsorption syndrome Current Visit: No Status: Chronic Assessment and plan: Status post gastric bypass surgery. Continue nutrition as advised Qualifiers: Intestinal malabsorption type: unspecified Qualified Code(s): K90.9 - Intestinal malabsorption, unspecified (5) DVT prophylaxis Current Visit: Yes Status: Acute Assessment and plan: Heparin, SCDs. - Time Spent With Patient Total time spent is greater than 50% in coordination of care (as documented) at patient's floor/unit and/or counseling patient: - Subjective Interval history: Patient is still complaining of abdomen pain especially epigastric and right upper quadrant. She has chronic intermittent abdominal pain due to chronic pancreatitis and take Tylenol or some time nsaids [id number]. She was seen by GI specialist Dr. coreas 6 years back. Patient had history of recurrent admission due to abdominal pain. She is still requiring fentanyl and hydrocodone. Her pain is worse when she takes solid diet. Her blood pressure also noticed high and a started lisinopril 10 mg daily yesterday. Patient denies fever or chills vomiting headache dizziness chest pain shortness of breath diarrhea or urinary complaint. She does complain of nausea. Review the lab with trending down lipase. - Constitutional Vitals: Temp Pulse Resp BP Pulse Ox 98.2 F 89 18 154/97 99 03/22/18 11:31 03/22/18 11:31 03/22/18 11:31 03/22/18 11:31 03/22/18 11:31 General appearance: Present: mild distress, A&O X 3, pleasant Exam: General appearance: A&O X 3 Head exam: Atraumatic Eye exam: EOMI, PERRLA ENT exam: Moist oral mucosa Neck nontender, supple Respiratory exam: Clear to auscultation bilaterally Cardiovascular exam: Regular rate and rhythm, no systolic murmur Abdominal exam: Soft, mildly tender epigastric, nondistended, positive bowel sounds Extremities exam: No calf tenderness, no pedal edema Present: Skin-no rash, warm, dry, intact Neurological exam: Alert, awake, oriented 3, CN II-XII intact, no focal deficits. No facial droop. Normal speech. Normal gait. Internal Medicine: Result - Labs CBC & Chem 7: 03/22/18 05:40 03/22/18 05:40 Labs: Short CBC 03/22/18 Range/Units 05:40 WBC 7.2 (4.3-11.1) K/mcL Hgb 11.5 (11.5-15.4) g/dL Hct 35.3 (35.3-44.9) % Plt Count 375 (140-400) K/mcL Neutrophils # 4.3 (1.6-8.9) K/mcL BMP 03/22/18 05:40 Sodium 141 Potassium 3.8 Chloride 107 Carbon Dioxide 28 BUN 12 Creatinine 0.88 Glucose 86 Calcium 9.5 Liver Function 03/22/18 Range/Units 05:40 Total Bilirubin 0.4 (0.3-1.0) mg/dL AST 24 (13-39) Units/L ALT 27 (7-52) Units/L Alkaline Phosphatase 85 (34-104) Units/L Albumin 4.3 (3.5-5.7) g/dL Consult Discharge Plan - Plan Referrals: Niecy Albarran [Primary Care Provider] -
[2018-03-22] MEDS ORDERED: Temazepam 15 MG CAPSULE PO SCH (21:00)
[2018-03-22] MEDS: Famotidine 20 MG TABLET PO SCH (21:03)
[2018-03-22] MEDS: tiZANidine 4 MG TABLET PO SCH (21:03)
[2018-03-23] MEDS: *HR* Promethazine 25 MG/ML VIAL IVP PRN ×2 (00:22→09:04)
[2018-03-23] MEDS: OXYCODONE Oral CONC 10 MG/0.5 ML ORAL.SYG SL PRN ×2 (00:23→09:03)
[2018-03-23 07:25] VITALS: BP 116/85
--- NOTE | 2018-03-23 08:19 | Discharge Summary ---
- NOTES TO OUTPATIENT PROVIDER Notes to Outpatient Provider: Keep follow up appointment with PCP in 1 week as scheduled. Recheck lipase and blood pressure at that time. Follow up with GI and bariatric surgeon in 1-2 weeks. Date of Encounter: 03/23/18 Time of Encounter: 08:17 - Discharge Diagnosis (1) Acute on chronic pancreatitis Priority: Primary Status: Acute (2) Hypertension Priority: Secondary Status: Acute Qualifiers: Hypertension type: essential hypertension Qualified Code(s): I10 - Essential (primary) hypertension (3) Malabsorption syndrome Priority: Secondary Status: Chronic Qualifiers: Intestinal malabsorption type: unspecified Qualified Code(s): K90.9 - Intestinal malabsorption, unspecified (4) Exocrine pancreatic insufficiency Priority: Secondary Status: Chronic (5) DVT prophylaxis Priority: Secondary Status: Acute Hospital course: Ms. Astudillo is a 52 year old female admitted for abdominal pain secondary to acute on chronic pancreatitis. She was admitted to general medical floor. She was made NPO and started on IV fentanyl for pain control. Zofran and phenergan were used for nausea/vomiting. She had some hypertension, likely secondary to pain. She was started on low dose lisinopril, which will be continued at discharge. Lipase trended down and abdominal pain improved daily. Nausea and vomiting improved, and she was started on diet. Today, she is tolerating diet without issues. She still has mild abdominal pain. She is agreeable to go home with pain control. She has zofran at home. She will follow up with PCP in 1 week as scheduled, or earlier if symptoms do not continue to improve. She will follow up with GI and bariatric surgeon in 1-2 weeks. PCP can recheck blood pressure and adjust anti-hypertensives as necessary. Repeat lipase can also be checked at that time. Patient has met maximum benefit of this hospitalization and will be discharged home in stable condition. Discharge discussed with: patient, nurse - Time Spent with Patient Total time spent providing and/or coordinating discharge services: Greater than 30 minutes - Discharge Medications Prescriptions: Lisinopril [Zestril] 10 mg PO DAILY 14 Days #14 tablet Oxycodone HCl 5 mg PO Q6H PRN 2 Days #8 tablet PRN Reason: Severe Pain Home Medications: Tizanidine HCl [Zanaflex] 4 mg PO BID 01/15/16 [History] Venlafaxine XR (24 HR) [Effexor Xr] 75 mg PO DAILY 07/25/17 [History] BuPROPion XL (24 HR) [Wellbutrin Xl] 300 mg PO DAILY 08/20/17 [History] Aripiprazole [Abilify] 20 mg PO DAILY 09/08/17 [History] Cholecalciferol (D-3) [Vitamin D] 5,000 unit PO DAILY 09/08/17 [History] Cyanocobalamin (B-12) [Vitamin B12] 1,000 mcg IM QMONTH 09/08/17 [History] Loratadine [Allergy Relief] 10 mg PO DAILY 12/11/17 [History] Ondansetron [Zofran] 4 mg PO Q8H PRN 12/11/17 [History] Lipase/Protease/Amylase [Creon Dr 6,000 Units Capsule] 1 cap PO QIDAC 12/28/17 [ History] Montelukast [Singulair] 10 mg PO DAILY 03/08/18 [History] Niacin [Plain Niacin] 500 mg PO DAILY 03/08/18 [History] Pantoprazole Sodium 40 mg PO DAILY 03/08/18 [History] Ranitidine HCl [Acid Director Of Sales] 150 mg PO BID 03/08/18 [History] Temazepam [Restoril] 30 mg PO HS 03/08/18 [History] Lisinopril [Zestril] 10 mg PO DAILY 14 Days #14 tablet 03/23/18 [Rx] Oxycodone HCl 5 mg PO Q6H PRN 2 Days #8 tablet 03/23/18 [Rx] Allergies/Adverse Reactions: 3 Allergy/AdvReac Type Severity Reaction Status Date / Time acetaminophen [From Fioricet] Allergy Hives Verified 03/20/18 15:14 butalbital [From Fioricet] Allergy Hives Verified 03/20/18 15:14 caffeine [From Fioricet] Allergy Hives Verified 03/20/18 15:14 [place] Allergy Hives Verified 03/20/18 15:14 phenytoin [From Dilantin] Allergy Hives Verified 03/20/18 15:14 methocarbamol [From Robaxin] AdvReac Vomiting Verified 03/20/18 15:14 Date of admission: 03/21/18 20:32 Primary care physician: Niecy Albarran Discharging clinician: Solitario Ye Anticipated date of discharge: 03/23/18 - Constitutional Vitals: Temp Pulse Resp BP Pulse Ox 98.4 F 96 15 116/85 96 03/23/18 07:24 03/23/18 07:24 03/23/18 07:24 03/23/18 07:24 03/23/18 07:24 General appearance: Present: cooperative, A&O X 3, pleasant, no acute distress, answers questions appropriately - Respiratory Respiratory exam: Present: CTAB. Absent: accessory muscle use, rales, rhonchi, wheezes Additional comments: Normal WOB - Cardiovascular Cardiovascular exam: Present: RRR, +S1, +S2. Absent: diastolic murmur, gallop, rubs, systolic murmur Additional comments: No BLE edema - GI/Abdominal GI/Abdominal exam: Present: normal bowel sounds, soft, tenderness (Mild TTP diffusely across abdomen). Absent: distended, guarding, hepatomegaly, mass, rebound, splenomegaly - Psychiatric Psychiatric exam: Present: normal affect, normal mood. Absent: agitated, anxious, depressed - Skin Skin exam: Present: dry, intact, warm. Absent: cyanosis, rash - Patient Status Disposition: Home, Self-Care Condition: Good Functional capacity at discharge: independent ambulation Overall status at discharge: patient is progressing back to baseline - Discharge Instructions Follow Up With: Niecy Albarran [Primary Care Provider] - 04/06/18 2:15 pm Karon Bocanegra M.D. [Non-Partnered Physician] - 05/21/18 8:15 am Antoinette Currie MD [Partnered Physician] - (We have web requested you an appointment with [facility], they should be contacting you within the next week with an appointment. Thank you!) Additional Instructions: Keep follow up appointment with PCP in 1 week as scheduled. Recheck lipase and blood pressure at that time. Follow up with GI and bariatric surgeon in 1-2 weeks. - Diet and Activity Activity: resume usual activities as tolerated Diet: advance to your usual diet
[2018-03-23] MEDS ORDERED: ARIPiprazole 10 MG TABLET PO SCH (09:00)
[2018-03-23] MEDS ORDERED: BuPROPion XL (24 HR) 150 MG TABLET PO SCH (09:00)
[2018-03-23] MEDS ORDERED: Cholecalciferol (D-3) 1,000 UNIT TABLET PO SCH (09:00)
[2018-03-23] MEDS ORDERED: Loratadine 10 MG TABLET PO SCH (09:00)
[2018-03-23] MEDS ORDERED: Niacin (24 HR) 500 MG TAB.ER.24H PO SCH (09:00)
[2018-03-23] MEDS ORDERED: Venlafaxine XR (24 HR) 37.5 MG CAP.ER.24H PO SCH (09:00)
[2018-03-23] MEDS: Famotidine 20 MG TABLET PO SCH (09:02)
[2018-03-23] MEDS: tiZANidine 4 MG TABLET PO SCH (09:03)
--- NOTE | 2018-03-23 10:17 | Physician Discharge Referral ---
Home Health/Hosp Referral Info Transfer to: Home Health Provider in Charge Post Discharge: PCP - Diagnosis (1) Acute on chronic pancreatitis Priority: Primary Status: Acute (2) Hypertension Priority: Secondary Status: Acute (3) Malabsorption syndrome Priority: Secondary Status: Chronic (4) Exocrine pancreatic insufficiency Priority: Secondary Status: Chronic (5) DVT prophylaxis Priority: Secondary Status: Acute - Respiratory Orders None Smoking Cessation: Smoking cessation has been advised. For more information, call the [place] Tobacco Quit Line at 7-871-DWLZ-NOW. - Diet/Nutrition Diet/Nutrition Orders: No Added Salt (MALACHI), Cardiac - Activity Activity Orders: Up ad martin - Services Needed Following services are medically necessary services: Nursing, Physical Therapy, Occupational Therapy - Transfer Medications Prescriptions: Lisinopril [Zestril] 10 mg PO DAILY 14 Days #14 tablet Oxycodone HCl 5 mg PO Q6H PRN 2 Days #8 tablet PRN Reason: Severe Pain Home Medications: Tizanidine HCl [Zanaflex] 4 mg PO BID 01/15/16 [History] Venlafaxine XR (24 HR) [Effexor Xr] 75 mg PO DAILY 07/25/17 [History] BuPROPion XL (24 HR) [Wellbutrin Xl] 300 mg PO DAILY 08/20/17 [History] Aripiprazole [Abilify] 20 mg PO DAILY 09/08/17 [History] Cholecalciferol (D-3) [Vitamin D] 5,000 unit PO DAILY 09/08/17 [History] Cyanocobalamin (B-12) [Vitamin B12] 1,000 mcg IM QMONTH 09/08/17 [History] Loratadine [Allergy Relief] 10 mg PO DAILY 12/11/17 [History] Ondansetron [Zofran] 4 mg PO Q8H PRN 12/11/17 [History] Lipase/Protease/Amylase [Creon Dr 6,000 Units Capsule] 1 cap PO QIDAC 12/28/17 [ History] Montelukast [Singulair] 10 mg PO DAILY 03/08/18 [History] Niacin [Plain Niacin] 500 mg PO DAILY 03/08/18 [History] Pantoprazole Sodium 40 mg PO DAILY 03/08/18 [History] Ranitidine HCl [Acid Security Associate] 150 mg PO BID 03/08/18 [History] Temazepam [Restoril] 30 mg PO HS 03/08/18 [History] Lisinopril [Zestril] 10 mg PO DAILY 14 Days #14 tablet 03/23/18 [Rx] Oxycodone HCl 5 mg PO Q6H PRN 2 Days #8 tablet 03/23/18 [Rx] Allergies/Adverse Reactions: 3 Allergy/AdvReac Type Severity Reaction Status Date / Time acetaminophen [From Fioricet] Allergy Hives Verified 03/20/18 15:14 butalbital [From Fioricet] Allergy Hives Verified 03/20/18 15:14 caffeine [From Fioricet] Allergy Hives Verified 03/20/18 15:14 [place] Allergy Hives Verified 03/20/18 15:14 phenytoin [From Dilantin] Allergy Hives Verified 03/20/18 15:14 methocarbamol [From Robaxin] AdvReac Vomiting Verified 03/20/18 15:14 Certification: Further, I certify that my clinical findings support that this patient is homebound (i.e. absences from home require considerable and taxing effort and are for medical reasons or amish services or infrequently or short duration when for other reasons) because: chronic pancreatitis, pancreatic insufficiency , HTN. Homebound Reason: Post-surgery restriction and or conditions limit ability to leave home, Leaving home requires considerable and taxing effort due to condition Attestation: My signature below is to certify that this patient is under my care and that I, or nurse practitioner, or a physician's gallery assistant working with me, has a face-to -face encounter with this patient.
--- NOTE | 2018-03-23 17:43 | Electrocardiograph Report ---
[address] [place], [place] [address] Test Date: 2018-03-20 Pat Name: Amol Astudillo Department: 104 Room: 3B45 Gender: F Manager [employer]: : 1965 Requested By: Jagdish Santana Order Number: [id number] Reading MD: Kilo Ferrer Measurements Intervals [place] Rate: 88 P: 23 IA: 122 QRS: 5 QRSD: 78 T: 37 QT: 350 QTc: 395 Interpretive Statements SINUS RHYTHM Electronically Signed On 03-23-2018 17:41:59 EDT by Kilo Ferrer
[2018-03-30] MEDS ORDERED: Cyanocobalamin (B-12) 1,000 MCG/ML VIAL IM SCH (09:00)
== END 2018-03-23 11:17 | disposition home or self-care (01) | DRG 282 ==
LOC: 3BNU 15:10 → EMEROO 15:10 → 3BNU 20:07
PROVIDERS: ADMIT Internal Medicine Nephrology; ATTEND Internal Medicine Nephrology

== ENCOUNTER 2018-04-28 11:19 | Inpatient (IN) ==
[2018-04-28] MEDS ORDERED: Ondansetron 4 MG/2 ML VIAL IVP ONE (11:52)
[2018-04-28] MEDS ORDERED: 0.9 % Sodium Chloride 1,000 ML IVC ONE ×2 (11:52→15:59)
[2018-04-28] MEDS ORDERED: Promethazine 25 MG in 0.9 % Sodium Chloride 50 ML IVPB ONE (12:15)
[2018-04-28] MEDS ORDERED: *HR* HYDROmorphone (PF) 1 MG/ML SYRINGE IVP ONE ×2 (12:15→15:58)
[2018-04-28 12:30] LABS: Bilirubin,Urine Negative (Negative); Blood,Urine Negative (Negative); Clarity,Urine Clear (Clear); Color,Urine Yellow (Yellow); Glucose,Urine (UA) Normal (Normal); Ketones,Urine Negative (Negative); Leukocyte Esterase,Urine Small (Negative); Nitrite,Urine Negative (Negative); Protein,Urine Negative (Neg-Trace); Specific Gravity,Urine 1.013 (1.010-1.025); Urobilinogen,Urine Normal (Normal)
[2018-04-28 12:34] LABS: Bacteria,Urine None Seen per hpf (None-Few); Hyaline Casts,Urine None Seen per lpf (None-Few); RBC,Urine 0-3 per hpf (0-3); Squamous Epithelial Cell,Urine Moderate per lpf (None-Few); WBC,Urine 0-3 per hpf (0-3)
[2018-04-28 13:13] LABS: Basophils # 0.1 K/mcL (0.0-0.2); Basophils % 0.7 %; Eosinophils # 0.1 K/mcL (0.0-0.6); Hemoglobin 9.9 g/dL (11.5-15.4); Immature Granulocytes % 0.3 % (0-4); Lymphocytes # 1.6 K/mcL (0.6-4.6); Lymphocytes % 20.3 %; Mean Corpuscular HGB Conc 31.9 g/dL (31.6-35.5); Mean Corpuscular Hemoglobin 27.5 pg (28.0-33.3); Mean Corpuscular Volume 86.1 fL (83.0-100.0); Mean Platelet Volume 9.3 fL (9.4-12.4); Monocytes # 0.4 K/mcL (0.0-1.3); Monocytes % 5.4 %; Neutrophils # 5.5 K/mcL (1.6-8.9); Platelet Count 331 K/mcL (140-400); Red Cell Distribution Width 14.9 % (11.5-14.5); Segmented Neutrophils % 72.3 %
--- NOTE | 2018-04-28 13:17 | Emergency Department Note ---
Disposition Clinical Impression: Chronic pancreatitis Qualifiers: Pancreatitis type: unspecified pancreatitis type Qualified Code(s): K86.1 - Other chronic pancreatitis Nausea and vomiting Qualifiers: Vomiting type: unspecified Vomiting Intractability: intractable Qualified Code( s): R11.2 - Nausea with vomiting, unspecified Disposition: Admitted As Inpatient Condition: Good Referrals: Niecy Albarran CNP [Primary Care Provider] - Forms: ED Satisfaction Letter, Work/School Release Abdominal Pain HPI - General Chief Complaint: ED Abdominal Pain Stated Complaint: abd pain, dizziness Time Seen by Provider: 04/28/18 11:26 Source: patient Mode of arrival: ambulatory Limitations: no limitations Nursing Notes Reviewed: Yes Vital Signs Reviewed: Yes - History of Present Illness HPI Narrative: Patient presents today for evaluation of abdominal pain and nausea and vomiting. She states that she had a Penelope-en-Y procedure performed in 2014. Since then she has been dealing with episodes of pancreatitis. She was seen yesterday by Dr. pimentel and had endoscopy performed. His report was consistent with early chronic pancreatitis. The patient states she does not like to come to the hospital and has tried to avoid it. She states that according to Dr. Kumar this caused her to have increasing flares. She states that she has had flareups proximally every 2 weeks since her initial surgery. This episode today is the same as her previous episodes. Unchanged. She states unable to tolerate by mouth for the last couple of days. Pain Scale: 8 - Related Data Home Medications Medication Instructions Recorded Confirmed Tizanidine HCl [Zanaflex] 4 mg PO BID 01/15/16 04/05/18 Venlafaxine XR (24 HR) [Effexor Xr] 75 mg PO DAILY 07/25/17 04/05/18 BuPROPion XL (24 HR) [Wellbutrin 300 mg PO DAILY 08/20/17 04/05/18 Xl] Aripiprazole [Abilify] 20 mg PO DAILY 09/08/17 04/05/18 Cholecalciferol (D-3) [Vitamin D] 5,000 unit PO DAILY 09/08/17 04/05/18 Cyanocobalamin (B-12) [Vitamin B12] 1,000 mcg IM QMONTH 09/08/17 04/05/18 Loratadine [Allergy Relief] 10 mg PO DAILY 12/11/17 04/05/18 Ondansetron [Zofran] 4 mg PO Q8H PRN 12/11/17 04/05/18 Lipase/Protease/Amylase [[place] 1 cap PO QIDAC 12/28/17 04/05/18 6,000 Units Capsule] Montelukast [Singulair] 10 mg PO DAILY 03/08/18 04/05/18 Niacin [Plain Niacin] 500 mg PO DAILY 03/08/18 04/05/18 Pantoprazole Sodium 40 mg PO DAILY 03/08/18 04/05/18 Ranitidine HCl [Acid Identification Printing Machine Setter] 150 mg PO BID 03/08/18 04/05/18 Temazepam [Restoril] 30 mg PO HS 03/08/18 04/05/18 Ferrous Sulfate 324 mg PO DAILY 04/06/18 04/06/18 Previous Rx's Medication Instructions Recorded Metoclopramide [Reglan] 5 mg PO QIDAC #120 tablet 04/09/18 Promethazine [Phenergan] 12.5 mg IVP Q6HR PRN vial 04/09/18 Allergies Allergy/AdvReac Type Severity Reaction Status Date / Time butalbital [From Fioricet] Allergy Hives Verified 04/05/18 15:28 caffeine [From Fioricet] Allergy Hives Verified 04/05/18 15:28 [place] Allergy Hives Verified 04/05/18 15:28 phenytoin [From Dilantin] Allergy Hives Verified 04/05/18 15:28 methocarbamol [From Robaxin] AdvReac Vomiting Verified 04/05/18 15:28 Review of Systems: CONSTITUTIONAL: Generalized weakness and fatigue No weight loss, fever, chills HEENT: Eyes: No visual changes. Ears, Nose, Throat: No hearing loss, difficulty talking or unable to swallow. SKIN: No rash or itching. CARDIOVASCULAR: No chest pain, chest pressure or chest discomfort. No palpitations or edema. RESPIRATORY: No shortness of breath, cough or sputum. GASTROINTESTINAL: Abdominal pain with nausea vomiting and diarrhea. There is no blood in the vomit or the diarrhea. GENITOURINARY: No burning on urination or hematuria. NEUROLOGICAL: Headache and dizziness which she states is likely from dehydration. She feels lightheaded like she might pass out if she stands up too fast. No syncope, paralysis, ataxia, numbness or tingling in the extremities. No change in bowel or bladder control. MUSCULOSKELETAL: No muscle pain, back pain, joint pain or stiffness. Abdominal Pain PMH - Past Medical History Medical history: Reports: asthma, COPD, coronary artery disease, CVA, GERD, hyperlipidemia, myocardial infarction, renal disease, seizures, TIA Female Surgical History: Reports: , cholecystectomy, herniorrhaphy, hysterectomy TECHNICAL ACCOUNT REPRESENTATIVE history: Reports: no TECHNICAL ACCOUNT REPRESENTATIVE history Psychiatric history: Reports: anxiety, bipolar, depression - Social History Smoking status: Never smoker Alcohol use: Reports: none Drug use: Reports: none Physical Exam General: Mild distress secondary to vomiting and abdominal pain Head: Normocephalic Atraumatic Eyes: PERRL, EOMI ENT: Airway patent, no stridor Neck: supple, no meningismus Chest: Lungs clear to auscultation bilateral Cardiac: Regular rate and rhythm, no murmurs, rubs or gallops Abdomen: soft, tender to palpation throughout the abdomen with associated guarding and rebound tenderness, nondistended; Skin: No rash, normal skin tone Neuro: Awake alert and appropriate, conversational, no obvious deficits. - General Limitations: no limitations General appearance: alert Course - Reevaluation(s) Reevaluation #1: Patient was given pain and nausea medicine with some relief. Patient states not quite able to tolerate by mouth at this point. Ketamine was then given to try to help her with pain relief and not with narcotic medication. Ketamine did not significantly improve her symptoms. Patient will be admitted for further pain and nausea management . Unable to tolerate by mouth at this time. Recent EGD showing chronic pancreatitis. Levels are normal. Previous imaging CTs and MRI have been evaluated and then do not show signs of significant disease. Symptoms previously started after Penelope-en-Y. - Consultations Consultation #1: Discussed with hospitalist. Pt accepted for admission. Vital Signs Temperature 97.9 F 04/28/18 11:21 Pulse Rate 61 04/28/18 11:21 Respiratory Rate 18 04/28/18 11:21 Blood Pressure 122/85 04/28/18 11:21 O2 Sat by Pulse Oximetry 98 04/28/18 11:21 Temperature 97.9 F 04/28/18 12:10 Pulse Rate 63 04/28/18 15:24 Respiratory Rate 16 04/28/18 15:24 Blood Pressure 139/87 04/28/18 15:24 O2 Sat by Pulse Oximetry 99 04/28/18 15:24 Oxygen Delivery Oxygen Delivery Room Air Abdominal Pain - Medical Records Medical records reviewed: Yes I reviewed the patient's medical records. - Lab Data Lab results reviewed: Yes I reviewed the patient's lab results. Result diagrams: 04/28/18 11:52 04/28/18 11:52 Lab Results 04/28/18 04/28/18 04/28/18 Range/Units 11:29 11:52 11:52 WBC 7.6 (4.3-11.1) K/mcL RBC 3.60 L (3.82-4.97) M/mcL Hgb 9.9 L (11.5-15.4) g/dL Hct 31.0 L (35.3-44.9) % MCV 86.1 (83.0-100.0) fL MCH 27.5 L (28.0-33.3) pg MCHC 31.9 (31.6-35.5) g/dL RDW 14.9 H (11.5-14.5) % Plt Count 331 (140-400) K/mcL MPV 9.3 L (9.4-12.4) fL Immature Gran % 0.3 (0-4) % Seg Neutrophils % 72.3 % Lymphocytes % 20.3 % Monocytes % 5.4 % Eosinophils % 1.0 % Basophils % 0.7 % Neutrophils # 5.5 (1.6-8.9) K/mcL Lymphocytes # 1.6 (0.6-4.6) K/mcL Monocytes # 0.4 (0.0-1.3) K/mcL Eosinophils # 0.1 (0.0-0.6) K/mcL Basophils # 0.1 (0.0-0.2) K/mcL Sodium 138 (136-145) mEq/L Potassium 3.9 (3.5-5.1) mEq/L Chloride 104 (98-107) mEq/L Carbon Dioxide 27 (23-29) mEq/L BUN 10 (6-20) mg/dL Creatinine 1.02 (0.60-1.20) mg/dL Est GFR ( Amer) > 60 (> 60) Est GFR (Non-Af Amer) 57 L (> 60) BUN/Creatinine Ratio 10 (6-26) Glucose 120 H (70-105) mg/dL Calculated Osmolality 286 (280-300) Calcium 8.8 (8.6-10.3) mg/dL Total Bilirubin 0.3 (0.3-1.0) mg/dL Direct Bilirubin 0.0 (0.0-0.2) mg/dL Indirect Bilirubin 0.3 (0.0-1.2) mg/dL AST 29 (13-39) Units/L ALT 31 (7-52) Units/L Alkaline Phosphatase 78 (34-104) Units/L Serum Total Protein 6.4 (6.4-8.9) g/dL Albumin 4.0 (3.5-5.7) g/dL Globulin 2.4 (2.4-3.5) g/dL Albumin/Globulin Ratio 1.7 (1.1-2.2) Amylase 46 (29-103) Units/L Lipase 81 (11-82) Units/L Urine Color Yellow (Yellow) Urine Clarity Clear (Clear) Urine pH 7.0 (5.0-8.0) pH Units Ur Specific [place] 1.013 (1.010-1.025) Urine Protein Negative (Neg-Trace) mg/dL Urine Glucose (UA) Normal (Normal) mg/dL Urine Ketones Negative (Negative) mg/dL Urine Blood Negative (Negative) Urine Nitrite Negative (Negative) Urine Bilirubin Negative (Negative) Urine Urobilinogen Normal (Normal) mg/dL Ur Leukocyte Esterase Small H (Negative) Urine Microscopic RBC 0-3 (0-3) per hpf Urine Microscopic WBC 0-3 (0-3) per hpf Ur Squamous Epith Cells Moderate H (None-Few) per lpf Urine Bacteria None Seen (None-Few) per hpf Hyaline Casts None Seen (None-Few) per lpf Ur Culture Indicated? YES A (NO) - Radiology Data Radiology results reviewed: Yes I reviewed the patient's radiology results.
[2018-04-28 13:44] LABS: Alanine Aminotransferase 31 Units/L (7-52); Albumin/Globulin Ratio 1.7 (1.1-2.2); Alkaline Phosphatase 78 Units/L (34-104); Amylase 46 Units/L (29-103); Aspartate Amino Transferase 29 Units/L (13-39); BUN/Creatinine Ratio 10 (6-26); Bilirubin,Indirect 0.3 mg/dL (0.0-1.2); Bilirubin,Total 0.3 mg/dL (0.3-1.0); Blood Urea Nitrogen 10 mg/dL (6-20); Calcium 8.8 mg/dL (8.6-10.3); Carbon Dioxide 27 mEq/L (23-29); Chloride 104 mEq/L (98-107); Globulin 2.4 g/dL (2.4-3.5); Glucose 120 mg/dL (70-105); Lipase 81 Units/L (11-82); Osmolality,Calculated 286 (280-300); Potassium 3.9 mEq/L (3.5-5.1); Sodium 138 mEq/L (136-145); Total Protein 6.4 g/dL (6.4-8.9); eGFR For Non-African Americans 57 (> 60)
[2018-04-28] MEDS ORDERED: SODIUM CHLORIDE 0.9% IVPB ONE (14:23)
[2018-04-28] MEDS ORDERED: KETAMINE IVPB ONE (14:23)
[2018-04-28] MEDS ORDERED: OXYCODONE Oral CONC 10 MG/0.5 ML ORAL.SYG SL PRN (17:22)
[2018-04-28] MEDS ORDERED: Naloxone 0.4 MG/ML INJ IVP PRN (17:58)
--- NOTE | 2018-04-28 18:02 | Internal Med History&Physical ---
Date of Encounter: 04/28/18 Time of Encounter: 17:50 Internal Medicine - H&P: HPI Chief complaint: Abdominal pain Admitted From: Home Plans for Post Hospital Care: Home History of present illness: Ms. Astudillo is a 52 year old female with hx of chronic pancreatitis presented to ED with abdominal pain. She had endoscopic ultrasound today and developed worsening pain. She has significant associated nausea and vomiting. Meds have not been helping last couple of days. No fever or chills. Pain is midepigastric as is usual for her. Has watery diarrhea but this is chronic and she takes Creon. No urine symptoms. No CP or SOB. At this time she is having some pain and nausea. Past Med Surg Social Fam HX - Past Medical History Source: patient, old records reviewed Medical history: asthma, COPD, coronary artery disease, CVA, GERD, hyperlipidemia, myocardial infarction, renal disease, seizures, TIA Additional medical history: PANCREATITIS. GASTRIC BYPASS. Carotid Stenosis. Degenerative Lumbar Disease Psychiatric history: anxiety, bipolar, depression - Past Surgical History Surgical History: cholecystectomy, hysterectomy Additional surgical history: GASTRIC BYPASS, Knee Surgery, T&A, Back surgery x2 , NOS, c/s x2, Abdominoplasty - Social History Smoking Status: Never smoker Smokeless Tobacco Status: No Alcohol use: none Drug use: none Current living situation: Home - Independent Activity Level: Independent ambulation - Family History Mother Family Member Ethnicity: Non- Living Status: Hx Family Cardiac Disorders: No Hx Family Respiratory Disorders: No Hx Family Cancer: Yes (Esophageal) Hx Family GI Disorders: No Hx Family Endocrine Disorder: No Hx Family Neuromuscular Disorders: No Hx Family Neurologic Disorders: No Hx Family HEENT Disorders: No Hx Family Autoimmune Disorders: No Father Family Member Ethnicity: Non- Living Status: Hx Family Cancer: Yes (Prostate) Hx Family Neurologic Disorders: Yes (Alzheimer's disease) Brother Family Member Ethnicity: Non- Living Status: Still Living Sister Adopted: No Family Member Ethnicity: Non- Living Status: Hx Family Cardiac Disorders: Yes Hx Family Respiratory Disorders: No Hx Family Cancer: Yes Hx Family GI Disorders: No Hx Family Endocrine Disorder: No Hx Family Neuromuscular Disorders: No Hx Family Neurologic Disorders: No Hx Family HEENT Disorders: No Hx Family Autoimmune Disorders: No Internal Medicine - H&P: Meds Tizanidine HCl [Zanaflex] 4 mg PO BID 01/15/16 [History] Venlafaxine XR (24 HR) [Effexor Xr] 75 mg PO DAILY 07/25/17 [History] BuPROPion XL (24 HR) [Wellbutrin Xl] 300 mg PO DAILY 08/20/17 [History] Aripiprazole [Abilify] 20 mg PO DAILY 09/08/17 [History] Cholecalciferol (D-3) [Vitamin D] 5,000 unit PO DAILY 09/08/17 [History] Cyanocobalamin (B-12) [Vitamin B12] 1,000 mcg IM QMONTH 09/08/17 [History] Loratadine [Allergy Relief] 10 mg PO DAILY 12/11/17 [History] Ondansetron [Zofran] 4 mg PO Q8H PRN 12/11/17 [History] Lipase/Protease/Amylase [Creon Dr 6,000 Units Capsule] 1 cap PO QIDAC 12/28/17 [ History] Montelukast [Singulair] 10 mg PO DAILY 03/08/18 [History] Niacin [Plain Niacin] 500 mg PO DAILY 03/08/18 [History] Pantoprazole Sodium 40 mg PO DAILY 03/08/18 [History] Ranitidine HCl [Acid Garbage Collector] 150 mg PO BID 03/08/18 [History] Temazepam [Restoril] 30 mg PO HS 03/08/18 [History] Ferrous Sulfate 324 mg PO DAILY 04/06/18 [History] Metoclopramide [Reglan] 5 mg PO QIDAC #120 tablet 04/09/18 [Rx] 3 Allergy/AdvReac Type Severity Reaction Status Date / Time butalbital [From Fioricet] Allergy Hives Verified 04/28/18 16:30 caffeine [From Fioricet] Allergy Hives Verified 04/28/18 16:30 [place] Allergy Hives Verified 04/28/18 16:30 phenytoin [From Dilantin] Allergy Hives Verified 04/28/18 16:30 methocarbamol [From Robaxin] AdvReac Vomiting Verified 04/28/18 16:30 All Systems PM: A 10-system review of systems was performed and is negative for pertinent findings except as documented above in the HPI. - Constitutional Constitutional: fatigue - EENT Eyes: no discharge Ears: no ear pain Nose, mouth and throat: dry mouth, no dental pain, no odynophagia - Cardiovascular Cardiovascular ROS IM: no dyspnea, no irregular heart rhythm, no syncope - Respiratory Respiratory: no dyspnea, no wheezing, no chest congestion - Gastrointestinal Gastrointestinal: abdominal pain, diarrhea, dyspepsia, loose stools, nausea, vomiting - Genitourinary Genitourinary: no dysuria, no urinary frequency, no urinary hesitancy - Musculoskeletal Musculoskeletal ROS IM: no back pain, no joint swelling - Integumentary Integumentary IM: no erythema, no rash - Neurological Neurological ROS: no abnormal gait, no numbness, no tingling - Endocrine Endocrine IM: no cold intolerance, no polyuria - Hematologic/Lymphatic Hematologic/Lymphatic: no easy bleeding - Allergic/Immunologic Allergic/Immunologic: no throat swelling, no itchy eyes - Constitutional Vitals: Temp Pulse Resp BP Pulse Ox 97.9 F 63 16 185/105 99 04/28/18 12:10 04/28/18 15:24 04/28/18 17:23 04/28/18 17:23 04/28/18 15:24 General appearance: Present: mild distress, A&O X 3, answers questions appropriately - Head Head exam: Present: atraumatic, normocephalic - Eye Eye exam: Present: EOMI, conjuntiva pink - ENT ENT exam: Present: mucous membranes dry, normal external ear exam - Neck Neck exam general surgery: Present: normal inspection. Absent: tenderness - Respiratory Respiratory exam: Present: CTAB. Absent: rales, rhonchi, wheezes - Cardiovascular Cardiovascular exam: Present: RRR. Absent: systolic murmur, tachycardia - GI/Abdominal GI/Abdominal exam: Present: distended, soft, tenderness - Extremities Exam Extremities exam: Present: warm. Absent: tenderness - Neurological Exam Neurological exam: Present: alert, oriented X3, no focal deficits - Skin Skin exam: Present: dry, warm. Absent: rash Internal Med - H&P Results - Labs CBC & Chem 7: 04/28/18 11:52 04/28/18 11:52 - Assessment and plan (1) Acute on chronic pancreatitis Current Visit: No Status: Acute Assessment and plan: Pt with hx of chronic pancreatitis. She has had worsening over last few days but worse today after procedure. Admit. IV fluids, pain control. Antiemetics. NPO at this time. No need for abx. Hopefully will improve in 2-3 days. (2) Dehydration Current Visit: No Status: Acute Assessment and plan: IV fluids ordered for tonight. Reassess in AM. (3) Hypertension Current Visit: No Status: Chronic Assessment and plan: Pt denies HTN and meds at this time. Most likely worsened due to pain. PRN meds ordered. Qualifiers: Hypertension type: essential hypertension Qualified Code(s): I10 - Essential (primary) hypertension (4) Intractable nausea and vomiting Current Visit: No Status: Acute Assessment and plan: PRN antiemetics ordered. Qualifiers: Vomiting type: unspecified Qualified Code(s): R11.2 - Nausea with vomiting , unspecified (5) GERD (gastroesophageal reflux disease) Current Visit: No Status: Chronic Assessment and plan: Continue PPI. Qualifiers: Esophagitis presence: esophagitis presence not specified Qualified Code(s) : K21.9 - Gastro-esophageal reflux disease without esophagitis (6) Exocrine pancreatic insufficiency Current Visit: No Status: Chronic Assessment and plan: Creon with meals. (7) Anxiety and depression Current Visit: No Status: Chronic Assessment and plan: Will continue home meds as tolerated. - Time Spent With Patient Total time spent is greater than 50% in coordination of care (as documented) at patient's floor/unit and/or counseling patient:
[2018-04-28] MEDS: OXYCODONE Oral CONC 10 MG/0.5 ML ORAL.SYG SL PRN (18:52)
[2018-04-28] MEDS: Promethazine 12.5 MG in 0.9 % Sodium Chloride 50 ML IVPB PRN (20:07)
[2018-04-28] MEDS ORDERED: 0.9 % Sodium Chloride 1,000 ML IVC SCH (20:45)
[2018-04-29] MEDS: OXYCODONE Oral CONC 10 MG/0.5 ML ORAL.SYG SL PRN ×4 (00:54→21:02)
[2018-04-29] MEDS: *HR* Heparin 5,000 UNIT/ML VIAL SQ SCH ×3 (00:54→16:26)
[2018-04-29] MEDS: Promethazine 12.5 MG in 0.9 % Sodium Chloride 50 ML IVPB PRN ×3 (02:49→21:02)
[2018-04-29 05:52] LABS: Basophils # 0.1 K/mcL (0.0-0.2); Basophils % 0.8 %; Eosinophils # 0.1 K/mcL (0.0-0.6); Eosinophils % 2.2 %; Hematocrit 28.7 % (35.3-44.9); Hemoglobin 9.3 g/dL (11.5-15.4); Immature Granulocytes % 0.2 % (0-4); Lymphocytes # 2.8 K/mcL (0.6-4.6); Lymphocytes % 46.9 %; Mean Corpuscular HGB Conc 32.4 g/dL (31.6-35.5); Mean Corpuscular Hemoglobin 28.1 pg (28.0-33.3); Mean Corpuscular Volume 86.7 fL (83.0-100.0); Mean Platelet Volume 9.1 fL (9.4-12.4); Monocytes # 0.3 K/mcL (0.0-1.3); Monocytes % 4.4 %; Neutrophils # 2.7 K/mcL (1.6-8.9); Platelet Count 293 K/mcL (140-400); Red Blood Count 3.31 M/mcL (3.82-4.97); Segmented Neutrophils % 45.5 %
[2018-04-29 06:10] LABS: Alanine Aminotransferase 25 Units/L (7-52); Albumin 3.5 g/dL (3.5-5.7); Albumin/Globulin Ratio 1.7 (1.1-2.2); Alkaline Phosphatase 66 Units/L (34-104); Aspartate Amino Transferase 22 Units/L (13-39); BUN/Creatinine Ratio 9 (6-26); Bilirubin,Total 0.3 mg/dL (0.3-1.0); Blood Urea Nitrogen 8 mg/dL (6-20); Calcium 8.3 mg/dL (8.6-10.3); Carbon Dioxide 26 mEq/L (23-29); Chloride 108 mEq/L (98-107); Globulin 2.1 g/dL (2.4-3.5); Glucose 118 mg/dL (70-105); Osmolality,Calculated 287 (280-300); Potassium 3.9 mEq/L (3.5-5.1); Sodium 139 mEq/L (136-145); Total Protein 5.6 g/dL (6.4-8.9); eGFR For Non-African Americans > 60 (> 60)
[2018-04-29] MEDS: Venlafaxine XR (24 HR) 37.5 MG CAP.ER.24H PO SCH (09:52)
[2018-04-29] MEDS: ARIPiprazole 10 MG TABLET PO SCH (09:52)
[2018-04-29] MEDS: Ondansetron 4 MG/2 ML VIAL IVP PRN ×2 (09:52→19:54)
[2018-04-29] MEDS: BuPROPion XL (24 HR) 150 MG TABLET PO SCH (09:52)
[2018-04-29] MEDS ORDERED: Ringers Solution, Lactated 1,000 ML IVC SCH (10:15)
[2018-04-29] MEDS ORDERED: OXYCODONE Oral CONC 10 MG/0.5 ML ORAL.SYG SL PRN (16:56)
--- NOTE | 2018-04-29 17:07 | Internal Med Progress Note ---
Hospitalist Progress Note - Encounter Date of Encounter: 04/29/18 Time of Encounter: 16:40 - Subjective Interval History: Ms Astudillo is currently admitted for acute on chronic pancreatitis. She remains moderate to high risk due to potential for worsening clinical status. Ms Astudillo is beginning to improve. She is tolerating some PO and feels hungry. Nausea improving. No fever or chills. No CP or SOB. - Exam Vitals: Temp Pulse Resp BP Pulse Ox 97.3 F L 68 14 103/66 95 04/29/18 13:59 04/29/18 13:59 04/29/18 13:59 04/29/18 13:59 04/29/18 13:59 Exam: General: Alert and oriented. Resting comfortably in bed at this time. Skin: Normal color, no rash, no lesions. Head: NC, atraumatic EENT: EOM, pupils equal, round and reactive. Cardiovascular: Normal S1 & S2, no rubs, murmurs or gallops. No JVD. Pulse regular. Lungs: Normal breath sounds, no wheezes or crackles. Good inspiratory effort Abdomen: Soft, some tenderness epigastric area with no peritoneal signs. Normal bowel sounds Extremities: No deformity, no edema or tenderness, no joint swelling or clubbing. Neurological: Normal cognition and motor skills. No focal deficit noted. Pulses: Carotid and radial pulses normal +2. - Assessment and Plan (1) Acute on chronic pancreatitis Current Visit: No Status: Acute Assessment and Plan: Slowly improving. Decrease pain medicine dosing. Increase diet to soft. Anticipate d/c tomorrow. (2) Dehydration Current Visit: No Status: Resolved Assessment and Plan: Stop IV fluids at this time. (3) Hypertension Current Visit: No Status: Chronic Assessment and Plan: Controlled at this time. (4) Intractable nausea and vomiting Current Visit: No Status: Acute Assessment and Plan: Improving with current treatment. ? if component of gastroparesis here. Continue meds as ordered. (5) GERD (gastroesophageal reflux disease) Current Visit: No Status: Chronic Assessment and Plan: Continue PPI. (6) Exocrine pancreatic insufficiency Current Visit: No Status: Chronic Assessment and Plan: Creon with meals. (7) Anxiety and depression Current Visit: No Status: Chronic Assessment and Plan: Will continue home meds as tolerated. - Time Spent with Patient Total time spent is greater than 50% in coordination of care (as documented) at patient's floor/unit and/or counseling patient: Plan of Care Discussed with: patient Internal Medicine: Result - Labs CBC & Chem 7: 04/29/18 05:34 04/29/18 05:34 Labs: Short CBC 04/29/18 Range/Units 05:34 WBC 5.9 (4.3-11.1) K/mcL Hgb 9.3 L (11.5-15.4) g/dL Hct 28.7 L (35.3-44.9) % Plt Count 293 (140-400) K/mcL Neutrophils # 2.7 (1.6-8.9) K/mcL BMP 04/29/18 05:34 Sodium 139 Potassium 3.9 Chloride 108 H Carbon Dioxide 26 BUN 8 Creatinine 0.94 Glucose 118 H Calcium 8.3 L Liver Function 04/29/18 Range/Units 05:34 Total Bilirubin 0.3 (0.3-1.0) mg/dL AST 22 (13-39) Units/L ALT 25 (7-52) Units/L Alkaline Phosphatase 66 (34-104) Units/L Albumin 3.5 (3.5-5.7) g/dL Consult Discharge Plan - Plan Referrals: Niecy Albarran [Advanced Practice Nurse] - (3) Hypertension Qualifiers: Hypertension type: essential hypertension Qualified Code(s): I10 - Essential (primary) hypertension (4) Intractable nausea and vomiting Qualifiers: Vomiting type: unspecified Qualified Code(s): R11.2 - Nausea with vomiting, unspecified (5) GERD (gastroesophageal reflux disease) Qualifiers: Esophagitis presence: esophagitis presence not specified Qualified Code(s): K21.9 - Gastro-esophageal reflux disease without esophagitis
[2018-04-30] MEDS: *HR* Heparin 5,000 UNIT/ML VIAL SQ SCH ×2 (00:22→08:44)
[2018-04-30] MEDS: Ondansetron 4 MG/2 ML VIAL IVP PRN (03:38)
[2018-04-30] MEDS: OXYCODONE Oral CONC 10 MG/0.5 ML ORAL.SYG SL PRN (03:38)
[2018-04-30 04:11] LABS: Hematocrit 30.8 % (35.3-44.9); Hemoglobin 10.1 g/dL (11.5-15.4); Mean Corpuscular HGB Conc 32.8 g/dL (31.6-35.5); Mean Corpuscular Hemoglobin 28.1 pg (28.0-33.3); Mean Corpuscular Volume 85.6 fL (83.0-100.0); Mean Platelet Volume 9.3 fL (9.4-12.4); Platelet Count 330 K/mcL (140-400); Red Cell Distribution Width 14.6 % (11.5-14.5)
[2018-04-30] MEDS: Promethazine 12.5 MG in 0.9 % Sodium Chloride 50 ML IVPB PRN (04:12)
[2018-04-30 04:23] LABS: Albumin 3.9 g/dL (3.5-5.7); Albumin/Globulin Ratio 1.6 (1.1-2.2); Bilirubin,Total 0.3 mg/dL (0.3-1.0); Calcium 9.2 mg/dL (8.6-10.3); Globulin 2.5 g/dL (2.4-3.5); Potassium 3.7 mEq/L (3.5-5.1); Total Protein 6.4 g/dL (6.4-8.9)
[2018-04-30 06:57] VITALS: BP 110/72
[2018-04-30] MEDS: Venlafaxine XR (24 HR) 37.5 MG CAP.ER.24H PO SCH (08:44)
[2018-04-30] MEDS: BuPROPion XL (24 HR) 150 MG TABLET PO SCH (08:45)
[2018-04-30] MEDS: ARIPiprazole 10 MG TABLET PO SCH (08:49)
--- NOTE | 2018-04-30 09:10 | Discharge Summary ---
- NOTES TO OUTPATIENT PROVIDER Notes to Outpatient Provider: Admitted for recurrent episode of chronic pancreatitis. She improved and tolerating PO diet now. She feels that IV Phenergan helps her the most. She was given it at discharge last visit. I explained risks of this medicine and agreed to give her a small amount for severe nausea. Date of Encounter: 04/30/18 Time of Encounter: 09:06 - Discharge Diagnosis (1) Acute on chronic pancreatitis Priority: Primary Status: Acute (2) Dehydration Priority: Secondary Status: Resolved (3) Hypertension Priority: Secondary Status: Chronic Qualifiers: Hypertension type: essential hypertension Qualified Code(s): I10 - Essential (primary) hypertension (4) Intractable nausea and vomiting Priority: Secondary Status: Resolved Qualifiers: Vomiting type: unspecified Qualified Code(s): R11.2 - Nausea with vomiting , unspecified (5) GERD (gastroesophageal reflux disease) Priority: Secondary Status: Chronic Qualifiers: Esophagitis presence: esophagitis presence not specified Qualified Code(s) : K21.9 - Gastro-esophageal reflux disease without esophagitis (6) Exocrine pancreatic insufficiency Priority: Secondary Status: Chronic (7) Anxiety and depression Priority: Secondary Status: Chronic Hospital course: Ms. Astudillo is a 52 year old female with hx of chronic pancreatitis and multiple recurrent admissions presented to ED with complaints of abd pain with nausea and vomiting. She had just had an endoscopic ultrasound showing calcification in pancreas. She was subsequently admitted. Ms Astudillo was admitted to med surg. She was made NPO and started on IV antiemetics and pain meds. She did OK overnight and diet was increased to liquids the next morning. She continued to slowly improve and her diet was advanced for dinner which she tolerated. At this time she is afebrile and tolerating PO. Pain and nausea are controlled. She is ready for discharge home. She requested IV Phenergan at home. She was given this the last admission. I explained to her the risks of the medication. She feels it works the best and that she will not come to the hospital if she could use it at home. I agreed to give her a small amount to use as needed at home for severe nausea. She is to notify her GI doctor for further refills. Discharge discussed with: patient, nurse - Time Spent with Patient Total time spent providing and/or coordinating discharge services: 41min - Discharge Medications Prescriptions: Promethazine [Phenergan] 12.5 mg IV Q8HR PRN #5 vial PRN Reason: Nausea And Vomiting Home Medications: Tizanidine HCl [Zanaflex] 4 mg PO BID 01/15/16 [History] Venlafaxine XR (24 HR) [Effexor Xr] 75 mg PO DAILY 07/25/17 [History] BuPROPion XL (24 HR) [Wellbutrin Xl] 300 mg PO DAILY 08/20/17 [History] Aripiprazole [Abilify] 20 mg PO DAILY 09/08/17 [History] Cholecalciferol (D-3) [Vitamin D] 5,000 unit PO DAILY 09/08/17 [History] Cyanocobalamin (B-12) [Vitamin B12] 1,000 mcg IM QMONTH 09/08/17 [History] Loratadine [Allergy Relief] 10 mg PO DAILY 12/11/17 [History] Ondansetron [Zofran] 4 mg PO Q8H PRN 12/11/17 [History] Lipase/Protease/Amylase [Creon Dr 6,000 Units Capsule] 1 cap PO QIDAC 12/28/17 [ History] Montelukast [Singulair] 10 mg PO DAILY 03/08/18 [History] Niacin [Plain Niacin] 500 mg PO DAILY 03/08/18 [History] Pantoprazole Sodium 40 mg PO DAILY 03/08/18 [History] Ranitidine HCl [Acid Labor Relations Representative] 150 mg PO BID 03/08/18 [History] Temazepam [Restoril] 30 mg PO HS 03/08/18 [History] Ferrous Sulfate 324 mg PO DAILY 04/06/18 [History] Metoclopramide [Reglan] 5 mg PO QIDAC #120 tablet 04/09/18 [Rx] Promethazine [Phenergan] 12.5 mg IV Q8HR PRN #5 vial 04/30/18 [Rx] Allergies/Adverse Reactions: 3 Allergy/AdvReac Type Severity Reaction Status Date / Time butalbital [From Fioricet] Allergy Hives Verified 04/28/18 16:30 caffeine [From Fioricet] Allergy Hives Verified 04/28/18 16:30 [place] Allergy Hives Verified 04/28/18 16:30 phenytoin [From Dilantin] Allergy Hives Verified 04/28/18 16:30 methocarbamol [From Robaxin] AdvReac Vomiting Verified 04/28/18 16:30 Date of admission: 04/28/18 18:12 Primary care physician: Niecy Albarran Discharging clinician: Bernabe Sterling Anticipated date of discharge: 04/30/18 - Constitutional Vitals: Temp Pulse Resp BP Pulse Ox 98.0 F 92 16 110/72 96 04/30/18 06:55 04/30/18 06:55 04/30/18 06:55 04/30/18 06:55 04/30/18 06:55 General appearance: Present: A&O X 3, answers questions appropriately - Head Head exam: Present: normocephalic - Eye Eye exam: Present: EOMI, conjuntiva pink - ENT ENT exam: Present: mucous membranes moist - Respiratory Respiratory exam: Present: CTAB. Absent: rales, rhonchi, wheezes - Cardiovascular Cardiovascular exam: Present: RRR. Absent: tachycardia - GI/Abdominal GI/Abdominal exam: Present: normal bowel sounds, soft. Absent: tenderness - Extremities Exam Extremities exam: Present: warm. Absent: tenderness - Neurological Exam Neurological exam: Present: alert, oriented X3 - Skin Skin exam: Present: dry, warm - Patient Status Disposition: Home Health Service Condition: Good Functional capacity at discharge: independent ambulation Overall status at discharge: patient is progressing back to baseline - Discharge Instructions Follow Up With: Niecy Albarran [Advanced Practice Nurse] - - Diet and Activity Activity: increase activity as tolerated, resume usual activities as tolerated Diet: advance to your usual diet
--- NOTE | 2018-04-30 14:37 | Physician Discharge Referral ---
Home Health/Hosp Referral Info Transfer to: Home Health Provider in Charge Post Discharge: PCP - Diagnosis (1) Acute on chronic pancreatitis Priority: Primary Status: Acute (2) Dehydration Priority: Secondary Status: Resolved (3) Hypertension Priority: Secondary Status: Chronic (4) Intractable nausea and vomiting Priority: Secondary Status: Resolved (5) GERD (gastroesophageal reflux disease) Priority: Secondary Status: Chronic (6) Exocrine pancreatic insufficiency Priority: Secondary Status: Chronic (7) Anxiety and depression Status: Chronic - Respiratory Orders None Smoking Cessation: Smoking cessation has been advised. For more information, call the [place] Tobacco Quit Line at 2-576-KEGN-NOW. - Diet/Nutrition Diet/Nutrition Orders: Mechanical Soft - Activity Activity Orders: Up ad martin - Services Needed Following services are medically necessary services: Nursing - Transfer Medications Prescriptions: Promethazine [Phenergan] 12.5 mg IV Q8HR PRN #5 vial PRN Reason: Nausea And Vomiting Home Medications: Tizanidine HCl [Zanaflex] 4 mg PO BID 01/15/16 [History] Venlafaxine XR (24 HR) [Effexor Xr] 75 mg PO DAILY 07/25/17 [History] BuPROPion XL (24 HR) [Wellbutrin Xl] 300 mg PO DAILY 08/20/17 [History] Aripiprazole [Abilify] 20 mg PO DAILY 09/08/17 [History] Cholecalciferol (D-3) [Vitamin D] 5,000 unit PO DAILY 09/08/17 [History] Cyanocobalamin (B-12) [Vitamin B12] 1,000 mcg IM QMONTH 09/08/17 [History] Loratadine [Allergy Relief] 10 mg PO DAILY 12/11/17 [History] Ondansetron [Zofran] 4 mg PO Q8H PRN 12/11/17 [History] Lipase/Protease/Amylase [Creon Dr 6,000 Units Capsule] 1 cap PO QIDAC 12/28/17 [ History] Montelukast [Singulair] 10 mg PO DAILY 03/08/18 [History] Niacin [Plain Niacin] 500 mg PO DAILY 03/08/18 [History] Pantoprazole Sodium 40 mg PO DAILY 03/08/18 [History] Ranitidine HCl [Acid Counter Maker] 150 mg PO BID 03/08/18 [History] Temazepam [Restoril] 30 mg PO HS 03/08/18 [History] Ferrous Sulfate 324 mg PO DAILY 04/06/18 [History] Metoclopramide [Reglan] 5 mg PO QIDAC #120 tablet 04/09/18 [Rx] Promethazine [Phenergan] 12.5 mg IV Q8HR PRN #5 vial 04/30/18 [Rx] Allergies/Adverse Reactions: 3 Allergy/AdvReac Type Severity Reaction Status Date / Time butalbital [From Fioricet] Allergy Hives Verified 04/28/18 16:30 caffeine [From Fioricet] Allergy Hives Verified 04/28/18 16:30 [place] Allergy Hives Verified 04/28/18 16:30 phenytoin [From Dilantin] Allergy Hives Verified 04/28/18 16:30 methocarbamol [From Robaxin] AdvReac Vomiting Verified 04/28/18 16:30 Certification: Further, I certify that my clinical findings support that this patient is homebound (i.e. absences from home require considerable and taxing effort and are for medical reasons or methodist services or infrequently or short duration when for other reasons) because: Homebound Reason: Patient requires assistance of a person or device to safely leave home Attestation: My signature below is to certify that this patient is under my care and that I, or nurse practitioner, or a physician's veterinary technician assistant working with me, has a face-to -face encounter with this patient.
== END 2018-04-30 10:20 | disposition home health service (06) | DRG 282 ==
LOC: EMEROO 11:19 → 3ANU 11:19 → SUATTDRO 16:35 → 3ANU 17:40
PROVIDERS: ADMIT Internal Medicine; ATTEND Internal Medicine

== ENCOUNTER 2018-05-11 19:31 | Observation (INO) ==
--- NOTE | 2018-05-11 20:17 | Emergency Department Note ---
Disposition Clinical Impression: Epigastric abdominal pain, History of pancreatitis Nausea & vomiting Qualifiers: Vomiting type: unspecified Vomiting Intractability: non-intractable Qualified Code(s): R11.2 - Nausea with vomiting, unspecified Disposition: Admitted As Inpatient Condition: Fair Referrals: Niecy Albarran CNP [Primary Care Provider] - Forms: ED Satisfaction Letter, Work/School Release Time of Disposition: 21:11 Abdominal Pain HPI - General Chief Complaint: ED Abdominal Pain Stated Complaint: abdominal pain Time Seen by Provider: 05/11/18 19:50 Source: patient Mode of arrival: ambulatory Limitations: no limitations Nursing Notes Reviewed: Yes Vital Signs Reviewed: Yes - History of Present Illness HPI Narrative: Patient is a 52-year-old female with past medical history of gastric bypass, subsequent compensation of chronic pancreatitis. She states that she has had multiple episodes of pancreatitis in the past, usually around every 2 weeks. Denies any alcohol use, any stenting of the pancreatic ducts in the past. She has a right chest port that she gives herself fluids through due to chronic nausea. She presents today due to epigastric pain that radiates to the right upper quadrant, described as sharp in nature. She states it feels like all previous episodes of otitis. Does state that she had a cholecystectomy in the past. She denies any fevers, coughs patient, diarrhea, any dysuria, hematuria. She follows with Dr. Currie and Dr. Avelar here for chronic pancreatitis. She states that she usually gets admitted every time that she presents to the ER. She also states that Phenergan and Nubain work well for her. Pain Scale: 10 - Related Data Home Medications Medication Instructions Recorded Confirmed Tizanidine HCl [Zanaflex] 4 mg PO BID 01/15/16 04/28/18 Venlafaxine XR (24 HR) [Effexor Xr] 75 mg PO DAILY 07/25/17 04/28/18 BuPROPion XL (24 HR) [Wellbutrin 300 mg PO DAILY 08/20/17 04/28/18 Xl] Aripiprazole [Abilify] 20 mg PO DAILY 09/08/17 04/28/18 Cholecalciferol (D-3) [Vitamin D] 5,000 unit PO DAILY 09/08/17 04/28/18 Cyanocobalamin (B-12) [Vitamin B12] 1,000 mcg IM QMONTH 12/18/17 08/07/18 Loratadine [Allergy Relief] 10 mg PO DAILY 12/11/17 04/28/18 Ondansetron [Zofran] 4 mg PO Q8H PRN 12/11/17 04/28/18 Lipase/Protease/Amylase [Siv[place]umar [place] 1 cap PO QIDAC 12/28/17 04/28/18 6,000 Units Capsule] Montelukast [Singulair] 10 mg PO DAILY 03/08/18 04/28/18 Niacin [Plain Niacin] 500 mg PO DAILY 03/08/18 04/28/18 Pantoprazole Sodium 40 mg PO DAILY 03/08/18 04/28/18 Ranitidine HCl [Acid Market Research Manager] 150 mg PO BID 03/08/18 04/28/18 Temazepam [Restoril] 30 mg PO HS 03/08/18 04/28/18 Ferrous Sulfate 324 mg PO DAILY 04/06/18 04/28/18 Previous Rx's Medication Instructions Recorded Metoclopramide [Reglan] 5 mg PO QIDAC #120 tablet 04/09/18 Promethazine [Phenergan] 12.5 mg IV Q8HR PRN #5 vial 04/30/18 Allergies Allergy/AdvReac Type Severity Reaction Status Date / Time butalbital [From Fioricet] Allergy Hives Verified 04/28/18 16:30 caffeine [From Fioricet] Allergy Hives Verified 04/28/18 16:30 [place] Allergy Hives Verified 04/28/18 16:30 phenytoin [From Dilantin] Allergy Hives Verified 04/28/18 16:30 methocarbamol [From Robaxin] AdvReac Vomiting Verified 04/28/18 16:30 All systems ED: reviewed and negative except as stated. Constitutional: Denies: fever Cardiovascular: Denies: chest pain, palpitations Respiratory: Denies: cough, dyspnea, wheezes Gastrointestinal: Reports: abdominal pain, nausea, vomiting. Denies: diarrhea, constipation Genitourinary: Denies: urgency, dysuria, frequency, hematuria Neurological: Denies: headache, weakness, numbness Abdominal Pain PMH - Past Medical History Medical history: Reports: asthma, COPD, coronary artery disease, CVA, GERD, hyperlipidemia, myocardial infarction, renal disease, seizures, TIA Female Surgical History: Reports: , cholecystectomy, herniorrhaphy, hysterectomy SOCIAL MEDIA EXECUTIVE history: Reports: no SOCIAL MEDIA EXECUTIVE history Psychiatric history: Reports: anxiety, bipolar, depression - Social History Smoking status: Never smoker Alcohol use: Reports: none Drug use: Reports: none Physical Exam - General Limitations: no limitations General appearance: alert, in no apparent distress - Head Head exam: atraumatic, normocephalic, normal inspection - Eye Eye exam: Present: normal appearance, PERRL, EOMI - ENT ENT exam: normal exam, normal oropharynx, mucous membranes moist - Neck Neck exam: Present: normal inspection, full ROM, trachea midline - Chest Chest inspection: Present: normal inspection, symmetric chest wall rise - Respiratory Respiratory exam: Present: normal lung sounds bilaterally - Cardiovascular Cardiovascular exam: Present: regular rate, normal rhythm, normal heart sounds - Abdominal Exam Abdominal exam: Present: soft, tenderness (Epigastric tenderness, moderate). Absent: distention, guarding, rebound, rigidity - Extremities Exam Extremities exam: Present: normal inspection, full ROM. Absent: tenderness, pedal edema - Neurological Exam Neurological exam: Present: alert, oriented X3 - Psychiatric Psychiatric exam: Present: normal affect, normal mood - Skin Skin exam: Present: warm, dry, intact, normal color Course Course Narrative: Patient tachycardic on presentation. Otherwise, the rest of the vitals within normal limits. Physical exam shows epigastric tenderness, moderate, mild voluntary guarding. The rest of physical exam was benign. Patient does have a right chest port. We will give the patient normal saline bolus, Nubain, Phenergan. We will try to get patient's symptoms under control. We will check basic labs, lipase. If she has intractable nausea and vomiting/abdominal pain, will consider admission. 21:12 lipase elevated. Urinalysis negative for UTI. Patient reassessed and is still having pain. She was given fentanyl additionally. Continues to have intractable abdominal pain, nausea, vomiting. Normal saline bolus infusing. Heart rate has improved from 120 down to 110. Accepted by Dr. Chaparro Vital Signs Temperature 98.4 F 05/11/18 19:38 Pulse Rate 120 05/11/18 19:38 Respiratory Rate 20 05/11/18 19:38 Blood Pressure 186/120 05/11/18 19:38 O2 Sat by Pulse Oximetry 100 05/11/18 19:38 Temperature 99.1 F 05/11/18 19:58 Pulse Rate 110 05/11/18 20:28 Respiratory Rate 18 05/11/18 20:28 Blood Pressure 155/108 05/11/18 20:28 O2 Sat by Pulse Oximetry 97 05/11/18 20:28 Oxygen Delivery Oxygen Delivery Room Air Abdominal Pain - MDM Narrative Medical decision making narrative: Patient tachycardic on presentation. Otherwise, the rest of the vitals within normal limits. Physical exam shows epigastric tenderness, moderate, mild voluntary guarding. The rest of physical exam was benign. Patient does have a right chest port. We will give the patient normal saline bolus, Nubain, Phenergan. We will try to get patient's symptoms under control. We will check basic labs, lipase. If she has intractable nausea and vomiting/abdominal pain, will consider admission. 21:12 lipase elevated. Urinalysis negative for UTI. Patient reassessed and is still having pain. She was given fentanyl additionally. Continues to have intractable abdominal pain, nausea, vomiting. Normal saline bolus infusing. Heart rate has improved from 120 down to 110. Accept[address] Dr. Chaparro - Medical Records Medical records reviewed: Yes I reviewed the patient's medical records. - Lab Data Lab results reviewed: Yes I reviewed the patient's lab results. Result diagrams: 05/11/18 20:02 05/11/18 20:02 Lab Results 05/11/18 05/11/18 05/11/18 Range/Units 19:37 19:37 20:02 WBC 11.0 (4.3-11.1) K/mcL RBC 3.97 (3.82-4.97) M/mcL Hgb 11.0 L (11.5-15.4) g/dL Hct 33.9 L (35.3-44.9) % MCV 85.4 (83.0-100.0) fL MCH 27.7 L (28.0-33.3) pg MCHC 32.4 (31.6-35.5) g/dL RDW 15.6 H (11.5-14.5) % Plt Count 393 (140-400) K/mcL MPV 8.9 L (9.4-12.4) fL Immature Gran % 0.3 (0-4) % Seg Neutrophils % 71.7 % Lymphocytes % 21.8 % Monocytes % 5.2 % Eosinophils % 0.5 % Basophils % 0.5 % Neutrophils # 7.9 (1.6-8.9) K/mcL Lymphocytes # 2.4 (0.6-4.6) K/mcL Monocytes # 0.6 (0.0-1.3) K/mcL Eosinophils # 0.1 (0.0-0.6) K/mcL Basophils # 0.1 (0.0-0.2) K/mcL Sodium (136-145) mEq/L Potassium (3.5-5.1) mEq/L Chloride (98-107) mEq/L Carbon Dioxide (23-29) mEq/L BUN (6-20) mg/dL Creatinine (0.60-1.20) mg/dL Est GFR ( Amer) (> 60) Est GFR (Non-Af Amer) (> 60) BUN/Creatinine Ratio (6-26) Glucose (70-105) mg/dL Calculated Osmolality (280-300) Lactic Acid (0.5-2.2) mmol/L Calcium (8.6-10.3) mg/dL Total Bilirubin (0.3-1.0) mg/dL Direct Bilirubin (0.0-0.2) mg/dL Indirect Bilirubin (0.0-1.2) mg/dL AST (13-39) Units/L ALT (7-52) Units/L Alkaline Phosphatase (34-104) Units/L Serum Total Protein (6.4-8.9) g/dL Albumin (3.5-5.7) g/dL Globulin (2.4-3.5) g/dL Albumin/Globulin Ratio (1.1-2.2) Lipase (11-82) Units/L Urine Color Yellow (Yellow) Urine Clarity Clear (Clear) Urine pH 6.5 (5.0-8.0) pH Units Ur Specific [place] 1.013 (1.010-1.025) Urine Protein Negative (Neg-Trace) mg/dL Urine Glucose (UA) Normal (Normal) mg/dL Urine Ketones Negative (Negative) mg/dL Urine Blood Negative (Negative) Urine Nitrite Negative (Negative) Urine Bilirubin Negative (Negative) Urine Urobilinogen Normal (Normal) mg/dL Ur Leukocyte Esterase Negative (Negative) Ur Culture Indicated? NO (NO) Urine Test Negative (Negative) 05/11/18 05/11/18 Range/Units 20:02 20:02 WBC (4.3-11.1) K/mcL RBC (3.82-4.97) M/mcL Hgb (11.5-15.4) g/dL Hct (35.3-44.9) % MCV (83.0-100.0) fL MCH (28.0-33.3) pg MCHC (31.6-35.5) g/dL RDW (11.5-14.5) % Plt Count (140-400) K/mcL MPV (9.4-12.4) fL Immature Gran % (0-4) % Seg Neutrophils % % Lymphocytes % % Monocytes % % Eosinophils % % Basophils % % Neutrophils # (1.6-8.9) K/mcL Lymphocytes # (0.6-4.6) K/mcL Monocytes # (0.0-1.3) K/mcL Eosinophils # (0.0-0.6) K/mcL Basophils # (0.0-0.2) K/mcL Sodium 140 (136-145) mEq/L Potassium 3.6 (3.5-5.1) mEq/L Chloride 101 (98-107) mEq/L Carbon Dioxide 29 (23-29) mEq/L BUN 19 (6-20) mg/dL Creatinine 1.01 (0.60-1.20) mg/dL Est GFR ( Amer) > 60 (> 60) Est GFR (Non-Af Amer) 58 L (> 60) BUN/Creatinine Ratio 19 (6-26) Glucose 95 (70-105) mg/dL Calculated Osmolality 292 (280-300) Lactic Acid 1.0 (0.5-2.2) mmol/L Calcium 10.0 (8.6-10.3) mg/dL Total Bilirubin 0.3 (0.3-1.0) mg/dL Direct Bilirubin 0.0 (0.0-0.2) mg/dL Indirect Bilirubin 0.3 (0.0-1.2) mg/dL AST 31 (13-39) Units/L ALT 58 H (7-52) Units/L Alkaline Phosphatase 124 H (34-104) Units/L Serum Total Protein 7.9 (6.4-8.9) g/dL Albumin 4.9 (3.5-5.7) g/dL Globulin 3.0 (2.4-3.5) g/dL Albumin/Globulin Ratio 1.6 (1.1-2.2) Lipase 107 H (11-82) Units/L Urine Color (Yellow) Urine Clarity (Clear) Urine pH (5.0-8.0) pH Units Ur Specific [place] (1.010-1.025) Urine Protein (Neg-Trace) mg/dL Urine Glucose (UA) (Normal) mg/dL Urine Ketones (Negative) mg/dL Urine Blood (Negative) Urine Nitrite (Negative) Urine Bilirubin (Negative) Urine Urobilinogen (Normal) mg/dL Ur Leukocyte Esterase (Negative) Ur Culture Indicated? (NO) Urine Test (Negative) S.B.A.R. - S.B.A.R. Situation: Demographics, MOA Background: Presenting Complaint, Relevant PMH, Meds, & Allergies Assessment: Vital Signs, Course and respsone to treatment, Exam Concerns, Patient/Family Expectation, Pertinant Lab Results, Outstanding Labs Recommendation: Barrier(s) to disposition, Recommendation based on pending studies, treatments, or consults S.B.A.R. Report Given to: Dr. Chaparro
[2018-05-11] MEDS ORDERED: *HR* Promethazine 25 MG/ML VIAL IVP ONE (20:19)
[2018-05-11] MEDS ORDERED: 0.9 % Sodium Chloride 1,000 ML IVC ONE (20:19)
[2018-05-11] MEDS ORDERED: *HR* Nalbuphine 10 MG/ML AMPUL IV ONE (20:20)
[2018-05-11 20:33] LABS: Basophils # 0.1 K/mcL (0.0-0.2); Basophils % 0.5 %; Eosinophils # 0.1 K/mcL (0.0-0.6); Eosinophils % 0.5 %; Hematocrit 33.9 % (35.3-44.9); Immature Granulocytes % 0.3 % (0-4); Lymphocytes # 2.4 K/mcL (0.6-4.6); Lymphocytes % 21.8 %; Mean Corpuscular HGB Conc 32.4 g/dL (31.6-35.5); Mean Corpuscular Hemoglobin 27.7 pg (28.0-33.3); Mean Corpuscular Volume 85.4 fL (83.0-100.0); Mean Platelet Volume 8.9 fL (9.4-12.4); Monocytes # 0.6 K/mcL (0.0-1.3); Monocytes % 5.2 %; Neutrophils # 7.9 K/mcL (1.6-8.9); Platelet Count 393 K/mcL (140-400); Red Blood Count 3.97 M/mcL (3.82-4.97); Red Cell Distribution Width 15.6 % (11.5-14.5); Segmented Neutrophils % 71.7 %
[2018-05-11 20:37] LABS: Bilirubin,Urine Negative (Negative); Blood,Urine Negative (Negative); Clarity,Urine Clear (Clear); Color,Urine Yellow (Yellow); Glucose,Urine (UA) Normal (Normal); Ketones,Urine Negative (Negative); Leukocyte Esterase,Urine Negative (Negative); Nitrite,Urine Negative (Negative); PH,Urine 6.5 pH Units (5.0-8.0); Protein,Urine Negative (Neg-Trace); Specific Gravity,Urine 1.013 (1.010-1.025); Urobilinogen,Urine Normal (Normal)
[2018-05-11 20:59] LABS: Alanine Aminotransferase 58 Units/L (7-52); Albumin 4.9 g/dL (3.5-5.7); Albumin/Globulin Ratio 1.6 (1.1-2.2); Alkaline Phosphatase 124 Units/L (34-104); Aspartate Amino Transferase 31 Units/L (13-39); BUN/Creatinine Ratio 19 (6-26); Bilirubin,Indirect 0.3 mg/dL (0.0-1.2); Bilirubin,Total 0.3 mg/dL (0.3-1.0); Blood Urea Nitrogen 19 mg/dL (6-20); Carbon Dioxide 29 mEq/L (23-29); Chloride 101 mEq/L (98-107); Glucose 95 mg/dL (70-105); Lipase 107 Units/L (11-82); Osmolality,Calculated 292 (280-300); Potassium 3.6 mEq/L (3.5-5.1); Sodium 140 mEq/L (136-145); Total Protein 7.9 g/dL (6.4-8.9); eGFR For Non-African Americans 58 (> 60)
[2018-05-11] MEDS ORDERED: *HR* FentaNYL (PF) 100 MCG/2 ML VIAL IVP ONE (21:03)
--- NOTE | 2018-05-11 21:48 | Emergency Department Note ---
Disposition Clinical Impression: Epigastric abdominal pain, History of pancreatitis Nausea & vomiting Qualifiers: Vomiting type: unspecified Vomiting Intractability: non-intractable Qualified Code(s): R11.2 - Nausea with vomiting, unspecified Disposition: Admitted As Inpatient Condition: Fair Referrals: Niecy Albarran ENGINEERING MGR [Advanced Practice Nurse] - Forms: ED Satisfaction Letter, Work/School Release Abdominal Pain HPI - General Chief Complaint: ED Abdominal Pain Stated Complaint: abdominal pain Time Seen by Provider: 05/11/18 19:50 Source: patient Mode of arrival: ambulatory Limitations: no limitations Nursing Notes Reviewed: Yes Vital Signs Reviewed: Yes - History of Present Illness Pain Scale: 10 - Related Data Home Medications Medication Instructions Recorded Confirmed Tizanidine HCl [Zanaflex] 4 mg PO BID 01/15/16 05/11/18 Venlafaxine XR (24 HR) [Effexor Xr] 75 mg PO DAILY 07/25/17 05/11/18 BuPROPion XL (24 HR) [Wellbutrin 300 mg PO DAILY 08/20/17 05/11/18 Xl] Aripiprazole [Abilify] 20 mg PO DAILY 09/08/17 05/11/18 Cholecalciferol (D-3) [Vitamin D] 5,000 unit PO DAILY 09/08/17 05/11/18 Cyanocobalamin (B-12) [Vitamin B12] 1,000 mcg IM QMONTH 09/08/17 05/11/18 Loratadine [Allergy Relief] 10 mg PO DAILY 12/11/17 05/11/18 Ondansetron [Zofran] 4 mg PO Q8H PRN 12/11/17 05/11/18 Lipase/Protease/Amylase [Creon Dr 1 cap PO QIDAC 12/28/17 05/11/18 6,000 Units Capsule] Montelukast [Singulair] 10 mg PO DAILY 03/08/18 05/11/18 Niacin [Plain Niacin] 500 mg PO DAILY 03/08/18 05/11/18 Pantoprazole Sodium 40 mg PO DAILY 03/08/18 05/11/18 Ranitidine HCl [Acid Chucking Machine Set Up Operator] 150 mg PO BID 03/08/18 05/11/18 Temazepam [Restoril] 30 mg PO HS 03/08/18 05/11/18 Ferrous Sulfate 324 mg PO DAILY 04/06/18 05/11/18 Previous Rx's Medication Instructions Recorded Metoclopramide [Reglan] 5 mg PO QIDAC #120 tablet 04/09/18 Promethazine [Phenergan] 12.5 mg IV Q8HR PRN #5 vial 04/30/18 Allergies Allergy/AdvReac Type Severity Reaction Status Date / Time butalbital [From Fioricet] Allergy Hives Verified 04/28/18 16:30 caffeine [From Fioricet] Allergy Hives Verified 04/28/18 16:30 [place] Allergy Hives Verified 04/28/18 16:30 phenytoin [From Dilantin] Allergy Hives Verified 04/28/18 16:30 methocarbamol [From Robaxin] AdvReac Vomiting Verified 04/28/18 16:30 Constitutional: Denies: fever Cardiovascular: Denies: chest pain, palpitations Respiratory: Denies: cough, dyspnea, wheezes Gastrointestinal: Reports: abdominal pain, nausea, vomiting. Denies: diarrhea, constipation Genitourinary: Denies: urgency, dysuria, frequency, hematuria Neurological: Denies: headache, weakness, numbness Abdominal Pain PMH - Past Medical History Medical history: Reports: asthma, COPD, coronary artery disease, CVA, GERD, hyperlipidemia, myocardial infarction, renal disease, seizures, TIA Female Surgical History: Reports: , cholecystectomy, herniorrhaphy, hysterectomy BAKER TEST history: Reports: no BAKER TEST history Psychiatric history: Reports: anxiety, bipolar, depression - Social History Smoking status: Never smoker Alcohol use: Reports: none Drug use: Reports: none Physical Exam - General Limitations: no limitations General appearance: alert, in no apparent distress Course Vital Signs Temperature 98.4 F 05/11/18 19:38 Pulse Rate 120 05/11/18 19:38 Respiratory Rate 20 05/11/18 19:38 Blood Pressure 186/120 05/11/18 19:38 O2 Sat by Pulse Oximetry 100 05/11/18 19:38 Temperature 99.1 F 05/11/18 19:58 Pulse Rate 107 05/11/18 21:21 Respiratory Rate 14 05/11/18 21:21 Blood Pressure 141/91 05/11/18 21:21 O2 Sat by Pulse Oximetry 96 05/11/18 21:21 Oxygen Delivery Oxygen Delivery Room Air Abdominal Pain - Lab Data Result diagrams: 05/11/18 20:02 05/11/18 20:02 Lab Results 05/11/18 05/11/18 05/11/18 Range/Units 19:37 19:37 20:02 WBC 11.0 (4.3-11.1) K/mcL RBC 3.97 (3.82-4.97) M/mcL Hgb 11.0 L (11.5-15.4) g/dL Hct 33.9 L (35.3-44.9) % MCV 85.4 (83.0-100.0) fL MCH 27.7 L (28.0-33.3) pg MCHC 32.4 (31.6-35.5) g/dL RDW 15.6 H (11.5-14.5) % Plt Count 393 (140-400) K/mcL MPV 8.9 L (9.4-12.4) fL Immature Gran % 0.3 (0-4) % Seg Neutrophils % 71.7 % Lymphocytes % 21.8 % Monocytes % 5.2 % Eosinophils % 0.5 % Basophils % 0.5 % Neutrophils # 7.9 (1.6-8.9) K/mcL Lymphocytes # 2.4 (0.6-4.6) K/mcL Monocytes # 0.6 (0.0-1.3) K/mcL Eosinophils # 0.1 (0.0-0.6) K/mcL Basophils # 0.1 (0.0-0.2) K/mcL Sodium (136-145) mEq/L Potassium (3.5-5.1) mEq/L Chloride (98-107) mEq/L Carbon Dioxide (23-29) mEq/L BUN (6-20) mg/dL Creatinine (0.60-1.20) mg/dL Est GFR ( Amer) (> 60) Est GFR (Non-Af Amer) (> 60) BUN/Creatinine Ratio (6-26) Glucose (70-105) mg/dL Calculated Osmolality (280-300) Lactic Acid (0.5-2.2) mmol/L Calcium (8.6-10.3) mg/dL Total Bilirubin (0.3-1.0) mg/dL Direct Bilirubin (0.0-0.2) mg/dL Indirect Bilirubin (0.0-1.2) mg/dL AST (13-39) Units/L ALT (7-52) Units/L Alkaline Phosphatase (34-104) Units/L Serum Total Protein (6.4-8.9) g/dL Albumin (3.5-5.7) g/dL Globulin (2.4-3.5) g/dL Albumin/Globulin Ratio (1.1-2.2) Lipase (11-82) Units/L Urine Color Yellow (Yellow) Urine Clarity Clear (Clear) Urine pH 6.5 (5.0-8.0) pH Units Ur Specific [place] 1.013 (1.010-1.025) Urine Protein Negative (Neg-Trace) mg/dL Urine Glucose (UA) Normal (Normal) mg/dL Urine Ketones Negative (Negative) mg/dL Urine Blood Negative (Negative) Urine Nitrite Negative (Negative) Urine Bilirubin Negative (Negative) Urine Urobilinogen Normal (Normal) mg/dL Ur Leukocyte Esterase Negative (Negative) Ur Culture Indicated? NO (NO) Urine Test Negative (Negative) 05/11/18 05/11/18 Range/Units 20:02 20:02 WBC (4.3-11.1) K/mcL RBC (3.82-4.97) M/mcL Hgb (11.5-15.4) g/dL Hct (35.3-44.9) % MCV (83.0-100.0) fL MCH (28.0-33.3) pg MCHC (31.6-35.5) g/dL RDW (11.5-14.5) % Plt Count (140-400) K/mcL MPV (9.4-12.4) fL Immature Gran % (0-4) % Seg Neutrophils % % Lymphocytes % % Monocytes % % Eosinophils % % Basophils % % Neutrophils # (1.6-8.9) K/mcL Lymphocytes # (0.6-4.6) K/mcL Monocytes # (0.0-1.3) K/mcL Eosinophils # (0.0-0.6) K/mcL Basophils # (0.0-0.2) K/mcL Sodium 140 (136-145) mEq/L Potassium 3.6 (3.5-5.1) mEq/L Chloride 101 (98-107) mEq/L Carbon Dioxide 29 (23-29) mEq/L BUN 19 (6-20) mg/dL Creatinine 1.01 (0.60-1.20) mg/dL Est GFR ( Amer) > 60 (> 60) Est GFR (Non-Af Amer) 58 L (> 60) BUN/Creatinine Ratio 19 (6-26) Glucose 95 (70-105) mg/dL Calculated Osmolality 292 (280-300) Lactic Acid 1.0 (0.5-2.2) mmol/L Calcium 10.0 (8.6-10.3) mg/dL Total Bilirubin 0.3 (0.3-1.0) mg/dL Direct Bilirubin 0.0 (0.0-0.2) mg/dL Indirect Bilirubin 0.3 (0.0-1.2) mg/dL AST 31 (13-39) Units/L ALT 58 H (7-52) Units/L Alkaline Phosphatase 124 H (34-104) Units/L Serum Total Protein 7.9 (6.4-8.9) g/dL Albumin 4.9 (3.5-5.7) g/dL Globulin 3.0 (2.4-3.5) g/dL Albumin/Globulin Ratio 1.6 (1.1-2.2) Lipase 107 H (11-82) Units/L Urine Color (Yellow) Urine Clarity (Clear) Urine pH (5.0-8.0) pH Units Ur Specific [place] (1.010-1.025) Urine Protein (Neg-Trace) mg/dL Urine Glucose (UA) (Normal) mg/dL Urine Ketones (Negative) mg/dL Urine Blood (Negative) Urine Nitrite (Negative) Urine Bilirubin (Negative) Urine Urobilinogen (Normal) mg/dL Ur Leukocyte Esterase (Negative) Ur Culture Indicated? (NO) Urine Test (Negative) Attestation Statement - Attestation Attestation: I, Jean-Pierre Whitlock, examined this patient and my medical decision-making was reviewed with the NEEDLEMAKER/PA/Advanced Practice Nurse/Resident Physician. I agree with the documented findings, disposition and treatment plan as described except to the extent set forth below. 52-year-old female presents emergency Department with concerns of epigastric abdominal pain. Patient states symptoms feel similar to her previous pancreatitis. Patient has a history of chronic pancreatitis. She states she generally gets admitted to the hospital for further care and evaluation of her pancreatitis Patient is tender to palpation of the epigastrium with guarding without evidence of rebound. Patient had elevation of her lipase in the emergency department to 107 however this is not significantly elevated it may be an early sign of her pancreatitis. Patient required multiple doses of pain medication emergency department. She did not feel comfortable to return home. She had a recent MRI and CT of the abdomen and pelvis which did not show obvious pancreatic mass. Patient will be admitted to the hospitalist for further care and evaluation of her possible acute on chronic pancreatitis.
[2018-05-11] MEDS ORDERED: Naloxone 0.4 MG/ML INJ IVP PRN (21:58)
--- NOTE | 2018-05-11 23:59 | Internal Med History&Physical ---
Date of Encounter: 05/21/18 Time of Encounter: 23:59 Internal Medicine - H&P: HPI Chief complaint: Abdominal Pain History of present illness: Ms. Astudillo is a 52 year old female past medical history of asthma, COPD, coronary artery disease, recurrent pancreatitis among others who presents with epigastric abdominal pain. Patient has a history of recurrent pancreatitis in the setting of gastric bypass surgery and has had multiple admissions for the same, the most recent of which was on April 27 similar presentation. She states that her abdominal pain has been flaring up over the past 2 days associated with nausea, vomiting and diarrhea. She describes her pain as gnawing initially 4 out of 10 in intensity, radiating to the right side under her rib. However, symptoms became worse around 9 AM after she ate a salad with ranch dressing. Patient has a history of cholecystectomy in the past. Patient normally self treats her nausea with IV Phenergan. She states that she ran out of her medication and is the only thing that helps control her nausea. Patient otherwise denies any fever, chills, chest pain, shortness of breath. Past Med Surg Social Fam HX - Past Medical History Medical history: asthma, COPD, coronary artery disease, CVA, GERD, hyperlipidemia, myocardial infarction, renal disease, seizures, TIA Additional medical history: PANCREATITIS. GASTRIC BYPASS. Carotid Stenosis. Degenerative Lumbar Disease Psychiatric history: anxiety, bipolar, depression - Past Surgical History Surgical History: cholecystectomy, hysterectomy Additional surgical history: GASTRIC BYPASS, Knee Surgery, T&A, Back surgery x2 , NOS, c/s x2, Abdominoplasty - Social History Smoking Status: Never smoker Smokeless Tobacco Status: No Alcohol use: none Drug use: none - Family History Mother Family Member Ethnicity: Non- Living Status: Hx Family Cardiac Disorders: No Hx Family Respiratory Disorders: No Hx Family Cancer: Yes (Esophageal) Hx Family GI Disorders: No Hx Family Endocrine Disorder: No Hx Family Neuromuscular Disorders: No Hx Family Neurologic Disorders: No Hx Family HEENT Disorders: No Hx Family Autoimmune Disorders: No Father Family Member Ethnicity: Non- Living Status: Hx Family Cancer: Yes (Prostate) Hx Family Neurologic Disorders: Yes (Alzheimer's disease) Brother Family Member Ethnicity: Non- Living Status: Still Living Hx Family Neurologic Disorders: Yes (Bipolar) Sister Adopted: No Family Member Ethnicity: Non- Living Status: Hx Family Cardiac Disorders: Yes Hx Family Respiratory Disorders: No Hx Family Cancer: Yes Hx Family GI Disorders: No Hx Family Endocrine Disorder: No Hx Family Neuromuscular Disorders: No Hx Family Neurologic Disorders: No Hx Family HEENT Disorders: No Hx Family Autoimmune Disorders: No Internal Medicine - H&P: Meds Tizanidine HCl [Zanaflex] 4 mg PO BID 01/15/16 [History] Venlafaxine XR (24 HR) [Effexor Xr] 75 mg PO DAILY 07/25/17 [History] BuPROPion XL (24 HR) [Wellbutrin Xl] 300 mg PO DAILY 08/20/17 [History] Aripiprazole [Abilify] 20 mg PO DAILY 09/08/17 [History] Cholecalciferol (D-3) [Vitamin D] 5,000 unit PO DAILY 09/08/17 [History] Cyanocobalamin (B-12) [Vitamin B12] 1,000 mcg IM QMONTH 09/08/17 [History] Loratadine [Allergy Relief] 10 mg PO DAILY 12/11/17 [History] Lipase/Protease/Amylase [Creon Dr 6,000 Units Capsule] 1 cap PO QIDAC 12/28/17 [ History] Montelukast [Singulair] 10 mg PO DAILY 03/08/18 [History] Niacin [Plain Niacin] 500 mg PO DAILY 03/08/18 [History] Pantoprazole Sodium 40 mg PO DAILY 03/08/18 [History] Ranitidine HCl [Acid Renal Case Manager] 150 mg PO BID 03/08/18 [History] Temazepam [Restoril] 30 mg PO HS 03/08/18 [History] Ferrous Sulfate 324 mg PO DAILY 04/06/18 [History] Promethazine [Phenergan] 12.5 mg IV Q8HR PRN #5 vial 04/30/18 [Rx] Ondansetron [Zofran] 4 mg PO Q8H PRN 10 Days #20 tablet 05/13/18 [Rx] 3 Allergy/AdvReac Type Severity Reaction Status Date / Time butalbital [From Fioricet] Allergy Hives Verified 04/28/18 16:30 caffeine [From Fioricet] Allergy Hives Verified 04/28/18 16:30 [place] Allergy Hives Verified 04/28/18 16:30 phenytoin [From Dilantin] Allergy Hives Verified 04/28/18 16:30 methocarbamol [From Robaxin] AdvReac Vomiting Verified 04/28/18 16:30 All Systems PM: A 10-system review of systems was performed and is negative for pertinent findings except as documented above in the HPI. - Constitutional Constitutional: no chills, no fever(s), no night sweats - EENT Eyes: no change in vision, no discharge, no pain, no photophobia Ears: no ear discharge, no ear pain, no tinnitus Nose, mouth and throat: no dysphagia, no nasal discharge, no neck pain, no sore throat - Cardiovascular Cardiovascular ROS IM: no chest pain, no diaphoresis, no dyspnea, no lightheadedness, no palpitations, no syncope - Respiratory Respiratory: no cough, no dyspnea, no wheezing, no excessive phlegm production - Gastrointestinal Gastrointestinal: no abdominal pain, no diarrhea, no hematemesis, no hematochezia, no melena, no nausea, no vomiting - Genitourinary Genitourinary: no change in urinary stream, no dysuria, no flank pain, no hematuria - Musculoskeletal Musculoskeletal ROS IM: no numbness, no tingling - Integumentary Integumentary IM: no rash, no unusual bruising - Neurological Neurological ROS: no confusion, no convulsions, no focal weakness, no numbness, no tingling, no tremor(s) - Hematologic/Lymphatic Hematologic/Lymphatic: no easy bruising - Constitutional Vitals: Temp Pulse Resp BP Pulse Ox 98.1 F 93 14 166/114 97 05/11/18 23:00 05/11/18 23:00 05/11/18 23:00 05/11/18 23:00 05/11/18 23:00 Exam: General: Alert and oriented Skin:Normal color, no rash, no lesions. HEENT:EOM, pupils equal, round and reactive. Cardiovascular:Normal S1 & S2, no rubs, murmurs or gallops. No JVD. Pulse regular. Lungs:Normal breath sounds, no wheezes or crackles. Abdomen:Soft, tenderness elicited to deep palpation in the epigastric region; no guarding or rebound tenderness noted. Extremities:No deformity, no edema or tenderness, no joint swelling or clubbing. Neurological:Normal cognition and motor skills. Pulses:Carotid and radial pulses normal +2. Rest of the physical exam is non contributory Internal Med - H&P Results - Labs CBC & Chem 7: 05/12/18 05:41 05/13/18 03:40 - Assessment and plan (1) Acute on chronic pancreatitis Status: Acute Assessment and plan: Epigastric abdominal pain possibly secondary to acute on chronic pancreatitis with an lipase of 107. Continue IV fluids and pain control; Phenergan for nausea. Nothing by mouth. Patient had MRI of the abdomen on 04/07 which was unremarkable. Consider repeat imaging of the abdomen if symptoms do not improve. (2) Nausea and vomiting Status: Resolved Assessment and plan: IV Phenergan onboard PRN Qualifiers: Vomiting type: unspecified Vomiting Intractability: non-intractable Qualified Code(s): R11.2 - Nausea with vomiting, unspecified - Time Spent With Patient Total time spent is greater than 50% in coordination of care (as documented) at patient's floor/unit and/or counseling patient:
[2018-05-12] MEDS: OXYCODONE Oral CONC 10 MG/0.5 ML ORAL.SYG SL PRN ×4 (01:00→20:10)
[2018-05-12] MEDS: *HR* Heparin 5,000 UNIT/ML VIAL SQ SCH ×4 (01:18→22:04)
[2018-05-12] MEDS: Pantoprazole 40 MG VIAL IVP SCH ×2 (01:19→08:46)
[2018-05-12] MEDS: 0.9 % Sodium Chloride 1,000 ML IVC SCH ×2 (02:42→19:59)
[2018-05-12] MEDS: *HR* Promethazine 25 MG/ML VIAL IVP PRN ×3 (05:06→21:33)
[2018-05-12 06:03] LABS: Hematocrit 31.3 % (35.3-44.9); Hemoglobin 10.1 g/dL (11.5-15.4); Mean Corpuscular HGB Conc 32.3 g/dL (31.6-35.5); Mean Corpuscular Hemoglobin 27.6 pg (28.0-33.3); Mean Corpuscular Volume 85.5 fL (83.0-100.0); Mean Platelet Volume 8.9 fL (9.4-12.4); Platelet Count 331 K/mcL (140-400); Red Blood Count 3.66 M/mcL (3.82-4.97); Red Cell Distribution Width 15.8 % (11.5-14.5)
[2018-05-12 06:16] LABS: Alanine Aminotransferase 48 Units/L (7-52); Albumin 4.1 g/dL (3.5-5.7); Albumin/Globulin Ratio 1.6 (1.1-2.2); Alkaline Phosphatase 107 Units/L (34-104); Aspartate Amino Transferase 31 Units/L (13-39); BUN/Creatinine Ratio 14 (6-26); Bilirubin,Total 0.6 mg/dL (0.3-1.0); Blood Urea Nitrogen 13 mg/dL (6-20); Calcium 8.8 mg/dL (8.6-10.3); Carbon Dioxide 29 mEq/L (23-29); Chloride 104 mEq/L (98-107); Globulin 2.6 g/dL (2.4-3.5); Glucose 97 mg/dL (70-105); Osmolality,Calculated 288 (280-300); Potassium 3.3 mEq/L (3.5-5.1); Sodium 139 mEq/L (136-145); Total Protein 6.7 g/dL (6.4-8.9); eGFR For Non-African Americans > 60 (> 60)
--- NOTE | 2018-05-12 08:36 | Internal Med Progress Note ---
Hospitalist Progress Note - Encounter Date of Encounter: 05/12/18 Time of Encounter: 08:34 - Subjective Interval History: Patient with history of asthma and COPD, CAD, recurrent pancreatitis, high cholesterol, hypertension, CVA. Patient admitted with abdominal pain for 2 days with some nausea and vomiting lipase 107 patient kept nothing by mouth and also has some pain control This morning patient reports some headaches. Likely because of high blood pressure abdominal pain is still persistent . Potassium was 3.3. Place some hydralazine prn order when necessary for hypertension and replace potassium - Exam Vitals: Temp Pulse Resp BP Pulse Ox 97.7 F 91 15 157/101 98 05/12/18 07:25 05/12/18 07:25 05/12/18 07:25 05/12/18 07:25 05/12/18 07:25 Exam: unchanged - Assessment and Plan (1) Headache Current Visit: Yes Status: Acute Assessment and Plan: likely due to uncontrolled htn (2) Pancreatitis Current Visit: No Status: Chronic Assessment and Plan: acute on chronic pancreatitis (3) Hypokalemia Current Visit: No Status: Acute Assessment and Plan: being replaced (4) COPD (chronic obstructive pulmonary disease) Current Visit: No Status: Chronic Assessment and Plan: no active wheezing (5) CAD (coronary artery disease) Current Visit: No Status: Chronic Assessment and Plan: no chest pain (6) HLD (hyperlipidemia) Current Visit: No Status: Chronic (7) Hypertension Current Visit: No Status: Chronic Assessment and Plan: uncontrolled ' willl place on prn hydralazine - Time Spent with Patient Total time spent is greater than 50% in coordination of care (as documented) at patient's floor/unit and/or counseling patient: Internal Medicine: Result - Labs CBC & Chem 7: 05/12/18 05:41 05/12/18 05:41 Labs: Short CBC 05/12/18 Range/Units 05:41 WBC 7.0 (4.3-11.1) K/mcL Hgb 10.1 L (11.5-15.4) g/dL Hct 31.3 L (35.3-44.9) % Plt Count 331 (140-400) K/mcL BMP 05/12/18 05:41 Sodium 139 Potassium 3.3 L Chloride 104 Carbon Dioxide 29 BUN 13 Creatinine 0.90 Glucose 97 Calcium 8.8 Liver Function 05/12/18 Range/Units 05:41 Total Bilirubin 0.6 (0.3-1.0) mg/dL AST 31 (13-39) Units/L ALT 48 (7-52) Units/L Alkaline Phosphatase 107 H (34-104) Units/L Albumin 4.1 (3.5-5.7) g/dL Consult Discharge Plan - Plan Referrals: Niecy Albarran CNP [Primary Care Provider] - (1) Headache Qualifiers: Headache type: unspecified Headache chronicity pattern: unspecified pattern Intractability: not intractable Qualified Code(s): R51 - Headache (2) Pancreatitis Qualifiers: Chronicity: acute Pancreatitis type: unspecified pancreatitis type Acute pancreatitis complication: unspecified Qualified Code(s): K85.90 - Acute pancreatitis without necrosis or infection, unspecified (4) COPD (chronic obstructive pulmonary disease) Qualifiers: COPD type: unspecified COPD Qualified Code(s): J44.9 - Chronic obstructive pulmonary disease, unspecified (5) CAD (coronary artery disease) Qualifiers: Coronary Disease-Associated Artery/Lesion type: [place] artery [place] vs. transplanted heart: [place] heart Associated angina: without angina Qualified Code(s): I25.10 - Atherosclerotic heart disease of [place] coronary artery without angina pectoris (6) HLD (hyperlipidemia) Qualifiers: Hyperlipidemia type: pure hypercholesterolemia Qualified Code(s): E78.00 - Pure hypercholesterolemia, unspecified; E78.0 - Pure hypercholesterolemia (7) Hypertension Qualifiers: Hypertension type: essential hypertension Qualified Code(s): I10 - Essential (primary) hypertension
[2018-05-12] MEDS ORDERED: Ketorolac 30 MG/ML VIAL IVP ONE (12:22)
[2018-05-13] MEDS ORDERED: Ketorolac 15 MG/ML VIAL IVP ONE (00:42)
[2018-05-13 04:14] LABS: BUN/Creatinine Ratio 14 (6-26); Blood Urea Nitrogen 11 mg/dL (6-20); Carbon Dioxide 25 mEq/L (23-29); Chloride 105 mEq/L (98-107); Glucose 112 mg/dL (70-105); Lipase 72 Units/L (11-82); Magnesium 2.2 mg/dL (1.6-2.6); Osmolality,Calculated 284 (280-300); Potassium 4.1 mEq/L (3.5-5.1); Sodium 137 mEq/L (136-145); eGFR For Non-African Americans > 60 (> 60)
[2018-05-13] MEDS: *HR* Heparin 5,000 UNIT/ML VIAL SQ SCH ×2 (05:04→14:31)
[2018-05-13] MEDS: OXYCODONE Oral CONC 10 MG/0.5 ML ORAL.SYG SL PRN ×2 (06:12→13:00)
[2018-05-13] MEDS: *HR* Promethazine 25 MG/ML VIAL IVP PRN ×2 (06:12→14:21)
[2018-05-13] MEDS: Pantoprazole 40 MG VIAL IVP SCH (09:08)
[2018-05-13 14:30] VITALS: BP 161/64
[2018-05-13] MEDS ORDERED: Temazepam 15 MG CAPSULE PO PRN (14:41)
[2018-05-13] MEDS ORDERED: OXYCODONE Oral CONC 10 MG/0.5 ML ORAL.SYG SL PRN (15:22)
[2018-05-13] MEDS ORDERED: Ketorolac 30 MG/ML VIAL IVP PRN (15:22)
--- NOTE | 2018-05-13 17:52 | Discharge Summary ---
Date of Encounter: 05/13/18 Time of Encounter: 17:43 - Discharge Diagnosis (1) Abdominal pain Priority: Primary Status: Resolved Assessment and Plan: Possibly due to chronic pancreatitis. Lipase 92 Qualifiers: Abdominal location: generalized Qualified Code(s): R10.84 - Generalized abdominal pain (2) Nausea and vomiting Priority: Secondary Status: Resolved Qualifiers: Vomiting type: unspecified Vomiting Intractability: non-intractable Qualified Code(s): R11.2 - Nausea with vomiting, unspecified Hospital course: Ms. Astudillo is a 52 year old female with a history of chronic pancreatitis and multiple other medical conditions. At needed to the hospital due to nausea and vomiting and epigastric abdominal pain. Patient treated with IV fluid and antiemetic. Symptoms improved significantly and patient tolerating diet by mouth. Symptoms at presentation have resolved, patient is medically stable to be discharged. Discharge discussed with: patient, family - Time Spent with Patient Total time spent providing and/or coordinating discharge services: Greater than 30 minutes - Discharge Medications Prescriptions: Ondansetron [Zofran] 4 mg PO Q8H PRN 10 Days #20 tablet PRN Reason: Nausea Home Medications: Tizanidine HCl [Zanaflex] 4 mg PO BID 01/15/16 [History] Venlafaxine XR (24 HR) [Effexor Xr] 75 mg PO DAILY 07/25/17 [History] BuPROPion XL (24 HR) [Wellbutrin Xl] 300 mg PO DAILY 08/20/17 [History] Aripiprazole [Abilify] 20 mg PO DAILY 09/08/17 [History] Cholecalciferol (D-3) [Vitamin D] 5,000 unit PO DAILY 09/08/17 [History] Cyanocobalamin (B-12) [Vitamin B12] 1,000 mcg IM QMONTH 09/08/17 [History] Loratadine [Allergy Relief] 10 mg PO DAILY 12/11/17 [History] Lipase/Protease/Amylase [Creon Dr 6,000 Units Capsule] 1 cap PO QIDAC 12/28/17 [ History] Montelukast [Singulair] 10 mg PO DAILY 03/08/18 [History] Niacin [Plain Niacin] 500 mg PO DAILY 03/08/18 [History] Pantoprazole Sodium 40 mg PO DAILY 03/08/18 [History] Ranitidine HCl [Acid Laboratory Immunologist] 150 mg PO BID 03/08/18 [History] Temazepam [Restoril] 30 mg PO HS 03/08/18 [History] Ferrous Sulfate 324 mg PO DAILY 04/06/18 [History] Promethazine [Phenergan] 12.5 mg IV Q8HR PRN #5 vial 04/30/18 [Rx] Ondansetron [Zofran] 4 mg PO Q8H PRN 10 Days #20 tablet 05/13/18 [Rx] Allergies/Adverse Reactions: 3 Allergy/AdvReac Type Severity Reaction Status Date / Time butalbital [From Fioricet] Allergy Hives Verified 04/28/18 16:30 caffeine [From Fioricet] Allergy Hives Verified 04/28/18 16:30 [place] Allergy Hives Verified 04/28/18 16:30 phenytoin [From Dilantin] Allergy Hives Verified 04/28/18 16:30 methocarbamol [From Robaxin] AdvReac Vomiting Verified 04/28/18 16:30 Date of admission: 05/11/18 22:30 Primary care physician: Niecy Albarran - Constitutional Vitals: Temp Pulse Resp BP Pulse Ox 98.4 F 100 15 161/64 98 05/13/18 14:08 05/13/18 14:08 05/13/18 14:08 05/13/18 14:08 05/13/18 14:08 Exam: General: Alert and oriented Skin:Normal color, no rash, no lesions. HEENT:EOM, pupils equal, round and reactive. Cardiovascular:Normal S1 & S2, no rubs, murmurs or gallops. No JVD. Pulse regular. Lungs:Normal breath sounds, no wheezes or crackles. Abdomen:Soft, non-tender, no rigidity. Extremities:No deformity, no edema or tenderness, no joint swelling or clubbing. Neurological:Normal cognition and motor skills. Pulses:Carotid and radial pulses normal +2. Rest of the physical exam is non contributory - Patient Status Disposition: Home Health Service Condition: Fair Functional capacity at discharge: independent ambulation - Discharge Instructions Follow Up With: Niecy Albarran [Advanced Practice Nurse] - (Office will call patient at home with date and time of appointment. Thank you) - Diet and Activity Activity: increase activity as tolerated, resume usual activities as tolerated Diet: advance to your usual diet
--- NOTE | 2018-05-13 17:57 | Physician Discharge Referral ---
- Diagnosis (1) Abdominal pain Priority: Primary Status: Resolved (2) Nausea and vomiting Priority: Secondary Status: Resolved - Respiratory Orders None Smoking Cessation: Smoking cessation has been advised. For more information, call the [place] Tobacco Quit Line at 2-527-XEGK-NOW. - Diet/Nutrition Diet/Nutrition Orders: Regular - Activity Activity Orders: Ambulate - Services Needed Following services are medically necessary services: Home Health Aide - Transfer Medications Prescriptions: Ondansetron [Zofran] 4 mg PO Q8H PRN 10 Days #20 tablet PRN Reason: Nausea Home Medications: Tizanidine HCl [Zanaflex] 4 mg PO BID 01/15/16 [History] Venlafaxine XR (24 HR) [Effexor Xr] 75 mg PO DAILY 07/25/17 [History] BuPROPion XL (24 HR) [Wellbutrin Xl] 300 mg PO DAILY 08/20/17 [History] Aripiprazole [Abilify] 20 mg PO DAILY 09/08/17 [History] Cholecalciferol (D-3) [Vitamin D] 5,000 unit PO DAILY 09/08/17 [History] Cyanocobalamin (B-12) [Vitamin B12] 1,000 mcg IM QMONTH 09/08/17 [History] Loratadine [Allergy Relief] 10 mg PO DAILY 12/11/17 [History] Lipase/Protease/Amylase [Creon Dr 6,000 Units Capsule] 1 cap PO QIDAC 12/28/17 [ History] Montelukast [Singulair] 10 mg PO DAILY 03/08/18 [History] Niacin [Plain Niacin] 500 mg PO DAILY 03/08/18 [History] Pantoprazole Sodium 40 mg PO DAILY 03/08/18 [History] Ranitidine HCl [Acid Plastic Printer] 150 mg PO BID 03/08/18 [History] Temazepam [Restoril] 30 mg PO HS 03/08/18 [History] Ferrous Sulfate 324 mg PO DAILY 04/06/18 [History] Promethazine [Phenergan] 12.5 mg IV Q8HR PRN #5 vial 04/30/18 [Rx] Ondansetron [Zofran] 4 mg PO Q8H PRN 10 Days #20 tablet 05/13/18 [Rx] Allergies/Adverse Reactions: 3 Allergy/AdvReac Type Severity Reaction Status Date / Time butalbital [From Fioricet] Allergy Hives Verified 04/28/18 16:30 caffeine [From Fioricet] Allergy Hives Verified 04/28/18 16:30 [place] Allergy Hives Verified 04/28/18 16:30 phenytoin [From Dilantin] Allergy Hives Verified 04/28/18 16:30 methocarbamol [From Robaxin] AdvReac Vomiting Verified 04/28/18 16:30 Certification: Further, I certify that my clinical findings support that this patient is homebound (i.e. absences from home require considerable and taxing effort and are for medical reasons or pentecostalism services or infrequently or short duration when for other reasons) because: Homebound Reason: Patient requires assistance of a person or device to safely leave home Attestation: My signature below is to certify that this patient is under my care and that I, or nurse practitioner, or a physician's trading assistant working with me, has a face-to -face encounter with this patient.
[2018-05-14] MEDS ORDERED: Loratadine 10 MG TABLET PO SCH (09:00)
[2018-05-14] MEDS ORDERED: Venlafaxine XR (24 HR) 37.5 MG CAP.ER.24H PO SCH (09:00)
[2018-05-14] MEDS ORDERED: BuPROPion XL (24 HR) 150 MG TABLET PO SCH (09:00)
[2018-05-14] MEDS ORDERED: ARIPiprazole 10 MG TABLET PO SCH (09:00)
[2018-05-14] MEDS ORDERED: Niacin (24 HR) 500 MG TAB.ER.24H PO SCH (09:00)
== END 2018-05-13 18:37 | disposition home health service (06) ==
LOC: EMEROOARM 19:31 → 3ANU 19:31 → SUATTDRO 22:30 → 3ANU 23:03
PROVIDERS: ADMIT Internal Medicine; ATTEND Internal Medicine

== ENCOUNTER 2018-06-01 12:29 | Observation (INO) ==
[2018-06-01] MEDS ORDERED: 0.9 % Sodium Chloride 1,000 ML IVC ONE (13:50)
[2018-06-01] MEDS ORDERED: Ondansetron 4 MG/2 ML VIAL IVP ONE (13:50)
[2018-06-01] MEDS ORDERED: *HR* Promethazine 25 MG/ML VIAL IVP ONE (14:05)
--- NOTE | 2018-06-01 14:09 | Emergency Department Note ---
Disposition Clinical Impression: Chronic pancreatitis Qualifiers: Pancreatitis type: unspecified pancreatitis type Qualified Code(s): K86.1 - Other chronic pancreatitis Intractable nausea and vomiting Qualifiers: Vomiting type: unspecified Qualified Code(s): R11.2 - Nausea with vomiting, unspecified Disposition: Admitted As Inpatient Condition: Good Abdominal Pain HPI - General Chief Complaint: ED Abdominal Pain Stated Complaint: "pancreatitis" Time Seen by Provider: 06/01/18 13:33 Source: patient Mode of arrival: private vehicle Limitations: no limitations Vital Signs Reviewed: Yes - History of Present Illness HPI Narrative: Ms. Carmichael is a 52 yo F with a hxO of chronic pancreatic, CKD, and gastric bypass presents with 3 days of diarrhea, subzyphoid pain radiating to the back that is sharp in nature and intractable vomiting since last night. This is consistent with her previous episodes of pancreatitis. She is unable to take anything PO and was seen 3 weeks ago for similar symptoms. She denies hematemesis, hematochezia, changes to urine, fevers or diaphoresis. Pain Scale: 8 - Related Data Home Medications Medication Instructions Recorded Confirmed Tizanidine HCl [Zanaflex] 4 mg PO BID 01/15/16 06/01/18 Venlafaxine XR (24 HR) [Effexor Xr] 75 mg PO DAILY 07/25/17 06/01/18 BuPROPion XL (24 HR) [Wellbutrin 300 mg PO DAILY 08/20/17 06/01/18 Xl] Aripiprazole [Abilify] 20 mg PO DAILY 09/08/17 06/01/18 Cholecalciferol (D-3) [Vitamin D] 5,000 unit PO DAILY 09/08/17 06/01/18 Cyanocobalamin (B-12) [Vitamin B12] 1,000 mcg IM QMONTH 09/08/17 06/01/18 Loratadine [Allergy Relief] 10 mg PO DAILY 12/11/17 06/01/18 Lipase/Protease/Amylase [Sivakumar Hopkins 1 cap PO QIDAC 12/28/17 06/01/18 6,000 Units Capsule] Montelukast [Singulair] 10 mg PO DAILY 03/08/18 06/01/18 Niacin [Plain Niacin] 500 mg PO DAILY 03/08/18 06/01/18 Pantoprazole Sodium 40 mg PO DAILY 03/08/18 06/01/18 Ranitidine HCl [Acid Parliamentary Archivist] 150 mg PO BID 03/08/18 06/01/18 Temazepam [Restoril] 30 mg PO HS 03/08/18 06/01/18 Ferrous Sulfate 324 mg PO DAILY 04/06/18 06/01/18 Previous Rx's Medication Instructions Recorded Promethazine [Phenergan] 12.5 mg IV Q8HR PRN #5 vial 04/30/18 Ondansetron [Zofran] 4 mg PO Q8H PRN 10 Days #20 tablet 05/13/18 Allergies Allergy/AdvReac Type Severity Reaction Status Date / Time butalbital [From Fioricet] Allergy Hives Verified 06/01/18 12:46 caffeine [From Fioricet] Allergy Hives Verified 06/01/18 12:46 [place] Allergy Hives Verified 06/01/18 12:46 phenytoin [From Dilantin] Allergy Hives Verified 06/01/18 12:46 methocarbamol [From Robaxin] AdvReac Vomiting Verified 06/01/18 12:46 Constitutional: Denies: fever, chills, weakness ENT ED: Denies: congestion Cardiovascular: Denies: chest pain, palpitations Respiratory: Denies: cough, wheezes Gastrointestinal: Reports: abdominal pain, nausea, vomiting, diarrhea Genitourinary: Denies: dysuria, frequency, hematuria Musculoskeletal: Reports: back pain Neurological: Denies: weakness, numbness Endocrine: Denies: fatigue Abdominal Pain PMH - Past Medical History Medical history: Reports: asthma, COPD, coronary artery disease, CVA, GERD, hyperlipidemia, myocardial infarction, renal disease, seizures, TIA Female Surgical History: Reports: , cholecystectomy, herniorrhaphy, hysterectomy ELECTRIC MOTOR REPAIRER history: Reports: no ELECTRIC MOTOR REPAIRER history Psychiatric history: Reports: anxiety, bipolar, depression - Social History Smoking status: Never smoker Alcohol use: Reports: none Drug use: Reports: none Course Vital Signs Temperature 98.3 F 06/01/18 12:45 Pulse Rate 74 06/01/18 12:45 Respiratory Rate 18 06/01/18 12:45 Blood Pressure 106/75 06/01/18 12:45 O2 Sat by Pulse Oximetry 100 06/01/18 12:45 Temperature 98.8 F 06/01/18 17:43 Pulse Rate 86 06/01/18 17:43 Respiratory Rate 16 06/01/18 17:43 Blood Pressure 158/93 06/01/18 17:43 O2 Sat by Pulse Oximetry 98 06/01/18 17:43 Oxygen Delivery Oxygen Delivery Room Air Abdominal Pain - Lab Data Result diagrams: 06/01/18 14:08 06/01/18 14:08 Lab Results 06/01/18 06/01/18 Range/Units 14:08 14:08 WBC 9.1 (4.3-11.1) K/mcL RBC 4.19 (3.82-4.97) M/mcL Hgb 11.2 L (11.5-15.4) g/dL Hct 34.8 L (35.3-44.9) % MCV 83.1 (83.0-100.0) fL MCH 26.7 L (28.0-33.3) pg MCHC 32.2 (31.6-35.5) g/dL RDW 15.4 H (11.5-14.5) % Plt Count 463 H (140-400) K/mcL MPV 9.0 L (9.4-12.4) fL Immature Gran % 0.2 (0-4) % Seg Neutrophils % 72.2 % Lymphocytes % 22.3 % Monocytes % 4.6 % Eosinophils % 0.2 % Basophils % 0.5 % Neutrophils # 6.6 (1.6-8.9) K/mcL Lymphocytes # 2.0 (0.6-4.6) K/mcL Monocytes # 0.4 (0.0-1.3) K/mcL Eosinophils # 0.0 (0.0-0.6) K/mcL Basophils # 0.1 (0.0-0.2) K/mcL Sodium 141 (136-145) mEq/L Potassium 3.5 (3.5-5.1) mEq/L Chloride 103 (98-107) mEq/L Carbon Dioxide 26 (23-29) mEq/L BUN 6 (6-20) mg/dL Creatinine 1.04 (0.60-1.20) mg/dL Est GFR ( Amer) > 60 (> 60) Est GFR (Non-Af Amer) 56 L (> 60) BUN/Creatinine Ratio 6 (6-26) Glucose 104 (70-105) mg/dL Calculated Osmolality 290 (280-300) Calcium 9.8 (8.6-10.3) mg/dL Total Bilirubin 0.4 (0.3-1.0) mg/dL Direct Bilirubin 0.1 (0.0-0.2) mg/dL Indirect Bilirubin 0.3 (0.0-1.2) mg/dL AST 20 (13-39) Units/L ALT 22 (7-52) Units/L Alkaline Phosphatase 100 (34-104) Units/L Serum Total Protein 7.9 (6.4-8.9) g/dL Albumin 4.7 (3.5-5.7) g/dL Globulin 3.2 (2.4-3.5) g/dL Albumin/Globulin Ratio 1.5 (1.1-2.2) Lipase 90 H (11-82) Units/L
[2018-06-01] MEDS ORDERED: Metoclopramide 10 MG/2 ML VIAL IVP ONE (14:11)
[2018-06-01 14:42] LABS: Basophils # 0.1 K/mcL (0.0-0.2); Basophils % 0.5 %; Eosinophils % 0.2 %; Hematocrit 34.8 % (35.3-44.9); Hemoglobin 11.2 g/dL (11.5-15.4); Immature Granulocytes % 0.2 % (0-4); Lymphocytes % 22.3 %; Mean Corpuscular HGB Conc 32.2 g/dL (31.6-35.5); Mean Corpuscular Hemoglobin 26.7 pg (28.0-33.3); Mean Corpuscular Volume 83.1 fL (83.0-100.0); Monocytes # 0.4 K/mcL (0.0-1.3); Monocytes % 4.6 %; Neutrophils # 6.6 K/mcL (1.6-8.9); Platelet Count 463 K/mcL (140-400); Red Blood Count 4.19 M/mcL (3.82-4.97); Red Cell Distribution Width 15.4 % (11.5-14.5); Segmented Neutrophils % 72.2 %
[2018-06-01 14:58] LABS: Alanine Aminotransferase 22 Units/L (7-52); Albumin 4.7 g/dL (3.5-5.7); Albumin/Globulin Ratio 1.5 (1.1-2.2); Alkaline Phosphatase 100 Units/L (34-104); Aspartate Amino Transferase 20 Units/L (13-39); BUN/Creatinine Ratio 6 (6-26); Bilirubin,Direct 0.1 mg/dL (0.0-0.2); Bilirubin,Indirect 0.3 mg/dL (0.0-1.2); Bilirubin,Total 0.4 mg/dL (0.3-1.0); Blood Urea Nitrogen 6 mg/dL (6-20); Calcium 9.8 mg/dL (8.6-10.3); Carbon Dioxide 26 mEq/L (23-29); Chloride 103 mEq/L (98-107); Globulin 3.2 g/dL (2.4-3.5); Glucose 104 mg/dL (70-105); Lipase 90 Units/L (11-82); Osmolality,Calculated 290 (280-300); Potassium 3.5 mEq/L (3.5-5.1); Sodium 141 mEq/L (136-145); Total Protein 7.9 g/dL (6.4-8.9); eGFR For Non-African Americans 56 (> 60)
[2018-06-01] MEDS ORDERED: *HR* Nalbuphine 10 MG/ML AMPUL IVP ONE (15:08)
--- NOTE | 2018-06-01 15:22 | Emergency Department Note ---
Disposition Clinical Impression: Chronic pancreatitis, Vomiting, Malabsorption syndrome Disposition: Home, Self-Care Referrals: Niecy Albarran CNP [Primary Care Provider] - Forms: ED Satisfaction Letter, Work/School Release General Adult HPI - General Chief complaint: ED Abdominal Pain Stated complaint: "pancreatitis" Time Seen by Provider: 06/01/18 13:33 Source: patient Mode of arrival: private vehicle Limitations: no limitations - History of Present Illness Pain Scale: 8 - Related Data Home Medications Medication Instructions Recorded Confirmed Tizanidine HCl [Zanaflex] 4 mg PO BID 01/15/16 05/11/18 Venlafaxine XR (24 HR) [Effexor Xr] 75 mg PO DAILY 07/25/17 05/11/18 BuPROPion XL (24 HR) [Wellbutrin 300 mg PO DAILY 08/20/17 05/11/18 Xl] Aripiprazole [Abilify] 20 mg PO DAILY 09/08/17 05/11/18 Cholecalciferol (D-3) [Vitamin D] 5,000 unit PO DAILY 09/08/17 05/11/18 Cyanocobalamin (B-12) [Vitamin B12] 1,000 mcg IM QMONTH 09/08/17 05/11/18 Loratadine [Allergy Relief] 10 mg PO DAILY 12/11/17 05/11/18 Lipase/Protease/Amylase [Sivakumar Hopkins 1 cap PO QIDAC 12/28/17 05/11/18 6,000 Units Capsule] Montelukast [Singulair] 10 mg PO DAILY 03/08/18 05/11/18 Niacin [Plain Niacin] 500 mg PO DAILY 03/08/18 05/11/18 Pantoprazole Sodium 40 mg PO DAILY 03/08/18 05/11/18 Ranitidine HCl [Acid Data Officer] 150 mg PO BID 03/08/18 05/11/18 Temazepam [Restoril] 30 mg PO HS 03/08/18 05/11/18 Ferrous Sulfate 324 mg PO DAILY 04/06/18 05/11/18 Previous Rx's Medication Instructions Recorded Promethazine [Phenergan] 12.5 mg IV Q8HR PRN #5 vial 04/30/18 Ondansetron [Zofran] 4 mg PO Q8H PRN 10 Days #20 tablet 05/13/18 Allergies Allergy/AdvReac Type Severity Reaction Status Date / Time butalbital [From Fioricet] Allergy Hives Verified 06/01/18 12:46 caffeine [From Fioricet] Allergy Hives Verified 06/01/18 12:46 [place] Allergy Hives Verified 06/01/18 12:46 phenytoin [From Dilantin] Allergy Hives Verified 06/01/18 12:46 methocarbamol [From Robaxin] AdvReac Vomiting Verified 06/01/18 12:46 Constitutional: Denies: fever, chills, weakness ENT ED: Denies: congestion Cardiovascular: Denies: chest pain, palpitations Respiratory: Denies: cough, wheezes Gastrointestinal: Reports: abdominal pain, nausea, vomiting, diarrhea Genitourinary: Denies: dysuria, frequency, hematuria Musculoskeletal: Reports: back pain Neurological: Denies: weakness, numbness Endocrine: Denies: fatigue Past Medical History - Past Medical History Medical history: Reports: asthma, COPD, coronary artery disease, CVA, GERD, hyperlipidemia, myocardial infarction, renal disease, seizures, TIA Surgical history: Reports: cholecystectomy, hysterectomy Psychiatric history: Reports: anxiety, bipolar, depression DIVER'S TENDER history: Reports: no DIVER'S TENDER history - Social History Smoking Status: Never smoker Smokeless Tobacco Status: No Alcohol use: Reports: none Drug use: Reports: none Physical Exam - General Limitations: no limitations General appearance: alert, in no apparent distress Course Vital Signs Temperature 98.3 F 06/01/18 12:45 Pulse Rate 74 06/01/18 12:45 Respiratory Rate 18 06/01/18 12:45 Blood Pressure 106/75 06/01/18 12:45 O2 Sat by Pulse Oximetry 100 06/01/18 12:45 Temperature 98.3 F 06/01/18 14:10 Pulse Rate 75 06/01/18 15:16 Respiratory Rate 16 06/01/18 15:16 Blood Pressure 134/84 06/01/18 15:16 O2 Sat by Pulse Oximetry 100 06/01/18 15:16 Oxygen Delivery Oxygen Delivery Room Air Medical Decision Making - Lab Data Result diagrams: 06/01/18 14:08 06/01/18 14:08 Lab Results 06/01/18 06/01/18 Range/Units 14:08 14:08 WBC 9.1 (4.3-11.1) K/mcL RBC 4.19 (3.82-4.97) M/mcL Hgb 11.2 L (11.5-15.4) g/dL Hct 34.8 L (35.3-44.9) % MCV 83.1 (83.0-100.0) fL MCH 26.7 L (28.0-33.3) pg MCHC 32.2 (31.6-35.5) g/dL RDW 15.4 H (11.5-14.5) % Plt Count 463 H (140-400) K/mcL MPV 9.0 L (9.4-12.4) fL Immature Gran % 0.2 (0-4) % Seg Neutrophils % 72.2 % Lymphocytes % 22.3 % Monocytes % 4.6 % Eosinophils % 0.2 % Basophils % 0.5 % Neutrophils # 6.6 (1.6-8.9) K/mcL Lymphocytes # 2.0 (0.6-4.6) K/mcL Monocytes # 0.4 (0.0-1.3) K/mcL Eosinophils # 0.0 (0.0-0.6) K/mcL Basophils # 0.1 (0.0-0.2) K/mcL Sodium 141 (136-145) mEq/L Potassium 3.5 (3.5-5.1) mEq/L Chloride 103 (98-107) mEq/L Carbon Dioxide 26 (23-29) mEq/L BUN 6 (6-20) mg/dL Creatinine 1.04 (0.60-1.20) mg/dL Est GFR ( Amer) > 60 (> 60) Est GFR (Non-Af Amer) 56 L (> 60) BUN/Creatinine Ratio 6 (6-26) Glucose 104 (70-105) mg/dL Calculated Osmolality 290 (280-300) Calcium 9.8 (8.6-10.3) mg/dL Total Bilirubin 0.4 (0.3-1.0) mg/dL Direct Bilirubin 0.1 (0.0-0.2) mg/dL Indirect Bilirubin 0.3 (0.0-1.2) mg/dL AST 20 (13-39) Units/L ALT 22 (7-52) Units/L Alkaline Phosphatase 100 (34-104) Units/L Serum Total Protein 7.9 (6.4-8.9) g/dL Albumin 4.7 (3.5-5.7) g/dL Globulin 3.2 (2.4-3.5) g/dL Albumin/Globulin Ratio 1.5 (1.1-2.2) Lipase 90 H (11-82) Units/L Attestation Statement - Attestation Attestation: I examined this patient and my medical decision-making was reviewed with the Resident Physician. I agree with the documented findings, disposition and treatment plan as described except to the extent set forth below. 52-year-old female presented to the emergency room for abdominal pain. Patient has a long history of chronic pancreatitis secondary to gastric bypass surgery. An MRI in March of this year of her abdomen that did not show any acute pathology. She is in the emergency room today complaining of epigastric subxiphoid pain. Her lipase level today is 90 with no LFT elevation. Take she has been worse in the past. I did not reimage her today. She is nontoxic appearing. She has had previous CTs and MRIs of her abdomen. She sees her GI doctor in 8 days. Control in the ER and have her follow up with GI as an outpatient. She does not want to be admitted today.
--- NOTE | 2018-06-01 16:36 | Emergency Department Note ---
Disposition Clinical Impression: Chronic pancreatitis Qualifiers: Pancreatitis type: unspecified pancreatitis type Qualified Code(s): K86.1 - Other chronic pancreatitis Intractable nausea and vomiting Qualifiers: Vomiting type: unspecified Qualified Code(s): R11.2 - Nausea with vomiting, unspecified Disposition: Admitted As Inpatient Condition: Good Referrals: Niecy Albarran CNP [Primary Care Provider] - Time of Disposition: 16:37 Abdominal Pain HPI - General Chief Complaint: ED Abdominal Pain Stated Complaint: "pancreatitis" Time Seen by Provider: 06/01/18 13:33 Source: patient Mode of arrival: private vehicle Limitations: no limitations Nursing Notes Reviewed: Yes Vital Signs Reviewed: Yes - History of Present Illness HPI Narrative: I have re-performed and reviewed the history documented by the medical student, and I confirm its accuracy except as noted below Pain Scale: 8 - Related Data Home Medications Medication Instructions Recorded Confirmed Tizanidine HCl [Zanaflex] 4 mg PO BID 01/15/16 05/11/18 Venlafaxine XR (24 HR) [Effexor Xr] 75 mg PO DAILY 07/25/17 05/11/18 BuPROPion XL (24 HR) [Wellbutrin 300 mg PO DAILY 08/20/17 05/11/18 Xl] Aripiprazole [Abilify] 20 mg PO DAILY 09/08/17 05/11/18 Cholecalciferol (D-3) [Vitamin D] 5,000 unit PO DAILY 09/08/17 05/11/18 Cyanocobalamin (B-12) [Vitamin B12] 1,000 mcg IM QMONTH 09/08/17 05/11/18 Loratadine [Allergy Relief] 10 mg PO DAILY 12/11/17 05/11/18 Lipase/Protease/Amylase [Creon Dr 1 cap PO QIDAC 12/28/17 05/11/18 6,000 Units Capsule] Montelukast [Singulair] 10 mg PO DAILY 03/08/18 05/11/18 Niacin [Plain Niacin] 500 mg PO DAILY 03/08/18 05/11/18 Pantoprazole Sodium 40 mg PO DAILY 03/08/18 05/11/18 Ranitidine HCl [Acid Environmental Science Technician] 150 mg PO BID 03/08/18 05/11/18 Temazepam [Restoril] 30 mg PO HS 03/08/18 05/11/18 Ferrous Sulfate 324 mg PO DAILY 04/06/18 05/11/18 Previous Rx's Medication Instructions Recorded Promethazine [Phenergan] 12.5 mg IV Q8HR PRN #5 vial 04/30/18 Ondansetron [Zofran] 4 mg PO Q8H PRN 10 Days #20 tablet 05/13/18 Allergies Allergy/AdvReac Type Severity Reaction Status Date / Time butalbital [From Fioricet] Allergy Hives Verified 06/01/18 12:46 caffeine [From Fioricet] Allergy Hives Verified 06/01/18 12:46 [place] Allergy Hives Verified 06/01/18 12:46 phenytoin [From Dilantin] Allergy Hives Verified 06/01/18 12:46 methocarbamol [From Robaxin] AdvReac Vomiting Verified 06/01/18 12:46 All systems ED: reviewed and negative except as stated. Constitutional: Denies: fever, chills, weakness ENT ED: Denies: congestion Cardiovascular: Denies: chest pain, palpitations Respiratory: Denies: cough, wheezes Gastrointestinal: Reports: abdominal pain, nausea, vomiting, diarrhea Genitourinary: Denies: dysuria, frequency, hematuria Musculoskeletal: Reports: back pain Neurological: Denies: weakness, numbness Endocrine: Denies: fatigue Abdominal Pain PMH - Past Medical History Medical history: Reports: asthma, COPD, coronary artery disease, CVA, GERD, hyperlipidemia, myocardial infarction, renal disease, seizures, TIA Female Surgical History: Reports: , cholecystectomy, herniorrhaphy, hysterectomy MENTAL HEALTH THERAPIST history: Reports: no MENTAL HEALTH THERAPIST history Psychiatric history: Reports: anxiety, bipolar, depression - Social History Smoking status: Never smoker Alcohol use: Reports: none Drug use: Reports: none Physical Exam - General Limitations: no limitations General appearance: alert, in no apparent distress - Head Head exam: atraumatic, normocephalic, normal inspection - Eye Eye exam: Present: EOMI - ENT ENT exam: normal exam, normal oropharynx, mucous membranes moist - Neck Neck exam: Present: normal inspection, full ROM, trachea midline - Chest Chest inspection: Present: normal inspection, symmetric chest wall rise - Respiratory Respiratory exam: Present: normal lung sounds bilaterally - Cardiovascular Cardiovascular exam: Present: regular rate, normal rhythm, normal heart sounds - Abdominal Exam Abdominal exam: Present: soft, tenderness Abdominal tenderness: Present: epigastrium, moderate - Extremities Exam Extremities exam: Present: normal inspection, full ROM. Absent: tenderness, pedal edema - Neurological Exam Neurological exam: Present: alert, oriented X3 - Psychiatric Psychiatric exam: Present: normal affect, normal mood - Skin Skin exam: Present: warm, dry, intact, normal color Course Course Narrative: Patient seen and examined. Briefly, patient has had worsening epigastric abdominal pain over the last several days. History of chronic pancreatitis. Lab work ordered in triage. We will give a liter bolus of IV fluids as well as IV Phenergan and Reglan. We will reassess. - Reevaluation(s) Reevaluation #1: Patient feeling a little better but still feels nauseated. Concerned that she will get worse when she goes home. Her lipase mildly elevated at 90. We will admit for pancreatitis. I discussed with the hospitalist Dr. Sol who has accepted patient for admission. Time: 16:36 Vital Signs Temperature 98.3 F 06/01/18 12:45 Pulse Rate 74 06/01/18 12:45 Respiratory Rate 18 06/01/18 12:45 Blood Pressure 106/75 06/01/18 12:45 O2 Sat by Pulse Oximetry 100 06/01/18 12:45 Temperature 98.3 F 06/01/18 14:10 Pulse Rate 75 06/01/18 15:16 Respiratory Rate 16 06/01/18 15:16 Blood Pressure 115/89 06/01/18 16:23 O2 Sat by Pulse Oximetry 100 06/01/18 15:16 Oxygen Delivery Oxygen Delivery Room Air Abdominal Pain - Medical Records Medical records reviewed: Yes I reviewed the patient's medical records. - Lab Data Lab results reviewed: Yes I reviewed the patient's lab results. Result diagrams: 06/01/18 14:08 06/01/18 14:08 Lab Results 06/01/18 06/01/18 Range/Units 14:08 14:08 WBC 9.1 (4.3-11.1) K/mcL RBC 4.19 (3.82-4.97) M/mcL Hgb 11.2 L (11.5-15.4) g/dL Hct 34.8 L (35.3-44.9) % MCV 83.1 (83.0-100.0) fL MCH 26.7 L (28.0-33.3) pg MCHC 32.2 (31.6-35.5) g/dL RDW 15.4 H (11.5-14.5) % Plt Count 463 H (140-400) K/mcL MPV 9.0 L (9.4-12.4) fL Immature Gran % 0.2 (0-4) % Seg Neutrophils % 72.2 % Lymphocytes % 22.3 % Monocytes % 4.6 % Eosinophils % 0.2 % Basophils % 0.5 % Neutrophils # 6.6 (1.6-8.9) K/mcL Lymphocytes # 2.0 (0.6-4.6) K/mcL Monocytes # 0.4 (0.0-1.3) K/mcL Eosinophils # 0.0 (0.0-0.6) K/mcL Basophils # 0.1 (0.0-0.2) K/mcL Sodium 141 (136-145) mEq/L Potassium 3.5 (3.5-5.1) mEq/L Chloride 103 (98-107) mEq/L Carbon Dioxide 26 (23-29) mEq/L BUN 6 (6-20) mg/dL Creatinine 1.04 (0.60-1.20) mg/dL Est GFR ( Amer) > 60 (> 60) Est GFR (Non-Af Amer) 56 L (> 60) BUN/Creatinine Ratio 6 (6-26) Glucose 104 (70-105) mg/dL Calculated Osmolality 290 (280-300) Calcium 9.8 (8.6-10.3) mg/dL Total Bilirubin 0.4 (0.3-1.0) mg/dL Direct Bilirubin 0.1 (0.0-0.2) mg/dL Indirect Bilirubin 0.3 (0.0-1.2) mg/dL AST 20 (13-39) Units/L ALT 22 (7-52) Units/L Alkaline Phosphatase 100 (34-104) Units/L Serum Total Protein 7.9 (6.4-8.9) g/dL Albumin 4.7 (3.5-5.7) g/dL Globulin 3.2 (2.4-3.5) g/dL Albumin/Globulin Ratio 1.5 (1.1-2.2) Lipase 90 H (11-82) Units/L
[2018-06-01] MEDS ORDERED: Naloxone 0.4 MG/ML INJ IVP PRN (17:43)
[2018-06-01] MEDS ORDERED: Dextrose Gel 15 GM/37.5 ML TUBE PO PRN (17:45)
[2018-06-01] MEDS ORDERED: *HR* Dextrose 50 % in Water (Syg) 50 ML SYRINGE IVP PRN (17:45)
[2018-06-01] MEDS ORDERED: D5% in Water 1,000 ML IVC PRN (17:45)
[2018-06-01] MEDS ORDERED: *HR* Promethazine 25 MG/ML VIAL IM PRN (18:22)
[2018-06-01] MEDS ORDERED: Albuterol 2.5 MG/3 ML NEBULIZER IH PRN (18:26)
--- NOTE | 2018-06-01 18:28 | Internal Med History&Physical ---
Date of Encounter: 06/01/18 Time of Encounter: 18:24 Internal Medicine - H&P: HPI Chief complaint: Abdominal pain Admitted From: Home History of present illness: Ms. Astudillo is a 52 year old female past medical history significant for gastric bypass, chronic pancreatitis, COPD, coronary artery disease, CVA, hyperlipidemia , GERD, seizure, renal disease. Patient presented to the emergency room due to epigastric 8 out of 10 stabbing abdominal pain radiating to her right upper quadrant associated with nausea and nonbilious vomiting. Patient states that around Labor Day weekend she is started having worsening abdominal pain, aggravated by food intake, and no alleviating factor. Just yesterday the abdominal pain and the nausea became unbearable and she decided to come to the emergency room. She denies fever, chills, shortness of breath, or chest pain. But reports loose stool for the past 3 days. Past Med Surg Social Fam HX - Past Medical History Medical history: asthma, COPD, coronary artery disease, CVA, GERD, hyperlipidemia, myocardial infarction, renal disease, seizures, TIA Additional medical history: PANCREATITIS. GASTRIC BYPASS. Carotid Stenosis. Degenerative Lumbar Disease Psychiatric history: anxiety, bipolar, depression - Past Surgical History Surgical History: cholecystectomy, hysterectomy Additional surgical history: gastric bypass - Social History Smoking Status: Never smoker Smokeless Tobacco Status: No Alcohol use: none Drug use: none - Family History Mother Family Member Ethnicity: Non- Living Status: Hx Family Cardiac Disorders: No Hx Family Respiratory Disorders: No Hx Family Cancer: Yes (Esophageal) Hx Family GI Disorders: No Hx Family Endocrine Disorder: No Hx Family Neuromuscular Disorders: No Hx Family Neurologic Disorders: No Hx Family HEENT Disorders: No Hx Family Autoimmune Disorders: No Father Family Member Ethnicity: Non- Living Status: Hx Family Cancer: Yes (Prostate) Hx Family Neurologic Disorders: Yes (Alzheimer's disease) Brother Family Member Ethnicity: Non- Living Status: Still Living Hx Family Neurologic Disorders: Yes (Bipolar) Sister Adopted: No Family Member Ethnicity: Non- Living Status: Hx Family Cardiac Disorders: Yes Hx Family Respiratory Disorders: No Hx Family Cancer: Yes Hx Family GI Disorders: No Hx Family Endocrine Disorder: No Hx Family Neuromuscular Disorders: No Hx Family Neurologic Disorders: No Hx Family HEENT Disorders: No Hx Family Autoimmune Disorders: No Internal Medicine - H&P: Meds Tizanidine HCl [Zanaflex] 4 mg PO BID 01/15/16 [History] Venlafaxine XR (24 HR) [Effexor Xr] 75 mg PO DAILY 07/25/17 [History] BuPROPion XL (24 HR) [Wellbutrin Xl] 300 mg PO DAILY 08/20/17 [History] Aripiprazole [Abilify] 20 mg PO DAILY 09/08/17 [History] Cholecalciferol (D-3) [Vitamin D] 5,000 unit PO DAILY 09/08/17 [History] Cyanocobalamin (B-12) [Vitamin B12] 1,000 mcg IM QMONTH 09/08/17 [History] Loratadine [Allergy Relief] 10 mg PO DAILY 12/11/17 [History] Lipase/Protease/Amylase [Creon Dr 6,000 Units Capsule] 1 cap PO QIDAC 12/28/17 [ History] Montelukast [Singulair] 10 mg PO DAILY 03/08/18 [History] Niacin [Plain Niacin] 500 mg PO DAILY 03/08/18 [History] Pantoprazole Sodium 40 mg PO DAILY 03/08/18 [History] Ranitidine HCl [Acid Application Packaging Specialist] 150 mg PO BID 03/08/18 [History] Temazepam [Restoril] 30 mg PO HS 03/08/18 [History] Ferrous Sulfate 324 mg PO DAILY 04/06/18 [History] Promethazine [Phenergan] 12.5 mg IV Q8HR PRN #5 vial 04/30/18 [Rx] Ondansetron [Zofran] 4 mg PO Q8H PRN 10 Days #20 tablet 05/13/18 [Rx] 3 Allergy/AdvReac Type Severity Reaction Status Date / Time butalbital [From Fioricet] Allergy Hives Verified 06/01/18 12:46 caffeine [From Fioricet] Allergy Hives Verified 06/01/18 12:46 [place] Allergy Hives Verified 06/01/18 12:46 phenytoin [From Dilantin] Allergy Hives Verified 06/01/18 12:46 methocarbamol [From Robaxin] AdvReac Vomiting Verified 06/01/18 12:46 All Systems PM: A 10-system review of systems was performed and is negative for pertinent findings except as documented above in the HPI. - Constitutional Constitutional: weakness, no chills, no fever(s), no malaise, no weight gain - EENT Eyes: no irritation Nose, mouth and throat: no change in voice, no dysphagia, no mouth pain - Cardiovascular Cardiovascular ROS IM: no chest pain, no dyspnea on exertion, no edema, no palpitations - Respiratory Respiratory: no cough, no dyspnea, no stridor - Gastrointestinal Gastrointestinal: abdominal pain, loose stools, nausea, vomiting, no belching, no change in bowel habits, no coffee ground emesis, no constipation, no diarrhea , no dyspepsia, no dysphagia - Musculoskeletal Musculoskeletal ROS IM: no arthralgias, no limited range of motion - Integumentary Integumentary IM: no rash - Neurological Neurological ROS: no abnormal hearing, no focal weakness, no lack of coordination, no loss of vision - Psychiatric Psychiatric: no anxiety, no depression - Endocrine Endocrine IM: no cold intolerance, no flushing - Allergic/Immunologic Allergic/Immunologic: no wheezing - Constitutional Vitals: Temp Pulse Resp BP Pulse Ox 98.8 F 86 16 158/93 98 06/01/18 17:43 06/01/18 17:43 06/01/18 17:43 06/01/18 17:43 06/01/18 17:43 Exam: General: Alert and oriented 4. Mild distress due to nausea. Cardiovascular: Regular rate and rhythm Normal S1 & S2, no rubs, murmurs or gallops. No JVD. Lungs: Clear to auscultation bilaterally, no wheezes or crackles. Abdomen: Epigastric tenderness to deep palpation, Soft, no rigidity or guarding. Extremities: no edema or tenderness, no joint swelling or clubbing. Neurological:Normal cognition and motor skills. Rest of the physical exam is non contributory Internal Med - H&P Results - Labs CBC & Chem 7: 06/01/18 14:08 06/01/18 14:08 - Assessment and plan (1) Intractable nausea and vomiting Current Visit: Yes Status: Acute Assessment and plan: Possibly secondary to gastritis, versus chronic pancreatitis. CT of the abdomen done in the emergency room: Regarding indication of pancreatitis, no abnormality in or around the pancreas is identified. Incidental findings of cholecystectomy and a postoperative appearance of the stomach. Plan: Nothing by mouth Pantoprazole 40 mg IV daily Promethazine 12.5 mg IV every 6 hours when necessary for nausea and vomiting Ondansetron 4 mg IV scheduled every 4 hours Tramadol for pain control. D5/Half-normal saline @75mls/hr for maintenance fluid as patient is nothing by mouth Qualifiers: Vomiting type: unspecified Qualified Code(s): R11.2 - Nausea with vomiting , unspecified (2) Epigastric abdominal pain Current Visit: No Status: Acute Assessment and plan: Possibly secondary to chronic pancreatitis. Plan Plan of care as per #1 problem. (3) DVT prophylaxis Current Visit: No Status: Acute Assessment and plan: Heparin 5000 units subcutaneous twice a day for DVT prophylaxis. (4) Anemia Current Visit: No Status: Chronic Assessment and plan: H&H is stable, we will monitor. No intervention required at this time. Qualifiers: Anemia type: unspecified type Qualified Code(s): D64.9 - Anemia, unspecified (5) Anxiety and depression Current Visit: No Status: Chronic Assessment and plan: will continue home medications. - Time Spent With Patient Total time spent is greater than 50% in coordination of care (as documented) at patient's floor/unit and/or counseling patient: Greater than 35 minutes
[2018-06-01] MEDS: D5% in 0.45% NACL 1,000 ML IVC SCH (20:32)
[2018-06-01] MEDS: Pantoprazole 40 MG VIAL IVP SCH (20:32)
[2018-06-01] MEDS: Insulin LISPRO 300 UNITS/3 ML VIAL SQ SCH ×2 (20:32→23:54)
[2018-06-01] MEDS: traMADol 50 MG TABLET PO PRN (20:44)
[2018-06-01] MEDS: Ondansetron 4 MG/2 ML VIAL IVP SCH (23:54)
[2018-06-02] MEDS: *HR* Promethazine 25 MG/ML VIAL IVP PRN ×2 (04:24→10:53)
[2018-06-02] MEDS: traMADol 50 MG TABLET PO PRN ×3 (04:24→17:18)
[2018-06-02 05:14] LABS: Basophils # 0.1 K/mcL (0.0-0.2); Basophils % 1.1 %; Eosinophils # 0.1 K/mcL (0.0-0.6); Eosinophils % 2.1 %; Hematocrit 31.4 % (35.3-44.9); Hemoglobin 10.1 g/dL (11.5-15.4); Immature Granulocytes % 0.4 % (0-4); Lymphocytes # 2.2 K/mcL (0.6-4.6); Lymphocytes % 38.4 %; Mean Corpuscular HGB Conc 32.2 g/dL (31.6-35.5); Mean Corpuscular Hemoglobin 27.2 pg (28.0-33.3); Mean Corpuscular Volume 84.4 fL (83.0-100.0); Mean Platelet Volume 9.2 fL (9.4-12.4); Monocytes # 0.4 K/mcL (0.0-1.3); Monocytes % 6.5 %; Neutrophils # 2.9 K/mcL (1.6-8.9); Platelet Count 368 K/mcL (140-400); Red Blood Count 3.72 M/mcL (3.82-4.97); Red Cell Distribution Width 15.4 % (11.5-14.5); Segmented Neutrophils % 51.5 %
[2018-06-02 05:34] LABS: BUN/Creatinine Ratio 6 (6-26); Blood Urea Nitrogen 6 mg/dL (6-20); Calcium 8.8 mg/dL (8.6-10.3); Carbon Dioxide 27 mEq/L (23-29); Chloride 103 mEq/L (98-107); Glucose 108 mg/dL (70-105); Magnesium 1.9 mg/dL (1.6-2.6); Osmolality,Calculated 286 (280-300); Phosphorous 4.4 mg/dL (2.7-4.5); Potassium 3.3 mEq/L (3.5-5.1); Sodium 139 mEq/L (136-145); eGFR For Non-African Americans 58 (> 60)
[2018-06-02] MEDS: Insulin LISPRO 300 UNITS/3 ML VIAL SQ SCH ×3 (06:09→17:20)
[2018-06-02] MEDS: *HR* Heparin 5,000 UNIT/ML VIAL SQ SCH ×2 (06:14→17:18)
[2018-06-02] MEDS: Ondansetron 4 MG/2 ML VIAL IVP SCH ×3 (06:15→17:19)
[2018-06-02] MEDS: Venlafaxine XR (24 HR) 75 MG CAP.ER.24H PO SCH (09:46)
[2018-06-02] MEDS: ARIPiprazole 10 MG TABLET PO SCH (09:46)
[2018-06-02] MEDS: Pantoprazole 40 MG VIAL IVP SCH (09:46)
[2018-06-02] MEDS: D5% in 0.45% NACL 1,000 ML IVC SCH (09:46)
--- NOTE | 2018-06-02 18:25 | Internal Med Progress Note ---
Hospitalist Progress Note - Encounter Date of Encounter: 06/02/18 Time of Encounter: 11:00 - Subjective Interval History: Patient still with abdominal discomfort this morning and remains nothing by mouth - Exam Vitals: Temp Pulse Resp BP Pulse Ox 98.9 F 76 16 118/80 100 06/02/18 15:58 06/02/18 15:58 06/02/18 15:58 06/02/18 15:58 06/02/18 15:58 Exam: Gen.: Nonacute distress, alert and oriented 3 ENT: Mucosal membranes moist Respiratory: Lungs are clear to auscultation bilaterally without any wheezing rhonchi or rales Cardiovascular: Normal S1 and S2 regular rate rhythm no murmurs rubs or gallops Abdomen: Soft and nondistended but generalized tenderness to palpation especially in the epigastric and right upper quadrants Extremities: No lower extremity edema Skin: Normal color - Assessment and Plan (1) Epigastric abdominal pain Current Visit: No Status: Acute Assessment and Plan: Patient with no improvement in right upper quadrant and epigastric pain. Will continue patient nothing by mouth; GI consulted and appreciate recommendations (2) Anemia Current Visit: No Status: Chronic Assessment and Plan: H&H is stable, we will monitor. No intervention required at this time. (3) Anxiety and depression Current Visit: No Status: Chronic Assessment and Plan: will continue home medications. (4) DVT prophylaxis Current Visit: No Status: Acute Assessment and Plan: Heparin 5000 units subcutaneous twice a day for DVT prophylaxis. - Time Spent with Patient Total time spent is greater than 50% in coordination of care (as documented) at patient's floor/unit and/or counseling patient: Internal Medicine: Result - Labs CBC & Chem 7: 06/02/18 04:45 06/02/18 04:45 Labs: Short CBC 06/02/18 Range/Units 04:45 WBC 5.7 (4.3-11.1) K/mcL Hgb 10.1 L (11.5-15.4) g/dL Hct 31.4 L (35.3-44.9) % Plt Count 368 (140-400) K/mcL Neutrophils # 2.9 (1.6-8.9) K/mcL BMP 06/02/18 04:45 Sodium 139 Potassium 3.3 L Chloride 103 Carbon Dioxide 27 BUN 6 Creatinine 1.01 Glucose 108 H Calcium 8.8 Consult Discharge Plan - Plan Referrals: Niecy Albarran, WHEEL PRESS CLERK [Primary Care Provider] - (2) Anemia Qualifiers: Anemia type: unspecified type Qualified Code(s): D64.9 - Anemia, unspecified
[2018-06-03] MEDS: Ondansetron 4 MG/2 ML VIAL IVP SCH ×3 (00:01→12:51)
[2018-06-03] MEDS: Insulin LISPRO 300 UNITS/3 ML VIAL SQ SCH ×3 (00:47→12:50)
[2018-06-03] MEDS: *HR* Promethazine 25 MG/ML VIAL IVP PRN ×3 (01:30→14:27)
[2018-06-03] MEDS: *HR* Heparin 5,000 UNIT/ML VIAL SQ SCH (06:10)
[2018-06-03] MEDS: traMADol 50 MG TABLET PO PRN ×2 (07:58→14:27)
[2018-06-03] MEDS: ARIPiprazole 10 MG TABLET PO SCH (07:59)
[2018-06-03] MEDS: Pantoprazole 40 MG VIAL IVP SCH (07:59)
[2018-06-03] MEDS: Venlafaxine XR (24 HR) 75 MG CAP.ER.24H PO SCH (07:59)
[2018-06-03 10:39] VITALS: BP 119/79
--- NOTE | 2018-06-03 11:08 | Gastroenterology Consult Note ---
<LaurentDanny Hugo - Last Filed: 06/03/18 11:06> Date of Encounter: 06/03/18 Time of Encounter: 10:25 - Assessment and plan (1) Pancreatitis Current Visit: No Status: Chronic Assessment and plan: CT A/P showed no abnormality in or around the pancreas and incidental findings of cholecystectomy and a postoperative appearance of the stomach. LFTs within normal limits and lipase slightly elevated at 90. EUS on 04/27/2018 with possible early pancreatitis. Concern also for possible sphincter of Oddi dysfunction. Start clear liquid diet and advance as tolerated to low fat diet. Continue pain control and anti-emetics. Check IgG4, ionized calcium, AB, and triglycerides. Qualifiers: Chronicity: acute Pancreatitis type: unspecified pancreatitis type Acute pancreatitis complication: unspecified Qualified Code(s): K85.90 - Acute pancreatitis without necrosis or infection, unspecified - Time Spent With Patient Total time spent is greater than 50% in coordination of care (as documented) at patient's floor/unit and/or counseling patient: GI History of Present Illness - Data of Consult Patient: known to practice within the last 3 years Consult date: 06/03/18 Requesting Physician: Louis Cochran - Consult Narrative Reason for consult: Hx chronic pancreatitis History of present illness: Ms. Astudillo is a 52 year old female with PMHx of chronic pancreatitis, GERD, dysphagia, CAD, CVA, CKD stage III, and family history of esophageal cancer who presented to the ED due to epigastric 8 out of 10 stabbing abdominal pain radiating to her right upper quadrant associated with nausea and nonbilious vomiting. Patient states that around Labor Day weekend she is started having worsening abdominal pain, aggravated by food intake, and no alleviating factor. CT A/P showed no abnormality in or around the pancreas and incidental findings of cholecystectomy and a postoperative appearance of the stomach. On admission LFTs within normal limits and lipase slightly elevated at 90. Procedures: Upper EUS 04/27/2018 Dr. Currie: Possible early chronic pancreatitis. EGD 12/16/2017 Dr. Avelar: Acute gastritis Colonoscopy 3-4 years ago at [facility] with polyps removed was recommended repeat in 1 year but did not follow up. EGD 1 year ago at [facility]. NSAIDs: None Anticoagulation: None Past Med Surg Social Fam HX - Past Medical History Medical history: asthma, COPD, coronary artery disease, CVA, GERD, hyperlipidemia, myocardial infarction, renal disease, seizures, TIA Additional medical history: PANCREATITIS. GASTRIC BYPASS. Carotid Stenosis. Degenerative Lumbar Disease Psychiatric history: anxiety, bipolar, depression - Past Surgical History Surgical History: cholecystectomy, hysterectomy Additional surgical history: gastric bypass - Social History Smoking Status: Never smoker Smokeless Tobacco Status: No Alcohol use: none Drug use: none - Family History Mother Family Member Ethnicity: Non- Living Status: Hx Family Cardiac Disorders: No Hx Family Respiratory Disorders: No Hx Family Cancer: Yes (Esophageal) Hx Family GI Disorders: No Hx Family Endocrine Disorder: No Hx Family Neuromuscular Disorders: No Hx Family Neurologic Disorders: No Hx Family HEENT Disorders: No Hx Family Autoimmune Disorders: No Father Family Member Ethnicity: Non- Living Status: Hx Family Cancer: Yes (Prostate) Hx Family Neurologic Disorders: Yes (Alzheimer's disease) Brother Family Member Ethnicity: Non- Living Status: Still Living Hx Family Neurologic Disorders: Yes (Bipolar) Sister Adopted: No Family Member Ethnicity: Non- Living Status: Hx Family Cardiac Disorders: Yes Hx Family Respiratory Disorders: No Hx Family Cancer: Yes Hx Family GI Disorders: No Hx Family Endocrine Disorder: No Hx Family Neuromuscular Disorders: No Hx Family Neurologic Disorders: No Hx Family HEENT Disorders: No Hx Family Autoimmune Disorders: No - Constitutional Constitutional: as per HPI - EENT Eyes: as per HPI Ears: Present: as per HPI Nose, mouth and throat: Present: as per HPI - Cardiovascular Cardiovascular ROS: Present: as per HPI - Respiratory Respiratory IM: Present: as per HPI - Genitourinary Genitourinary: Absent: change in color, Urinary frequency - Neurological ROS Neurological GI: Present: as per HPI - Hematologic/Lymphatic Hematologic/Lymphatic pediatric: Present: as per HPI - Musculoskeletal Musculoskeletal ROS GI: Present: as per HPI - Integumentary Integumentary GI: Present: as per HPI - Psychiatric ROS Psychiatric GI: Present: as per HPI - Endocrine Endocrine IM: Present: as per HPI - Constitutional Vitals: Temp Pulse Resp BP Pulse Ox 98.5 F 74 15 119/79 97 06/03/18 10:40 06/03/18 10:40 06/03/18 10:40 06/03/18 10:40 06/03/18 10:40 General appearance: Present: cooperative, A&O X 3, no acute distress, answers questions appropriately - Head Head exam: Present: atraumatic, normocephalic - Eye Eye exam: Present: normal appearance, sclera anicteric - ENT ENT exam: Present: mucous membranes dry - Neck Neck exam general surgery: Present: normal inspection, trachea midline - Respiratory Respiratory exam: Present: CTAB. Absent: rales, rhonchi - Cardiovascular Cardiovascular exam: Present: RRR, +S1, +S2 - GI/Abdominal GI/Abdominal exam: Present: soft, tenderness (epigastric tenderness), no peritoneal signs. Absent: distended, firm, guarding - Rectal Rectal exam: Present: deferred - Extremities Exam Extremities exam: Present: warm - Neurological Exam Neurological exam: Present: no focal deficits - Psychiatric Psychiatric exam: Present: normal affect, normal mood - Skin Skin exam: Present: dry, intact, normal color, warm Results - Labs CBC & Chem 7: 06/02/18 04:45 06/02/18 04:45 Labs: Last Result Calcium 8.8 mg/dL (8.6-10.3) 06/02/18 04:45 Entire Visit Hgb 10.1 g/dL (11.5-15.4) L 06/02/18 04:45 Hct 31.4 % (35.3-44.9) L 06/02/18 04:45 Total Bilirubin 0.4 mg/dL (0.3-1.0) 06/01/18 14:08 AST 20 Units/L (13-39) 06/01/18 14:08 ALT 22 Units/L (7-52) 06/01/18 14:08 Lipase 90 Units/L (11-82) H 06/01/18 14:08 Consult Discharge Plan - Plan Referrals: Niecy Albarran BILLING COORDINATOR [Primary Care Provider] - <Antoinette Currie - Last Filed: 06/03/18 14:04> Date of Encounter: 06/03/18 Time of Encounter: 13:00 - Time Spent With Patient Total time spent is greater than 50% in coordination of care (as documented) at patient's floor/unit and/or counseling patient: GI History of Present Illness - Data of Consult Requesting Physician: Louis Cochran - Consult Narrative History of present illness: Ms. Astudillo is a 52 year old female - Constitutional Vitals: Temp Pulse Resp BP Pulse Ox 98.5 F 74 15 119/79 97 06/03/18 10:40 06/03/18 10:40 06/03/18 10:40 06/03/18 10:40 06/03/18 10:40 Results - Labs CBC & Chem 7: 06/03/18 09:24 06/03/18 09:24 Labs: Last Result Calcium 9.1 mg/dL (8.6-10.3) 06/03/18 09:24 Triglycerides 133 mg/dL (< 150) 06/03/18 12:30 Entire Visit Hgb 10.3 g/dL (11.5-15.4) L 06/03/18 09:24 Hct 31.9 % (35.3-44.9) L 06/03/18 09:24 Total Bilirubin 0.4 mg/dL (0.3-1.0) 06/01/18 14:08 AST 20 Units/L (13-39) 06/01/18 14:08 ALT 22 Units/L (7-52) 06/01/18 14:08 Lipase 90 Units/L (11-82) H 06/01/18 14:08 - Attending Attestation I have personally performed a face to face evaluation on this patient. I have reviewed and agree with the care plan. History and Exam by me shows: Patient seen denies any active issues abdominal pain is mostly resolved. On examination abdomen is benign. Assessment: Patient 52-year-old female with a history of gastric bypass surgery and history of recurrent pancreatitis who was admitted because of intractable vomiting per patient, she does gets these episodes of vomiting that sometime can wake up her up from sleeping and then that they will last for a few days. Currently symptomatically she is feeling much better. Imaging were unremarkable for any acute finding. Recommendation: Symptomatic treatment follow with GI as an outpatient if continued to have these recurrent episode of vomiting then maybe benefit from trycyclic antidepressant
[2018-06-03 11:11] LABS: Basophils # 0.1 K/mcL (0.0-0.2); Basophils % 1.2 %; Eosinophils # 0.1 K/mcL (0.0-0.6); Eosinophils % 2.2 %; Hematocrit 31.9 % (35.3-44.9); Hemoglobin 10.3 g/dL (11.5-15.4); Immature Granulocytes % 0.2 % (0-4); Lymphocytes # 1.7 K/mcL (0.6-4.6); Lymphocytes % 28.5 %; Mean Corpuscular HGB Conc 32.3 g/dL (31.6-35.5); Mean Corpuscular Hemoglobin 27.2 pg (28.0-33.3); Mean Corpuscular Volume 84.2 fL (83.0-100.0); Monocytes # 0.4 K/mcL (0.0-1.3); Monocytes % 5.9 %; Neutrophils # 3.7 K/mcL (1.6-8.9); Platelet Count 356 K/mcL (140-400); Red Blood Count 3.79 M/mcL (3.82-4.97); Red Cell Distribution Width 15.5 % (11.5-14.5)
[2018-06-03 11:24] LABS: BUN/Creatinine Ratio 6 (6-26); Blood Urea Nitrogen 7 mg/dL (6-20); Calcium 9.1 mg/dL (8.6-10.3); Carbon Dioxide 28 mEq/L (23-29); Chloride 105 mEq/L (98-107); Glucose 111 mg/dL (70-105); Osmolality,Calculated 289 (280-300); Potassium 3.6 mEq/L (3.5-5.1); Sodium 140 mEq/L (136-145); eGFR For Non-African Americans 51 (> 60)
[2018-06-03 12:54] LABS: VBG Ionized Calcium 1.18 mmol/L (1.15-1.35)
--- NOTE | 2018-06-03 16:38 | Discharge Summary ---
- NOTES TO OUTPATIENT PROVIDER Notes to Outpatient Provider: Follow-up with GI at [facility] Orders not resulted at time of discharge: Pending orders 06/03/18 12:30 AB IgG SOTERO rflx IFA Routine Immunoglobulin G Subclass 4 Routine Date of Encounter: 06/03/18 Time of Encounter: 11:00 - Discharge Diagnosis (1) Epigastric abdominal pain Priority: Primary Status: Acute (2) Anemia Priority: Secondary Status: Chronic Qualifiers: Anemia type: unspecified type Qualified Code(s): D64.9 - Anemia, unspecified (3) Anxiety and depression Priority: Secondary Status: Chronic (4) CKD (chronic kidney disease) stage 3, GFR 30-59 ml/min Priority: Secondary Status: Acute Hospital course: Ms. Astudillo is a 52 year old female - Time Spent with Patient Total time spent providing and/or coordinating discharge services: - Discharge Medications Home Medications: Tizanidine HCl [Zanaflex] 4 mg PO BID 01/15/16 [History] Venlafaxine XR (24 HR) [Effexor Xr] 75 mg PO DAILY 07/25/17 [History] BuPROPion XL (24 HR) [Wellbutrin Xl] 300 mg PO DAILY 08/20/17 [History] Aripiprazole [Abilify] 20 mg PO DAILY 09/08/17 [History] Cholecalciferol (D-3) [Vitamin D] 5,000 unit PO DAILY 09/08/17 [History] Cyanocobalamin (B-12) [Vitamin B12] 1,000 mcg IM QMONTH 09/08/17 [History] Loratadine [Allergy Relief] 10 mg PO DAILY 12/11/17 [History] Lipase/Protease/Amylase [Creon Dr 6,000 Units Capsule] 1 cap PO QIDAC 12/28/17 [ History] Montelukast [Singulair] 10 mg PO DAILY 03/08/18 [History] Niacin [Plain Niacin] 500 mg PO DAILY 03/08/18 [History] Pantoprazole Sodium 40 mg PO DAILY 03/08/18 [History] Ranitidine HCl [Acid Product Tester Fiberglass] 150 mg PO BID 03/08/18 [History] Temazepam [Restoril] 30 mg PO HS 03/08/18 [History] Ferrous Sulfate 324 mg PO DAILY 04/06/18 [History] Promethazine [Phenergan] 12.5 mg IV Q8HR PRN #5 vial 04/30/18 [Rx] Ondansetron [Zofran] 4 mg PO Q8H PRN 10 Days #20 tablet 05/13/18 [Rx] Allergies/Adverse Reactions: 3 Allergy/AdvReac Type Severity Reaction Status Date / Time butalbital [From Fioricet] Allergy Hives Verified 06/01/18 12:46 caffeine [From Fioricet] Allergy Hives Verified 06/01/18 12:46 [place] Allergy Hives Verified 06/01/18 12:46 phenytoin [From Dilantin] Allergy Hives Verified 06/01/18 12:46 methocarbamol [From Robaxin] AdvReac Vomiting Verified 06/01/18 12:46 Date of admission: 06/01/18 16:17 Primary care physician: Niecy Albarran Consults: 06/02/18 18:21 Consult to Gastroenterology [CONS] Routine Consulting Provider: Gastroenterology [facility] Reason for Consult: History of chronic pancreatitis with gastric bypass Call Completed: Yes - Constitutional Vitals: Temp Pulse Resp BP Pulse Ox 98.5 F 74 15 119/79 97 06/03/18 10:40 06/03/18 10:40 06/03/18 10:40 06/03/18 10:40 06/03/18 10:40 Exam: Gen.: Nonacute distress, alert and oriented 3 ENT: Mucosal membranes moist Respiratory: Lungs are clear to auscultation bilaterally without any wheezing rhonchi or rales Cardiovascular: Normal S1 and S2 regular rate rhythm no murmurs rubs or gallops Abdomen: Soft, nondistended with decreased generalized tenderness to palpation Extremities: No lower extremity edema Skin: Normal color - Patient Status Disposition: Home Health Service Condition: Good - Discharge Instructions Instructions: Pancreatitis (DC) Follow Up With: Niecy Albarran CNP [Primary Care Provider] - Forms: ED Satisfaction Letter, Work/School Release Additional Instructions: Follow up with GI in 1 week. Office should call you to schedule an appointment.
--- NOTE | 2018-06-03 16:39 | Physician Discharge Referral ---
Home Health/Hosp Referral Info Transfer to: Home Health - Diagnosis (1) Epigastric abdominal pain Status: Acute (2) Anemia Status: Chronic (3) Anxiety and depression Status: Chronic (4) DVT prophylaxis Status: Acute - Respiratory Orders Smoking Cessation: Smoking cessation has been advised. For more information, call the [place] Tobacco Quit Line at 1-413-AHLR-NOW. - Services Needed Following services are medically necessary services: Nursing - Transfer Medications Home Medications: Tizanidine HCl [Zanaflex] 4 mg PO BID 01/15/16 [History] Venlafaxine XR (24 HR) [Effexor Xr] 75 mg PO DAILY 07/25/17 [History] BuPROPion XL (24 HR) [Wellbutrin Xl] 300 mg PO DAILY 08/20/17 [History] Aripiprazole [Abilify] 20 mg PO DAILY 09/08/17 [History] Cholecalciferol (D-3) [Vitamin D] 5,000 unit PO DAILY 09/08/17 [History] Cyanocobalamin (B-12) [Vitamin B12] 1,000 mcg IM QMONTH 09/08/17 [History] Loratadine [Allergy Relief] 10 mg PO DAILY 12/11/17 [History] Lipase/Protease/Amylase [Creon Dr 6,000 Units Capsule] 1 cap PO QIDAC 12/28/17 [ History] Montelukast [Singulair] 10 mg PO DAILY 03/08/18 [History] Niacin [Plain Niacin] 500 mg PO DAILY 03/08/18 [History] Pantoprazole Sodium 40 mg PO DAILY 03/08/18 [History] Ranitidine HCl [Acid Shredded Filler Cigar Maker Machine] 150 mg PO BID 03/08/18 [History] Temazepam [Restoril] 30 mg PO HS 03/08/18 [History] Ferrous Sulfate 324 mg PO DAILY 04/06/18 [History] Promethazine [Phenergan] 12.5 mg IV Q8HR PRN #5 vial 04/30/18 [Rx] Ondansetron [Zofran] 4 mg PO Q8H PRN 10 Days #20 tablet 05/13/18 [Rx] Allergies/Adverse Reactions: 3 Allergy/AdvReac Type Severity Reaction Status Date / Time butalbital [From Fioricet] Allergy Hives Verified 06/01/18 12:46 caffeine [From Fioricet] Allergy Hives Verified 06/01/18 12:46 [place] Allergy Hives Verified 06/01/18 12:46 phenytoin [From Dilantin] Allergy Hives Verified 06/01/18 12:46 methocarbamol [From Robaxin] AdvReac Vomiting Verified 06/01/18 12:46 Certification: Further, I certify that my clinical findings support that this patient is homebound (i.e. absences from home require considerable and taxing effort and are for medical reasons or denominational services or infrequently or short duration when for other reasons) because: Homebound Reason: Patient requires assistance of a person or device to safely leave home Attestation: My signature below is to certify that this patient is under my care and that I, or nurse practitioner, or a physician's social research assistant working with me, has a face-to -face encounter with this patient.
[2018-06-06 10:29] LABS: ANA IgG by ELISA NONE DETECTED (None Detected)
== END 2018-06-03 17:03 | disposition home health service (06) ==
LOC: EMEROOARM 12:29 → 3BNU 12:29 → SUATTDRO 16:17 → 3BNU 16:36
PROVIDERS: ADMIT Internal Medicine; ATTEND Hospitalist

== ENCOUNTER 2018-08-07 17:49 | Inpatient (IN) ==
[2018-08-07] MEDS ORDERED: *HR* FentaNYL (PF) 100 MCG/2 ML VIAL IVP ONE ×2 (18:42→22:10)
--- NOTE | 2018-08-07 18:46 | Emergency Department Note ---
Disposition Clinical Impression: Bacteremia Sepsis Qualifiers: Sepsis type: sepsis due to unspecified organism Qualified Code(s): A41.9 - Sepsis, unspecified organism Abdominal pain Qualifiers: Abdominal location: epigastric Qualified Code(s): R10.13 - Epigastric pain Disposition: Admitted As Inpatient Condition: Good Referrals: Niecy Albarran [Primary Care Provider] - Forms: ED Satisfaction Letter, Work/School Release Time of Disposition: 22:11 General Adult HPI - General Chief complaint: ED Abdominal Pain Stated complaint: "vomiting,abd pain" Time Seen by Provider: 08/07/18 18:00 Source: patient Mode of arrival: ambulatory Limitations: no limitations Nursing Notes Reviewed: Yes Vital Signs Reviewed: Yes - History of Present Illness HPI Narrative: Patient is a 52-year-old female that presents the emergency department with worsening of her chronic abdominal pain. Patient states that she has a history of chronic pancreatitis and her pain is gotten significantly worse over the past few days. Patient states that approximately 4-5 days ago she was evaluated at an outside hospital for her pancreatitis and was told to return the emergency department if her pain got worse. Patient states that over the past few days her abdominal pain has gotten significantly worse. Patient states that she has had some vomiting but there is been no blood in her vomit or in her stool. Patient states that the reason for her pancreatitis is due to having previous gastric bypass surgery. Patient states the pain is located in the epigastric region and radiates directly into her back. Patient states this is consistent with her previous pancreatitis only the pain is significantly worse. Patient states that she was called due to the positive blood culture. Patient also repo rts that she has been administering zofran at home through her port. Pain Scale: 9 - Related Data Home Medications Medication Instructions Recorded Confirmed Tizanidine HCl [Zanaflex] 4 mg PO BID 01/15/16 08/07/18 Venlafaxine XR (24 HR) [Effexor Xr] 75 mg PO DAILY 07/25/17 08/07/18 BuPROPion XL (24 HR) [Wellbutrin 300 mg PO DAILY 08/20/17 08/07/18 Xl] Cholecalciferol (D-3) [Vitamin D] 5,000 unit PO DAILY 09/08/17 08/07/18 Cyanocobalamin (B-12) [Vitamin B12] 1,000 mcg IM QMONTH 09/08/17 08/07/18 Loratadine [Allergy Relief] 10 mg PO DAILY 12/11/17 08/07/18 Lipase/Protease/Amylase [[address] Dr 1 cap PO QIDAC 12/28/17 08/07/18 6,000 Units Capsule] Montelukast [Singulair] 10 mg PO DAILY 03/08/18 08/07/18 Niacin [Plain Niacin] 500 mg PO DAILY 03/08/18 08/07/18 Ranitidine HCl [Acid [employer]] 150 mg PO BID 03/08/18 08/07/18 Promethazine [Phenergan] 12.5 mg PO Q8HR PRN 08/03/18 08/07/18 Pantoprazole Sodium 40 mg PO DAILY 08/07/18 08/07/18 Previous Rx's Medication Instructions Recorded Ondansetron [Zofran] 4 mg PO Q8H PRN 10 Days #20 tablet 05/13/18 Allergies Allergy/AdvReac Type Severity Reaction Status Date / Time butalbital [From Fioricet] Allergy Hives Verified 06/01/18 12:46 caffeine [From Fioricet] Allergy Hives Verified 06/01/18 12:46 [place] Allergy Hives Verified 06/01/18 12:46 phenytoin [From Dilantin] Allergy Hives Verified 06/01/18 12:46 methocarbamol [From Robaxin] AdvReac Vomiting Verified 06/01/18 12:46 All systems ED: reviewed and negative except as stated. 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 Absent: respiratory distress, wheezes - Cardiovascular Cardiovascular exam: Present: normal rhythm, tachycardia, normal heart sounds, +S1, +S2 - Abdominal Exam Abdominal exam: Present: soft, tenderness, normal bowel sounds Abdominal tenderness: Present: epigastrium, moderate - Back Exam Back exam: Present: normal inspection, full ROM. Absent: tenderness - Neurological Exam Neurological exam: Present: alert, oriented X3 - Psychiatric Psychiatric exam: Present: normal affect, normal mood - Skin Skin exam: Present: warm, dry, intact Course Vital Signs Temperature 99.1 F 08/07/18 17:51 Pulse Rate 120 08/07/18 17:51 Respiratory Rate 18 08/07/18 17:51 Blood Pressure 195/139 08/07/18 17:51 O2 Sat by Pulse Oximetry 95 08/07/18 17:51 Temperature 99.1 F 08/07/18 17:59 Pulse Rate 94 08/07/18 19:57 Respiratory Rate 18 08/07/18 19:57 Blood Pressure 170/104 08/07/18 22:06 O2 Sat by Pulse Oximetry 100 08/07/18 19:57 Oxygen Delivery Oxygen Delivery Room Air Medical Decision Making - MDM Narrative Medical decision making narrative: Due the patient stating to the emergency department with epigastric abdominal pain consistent with her chronic pancreatitis as well as having positive blood culture from outside hospital with Klebsiella which is unlikely a contaminated the patient will likely need to be admitted to the hospital for further evaluation and management. Basic laboratory testing will be obtained at this time. Patient will also be given a fluid bolus here in the ER. Due to the patient presenting to the emergency department and having positive blood cul tures and positive serology testing at outside hospital patient was started on antibiotics. Patient was started on Rocephin and vancomycin. Patient does have an elevated white count, tachycardia and a source of infection with the positive blood culture the patient by definition meet sepsis criteria. Patient was given 2 L of IV fluids and was started on antibiotics. Patient also had a mild incr ease in her creatinine. The remainder of her laboratory testing was relatively unremarkable. The patient received fluid bolus and an IV antibiotics. Patient was admitted to the hospital service. I called and spoke with Dr. Maria and he was the accepting physician. Patient will be admitted to the hospital at this time for further evaluation and management. - Medical Records Medical records reviewed: Yes I reviewed the patient's medical records. - Lab Data Lab results reviewed: Yes I reviewed the patient's lab results. Result diagrams: 08/07/18 18:31 08/07/18 18:31 Lab Results 08/07/18 08/07/18 08/07/18 Range/Units 18:31 18:31 19:07 WBC 14.0 H D (4.3-11.1) K/mcL RBC 4.65 (3.82-4.97) M/mcL Hgb 12.2 (11.5-15.4) g/dL Hct 36.9 (35.3-44.9) % MCV 79.4 L (83.0-100.0) fL MCH 26.2 L (28.0-33.3) pg MCHC 33.1 (31.6-35.5) g/dL RDW 16.0 H (11.5-14.5) % Plt Count 454 H (140-400) K/mcL MPV 8.7 L (9.4-12.4) fL Immature Gran % 0.4 (0-4) % Seg Neutrophils % 82.9 % Lymphocytes % 10.1 % Monocytes % 6.1 % Eosinophils % 0.1 % Basophils % 0.4 % Neutrophils # 11.6 H (1.6-8.9) K/mcL Lymphocytes # 1.4 (0.6-4.6) K/mcL Monocytes # 0.9 (0.0-1.3) K/mcL Eosinophils # 0.0 (0.0-0.6) K/mcL Basophils # 0.1 (0.0-0.2) K/mcL Sodium 137 (136-145) mEq/L Potassium 3.4 L (3.5-5.1) mEq/L Chloride 96 L (98-107) mEq/L Carbon Dioxide 30 H (23-29) mEq/L BUN 10 (6-20) mg/dL Creatinine 1.23 H (0.60-1.20) mg/dL Est GFR ( Amer) 56 L (> 60) Est GFR (Non-Af Amer) 46 L (> 60) BUN/Creatinine Ratio 8 (6-26) Glucose 105 (70-105) mg/dL Calculated Osmolality 283 (280-300) Lactic Acid 0.8 (0.5-2.2) mmol/L Calcium 9.7 (8.6-10.3) mg/dL Magnesium 1.9 (1.6-2.6) mg/dL Total Bilirubin 0.5 (0.3-1.0) mg/dL Direct Bilirubin 0.1 (0.0-0.2) mg/dL Indirect Bilirubin 0.4 (0.0-1.2) mg/dL AST 17 (13-39) Units/L ALT 25 (7-52) Units/L Alkaline Phosphatase 137 H (34-104) Units/L Serum Total Protein 8.1 (6.4-8.9) g/dL Albumin 4.6 (3.5-5.7) g/dL Globulin 3.5 (2.4-3.5) g/dL Albumin/Globulin Ratio 1.3 (1.1-2.2) Lipase 54 (11-82) Units/L Urine Color (Yellow) Urine Clarity (Clear) Urine pH (5.0-8.0) pH Units Ur Specific [place] (1.010-1.025) Urine Protein (Neg-Trace) mg/dL Urine Glucose (UA) (Normal) mg/dL Urine Ketones (Negative) mg/dL Urine Blood (Negative) Urine Nitrite (Negative) Urine Bilirubin (Negative) Urine Urobilinogen (Normal) mg/dL Ur Leukocyte Esterase (Negative) Ur Culture Indicated? (NO) 08/07/18 Range/Units 19:14 WBC (4.3-11.1) K/mcL RBC (3.82-4.97) M/mcL Hgb (11.5-15.4) g/dL Hct (35.3-44.9) % MCV (83.0-100.0) fL MCH (28.0-33.3) pg MCHC (31.6-35.5) g/dL RDW (11.5-14.5) % Plt Count (140-400) K/mcL MPV (9.4-12.4) fL Immature Gran % (0-4) % Seg Neutrophils % % Lymphocytes % % Monocytes % % Eosinophils % % Basophils % % Neutrophils # (1.6-8.9) K/mcL Lymphocytes # (0.6-4.6) K/mcL Monocytes # (0.0-1.3) K/mcL Eosinophils # (0.0-0.6) K/mcL Basophils # (0.0-0.2) K/mcL Sodium (136-145) mEq/L Potassium (3.5-5.1) mEq/L Chloride (98-107) mEq/L Carbon Dioxide (23-29) mEq/L BUN (6-20) mg/dL Creatinine (0.60-1.20) mg/dL Est GFR ( Amer) (> 60) Est GFR (Non-Af Amer) (> 60) BUN/Creatinine Ratio (6-26) Glucose (70-105) mg/dL Calculated Osmolality (280-300) Lactic Acid (0.5-2.2) mmol/L Calcium (8.6-10.3) mg/dL Magnesium (1.6-2.6) mg/dL Total Bilirubin (0.3-1.0) mg/dL Direct Bilirubin (0.0-0.2) mg/dL Indirect Bilirubin (0.0-1.2) mg/dL AST (13-39) Units/L ALT (7-52) Units/L Alkaline Phosphatase (34-104) Units/L Serum Total Protein (6.4-8.9) g/dL Albumin (3.5-5.7) g/dL Globulin (2.4-3.5) g/dL Albumin/Globulin Ratio (1.1-2.2) Lipase (11-82) Units/L Urine Color Yellow (Yellow) Urine Clarity Clear (Clear) Urine pH 6.5 (5.0-8.0) pH Units Ur Specific [place] 1.014 (1.010-1.025) Urine Protein Negative (Neg-Trace) mg/dL Urine Glucose (UA) Normal (Normal) mg/dL Urine Ketones Negative (Negative) mg/dL Urine Blood Negative (Negative) Urine Nitrite Negative (Negative) Urine Bilirubin Negative (Negative) Urine Urobilinogen Normal (Normal) mg/dL Ur Leukocyte Esterase Negative (Negative) Ur Culture Indicated? NO (NO) - Radiology Data Radiology results reviewed: Yes I reviewed the patient's radiology results. - EKG Data EKG #1 EKG attestation: Yes I reviewed and interpreted this EKG. EKG results narrative: EKG shows a sinus rhythm at a rate of 90 bpm, CA interval 135, QRS duration of 79, QTC of 470. No evidence of STEMI and EKG. This is compared to previous EKG on 04/05/18.
[2018-08-07] MEDS ORDERED: cefTRIAXone 1,000 MG in Water for inj. (sterile) 20 ML 10 ML IVP ONE (18:53)
--- NOTE | 2018-08-07 18:54 | Emergency Department Note ---
Disposition Clinical Impression: Sepsis, Bacteremia, Abdominal pain Disposition: Admitted As Inpatient Condition: Good Referrals: Niecy Albarran [Primary Care Provider] - Forms: ED Satisfaction Letter, Work/School Release General Adult HPI - General Chief complaint: ED Abdominal Pain Stated complaint: "vomiting,abd pain" Time Seen by Provider: 08/07/18 18:00 Source: patient Mode of arrival: ambulatory Limitations: no limitations - History of Present Illness Pain Scale: 9 - Related Data Home Medications Medication Instructions Recorded Confirmed Tizanidine HCl [Zanaflex] 4 mg PO BID 01/15/16 08/07/18 Venlafaxine XR (24 HR) [Effexor Xr] 75 mg PO DAILY 07/25/17 08/07/18 BuPROPion XL (24 HR) [Wellbutrin 300 mg PO DAILY 08/20/17 08/07/18 Xl] Cholecalciferol (D-3) [Vitamin D] 5,000 unit PO DAILY 09/08/17 08/07/18 Cyanocobalamin (B-12) [Vitamin B12] 1,000 mcg IM QMONTH 09/08/17 08/07/18 Loratadine [Allergy Relief] 10 mg PO DAILY 12/11/17 08/07/18 Lipase/Protease/Amylase [[place] Dr 1 cap PO QIDAC 12/28/17 08/07/18 6,000 Units Capsule] Montelukast [Singulair] 10 mg PO DAILY 03/08/18 08/07/18 Niacin [Plain Niacin] 500 mg PO DAILY 03/08/18 08/07/18 Ranitidine HCl [Acid Actuarial Associate] 150 mg PO BID 03/08/18 08/07/18 Promethazine [Phenergan] 12.5 mg PO Q8HR PRN 08/03/18 08/07/18 Pantoprazole Sodium 40 mg PO DAILY 08/07/18 08/07/18 Previous Rx's Medication Instructions Recorded Ondansetron [Zofran] 4 mg PO Q8H PRN 10 Days #20 tablet 05/13/18 Allergies Allergy/AdvReac Type Severity Reaction Status Date / Time butalbital [From Fioricet] Allergy Hives Verified 06/01/18 12:46 caffeine [From Fioricet] Allergy Hives Verified 06/01/18 12:46 [place] Allergy Hives Verified 06/01/18 12:46 phenytoin [From Dilantin] Allergy Hives Verified 06/01/18 12:46 methocarbamol [From Robaxin] AdvReac Vomiting Verified 06/01/18 12:46 Cardiovascular: Denies: chest pain Respiratory: Denies: dyspnea Gastrointestinal: Reports: abdominal pain, nausea, vomiting Past Medical History - Past Medical History Medical history: Reports: asthma, COPD, coronary artery disease, CVA, GERD, hyperlipidemia, myocardial infarction, renal disease, seizures, TIA Surgical history: Reports: cholecystectomy, hysterectomy Psychiatric history: Reports: anxiety, bipolar, depression 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 - Social History Smoking Status: Never smoker Smokeless Tobacco Status: No Alcohol use: Reports: none Drug use: Reports: none Physical Exam - General Limitations: no limitations General appearance: alert, in no apparent distress Course Vital Signs Temperature 99.1 F 08/07/18 17:51 Pulse Rate 120 08/07/18 17:51 Respiratory Rate 18 08/07/18 17:51 Blood Pressure 195/139 08/07/18 17:51 O2 Sat by Pulse Oximetry 95 08/07/18 17:51 Temperature 99.1 F 08/07/18 17:59 Pulse Rate 94 08/07/18 19:57 Respiratory Rate 18 08/07/18 19:57 Blood Pressure 170/104 08/07/18 22:06 O2 Sat by Pulse Oximetry 100 08/07/18 19:57 Oxygen Delivery Oxygen Delivery Room Air Medical Decision Making - Lab Data Result diagrams: 08/07/18 18:31 08/07/18 18:31 Lab Results 08/07/18 08/07/18 08/07/18 Range/Units 18:31 18:31 19:07 WBC 14.0 H D (4.3-11.1) K/mcL RBC 4.65 (3.82-4.97) M/mcL Hgb 12.2 (11.5-15.4) g/dL Hct 36.9 (35.3-44.9) % MCV 79.4 L (83.0-100.0) fL MCH 26.2 L (28.0-33.3) pg MCHC 33.1 (31.6-35.5) g/dL RDW 16.0 H (11.5-14.5) % Plt Count 454 H (140-400) K/mcL MPV 8.7 L (9.4-12.4) fL Immature Gran % 0.4 (0-4) % Seg Neutrophils % 82.9 % Lymphocytes % 10.1 % Monocytes % 6.1 % Eosinophils % 0.1 % Basophils % 0.4 % Neutrophils # 11.6 H (1.6-8.9) K/mcL Lymphocytes # 1.4 (0.6-4.6) K/mcL Monocytes # 0.9 (0.0-1.3) K/mcL Eosinophils # 0.0 (0.0-0.6) K/mcL Basophils # 0.1 (0.0-0.2) K/mcL Sodium 137 (136-145) mEq/L Potassium 3.4 L (3.5-5.1) mEq/L Chloride 96 L (98-107) mEq/L Carbon Dioxide 30 H (23-29) mEq/L BUN 10 (6-20) mg/dL Creatinine 1.23 H (0.60-1.20) mg/dL Est GFR ( Amer) 56 L (> 60) Est GFR (Non-Af Amer) 46 L (> 60) BUN/Creatinine Ratio 8 (6-26) Glucose 105 (70-105) mg/dL Calculated Osmolality 283 (280-300) Lactic Acid 0.8 (0.5-2.2) mmol/L Calcium 9.7 (8.6-10.3) mg/dL Magnesium 1.9 (1.6-2.6) mg/dL Total Bilirubin 0.5 (0.3-1.0) mg/dL Direct Bilirubin 0.1 (0.0-0.2) mg/dL Indirect Bilirubin 0.4 (0.0-1.2) mg/dL AST 17 (13-39) Units/L ALT 25 (7-52) Units/L Alkaline Phosphatase 137 H (34-104) Units/L Serum Total Protein 8.1 (6.4-8.9) g/dL Albumin 4.6 (3.5-5.7) g/dL Globulin 3.5 (2.4-3.5) g/dL Albumin/Globulin Ratio 1.3 (1.1-2.2) Lipase 54 (11-82) Units/L Urine Color (Yellow) Urine Clarity (Clear) Urine pH (5.0-8.0) pH Units Ur Specific [place] (1.010-1.025) Urine Protein (Neg-Trace) mg/dL Urine Glucose (UA) (Normal) mg/dL Urine Ketones (Negative) mg/dL Urine Blood (Negative) Urine Nitrite (Negative) Urine Bilirubin (Negative) Urine Urobilinogen (Normal) mg/dL Ur Leukocyte Esterase (Negative) Ur Culture Indicated? (NO) 08/07/18 Range/Units 19:14 WBC (4.3-11.1) K/mcL RBC (3.82-4.97) M/mcL Hgb (11.5-15.4) g/dL Hct (35.3-44.9) % MCV (83.0-100.0) fL MCH (28.0-33.3) pg MCHC (31.6-35.5) g/dL RDW (11.5-14.5) % Plt Count (140-400) K/mcL MPV (9.4-12.4) fL Immature Gran % (0-4) % Seg Neutrophils % % Lymphocytes % % Monocytes % % Eosinophils % % Basophils % % Neutrophils # (1.6-8.9) K/mcL Lymphocytes # (0.6-4.6) K/mcL Monocytes # (0.0-1.3) K/mcL Eosinophils # (0.0-0.6) K/mcL Basophils # (0.0-0.2) K/mcL Sodium (136-145) mEq/L Potassium (3.5-5.1) mEq/L Chloride (98-107) mEq/L Carbon Dioxide (23-29) mEq/L BUN (6-20) mg/dL Creatinine (0.60-1.20) mg/dL Est GFR ( Amer) (> 60) Est GFR (Non-Af Amer) (> 60) BUN/Creatinine Ratio (6-26) Glucose (70-105) mg/dL Calculated Osmolality (280-300) Lactic Acid (0.5-2.2) mmol/L Calcium (8.6-10.3) mg/dL Magnesium (1.6-2.6) mg/dL Total Bilirubin (0.3-1.0) mg/dL Direct Bilirubin (0.0-0.2) mg/dL Indirect Bilirubin (0.0-1.2) mg/dL AST (13-39) Units/L ALT (7-52) Units/L Alkaline Phosphatase (34-104) Units/L Serum Total Protein (6.4-8.9) g/dL Albumin (3.5-5.7) g/dL Globulin (2.4-3.5) g/dL Albumin/Globulin Ratio (1.1-2.2) Lipase (11-82) Units/L Urine Color Yellow (Yellow) Urine Clarity Clear (Clear) Urine pH 6.5 (5.0-8.0) pH Units Ur Specific [place] 1.014 (1.010-1.025) Urine Protein Negative (Neg-Trace) mg/dL Urine Glucose (UA) Normal (Normal) mg/dL Urine Ketones Negative (Negative) mg/dL Urine Blood Negative (Negative) Urine Nitrite Negative (Negative) Urine Bilirubin Negative (Negative) Urine Urobilinogen Normal (Normal) mg/dL Ur Leukocyte Esterase Negative (Negative) Ur Culture Indicated? NO (NO) Critical Care Time Critical Care Time: Yes Total Critical Care Time: 35 Attestation: Critical care performed: Time is exclusive of separately billable procedures. Time includes: direct patient care, patient reassessment, coordination of patient care, interpretation of data (laboratory data, radiology data, and respiratory data), review of patient's medical records, medical consultation and documentation of patient care. Procedures included in critical care time: Procedures excluded from critical care time: Attestation Statement - Attestation Attestation: I examined this patient and my medical decision-making was reviewed with the Resident Physician. I agree with the documented findings, disposition and treatment plan as described except to the extent set forth below. Patient presents to the emergency department but of abdominal pain. Patient complain to upper, epigastric pain. Onset a few days ago. She was seen at [facility] at that time and states she was told it was a viral illness. Patient states this feels like prior pancreatitis. 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 She has been giving herself Zofran through her port in her chest. Patient states she was also called to one of her blood cultures was positive. On examination she is in no acute distress sitting up in bed. She is tachycardic. Epigastric tenderness. Plan. Basic labs. IV hydration. We will give IV antibiotic for the positive blood culture. Admission. Lipase normal. White count elevated. Concern for bacteremia. IV antibiotics were ordered and will admit. Patient admitted to medicine.
[2018-08-07] MEDS: 0.9 % Sodium Chloride 1,000 ML IVC SCH ×2 (19:02→22:00)
[2018-08-07 19:25] LABS: Basophils # 0.1 K/mcL (0.0-0.2); Basophils % 0.4 %; Eosinophils % 0.1 %; Hematocrit 36.9 % (35.3-44.9); Hemoglobin 12.2 g/dL (11.5-15.4); Immature Granulocytes % 0.4 % (0-4); Lymphocytes # 1.4 K/mcL (0.6-4.6); Lymphocytes % 10.1 %; Mean Corpuscular HGB Conc 33.1 g/dL (31.6-35.5); Mean Corpuscular Hemoglobin 26.2 pg (28.0-33.3); Mean Corpuscular Volume 79.4 fL (83.0-100.0); Mean Platelet Volume 8.7 fL (9.4-12.4); Monocytes # 0.9 K/mcL (0.0-1.3); Monocytes % 6.1 %; Neutrophils # 11.6 K/mcL (1.6-8.9); Platelet Count 454 K/mcL (140-400); Red Blood Count 4.65 M/mcL (3.82-4.97); Segmented Neutrophils % 82.9 %
[2018-08-07 19:36] LABS: Bilirubin,Urine Negative (Negative); Blood,Urine Negative (Negative); Clarity,Urine Clear (Clear); Color,Urine Yellow (Yellow); Glucose,Urine (UA) Normal (Normal); Ketones,Urine Negative (Negative); Leukocyte Esterase,Urine Negative (Negative); Nitrite,Urine Negative (Negative); PH,Urine 6.5 pH Units (5.0-8.0); Protein,Urine Negative (Neg-Trace); Specific Gravity,Urine 1.014 (1.010-1.025); Urobilinogen,Urine Normal (Normal)
[2018-08-07 20:19] LABS: Albumin 4.6 g/dL (3.5-5.7); Albumin/Globulin Ratio 1.3 (1.1-2.2); Bilirubin,Direct 0.1 mg/dL (0.0-0.2); Bilirubin,Indirect 0.4 mg/dL (0.0-1.2); Bilirubin,Total 0.5 mg/dL (0.3-1.0); Calcium 9.7 mg/dL (8.6-10.3); Globulin 3.5 g/dL (2.4-3.5); Magnesium 1.9 mg/dL (1.6-2.6); Potassium 3.4 mEq/L (3.5-5.1); Total Protein 8.1 g/dL (6.4-8.9)
[2018-08-07] MEDS ORDERED: Naloxone 0.4 MG/ML INJ IVP PRN (22:21)
[2018-08-07] MEDS ORDERED: Acetaminophen 325 MG TABLET PO PRN (22:21)
--- NOTE | 2018-08-07 22:32 | Internal Med History&Physical ---
Date of Encounter: 08/07/18 Time of Encounter: 22:25 Internal Medicine - H&P: HPI Chief complaint: Abdominal pain Admitted From: Emergency Dept Plans for Post Hospital Care: Home History of present illness: Ms. Astudillo is a 52 year old female with history of gastric bypass, chronic pancreatitis, COPD, hyperlipidemia, GERD, seizure, renal disease presented to the ED if she was called, and she had positive blood cultures from previous visit to the ED on 08/03 2018 at [place] where she was evaluated there for abdominal pain. At that time she was given IV fluids and antiemetics and felt comfortable going home. Blood cultures were collected and apparently came back positive in 1 set of blood cultures for Klebsiella oxytoca, staph epi with mecA- methicillin res gene positive. I am not exactly sure what prompted collection blood cultures initially. The patient has been afebrile. She continues to complain of significant abdominal pain and she says this is similar to previous chronic pancreatitis flareups. She reports vomiting but no hematemesis. Pain is mostly located in the epigastric area and radiates to the back. The patient was given IV ceftriaxone, IV vancomycin in the ED. Blood cultures were repeated . The patient also was given IV fluids and antiemetics. Her blood pressure in the ED was elevated as initial blood pressure of 195/139. Labs showed leukocytosis with elevated platelets as well and elevated kidney numbers. Lipase and amylase were normal. Urinalysis was unremarkable. She denies any headache, blurry vision, dizziness, chest pain, shortness breath, diarrhea, constipation, urinary symptoms, or neurological symptoms. Past Med Surg Social Fam HX - Past Medical History Medical history: asthma, COPD, coronary artery disease, CVA, GERD, hyperlipidemia, myocardial infarction, renal disease, seizures, TIA Additional medical history: Chronic pancreatitis;malabsorption disorder Psychiatric history: anxiety, bipolar, depression - Past Surgical History Surgical History: cholecystectomy, hysterectomy Additional surgical history: R chest wall port placement - Social History Smoking Status: Never smoker Smokeless Tobacco Status: No Alcohol use: none Drug use: none - Family History Mother Family Member Ethnicity: Non- Living Status: Hx Family Cardiac Disorders: No Hx Family Respiratory Disorders: No Hx Family Cancer: Yes (Esophageal) Hx Family GI Disorders: No Hx Family Endocrine Disorder: No Hx Family Neuromuscular Disorders: No Hx Family Neurologic Disorders: No Hx Family HEENT Disorders: No Hx Family Autoimmune Disorders: No Father Family Member Ethnicity: Non- Living Status: Hx Family Cancer: Yes (Prostate) Hx Family Neurologic Disorders: Yes (Alzheimer's disease) Brother Family Member Ethnicity: Non- Living Status: Still Living Hx Family Neurologic Disorders: Yes (Bipolar) Sister Adopted: No Family Member Ethnicity: Non- Living Status: Hx Family Cardiac Disorders: Yes Hx Family Respiratory Disorders: No Hx Family Cancer: Yes Hx Family GI Disorders: No Hx Family Endocrine Disorder: No Hx Family Neuromuscular Disorders: No Hx Family Neurologic Disorders: No Hx Family HEENT Disorders: No Hx Family Autoimmune Disorders: No Internal Medicine - H&P: Meds Tizanidine HCl [Zanaflex] 4 mg PO BID 01/15/16 [History] Venlafaxine XR (24 HR) [Effexor Xr] 75 mg PO DAILY 07/25/17 [History] BuPROPion XL (24 HR) [Wellbutrin Xl] 300 mg PO DAILY 08/20/17 [History] Cholecalciferol (D-3) [Vitamin D] 5,000 unit PO DAILY 09/08/17 [History] Cyanocobalamin (B-12) [Vitamin B12] 1,000 mcg IM QMONTH 09/08/17 [History] Loratadine [Allergy Relief] 10 mg PO DAILY 12/11/17 [History] Lipase/Protease/Amylase [Creon Dr 6,000 Units Capsule] 1 cap PO QIDAC 12/28/17 [History] Montelukast [Singulair] 10 mg PO DAILY 03/08/18 [History] Niacin [Plain Niacin] 500 mg PO DAILY 03/08/18 [History] Ranitidine HCl [Acid Commission Sales [employer]] 150 mg PO BID 03/08/18 [History] Ondansetron [Zofran] 4 mg PO Q8H PRN 10 Days #20 tablet 05/13/18 [Rx] Promethazine [Phenergan] 12.5 mg PO Q8HR PRN 08/03/18 [History] Pantoprazole Sodium 40 mg PO DAILY 08/07/18 [History] Allergy/AdvReac Type Severity Reaction Status Date / Time butalbital [From Fioricet] Allergy Hives Verified 06/01/18 12:46 caffeine [From Fioricet] Allergy Hives Verified 06/01/18 12:46 [place] Allergy Hives Verified 06/01/18 12:46 phenytoin [From Dilantin] Allergy Hives Verified 06/01/18 12:46 methocarbamol [From Robaxin] AdvReac Vomiting Verified 06/01/18 12:46 All Systems PM: A 10-system review of systems was performed and is negative for pertinent findings except as documented above in the HPI. Review of systems: All systems reviewed are negative except as mentioned above - Constitutional Vitals: Temp Pulse Resp BP Pulse Ox 99.1 F 94 18 170/104 100 08/07/18 17:59 08/07/18 19:57 08/07/18 19:57 08/07/18 22:06 08/07/18 19:57 Exam: GEN: NAD HEENT: AT, NC, No cyanosis, oral mucosa is moist, No JVD Lymphatics: No lymphadenoapthy Eyes: Extrocular muscles intact, anicteric CVS:RRR. S1, S2, No m/r/g RESP: CTAB ABD: Soft, NT, ND, +BS EXT: No edema, No rashes, 2+ DP NEURO: Nonfocal, CN II-XII intact, No focal motor or sensory deficits Psych: Cooperative, Not anxious or depressed Internal Med - H&P Results - Labs CBC & Chem 7: 08/07/18 18:31 08/07/18 18:31 Labs: Short CBC 08/07/18 Range/Units 18:31 WBC 14.0 H D (4.3-11.1) K/mcL Hgb 12.2 (11.5-15.4) g/dL Hct 36.9 (35.3-44.9) % Plt Count 454 H (140-400) K/mcL Neutrophils # 11.6 H (1.6-8.9) K/mcL BMP 08/07/18 18:31 Sodium 137 Potassium 3.4 L Chloride 96 L Carbon Dioxide 30 H BUN 10 Creatinine 1.23 H Glucose 105 Calcium 9.7 Liver Function 08/07/18 Range/Units 18:31 Total Bilirubin 0.5 (0.3-1.0) mg/dL Direct Bilirubin 0.1 (0.0-0.2) mg/dL AST 17 (13-39) Units/L ALT 25 (7-52) Units/L Alkaline Phosphatase 137 H (34-104) Units/L Albumin 4.6 (3.5-5.7) g/dL Urine 11/16/18 Range/Units 19:14 Urine Color Yellow (Yellow) Urine Clarity Clear (Clear) Urine pH 6.5 (5.0-8.0) pH Units Ur Specific [place] 1.014 (1.010-1.025) Urine Protein Negative (Neg-Trace) mg/dL Urine Glucose (UA) Normal (Normal) mg/dL - Assessment and plan (1) Abdominal pain Current Visit: No Status: Resolved Assessment and plan: Seems to be consistent with previous flareups of chronic pancreatitis. Lipase and amylase are normal. No imaging studies done in the ED and I am okay with that for now. If pain is not resolving or may have to think about getting a CT abdomen and pelvis. Continue to treat conservatively. NPO. Pain control. IV fluids. Antiemetics. Qualifiers: Abdominal location: generalized Qualified Code(s): R10.84 - Generalized abdominal pain (2) Chronic pancreatitis Current Visit: No Status: Acute Assessment and plan: Treat as above. I have resumed the patient's Creon. Qualifiers: Pancreatitis type: unspecified pancreatitis type Qualified Code(s): K86.1 - Other chronic pancreatitis (3) Sepsis Current Visit: Yes Status: Acute Assessment and plan: Meets sepsis criteria with positive blood cultures, leukocytosis, tachycardia. Treat underlying cause as below. Lactic acid is normal. Patient has been started on IV fluids as well. Qualifiers: Sepsis type: sepsis due to unspecified organism Qualified Code(s): A41.9 - Sepsis, unspecified organism (4) Bacteremia Current Visit: Yes Status: Acute Assessment and plan: 1 set of blood cultures came back positive for Klebsiella oxytoca, staph epi with mecA-methicillin res gene positive. Unclear source but the patient does h ave a port. Repeat blood cultures sent from the ED. We will continue IV vancomycin and Rocephin given in the ED. We will consult ID. (5) Hypertensive urgency Current Visit: Yes Status: Acute Assessment and plan: I suspect most of this is due to pain. We will add IV hydralazine to be used PRN. We will try to achieve better pain control. (6) GERD (gastroesophageal reflux disease) Current Visit: No Status: Chronic Assessment and plan: We will place the patient on IV PPI. Qualifiers: Esophagitis presence: esophagitis presence not specified Qualified Code(s): K21.9 - Gastro-esophageal reflux disease without esophagitis (7) HLD (hyperlipidemia) Current Visit: No Status: Chronic Assessment and plan: Continue home meds Qualifiers: Hyperlipidemia type: pure hypercholesterolemia Qualified Code(s): E78.00 - Pure hypercholesterolemia, unspecified; E78.0 - Pure hypercholesterolemia (8) Depression Current Visit: No Status: Chronic Assessment and plan: Continue home meds Qualifiers: Depression Type: unspecified Qualified Code(s): F32.9 - Major depressive disorder, single episode, unspecified (9) DVT prophylaxis Current Visit: No Status: Acute Assessment and plan: Heparin subcutaneous - Time Spent With Patient Total time spent is greater than 50% in coordination of care (as documented) at patient's floor/unit and/or counseling patient:
[2018-08-08] MEDS ORDERED: tiZANidine 4 MG TABLET PO ONE (00:23)
[2018-08-08] MEDS: 0.9 % Sodium Chloride 1,000 ML IVC SCH ×2 (00:32→01:52)
[2018-08-08] MEDS: Ondansetron 4 MG/2 ML VIAL IVP PRN ×3 (00:32→15:01)
[2018-08-08] MEDS: *HR* HYDROcodone/Acet 5/325 mg TABLET PO PRN ×4 (01:13→21:35)
[2018-08-08 04:41] LABS: Basophils # 0.1 K/mcL (0.0-0.2); Basophils % 0.8 %; Eosinophils # 0.1 K/mcL (0.0-0.6); Eosinophils % 1.1 %; Hematocrit 31.1 % (35.3-44.9); Immature Granulocytes % 0.2 % (0-4); Lymphocytes # 2.2 K/mcL (0.6-4.6); Lymphocytes % 24.2 %; Mean Corpuscular HGB Conc 31.8 g/dL (31.6-35.5); Mean Corpuscular Hemoglobin 25.8 pg (28.0-33.3); Mean Corpuscular Volume 81.2 fL (83.0-100.0); Mean Platelet Volume 8.6 fL (9.4-12.4); Monocytes # 0.7 K/mcL (0.0-1.3); Monocytes % 7.4 %; Neutrophils # 6.1 K/mcL (1.6-8.9); Platelet Count 357 K/mcL (140-400); Red Blood Count 3.83 M/mcL (3.82-4.97); Red Cell Distribution Width 16.2 % (11.5-14.5); Segmented Neutrophils % 66.3 %
[2018-08-08 04:42] LABS: Hemoglobin 9.9 g/dL (11.5-15.4)
[2018-08-08 05:24] LABS: BUN/Creatinine Ratio 10 (6-26); Blood Urea Nitrogen 10 mg/dL (6-20); Calcium 8.2 mg/dL (8.6-10.3); Carbon Dioxide 27 mEq/L (23-29); Chloride 104 mEq/L (98-107); Glucose 104 mg/dL (70-105); Magnesium 1.8 mg/dL (1.6-2.6); Osmolality,Calculated 289 (280-300); Potassium 3.2 mEq/L (3.5-5.1); Sodium 140 mEq/L (136-145); eGFR For Non-African Americans 59 (> 60)
[2018-08-08] MEDS: *HR* Heparin 5,000 UNIT/ML VIAL SQ SCH ×3 (06:24→21:38)
[2018-08-08] MEDS: Pantoprazole 40 MG VIAL IVP SCH (06:24)
[2018-08-08] MEDS: BuPROPion XL (24 HR) 150 MG TABLET PO SCH (07:54)
[2018-08-08] MEDS: tiZANidine 4 MG TABLET PO SCH ×2 (07:55→21:35)
[2018-08-08] MEDS: Loratadine 10 MG TABLET PO SCH (07:55)
[2018-08-08] MEDS: Famotidine 20 MG TABLET PO SCH ×2 (07:55→17:31)
[2018-08-08] MEDS: Venlafaxine XR (24 HR) 75 MG CAP.ER.24H PO SCH (07:55)
[2018-08-08] MEDS: Cholecalciferol (D-3) 1,000 UNIT TABLET PO SCH (07:55)
[2018-08-08] MEDS: Niacin (24 HR) 500 MG TAB.ER.24H PO SCH (07:55)
[2018-08-08] MEDS ORDERED: Potassium Chloride 20 MEQ, Lidocaine 1% 2 ML in D5% in Water 250 ML IVPB ONE (08:18)
[2018-08-08] MEDS ORDERED: Isovue-370 500 ML INFUS..BTL IV ONE (08:18)
[2018-08-08] MEDS ORDERED: Aminoglycoside Consult 1 EACH MC ONE (08:46)
[2018-08-08] MEDS ORDERED: cefTRIAXone 2,000 MG in Water for inj. (sterile) 20 ML 20 ML IVPB SCH (09:00)
[2018-08-08] MEDS ORDERED: Cyanocobalamin (B-12) 1,000 MCG/ML VIAL IM SCH (09:00)
[2018-08-08] MEDS: 0.9 % Sodium Chloride w KCl 40 MEQ/1,000 ML MLS IVC SCH ×2 (09:28→21:39)
--- NOTE | 2018-08-08 13:19 | Internal Med Progress Note ---
Hospitalist Progress Note - Encounter Date of Encounter: 08/08/18 Time of Encounter: 10:10 - Subjective Interval History: H&P reviewed. Patient with history of gastric bypass, chronic pancreatitis, is admitted for abdominal pain and blood culture results positive for K. oxytoca and S. epidermidis 5 days ago at the outside facility. Reports associated N/V but no diarrhea or dysuria. No fever/chills. Denies any cardiopulmonary symptoms. - Exam Vitals: Temp Pulse Resp BP Pulse Ox 98.2 F 85 20 122/82 97 08/08/18 11:17 08/08/18 11:17 08/08/18 11:17 08/08/18 11:17 08/08/18 11:17 Exam: GEN: NAD CVS:RRR. S1, S2, No m/r/g RESP: CTAB ABD: Soft, mild RUQ tenderness without rebound/rigidity/guarding NEURO: Nonfocal, CN II-XII intact, No focal motor or sensory deficits Psych: Cooperative, Not anxious or depressed - Assessment and Plan (1) Bacteremia Current Visit: Yes Status: Acute Assessment and Plan: 1 set of blood cultures came back positive for Klebsiella oxytoca, staph epi with mecA-methicillin res gene positive on 08/03 done at the outside facility. Unclear source but the patient does have a port. Repeat blood cultures sent from the ED, follow up. Given her abdominal pain and recurrent pancreatitis, will get CT abdo/pelvis to look for ?infected necrosis She also reports history of low back surgery remotely; discussed with the radiologist to look at lumbar spine in detail as well Continue IV vancomycin and Rocephin given in the ED ID consult (2) Sepsis Current Visit: Yes Status: Acute Assessment and Plan: Meets sepsis criteria with positive blood cultures, leukocytosis, tachycardia. Abx as above WBC improving (3) Abdominal pain Current Visit: Yes Status: Acute Assessment and Plan: Seems to be consistent with previous flareups of chronic pancreatitis. Lipase and amylase are normal. Will get CT abdo/pelvis as above which will delineate pancreatic morphology as well Continue conservative treatment. NPO. Pain control. IV fluids. Antiemetics. Creon restarted (4) GERD (gastroesophageal reflux disease) Current Visit: No Status: Chronic Assessment and Plan: on protonix at home will keep the patient on IV PPI for now (5) HLD (hyperlipidemia) Current Visit: No Status: Chronic Assessment and Plan: Continue home meds (6) Chronic pancreatitis Current Visit: No Status: Acute Assessment and Plan: Treat as above. Creon resumed (7) Depression Current Visit: No Status: Chronic Assessment and Plan: Continue home meds (8) Hypertensive urgency Current Visit: Yes Status: Resolved Assessment and Plan: Due to pain. BP improved significantly Continue PRN hydralazine (9) Hypokalemia Current Visit: Yes Status: Acute Assessment and Plan: change IVF to NS with 40meq of KCl will also give 10meq x 2 runs of potassium (10) DVT prophylaxis Current Visit: No Status: Acute Assessment and Plan: Heparin subcutaneous - Time Spent with Patient Total time spent is greater than 50% in coordination of care (as documented) at patient's floor/unit and/or counseling patient: Plan of Care Discussed with: patient Internal Medicine: Result - Labs CBC & Chem 7: 08/08/18 04:14 08/08/18 04:14 Labs: Short CBC 08/07/18 08/08/18 Range/Units 18:31 04:14 WBC 14.0 H D 9.3 (4.3-11.1) K/mcL Hgb 12.2 9.9 L D (11.5-15.4) g/dL Hct 36.9 31.1 L (35.3-44.9) % Plt Count 454 H 357 (140-400) K/mcL Neutrophils # 11.6 H 6.1 (1.6-8.9) K/mcL BMP 08/07/18 08/08/18 18:31 04:14 Sodium 137 140 Potassium 3.4 L 3.2 L Chloride 96 L 104 Carbon Dioxide 30 H 27 BUN 10 10 Creatinine 1.23 H 1.00 Glucose 105 104 Calcium 9.7 8.2 L Liver Function 08/07/18 Range/Units 18:31 Total Bilirubin 0.5 (0.3-1.0) mg/dL Direct Bilirubin 0.1 (0.0-0.2) mg/dL AST 17 (13-39) Units/L ALT 25 (7-52) Units/L Alkaline Phosphatase 137 H (34-104) Units/L Albumin 4.6 (3.5-5.7) g/dL Urine 08/07/18 Range/Units 19:14 Urine Color Yellow (Yellow) Urine Clarity Clear (Clear) Urine pH 6.5 (5.0-8.0) pH Units Ur Specific [place] 1.014 (1.010-1.025) Urine Protein Negative (Neg-Trace) mg/dL Urine Glucose (UA) Normal (Normal) mg/dL - Impressions Impressions Abdomen/Pelvis CT 08/08/18 08:18 IMPRESSION: No acute abnormality is identified. The patient status post gastric bypass procedure. No obvious focal mural thickening or ulceration is detected at the anastomoses. Nonetheless, if there are signs or symptoms referable to that procedure, gastroenterological and/or bariatric surgical consultation would be recommended. Overall unchanged appearance of abdomen and pelvis. D/ / Amando Perez MD / Amando Perez MD Interpreting Provider: Amando Perez MD Consult Discharge Plan - Plan Referrals: Niecy Albarran [Primary Care Provider] - (2) Sepsis Qualifiers: Sepsis type: sepsis due to unspecified organism Qualified Code(s): A41.9 - Sepsis, unspecified organism (3) Abdominal pain Qualifiers: Abdominal location: right upper quadrant Qualified Code(s): R10.11 - Right upper quadrant pain (4) GERD (gastroesophageal reflux disease) Qualifiers: Esophagitis presence: esophagitis presence not specified Qualified Code(s): K21.9 - Gastro-esophageal reflux disease without esophagitis (5) HLD (hyperlipidemia) Qualifiers: Hyperlipidemia type: pure hypercholesterolemia Qualified Code(s): E78.00 - Pure hypercholesterolemia, unspecified; E78.0 - Pure hypercholesterolemia (6) Chronic pancreatitis Qualifiers: Pancreatitis type: unspecified pancreatitis type Qualified Code(s): K86.1 - Other chronic pancreatitis (7) Depression Qualifiers: Depression Type: unspecified Qualified Code(s): F32.9 - Major depressive disorder, single episode, unspecified
[2018-08-09 03:28] LABS: Basophils % 0.7 %; Eosinophils # 0.2 K/mcL (0.0-0.6); Eosinophils % 2.9 %; Hematocrit 30.3 % (35.3-44.9); Hemoglobin 9.5 g/dL (11.5-15.4); Immature Granulocytes % 0.3 % (0-4); Lymphocytes # 1.7 K/mcL (0.6-4.6); Lymphocytes % 29.5 %; Mean Corpuscular HGB Conc 31.4 g/dL (31.6-35.5); Mean Corpuscular Hemoglobin 25.8 pg (28.0-33.3); Mean Corpuscular Volume 82.3 fL (83.0-100.0); Mean Platelet Volume 8.7 fL (9.4-12.4); Monocytes # 0.4 K/mcL (0.0-1.3); Monocytes % 6.4 %; Neutrophils # 3.5 K/mcL (1.6-8.9); Platelet Count 354 K/mcL (140-400); Red Blood Count 3.68 M/mcL (3.82-4.97); Red Cell Distribution Width 16.6 % (11.5-14.5); Segmented Neutrophils % 60.2 %
[2018-08-09 03:48] LABS: BUN/Creatinine Ratio 8 (6-26); Blood Urea Nitrogen 7 mg/dL (6-20); Calcium 8.6 mg/dL (8.6-10.3); Carbon Dioxide 24 mEq/L (23-29); Chloride 107 mEq/L (98-107); Glucose 93 mg/dL (70-105); Osmolality,Calculated 286 (280-300); Sodium 139 mEq/L (136-145); eGFR For Non-African Americans > 60 (> 60)
[2018-08-09] MEDS: *HR* HYDROcodone/Acet 5/325 mg TABLET PO PRN ×3 (06:32→19:03)
[2018-08-09] MEDS: Famotidine 20 MG TABLET PO SCH ×2 (06:32→16:33)
[2018-08-09] MEDS: Pantoprazole 40 MG VIAL IVP SCH (06:33)
[2018-08-09] MEDS: *HR* Heparin 5,000 UNIT/ML VIAL SQ SCH ×3 (06:34→21:35)
[2018-08-09] MEDS: Levofloxacin 750 MG/150 ML 750 MG/150 ML BAG IVPB SCH (08:20)
[2018-08-09] MEDS: Cholecalciferol (D-3) 1,000 UNIT TABLET PO SCH (08:23)
[2018-08-09] MEDS: Venlafaxine XR (24 HR) 75 MG CAP.ER.24H PO SCH (08:23)
[2018-08-09] MEDS: Niacin (24 HR) 500 MG TAB.ER.24H PO SCH (08:23)
[2018-08-09] MEDS: tiZANidine 4 MG TABLET PO SCH ×2 (08:23→21:33)
[2018-08-09] MEDS: BuPROPion XL (24 HR) 150 MG TABLET PO SCH (08:23)
[2018-08-09] MEDS: Loratadine 10 MG TABLET PO SCH (08:23)
[2018-08-09] MEDS: Ondansetron 4 MG/2 ML VIAL IVP PRN ×3 (08:34→21:34)
[2018-08-09] MEDS: 0.9 % Sodium Chloride w KCl 40 MEQ/1,000 ML MLS IVC SCH ×2 (08:34→19:55)
[2018-08-09 10:18] LABS: Acinetobacter baumannii by PCR Not Detected (Not Detect); Candida albicans by PCR Not Detected (Not Detect); Candida glabrata by PCR Not Detected (Not Detect); Candida krusei by PCR Not Detected (Not Detect); Candida parapsilosis by PCR Not Detected (Not Detect); Candida tropicalis by PCR Not Detected (Not Detect); Enterobacter cloacae Cmplx PCR Not Detected (Not Detect); Enterobacteriaceae by PCR DETECTED (Not Detect); Enterococcus by PCR Not Detected (Not Detect); Escherichia coli by PCR Not Detected (Not Detect); Klebsiella oxytoca by PCR DETECTED (Not Detect); Klebsiella pneumoniae by PCR Not Detected (Not Detect); Proteus by PCR Not Detected (Not Detect); Pseudomonas aeruginosa by PCR Not Detected (Not Detect); Serratia marcescens by PCR Not Detected (Not Detect); Staphylococcus aureus by PCR Not Detected (Not Detect); Staphylococcus by PCR Not Detected (Not Detect); Streptococcus agalactiae(B)PCR Not Detected (Not Detect); Streptococcus by PCR Not Detected (Not Detect); Streptococcus pneumoniae PCR Not Detected (Not Detect); Streptococcus pyogenes (A) PCR Not Detected (Not Detect); blaKPC Carbapenem-Resist Gene Not Detected (Not Detect); mecA Methicillin-Resist Gene Not Detected (Not Detect); vanA/B Vancomycin-Resist Genes Not Detected (Not Detect)
--- NOTE | 2018-08-09 11:28 | Internal Med Progress Note ---
Hospitalist Progress Note - Encounter Date of Encounter: 08/09/18 Time of Encounter: 09:10 - Subjective Interval History: More history was obtained regarding her port. SInce her gastric bypass and development of malabsorption, she had been on port for PRN IV fluid and zofran. She had an episode of infecton in 12/2017 which prompted a removal of port but was re-inserted on R chest soon after the discharge. States that her abdominal pain is improving, without significant N/V. No fever/chills. Denies any cardiopulmonary symptoms. - Exam Vitals: Temp Pulse Resp BP Pulse Ox 97.3 F L 91 20 133/86 93 08/09/18 07:27 08/09/18 07:27 08/09/18 07:27 08/09/18 07:27 08/09/18 09:03 Exam: GEN: NAD Chest: R port site appears clean, no erythema, fluctuance, or localized swelling. No crepitus. L chest scar from the previous port also appears to be well-healed. CVS:RRR. S1, S2, No m/r/g RESP: CTAB ABD: Soft, non-tender, no rebound/rigidity/guarding NEURO: Nonfocal, CN II-XII intact, No focal motor or sensory deficits Psych: Cooperative, Not anxious or depressed - Assessment and Plan (1) Bacteremia Current Visit: Yes Status: Acute Assessment and Plan: 1 set of blood cultures on 08/03 came back positive for Klebsiella oxytoca, staph epi with mecA-methicillin res gene positive on 08/03 done at the outside facility. Unclear source but the patient does have a port. CT scan was negative for any infected pancreatic necrosis or epidural collection in lumbar spine where she had her surgery Repeat blood cultures sent on 08/07 growing GNR Upon further review of her admission record from 12/2017; she had previous K. oxytoca bacteremia associated with port infection However, her port sites (both current and previous) look unremarkable and she is rapidly improving on current abx repeat culture from port and periphery today switch abx to IV levaquin which both K. oxytoca and S. epi are sensitive to Check with ID tomorrow for possible line removal +/- imaging (2) Sepsis Current Visit: Yes Status: Acute Assessment and Plan: Meets sepsis criteria with positive blood cultures, leukocytosis, tachycardia. Abx as above WBC improving (3) Abdominal pain Current Visit: Yes Status: Acute Assessment and Plan: Seems to be consistent with previous flareups of chronic pancreatitis. Lipase and amylase are normal. CT did not show any evidence of pancreatitis advance diet as tolerated, can d/c IVF if she tolerates well Pain control. Antiemetics. Creon restarted (4) GERD (gastroesophageal reflux disease) Current Visit: No Status: Chronic Assessment and Plan: Resume oral Protonix (5) HLD (hyperlipidemia) Current Visit: No Status: Chronic Assessment and Plan: Continue home meds (6) Chronic pancreatitis Current Visit: No Status: Acute Assessment and Plan: Treat as above. Creon resumed (7) Depression Current Visit: No Status: Chronic Assessment and Plan: Continue home meds (8) Hypertensive urgency Current Visit: Yes Status: Resolved Assessment and Plan: Due to pain. BP improved significantly Continue PRN hydralazine (9) Hypokalemia Current Visit: Yes Status: Resolved Assessment and Plan: normalized (10) DVT prophylaxis Current Visit: No Status: Acute Assessment and Plan: Heparin subcutaneous - Time Spent with Patient Total time spent is greater than 50% in coordination of care (as documented) at patient's floor/unit and/or counseling patient: Plan of Care Discussed with: nurse Internal Medicine: Result - Labs CBC & Chem 7: 08/09/18 03:17 08/09/18 03:17 Labs: Short CBC 08/09/18 Range/Units 03:17 WBC 5.8 (4.3-11.1) K/mcL Hgb 9.5 L (11.5-15.4) g/dL Hct 30.3 L (35.3-44.9) % Plt Count 354 (140-400) K/mcL Neutrophils # 3.5 (1.6-8.9) K/mcL BMP 08/09/18 03:17 Sodium 139 Potassium 4.0 Chloride 107 Carbon Dioxide 24 BUN 7 Creatinine 0.86 Glucose 93 Calcium 8.6 Consult Discharge Plan - Plan Referrals: Niecy Albarran [Primary Care Provider] - (2) Sepsis Qualifiers: Sepsis type: sepsis due to unspecified organism Qualified Code(s): A41.9 - Sepsis, unspecified organism (3) Abdominal pain Qualifiers: Abdominal location: right upper quadrant Qualified Code(s): R10.11 - Right upper quadrant pain (4) GERD (gastroesophageal reflux disease) Qualifiers: Esophagitis presence: esophagitis presence not specified Qualified Code(s): K21.9 - Gastro-esophageal reflux disease without esophagitis (5) HLD (hyperlipidemia) Qualifiers: Hyperlipidemia type: pure hypercholesterolemia Qualified Code(s): E78.00 - Pure hypercholesterolemia, unspecified; E78.0 - Pure hypercholesterolemia (6) Chronic pancreatitis Qualifiers: Pancreatitis type: unspecified pancreatitis type Qualified Code(s): K86.1 - Other chronic pancreatitis (7) Depression Qualifiers: Depression Type: unspecified Qualified Code(s): F32.9 - Major depressive disorder, single episode, unspecified
[2018-08-10] MEDS: *HR* HYDROcodone/Acet 5/325 mg TABLET PO PRN ×3 (03:51→19:00)
[2018-08-10 04:09] LABS: Basophils # 0.1 K/mcL (0.0-0.2); Basophils % 0.9 %; Eosinophils # 0.2 K/mcL (0.0-0.6); Eosinophils % 3.2 %; Hematocrit 31.4 % (35.3-44.9); Hemoglobin 9.9 g/dL (11.5-15.4); Immature Granulocytes % 0.1 % (0-4); Lymphocytes # 2.4 K/mcL (0.6-4.6); Lymphocytes % 35.6 %; Mean Corpuscular HGB Conc 31.5 g/dL (31.6-35.5); Mean Corpuscular Hemoglobin 25.9 pg (28.0-33.3); Mean Corpuscular Volume 82.2 fL (83.0-100.0); Mean Platelet Volume 8.5 fL (9.4-12.4); Monocytes # 0.6 K/mcL (0.0-1.3); Monocytes % 9.2 %; Neutrophils # 3.5 K/mcL (1.6-8.9); Platelet Count 385 K/mcL (140-400); Red Blood Count 3.82 M/mcL (3.82-4.97); Red Cell Distribution Width 16.7 % (11.5-14.5)
[2018-08-10 04:27] LABS: BUN/Creatinine Ratio 7 (6-26); Blood Urea Nitrogen 6 mg/dL (6-20); Calcium 8.7 mg/dL (8.6-10.3); Carbon Dioxide 27 mEq/L (23-29); Chloride 105 mEq/L (98-107); Glucose 97 mg/dL (70-105); Osmolality,Calculated 286 (280-300); Potassium 4.1 mEq/L (3.5-5.1); Sodium 139 mEq/L (136-145); eGFR For Non-African Americans > 60 (> 60)
[2018-08-10] MEDS: *HR* Heparin 5,000 UNIT/ML VIAL SQ SCH ×3 (05:49→21:05)
[2018-08-10] MEDS: 0.9 % Sodium Chloride w KCl 40 MEQ/1,000 ML MLS IVC SCH (05:50)
[2018-08-10] MEDS: Famotidine 20 MG TABLET PO SCH ×2 (05:52→16:16)
[2018-08-10] MEDS: BuPROPion XL (24 HR) 150 MG TABLET PO SCH (07:31)
[2018-08-10] MEDS: tiZANidine 4 MG TABLET PO SCH ×2 (07:32→20:00)
[2018-08-10] MEDS: Cholecalciferol (D-3) 1,000 UNIT TABLET PO SCH (07:32)
[2018-08-10] MEDS: Venlafaxine XR (24 HR) 75 MG CAP.ER.24H PO SCH (07:32)
[2018-08-10] MEDS: Niacin (24 HR) 500 MG TAB.ER.24H PO SCH (07:32)
[2018-08-10] MEDS: Levofloxacin 750 MG/150 ML 750 MG/150 ML BAG IVPB SCH (07:32)
[2018-08-10] MEDS: Loratadine 10 MG TABLET PO SCH (07:32)
[2018-08-10] MEDS: Ondansetron 4 MG/2 ML VIAL IVP PRN ×3 (09:30→21:05)
--- NOTE | 2018-08-10 11:39 | Internal Med Progress Note ---
Hospitalist Progress Note - Encounter Date of Encounter: 08/10/18 Time of Encounter: 09:00 - Subjective Interval History: More history was obtained regarding her port. SInce her gastric bypass and development of malabsorption, she had been on port for PRN IV fluid and zofran. She had an episode of infecton in 12/2017 which prompted a removal of port but was re-inserted on R chest soon after the discharge. States that her abdominal pain is improving, without significant N/V. No fever/chills. Denies any cardiopulmonary symptoms. - Exam Vitals: Temp Pulse Resp BP Pulse Ox 98.4 F 85 17 143/84 96 08/10/18 07:56 08/10/18 07:56 08/10/18 07:56 08/10/18 07:56 08/10/18 07:56 Exam: GEN: NAD Chest: R port site appears clean, no erythema, fluctuance, or localized swelling. No crepitus. L chest scar from the previous port also appears to be well-healed. CVS:RRR. S1, S2, No m/r/g RESP: CTAB ABD: Soft, non-tender, no rebound/rigidity/guarding NEURO: Nonfocal, CN II-XII intact, No focal motor or sensory deficits Psych: Cooperative, Not anxious or depressed - Assessment and Plan (1) Bacteremia Current Visit: Yes Status: Acute Assessment and Plan: 1 set of blood cultures on 08/03 came back positive for Klebsiella oxytoca, staph epi with mecA-methicillin res gene positive on 08/03 done at the outside facility. Unclear source but the patient does have a port. CT scan was negative for any infected pancreatic necrosis or epidural collection in lumbar spine where she had her surgery Repeat blood cultures sent on 08/07 growing K. oxytoca, identical to the prior admission in 12/2017 when she was treated for port infection However, her port sites (both current and previous) look unremarkable and she is rapidly improving on current abx, continues to be afebrile with resolution of leukocytosis repeat culture from port and periphery from 08/09 pending Continue IV levaquin which both K. oxytoca and S. epi are sensitive to Follow with ID today (2) Sepsis Current Visit: Yes Status: Acute Assessment and Plan: Meets sepsis criteria with positive blood cultures, leukocytosis, tachycardia. Abx as above WBC normal x 3 days (3) Abdominal pain Current Visit: Yes Status: Acute Assessment and Plan: Seems to be consistent with previous flareups of chronic pancreatitis. Lipase and amylase are normal. CT did not show any evidence of pancreatitis tolerating diet, continue Pain control. Antiemetics. Creon restarted (4) GERD (gastroesophageal reflux disease) Current Visit: No Status: Chronic Assessment and Plan: Resume oral Protonix (5) HLD (hyperlipidemia) Current Visit: No Status: Chronic Assessment and Plan: Continue home meds (6) Chronic pancreatitis Current Visit: No Status: Acute Assessment and Plan: Treat as above. Creon resumed (7) Depression Current Visit: No Status: Chronic Assessment and Plan: Continue home meds (8) Hypertensive urgency Current Visit: Yes Status: Resolved Assessment and Plan: Due to pain. BP improved significantly Continue PRN hydralazine (9) Hypokalemia Current Visit: Yes Status: Resolved Assessment and Plan: normalized (10) DVT prophylaxis Current Visit: No Status: Acute Assessment and Plan: Heparin subcutaneous - Time Spent with Patient Total time spent is greater than 50% in coordination of care (as documented) at patient's floor/unit and/or counseling patient: Plan of Care Discussed with: patient Internal Medicine: Result - Labs CBC & Chem 7: 08/10/18 03:56 08/10/18 03:56 Labs: Short CBC 08/10/18 Range/Units 03:56 WBC 6.8 (4.3-11.1) K/mcL Hgb 9.9 L (11.5-15.4) g/dL Hct 31.4 L (35.3-44.9) % Plt Count 385 (140-400) K/mcL Neutrophils # 3.5 (1.6-8.9) K/mcL BMP 08/10/18 03:56 Sodium 139 Potassium 4.1 Chloride 105 Carbon Dioxide 27 BUN 6 Creatinine 0.81 Glucose 97 Calcium 8.7 Consult Discharge Plan - Plan Referrals: Niecy Albarran [Primary Care Provider] - (2) Sepsis Qualifiers: Sepsis type: sepsis due to unspecified organism Qualified Code(s): A41.9 - Sepsis, unspecified organism (3) Abdominal pain Qualifiers: Abdominal location: right upper quadrant Qualified Code(s): R10.11 - Right upper quadrant pain (4) GERD (gastroesophageal reflux disease) Qualifiers: Esophagitis presence: esophagitis presence not specified Qualified Code(s): K21.9 - Gastro-esophageal reflux disease without esophagitis (5) HLD (hyperlipidemia) Qualifiers: Hyperlipidemia type: pure hypercholesterolemia Qualified Code(s): E78.00 - Pure hypercholesterolemia, unspecified; E78.0 - Pure hypercholesterolemia (6) Chronic pancreatitis Qualifiers: Pancreatitis type: unspecified pancreatitis type Qualified Code(s): K86.1 - Other chronic pancreatitis (7) Depression Qualifiers: Depression Type: unspecified Qualified Code(s): F32.9 - Major depressive disorder, single episode, unspecified
--- NOTE | 2018-08-10 13:16 | Infectious Disease Consult ---
Date of Encounter: 08/10/18 Time of Encounter: 13:07 Assessment and Plan (1) Gram-negative bacteremia Status: Acute Assessment and plan: Causative organism klebsiella oxytoca that is resistant to ampicillin and cefazolin. 2 out of 2 sets positive Source not clear could be intra-abdominal versus other Patient has Klebsiella oxytoca bacteremia and December 2017 as well and was treated with oral Levaquin. At that time she also had MSSA bacteremia and a ABNER was done by Dr. davis which was negative for endocarditis DC levofloxacin *Ceftriaxone 2 g IV every 24 hours If blood cultures from 08/09/2018 stain negative tomorrow morning, consider switching the patient to oral Omnicef or levofloxacin or Bactrim to finish a 14- 21 day course. If patient has recurrence of infection I would be concerned for intra-abdominal process and may be due CT abdomen and pelvis. We will discuss with the primary team. (2) Complications of gastric bypass surgery Status: Chronic (3) Depression Status: Chronic Qualifiers: Depression Type: unspecified Qualified Code(s): F32.9 - Major depressive disorder, single episode, unspecified (4) Pancreatitis Status: Chronic Qualifiers: Chronicity: acute Pancreatitis type: unspecified pancreatitis type Acute pancreatitis complication: unspecified Qualified Code(s): K85.90 - Acute pancreatitis without necrosis or infection, unspecified (5) Seizure disorder Status: Chronic (6) Nausea and vomiting Status: Resolved Qualifiers: Vomiting type: unspecified Vomiting Intractability: non-intractable Qualified Code(s): R11.2 - Nausea with vomiting, unspecified Infectious Disease HPI - Data of Consult Patient: new to practice Consult date: 08/10/18 Requesting Physician: Kolton Young MD Primary Care Provider: Niecy Albarran - Consult Narrative Reason for consult: Bacteremia History of present illness: Ms. Astudillo is a 52 year old female Patient is a 52-year-old woman who presented to [facility] on 08/07/2018 with abdominal pain. We are consulted today on 08/10/2018 for bacteremia. Patient is a 52-year-old woman with past medical history mentioned below including history of gastric bypass, chronic pancreatitis, COPD, hyperlipidemia, GERD and history of seizure disorder presented to [facility] initially to the emergency department on 08/03/2018 with epigastric pain. Patient was stabilized and treated sometime and symptomatically and discharged home from the ED. Later blood cultures from that encounter came back positive for Klebsiella oxytoca and staph epi 1 out of 2 sets. The Klebsiella oxytoca was pansensitive with the exception of ampicillin. Patient was called and there asked her to come back to the emergency department for evaluation. Since admission, patient has been afebrile with a MAXIMUM TEMPERATURE of 99.1. Initially she was tachycardic with a heart rate in the 120s. Patient was also tachypneic. Presenting labs revealed a WBC of 14,000 with 83% neutrophils no bands. Patient also was in acute kidney injury with a BUN of 10 and creatinine 1.23. A urinalysis was obtained and it came back negative. Repeat blood cultures were obtained and 2 out of 2 sets were positive for Klebsiella oxytoca R: Ampicillin, cefazolin. CT of the abdomen/pelvis obtained on 08/08/2018 revealed no acute abnormality. Patient was started on IV levofloxacin. We are asked to evaluate the patient's make further recommendations. Currently patient appears comfortable laying in bed. No acute distress. Denies any issues of symptoms chronic back pain. Patient does have a central a port in the right chest that does not appear infected but she accesses it every day for fluids but no TPN. CC: Kolton Young MD Past Med Surg Social Fam HX - Past Medical History Medical history: asthma, COPD, coronary artery disease, CVA, GERD, hyperlipidemia, myocardial infarction, renal disease, seizures, TIA Additional medical history: Chronic pancreatitis;malabsorption disorder Psychiatric history: anxiety, bipolar, depression - Past Surgical History Surgical History: cholecystectomy, hysterectomy Additional surgical history: R chest wall port placement - Social History Smoking Status: Never smoker Smokeless Tobacco Status: No Alcohol use: none Drug use: none - Family History Brother Family Member Ethnicity: Non- Living Status: Still Living Hx Family Neurologic Disorders: Yes (Bipolar) Father Family Member Ethnicity: Non- Living Status: Hx Family Cancer: Yes (Prostate) Hx Family Neurologic Disorders: Yes (Alzheimer's disease) Mother Family Member Ethnicity: Non- Living Status: Hx Family Cardiac Disorders: No Hx Family Respiratory Disorders: No Hx Family Cancer: Yes (Esophageal) Hx Family GI Disorders: No Hx Family Endocrine Disorder: No Hx Family Neuromuscular Disorders: No Hx Family Neurologic Disorders: No Hx Family HEENT Disorders: No Hx Family Autoimmune Disorders: No Sister Adopted: No Family Member Ethnicity: Non- Living Status: Hx Family Cardiac Disorders: Yes Hx Family Respiratory Disorders: No Hx Family Cancer: Yes Hx Family GI Disorders: No Hx Family Endocrine Disorder: No Hx Family Neuromuscular Disorders: No Hx Family Neurologic Disorders: No Hx Family HEENT Disorders: No Hx Family Autoimmune Disorders: No Infectious Disease-CN:Meds RX: Tizanidine HCl [Zanaflex] 4 mg PO BID 01/15/16 [History] RX: Venlafaxine XR (24 HR) [Effexor Xr] 75 mg PO DAILY 07/25/17 [History] RX: BuPROPion XL (24 HR) [Wellbutrin Xl] 300 mg PO DAILY 08/20/17 [History] RX: Cholecalciferol (D-3) [Vitamin D] 5,000 unit PO DAILY 09/08/17 [History] RX: Cyanocobalamin (B-12) [Vitamin B12] 1,000 mcg IM QMONTH 09/08/17 [History] RX: Loratadine [Allergy Relief] 10 mg PO DAILY 12/11/17 [History] RX: Lipase/Protease/Amylase [Creon Dr 6,000 Units Capsule] 1 cap PO QIDAC 12/28/17 [History] RX: Montelukast [Singulair] 10 mg PO DAILY 03/08/18 [History] RX: Niacin [Plain Niacin] 500 mg PO DAILY 03/08/18 [History] RX: Ranitidine HCl [Acid Wireless Architect] 150 mg PO BID 03/08/18 [History] RX: Ondansetron [Zofran] 4 mg PO Q8H PRN 10 Days #20 tablet 05/13/18 [Rx] RX: Promethazine [Phenergan] 12.5 mg PO Q8HR PRN 08/03/18 [History] RX: Pantoprazole Sodium 40 mg PO DAILY 08/07/18 [History] Allergy/AdvReac Type Severity Reaction Status Date / Time butalbital [From Fioricet] Allergy Hives Verified 06/01/18 12:46 caffeine [From Fioricet] Allergy Hives Verified 06/01/18 12:46 [place] Allergy Hives Verified 06/01/18 12:46 phenytoin [From Dilantin] Allergy Hives Verified 06/01/18 12:46 methocarbamol [From Robaxin] AdvReac Vomiting Verified 06/01/18 12:46 Review of systems: 10 point review of systems done, negative other for what mentioned in history of present illness Exam - Constitutional Vitals: Temp Pulse Resp BP Pulse Ox 97.8 F 92 16 131/85 99 08/10/18 12:42 08/10/18 12:42 08/10/18 12:42 08/10/18 12:42 08/10/18 12:42 General appearance: no acute distress, no febrile - Head Head exam: Present: atraumatic, normocephalic - Eye Eye exam: Present: EOMI, PERRL, sclera anicteric - ENT ENT exam: Present: mucous membranes moist, normal exam - Neck Neck exam: Present: full ROM. Absent: meningismus - Respiratory Respiratory exam: Present: CTAB. Absent: wheezes - Cardiovascular Cardiovascular exam: Present: RRR, +S1, +S2. Absent: diastolic murmur, systolic murmur Additional comments: A port right chest intact with no surrounding erythema or drainage or signs of infection - GI/Abdominal GI/Abdominal exam: Present: normal bowel sounds, soft. Absent: tenderness - Extremities Exam Extremities exam: Present: normal inspection - Neurological Exam Neurological exam: Present: alert, oriented X3. Absent: speech deficit Infectious Disease CN: Results - Labs CBC & Chem 7: 08/10/18 03:56 08/10/18 03:56 Cultures: Cultures 08/07/18 19:07 Blood Culture - Final Peripheral Venipuncture Klebsiella oxytoca 08/07/18 19:08 Blood Culture - Final Peripheral Venipuncture Klebsiella oxytoca 08/09/18 17:48 Blood Culture - Preliminary Port System Culture is incubating and being continuously monitored for growth. Final report to follow. 08/09/18 17:53 Blood Culture - Preliminary Port System Culture is incubating and being continuously monitored for growth. Final report to follow. Serology: Serology 08/07/18 08/07/18 Range/Units 19:14 19:08 Urine Color Yellow (Yellow) Urine Clarity Clear (Clear) Urine pH 6.5 (5.0-8.0) pH Units Ur Specific [place] 1.014 (1.010-1.025) Urine Protein Negative (Neg-Trace) mg/dL Urine Glucose (UA) Normal (Normal) mg/dL Urine Ketones Negative (Negative) mg/dL Urine Blood Negative (Negative) Urine Nitrite Negative (Negative) Urine Bilirubin Negative (Negative) Urine Urobilinogen Normal (Normal) mg/dL Ur Leukocyte Esterase Negative (Negative) Ur Culture Indicated? NO (NO) A. baumannii (PCR) Not Detected (Not Detect) Lindsay albicans (PCR) Not Detected (Not Detect) C. glabrata (PCR) Not Detected (Not Detect) C. krusei (PCR) Not Detected (Not Detect) C. parapsilosis (PCR) Not Detected (Not Detect) C. tropicalis (PCR) Not Detected (Not Detect) Enterobacteriac sp PCR DETECTED A (Not Detect) E. cloacae complex PCR Not Detected (Not Detect) Enterococcus sp PCR Not Detected (Not Detect) E. coli (PCR) Not Detected (Not Detect) H. influenzae (PCR) Not Detected (Not Detect) Klebsiella oxytoca PCR DETECTED A (Not Detect) Klebsiella pneumoniae Not Detected (Not Detect) List. monocytogenes PCR Not Detected (Not Detect) N. meningitidis (PCR) Not Detected (Not Detect) Proteus species (PCR) Not Detected (Not Detect) Serratia marcescens PCR Not Detected (Not Detect) Staphylococcus sp PCR Not Detected (Not Detect) Staph aureus (PCR) Not Detected (Not Detect) mecA-Methicil Res Gene Not Detected (Not Detect) Streptococcus sp PCR Not Detected (Not Detect) Group A Strep DNA Not Detected (Not Detect) Group B Strep (PCR) Not Detected (Not Detect) Strep pneumoniae (PCR) Not Detected (Not Detect) P. aeruginosa (PCR) Not Detected (Not Detect) Kathy/B-Vanco Res Genes Not Detected (Not Detect) KPC (blaKPC) Detect PCR Not Detected (Not Detect) Consult Discharge Plan - Plan Referrals: Niecy Albarran [Primary Care Provider] -
--- NOTE | 2018-08-10 17:48 | Electrocardiograph Report ---
[address] [place], [place] [address] Test Date: 2018-08-07 Pat Name: Amol Astudillo Department: [id number] Room: 2A37 Gender: F Operational Intelligence Analyst: : 1965 Requested By: Misty See Order Number: [id number] Reading MD: Bridgette Gresham Measurements Intervals [place] Rate: 98 P: 49 IN: 135 QRS: 17 QRSD: 79 T: 58 QT: 368 QTc: 470 Interpretive Statements Sinus rhythm Electronically Signed On 08-10-2018 17:47:02 EST by Bridgette Gresham
[2018-08-11] MEDS: *HR* HYDROcodone/Acet 5/325 mg TABLET PO PRN ×3 (02:31→13:26)
[2018-08-11] MEDS: *HR* Heparin 5,000 UNIT/ML VIAL SQ SCH ×2 (05:24→13:26)
[2018-08-11 05:39] LABS: Basophils # 0.1 K/mcL (0.0-0.2); Basophils % 0.8 %; Eosinophils # 0.2 K/mcL (0.0-0.6); Eosinophils % 2.6 %; Hematocrit 32.7 % (35.3-44.9); Hemoglobin 10.3 g/dL (11.5-15.4); Immature Granulocytes % 0.4 % (0-4); Lymphocytes # 2.4 K/mcL (0.6-4.6); Lymphocytes % 30.2 %; Mean Corpuscular HGB Conc 31.5 g/dL (31.6-35.5); Mean Corpuscular Hemoglobin 26.1 pg (28.0-33.3); Mean Platelet Volume 8.5 fL (9.4-12.4); Monocytes # 0.5 K/mcL (0.0-1.3); Monocytes % 6.3 %; Neutrophils # 4.8 K/mcL (1.6-8.9); Platelet Count 423 K/mcL (140-400); Red Blood Count 3.94 M/mcL (3.82-4.97); Red Cell Distribution Width 16.7 % (11.5-14.5); Segmented Neutrophils % 59.7 %
[2018-08-11 05:57] LABS: BUN/Creatinine Ratio 8 (6-26); Blood Urea Nitrogen 7 mg/dL (6-20); Carbon Dioxide 27 mEq/L (23-29); Chloride 103 mEq/L (98-107); Glucose 119 mg/dL (70-105); Osmolality,Calculated 287 (280-300); Potassium 3.6 mEq/L (3.5-5.1); Sodium 139 mEq/L (136-145); eGFR For Non-African Americans > 60 (> 60)
[2018-08-11] MEDS: Niacin (24 HR) 500 MG TAB.ER.24H PO SCH (08:36)
[2018-08-11] MEDS: Levofloxacin 750 MG/150 ML 750 MG/150 ML BAG IVPB SCH (08:36)
[2018-08-11] MEDS: Ondansetron 4 MG/2 ML VIAL IVP PRN ×2 (08:36→13:26)
[2018-08-11] MEDS: Venlafaxine XR (24 HR) 75 MG CAP.ER.24H PO SCH (08:37)
[2018-08-11] MEDS: Loratadine 10 MG TABLET PO SCH (08:37)
[2018-08-11] MEDS: Cholecalciferol (D-3) 1,000 UNIT TABLET PO SCH (08:37)
[2018-08-11] MEDS: Famotidine 20 MG TABLET PO SCH ×2 (08:37→15:41)
[2018-08-11] MEDS: tiZANidine 4 MG TABLET PO SCH (08:37)
[2018-08-11] MEDS: BuPROPion XL (24 HR) 150 MG TABLET PO SCH (08:37)
--- NOTE | 2018-08-11 09:58 | Infectious Disease Progress No ---
Date of Encounter: 08/11/18 Time of Encounter: 09:56 - Assessment and Plan (1) Gram-negative bacteremia Current Visit: Yes Status: Acute Causative organism: Klebsiella oxytoca. Source: Unclear. Concern for intra-abdominal versus other. This is recurrent bacteremia as the patient was positive back in December 2017 as well. She was treated with oral Levaquin. At that time, she also had MSSA bacteremia and a ABNER was completed that was negative for endocarditis. The patient does have an a-port, but clinically does not appear infected. No cultures were drawn from the a-port initially. Blood cultures drawn 08/07/18 are positive 2/2 sets (drawn peripherally) for K. oxytoca. Repeat blood cultures drawn 08/09/18 (from a-port) are NGTD x 2 sets. Currently on IV Levaquin. Recommendations: - Await cultures to finalize. - Discontinue levaquin. - Start rocephin 2 grams IV daily. - Duration of treatment depends on the clinical picture, but likely a total of 14 days from the first set of negative blood cultures. Can likely switch to PO Omnifec 300mg BID to complete course of treatment when ready for discharge. Treat through 08/22/18. - If bacteremia recurs, may need to consider additional workup to identify source/reason for recurrence. - Monitor renal function and dose-adjust antibiotics. (2) Pancreatitis Current Visit: No Status: Chronic Chronic. Secondary to previous gastric bypass. Management per the primary team. Qualifiers: Chronicity: acute Pancreatitis type: unspecified pancreatitis type Acute pancreatitis complication: unspecified Qualified Code(s): K85.90 - Acute pancreatitis without necrosis or infection, unspecified (3) Nausea and vomiting Current Visit: No Status: Resolved Qualifiers: Vomiting type: unspecified Vomiting Intractability: non-intractable Qualified Code(s): R11.2 - Nausea with vomiting, unspecified (4) Complications of gastric bypass surgery Current Visit: No Status: Chronic (5) CKD (chronic kidney disease) stage 3, GFR 30-59 ml/min Current Visit: No Status: Acute (6) Depression Current Visit: No Status: Chronic Qualifiers: Depression Type: unspecified Qualified Code(s): F32.9 - Major depressive disorder, single episode, unspecified (7) Seizure disorder Current Visit: No Status: Chronic - Subjective Interval history: Patient seen and examined. No acute events noted overnight. Patient states overall she feels well and wants to go home. Denies any fevers or chills or rigors. Denies chest pain, shortness of breath, or cough. She reports chronic nausea and epigastric pain that is at baseline for her. She states she was able to eat oatmeal for breakfast this morning. Denies any vomiting. Reports diarrhea that occurs 3-4 times per day and that is normal for her. She denies any oral thrush or diffuse skin lesions. Infect Dis PN-Objective Data - Labs CBC & Chem 7: 08/11/18 05:19 08/11/18 05:19 Labs: Laboratory Results - last 24 hr 08/11/18 08/11/18 05:19 05:19 WBC 8.0 RBC 3.94 Hgb 10.3 L Hct 32.7 L MCV 83.0 MCH 26.1 L MCHC 31.5 L RDW 16.7 H Plt Count 423 H MPV 8.5 L Immature Gran % 0.4 Seg Neutrophils % 59.7 Lymphocytes % 30.2 Monocytes % 6.3 Eosinophils % 2.6 Basophils % 0.8 Neutrophils # 4.8 Lymphocytes # 2.4 Monocytes # 0.5 Eosinophils # 0.2 Basophils # 0.1 Sodium 139 Potassium 3.6 Chloride 103 Carbon Dioxide 27 BUN 7 Creatinine 0.93 Est GFR ( Amer) > 60 Est GFR (Non-Af Amer) > 60 BUN/Creatinine Ratio 8 Glucose 119 H Calculated Osmolality 287 Calcium 9.0 Cultures: Cultures 08/07/18 19:07 Blood Culture - Final Peripheral Venipuncture Klebsiella oxytoca 08/07/18 19:08 Blood Culture - Final Peripheral Venipuncture Klebsiella oxytoca 08/09/18 17:48 Blood Culture - Preliminary Port System Culture is incubating and being continuously monitored for growth. Final report to follow. 08/09/18 17:53 Blood Culture - Preliminary Port System Culture is incubating and being continuously monitored for growth. Final report to follow. Serology 08/07/18 08/07/18 Range/Units 19:14 19:08 Urine Color Yellow (Yellow) Urine Clarity Clear (Clear) Urine pH 6.5 (5.0-8.0) pH Units Ur Specific [place] 1.014 (1.010-1.025) Urine Protein Negative (Neg-Trace) mg/dL Urine Glucose (UA) Normal (Normal) mg/dL Urine Ketones Negative (Negative) mg/dL Urine Blood Negative (Negative) Urine Nitrite Negative (Negative) Urine Bilirubin Negative (Negative) Urine Urobilinogen Normal (Normal) mg/dL Ur Leukocyte Esterase Negative (Negative) Ur Culture Indicated? NO (NO) A. baumannii (PCR) Not Detected (Not Detect) Lindsay albicans (PCR) Not Detected (Not Detect) C. glabrata (PCR) Not Detected (Not Detect) C. krusei (PCR) Not Detected (Not Detect) C. parapsilosis (PCR) Not Detected (Not Detect) C. tropicalis (PCR) Not Detected (Not Detect) Enterobacteriac sp PCR DETECTED A (Not Detect) E. cloacae complex PCR Not Detected (Not Detect) Enterococcus sp PCR Not Detected (Not Detect) E. coli (PCR) Not Detected (Not Detect) H. influenzae (PCR) Not Detected (Not Detect) Klebsiella oxytoca PCR DETECTED A (Not Detect) Klebsiella pneumoniae Not Detected (Not Detect) List. monocytogenes PCR Not Detected (Not Detect) N. meningitidis (PCR) Not Detected (Not Detect) Proteus species (PCR) Not Detected (Not Detect) Serratia marcescens PCR Not Detected (Not Detect) Staphylococcus sp PCR Not Detected (Not Detect) Staph aureus (PCR) Not Detected (Not Detect) mecA-Methicil Res Gene Not Detected (Not Detect) Streptococcus sp PCR Not Detected (Not Detect) Group A Strep DNA Not Detected (Not Detect) Group B Strep (PCR) Not Detected (Not Detect) Strep pneumoniae (PCR) Not Detected (Not Detect) P. aeruginosa (PCR) Not Detected (Not Detect) Kathy/B-Vanco Res Genes Not Detected (Not Detect) KPC (blaKPC) Detect PCR Not Detected (Not Detect) Exam - Constitutional Vitals: Temp Pulse Resp BP Pulse Ox 99.3 F 81 16 154/96 98 08/11/18 08:00 08/11/18 08:00 08/11/18 08:00 08/11/18 08:00 08/11/18 08:00 General appearance: average body habitus, cooperative, no acute distress - Head Head exam: Present: atraumatic, normal inspection, normocephalic - Eye Eye exam: Present: EOMI, normal appearance, PERRL Pupils: Present: normal accommodation - ENT ENT exam: Present: mucous membranes moist - Neck Neck exam: Present: normal inspection - Respiratory Respiratory exam: Present: CTAB. Absent: rales, respiratory distress, rhonchi, wheezes - Cardiovascular Cardiovascular exam: Present: RRR, +S1, +S2 - GI/Abdominal GI/Abdominal exam: Present: normal bowel sounds, soft, tenderness (Epigastric). Absent: distended - Extremities Exam Extremities exam: Present: normal inspection. Absent: joint swelling, pedal edema, tenderness - Neurological Exam Neurological exam: Present: alert, oriented X3, no focal deficits - Psychiatric Psychiatric exam: Present: normal affect, normal mood - Skin Skin exam: Present: dry, intact, normal color, warm - Additional findings Additional findings: A port noted to the right upper chest with transparent dressing clean, dry, and intact. Consult Discharge Plan - Plan Instructions: Cefdinir (By mouth) Referrals: Niecy Albarran [Primary Care Provider] - 09/03/18 10:45 am Prescriptions: Cefdinir [Omnicef] 300 mg PO BID 12 Days #24 capsule - Attending Attestation I examined this patient and my medical decision-making was reviewed with the Resident Physician. I agree with the documented findings, disposition and treatment plan as described except to the extent set forth below.
--- NOTE | 2018-08-11 10:17 | Discharge Summary ---
- NOTES TO OUTPATIENT PROVIDER Notes to Outpatient Provider: Patient with history of gastric bypass, malabsorption, chronic pancreatitis, who is on PRN IVF and zofran through the port, was admitted for abdominal pain and K. oxytoca bacteremia. Unclear etiology with negative CT A/P and urinalysis. Also had mild FELIPE which improved with IV fluid. Repeat culture done on 08/09 was negative for any bacteria. Evaluated by ID and will be discharged home on PO Omnicef 300mg BID till 08/22. Patient was advised to return to the ED if she develops fever/chills, worsening N/V, or abdominal pain. Orders not resulted at time of discharge: Pending orders 08/09/18 17:48 Culture,Blood [BC] Routine Date of Encounter: 08/11/18 Time of Encounter: 07:45 - Discharge Diagnosis (1) Bacteremia Priority: Primary Status: Acute (2) Sepsis Priority: Secondary Status: Acute Qualifiers: Sepsis type: sepsis due to unspecified organism Qualified Code(s): A41.9 - Sepsis, unspecified organism (3) Abdominal pain Priority: Secondary Status: Acute Qualifiers: Abdominal location: right upper quadrant Qualified Code(s): R10.11 - Right upper quadrant pain (4) GERD (gastroesophageal reflux disease) Priority: Secondary Status: Chronic Qualifiers: Esophagitis presence: esophagitis presence not specified Qualified Code(s): K21.9 - Gastro-esophageal reflux disease without esophagitis (5) HLD (hyperlipidemia) Priority: Secondary Status: Chronic Qualifiers: Hyperlipidemia type: pure hypercholesterolemia Qualified Code(s): E78.00 - Pure hypercholesterolemia, unspecified; E78.0 - Pure hypercholesterolemia (6) Chronic pancreatitis Priority: Secondary Status: Acute Qualifiers: Pancreatitis type: unspecified pancreatitis type Qualified Code(s): K86.1 - Other chronic pancreatitis (7) Depression Priority: Secondary Status: Chronic Qualifiers: Depression Type: unspecified Qualified Code(s): F32.9 - Major depressive disorder, single episode, unspecified (8) Hypertensive urgency Priority: Secondary Status: Resolved (9) Hypokalemia Priority: Secondary Status: Resolved (10) DVT prophylaxis Priority: Secondary Status: Acute Hospital course: Ms. Astudillo is a 52 year old female with history of gastric bypass, malabsorption, chronic pancreatitis, who is on PRN IVF and zofran through the port, was admitted for abdominal pain and K. oxytoca bacteremia. Unclear etiology with negative CT A/P and urinalysis. Also had mild FELIPE which improved with IV fluid. Repeat culture done on 08/09 was negative for any bacteria. Evaluated by ID and will be discharged home on PO Omnicef 300mg BID till 08/22. Patient was advised to return to the ED if she develops fever/chills, worsening N/V, or abdominal pain. Discharge discussed with: patient - Time Spent with Patient Total time spent providing and/or coordinating discharge services: 32 mins - Discharge Medications Prescriptions: Cefdinir [Omnicef] 300 mg PO BID 12 Days #24 capsule Home Medications: Tizanidine HCl [Zanaflex] 4 mg PO BID 01/15/16 [History] Venlafaxine XR (24 HR) [Effexor Xr] 75 mg PO DAILY 07/25/17 [History] BuPROPion XL (24 HR) [Wellbutrin Xl] 300 mg PO DAILY 08/20/17 [History] Cholecalciferol (D-3) [Vitamin D] 5,000 unit PO DAILY 09/08/17 [History] Cyanocobalamin (B-12) [Vitamin B12] 1,000 mcg IM QMONTH 09/08/17 [History] Loratadine [Allergy Relief] 10 mg PO DAILY 12/11/17 [History] Lipase/Protease/Amylase [Creon Dr 6,000 Units Capsule] 1 cap PO QIDAC 12/28/17 [History] Montelukast [Singulair] 10 mg PO DAILY 03/08/18 [History] Niacin [Plain Niacin] 500 mg PO DAILY 03/08/18 [History] Ranitidine HCl [Acid Dev Ops Engineer] 150 mg PO BID 03/08/18 [History] Ondansetron [Zofran] 4 mg PO Q8H PRN 10 Days #20 tablet 05/13/18 [Rx] Promethazine [Phenergan] 12.5 mg PO Q8HR PRN 08/03/18 [History] Pantoprazole Sodium 40 mg PO DAILY 08/07/18 [History] Cefdinir [Omnicef] 300 mg PO BID 12 Days #24 capsule 08/11/18 [Rx] Allergies/Adverse Reactions: Allergy/AdvReac Type Severity Reaction Status Date / Time butalbital [From Fioricet] Allergy Hives Verified 06/01/18 12:46 caffeine [From Fioricet] Allergy Hives Verified 06/01/18 12:46 [place] Allergy Hives Verified 06/01/18 12:46 phenytoin [From Dilantin] Allergy Hives Verified 06/01/18 12:46 methocarbamol [From Robaxin] AdvReac Vomiting Verified 06/01/18 12:46 Date of admission: 08/07/18 22:46 Primary care physician: Niecy Albarran Consults: 08/07/18 22:16 Consult to Physical Therapy [CONS] Routine Comment: Evaluate, develop and implement POC Reason for Consult: PT eval Does patient have active BEDREST order?: No Is patient medically & hemodynamically stable?: Yes 08/07/18 22:17 Consult to Infectious Diseases [CONS] Routine Consulting Provider: Infectious Disease Agata Reason for Consult: bacteremia Call Completed: No - Constitutional Vitals: Temp Pulse Resp BP Pulse Ox 99.3 F 81 16 154/96 98 08/11/18 08:00 08/11/18 08:00 08/11/18 08:00 08/11/18 08:00 08/11/18 08:00 Exam: GEN: NAD Chest: R port site appears clean, no erythema, fluctuance, or localized swelling. No crepitus. L chest scar from the previous port also appears to be well-healed. CVS:RRR. S1, S2, No m/r/g RESP: CTAB ABD: Soft, non-tender, no rebound/rigidity/guarding NEURO: Nonfocal, CN II-XII intact, No focal motor or sensory deficits Psych: Cooperative, Not anxious or depressed - Patient Status Disposition: Home, Self-Care Condition: Good Functional capacity at discharge: independent ambulation Overall status at discharge: patient is progressing back to baseline - Discharge Instructions Follow Up With: Niecy Albarran [Primary Care Provider] - - Diet and Activity Activity: resume usual activities as tolerated Diet: advance to your usual diet
[2018-08-11 10:53] VITALS: BP 131/83
--- NOTE | 2018-08-11 17:03 | Physician Discharge Referral ---
Home Health/Hosp Referral Info Transfer to: Home Health - Diagnosis (1) Bacteremia Priority: Primary Status: Acute (2) Sepsis Priority: Secondary Status: Acute (3) Abdominal pain Priority: Secondary Status: Acute (4) GERD (gastroesophageal reflux disease) Priority: Secondary Status: Chronic (5) HLD (hyperlipidemia) Priority: Secondary Status: Chronic (6) Chronic pancreatitis Priority: Secondary Status: Acute (7) Depression Priority: Secondary Status: Chronic (8) Hypertensive urgency Priority: Secondary Status: Resolved (9) Hypokalemia Status: Resolved (10) DVT prophylaxis Priority: Secondary Status: Acute - Respiratory Orders Smoking Cessation: Smoking cessation has been advised. For more information, call the [place] Tobacco Quit Line at 0-537-MDPU-NOW. - Services Needed Following services are medically necessary services: Nursing - Transfer Medications Prescriptions: Cefdinir [Omnicef] 300 mg PO BID 12 Days #24 capsule Home Medications: Tizanidine HCl [Zanaflex] 4 mg PO BID 01/15/16 [History] Venlafaxine XR (24 HR) [Effexor Xr] 75 mg PO DAILY 07/25/17 [History] BuPROPion XL (24 HR) [Wellbutrin Xl] 300 mg PO DAILY 08/20/17 [History] Cholecalciferol (D-3) [Vitamin D] 5,000 unit PO DAILY 09/08/17 [History] Cyanocobalamin (B-12) [Vitamin B12] 1,000 mcg IM QMONTH 09/08/17 [History] Loratadine [Allergy Relief] 10 mg PO DAILY 12/11/17 [History] Lipase/Protease/Amylase [Creon Dr 6,000 Units Capsule] 1 cap PO QIDAC 12/28/17 [History] Montelukast [Singulair] 10 mg PO DAILY 03/08/18 [History] Niacin [Plain Niacin] 500 mg PO DAILY 03/08/18 [History] Ranitidine HCl [Acid Mat Packer] 150 mg PO BID 03/08/18 [History] Ondansetron [Zofran] 4 mg PO Q8H PRN 10 Days #20 tablet 05/13/18 [Rx] Promethazine [Phenergan] 12.5 mg PO Q8HR PRN 08/03/18 [History] Pantoprazole Sodium 40 mg PO DAILY 08/07/18 [History] Cefdinir [Omnicef] 300 mg PO BID 12 Days #24 capsule 08/11/18 [Rx] Allergies/Adverse Reactions: Allergy/AdvReac Type Severity Reaction Status Date / Time butalbital [From Fioricet] Allergy Hives Verified 06/01/18 12:46 caffeine [From Fioricet] Allergy Hives Verified 06/01/18 12:46 [place] Allergy Hives Verified 06/01/18 12:46 phenytoin [From Dilantin] Allergy Hives Verified 06/01/18 12:46 methocarbamol [From Robaxin] AdvReac Vomiting Verified 06/01/18 12:46 Certification: Further, I certify that my clinical findings support that this patient is homebound (i.e. absences from home require considerable and taxing effort and are for medical reasons or congregation services or infrequently or short duration when for other reasons) because: Homebound Reason: Patient requires assistance of a person or device to safely leave home Attestation: My signature below is to certify that this patient is under my care and that I, or nurse practitioner, or a physician's assistant professor of geography working with me, has a [id number] encounter with this patient.
[2018-08-12] MEDS ORDERED: cefTRIAXone 2,000 MG in Water for inj. (sterile) 20 ML 20 ML IVP SCH (09:00)
== END 2018-08-11 18:13 | disposition home or self-care (01) | DRG 720 ==
LOC: EMEROOARM 17:49 → SUATTDRO 22:46 → 2ANU 22:46
PROVIDERS: ADMIT Internal Medicine; ATTEND Internal Medicine

== ENCOUNTER 2019-01-18 15:50 | Inpatient (IN) ==
--- NOTE | 2019-01-18 16:31 | Emergency Department Note ---
Disposition Clinical Impression: Orthostatic hypotension, Near syncope Disposition: Admitted As Inpatient Condition: Fair Referrals: Niecy Albarran CNP [Primary Care Provider] - Forms: ED Satisfaction Letter General Adult HPI - General Chief complaint: ED Dizziness Stated complaint: lightheaded, dizzy, Time Seen by Provider: 01/18/19 16:12 Source: patient, family Limitations: no limitations Nursing Notes Reviewed: Yes Vital Signs Reviewed: Yes - History of Present Illness Pain Scale: 0 - Related Data Home Medications Medication Instructions Recorded Confirmed Tizanidine HCl [Zanaflex] 4 mg PO BID 01/15/16 01/01/19 Venlafaxine XR (24 HR) [Effexor Xr] 75 mg PO DAILY 07/25/17 01/01/19 BuPROPion XL (24 HR) [Wellbutrin 300 mg PO DAILY 08/20/17 01/01/19 Xl] Cyanocobalamin (B-12) [Vitamin B12] 1,000 mcg IM QMONTH 09/08/17 01/01/19 Loratadine [Allergy Relief] 10 mg PO DAILY 12/11/17 01/01/19 Lipase/Protease/Amylase [Creon Dr 1 cap PO QIDAC 12/28/17 01/01/19 6,000 Units Capsule] Montelukast [Singulair] 10 mg PO QPM 03/08/18 01/01/19 Niacin [Plain Niacin] 500 mg PO DAILY 03/08/18 01/01/19 Ranitidine HCl [Acid Aircraft Designer] 150 mg PO BID 03/08/18 01/01/19 Pantoprazole Sodium 40 mg PO BID 08/07/18 01/01/19 Furosemide [Lasix] 20 mg PO DAILY 01/01/19 01/01/19 Ondansetron [Zofran] 8 mg IV Q8HR PRN 01/01/19 01/01/19 Potassium Chloride [Klor-Con 10] 10 meq PO BID 01/01/19 01/01/19 Sucralfate [Carafate] 1 gm PO QIDAC 01/01/19 01/01/19 risperiDONE [RisperDAL] 1 mg PO HS 01/01/19 01/01/19 Previous Rx's Medication Instructions Recorded amLODIPine [Norvasc] 5 mg PO DAILY 30 Days #30 tablet 01/04/19 Allergies Allergy/AdvReac Type Severity Reaction Status Date / Time butalbital [From Fioricet] Allergy Hives Verified 06/01/18 12:46 caffeine [From Fioricet] Allergy Hives Verified 06/01/18 12:46 [place] Allergy Hives Verified 06/01/18 12:46 phenytoin [From Dilantin] Allergy Hives Verified 06/01/18 12:46 methocarbamol [From Robaxin] AdvReac Vomiting Verified 06/01/18 12:46 Past Medical History - Past Medical History Medical history: Reports: asthma, COPD, coronary artery disease, CVA, GERD, hyperlipidemia, hypertension, myocardial infarction, renal disease, seizures, TIA Surgical history: Reports: cholecystectomy, hysterectomy, orthopedic, other Psychiatric history: Reports: anxiety, bipolar, depression FISHER DIVER NET history: Reports: no [employer] DIVER NET history - Social History Smoking Status: Never smoker Smokeless Tobacco Status: No Alcohol use: Reports: none Drug use: Reports: none Physical Exam - General Limitations: no limitations General appearance: alert, in no apparent distress Course Vital Signs Temperature 97.9 F 01/18/19 16:04 Pulse Rate 76 01/18/19 16:04 Respiratory Rate 18 01/18/19 16:04 Blood Pressure 61/39 01/18/19 16:04 O2 Sat by Pulse Oximetry 96 01/18/19 16:04 Temperature 97.9 F 01/18/19 16:04 Pulse Rate 55 01/18/19 17:36 Respiratory Rate 18 01/18/19 16:04 Blood Pressure 119/85 01/18/19 17:36 O2 Sat by Pulse Oximetry 100 01/18/19 17:36 Oxygen Delivery Oxygen Delivery Room Air Medical Decision Making - [facility] Narrative Medical decision making narrative: Chest X-Ray 01/18/19 16:12 IMPRESSION: No acute cardiopulmonary disease. D/ / 01/18/2019 16:35:49 Moisés Clements MD / earnold Interpreting Provider: Moisés Clements MD 1817 hrs. colon with the near syncopal episode the low blood pressure I think she needs to come into the hospital for further management and evaluation. She is in agreement with plan. Page and hospitalist. - Lab Data Result diagrams: 01/18/19 16:42 01/18/19 16:42 Lab Results 01/18/19 01/18/19 Range/Units 16:42 16:42 WBC 8.6 (4.3-11.1) K/mcL RBC 4.59 (3.82-4.97) M/mcL Hgb 11.1 L (11.5-15.4) g/dL Hct 35.8 (35.3-44.9) % MCV 78.0 L (83.0-100.0) fL MCH 24.2 L (28.0-33.3) pg MCHC 31.0 L (31.6-35.5) g/dL RDW 18.1 H (11.5-14.5) % Plt Count 551 H (140-400) K/mcL MPV 8.5 L (9.4-12.4) fL Immature Gran % 0.3 (0-4) % Seg Neutrophils % 74.3 % Lymphocytes % 18.4 % Monocytes % 5.2 % Eosinophils % 1.2 % Basophils % 0.6 % Neutrophils # 6.4 (1.6-8.9) K/mcL Lymphocytes # 1.6 (0.6-4.6) K/mcL Monocytes # 0.5 (0.0-1.3) K/mcL Eosinophils # 0.1 (0.0-0.6) K/mcL Basophils # 0.1 (0.0-0.2) K/mcL Sodium 136 (136-145) mEq/L Potassium 5.1 (3.5-5.1) mEq/L Chloride 96 L (98-107) mEq/L Carbon Dioxide 28 (23-29) mEq/L BUN 15 (6-20) mg/dL Creatinine 1.62 H (0.60-1.20) mg/dL Est GFR ( Amer) 41 L (> 60) Est GFR (Non-Af Amer) 34 L (> 60) BUN/Creatinine Ratio 9 (6-26) Glucose 123 H (70-105) mg/dL Calculated Osmolality 284 (280-300) Calcium 9.2 (8.6-10.3) mg/dL Troponin I < 0.03 (< 0.04) ng/mL TSH 2.714 (0.340-5.600) mcIU/mL Attestation Statement - Attestation Attestation: This documentation is done with the assistance of Dragon dictation. Despite efforts made to ensure accuracy, there may be inaccuracies in mortgage sales manager or spelling and typographical errors. Patient I examined this patient and my medical decision-making was reviewed with the Resident Physician. I agree with the documented findings, disposition and treatment plan as described except to the extent set forth below. Patient seen and evaluated on arrival by Dr. Hans Sharma myself thinks agree with his evaluation and treatment plan I supervised the care the patient outstay. Patient presents today with initial hypotension she has had a history of that in the past. Initial blood pressures in the 50s else 124 she says this happens to her depending on position. She is has been feeling so weak she says she is accepted to crawl to the bathroom. When checked her old records order labs give her fluids and reassess most likely she will need admission
[2019-01-18] MEDS ORDERED: 0.9 % Sodium Chloride 1,000 ML IVC ONE ×2 (16:35→21:05)
[2019-01-18 16:50] LABS: Basophils # 0.1 K/mcL (0.0-0.2); Basophils % 0.6 %; Eosinophils # 0.1 K/mcL (0.0-0.6); Eosinophils % 1.2 %; Hematocrit 35.8 % (35.3-44.9); Hemoglobin 11.1 g/dL (11.5-15.4); Immature Granulocytes % 0.3 % (0-4); Lymphocytes # 1.6 K/mcL (0.6-4.6); Lymphocytes % 18.4 %; Mean Corpuscular Hemoglobin 24.2 pg (28.0-33.3); Mean Platelet Volume 8.5 fL (9.4-12.4); Monocytes # 0.5 K/mcL (0.0-1.3); Monocytes % 5.2 %; Neutrophils # 6.4 K/mcL (1.6-8.9); Platelet Count 551 K/mcL (140-400); Red Blood Count 4.59 M/mcL (3.82-4.97); Red Cell Distribution Width 18.1 % (11.5-14.5); Segmented Neutrophils % 74.3 %
[2019-01-18 17:11] LABS: BUN/Creatinine Ratio 9 (6-26); Blood Urea Nitrogen 15 mg/dL (6-20); Calcium 9.2 mg/dL (8.6-10.3); Carbon Dioxide 28 mEq/L (23-29); Chloride 96 mEq/L (98-107); Glucose 123 mg/dL (70-105); Osmolality,Calculated 284 (280-300); Potassium 5.1 mEq/L (3.5-5.1); Sodium 136 mEq/L (136-145); eGFR For Non-African Americans 34 (> 60)
[2019-01-18 17:12] LABS: Troponin I < 0.03 ng/mL (< 0.04)
[2019-01-18 17:26] LABS: Thyroid Stimulating Hormone 2.714 mcIU/mL (0.340-5.600)
--- NOTE | 2019-01-18 17:42 | Emergency Department Note ---
Disposition Clinical Impression: Orthostatic hypotension, Near syncope Disposition: Admitted As Inpatient Condition: Fair Time of Disposition: 19:30 General Adult HPI - General Chief complaint: ED Dizziness Stated complaint: lightheaded, dizzy, Time Seen by Provider: 01/18/19 16:12 Source: patient, family Limitations: no limitations Nursing Notes Reviewed: Yes Vital Signs Reviewed: Yes - History of Present Illness HPI Narrative: 53-year-old female past medical history of CVA, [place], stage III renal disease pre senting for a 3 day history of orthostatic intolerance with presyncopal episodes upon standing. Patient states that she has had to crawl to the bathroom due to feeling lightheaded and dizzy when standing up. Patient states that when trying to rise out of a chair that she stumbled forward today falling into her refrigerator. Patient denies striking her head or any other trauma at that time. Patient states she has been worked up for similar presentations in the past with no pathology encountered. Patient admits to lightheadedness dizziness and neck pain, denies headache, back pain, chest pain or shortness of breath, abdominal pain nausea vomiting diarrhea constipation hematuria or hematochezia. No numbness or paresthesias. Onset (ago): day(s) Pain Scale: 0 - Related Data Home Medications Medication Instructions Recorded Confirmed Tizanidine HCl [Zanaflex] 4 mg PO BID 01/15/16 01/18/19 Venlafaxine XR (24 HR) [Effexor Xr] 75 mg PO DAILY 07/25/17 01/18/19 BuPROPion XL (24 HR) [Wellbutrin 300 mg PO DAILY 08/20/17 01/18/19 Xl] Cyanocobalamin (B-12) [Vitamin B12] 1,000 mcg IM QMONTH 09/08/17 01/18/19 Loratadine [Allergy Relief] 10 mg PO DAILY 12/11/17 01/18/19 Lipase/Protease/Amylase [Sivakumar Dr 1 cap PO QIDAC 12/28/17 01/18/19 6,000 Units Capsule] Montelukast [Singulair] 10 mg PO QPM 03/08/18 01/18/19 Niacin [Plain Niacin] 500 mg PO DAILY 03/08/18 01/18/19 Ranitidine HCl [Acid Senior Engineering Tech] 150 mg PO BID 03/08/18 01/18/19 Pantoprazole Sodium 40 mg PO BID 08/07/18 01/18/19 Furosemide [Lasix] 20 mg PO DAILY 01/01/19 01/18/19 Ondansetron [Zofran] 8 mg IV Q8HR PRN 01/01/19 01/18/19 Potassium Chloride [Klor-Con 10] 10 meq PO BID 01/01/19 01/18/19 Sucralfate [Carafate] 1 gm PO QIDAC 01/01/19 01/18/19 risperiDONE [RisperDAL] 1 mg PO HS 01/01/19 01/18/19 Previous Rx's Medication Instructions Recorded amLODIPine [Norvasc] 5 mg PO DAILY 30 Days #30 tablet 01/04/19 Allergies Allergy/AdvReac Type Severity Reaction Status Date / Time butalbital [From Fioricet] Allergy Hives Verified 06/01/18 12:46 caffeine [From Fioricet] Allergy Hives Verified 06/01/18 12:46 [place] Allergy Hives Verified 06/01/18 12:46 phenytoin [From Dilantin] Allergy Hives Verified 06/01/18 12:46 methocarbamol [From Robaxin] AdvReac Vomiting Verified 06/01/18 12:46 All systems ED: reviewed and negative except as stated. Review of Systems: As Per HPI Constitutional: Denies: fever, chills Cardiovascular: Denies: chest pain Respiratory: Denies: dyspnea Gastrointestinal: Denies: abdominal pain, nausea, vomiting, diarrhea, hematemesis, hematochezia Genitourinary: Denies: hematuria Musculoskeletal: Reports: neck pain. Denies: back pain Neurological: Reports: headache, weakness. Denies: numbness, paresthesias Past Medical History - Past Medical History Medical history: Reports: asthma, COPD, coronary artery disease, CVA, GERD, hyperlipidemia, hypertension, myocardial infarction, renal disease, seizures, T [place] Surgical history: Reports: cholecystectomy, hysterectomy, orthopedic, other Psychiatric history: Reports: anxiety, bipolar, depression HOOF AND SHOE INSPECTOR history: Reports: no HOOF AND SHOE INSPECTOR history - Social History Smoking Status: Never smoker Smokeless Tobacco Status: No Alcohol use: Reports: none Drug use: Reports: none Physical Exam - General Limitations: no limitations General appearance: alert, in no apparent distress - Head Head exam: atraumatic, normocephalic, normal inspection - Eye Eye exam: Present: normal appearance, PERRL, EOMI. Absent: scleral icterus - Neck Neck exam: Present: normal inspection, trachea midline. Absent: lymphadenopathy - Chest Chest inspection: Present: normal inspection, symmetric chest wall rise - Respiratory Respiratory exam: Present: normal lung sounds bilaterally. Absent: respiratory distress, wheezes, stridor, accessory muscle use, prolonged expiratory phase - Cardiovascular Cardiovascular exam: Present: regular rate, normal rhythm, normal heart sounds, +S1, +S2. Absent: systolic murmur, diastolic murmur, +S3, +S4 - Abdominal Exam Abdominal exam: Present: soft, Non-Tender, normal bowel sounds. Absent: dis tention, guarding, rebound, rigidity, organomegaly - Neurological Exam Neurological exam: Present: alert, oriented X3 - Psychiatric Psychiatric exam: Present: normal affect, normal mood - Skin Skin exam: Present: warm, dry, intact, normal color. Absent: rash, cyanosis, diaphoresis, erythema, pallor, mottled Course Course Narrative: Syncopal workup CBC, BMP, chest x-ray, troponin, TSH Vital Signs Temperature 97.9 F 01/18/19 16:04 Pulse Rate 76 01/18/19 16:04 Respiratory Rate 18 01/18/19 16:04 Blood Pressure 61/39 01/18/19 16:04 O2 Sat by Pulse Oximetry 96 01/18/19 16:04 Temperature 97.9 F 01/18/19 16:04 Pulse Rate 66 01/18/19 19:26 Respiratory Rate 18 01/18/19 19:26 Blood Pressure 111/77 01/18/19 19:26 O2 Sat by Pulse Oximetry 100 01/18/19 19:26 Oxygen Delivery Oxygen Delivery Room Air Medical Decision Making - [facility] Narrative Medical decision making narrative: Laboratory and imaging results are negative for acute pathology Patient admitted for hospitalist medicine service for further evaluation and management of orthostatic intolerance with presyncopal episode. - Lab Data Lab results reviewed: Yes I reviewed the patient's lab results. Result diagrams: 01/18/19 16:42 01/18/19 16:42 Lab Results 01/18/19 01/18/19 Range/Units 16:42 16:42 WBC 8.6 (4.3-11.1) K/mcL RBC 4.59 (3.82-4.97) M/mcL Hgb 11.1 L (11.5-15.4) g/dL Hct 35.8 (35.3-44.9) % MCV 78.0 L (83.0-100.0) fL MCH 24.2 L (28.0-33.3) pg MCHC 31.0 L (31.6-35.5) g/dL RDW 18.1 H (11.5-14.5) % Plt Count 551 H (140-400) K/mcL MPV 8.5 L (9.4-12.4) fL Immature Gran % 0.3 (0-4) % Seg Neutrophils % 74.3 % Lymphocytes % 18.4 % Monocytes % 5.2 % Eosinophils % 1.2 % Basophils % 0.6 % Neutrophils # 6.4 (1.6-8.9) K/mcL Lymphocytes # 1.6 (0.6-4.6) K/mcL Monocytes # 0.5 (0.0-1.3) K/mcL Eosinophils # 0.1 (0.0-0.6) K/mcL Basophils # 0.1 (0.0-0.2) K/mcL Sodium 136 (136-145) mEq/L Potassium 5.1 (3.5-5.1) mEq/L Chloride 96 L (98-107) mEq/L Carbon Dioxide 28 (23-29) mEq/L BUN 15 (6-20) mg/dL Creatinine 1.62 H (0.60-1.20) mg/dL Est GFR ( Amer) 41 L (> 60) Est GFR (Non-Af Amer) 34 L (> 60) BUN/Creatinine Ratio 9 (6-26) Glucose 123 H (70-105) mg/dL Calculated Osmolality 284 (280-300) Calcium 9.2 (8.6-10.3) mg/dL Troponin I < 0.03 (< 0.04) ng/mL TSH 2.714 (0.340-5.600) mcIU/mL - Radiology Data Radiology results reviewed: Yes I reviewed the patient's radiology results. Chest X-Ray 01/18/19 16:12 IMPRESSION: No acute cardiopulmonary disease. D/ / 01/18/2019 16:35:49 Moisés Clements MD / marilynn Interpreting Provider: Moisés Clements MD - EKG Data EKG #1 EKG attestation: Yes I reviewed and interpreted this EKG. EKG results narrative: Patient EKG shows a sinus rhythm ventricular rate of 60 bpm, MD interval 13 ms, QS duration of 80 ms, QTC/QTc interval 447/447 ms respectively. There are no significant ST segment elevations, depressions, pathologic Q waves, abnormal T- wave inversions, or any other signs of acute ischemic change. This EKG p erformed today is generally consistent with prior EKG performed on 01/01/2019.
[2019-01-18] MEDS ORDERED: Naloxone 0.4 MG/ML INJ IVP PRN (20:44)
[2019-01-18] MEDS ORDERED: tiZANidine 4 MG TABLET PO PRN (20:48)
--- NOTE | 2019-01-18 20:56 | Internal Med History&Physical ---
<Tiffany Ellington - Last Filed: 01/18/19 22:42> Date of Encounter: 01/18/19 Time of Encounter: 20:30 Internal Medicine - H&P: HPI Chief complaint: Syncope Admitted From: Emergency Dept History of present illness: Ms. Astudillo is a 53 year old female with history of chronic pancreatitis, malabsorption syndrome, CAD/CO, HTN, HLD, CKD, COPD, CVA, GERD, seizure, bipolar, anxiety, depression. Surgical history of gastric bypass and port for infusions. Patient presents for syncope. Patient states that a week ago, she started p assing out every time she stood up. Patient states she could feel when she would pass out because she would start feeling weak, her hands would shake, and then her vision would go black. Patient states she passed out 6 times that day. She would be out for 1 minute. Patient states she would know everything thats going on while shes passed out. Patient states she never hit her head or injured any other part of her body with falls because theres always someone there to catch her before she hit anything hard. Because this happened every time she stood up, patient states she had to crawl to the bathroom. Associated symptoms of fatigue, sleeping a lot, generalized weakness, dyspnea on exertion. Admits abdominal pain secondary to chronic pancreatitis, unchanged from baseline. Denies anorexia, weight loss, nausea/vomiting, chest pain, confusion, fever, urinary changes, bowel changes, recent illness. Patient states this continued daily and worsened today. States that usually if shes sitting, shes fine. But today, she passed out from her chair. She passed out 4 times today. Patient states she couldnt take it anymore and decided to go to hospital. Patient states shes had similar episodes once or twice before. Last syncope was 6 months ago and states she thinks it was from stress. Patient states shes never had workup for syncope. Patient is prescribed Norvasc for HTN but states she doesnt take it because she knows her blood pressure is usually on the low side. Patient was started on Lasix 2 weeks ago for swelling, shes been taking this daily. Denies any recent steroid use. Patient states she doesnt drink water, she drinks Gatorade instead. Lately shes been drinking one 28-oz bottle of Gatorade daily. 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 Patient states she was told it was inoperable. Past Med Surg Social Fam HX - Past Medical History Medical history: asthma, COPD, coronary artery disease, CVA, GERD, hyperlipidem ia, hypertension, myocardial infarction, renal disease, seizures, TIA Additional medical history: carotid stenosis, DLD, chronic pancreatitis Psychiatric history: anxiety, bipolar, depression - Past Surgical History Surgical History: cholecystectomy, hysterectomy, orthopedic, other Additional surgical history: tonsillectomy, adenoidectomy, [place], Back surgery, neck surgery, adbdominoplasty, gastric bypass - Social History Smoking Status: Never smoker Smokeless Tobacco Status: No Alcohol use: none Drug use: none - Family History Mother Family Member Ethnicity: Non- Living Status: Hx Family Cardiac Disorders: No Hx Family Respiratory Disorders: No Hx Family Cancer: Yes (Esophageal) Hx Family GI Disorders: No Hx Family Endocrine Disorder: No Hx Family Neuromuscular Disorders: No Hx Family Neurologic Disorders: No Hx Family HEENT Disorders: No Hx Family Autoimmune Disorders: No Father Family Member Ethnicity: Non- Living Status: Hx Family Cancer: Yes (Prostate) Hx Family Neurologic Disorders: Yes (Alzheimer's disease) Brother Family Member Ethnicity: Non- Living Status: Still Living Hx Family Neurologic Disorders: Yes (Bipolar) Sister Adopted: No Family Member Ethnicity: Non- Living Status: Hx Family Cardiac Disorders: Yes Hx Family Respiratory Disorders: No Hx Family Cancer: Yes Hx Family GI Disorders: No Hx Family Endocrine Disorder: No Hx Family Neuromuscular Disorders: No Hx Family Neurologic Disorders: No Hx Family HEENT Disorders: No Hx Family Autoimmune Disorders: No Internal Medicine - H&P: Meds Tizanidine HCl [Zanaflex] 4 mg PO BID 01/15/16 [History] Venlafaxine XR (24 HR) [Effexor Xr] 75 mg PO DAILY 07/25/17 [History] BuPROPion XL (24 HR) [Wellbutrin Xl] 300 mg PO DAILY 08/20/17 [History] Cyanocobalamin (B-12) [Vitamin B12] 1,000 mcg IM QMONTH 09/08/17 [History] Loratadine [Allergy Relief] 10 mg PO DAILY 12/11/17 [History] Lipase/Protease/Amylase [Creon Dr 6,000 Units Capsule] 1 cap PO QIDAC 12/28/17 [History] Montelukast [Singulair] 10 mg PO QPM 03/08/18 [History] Niacin [Plain Niacin] 500 mg PO DAILY 03/08/18 [History] Ranitidine HCl [Acid Track Service Worker] 150 mg PO BID 03/08/18 [History] Pantoprazole Sodium 40 mg PO BID 08/07/18 [History] Furosemide [Lasix] 20 mg PO DAILY 01/01/19 [History] Ondansetron [Zofran] 8 mg IV Q8HR PRN 01/01/19 [History] Potassium Chloride [Klor-Con 10] 10 meq PO BID 01/01/19 [History] Sucralfate [Carafate] 1 gm PO QIDAC 01/01/19 [History] risperiDONE [RisperDAL] 1 mg PO HS 01/01/19 [History] amLODIPine [Norvasc] 5 mg PO DAILY 30 Days #30 tablet 01/04/19 [Rx] Allergy/AdvReac Type Severity Reaction Status Date / Time butalbital [From Fioricet] Allergy Hives Verified 06/01/18 12:46 caffeine [From Fioricet] Allergy Hives Verified 06/01/18 12:46 [place] Allergy Hives Verified 06/01/18 12:46 phenytoin [From Dilantin] Allergy Hives Verified 06/01/18 12:46 methocarbamol [From Robaxin] AdvReac Vomiting Verified 06/01/18 12:46 All Systems PM: A 10-system review of systems was performed and is negative for pertinent findings except as documented above in the HPI. - Constitutional Constitutional: fatigue, weakness, no anorexia, no fever(s) - EENT Eyes: no change in vision Nose, mouth and throat: no dysphagia - Cardiovascular Cardiovascular ROS IM: no chest pain - Respiratory Respiratory: dyspnea on exertion - Gastrointestinal Gastrointestinal: abdominal pain, no change in bowel habits - Genitourinary Genitourinary: no dysuria - Musculoskeletal Musculoskeletal ROS IM: no arthralgias - Integumentary Integumentary IM: no rash - Neurological Neurological ROS: no focal weakness - Psychiatric Psychiatric: no hallucinations - Endocrine Endocrine IM: no cold intolerance - Hematologic/Lymphatic Hematologic/Lymphatic: no easy bleeding - Allergic/Immunologic Allergic/Immunologic: no uticaria - Constitutional Vitals: Temp Pulse Resp BP Pulse Ox 98.5 F 73 16 91/60 96 01/18/19 20:15 01/18/19 20:15 01/18/19 20:15 01/18/19 20:15 01/18/19 20:15 General appearance: Present: cooperative, obese, answers questions appropriately Exam: no acute distress - Head Head exam: Present: atraumatic, normal inspection, normocephalic - Eye Eye exam: Present: EOMI, normal appearance, PERRL, sclera anicteric - ENT ENT exam: Present: mucous membranes moist, normal oropharynx - Neck Neck exam general surgery: Present: normal inspection - Respiratory Respiratory exam: Present: CTAB. Absent: respiratory distress, tachypnea - Cardiovascular Cardiovascular exam: Present: RRR, +S1, +S2. Absent: bradycardia, systolic murmur, tachycardia - GI/Abdominal GI/Abdominal exam: Present: normal bowel sounds, soft, tenderness (epigastric), no peritoneal signs - Extremities Exam Extremities exam: Present: normal inspection, warm. Absent: cyanotic, pedal edema, tenderness - Neurological Exam Neurological exam: Present: alert, CN II-XII intact, oriented X3, no focal deficits, strengths equal and symetr throughout. Absent: motor sensory deficit, pronater drift, facial droop, speech deficit Additional comments: normal [id number] test bilaterally Internal Med - H&P Results - Labs CBC & Chem 7: 01/18/19 16:42 01/18/19 21:16 Labs: Short CBC 01/18/19 Range/Units 16:42 WBC 8.6 (4.3-11.1) K/mcL Hgb 11.1 L (11.5-15.4) g/dL Hct 35.8 (35.3-44.9) % Plt Count 551 H (140-400) K/mcL Neutrophils # 6.4 (1.6-8.9) K/mcL BMP 01/18/19 16:42 Sodium 136 Potassium 5.1 Chloride 96 L Carbon Dioxide 28 BUN 15 Creatinine 1.62 H Glucose 123 H Calcium 9.2 Cardiac Enzymes 01/18/19 Range/Units 16:42 Troponin I < 0.03 (< 0.04) ng/mL - Impressions ITS Impressions Chest X-Ray 01/18/19 16:12 IMPRESSION: No acute cardiopulmonary disease. D/ / 01/18/2019 16:35:49 Moisés Clements MD / [facility] Interpreting Provider: Moisés Clements MD - Assessment and Plan (1) Orthostatic hypotension Current Visit: Yes Status: Acute Assessment and plan: Orthostatic hypotension and syncope On presentation, BP of 61/39 After 1L IVF, BP improved to 91/60 Labwork unremarkable Suspect multifactorial secondary to malabsorption, fluid depletion, and possibly carotid artery stenosis IV hydration Check carotid duplex (2) Syncope Current Visit: No Status: Acute Assessment and plan: Suspect secondary to orthostatic hypotension See plan above Qualifiers: Syncope type: unspecified Qualified Code(s): R55 - Syncope and collapse (3) FELIPE (acute kidney injury) Current Visit: Yes Status: Acute Assessment and plan: Cr of 1.62 2 weeks ago, Cr of 0.97 Likely pre-renal IVF Trend Cr Monitor I&O (4) Malabsorption syndrome Current Visit: No Status: Chronic Assessment and plan: History of gastric bypass and malabsorption syndrome IVF Home meds Qualifiers: Intestinal malabsorption type: unspecified Qualified Code(s): K90.9 - Intestinal malabsorption, unspecified (5) Chronic pancreatitis Current Visit: No Status: Chronic Assessment and plan: History of chronic pancreatitis Home meds Qualifiers: Pancreatitis type: unspecified pancreatitis type Qualified Code(s): K86.1 - Other chronic pancreatitis (6) Hypertension Current Visit: No Status: Chronic Assessment and plan: Hold home antihypertensives Qualifiers: Hypertension type: unspecified Qualified Code(s): I10 - Essential (primary) hypertension (7) Anxiety and depression Current Visit: No Status: Chronic Assessment and plan: Home meds (8) DVT prophylaxis Current Visit: No Status: Acute Assessment and plan: Heparin SQ (9) CHF (congestive heart failure) Current Visit: Yes Status: Chronic Assessment and plan: Echo on 12/22/18 shows LVEF 65%. Mild LV diastolic dysfunction. Normal RV functi on. Moderate pHTN, 50mmHg Hold home Lasix Qualifiers: Heart failure type: diastolic Heart failure chronicity: chronic Qualified Code(s): I50.32 - Chronic diastolic (congestive) heart failure - Time Spent With Patient Total time spent is greater than 50% in coordination of care (as documented) at patient's floor/unit and/or counseling patient: Wagner Santo - Last Filed: 01/18/19 23:22> Date of Encounter: 01/18/19 All Systems PM: A 10-system review of systems was performed and is negative for pertinent findings except as documented above in the HPI. - Constitutional Vitals: Temp Pulse Resp BP Pulse Ox 98.5 F 55 16 105/67 98 01/18/19 22:56 01/18/19 22:56 01/18/19 22:56 01/18/19 22:56 01/18/19 22:56 Internal Med - H&P Results - Labs CBC & Chem 7: 01/18/19 16:42 01/18/19 21:16 Labs: Short CBC 01/18/19 Range/Units 16:42 WBC 8.6 (4.3-11.1) K/mcL Hgb 11.1 L (11.5-15.4) g/dL Hct 35.8 (35.3-44.9) % Plt Count 551 H (140-400) K/mcL Neutrophils # 6.4 (1.6-8.9) K/mcL BMP 01/18/19 01/18/19 16:42 21:16 Sodium 136 134 L Potassium 5.1 4.5 Chloride 96 L 102 Carbon Dioxide 28 26 BUN 15 15 Creatinine 1.62 H 1.27 H Glucose 123 H 131 H Calcium 9.2 8.7 Cardiac Enzymes 01/18/19 Range/Units 16:42 Troponin I < 0.03 (< 0.04) ng/mL - Impressions ITS Impressions Chest X-Ray 01/18/19 16:12 IMPRESSION: No acute cardiopulmonary disease. D/ / 01/18/2019 16:35:49 Moisés Clements MD / [facility] Interpreting Provider: Moisés Clements MD - Assessment and Plan (1) Malabsorption syndrome Current Visit: No Status: Chronic Qualifiers: Intestinal malabsorption type: unspecified Qualified Code(s): K90.9 - Intestinal malabsorption, unspecified (2) Anxiety and depression Current Visit: No Status: Chronic (3) DVT prophylaxis Current Visit: No Status: Acute (4) Chronic pancreatitis Current Visit: No Status: Chronic Qualifiers: Pancreatitis type: unspecified pancreatitis type Qualified Code(s): K86.1 - Other chronic pancreatitis (5) Syncope Current Visit: No Status: Acute Qualifiers: Syncope type: unspecified Qualified Code(s): R55 - Syncope and collapse (6) Hypertension Current Visit: No Status: Chronic Qualifiers: Hypertension type: unspecified Qualified Code(s): I10 - Essential (primary) hypertension (7) Orthostatic hypotension Current Visit: Yes Status: Acute (8) FELIPE (acute kidney injury) Current Visit: Yes Status: Acute (9) CHF (congestive heart failure) Current Visit: Yes Status: Chronic Qualifiers: Heart failure type: diastolic Heart failure chronicity: chronic Qualified Code(s): I50.32 - Chronic diastolic (congestive) heart failure - Time Spent With Patient Total time spent is greater than 50% in coordination of care (as documented) at patient's floor/unit and/or counseling patient: - Attending Attestation I performed a history and physical exam of the patient and discussed management with the resident. I reviewed the resident's note and agree with the documented findings and plan of care. 53 year old woman with a plethora of comorbidities as stated above who presents with presyncopal episodes of increasing frequency and found hypotensive. Suspect secondary to her underlying malabsorption syndrome coupled with poor oral and IV intake and ongoing use of diuretics. She also reports 100% occlusion? Of her right carotid artery that is not amenable to surgical intervention. If indeed she does have significant carotid disease, this in the setting of her hypovolemic state would accentuate her neurologic symptoms. Will continue IVF resuscitation as she also has FELIPE, hold diuretic and antihypertensive therapy, check her carotids and monitor on telemetry. Anemia is also present and likely from nutritional deficiency; will check mineral profile. Family history reviewed and found non-contributory. LEILANI BENOIT.
[2019-01-18] MEDS ORDERED: NON-FORMULARY MEDICATION 1 EACH EACH (Potassium Chloride [Klor-Con 10] 10 MEQ) PO SCH (21:00)
[2019-01-18] MEDS ORDERED: Famotidine 20 MG TABLET PO SCH (21:00)
[2019-01-18 21:44] LABS: Calcium 8.7 mg/dL (8.6-10.3); Potassium 4.5 mEq/L (3.5-5.1)
[2019-01-18] MEDS: risperiDONE 1 MG TABLET PO SCH (22:07)
[2019-01-18] MEDS: Sucralfate 1 GM TABLET PO SCH (22:07)
[2019-01-18] MEDS: Famotidine 20 MG TABLET PO SCH (22:09)
[2019-01-18] MEDS: Ringers Solution, Lactated 1,000 ML IVC SCH (23:31)
[2019-01-19] MEDS: *HR* Heparin 5,000 UNIT/ML VIAL SQ SCH ×2 (05:37→17:26)
[2019-01-19 05:42] LABS: % Iron Saturation 5 % (15-50); BUN/Creatinine Ratio 14 (6-26); Blood Urea Nitrogen 16 mg/dL (6-20); Calcium 8.8 mg/dL (8.6-10.3); Carbon Dioxide 25 mEq/L (23-29); Chloride 102 mEq/L (98-107); Glucose 132 mg/dL (70-105); Iron 30 mcg/dL (50-170); Osmolality,Calculated 283 (280-300); Potassium 4.9 mEq/L (3.5-5.1); Sodium 135 mEq/L (136-145); Transferrin 401 mg/dL (203-362); eGFR For Non-African Americans 49 (> 60)
[2019-01-19 06:06] LABS: Folate 6.8 ng/mL (3.0-16.0)
[2019-01-19 06:11] LABS: Ferritin < 8 ng/mL (10-120)
[2019-01-19] MEDS: Ringers Solution, Lactated 1,000 ML IVC SCH ×3 (07:15→20:25)
[2019-01-19] MEDS: Loratadine 10 MG TABLET PO SCH (08:03)
[2019-01-19] MEDS: Venlafaxine XR (24 HR) 75 MG CAP.ER.24H PO SCH (08:03)
[2019-01-19] MEDS: Famotidine 20 MG TABLET PO SCH ×2 (08:03→20:23)
[2019-01-19] MEDS: Niacin (24 HR) 500 MG TAB.ER.24H PO SCH (08:03)
[2019-01-19] MEDS: Sucralfate 1 GM TABLET PO SCH ×4 (08:03→20:24)
[2019-01-19] MEDS: BuPROPion XL (24 HR) 150 MG TABLET PO SCH (08:03)
[2019-01-19] MEDS ORDERED: Cyanocobalamin (B-12) 1,000 MCG/ML VIAL IM SCH (09:00)
--- NOTE | 2019-01-19 12:19 | Internal Med Progress Note ---
Hospitalist Progress Note - Encounter Date of Encounter: 01/19/19 Time of Encounter: 12:19 - Subjective Interval History: Patient presented for syncope. Been going on for several weeks. She did receive some IV fluids and states that she feels much better denies any chest pain or shortness of breath no nausea vomiting or diarrhea overnight. Reported per nursing staff the patient did have episode of tachycardia heart rate up to 1:30 it appears sinus -EKG was obtained. Also noted patient does have a low- grade temperature at 100 she does have a past history of port infections. Currently chest x-rays clear we will obtain urinalysis to rule out UTI suspect syncope may be related to poor oral intake patient is taking Lasix she has a history of malabsorption disorder secondary to gastric bypass. She has a poor for IV fluids as needed and Zofran. She does not drink water and has only been drinking Gatorade - Exam Vitals: Temp Pulse Resp BP Pulse Ox 100.3 F H 87 14 113/75 98 01/19/19 11:21 01/19/19 11:21 01/19/19 11:21 01/19/19 11:21 01/19/19 11:21 Exam: Skin: Free of rash and discoloration. Eyes: Sclera is white. There is no discharge from eyes. ENMT: Oral/pharyngeal mucosa is normal in appearance. There is no discharge from nose or ears. Respiratory: Normal breath sounds with no crackles and wheezes bilaterally. CV: Heart is regular with no gallop or murmur. GI: Abdomen is flat and soft with no palpable mass or visceromegaly. : There is no tenderness in patient's flanks bilaterally. Neuro exam: He has good strength in upper and lower extremities. He has normal eye movements. Psychiatric: He has normal affect. His thought process is appropriate to the situation. - Assessment and Plan (1) Malabsorption syndrome Current Visit: No Status: Chronic Assessment and Plan: History of gastric bypass and malabsorption syndrome-she does use port for IV infusions as needed at home as well as IV Zofran Continue with IV fluids Continue with home medications No nausea vomiting or diarrhea (2) Anxiety and depression Current Visit: No Status: Chronic Assessment and Plan: Home meds (3) DVT prophylaxis Current Visit: No Status: Acute Assessment and Plan: Heparin SQ (4) Chronic pancreatitis Current Visit: No Status: Chronic Assessment and Plan: History of chronic pancreatitis-no pain or discomfort at this time Home meds (5) Syncope Current Visit: No Status: Acute Assessment and Plan: On presentation systolic was in the 60s suspect this is secondary to orthostatic hypotension from dehydration. Patient is also on Lasix Continue with IV fluids Continuous cardiac monitoring Monitor and replace electrolytes Orthostatic vital signs On a duplex does show some stenosis on preliminary awaiting final read may need to discuss with vascular surgery. Patient states she has known right-sided carotid occlusion Cardiac echo 12/22/2018 Impressions: LVEF 65%. Normal LV chamber size, wall thickness and function. Mild left ventricular diastolic dysfunction. Normal right ventricular structure and function. Moderate pulmonary hypertension. Estimated RVSP is 50 mmHg. No significant valvular dysfunction. (6) Hypertension Current Visit: No Status: Chronic Assessment and Plan: Patient has been hypotensive we will hold antihypertensives for now and resume once patient returns to baseline (7) Orthostatic hypotension Current Visit: Yes Status: Acute Assessment and Plan: Orthostatic hypotension and syncope On presentation, BP of 61/39 Continue with IV fluids Labwork unremarkable Suspect multifactorial secondary to malabsorption, fluid depletion, and possibly carotid artery stenosis IV hydration Check carotid duplex-pending final read (8) FELIPE (acute kidney injury) Current Visit: Yes Status: Acute Assessment and Plan: Cr of 1.62 on presentation most likely prerenal she is return to baseline today after IV fluids Continue with IV fluids Continue to monitor creatinine Intake and output (9) CHF (congestive heart failure) Current Visit: Yes Status: Chronic Assessment and Plan: Echo on 12/22/18 shows LVEF 65%. Mild LV diastolic dysfunction. Normal RV function. Moderate pHTN, 50mmHg Hold home Lasix (10) Sinus tachycardia Current Visit: Yes Status: Acute Assessment and Plan: Patient did have a sudden episode of sinus tachycardia no chest pain heart rate up to 1:30 sinus rhythm on EKG she also had a low-grade temperature suspicious for developing infectious process we will obtain urinalysis and continue to monitor closely no leukocytosis at this time - Time Spent with Patient Total time spent is greater than 50% in coordination of care (as documented) at patient's floor/unit and/or counseling patient: Internal Medicine: Result - Labs CBC & Chem 7: 01/18/19 16:42 01/19/19 05:09 Labs: Short CBC 04/29/19 Range/Units 16:42 WBC 8.6 (4.3-11.1) K/mcL Hgb 11.1 L (11.5-15.4) g/dL Hct 35.8 (35.3-44.9) % Plt Count 551 H (140-400) K/mcL Neutrophils # 6.4 (1.6-8.9) K/mcL BMP 01/18/19 01/18/19 01/19/19 16:42 21:16 05:09 Sodium 136 134 L 135 L Potassium 5.1 4.5 4.9 Chloride 96 L 102 102 Carbon Dioxide 28 26 25 BUN 15 15 16 Creatinine 1.62 H 1.27 H 1.16 Glucose 123 H 131 H 132 H Calcium 9.2 8.7 8.8 Cardiac Enzymes 01/18/19 Range/Units 16:42 Troponin I < 0.03 (< 0.04) ng/mL - Impressions Impressions Chest X-Ray 01/18/19 16:12 IMPRESSION: No acute cardiopulmonary disease. D/ / 01/18/2019 16:35:49 Moisés Clements MD / [facility] Interpreting Provider: Moisés Clements MD Consult Discharge Plan - Plan Referrals: Niecy Albarran CNP [Primary Care Provider] - (1) Malabsorption syndrome Qualifiers: Intestinal malabsorption type: unspecified Qualified Code(s): K90.9 - Intestinal malabsorption, unspecified (4) Chronic pancreatitis Qualifiers: Pancreatitis type: unspecified pancreatitis type Qualified Code(s): K86.1 - Other chronic pancreatitis (5) Syncope Qualifiers: Syncope type: unspecified Qualified Code(s): R55 - Syncope and collapse (6) Hypertension Qualifiers: Hypertension type: unspecified Qualified Code(s): I10 - Essential (primary) hypertension (9) CHF (congestive heart failure) Qualifiers: Heart failure type: diastolic Heart failure chronicity: chronic Qualified Code(s): I50.32 - Chronic diastolic (congestive) heart failure
--- NOTE | 2019-01-19 15:22 | Electrocardiograph Report ---
[place] [id number] Test Date: 2019-01-18 Pat Name: Amol Astudillo Department: [id number] Room: 3B Gender: F Animal Ride Attendant: : 1965 Requested By: Joe Leary Order Number: [id number] Reading MD: Miguelangel Maciel Measurements Intervals [place] Rate: 60 P: 5 [place]: 138 QRS: 8 QRSD: 88 T: 60 QT: 447 QTc: 447 Interpretive Statements Sinus rhythm Electronically Signed On 01-19-2019 15:21:14 EDT by Miguelangel Maciel
[2019-01-19 19:25] LABS: Bilirubin,Urine Negative (Negative); Blood,Urine Negative (Negative); Clarity,Urine Clear (Clear); Color,Urine Yellow (Yellow); Glucose,Urine (UA) Normal (Normal); Ketones,Urine Negative (Negative); Leukocyte Esterase,Urine Negative (Negative); Nitrite,Urine Negative (Negative); PH,Urine 7.5 pH Units (5.0-8.0); Protein,Urine Negative (Neg-Trace); Specific Gravity,Urine < 1.005 (1.010-1.025); Urobilinogen,Urine Normal (Normal)
[2019-01-19] MEDS: risperiDONE 1 MG TABLET PO SCH (20:23)
[2019-01-20] MEDS: Ringers Solution, Lactated 1,000 ML IVC SCH ×2 (00:37→07:44)
[2019-01-20 01:01] LABS: Basophils # 0.1 K/mcL (0.0-0.2); Basophils % 0.6 %; Eosinophils % 0.2 %; Immature Granulocytes % 0.3 % (0-4); Lymphocytes # 1.5 K/mcL (0.6-4.6); Lymphocytes % 17.2 %; Mean Corpuscular HGB Conc 31.3 g/dL (31.6-35.5); Mean Corpuscular Hemoglobin 24.2 pg (28.0-33.3); Mean Corpuscular Volume 77.1 fL (83.0-100.0); Mean Platelet Volume 8.9 fL (9.4-12.4); Monocytes # 0.3 K/mcL (0.0-1.3); Neutrophils # 6.7 K/mcL (1.6-8.9); Platelet Count 383 K/mcL (140-400); Red Blood Count 3.89 M/mcL (3.82-4.97); Red Cell Distribution Width 18.4 % (11.5-14.5); Segmented Neutrophils % 77.7 %
[2019-01-20 01:04] LABS: Hemoglobin 9.4 g/dL (11.5-15.4)
[2019-01-20 01:19] LABS: BUN/Creatinine Ratio 12 (6-26); Blood Urea Nitrogen 12 mg/dL (6-20); Calcium 9.1 mg/dL (8.6-10.3); Carbon Dioxide 28 mEq/L (23-29); Chloride 102 mEq/L (98-107); Glucose 98 mg/dL (70-105); Osmolality,Calculated 282 (280-300); Potassium 4.2 mEq/L (3.5-5.1); Sodium 136 mEq/L (136-145); eGFR For Non-African Americans 57 (> 60)
[2019-01-20] MEDS: *HR* Heparin 5,000 UNIT/ML VIAL SQ SCH ×2 (06:21→18:05)
[2019-01-20] MEDS: Sucralfate 1 GM TABLET PO SCH ×4 (06:21→19:49)
[2019-01-20] MEDS: Venlafaxine XR (24 HR) 75 MG CAP.ER.24H PO SCH (07:41)
[2019-01-20] MEDS: BuPROPion XL (24 HR) 150 MG TABLET PO SCH (07:41)
[2019-01-20] MEDS: Loratadine 10 MG TABLET PO SCH (07:41)
[2019-01-20] MEDS: Niacin (24 HR) 500 MG TAB.ER.24H PO SCH (07:41)
[2019-01-20] MEDS: Famotidine 20 MG TABLET PO SCH ×2 (07:42→19:48)
[2019-01-20] MEDS: Acetaminophen 325 MG TABLET PO PRN ×2 (08:56→17:02)
[2019-01-20] MEDS: Ondansetron 4 MG/2 ML VIAL IVP PRN ×2 (08:57→16:58)
[2019-01-20] MEDS: Multivit/Ca/Min/Fe/FA 1 TAB TABLET PO SCH (09:41)
--- NOTE | 2019-01-20 12:29 | Internal Med Progress Note ---
Hospitalist Progress Note - Encounter Date of Encounter: 01/20/19 Time of Encounter: 12:27 - Subjective Interval History: pt reported fever, chills this morning. No cough, sob, or chest pain. Mild abd pain with chronic diarrhea. - Exam Vitals: Temp Pulse Resp BP Pulse Ox 100.5 F H 94 16 106/71 94 01/20/19 11:42 01/20/19 11:42 01/20/19 11:42 01/20/19 11:42 01/20/19 11:42 Exam: Skin: Free of rash and discoloration. Eyes: Sclera is white. There is no discharge from eyes. ENMT: Oral/pharyngeal mucosa is normal in appearance. There is no discharge from nose or ears. Respiratory: Normal breath sounds with no crackles and wheezes bilaterally. CV: Heart is regular with no gallop or murmur. GI: Abdomen is flat and soft with no palpable mass or visceromegaly. : There is no tenderness in patient's flanks bilaterally. Neuro exam: He has good strength in upper and lower extremities. He has normal eye movements. Psychiatric: He has normal affect. His thought process is appropriate to the situation. - Assessment and Plan (1) Fever Current Visit: Yes Status: Acute Assessment and Plan: Had fever this morning at 101.4, blood cx obtained. WBC slightly elevated. No identifiable source at this time. Continue monitoring. (2) Malabsorption syndrome Current Visit: No Status: Chronic Assessment and Plan: History of gastric bypass and malabsorption syndrome-she does use port for IV infusions as needed at home as well as IV Zofran. recent c-scopes with un-optimal results due to poor bowel prep. GI recommended repeat c-scope in a year. Diarrhea seems secretroy and occurs at night, will check celiac panel, VIP, and gastrin. well-hydrated, DC IVF. (3) Anxiety and depression Current Visit: No Status: Chronic Assessment and Plan: Home meds (4) Chronic pancreatitis Current Visit: No Status: Chronic Assessment and Plan: History of chronic pancreatitis-no pain or discomfort at this time Home meds (5) Syncope Current Visit: No Status: Acute Assessment and Plan: On presentation systolic was in the 60s suspect this is secondary to orthostatic hypotension from dehydration. Patient is also on Lasix BP improved with IVF. Resume home BP meds. Hold Lasix for now. Carotid doppler showed abnormal flow of the right caroid, CTA head and neck ordered. (6) Hypertension Current Visit: No Status: Chronic Assessment and Plan: Home meds resumed. (7) Orthostatic hypotension Current Visit: Yes Status: Acute Assessment and Plan: same as above. improved. (8) FELIPE (acute kidney injury) Current Visit: Yes Status: Acute Assessment and Plan: Cr of 1.62 on presentation most likely prerenal she is return to baseline today after IV fluids Continue to monitor creatinine Intake and output (9) CHF (congestive heart failure) Current Visit: Yes Status: Chronic Assessment and Plan: Echo on 12/22/18 shows LVEF 65%. Mild LV diastolic dysfunction. Normal RV function. Moderate pHTN, 50mmHg Hold home Lasix (10) DVT prophylaxis Current Visit: No Status: Acute Assessment and Plan: Heparin SQ - Time Spent with Patient Total time spent is greater than 50% in coordination of care (as documented) at patient's floor/unit and/or counseling patient: Greater than 35 minutes Plan of Care Discussed with: patient Internal Medicine: Result - Labs CBC & Chem 7: 01/20/19 00:39 01/20/19 00:39 Labs: Short CBC 01/20/19 Range/Units 00:39 WBC 8.6 (4.3-11.1) K/mcL Hgb 9.4 L D (11.5-15.4) g/dL Hct 30.0 L (35.3-44.9) % Plt Count 383 (140-400) K/mcL Neutrophils # 6.7 (1.6-8.9) K/mcL BMP 01/20/19 00:39 Sodium 136 Potassium 4.2 Chloride 102 Carbon Dioxide 28 BUN 12 Creatinine 1.02 Glucose 98 Calcium 9.1 Urine 01/19/19 Range/Units 18:51 Urine Color Yellow (Yellow) Urine Clarity Clear (Clear) Urine pH 7.5 (5.0-8.0) pH Units Ur Specific [place] < 1.005 L (1.010-1.025) Urine Protein Negative (Neg-Trace) mg/dL Urine Glucose (UA) Normal (Normal) mg/dL Consult Discharge Plan - Plan Referrals: Niecy Albarran [employer] [Primary Care Provider] - (1) Fever Qualifiers: Fever type: unspecified Qualified Code(s): R50.9 - Fever, unspecified (2) Malabsorption syndrome Qualifiers: Intestinal malabsorption type: unspecified Qualified Code(s): K90.9 - Intestinal malabsorption, unspecified (4) Chronic pancreatitis Qualifiers: Pancreatitis type: unspecified pancreatitis type Qualified Code(s): K86.1 - Other chronic pancreatitis (5) Syncope Qualifiers: Syncope type: unspecified Qualified Code(s): R55 - Syncope and collapse (6) Hypertension Qualifiers: Hypertension type: unspecified Qualified Code(s): I10 - Essential (primary) hypertension (9) CHF (congestive heart failure) Qualifiers: Heart failure type: diastolic Heart failure chronicity: chronic Qualified Code(s): I50.32 - Chronic diastolic (congestive) heart failure
[2019-01-20] MEDS ORDERED: Isovue-370 500 ML BOTTLE IVP ONE (14:54)
[2019-01-20] MEDS: risperiDONE 1 MG TABLET PO SCH (19:48)
[2019-01-21 00:08] LABS: Acinetobacter baumannii by PCR Not Detected (Not Detect); Candida albicans by PCR Not Detected (Not Detect); Candida glabrata by PCR Not Detected (Not Detect); Candida krusei by PCR Not Detected (Not Detect); Candida parapsilosis by PCR Not Detected (Not Detect); Candida tropicalis by PCR Not Detected (Not Detect); Enterobacter cloacae Cmplx PCR Not Detected (Not Detect); Enterobacteriaceae by PCR DETECTED (Not Detect); Enterococcus by PCR Not Detected (Not Detect); Escherichia coli by PCR Not Detected (Not Detect); Klebsiella oxytoca by PCR Not Detected (Not Detect); Klebsiella pneumoniae by PCR Not Detected (Not Detect); Proteus by PCR Not Detected (Not Detect); Pseudomonas aeruginosa by PCR Not Detected (Not Detect); Serratia marcescens by PCR Not Detected (Not Detect); Staphylococcus aureus by PCR Not Detected (Not Detect); Staphylococcus by PCR Not Detected (Not Detect); Streptococcus agalactiae(B)PCR Not Detected (Not Detect); Streptococcus by PCR Not Detected (Not Detect); Streptococcus pneumoniae PCR Not Detected (Not Detect); Streptococcus pyogenes (A) PCR Not Detected (Not Detect); blaKPC Carbapenem-Resist Gene Not Detected (Not Detect); mecA Methicillin-Resist Gene Not Detected (Not Detect); vanA/B Vancomycin-Resist Genes Not Detected (Not Detect)
[2019-01-21 03:29] LABS: Basophils % 0.3 %; Eosinophils % 0.3 %; Hematocrit 30.9 % (35.3-44.9); Hemoglobin 9.6 g/dL (11.5-15.4); Immature Granulocytes % 0.3 % (0-4); Lymphocytes # 1.5 K/mcL (0.6-4.6); Lymphocytes % 12.9 %; Mean Corpuscular HGB Conc 31.1 g/dL (31.6-35.5); Mean Corpuscular Hemoglobin 24.2 pg (28.0-33.3); Mean Platelet Volume 8.8 fL (9.4-12.4); Monocytes # 0.6 K/mcL (0.0-1.3); Monocytes % 5.3 %; Neutrophils # 9.4 K/mcL (1.6-8.9); Platelet Count 328 K/mcL (140-400); Red Blood Count 3.96 M/mcL (3.82-4.97); Red Cell Distribution Width 18.5 % (11.5-14.5); Segmented Neutrophils % 80.9 %
[2019-01-21 03:49] LABS: BUN/Creatinine Ratio 9 (6-26); Blood Urea Nitrogen 10 mg/dL (6-20); Calcium 9.1 mg/dL (8.6-10.3); Carbon Dioxide 24 mEq/L (23-29); Chloride 103 mEq/L (98-107); Glucose 135 mg/dL (70-105); Osmolality,Calculated 285 (280-300); Potassium 3.6 mEq/L (3.5-5.1); Sodium 137 mEq/L (136-145); eGFR For Non-African Americans 51 (> 60)
[2019-01-21] MEDS: *HR* Heparin 5,000 UNIT/ML VIAL SQ SCH ×2 (05:42→17:35)
[2019-01-21] MEDS: Famotidine 20 MG TABLET PO SCH ×2 (08:30→20:44)
[2019-01-21] MEDS: Sucralfate 1 GM TABLET PO SCH ×4 (08:31→20:44)
[2019-01-21] MEDS: Loratadine 10 MG TABLET PO SCH (08:31)
[2019-01-21] MEDS: Niacin (24 HR) 500 MG TAB.ER.24H PO SCH (08:31)
[2019-01-21] MEDS: Multivit/Ca/Min/Fe/FA 1 TAB TABLET PO SCH (08:31)
[2019-01-21] MEDS: BuPROPion XL (24 HR) 150 MG TABLET PO SCH (08:31)
[2019-01-21] MEDS: Venlafaxine XR (24 HR) 75 MG CAP.ER.24H PO SCH (08:32)
[2019-01-21] MEDS: Cholecalciferol (D-3) 1,000 UNIT TABLET PO SCH (08:32)
[2019-01-21] MEDS: Cefepime HCl 2,000 MG in Water for inj. (sterile) 20 ML 20 ML IVP SCH ×2 (08:35→17:39)
--- NOTE | 2019-01-21 10:20 | Internal Med Progress Note ---
Hospitalist Progress Note - Encounter Date of Encounter: 01/21/19 Time of Encounter: 10:18 - Subjective Interval History: Pt seen and examined in the room. She reported no fever, or chills now. Still having mild abd pain and diarrhea, but this is her baseline now. - Exam Vitals: Temp Pulse Resp BP Pulse Ox 98.3 F 84 14 128/80 96 01/21/19 07:13 01/21/19 07:13 01/21/19 07:13 01/21/19 07:13 01/21/19 07:13 Exam: Skin: Free of rash and discoloration. Eyes: Sclera is white. There is no discharge from eyes. ENMT: Oral/pharyngeal mucosa is normal in appearance. There is no discharge from nose or ears. Respiratory: Normal breath sounds with no crackles and wheezes bilaterally. CV: Heart is regular with no gallop or murmur. GI: Abdomen is flat and soft with no palpable mass or visceromegaly. : There is no tenderness in patient's flanks bilaterally. Neuro exam: He has good strength in upper and lower extremities. He has normal eye movements. Psychiatric: He has normal affect. His thought process is appropriate to the situation. - Assessment and Plan (1) Fever Current Visit: Yes Status: Acute Assessment and Plan: Had fever at 101.4 on 01/20, blood cx grew gram neg rods . WBC slightly elevated today. No signs of infection in lung, abd, or bladder, IV port infection was suspected. Cefepime started. (2) Malabsorption syndrome Current Visit: No Status: Chronic Assessment and Plan: History of gastric bypass and malabsorption syndrome-she does use port for IV infusions as needed at home as well as IV Zofran. recent c-scopes with un-optimal results due to poor bowel prep. GI recommended repeat c-scope in a year. Diarrhea seems secretroy and occurs at night, will check celiac panel, VIP, calprotctin, elatase, and gastrin. well-hydrated, DC IVF. (3) Anxiety and depression Current Visit: No Status: Chronic Assessment and Plan: Home meds (4) Chronic pancreatitis Current Visit: No Status: Chronic Assessment and Plan: History of chronic pancreatitis-no pain or discomfort at this time Home meds (5) Syncope Current Visit: No Status: Acute Assessment and Plan: On presentation systolic was in the 60s suspect this is secondary to orthostatic hypotension from dehydration. Patient is also on Lasix BP improved with IVF but still very soft. Hold Lasix for now. 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 (6) Hypertension Current Visit: No Status: Chronic Assessment and Plan: Hold lasix due to low BP. (7) Orthostatic hypotension Current Visit: Yes Status: Acute Assessment and Plan: same as above. improved. (8) FELIPE (acute kidney injury) Current Visit: Yes Status: Acute Assessment and Plan: Cr of 1.62 on presentation most likely prerenal, 1.12, today after IV fluids. IVF dc'ed. Continue to monitor creatinine (9) CHF (congestive heart failure) Current Visit: No Status: Chronic Assessment and Plan: Echo on 12/22/18 shows LVEF 65%. Mild LV diastolic dysfunction. Normal RV fun ction. Moderate pHTN, 50mmHg Hold home Lasix due to low BP, no volume overload on physical. (10) DVT prophylaxis Current Visit: No Status: Acute Assessment and Plan: Heparin SQ - Time Spent with Patient Total time spent is greater than 50% in coordination of care (as documented) at patient's floor/unit and/or counseling patient: Greater than 35 minutes Plan of Care Discussed with: patient Internal Medicine: Result - Labs CBC & Chem 7: 01/21/19 03:15 01/21/19 03:15 Labs: Short CBC 01/21/19 Range/Units 03:15 WBC 11.7 H (4.3-11.1) K/mcL Hgb 9.6 L (11.5-15.4) g/dL Hct 30.9 L (35.3-44.9) % Plt Count 328 (140-400) K/mcL Neutrophils # 9.4 H (1.6-8.9) K/mcL BMP 01/21/19 03:15 Sodium 137 Potassium 3.6 Chloride 103 Carbon Dioxide 24 BUN 10 Creatinine 1.12 Glucose 135 H Calcium 9.1 - Impressions Impressions Head CTA 01/20/19 14:54 IMPRESSION: 1. No acute intracranial abnormality. Unremarkable head CT without contrast. 2. 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 Reconstitution of flow within the supraclinoid right ICA. 3. Otherwise, unremarkable CTA of the neck. 4. Unremarkable CTA of the head. D/ : / 01/20/2019 18:22:00 Israel Bueno MD / winnie Interpreting Provider: Israel Bueno MD Neck CTA 01/20/19 14:54 IMPRESSION: 1. No acute intracranial abnormality. Unremarkable head CT without contrast. 2. 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 Reconstitution of flow within the supraclinoid right ICA. 3. Otherwise, unremarkable CTA of the neck. 4. Unremarkable CTA of the head. D/ : / 01/20/2019 18:22:00 Israel Bueno MD / winnie Interpreting Provider: Israel Bueno MD Consult Discharge Plan - Plan Referrals: Niecy Albarran CNP [Primary Care Provider] - (1) Fever Qualifiers: Fever type: unspecified Qualified Code(s): R50.9 - Fever, unspecified (2) Malabsorption syndrome Qualifiers: Intestinal malabsorption type: unspecified Qualified Code(s): K90.9 - Intestinal malabsorption, unspecified (4) Chronic pancreatitis Qualifiers: Pancreatitis type: unspecified pancreatitis type Qualified Code(s): K86.1 - Other chronic pancreatitis (5) Syncope Qualifiers: Syncope type: unspecified Qualified Code(s): R55 - Syncope and collapse (6) Hypertension Qualifiers: Hypertension type: unspecified Qualified Code(s): I10 - Essential (primary) hypertension (9) CHF (congestive heart failure) Qualifiers: Heart failure type: diastolic Heart failure chronicity: chronic Qualified Code(s): I50.32 - Chronic diastolic (congestive) heart failure
--- NOTE | 2019-01-21 13:50 | Infectious Disease Consult ---
Infectious Disease-Consult - Encounter Date/Time Date of Encounter: 01/21/19 Time of Encounter: 13:46 - Data of Consult Patient: known to practice within the last 3 years Reason for consult: Bacteremia Consult date: 01/21/19 Requesting Physician: Colette Briggs Primary Care Provider: Niecy Albarran - [facility] HPI: Ms. Astudillo is a 53 year old male with a past medical history of triple bypass with chronic malabsorption syndrome, pancreatitis, COPD, hyperlipidemia, GERD, seizure disorder, and previous history of a port infections. The patient was admitted to the hospital 01/18/19 for syncope and orthostatic hypotension. We are consulted 01/21/19 for further workup and treatment recommendations for bacteremia. Briefly, the patient is a 53-year-old female with a past medical history as stated above. The patient presented to the emergency department with complaints of feeling dizzy, lightheaded, and syncopal episodes. Upon arrival, she was afebrile. She was markedly hypotensive with a blood pressure 61/39. Laboratories studies revealed a normal white blood cell count. She did have a mild acute kidney injury with a creatinine of 1.27. Troponin was negative. Chest x-ray was negative. She was given IV fluids and admitted to the hospital for further evaluation. Since admission, the patient's blood pressure has improved. On 01/19/19, she became febrile and tachycardic. Yesterday, she had a fever with a MAXIMUM TEMPERATURE of 101.6. Blood cultures were obtained from the patient a port in her +2 out of 2 sets for gram-negative rods. The PCR is positive for Enterobacteriaceae, the final ID and sensitivities are pending. She had a carotid duplex study that showed right external carotid artery occlusion and left ICA with 60-79% stenosis. She underwent a CTA of the head and neck that showed complete occlusion of the cervical right ICA. She was started empirically on IV cefepime. We have been asked to evaluate and make further recommendations. During my exam today, the patient states that for two weeks prior to admission she was having near-syncopal episodes where she would feel like she was unconscious, but was aware it was happening and couldn't do anything about it. States fevers started after admission. Denies headache, neck pain, or focal neuro deficit. Denies chest pain, shortness of breath, or cough. Reports chronic nausea and epigastric/RUQ abdominal pain. Denies vomiting. Reports chronic diarrhea secondary to malabsorption syndrom from previous gastric bypass surgery. She reports an overall poor appetite and little PO intake. She has an aport that she uses to give herself IV fluids and IV zofran on a daily basis. States her home health nurse comes every Friday and changes the dressing and the access needle and it was done the Friday prior to admission. Denies pain, redness, swelling, or drainage that the aport site and states it was put in about a year ago after her previous one got infected. She got another bacteremia in July, but we opted to treat through and try to salvage the port with IV antibiotics. The patient lives at home. She does not work outside the home. Denies recent travel. Denies tobacco, alcohol, or illicit drug use. - ROS Review of Systems: All systems reviewed and no additional remarkable complaints except as stated. - Results CBC & Chem 7: 01/22/19 03:45 01/22/19 03:45 - Exam Vitals: Temp Pulse Resp BP Pulse Ox 98 F 123 14 142/90 97 01/21/19 11:33 01/21/19 11:33 01/21/19 11:33 01/21/19 11:33 01/21/19 11:33 Exam: Head: Atraumatic, normal inspection, normocephalic. Eye: EOMI, PERRLA, no scleral icterus noted. ENT: Mucous membranes moist. No odontogenic infection noted. Poor dentition noted. Neck: Normal inspection, no meningismus. Respiratory: Clear to auscultation. No rales, respiratory distress, rhonchi, or wheezes noted. Cardiovascular: Regular rate and rhythm, S1 and S2 audible. No murmurs, rubs, or gallops. GI: Soft, nondistended, normal bowel sounds. Tenderness noted to the RUQ and epigastric regions. Extremities: No joint swelling, pedal edema, or tenderness noted. Back: Normal inspection. No vertebral tenderness noted. Neurological: Alert, oriented 3, no focal deficits. Psychiatric: normal affect, normal mood. Skin: Dry, intact, warm. Normal color. No rashes. Additional exam findings: A-port noted to the left upper chest currently accessed with Sneed needle and transparent dressing C/D/I. No surrounding erythema, warmth, tenderness, or drainage noted. Venlafaxine XR (24 HR) [Effexor Xr] 75 mg PO DAILY 07/25/17 [History] BuPROPion XL (24 HR) [Wellbutrin Xl] 300 mg PO DAILY 08/20/17 [History] Loratadine [Allergy Relief] 10 mg PO DAILY 12/11/17 [History] Lipase/Protease/Amylase [Creon Dr 6,000 Units Capsule] 1 cap PO QIDAC 12/28/17 [History] Montelukast [Singulair] 10 mg PO HS 03/08/18 [History] Niacin [Plain Niacin] 500 mg PO DAILY 03/08/18 [History] Ranitidine HCl [Acid Torpedo Shooter] 150 mg PO BID 03/08/18 [History] Pantoprazole Sodium 40 mg PO BID 08/07/18 [History] Furosemide [Lasix] 20 mg PO DAILY 01/01/19 [History] Ondansetron [Zofran] 8 mg IV Q8HR PRN 01/01/19 [History] Potassium Chloride [Klor-Con 10] 10 meq PO BID 01/01/19 [History] Sucralfate [Carafate] 1 gm PO QIDAC 01/01/19 [History] risperiDONE [RisperDAL] 1 mg PO HS 01/01/19 [History] Cholecalciferol (Vitamin D3) [Vitamin D] 5,000 unit PO DAILY 01/19/19 [History] Ferrous Fumarate [Ferrocite] 324 mg PO DAILY 01/19/19 [History] Nitroglycerin [Nitrostat] 0.4 mg SL Q5M PRN 01/19/19 [History] Polyethylene Glycol 3350 [MiraLAX] 17 gm PO DAILY PRN 01/19/19 [History] Tizanidine HCl 4 mg PO BID PRN 01/19/19 [History] Allergy/AdvReac Type Severity Reaction Status Date / Time butalbital [From Fioricet] Allergy Hives Verified 06/01/18 12:46 caffeine [From Fioricet] Allergy Hives Verified 06/01/18 12:46 Parrish Allergy Hives Verified 06/01/18 12:46 phenytoin [From Dilantin] Allergy Hives Verified 06/01/18 12:46 methocarbamol [From Robaxin] AdvReac Vomiting Verified 06/01/18 12:46 - Assessment and Plan (1) Sepsis Current Visit: No Status: Acute The patient has fever, tachycardia, and leukocytosis. Likely secondary to bacteremia. Blood cultures drawn 01/20/19 from the a-port are positive 2/2 sets for GNR. No peripheral blood cultures were obtained. Qualifiers: Sepsis type: sepsis due to unspecified organism Qualified Code(s): A41.9 - Sepsis, unspecified organism SNOMED Code(s): 45021528 (2) Bacteremia Current Visit: No Status: Acute Causative organism: unclear. Blood cultures drawn 01/20/19 are positive 2/2 for GNR. PCR picked up Enterobacteriacea, but nothing else. Source: unclear. The a-port could certainly be the source, but given the patient's long-standing history of GI issues, concerned for intra-abdominal source given that it is a gram negative. Clinically, the a-port does not appear infected. Currently on IV cefepime. SNOMED Code(s): 9851259 (3) FELIPE (acute kidney injury) Current Visit: Yes Status: Acute Likely pre-renal from poor PO intake. Improved. Management per the primary team. SNOMED Code(s): 66551202, 70961358 (4) Syncope Current Visit: No Status: Acute Likely multifactorial: orthostatic hypotension + right ICA occlusion Carotid duplex showed right external artery occlusion. CTA of the head and neck showed complete occlusion of the cervical right ICA. Further workup and management per the primary team. Qualifiers: Syncope type: unspecified Qualified Code(s): R55 - Syncope and collapse SNOMED Code(s): 155849017 (5) Orthostatic hypotension Current Visit: Yes Status: Acute SNOMED Code(s): 19854616 (6) Carotid artery occlusion Current Visit: Yes Status: Acute Further workup and management per the primary team. Qualifiers: Laterality: unspecified laterality Qualified Code(s): I65.29 - Occlusion and stenosis of unspecified carotid artery SNOMED Code(s): 253301839 (7) Port catheter in place Current Visit: No Status: Acute SNOMED Code(s): 235933458 (8) Chronic pancreatitis Current Visit: No Status: Chronic Qualifiers: Pancreatitis type: unspecified pancreatitis type Qualified Code(s): K86.1 - Other chronic pancreatitis SNOMED Code(s): 148074328 (9) CKD (chronic kidney disease) stage 3, GFR 30-59 ml/min Current Visit: No Status: Acute Avoid nephrotoxins and dose-adjust medications. SNOMED Code(s): 475202533 (10) History of CVA (cerebrovascular accident) Current Visit: No Status: Chronic SNOMED Code(s): 751107210 (11) History of OR (myocardial infarction) Current Visit: No Status: Chronic SNOMED Code(s): 712820737 (12) Malabsorption Current Visit: No Status: Chronic Qualifiers: Intestinal malabsorption type: unspecified Qualified Code(s): K90.9 - Intes tinal malabsorption, unspecified SNOMED Code(s): 598741949 (13) Seizure disorder Current Visit: No Status: Chronic SNOMED Code(s): 714748723 - Recommendations Recommendations: Await final ID and sensitivities. Repeat blood cultures x 2 sets (one from a-port and one peripherally). Check amylase, lipase, and LFTs. Consider CT of the abdomen and pelvis to rule out intra-abdominal source. Continue cefepime 2 grams IV Q12H. Duration of treatment depends on the clinical picture. Monitor renal function and for drug toxicity and dose-adjust antibiotics. Past Med Surg Social Fam HX - Past Medical History Medical history: asthma, COPD, coronary artery disease, CVA, GERD, hyperlipidemia, hypertension, myocardial infarction, renal disease, seizures, TIA Additional medical history: carotid stenosis, DLD, chronic pancreatitis Psychiatric history: anxiety, bipolar, depression - Past Surgical History Surgical History: cholecystectomy, hysterectomy, orthopedic, other Additional surgical history: tonsillectomy, adenoidectomy, uvula, Back surgery, neck surgery, adbdominoplasty, gastric bypass - Social History Smoking Status: Never smoker Smokeless Tobacco Status: No Alcohol use: none Drug use: none - Family History Mother Family Member Ethnicity: Non- Living Status: Hx Family Cardiac Disorders: No Hx Family Respiratory Disorders: No Hx Family Cancer: Yes (Esophageal) Hx Family GI Disorders: No Hx Family Endocrine Disorder: No Hx Family Neuromuscular Disorders: No Hx Family Neurologic Disorders: No Hx Family HEENT Disorders: No Hx Family Autoimmune Disorders: No Father Family Member Ethnicity: Non- Living Status: Hx Family Cancer: Yes (Prostate) Hx Family Neurologic Disorders: Yes (Alzheimer's disease) Brother Family Member Ethnicity: Non- Living Status: Still Living Hx Family Neurologic Disorders: Yes (Bipolar) Sister Adopted: No Family Member Ethnicity: Non- Living Status: Hx Family Cardiac Disorders: Yes Hx Family Respiratory Disorders: No Hx Family Cancer: Yes Hx Family GI Disorders: No Hx Family Endocrine Disorder: No Hx Family Neuromuscular Disorders: No Hx Family Neurologic Disorders: No Hx Family HEENT Disorders: No Hx Family Autoimmune Disorders: No Consult Discharge Plan - Plan Referrals: Niecy Albarran CNP [Primary Care Provider] - - Attending Attestation I have personally performed a face to face evaluation on this patient. I have re viewed and agree with the care plan. History and Exam by me shows: Patient is a 53-year-old woman who has multiple past medical history mentioned above also has chronic pancreatitis with malabsorption who has a a port in the chest that she uses for normal saline 1 bag every other day. Patient apparently had one on the left chest that get infected. Then a new one was placed it as [facility] on the right chest also get infected that one was removed and she had another one placed on the left chest and now she comes in with bacteremia with gram-negative rods. We were asked to evaluate the patient and make further recommendations. Physical exam the port does not appear to be infected and there is no surrounding erythema or drainage. Patient does have chronic abdominal pain and chronic nausea that she takes Zofran 4 but physical exam is otherwise unremarkable. Assessment and plan: 1.Sepsis 2.Bacteremia with gram-negative lorena 2 out of 2 sets final ID is pending 3.Chronic pancreatitis requiring hydration 4.Acute kidney injury 5.Status post multiple a port infections Recommendations Await final ID and sensitivities. Repeat blood cultures x 2 sets (one from a-port and one peripherally). Check amylase, lipase, and LFTs. Consider CT of the abdomen and pelvis to rule out intra-abdominal source. Continue cefepime 2 grams IV Q12H. Duration of treatment depends on the clinical picture. Monitor renal function and for drug toxicity and dose-adjust antibiotics.
[2019-01-21] MEDS ORDERED: Isovue-370 500 ML BOTTLE IVP ONE (15:52)
[2019-01-21 16:41] LABS: Albumin 3.9 g/dL (3.5-5.7); Albumin/Globulin Ratio 1.2 (1.1-2.2); Bilirubin,Direct 0.1 mg/dL (0.0-0.2); Bilirubin,Indirect 0.3 mg/dL (0.0-1.2); Bilirubin,Total 0.4 mg/dL (0.3-1.0); Globulin 3.3 g/dL (2.4-3.5); Total Protein 7.2 g/dL (6.4-8.9)
[2019-01-21] MEDS ORDERED: Cefepime HCl 2,000 MG in 0.9 % Sodium Chloride Mini Bag 100 ML IVPB SCH (18:00)
[2019-01-21] MEDS: risperiDONE 1 MG TABLET PO SCH (20:44)
[2019-01-22 04:23] LABS: Basophils # 0.1 K/mcL (0.0-0.2); Basophils % 0.7 %; Eosinophils # 0.2 K/mcL (0.0-0.6); Hemoglobin 9.8 g/dL (11.5-15.4); Immature Granulocytes % 0.3 % (0-4); Lymphocytes # 1.7 K/mcL (0.6-4.6); Lymphocytes % 19.4 %; Mean Corpuscular HGB Conc 31.6 g/dL (31.6-35.5); Mean Corpuscular Hemoglobin 24.4 pg (28.0-33.3); Mean Corpuscular Volume 77.1 fL (83.0-100.0); Mean Platelet Volume 9.2 fL (9.4-12.4); Monocytes % 11.6 %; Neutrophils # 5.7 K/mcL (1.6-8.9); Platelet Count 392 K/mcL (140-400); Red Blood Count 4.02 M/mcL (3.82-4.97); Red Cell Distribution Width 18.9 % (11.5-14.5)
[2019-01-22 04:28] LABS: Calcium 9.4 mg/dL (8.6-10.3); Potassium 3.7 mEq/L (3.5-5.1)
[2019-01-22] MEDS: *HR* Heparin 5,000 UNIT/ML VIAL SQ SCH ×2 (06:09→17:42)
[2019-01-22] MEDS: Cefepime HCl 2,000 MG in Water for inj. (sterile) 20 ML 20 ML IVP SCH (06:09)
[2019-01-22] MEDS: Multivit/Ca/Min/Fe/FA 1 TAB TABLET PO SCH (09:50)
[2019-01-22] MEDS: Famotidine 20 MG TABLET PO SCH ×2 (09:51→19:25)
[2019-01-22] MEDS: Loratadine 10 MG TABLET PO SCH (09:51)
[2019-01-22] MEDS: Niacin (24 HR) 500 MG TAB.ER.24H PO SCH (09:51)
[2019-01-22] MEDS: BuPROPion XL (24 HR) 150 MG TABLET PO SCH (09:51)
[2019-01-22] MEDS: Cholecalciferol (D-3) 1,000 UNIT TABLET PO SCH (09:51)
[2019-01-22] MEDS: Venlafaxine XR (24 HR) 75 MG CAP.ER.24H PO SCH (09:51)
--- NOTE | 2019-01-22 09:52 | Internal Med Progress Note ---
Hospitalist Progress Note - Encounter Date of Encounter: 01/22/19 Time of Encounter: 09:49 - Subjective Interval History: She reported one episode of syncope last night when got up to wash her hand. She has no fever, chills, or night sweats overnight. MediPort site clean and dry, no redness or drainage. - Exam Vitals: Temp Pulse Resp BP Pulse Ox 98.3 F 91 17 113/77 95 01/22/19 06:53 01/22/19 06:53 01/22/19 06:53 01/22/19 06:53 01/22/19 06:53 Exam: Skin: Free of rash and discoloration. Eyes: Sclera is white. There is no discharge from eyes. ENMT: Oral/pharyngeal mucosa is normal in appearance. There is no discharge from nose or ears. Respiratory: Normal breath sounds with no crackles and wheezes bilaterally. CV: Heart is regular with no gallop or murmur. GI: Abdomen is flat and soft with no palpable mass or visceromegaly. : There is no tenderness in patient's flanks bilaterally. Neuro exam: He has good strength in upper and lower extremities. He has normal eye movements. Psychiatric: He has normal affect. His thought process is appropriate to the situation. - Assessment and Plan (1) Syncope Current Visit: Yes Status: Acute Assessment and Plan: On presentation systolic was in the 60s suspect this is secondary to orthostatic hypotension from dehydration. Patient is also on Lasix Carotid doppler showed abnormal flow of the right caroid, CTA showed complete occlusion of right ICA. 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 BP improved with IVF but still very soft. Hold Lasix for now. Due to persistent syncope, will start patient on fludrocortisone. (2) Fever Current Visit: Yes Status: Acute Assessment and Plan: Had fever at 101.4 on 01/20, blood cx grew gram neg rods . WBC slightly elevated 01/21, normalized today. No signs of infection in lung, abd, or bladder, IV port infection was suspected. Cefepime started. ID consulted, repeat blood culture obtained, pending results. (3) Malabsorption syndrome Current Visit: No Status: Chronic Assessment and Plan: History of gastric bypass and malabsorption syndrome-she does use port for IV infusions as needed at home as well as IV Zofran. recent c-scopes with un-optimal results due to poor bowel prep. GI recommended repeat c-scope in a year. Diarrhea seems secretroy and occurs at night, will check celiac panel, VIP, calprotctin, elatase, and gastrin. well-hydrated, DC IVF. (4) Anxiety and depression Current Visit: No Status: Chronic Assessment and Plan: Home meds (5) Chronic pancreatitis Current Visit: No Status: Chronic Assessment and Plan: History of chronic pancreatitis-no pain or discomfort at this time Home meds (6) Hypertension Current Visit: No Status: Chronic Assessment and Plan: Hold lasix due to low BP. (7) Orthostatic hypotension Current Visit: Yes Status: Acute Assessment and Plan: same as above. improved. (8) FELIPE (acute kidney injury) Current Visit: Yes Status: Acute Assessment and Plan: Cr of 1.62 on presentation most likely prerenal, currently 1.19. IVF dc'ed. Continue to monitor creatinine (9) CHF (congestive heart failure) Current Visit: No Status: Chronic Assessment and Plan: Echo on 12/22/18 shows LVEF 65%. Mild LV diastolic dysfunction. Normal RV function. Moderate pHTN, 50mmHg Hold home Lasix due to low BP, no volume overload on physical. (10) DVT prophylaxis Current Visit: Yes Status: Acute Assessment and Plan: Heparin SQ - Time Spent with Patient Total time spent is greater than 50% in coordination of care (as documented) at patient's floor/unit and/or counseling patient: Greater than 35 minutes Plan of Care Discussed with: patient Internal Medicine: Result - Labs CBC & Chem 7: 01/22/19 03:45 01/22/19 03:45 Labs: Short CBC 01/22/19 Range/Units 03:45 WBC 8.7 (4.3-11.1) K/mcL Hgb 9.8 L (11.5-15.4) g/dL Hct 31.0 L (35.3-44.9) % Plt Count 392 (140-400) K/mcL Neutrophils # 5.7 (1.6-8.9) K/mcL BMP 01/22/19 03:45 Sodium 137 Potassium 3.7 Chloride 105 Carbon Dioxide 23 BUN 12 Creatinine 1.19 Glucose 69 L Calcium 9.4 Liver Function 01/21/19 Range/Units 16:11 Total Bilirubin 0.4 (0.3-1.0) mg/dL Direct Bilirubin 0.1 (0.0-0.2) mg/dL AST 16 (13-39) Units/L ALT 15 (7-52) Units/L Alkaline Phosphatase 102 (34-104) Units/L Albumin 3.9 (3.5-5.7) g/dL - Impressions Impressions Abdomen/Pelvis CT 01/21/19 18:30 IMPRESSION: No acute intra-abdominal or pelvic process seen. D/ / Jagdish Garcia MD / Jagdish Garcia MD Interpreting Provider: Jagdish Garcia MD Consult Discharge Plan - Plan Referrals: Niecy Albarran CNP [Primary Care Provider] - (1) Syncope Qualifiers: Syncope type: unspecified Qualified Code(s): R55 - Syncope and collapse (2) Fever Qualifiers: Fever type: unspecified Qualified Code(s): R50.9 - Fever, unspecified (3) Malabsorption syndrome Qualifiers: Intestinal malabsorption type: unspecified Qualified Code(s): K90.9 - Intestinal malabsorption, unspecified (5) Chronic pancreatitis Qualifiers: Pancreatitis type: unspecified pancreatitis type Qualified Code(s): K86.1 - Other chronic pancreatitis (6) Hypertension Qualifiers: Hypertension type: unspecified Qualified Code(s): I10 - Essential (primary) hypertension (9) CHF (congestive heart failure) Qualifiers: Heart failure type: diastolic Heart failure chronicity: chronic Qualified Code(s): I50.32 - Chronic diastolic (congestive) heart failure
[2019-01-22 10:07] LABS: Immunoglobulin A (CELIAC) 287 mg/dL (68-408)
[2019-01-22 10:17] LABS: Tissue Transglutaminase IgA 0 U/mL (0-3)
[2019-01-22] MEDS: Sucralfate 1 GM TABLET PO SCH ×4 (10:52→20:16)
--- NOTE | 2019-01-22 11:32 | Infectious Disease Progress No ---
ID Progress Note Date of Encounter: 01/22/19 Time of Encounter: 10:30 - Subjective Subjective: Patient seen and examined. No acute events noted overnight. Patient states overall she feels much better today. Denies fevers, chills, or rigors. Denies headache or neck pain. Denies chest pain, shortness of breath, or cough. Reports chronic nausea and right upper quadrant abdominal pain that are at baseline. Denies urinary complaints. Denies oral thrush or any skin lesions. Denies pain at her a port site. - Objective CBC & Chem 7: 01/22/19 03:45 01/22/19 03:45 - Exam Vitals: Temp Pulse Resp BP Pulse Ox 98.3 F 91 17 113/77 95 01/22/19 06:53 01/22/19 06:53 01/22/19 06:53 01/22/19 06:53 01/22/19 06:53 Exam: Head: Atraumatic, normal inspection, normocephalic. Eye: EOMI, PERRLA, no scleral icterus noted. ENT: Mucous membranes moist. No odontogenic infection noted. Poor dentition noted. Neck: Normal inspection, no meningismus. Respiratory: Clear to auscultation. No rales, respiratory distress, rhonchi, or wheezes noted. Cardiovascular: Regular rate and rhythm, S1 and S2 audible. No murmurs, rubs, or gallops. GI: Soft, nondistended, normal bowel sounds. Tenderness noted to the RUQ and epigastric regions. Extremities: No joint swelling, pedal edema, or tenderness noted. Back: Normal inspection. No vertebral tenderness noted. Neurological: Alert, oriented 3, no focal deficits. Psychiatric: normal affect, normal mood. Skin: Dry, intact, warm. Normal color. No rashes. Additional exam findings: A-port noted to the left upper chest currently accessed with Sneed needle and transparent dressing C/D/I. No surrounding ezio thema, warmth, tenderness, or drainage noted. - Assessment and Plan (1) Sepsis Current Visit: No Status: Acute The patient has fever, tachycardia, and leukocytosis. Likely secondary to bacteremia. Blood cultures drawn 01/20/19 from the a-port are positive 2/2 sets for Klebsiella oxytoca. Repeat blood cultures drawn 01/21/19 are pending 2 sets (1 from her a port and one drawn concurrently from a peripheral stick). Qualifiers: Sepsis type: sepsis due to unspecified organism Qualified Code(s): A41.9 - Sepsis, unspecified organism SNOMED Code(s): 45977066 (2) Bacteremia Current Visit: No Status: Acute Causative organism: Klebsiella oxytoca. Blood cultures drawn 01/20/19 from the a-port are positive 2/2 sets for Klebsiella oxytoca. Repeat blood cultures drawn 01/21/19 are pending 2 sets (1 from her a port and one drawn concurrently from a peripheral stick). Source: Likely the patient's a port. CT of the abdomen and pelvis negative for acute abnormality to explain the patient's bacteremia. Amylase, lipase, and LFTs are normal. Clinically, the a-port does not appear infected. 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 The last time the patient had her a port exchange was back in December 2017. At that time, she had blood and a port cultures come back positive for Klebsiella oxytoca and MSSA. Repeat blood cultures obtained after port removal were negative. It is unclear how long the patient was without a port prior to reinsertion. Currently on IV cefepime. SNOMED Code(s): 8067820 (3) FELIPE (acute kidney injury) Current Visit: Yes Status: Acute Likely pre-renal from poor PO intake. Improved. Management per the primary team. SNOMED Code(s): 13725601, 47643787 (4) Syncope Current Visit: No Status: Acute Likely multifactorial: orthostatic hypotension + right ICA occlusion Carotid duplex showed right external artery occlusion. CTA of the head and neck showed complete occlusion of the cervical right ICA. Further workup and management per the primary team. Qualifiers: Syncope type: unspecified Qualified Code(s): R55 - Syncope and collapse SNOMED Code(s): 768699978 (5) Orthostatic hypotension Current Visit: Yes Status: Acute SNOMED Code(s): 47890957 (6) Carotid artery occlusion Current Visit: Yes Status: Acute Further workup and management per the primary team. Qualifiers: Laterality: unspecified laterality Qualified Code(s): I65.29 - Occlusion and stenosis of unspecified carotid artery SNOMED Code(s): 047856354 (7) Port catheter in place Current Visit: No Status: Acute SNOMED Code(s): 508637188 (8) Chronic pancreatitis Current Visit: No Status: Chronic Qualifiers: Pancreatitis type: unspecified pancreatitis type Qualified Code(s): K86.1 - Other chronic pancreatitis SNOMED Code(s): 680582598 (9) CKD (chronic kidney disease) stage 3, GFR 30-59 ml/min Current Visit: No Status: Acute Avoid nephrotoxins and dose-adjust medications. SNOMED Code(s): 968656799 (10) History of CVA (cerebrovascular accident) Current Visit: No Status: Chronic SNOMED Code(s): 469934982 (11) History of OR (myocardial infarction) Current Visit: No Status: Chronic SNOMED Code(s): 554515976 (12) Malabsorption Current Visit: No Status: Chronic Qualifiers: Intestinal malabsorption type: unspecified Qualified Code(s): K90.9 - Intestinal malabsorption, unspecified SNOMED Code(s): 087811573 (13) Seizure disorder Current Visit: No Status: Chronic SNOMED Code(s): 790962942 - Recommendations Recommendations: Await repeat blood cultures. Needs to remove port We will place of midline and treat with Rocephin 2 g IV every 24 hours for 4 weeks Will wait 2 weeks and repeat blood cultures make sure the bacteremia has resolved Then a new port can be placed again. Monitor labs and for drug toxicity Consult Discharge Plan - Plan Referrals: Niecy Albarran [employer]IGONOMET[employer] TEACHER [Primary Care Provider] - - Attending Attestation I have personally performed a face to face evaluation on this patient. I have reviewed and agree with the care plan. History and Exam by me shows: Assessment and plan: 1.Sepsis 2.Bacteremia with gram-negative lorena 2 out of 2 sets final ID is pending 3.Chronic pancreatitis requiring hydration 4.Acute kidney injury 5.Status post multiple a port infections Recommendations: Await repeat blood cultures. Needs to remove port We will place of midline and treat with Rocephin for 4 weeks Will wait 2 weeks and repeat blood cultures make sure the bacteremia has resolved Then a new port can be placed again
[2019-01-22] MEDS: cefTRIAXone 2,000 MG in Water for inj. (sterile) 20 ML 20 ML IVP SCH (14:12)
[2019-01-22] MEDS: Ondansetron 4 MG/2 ML VIAL IVP PRN ×2 (16:19→23:58)
[2019-01-22] MEDS ORDERED: Metoprolol XL (24 HR) Succ 25 MG TAB.ER.24H PO SCH (17:15)
[2019-01-22] MEDS: cloNIDine HCl 0.1 MG TABLET PO SCH ×2 (17:43→23:39)
[2019-01-22] MEDS: risperiDONE 1 MG TABLET PO SCH (19:26)
[2019-01-22] MEDS: Acetaminophen 325 MG TABLET PO PRN (20:23)
[2019-01-23] MEDS: *HR* Heparin 5,000 UNIT/ML VIAL SQ SCH ×2 (05:02→16:20)
[2019-01-23] MEDS: Acetaminophen 325 MG TABLET PO PRN (08:53)
[2019-01-23] MEDS: Cholecalciferol (D-3) 1,000 UNIT TABLET PO SCH (08:53)
[2019-01-23] MEDS: Ondansetron 4 MG/2 ML VIAL IVP PRN ×2 (08:53→16:23)
[2019-01-23] MEDS: Multivit/Ca/Min/Fe/FA 1 TAB TABLET PO SCH (08:54)
[2019-01-23] MEDS: BuPROPion XL (24 HR) 150 MG TABLET PO SCH (08:54)
[2019-01-23] MEDS: Loratadine 10 MG TABLET PO SCH (08:54)
[2019-01-23] MEDS: Venlafaxine XR (24 HR) 75 MG CAP.ER.24H PO SCH (08:54)
[2019-01-23] MEDS: Famotidine 20 MG TABLET PO SCH ×2 (08:54→20:23)
[2019-01-23] MEDS: Niacin (24 HR) 500 MG TAB.ER.24H PO SCH (08:54)
[2019-01-23] MEDS: Furosemide 20 MG TABLET PO SCH (08:54)
[2019-01-23] MEDS: cefTRIAXone 2,000 MG in Water for inj. (sterile) 20 ML 20 ML IVP SCH (08:54)
[2019-01-23] MEDS: Sucralfate 1 GM TABLET PO SCH ×4 (08:54→20:29)
[2019-01-23] MEDS: cloNIDine HCl 0.1 MG TABLET PO SCH ×3 (08:54→20:22)
--- NOTE | 2019-01-23 10:59 | Internal Med Progress Note ---
Hospitalist Progress Note - Encounter Date of Encounter: 01/23/19 Time of Encounter: 10:56 - Subjective Interval History: Patient seen and examined in room, she has no fever, chills, or night sweats. She denies syncope, lightheadedness, or palpitation. - Exam Vitals: Temp Pulse Resp BP Pulse Ox 98.5 F 109 16 165/107 98 01/23/19 10:35 01/23/19 10:35 01/23/19 10:35 01/23/19 10:35 01/23/19 10:35 Exam: Skin: Free of rash and discoloration. Eyes: Sclera is white. There is no discharge from eyes. ENMT: Oral/pharyngeal mucosa is normal in appearance. There is no discharge from nose or ears. Respiratory: Normal breath sounds with no crackles and wheezes bilaterally. CV: Heart is regular with no gallop or murmur. GI: Abdomen is flat and soft with no palpable mass or visceromegaly. : There is no tenderness in patient's flanks bilaterally. Neuro exam: He has good strength in upper and lower extremities. He has normal eye movements. Psychiatric: He has normal affect. His thought process is appropriate to the situation. - Assessment and Plan (1) Syncope Current Visit: Yes Status: Acute Assessment and Plan: On presentation systolic was in the 60s suspect this is secondary to orthostatic hypotension from dehydration. 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 BP improved with IVF. BP currently was elevated, home medication has not restarted, clonidine added, continue monitoring. Patient blood pressure was extremely labile, she also has episodic tachycardia and syncope, symptoms are suspicious for pheochromocytoma, labs for metanephrine was ordered, results pending. Due to persistent syncope, fludrocortisone started. (2) Fever Current Visit: Yes Status: Acute Assessment and Plan: Had fever at 101.4 on 01/20, blood cx grew Klebsiella. She had multiple Mediport infection with Klebsiella in the past, which resulted in multiple Mediport removal and replacement. ID consulted, repeat blood culture obtained, pending results. IV antibiotics changed from cefepime to Rocephin per ID recommendation, removal of Mediport was advised by ID, which could happen in next week. Recommended IV antibiotics for 6 weeks per ID, we will set up home infusion upon discharge. Because her medical conditions, patient needs Mediport replacement, we will arrange this after blood culture was confirmed to be negative for at least 3 days. (3) Malabsorption syndrome Current Visit: No Status: Chronic Assessment and Plan: History of gastric bypass and malabsorption syndrome-she does use port for IV infusions as needed at home. recent c-scopes with un-optimal results due to poor bowel prep. GI recommended repeat c-scope in a year. Diarrhea seems secretroy and occurs at night, negative celiac panel and normal gastrin. symptoms started after gastric bypass surgery. Patient currently well hydrated. (4) Anxiety and depression Current Visit: No Status: Chronic Assessment and Plan: Home meds. (5) Chronic pancreatitis Current Visit: No Status: Chronic Assessment and Plan: History of chronic pancreatitis-no pain or discomfort at this time Home meds (6) Hypertension Current Visit: No Status: Chronic Assessment and Plan: BP was elevated, resume home Lasix, clonidine added. (7) Orthostatic hypotension Current Visit: Yes Status: Acute Assessment and Plan: same as above. improved. (8) FELIPE (acute kidney injury) Current Visit: Yes Status: Acute Assessment and Plan: Cr of 1.62 on presentation most likely prerenal, currently 1.19 on 01/22. [facility]ed. Continue to monitor creatinine (9) CHF (congestive heart failure) Current Visit: No Status: Chronic Assessment and Plan: Echo on 12/22/18 shows LVEF 65%. Mild LV diastolic dysfunction. Normal RV function. Moderate pHTN, 50mmHg Hold home Lasix due to low BP, no volume overload on physical. (10) Iron deficiency anemia Current Visit: No Status: Acute Assessment and Plan: Continue iron supplement. H/H stable. (11) DVT prophylaxis Current Visit: Yes Status: Acute Assessment and Plan: Heparin SQ - Time Spent with Patient Total time spent is greater than 50% in coordination of care (as documented) at patient's floor/unit and/or counseling patient: Greater than 35 minutes Plan of Care Discussed with: patient Internal Medicine: Result - Labs CBC & Chem 7: 01/22/19 03:45 01/22/19 03:45 - Impressions Impressions Head CTA 01/20/19 14:54 IMPRESSION: 1. No acute intracranial abnormality. Unremarkable head CT without contrast. 2. 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 Reconstitution of flow within the supraclinoid right ICA. 3. Otherwise, unremarkable CTA of the neck. 4. Unremarkable CTA of the head. D/ : / 01/20/2019 18:22:00 Israel Bueno MD / winnie Interpreting Provider: Israel Bueno MD Neck CTA 01/20/19 14:54 IMPRESSION: 1. No acute intracranial abnormality. Unremarkable head CT without contrast. 2. 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 Reconstitution of flow within the supraclinoid right ICA. 3. Otherwise, unremarkable CTA of the neck. 4. Unremarkable CTA of the head. D/ /20/2019 18:22:00 Israel Bueno MD / winnie Interpreting Provider: Israel Bueno MD Consult Discharge Plan - Plan Referrals: Niecy Albarran CNP [Primary Care Provider] - (1) Syncope Qualifiers: Syncope type: unspecified Qualified Code(s): R55 - Syncope and collapse (2) Fever Qualifiers: Fever type: unspecified Qualified Code(s): R50.9 - Fever, unspecified (3) Malabsorption syndrome Qualifiers: Intestinal malabsorption type: unspecified Qualified Code(s): K90.9 - Intestinal malabsorption, unspecified (5) Chronic pancreatitis Qualifiers: Pancreatitis type: unspecified pancreatitis type Qualified Code(s): K86.1 - Other chronic pancreatitis (6) Hypertension Qualifiers: Hypertension type: unspecified Qualified Code(s): I10 - Essential (primary) hypertension (9) CHF (congestive heart failure) Qualifiers: Heart failure type: diastolic Heart failure chronicity: chronic Qualified Code(s): I50.32 - Chronic diastolic (congestive) heart failure (10) Iron deficiency anemia Qualifiers: Iron deficiency anemia type: unspecified iron deficiency Qualified Code(s): D50.9 - Iron deficiency anemia, unspecified
[2019-01-23] MEDS: risperiDONE 1 MG TABLET PO SCH (20:22)
[2019-01-24 02:48] LABS: Basophils # 0.1 K/mcL (0.0-0.2); Basophils % 0.7 %; Eosinophils # 0.2 K/mcL (0.0-0.6); Hemoglobin 9.7 g/dL (11.5-15.4); Immature Granulocytes % 0.4 % (0-4); Lymphocytes % 26.7 %; Mean Corpuscular HGB Conc 31.3 g/dL (31.6-35.5); Mean Corpuscular Hemoglobin 24.3 pg (28.0-33.3); Mean Corpuscular Volume 77.5 fL (83.0-100.0); Monocytes # 0.6 K/mcL (0.0-1.3); Monocytes % 7.7 %; Neutrophils # 4.7 K/mcL (1.6-8.9); Platelet Count 451 K/mcL (140-400); Red Cell Distribution Width 18.9 % (11.5-14.5); Segmented Neutrophils % 62.5 %
[2019-01-24 03:10] LABS: BUN/Creatinine Ratio 11 (6-26); Blood Urea Nitrogen 10 mg/dL (6-20); Carbon Dioxide 22 mEq/L (23-29); Chloride 105 mEq/L (98-107); Potassium 3.4 mEq/L (3.5-5.1); Sodium 138 mEq/L (136-145)
[2019-01-24 03:11] LABS: Calcium 9.3 mg/dL (8.6-10.3); Glucose 98 mg/dL (70-105); Osmolality,Calculated 285 (280-300); eGFR For Non-African Americans > 60 (> 60)
[2019-01-24] MEDS: *HR* Heparin 5,000 UNIT/ML VIAL SQ SCH ×2 (05:34→17:20)
[2019-01-24] MEDS: cefTRIAXone 2,000 MG in Water for inj. (sterile) 20 ML 20 ML IVP SCH (07:53)
[2019-01-24] MEDS: Ondansetron 4 MG/2 ML VIAL IVP PRN ×2 (07:53→20:04)
[2019-01-24] MEDS: Acetaminophen 325 MG TABLET PO PRN (07:53)
[2019-01-24] MEDS: Multivit/Ca/Min/Fe/FA 1 TAB TABLET PO SCH (07:53)
[2019-01-24] MEDS: cloNIDine HCl 0.1 MG TABLET PO SCH ×3 (07:54→19:58)
[2019-01-24] MEDS: Famotidine 20 MG TABLET PO SCH ×2 (07:54→19:58)
[2019-01-24] MEDS: BuPROPion XL (24 HR) 150 MG TABLET PO SCH (07:54)
[2019-01-24] MEDS: Niacin (24 HR) 500 MG TAB.ER.24H PO SCH (07:55)
[2019-01-24] MEDS: Loratadine 10 MG TABLET PO SCH (07:55)
[2019-01-24] MEDS: Furosemide 20 MG TABLET PO SCH (07:55)
[2019-01-24] MEDS: Cholecalciferol (D-3) 1,000 UNIT TABLET PO SCH (07:55)
[2019-01-24] MEDS: Sucralfate 1 GM TABLET PO SCH ×4 (07:55→20:22)
--- NOTE | 2019-01-24 09:36 | Internal Med Progress Note ---
Hospitalist Progress Note - Encounter Date of Encounter: 01/24/19 Time of Encounter: 09:34 - Subjective Interval History: Patient seen and examined in the room. She has no fever, chills, or night sweats. - Exam Vitals: Temp Pulse Resp BP Pulse Ox 98.7 F 104 16 175/106 95 01/24/19 06:52 01/24/19 06:52 01/24/19 06:52 01/24/19 06:52 01/24/19 06:52 Exam: Skin: Free of rash and discoloration. Eyes: Sclera is white. There is no discharge from eyes. ENMT: Oral/pharyngeal mucosa is normal in appearance. There is no discharge from nose or ears. Respiratory: Normal breath sounds with no crackles and wheezes bilaterally. CV: Heart is regular with no gallop or murmur. GI: Abdomen is flat and soft with no palpable mass or visceromegaly. : There is no tenderness in patient's flanks bilaterally. Neuro exam: He has good strength in upper and lower extremities. He has normal eye movements. Psychiatric: He has normal affect. His thought process is appropriate to the situation. - Assessment and Plan (1) Syncope Current Visit: Yes Status: Acute Assessment and Plan: On presentation systolic was in the 60s suspect this is secondary to orthostatic hypotension from dehydration. 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 BP improved with IVF. BP currently was elevated, home medication has not restarted, clonidine added, continue monitoring. Patient blood pressure was extremely labile, she also has episodic tachycardia and syncope, symptoms are suspicious for pheochromocytoma, labs for metanephrine was ordered, results pending. Due to persistent syncope, fludrocortisone started. (2) Fever Current Visit: Yes Status: Acute Assessment and Plan: Had fever at 101.4 on 01/20, blood cx grew Klebsiella. currently afebrile. She had multiple Mediport infection with Klebsiella in the past, which resulted in multiple Mediport removal and replacement. ID consulted, repeat blood culture obtained, pending results. IV antibiotics changed from cefepime to Rocephin per ID recommendation, removal of Mediport was advised by ID, which could happen in next week. Recommended IV antibiotics for 6 weeks per ID, we will set up home infusion upon discharge. Because her medical conditions, patient needs Mediport replacement, we will arrange this after blood culture was confirmed to be negative for at least 3 days. (3) Malabsorption syndrome Current Visit: No Status: Chronic Assessment and Plan: History of gastric bypass and malabsorption syndrome-she does use port for IV infusions as needed at home. recent c-scopes with un-optimal results due to poor bowel prep. GI recommended repeat c-scope in a year. Diarrhea seems secretroy and occurs at night, negative celiac panel and normal gastrin. pending VIP level. symptoms started after gastric bypass surgery. Patient currently well hydrated. (4) Anxiety and depression Current Visit: No Status: Chronic Assessment and Plan: Home meds. (5) Chronic pancreatitis Current Visit: No Status: Chronic Assessment and Plan: History of chronic pancreatitis-no pain or discomfort at this time Home meds (6) Hypertension Current Visit: No Status: Chronic Assessment and Plan: BP was elevated, resume home Lasix, clonidine added. workup as above. (7) Orthostatic hypotension Current Visit: Yes Status: Acute Assessment and Plan: same as above. improved. (8) FELIPE (acute kidney injury) Current Visit: Yes Status: Resolved (9) CHF (congestive heart failure) Current Visit: No Status: Chronic Assessment and Plan: Echo on 12/22/18 shows LVEF 65%. Mild LV diastolic dysfunction. Normal RV fu nction. Moderate pHTN, 50mmHg no volume overload on physical, continue Lasix. (10) Iron deficiency anemia Current Visit: No Status: Acute Assessment and Plan: Continue iron supplement. H/H stable. (11) Sepsis Current Visit: Yes Status: Resolved (12) DVT prophylaxis Current Visit: Yes Status: Acute Assessment and Plan: Heparin SQ - Time Spent with Patient Total time spent is greater than 50% in coordination of care (as documented) at patient's floor/unit and/or counseling patient: Greater than 35 minutes Plan of Care Discussed with: patient Internal Medicine: Result - Labs CBC & Chem 7: 01/24/19 01:47 01/24/19 01:47 Labs: Short CBC 01/24/19 Range/Units 01:47 WBC 7.5 (4.3-11.1) K/mcL Hgb 9.7 L (11.5-15.4) g/dL Hct 31.0 L (35.3-44.9) % Plt Count 451 H (140-400) K/mcL Neutrophils # 4.7 (1.6-8.9) K/mcL [facility] 01/24/19 01:47 Sodium 138 Potassium 3.4 L Chloride 105 Carbon Dioxide 22 L BUN 10 Creatinine 0.93 Glucose 98 Calcium 9.3 Consult Discharge Plan - Plan Referrals: Niecy Albarran CNP [Primary Care Provider] - (1) Syncope Qualifiers: Syncope type: unspecified Qualified Code(s): R55 - Syncope and collapse (2) Fever Qualifiers: Fever type: unspecified Qualified Code(s): R50.9 - Fever, unspecified (3) Malabsorption syndrome Qualifiers: Intestinal malabsorption type: unspecified Qualified Code(s): K90.9 - Intestinal malabsorption, unspecified (5) Chronic pancreatitis Qualifiers: Pancreatitis type: unspecified pancreatitis type Qualified Code(s): K86.1 - Other chronic pancreatitis (6) Hypertension Qualifiers: Hypertension type: unspecified Qualified Code(s): I10 - Essential (primary) hypertension (9) CHF (congestive heart failure) Qualifiers: Heart failure type: diastolic Heart failure chronicity: chronic Qualified Code(s): I50.32 - Chronic diastolic (congestive) heart failure (10) Iron deficiency anemia Qualifiers: Iron deficiency anemia type: unspecified iron deficiency Qualified Code(s): D50.9 - Iron deficiency anemia, unspecified (11) Sepsis Qualifiers: Sepsis type: sepsis due to unspecified organism Qualified Code(s): A41.9 - Sepsis, unspecified organism
[2019-01-24] MEDS: risperiDONE 1 MG TABLET PO SCH (19:58)
[2019-01-25] MEDS: *HR* Heparin 5,000 UNIT/ML VIAL SQ SCH ×2 (05:33→16:19)
[2019-01-25 05:51] LABS: BUN/Creatinine Ratio 13 (6-26); Blood Urea Nitrogen 14 mg/dL (6-20); Calcium 9.9 mg/dL (8.6-10.3); Carbon Dioxide 26 mEq/L (23-29); Chloride 104 mEq/L (98-107); Glucose 98 mg/dL (70-105); Osmolality,Calculated 288 (280-300); Potassium 3.9 mEq/L (3.5-5.1); Sodium 139 mEq/L (136-145); eGFR For Non-African Americans 54 (> 60)
[2019-01-25] MEDS: cefTRIAXone 2,000 MG in Water for inj. (sterile) 20 ML 20 ML IVP SCH (08:04)
[2019-01-25] MEDS: BuPROPion XL (24 HR) 150 MG TABLET PO SCH (08:05)
[2019-01-25] MEDS: Loratadine 10 MG TABLET PO SCH (08:05)
[2019-01-25] MEDS: Famotidine 20 MG TABLET PO SCH ×2 (08:06→19:55)
[2019-01-25] MEDS: cloNIDine HCl 0.1 MG TABLET PO SCH ×3 (08:06→19:56)
[2019-01-25] MEDS: Sucralfate 1 GM TABLET PO SCH ×4 (08:13→20:43)
[2019-01-25] MEDS: Furosemide 20 MG TABLET PO SCH (08:14)
[2019-01-25] MEDS: Cholecalciferol (D-3) 1,000 UNIT TABLET PO SCH (08:14)
[2019-01-25] MEDS: Niacin (24 HR) 500 MG TAB.ER.24H PO SCH (08:14)
[2019-01-25] MEDS: Multivit/Ca/Min/Fe/FA 1 TAB TABLET PO SCH (08:14)
[2019-01-25 08:37] LABS: INR 1.1
[2019-01-25] MEDS: Ondansetron 4 MG/2 ML VIAL IVP PRN ×2 (09:33→18:26)
--- NOTE | 2019-01-25 10:15 | Internal Med Progress Note ---
Hospitalist Progress Note - Encounter Date of Encounter: 01/25/19 Time of Encounter: 10:13 - Subjective Interval History: Patient seen and examined in the room. She denies fever, chills, night sweats. Further syncopal episode. - Exam Vitals: Temp Pulse Resp BP Pulse Ox 98.2 F 94 20 141/91 94 01/25/19 07:10 01/25/19 07:10 01/25/19 07:10 01/25/19 07:10 01/25/19 07:10 Exam: Skin: Free of rash and discoloration. Eyes: Sclera is white. There is no discharge from eyes. ENMT: Oral/pharyngeal mucosa is normal in appearance. There is no discharge from nose or ears. Respiratory: Normal breath sounds with no crackles and wheezes bilaterally. CV: Heart is regular with no gallop or murmur. GI: Abdomen is flat and soft with no palpable mass or visceromegaly. : There is no tenderness in patient's flanks bilaterally. Neuro exam: He has good strength in upper and lower extremities. He has normal eye movements. Psychiatric: He has normal affect. His thought process is appropriate to the situation. - Assessment and Plan (1) Syncope Current Visit: Yes Status: Acute Assessment and Plan: On presentation systolic was in the 60s suspect this is secondary to orthostatic hypotension from dehydration. 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 BP improved with IVF. BP currently was elevated, home medication has not restarted, clonidine added, continue monitoring. Patient blood pressure was extremely labile, she also has episodic tachycardia and syncope, symptoms are suspicious for pheochromocytoma, labs for metanephrine was ordered, results pending. Due to persistent syncope, fludrocortisone started. Symptoms improved. (2) Fever Current Visit: Yes Status: Resolved Assessment and Plan: Had fever at 101.4 on 01/20, blood cx grew Klebsiella. currently afebrile. She had multiple Mediport infection with Klebsiella in the past, which resulted in multiple Mediport removal and replacement. ID consulted, repeat blood culture obtained, pending results. IV antibiotics changed from cefepime to Rocephin per ID recommendation, removal of Mediport was advised by ID, which could happen in next week. Recommended IV antibiotics for 6 weeks per ID, we will set up home infusion upon discharge. Because her medical conditions, patient needs Mediport replacement, plan to place a new mediport on Friday. (3) Sepsis Current Visit: Yes Status: Resolved (4) Malabsorption syndrome Current Visit: No Status: Chronic Assessment and Plan: History of gastric bypass and malabsorption syndrome-she does use port for IV infusions as needed at home. recent c-scopes with un-optimal results due to poor bowel prep. GI recommended repeat c-scope in a year. Diarrhea seems secretroy and occurs at night, negative celiac panel and normal gastrin. pending VIP level and urine for HIAA. symptoms started after gastric bypass surgery. Patient currently well hydrated. (5) Anxiety and depression Current Visit: No Status: Chronic Assessment and Plan: Home meds. (6) Chronic pancreatitis Current Visit: No Status: Chronic Assessment and Plan: History of chronic pancreatitis-no pain or discomfort at this time Home meds (7) Hypertension Current Visit: No Status: Chronic Assessment and Plan: BP was elevated, resume home Lasix, clonidine added. workup as above. (8) Orthostatic hypotension Current Visit: Yes Status: Acute Assessment and Plan: same as above. improved. (9) FELIPE (acute kidney injury) Current Visit: Yes Status: Resolved (10) CHF (congestive heart failure) Current Visit: No Status: Chronic Assessment and Plan: Echo on 12/22/18 shows LVEF 65%. Mild LV diastolic dysfunction. Normal RV function. Moderate pHTN, 50mmHg no volume overload on physical, continue Lasix. (11) Iron deficiency anemia Current Visit: No Status: Acute Assessment and Plan: Continue iron supplement. H/H stable. (12) DVT prophylaxis Current Visit: Yes Status: Acute Assessment and Plan: Heparin SQ - Time Spent with Patient Total time spent is greater than 50% in coordination of care (as documented) at patient's floor/unit and/or counseling patient: Greater than 35 minutes Plan of Care Discussed with: patient Internal Medicine: Result - Labs CBC & Chem 7: 01/24/19 01:47 01/25/19 04:50 Labs: BMP 01/25/19 04:50 Sodium 139 Potassium 3.9 Chloride 104 Carbon Dioxide 26 BUN 14 Creatinine 1.07 Glucose 98 Calcium 9.9 - ABG Interpretation ABG results: PT/INR, D-dimer PT 12.0 Seconds (9.4-12.1) 01/25/19 08:15 Consult Discharge Plan - Plan Referrals: Niecy Albarran CNP [Primary Care Provider] - (1) Syncope Qualifiers: Syncope type: unspecified Qualified Code(s): R55 - Syncope and collapse (2) Fever Qualifiers: Fever type: unspecified Qualified Code(s): R50.9 - Fever, unspecified (3) Sepsis Qualifiers: Sepsis type: sepsis due to unspecified organism Qualified Code(s): A41.9 - Sepsis, unspecified organism (4) Malabsorption syndrome Qualifiers: Intestinal malabsorption type: unspecified Qualified Code(s): K90.9 - Intestinal malabsorption, unspecified (6) Chronic pancreatitis Qualifiers: Pancreatitis type: unspecified pancreatitis type Qualified Code(s): K86.1 - Other chronic pancreatitis (7) Hypertension Qualifiers: Hypertension type: unspecified Qualified Code(s): I10 - Essential (primary) hypertension (10) CHF (congestive heart failure) Qualifiers: Heart failure type: diastolic Heart failure chronicity: chronic Qualified Code(s): I50.32 - Chronic diastolic (congestive) heart failure (11) Iron deficiency anemia Qualifiers: Iron deficiency anemia type: unspecified iron deficiency Qualified Code(s): D50.9 - Iron deficiency anemia, unspecified
[2019-01-25] MEDS ORDERED: 0.9 % Sodium Chloride 500 ML ONE ×2 (11:19→11:43)
--- NOTE | 2019-01-25 11:20 | Physician Discharge Referral ---
Home Health/Hosp Referral Info Transfer to: Home Health Provider in Charge Post Discharge: PCP - Diagnosis (1) Syncope Priority: Primary Status: Acute (2) Fever Priority: Primary Status: Resolved (3) Sepsis Priority: Primary Status: Resolved (4) Malabsorption syndrome Priority: Secondary Status: Chronic (5) Anxiety and depression Priority: Secondary Status: Chronic (6) Chronic pancreatitis Priority: Secondary Status: Chronic (7) Hypertension Priority: Secondary Status: Chronic (8) Orthostatic hypotension Priority: Primary Status: Acute (9) FELIPE (acute kidney injury) Priority: Primary Status: Resolved (10) CHF (congestive heart failure) Priority: Secondary Status: Chronic (11) Iron deficiency anemia Priority: Primary Status: Acute (12) Postsurgical dumping syndrome Priority: Primary Status: Acute (13) Infected venous access port Priority: Primary Status: Acute (14) DVT prophylaxis Priority: Primary Status: Acute - Respiratory Orders Smoking Cessation: Smoking cessation has been advised. For more information, call the [employer] Tobacco Quit Line at 3-079-KQQA-NOW. - Services Needed Following services are medically necessary services: Nursing, Home Health Aide, Physical Therapy, Occupational Therapy, Home Infusion - Transfer Medications Home Medications: Venlafaxine XR (24 HR) [Effexor Xr] 75 mg PO DAILY 07/25/17 [History] BuPROPion XL (24 HR) [Wellbutrin Xl] 300 mg PO DAILY 08/20/17 [History] Loratadine [Allergy Relief] 10 mg PO DAILY 12/11/17 [History] Lipase/Protease/Amylase [Creon Dr 6,000 Units Capsule] 1 cap PO QIDAC 12/28/17 [History] Montelukast [Singulair] 10 mg PO HS 03/08/18 [History] Niacin [Plain Niacin] 500 mg PO DAILY 03/08/18 [History] Ranitidine HCl [[employer]] 150 mg PO BID 03/08/18 [History] Pantoprazole Sodium 40 mg PO BID 08/07/18 [History] Furosemide [Lasix] 20 mg PO DAILY 01/01/19 [History] Ondansetron [Zofran] 8 mg IV Q8HR PRN 01/01/19 [History] Potassium Chloride [Klor-Con 10] 10 meq PO BID 01/01/19 [History] Sucralfate [Carafate] 1 gm PO QIDAC 01/01/19 [History] risperiDONE [RisperDAL] 1 mg PO HS 01/01/19 [History] Cholecalciferol (Vitamin D3) [Vitamin D] 5,000 unit PO DAILY 01/19/19 [History] Ferrous Fumarate [Ferrocite] 324 mg PO DAILY 01/19/19 [History] Nitroglycerin [Nitrostat] 0.4 mg SL Q5M PRN 01/19/19 [History] Polyethylene Glycol 3350 [MiraLAX] 17 gm PO DAILY PRN 01/19/19 [History] Tizanidine HCl 4 mg PO BID PRN 01/19/19 [History] Allergies/Adverse Reactions: Allergy/AdvReac Type Severity Reaction Status Date / Time butalbital [From Fioricet] Allergy Hives Verified 06/01/18 12:46 caffeine [From Fioricet] Allergy Hives Verified 06/01/18 12:46 [place] Allergy Hives Verified 06/01/18 12:46 phenytoin [From Dilantin] Allergy Hives Verified 06/01/18 12:46 methocarbamol [From Robaxin] AdvReac Vomiting Verified 06/01/18 12:46 Certification: Further, I certify that my clinical findings support that this patient is homebound (i.e. absences from home require considerable and taxing effort and are for medical reasons or buddhism services or infrequently or short duration when for other reasons) because: Homebound Reason: Patient requires assistance of a person or device to safely leave home Attestation: My signature below is to certify that this patient is under my care and that I, or nurse practitioner, or a physician's dental hygiene administrative assistant working with me, has a [id number] encounter with this patient.
--- NOTE | 2019-01-25 11:26 | Discharge Summary ---
- NOTES TO OUTPATIENT PROVIDER Notes to Outpatient Provider: f/u with ID within 2 weeks. F/u with PCP within 2 weeks. Orders not resulted at time of discharge: Pending orders 01/19/19 12:52 ECG 12 lead ECG [ECG] Stat 01/20/19 08:52 Vasoactive Intestinal Peptide Routine 01/21/19 14:33 Culture,Blood [BC] Stat 01/21/19 14:38 Culture,Blood [BC] Stat 01/22/19 18:37 Catecholamines,Fractionated Stat Metanephrines, Plasma (Free) Stat 01/23/19 22:09 5-HIAA,Ur [place] or 24hr Routine 01/25/19 IR cvc remov tunnel w prt leasing machine tender [IR] Routine Date of Encounter: 01/26/19 Time of Encounter: 11:21 - Discharge Diagnosis (1) Syncope Priority: Primary Status: Acute Qualifiers: Syncope type: unspecified Qualified Code(s): R55 - Syncope and collapse (2) Fever Priority: Primary Status: Resolved Qualifiers: Fever type: unspecified Qualified Code(s): R50.9 - Fever, unspecified (3) Sepsis Priority: Primary Status: Resolved Qualifiers: Sepsis type: sepsis due to unspecified organism Qualified Code(s): A41.9 - Sepsis, unspecified organism (4) Malabsorption syndrome Priority: Secondary Status: Chronic Qualifiers: Intestinal malabsorption type: unspecified Qualified Code(s): K90.9 - Intestinal malabsorption, unspecified (5) Anxiety and depression Priority: Secondary Status: Chronic (6) Chronic pancreatitis Priority: Secondary Status: Chronic Qualifiers: Pancreatitis type: unspecified pancreatitis type Qualified Code(s): K86.1 - Other chronic pancreatitis (7) Hypertension Priority: Secondary Status: Chronic Qualifiers: Hypertension type: unspecified Qualified Code(s): I10 - Essential (primary) hypertension (8) Orthostatic hypotension Priority: Primary Status: Acute (9) FELIPE (acute kidney injury) Priority: Primary Status: Resolved (10) CHF (congestive heart failure) Priority: Secondary Status: Chronic Qualifiers: Heart failure type: diastolic Heart failure chronicity: chronic Qualified Code(s): I50.32 - Chronic diastolic (congestive) heart failure (11) Iron deficiency anemia Priority: Primary Status: Acute Qualifiers: Iron deficiency anemia type: unspecified iron deficiency Qualified Code(s): D50.9 - Iron deficiency anemia, unspecified (12) Postsurgical dumping syndrome Priority: Primary Status: Acute (13) Infected venous access port Priority: Primary Status: Acute Qualifiers: Encounter type: initial encounter Qualified Code(s): T80.219A - Unspecified infection due to central venous catheter, initial encounter (14) DVT prophylaxis Priority: Primary Status: Acute Hospital course: Ms. Astudillo is a 53 year old female with history of chronic pancreatitis, malabsorption syndrome, CAD/LA, HTN, HLD, CKD, COPD, CVA, GERD, seizure, bipolar, anxiety, depression. Surgical history of gastric bypass and port for infusions. Patient presents for syncope. Patient states that a week ago, she started passing out every time she stood up. Patient states she could feel when she would pass out because she would start feeling weak, her hands would shake, and then her vision would go black. Patient states she passed out 6 times that day. She would be out for 1 minute. Patient states she would know everything thats going on while shes passed out. Patient states she never hit her head or injured any other part of her body with falls because theres always someone there to catch her before she hit anything hard. Because this happened every time she stood up, patient states she had to crawl to the bathroom. Associated symptoms of fatigue, sleeping a lot, generalized weakness, dyspnea on exertion. Admits abdominal pain secondary to chronic pancreatitis, unchanged from baseline. Denies anorexia, weight loss, nausea/vomiting, chest pain, confusion, fever, urinary changes, bowel changes, recent illness. Patient is prescribed Norvasc for HTN but states she doesnt take it because she knows her blood pressure is usually on the low side. Patient was started on Lasix 2 weeks ago for swelling, shes been taking this daily. Denies any recent steroid use. Patient states she doesnt drink water, she drinks Gatorade instead. Lately shes been drinking one 28-oz bottle of Gatorade daily. 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 Patient states she was told it was inoperable. Upon arrival, patient was notable for low blood pressure with systolic BP at 60s. She received IV fluid and home Lasix was discontinued. Her BP normalized after treatment. An orthostatic vital signs was positive. Troponin was negative, EKG has no acute ST-T change, telemetry showed in no ST-T elevation or depression, acute ACS/LA was unlikely. Because of persistent symptomatic syncope, patient was started on fludrocortisone, syncope improved, however, her blood pressure was noted to be elevated, home Lasix was resumed, and she was started on clonidine, BP was controlled. She also has chronic diarrhea since he had a gastric bypass surgery, extensive workup was performed, which revealed an unremarkable CT abdomen/pelvis, normal gastrin level, urine HIAA and the blood VIP results are currently pending. Because of extremely labile blood pressure observed why she was in the hospital, pheochromocytoma was suspected, metanephrine and the catecholamine level was drawn and results were pending currently. After carefully reviewed patient medical record and interview with patient again, patient's symptoms and signs temp be explained by dumping syndrome, a well-known complication for gastric bypass surgery. Self-management of dumping syndrome was discussed with patient. While in the hospital, patient also developed episodes of fever, blood culture was obtained which grows Klebsiella. ID was consulted, patient was placed on IV antibiotics. She had multiple Mediport infection in the past with the same bacteria, ID recommended remove Mediport, IV antibiotics for 6 weeks, replace a new Mediport after blood culture was negative. On the discharge today, patient Mediport has been removed, and new midline was placed. Patient vital signs were stable, afebrile, labs were unremarkable. She is discharged home, she will continue receiving IV antibiotics for 6 more weeks, plan to insert a new Mediport once repeat blood culture was negative after IV abx is completed. She will continue follow-up with PCP, ID, and interventional radiology as scheduled. Discharge discussed with: patient Time spent discussing smoking cessation with patient: more than 10 minutes - Time Spent with Patient Total time spent providing and/or coordinating discharge services: Time spent: Greater than 30 minutes - Discharge Medications Prescriptions: New cefTRIAXone [Rocephin] 2,000 mg IVPB DAILY #42 vial No Action Venlafaxine XR (24 HR) [Effexor Xr] 75 mg PO DAILY Loratadine [Allergy Relief] 10 mg PO DAILY Lipase/Protease/Amylase [[place] 6,000 Units Capsule] 1 cap PO QIDAC Montelukast [Singulair] 10 mg PO HS Niacin [Plain Niacin] 500 mg PO DAILY Ranitidine HCl [Ac[employer]] 150 mg PO BID Pantoprazole Sodium 40 mg PO BID Furosemide [Lasix] 20 mg PO DAILY Ondansetron [Zofran] 8 mg IV Q8HR PRN PRN Reason: NAUSEA/VOMITING Potassium Chloride [Klor-Con 10] 10 meq PO BID risperiDONE [RisperDAL] 1 mg PO HS Sucralfate [Carafate] 1 gm PO QIDAC Ferrous Fumarate [Ferrocite] 324 mg PO DAILY Tizanidine HCl 4 mg PO BID PRN PRN Reason: Muscle Spasm Nitroglycerin [Nitrostat] 0.4 mg SL Q5M PRN PRN Reason: Chest Pain Cholecalciferol (Vitamin D3) [Vitamin D] 5,000 unit PO DAILY Polyethylene Glycol 3350 [MiraLAX] 17 gm PO DAILY PRN PRN Reason: Constipation BuPROPion XL (24 HR) [Wellbutrin Xl] 300 mg PO DAILY Home Medications: Venlafaxine XR (24 HR) [Effexor Xr] 75 mg PO DAILY 07/25/17 [History] BuPROPion XL (24 HR) [Wellbutrin Xl] 300 mg PO DAILY 08/20/17 [History] Loratadine [Allergy Relief] 10 mg PO DAILY 12/11/17 [History] Lipase/Protease/Amylase [Creon Dr 6,000 Units Capsule] 1 cap PO QIDAC 12/28/17 [History] Montelukast [Singulair] 10 mg PO HS 03/08/18 [History] Niacin [Plain Niacin] 500 mg PO DAILY 03/08/18 [History] Ranitidine HCl [[employer] [place]] 150 mg PO BID 03/08/18 [History] Pantoprazole Sodium 40 mg PO BID 08/07/18 [History] Furosemide [Lasix] 20 mg PO DAILY 01/01/19 [History] Ondansetron [Zofran] 8 mg IV Q8HR PRN 01/01/19 [History] Potassium Chloride [Klor-Con 10] 10 meq PO BID 01/01/19 [History] Sucralfate [Carafate] 1 gm PO QIDAC 01/01/19 [History] risperiDONE [RisperDAL] 1 mg PO HS 01/01/19 [History] Cholecalciferol (Vitamin D3) [Vitamin D] 5,000 unit PO DAILY 01/19/19 [History] Ferrous Fumarate [Ferrocite] 324 mg PO DAILY 01/19/19 [History] Nitroglycerin [Nitrostat] 0.4 mg SL Q5M PRN 01/19/19 [History] Polyethylene Glycol 3350 [MiraLAX] 17 gm PO DAILY PRN 01/19/19 [History] Tizanidine HCl 4 mg PO BID PRN 01/19/19 [History] cefTRIAXone [Rocephin] 2,000 mg IVPB DAILY #42 vial 01/25/19 [Rx] Allergies/Adverse Reactions: Allergy/AdvReac Type Severity Reaction Status Date / Time butalbital [From Fioricet] Allergy Hives Verified 06/01/18 12:46 caffeine [From Fioricet] Allergy Hives Verified 06/01/18 12:46 [place] Allergy Hives Verified 06/01/18 12:46 phenytoin [From Dilantin] Allergy Hives Verified 06/01/18 12:46 methocarbamol [From Robaxin] AdvReac Vomiting Verified 06/01/18 12:46 Date of admission: 01/21/19 13:00 Primary care physician: Niecy Albarran Consults: 01/21/19 13:01 Consult to Infectious Diseases [CONS] Routine Consulting Provider: Infectious Disease [place] Reason for Consult: bacteremia Call Completed: Yes 01/25/19 07:31 Consult to Interventional Radiology [CONS] Routine Consulting Provider: Radiology Interventional [place] Reason for Consult: infected mediport removal today replaed a new one tomorrow. Call Completed: Yes Anticipated date of discharge: 01/26/19 - Constitutional Vitals: Temp Pulse Resp BP Pulse Ox 98.2 F 94 20 141/91 94 01/25/19 07:10 01/25/19 07:10 01/25/19 07:10 01/25/19 07:10 01/25/19 07:10 General appearance: Present: cooperative, A&O X 3, obese, answers questions appropriately Exam: Skin: Free of rash and discoloration. Eyes: Sclera is white. There is no discharge from eyes. ENMT: Oral/pharyngeal mucosa is normal in appearance. There is no discharge from nose or ears. Respiratory: Normal breath sounds with no crackles and wheezes bilaterally. CV: Heart is regular with no gallop or murmur. GI: Abdomen is flat and soft with no palpable mass or visceromegaly. : There is no tenderness in patient's flanks bilaterally. Neuro exam: He has good strength in upper and lower extremities. He has normal eye movements. Psychiatric: He has normal affect. His thought process is appropriate to the situation. - Patient Status Disposition: Home Health Service Condition: Fair Functional capacity at discharge: independent ambulation Overall status at discharge: patient is progressing back to baseline - Discharge Instructions Follow Up With: Niecy Albarran CNP [Primary Care Provider] - - Diet and Activity Activity: increase activity as tolerated Diet: advance to your usual diet
[2019-01-25] MEDS ORDERED: *HR* FentaNYL (PF) 100 MCG/2 ML VIAL IVP ONE (11:34)
[2019-01-25] MEDS ORDERED: *HR* Midazolam HCl 2 MG/2 ML VIAL IVP ONE (11:34)
[2019-01-25] MEDS ORDERED: *HR* FentaNYL (PF) 100 MCG/2 ML VIAL ONE (11:43)
[2019-01-25] MEDS ORDERED: *HR* Midazolam HCl 2 MG/2 ML VIAL ONE (11:43)
[2019-01-25] MEDS: risperiDONE 1 MG TABLET PO SCH (19:56)
[2019-01-26] MEDS: *HR* Heparin 5,000 UNIT/ML VIAL SQ SCH (06:20)
[2019-01-26] MEDS: Sucralfate 1 GM TABLET PO SCH (06:21)
[2019-01-26 07:53] VITALS: BP 154/92
[2019-01-26] MEDS: Furosemide 20 MG TABLET PO SCH (08:30)
[2019-01-26] MEDS: Famotidine 20 MG TABLET PO SCH (08:30)
[2019-01-26] MEDS: BuPROPion XL (24 HR) 150 MG TABLET PO SCH (08:30)
[2019-01-26] MEDS: Cholecalciferol (D-3) 1,000 UNIT TABLET PO SCH (08:30)
[2019-01-26] MEDS: cloNIDine HCl 0.1 MG TABLET PO SCH (08:30)
[2019-01-26] MEDS: Niacin (24 HR) 500 MG TAB.ER.24H PO SCH (08:30)
[2019-01-26] MEDS: Loratadine 10 MG TABLET PO SCH (08:31)
[2019-01-26] MEDS: Multivit/Ca/Min/Fe/FA 1 TAB TABLET PO SCH (08:31)
[2019-01-26] MEDS: cefTRIAXone 2,000 MG in Water for inj. (sterile) 20 ML 20 ML IVP SCH (10:54)
[2019-01-26] MEDS: Ondansetron 4 MG/2 ML VIAL IVP PRN (10:55)
[2019-01-26 17:26] LABS: Metanephrine, Plasma 0.24 nmol/L (0.00-0.49)
== END 2019-01-26 14:18 | disposition home health service (06) | DRG 721 ==
LOC: EMEROOARM 15:50 → 3BNU 15:50
PROVIDERS: ADMIT Student in an Organized Health Care Education/Training Program; ATTEND Student in an Organized Health Care Education/Training Program

== ENCOUNTER 2019-06-28 07:39 | Observation (INO) ==
[2019-06-28] MEDS ORDERED: *HR* FentaNYL (PF) 100 MCG/2 ML VIAL IVP ONE (07:43)
[2019-06-28] MEDS ORDERED: 0.9 % Sodium Chloride 1,000 ML IVC ONE (07:43)
[2019-06-28] MEDS ORDERED: Promethazine 12.5 MG in 0.9 % Sodium Chloride 50 ML IVPB ONE (07:44)
[2019-06-28 08:30] LABS: Albumin 4.7 g/dL (3.5-5.7); Albumin/Globulin Ratio 1.3 (1.1-2.2); Bilirubin,Total 0.6 mg/dL (0.3-1.0); Globulin 3.6 g/dL (2.4-3.5); Potassium 3.7 mEq/L (3.5-5.1); Total Protein 8.3 g/dL (6.4-8.9)
[2019-06-28] MEDS ORDERED: *HR* Promethazine 25 MG/ML VIAL IVP ONE (08:34)
[2019-06-28 08:44] LABS: Basophils % 0.1 %; Hematocrit 36.4 % (35.3-44.9); Hemoglobin 11.7 g/dL (11.5-15.4); Immature Granulocytes % 0.5 % (0-4); Lymphocytes # 0.6 K/mcL (0.6-4.6); Lymphocytes % 3.6 %; Mean Corpuscular HGB Conc 32.1 g/dL (31.6-35.5); Mean Corpuscular Hemoglobin 29.1 pg (28.0-33.3); Mean Corpuscular Volume 90.5 fL (83.0-100.0); Mean Platelet Volume 8.8 fL (9.4-12.4); Monocytes # 0.5 K/mcL (0.0-1.3); Monocytes % 3.2 %; Neutrophils # 15.5 K/mcL (1.6-8.9); Platelet Count 459 K/mcL (140-400); Red Blood Count 4.02 M/mcL (3.82-4.97); Red Cell Distribution Width 17.8 % (11.5-14.5); Segmented Neutrophils % 92.6 %; White Blood Count 16.7 K/mcL (4.3-11.1)
[2019-06-28] MEDS ORDERED: Ketorolac 15 MG/ML VIAL IVP ONE (08:54)
[2019-06-28] MEDS ORDERED: Ondansetron 4 MG/2 ML VIAL IVP ONE ×2 (10:01→11:21)
[2019-06-28] MEDS ORDERED: Naloxone 0.4 MG/ML INJ IVP PRN (11:09)
[2019-06-28] MEDS ORDERED: *HR* Labetalol 20 MG/4 ML SYRINGE IVP ONE (12:21)
[2019-06-28] MEDS ORDERED: Metoclopramide 10 MG/2 ML VIAL IVP ONE (12:24)
[2019-06-28] MEDS ORDERED: Acetaminophen 325 MG TABLET PO PRN (12:40)
[2019-06-28] MEDS: tiZANidine 4 MG TABLET PO PRN ×3 (13:20→21:27)
[2019-06-28] MEDS: Ringers Solution, Lactated 1,000 ML IVC SCH (14:00)
[2019-06-28] MEDS: Prochlorperazine 10 MG/2 ML VIAL IVP PRN (18:31)
[2019-06-28] MEDS: *HR* Heparin 5,000 UNIT/ML VIAL SQ SCH (18:33)
[2019-06-29] MEDS: Ondansetron 4 MG/2 ML VIAL IVP PRN ×2 (03:26→22:47)
[2019-06-29 03:50] LABS: Calcium 9.1 mg/dL (8.6-10.3); Potassium 3.7 mEq/L (3.5-5.1)
[2019-06-29 03:51] LABS: Basophils # 0.1 K/mcL (0.0-0.2); Basophils % 0.5 %; Hematocrit 34.4 % (35.3-44.9); Hemoglobin 11.2 g/dL (11.5-15.4); Immature Platelets 1.6 % (1.1-6.1); Lymphocytes # 2.4 K/mcL (0.6-4.6); Lymphocytes % 21.5 %; Mean Corpuscular HGB Conc 32.6 g/dL (31.6-35.5); Mean Corpuscular Hemoglobin 29.8 pg (28.0-33.3); Mean Corpuscular Volume 91.5 fL (83.0-100.0); Mean Platelet Volume 8.9 fL (9.4-12.4); Monocytes # 0.8 K/mcL (0.0-1.3); Monocytes % 6.9 %; Neutrophils # 7.7 K/mcL (1.6-8.9); Platelet Count 392 K/mcL (140-400); Red Blood Count 3.76 M/mcL (3.82-4.97); Red Cell Distribution Width 18.1 % (11.5-14.5); Segmented Neutrophils % 70.1 %
[2019-06-29 04:52] LABS: Bacteria,Urine Few per hpf (None-Few); Clarity,Urine Clear (Clear); Hyaline Casts,Urine None Seen per lpf (None-Few); Protein,Urine Trace mg/dL (Neg-Trace); RBC,Urine 0-3 per hpf (0-3); Specific Gravity,Urine 1.017 (1.010-1.025); Squamous Epithelial Cell,Urine Many per lpf (None-Few); Urobilinogen,Urine Normal (Normal)
[2019-06-29 04:54] LABS: Bilirubin,Urine Negative (Negative); Blood,Urine Negative (Negative); Color,Urine Yellow (Yellow); Glucose,Urine (UA) Normal (Normal); Ketones,Urine Negative (Negative); Leukocyte Esterase,Urine Negative (Negative); Nitrite,Urine Negative (Negative)
[2019-06-29] MEDS: Ringers Solution, Lactated 1,000 ML IVC SCH (05:09)
[2019-06-29] MEDS: *HR* Heparin 5,000 UNIT/ML VIAL SQ SCH (05:10)
[2019-06-29] MEDS: tiZANidine 4 MG TABLET PO PRN (06:33)
[2019-06-29] MEDS: Venlafaxine XR (24 HR) 37.5 MG CAP.ER.24H PO SCH (08:26)
[2019-06-29] MEDS: Loratadine 10 MG TABLET PO SCH (08:26)
[2019-06-29] MEDS: BuPROPion XL (24 HR) 150 MG TABLET PO SCH (08:26)
[2019-06-29] MEDS: Prochlorperazine 10 MG/2 ML VIAL IVP PRN (08:26)
[2019-06-29] MEDS: Niacin (24 HR) 500 MG TAB.ER.24H PO SCH (08:27)
[2019-06-29] MEDS ORDERED: *HR* Metoprolol 5 MG/5 ML VIAL IVP PRN ×2 (09:38→16:15)
[2019-06-29] MEDS ORDERED: Lidocaine -MPF 2% 2 ML VIAL ONE (12:35)
[2019-06-29] MEDS ORDERED: *HR* Propofol 200 MG/20 ML VIAL IVP ONE ×2 (12:35→13:10)
[2019-06-29] MEDS ORDERED: *HR* Metoprolol 5 MG/5 ML VIAL IVP ONE (13:03)
[2019-06-29] MEDS ORDERED: Ondansetron 4 MG/2 ML VIAL ONE (13:03)
[2019-06-29] MEDS ORDERED: *HR* Midazolam HCl 2 MG/2 ML VIAL ONE (13:10)
[2019-06-29] MEDS ORDERED: Ringers Solution, Lactated 500 ML IVC SCH (13:15)
[2019-06-29 15:02] LABS: Hemoglobin 10.5 g/dL (11.5-15.4)
[2019-06-29] MEDS: Pantoprazole 40 MG VIAL IVP SCH (17:50)
[2019-06-30] MEDS: Pantoprazole 40 MG VIAL IVP SCH ×2 (04:11→16:52)
[2019-06-30] MEDS: tiZANidine 4 MG TABLET PO PRN ×2 (04:11→15:17)
[2019-06-30 04:31] LABS: Basophils # 0.1 K/mcL (0.0-0.2); Basophils % 0.7 %; Eosinophils # 0.1 K/mcL (0.0-0.6); Eosinophils % 1.3 %; Hematocrit 30.3 % (35.3-44.9); Hemoglobin 9.5 g/dL (11.5-15.4); Immature Granulocytes % 0.3 % (0-4); Lymphocytes # 1.9 K/mcL (0.6-4.6); Lymphocytes % 27.4 %; Mean Corpuscular HGB Conc 31.4 g/dL (31.6-35.5); Mean Corpuscular Hemoglobin 29.5 pg (28.0-33.3); Mean Corpuscular Volume 94.1 fL (83.0-100.0); Mean Platelet Volume 8.8 fL (9.4-12.4); Monocytes # 0.5 K/mcL (0.0-1.3); Monocytes % 6.5 %; Neutrophils # 4.4 K/mcL (1.6-8.9); Platelet Count 275 K/mcL (140-400); Red Blood Count 3.22 M/mcL (3.82-4.97); Red Cell Distribution Width 17.9 % (11.5-14.5); Segmented Neutrophils % 63.8 %
[2019-06-30 04:37] LABS: White Blood Count 6.9 K/mcL (4.3-11.1)
[2019-06-30 04:47] LABS: BUN/Creatinine Ratio 7 (6-26); Blood Urea Nitrogen 7 mg/dL (6-20); Calcium 8.3 mg/dL (8.6-10.3); Carbon Dioxide 27 mEq/L (23-29); Chloride 104 mEq/L (98-107); Glucose 117 mg/dL (70-105); Osmolality,Calculated 285 (280-300); Potassium 3.7 mEq/L (3.5-5.1); Sodium 138 mEq/L (136-145); eGFR For African Americans > 60 (> 60); eGFR For Non-African Americans > 60 (> 60)
[2019-06-30] MEDS: BuPROPion XL (24 HR) 150 MG TABLET PO SCH (09:21)
[2019-06-30] MEDS: Venlafaxine XR (24 HR) 37.5 MG CAP.ER.24H PO SCH (09:21)
[2019-06-30] MEDS: Niacin (24 HR) 500 MG TAB.ER.24H PO SCH (09:21)
[2019-06-30] MEDS: Loratadine 10 MG TABLET PO SCH (09:21)
[2019-06-30] MEDS: Ondansetron 4 MG/2 ML VIAL IVP PRN ×2 (09:22→21:19)
[2019-06-30 15:05] LABS: Hematocrit 33.2 % (35.3-44.9); Hemoglobin 10.4 g/dL (11.5-15.4)
[2019-07-01] MEDS: tiZANidine 4 MG TABLET PO PRN (03:33)
[2019-07-01] MEDS: Pantoprazole 40 MG VIAL IVP SCH (05:32)
[2019-07-01 06:29] VITALS: BP 143/93
[2019-07-01] MEDS: Venlafaxine XR (24 HR) 37.5 MG CAP.ER.24H PO SCH (07:53)
[2019-07-01] MEDS: Loratadine 10 MG TABLET PO SCH (07:53)
[2019-07-01] MEDS: Niacin (24 HR) 500 MG TAB.ER.24H PO SCH (07:53)
[2019-07-01] MEDS: BuPROPion XL (24 HR) 150 MG TABLET PO SCH (07:58)
[2019-07-01] MEDS: Ondansetron 4 MG/2 ML VIAL IVP PRN (07:59)
== END 2019-07-01 11:32 | disposition home or self-care (01) ==
LOC: 3ANU 07:39 → EMEROOARM 07:39 → SUATTDRO 11:23 → 3ANU 12:08
PROVIDERS: ADMIT Internal Medicine; ATTEND Student in an Organized Health Care Education/Training Program
PROC: ENDOEBX (2019-06-29 13:30)

== ENCOUNTER 2019-12-07 20:36 | Inpatient (IN) ==
[2019-12-07] MEDS ORDERED: Acetaminophen 325 MG TABLET PO PRN (22:34)
[2019-12-07] MEDS ORDERED: Naloxone 0.4 MG/ML INJ IVP PRN (22:34)
[2019-12-07] MEDS ORDERED: Ipratropium/Albuterol Neb 3 ML IH PRN (22:38)
[2019-12-07] MEDS ORDERED: Potassium Chloride 40 MEQ, Lidocaine 1% 2 ML in 0.9 % Sodium Chloride 500 ML IVPB ONE (23:15)
[2019-12-07] MEDS: Azithromycin 500 MG in 0.9 % Sodium Chloride 250 ML IVPB SCH (23:35)
[2019-12-07] MEDS: Ondansetron 4 MG/2 ML VIAL IVP PRN (23:40)
[2019-12-08] MEDS: *HR* HYDROmorphone 2 MG/ML SYRINGE IVP PRN ×7 (00:13→23:49)
[2019-12-08] MEDS: *HR* Metoprolol 5 MG/5 ML VIAL IVP SCH ×5 (00:14→22:52)
[2019-12-08] MEDS ORDERED: 0.9 % Sodium Chloride 1,000 ML ONE (00:33)
[2019-12-08 01:13] LABS: Alanine Aminotransferase 22 Units/L (7-52); Albumin 3.8 g/dL (3.5-5.7); Albumin/Globulin Ratio 1.2 (1.1-2.2); Alkaline Phosphatase 105 Units/L (34-104); Aspartate Amino Transferase 37 Units/L (13-39); BUN/Creatinine Ratio 7 (6-26); Bilirubin,Total 0.5 mg/dL (0.3-1.0); Blood Urea Nitrogen 7 mg/dL (6-20); Calcium 8.9 mg/dL (8.6-10.3); Carbon Dioxide 21 mEq/L (23-29); Chloride 110 mEq/L (98-107); Cholesterol 210 mg/dL (< 200); Globulin 3.3 g/dL (2.4-3.5); Glucose 139 mg/dL (70-105); HDL Cholesterol 53 mg/dL (40-59); LDL Cholesterol,Calculated 127 mg/dL (0-99); Lipase 92 Units/L (11-82); Magnesium 1.9 mg/dL (1.6-2.6); Osmolality,Calculated 290 (280-300); Potassium 3.4 mEq/L (3.5-5.1); Sodium 140 mEq/L (136-145); Total Protein 7.1 g/dL (6.4-8.9); Triglycerides 148 mg/dL (< 150); eGFR For African Americans > 60 (> 60); eGFR For Non-African Americans 54 (> 60)
[2019-12-08 01:14] LABS: Basophils # 0.1 K/mcL (0.0-0.2); Basophils % 0.4 %; Eosinophils % 0.2 %; Hematocrit 37.6 % (35.3-44.9); Hemoglobin 11.8 g/dL (11.5-15.4); Immature Granulocytes % 0.5 % (0-4); Lymphocytes # 1.2 K/mcL (0.6-4.6); Lymphocytes % 6.1 %; Mean Corpuscular HGB Conc 31.4 g/dL (31.6-35.5); Mean Corpuscular Hemoglobin 30.3 pg (28.0-33.3); Mean Corpuscular Volume 96.4 fL (83.0-100.0); Mean Platelet Volume 9.4 fL (9.4-12.4); Monocytes # 0.7 K/mcL (0.0-1.3); Monocytes % 3.6 %; Neutrophils # 16.7 K/mcL (1.6-8.9); Platelet Count 427 K/mcL (140-400); Red Cell Distribution Width 15.9 % (11.5-14.5); Segmented Neutrophils % 89.2 %; White Blood Count 18.7 K/mcL (4.3-11.1)
[2019-12-08 01:25] LABS: Adenovirus Not Detected (Not Detect); Coronavirus 229E Not Detected (Not Detect); Coronavirus HKU1 Not Detected (Not Detect); Coronavirus NL63 Not Detected (Not Detect); Coronavirus OC43 Not Detected (Not Detect); Human Metapneumovirus Not Detected (Not Detect)
[2019-12-08 01:26] LABS: Bordetella Pertussis Not Detected (Not Detect); Chlamydophila pneumoniae Not Detected (Not Detect); Human Rhinovirus/Enterovirus Not Detected (Not Detect); Influenza A Subtype 2009 H1 Not Detected (Not Detect); Influenza B Not Detected (Not Detect); Mycoplasma pneumoniae Not Detected (Not Detect); Parainfluenza Virus 1 Not Detected (Not Detect); Parainfluenza Virus 2 Not Detected (Not Detect); Parainfluenza Virus 3 Not Detected (Not Detect); Parainfluenza Virus 4 Not Detected (Not Detect); Respiratory Syncytial Virus Not Detected (Not Detect)
[2019-12-08] MEDS: *HR* Heparin 5,000 UNIT/ML VIAL SQ SCH ×4 (01:36→22:52)
[2019-12-08] MEDS ORDERED: *HR* Metoprolol 5 MG/5 ML VIAL IVP ONE (01:42)
[2019-12-08] MEDS ORDERED: Nitroglycerin 1 INCH/GM PACKET TP SCH ×2 (02:00→02:15)
[2019-12-08] MEDS: Ondansetron 4 MG/2 ML VIAL IVP PRN (07:34)
[2019-12-08] MEDS: Pantoprazole 40 MG VIAL IVP SCH (08:05)
[2019-12-08] MEDS: Venlafaxine XR (24 HR) 37.5 MG CAP.ER.24H PO SCH (08:44)
[2019-12-08] MEDS: BuPROPion XL (24 HR) 150 MG TABLET PO SCH (08:47)
[2019-12-08] MEDS ORDERED: Metoprolol XL (24 HR) Succ 25 MG TAB.ER.24H PO SCH (09:00)
[2019-12-08] MEDS ORDERED: Ringers Solution, Lactated 1,000 ML IVC SCH (09:15)
[2019-12-08] MEDS ORDERED: amLODIPine 5 MG TABLET PO SCH (11:30)
[2019-12-08 12:04] LABS: Bilirubin,Urine Negative (Negative); Blood,Urine Negative (Negative); Clarity,Urine Clear (Clear); Color,Urine Yellow (Yellow); Glucose,Urine (UA) Normal (Normal); Ketones,Urine Negative (Negative); Leukocyte Esterase,Urine Negative (Negative); Nitrite,Urine Negative (Negative); Protein,Urine Negative (Neg-Trace); Specific Gravity,Urine 1.012 (1.010-1.025); Urobilinogen,Urine Normal (Normal)
[2019-12-08] MEDS ORDERED: Metoprolol XL (24 HR) Succ 50 MG TAB.ER.24H PO ONE (13:56)
[2019-12-08] MEDS: tiZANidine 4 MG TABLET PO PRN ×2 (14:25→20:07)
[2019-12-08] MEDS: Azithromycin 500 MG in 0.9 % Sodium Chloride 250 ML IVPB SCH (22:52)
[2019-12-09] MEDS: *HR* Metoprolol 5 MG/5 ML VIAL IVP SCH ×2 (04:03→11:09)
[2019-12-09] MEDS: *HR* HYDROmorphone 2 MG/ML SYRINGE IVP PRN ×2 (04:04→09:09)
[2019-12-09] MEDS: *HR* Heparin 5,000 UNIT/ML VIAL SQ SCH (04:06)
[2019-12-09 04:33] LABS: Basophils % 0.1 %; Eosinophils % 0.1 %; Hematocrit 31.8 % (35.3-44.9); Immature Granulocytes % 0.7 % (0-4); Lymphocytes # 1.7 K/mcL (0.6-4.6); Lymphocytes % 10.8 %; Mean Corpuscular HGB Conc 31.8 g/dL (31.6-35.5); Mean Corpuscular Hemoglobin 30.8 pg (28.0-33.3); Mean Platelet Volume 8.8 fL (9.4-12.4); Monocytes # 0.8 K/mcL (0.0-1.3); Monocytes % 5.1 %; Neutrophils # 13.1 K/mcL (1.6-8.9); Platelet Count 308 K/mcL (140-400); Red Blood Count 3.28 M/mcL (3.82-4.97); Red Cell Distribution Width 16.2 % (11.5-14.5); Segmented Neutrophils % 83.2 %; White Blood Count 15.7 K/mcL (4.3-11.1)
[2019-12-09 04:36] LABS: Hemoglobin 10.1 g/dL (11.5-15.4)
[2019-12-09 04:55] LABS: BUN/Creatinine Ratio 8 (6-26); Blood Urea Nitrogen 6 mg/dL (6-20); Calcium 8.9 mg/dL (8.6-10.3); Carbon Dioxide 27 mEq/L (23-29); Chloride 108 mEq/L (98-107); Glucose 104 mg/dL (70-105); Magnesium 1.9 mg/dL (1.6-2.6); Osmolality,Calculated 290 (280-300); Phosphorous 2.8 mg/dL (2.7-4.5); Potassium 3.4 mEq/L (3.5-5.1); Sodium 141 mEq/L (136-145); eGFR For African Americans > 60 (> 60); eGFR For Non-African Americans > 60 (> 60)
[2019-12-09] MEDS ORDERED: Metoprolol XL (24 HR) Succ 25 MG TAB.ER.24H PO SCH (09:00)
[2019-12-09] MEDS ORDERED: amLODIPine 5 MG TABLET PO SCH (09:00)
[2019-12-09] MEDS ORDERED: lisinopriL 20 MG TABLET PO SCH (09:00)
[2019-12-09] MEDS: BuPROPion XL (24 HR) 150 MG TABLET PO SCH (09:10)
[2019-12-09] MEDS: Pantoprazole 40 MG VIAL IVP SCH (09:11)
[2019-12-09] MEDS: Venlafaxine XR (24 HR) 37.5 MG CAP.ER.24H PO SCH (09:11)
[2019-12-09 10:51] VITALS: BP 152/93
== END 2019-12-09 14:41 | disposition home or self-care (01) ==
LOC: 2NNU → SUATTDRO 22:34 → 3ANU 12-09 10:43
PROVIDERS: ADMIT Internal Medicine; ATTEND Internal Medicine

== ENCOUNTER 2022-02-04 09:49 | Observation (INO) ==
[2022-02-04] MEDS ORDERED: CeFAZolin Syr 2,000MG/20 ML 2,000 MG/20 ML SYRINGE IVPB ONE (09:59)
[2022-02-04] MEDS ORDERED: Ringers Solution, Lactated 1,000 ML IVC SCH (10:00)
[2022-02-04] MEDS ORDERED: *HR* Midazolam HCl 2 MG/2 ML VIAL ONE (10:06)
[2022-02-04] MEDS ORDERED: ROPIVACAINE/PF/NS 0.25% 1 EACH SYRINGE INTRAART ONE (10:07)
[2022-02-04] MEDS ORDERED: *HR* FentaNYL (PF) 100 MCG/2 ML VIAL ONE ×3 (10:07→15:08)
[2022-02-04] MEDS ORDERED: Ropivacaine/PF 0.5% 30 ML VIAL ONE (10:07)
[2022-02-04 10:29] LABS: Basophils # 0.1 K/mcL (0.0-0.2); Basophils % 0.6 %; Eosinophils # 0.3 K/mcL (0.0-0.6); Eosinophils % 3.1 %; Hematocrit 38.6 % (35.3-44.9); Hemoglobin 13.2 g/dL (11.5-15.4); Immature Granulocytes % 0.3 % (0-4); Lymphocytes # 1.8 K/mcL (0.6-4.6); Lymphocytes % 19.8 %; Mean Corpuscular HGB Conc 34.2 g/dL (31.6-35.5); Mean Corpuscular Hemoglobin 31.7 pg (28.0-33.3); Mean Corpuscular Volume 92.6 fL (83.0-100.0); Mean Platelet Volume 9.2 fL (9.4-12.4); Monocytes # 0.6 K/mcL (0.0-1.3); Monocytes % 6.5 %; Neutrophils # 6.5 K/mcL (1.6-8.9); Platelet Count 319 K/mcL (140-400); Red Blood Count 4.17 M/mcL (3.82-4.97); Red Cell Distribution Width 14.9 % (11.5-14.5); Segmented Neutrophils % 69.7 %; White Blood Count 9.3 K/mcL (4.3-11.1)
[2022-02-04] MEDS ORDERED: Famotidine 20 MG TABLET PO ONE (10:50)
[2022-02-04 10:52] LABS: BUN/Creatinine Ratio 13 (6-26); Blood Urea Nitrogen 13 mg/dL (6-20); Calcium 9.5 mg/dL (8.6-10.3); Carbon Dioxide 26 mEq/L (23-29); Chloride 100 mEq/L (98-107); Glucose 138 mg/dL (70-105); Osmolality,Calculated 278 (280-300); Potassium 4.2 mEq/L (3.5-5.1); Sodium 133 mEq/L (136-145); eGFR For African Americans > 60 (> 60); eGFR For Non-African Americans 58 (> 60)
[2022-02-04] MEDS ORDERED: *HR* OxyCODONE Immed Rel 5 MG TABLET PO PRN (11:19)
[2022-02-04] MEDS ORDERED: Ketorolac 30 MG/ML VIAL IVP PRN (11:19)
[2022-02-04] MEDS ORDERED: Ondansetron 4 MG/2 ML VIAL IVP PRN (11:19)
[2022-02-04 11:31] LABS: INR 1.1; Prothrombin Time 12.5 Seconds (9.4-12.1)
[2022-02-04] MEDS ORDERED: Ondansetron 4 MG/2 ML VIAL ONE (11:57)
[2022-02-04] MEDS ORDERED: Lidocaine -MPF 2% 2 ML VIAL ONE ×2 (11:57→15:00)
[2022-02-04] MEDS ORDERED: *HR* Propofol 200 MG/20 ML VIAL IVP ONE ×2 (11:58→14:58)
[2022-02-04] MEDS ORDERED: Tranexamic Acid 1,000 MG/10 ML VIAL ONE ×2 (12:45→14:42)
[2022-02-04] MEDS ORDERED: EPHEDrine 50 MG/ML VIAL ONE (12:46)
[2022-02-04] MEDS ORDERED: TOTAL JOINT MIXTURE (100ML) INTRAART ONE (13:00)
[2022-02-04] MEDS ORDERED: *HR* Magnesium Sulfate 1 GM/2 ML VIAL ONE (14:52)
[2022-02-04] MEDS ORDERED: *HR* HYDROMORPHONE 2 MG/ML VIAL ONE (15:23)
[2022-02-04] MEDS ORDERED: Ketamine HCL *QUVA* 50mg (1mL) SYRINGE ONE (15:34)
[2022-02-04] MEDS ORDERED: *HR* Metoprolol 5 MG/5 ML VIAL IVP ONE (15:49)
[2022-02-04] MEDS ORDERED: Pregabalin 75 MG CAPSULE PO ONE (16:10)
[2022-02-04] MEDS ORDERED: tiZANidine 4 MG TABLET PO ONE (16:10)
[2022-02-04] MEDS ORDERED: Acetaminophen IV 1,000 MG/100 ML BAG IVPB ONE (16:13)
[2022-02-04] MEDS ORDERED: *HR* HYDROmorphone 2 MG/ML SYRINGE IVP ONE (16:20)
[2022-02-04] MEDS ORDERED: *HR* HYDROmorphone PF 0.5 MG/0.5 ML SYRINGE IVP ONE (16:30)
[2022-02-04] MEDS ORDERED: Naloxone 0.4 MG/ML INJ IVP PRN (17:54)
[2022-02-04] MEDS ORDERED: *HR* Promethazine 25 MG/ML VIAL IM PRN (17:54)
[2022-02-04] MEDS ORDERED: Nitroglycerin 0.4 MG TAB.SUBL SL PRN (17:54)
[2022-02-04] MEDS ORDERED: MOM Conc 10 ML UD.LIQ PO PRN (17:54)
[2022-02-04] MEDS ORDERED: Sennosides 8.6 MG TABLET PO PRN (17:54)
[2022-02-04] MEDS: Ascorbic Acid 500 MG TABLET PO SCH (18:40)
[2022-02-04] MEDS: Ringers Solution, Lactated 1,000 ML IVC SCH (18:41)
[2022-02-04] MEDS: *HR* OxyCODONE Immed Rel 5 MG TABLET PO PRN (19:51)
[2022-02-04] MEDS: Ketorolac 30 MG/ML VIAL IVP PRN (21:47)
[2022-02-04] MEDS: Ondansetron 4 MG/2 ML VIAL IVP PRN (21:53)
[2022-02-04] MEDS: tiZANidine 4 MG TABLET PO PRN (23:10)
[2022-02-05] MEDS: CeFAZolin 2 GM/120 ML BAG IVPB SCH ×3 (00:08→15:21)
[2022-02-05] MEDS: *HR* OxyCODONE Immed Rel 5 MG TABLET PO PRN ×4 (00:09→16:38)
[2022-02-05] MEDS: *HR* Labetalol 20 MG/4 ML SYRINGE IVP PRN ×2 (00:35→18:22)
[2022-02-05] MEDS ORDERED: *HR* OxyCODONE Immed Rel 5 MG TABLET PO ONE (03:50)
[2022-02-05] MEDS: Ketorolac 30 MG/ML VIAL IVP PRN (04:19)
[2022-02-05 05:17] LABS: Basophils % 0.1 %; Hematocrit 37.6 % (35.3-44.9); Hemoglobin 12.4 g/dL (11.5-15.4); Immature Granulocytes % 0.6 % (0-4); Lymphocytes # 0.9 K/mcL (0.6-4.6); Lymphocytes % 5.9 %; Mean Corpuscular Hemoglobin 30.8 pg (28.0-33.3); Mean Corpuscular Volume 93.5 fL (83.0-100.0); Mean Platelet Volume 9.4 fL (9.4-12.4); Monocytes # 0.3 K/mcL (0.0-1.3); Monocytes % 1.8 %; Neutrophils # 14.7 K/mcL (1.6-8.9); Platelet Count 354 K/mcL (140-400); Red Blood Count 4.02 M/mcL (3.82-4.97); Red Cell Distribution Width 15.4 % (11.5-14.5); Segmented Neutrophils % 91.6 %
[2022-02-05 05:35] LABS: BUN/Creatinine Ratio 13 (6-26); Blood Urea Nitrogen 14 mg/dL (6-20); Calcium 9.3 mg/dL (8.6-10.3); Carbon Dioxide 24 mEq/L (23-29); Chloride 99 mEq/L (98-107); Glucose 196 mg/dL (70-105); Osmolality,Calculated 284 (280-300); Potassium 4.6 mEq/L (3.5-5.1); Sodium 134 mEq/L (136-145); eGFR For African Americans > 60 (> 60); eGFR For Non-African Americans 54 (> 60)
[2022-02-05] MEDS: Loratadine 10 MG TABLET PO SCH (07:58)
[2022-02-05] MEDS: Multivit/Ca/Min/Fe/FA 1 TAB TABLET PO SCH (07:58)
[2022-02-05] MEDS: Ascorbic Acid 500 MG TABLET PO SCH ×2 (07:58→16:34)
[2022-02-05] MEDS: Furosemide 20 MG TABLET PO SCH (07:58)
[2022-02-05] MEDS: Ondansetron 4 MG/2 ML VIAL IVP PRN ×2 (09:50→17:44)
[2022-02-05] MEDS: Aspirin Enteric Coated 81 MG Tablet PO SCH (11:12)
[2022-02-05] MEDS: tiZANidine 4 MG TABLET PO PRN ×2 (11:13→23:26)
[2022-02-05] MEDS ORDERED: *HR* HYDROmorphone 2 MG/ML SYRINGE IVP ONE (15:40)
[2022-02-05] MEDS: Ketorolac 30 MG/ML VIAL IVP SCH ×2 (17:44→23:26)
[2022-02-05] MEDS ORDERED: amLODIPine 5 MG TABLET PO SCH (17:45)
[2022-02-05] MEDS ORDERED: carvediloL 6.25 MG TABLET PO SCH (17:49)
[2022-02-05] MEDS ORDERED: Scopolamine Patch 1.5 MG PATCH.TD72 TD SCH (19:45)
[2022-02-05] MEDS: *HR* Promethazine 25 MG/ML VIAL IM PRN (20:18)
[2022-02-05 20:48] LABS: Albumin 4.4 g/dL (3.5-5.7); Albumin/Globulin Ratio 1.3 (1.1-2.2); Bilirubin,Direct 0.2 mg/dL (0.0-0.2); Bilirubin,Indirect 0.5 mg/dL (0.0-1.0); Bilirubin,Total 0.7 mg/dL (0.3-1.0); Globulin 3.4 g/dL (2.4-3.5); Total Protein 7.8 g/dL (6.4-8.9)
[2022-02-05] MEDS: *HR* HYDROmorphone (PF) 1 MG/ML SYRINGE IVP PRN (21:24)
[2022-02-05] MEDS ORDERED: Prochlorperazine 10 MG/2 ML VIAL IVP ONE (22:38)
[2022-02-05] MEDS: Ringers Solution, Lactated 1,000 ML IVC SCH (23:26)
[2022-02-06] MEDS: Acetaminophen IV 1,000 MG/100 ML BAG IVPB SCH ×3 (00:26→16:38)
[2022-02-06] MEDS: *HR* OxyCODONE Immed Rel 5 MG TABLET PO PRN ×4 (00:35→22:18)
[2022-02-06] MEDS: CeFAZolin 2 GM/120 ML BAG IVPB SCH ×3 (00:36→16:38)
[2022-02-06 01:24] LABS: Amphetamine Screen,Urine Negative ng/mL (Cutoff=1000); Barbiturate Screen,Urine Negative ng/mL (Cutoff=200); Benzodiazepines Screen,Urine Positive ng/mL (Cutoff=200); Cannabinoid Screen,Urine Negative ng/mL (Cutoff = 50); Cocaine Screen,Urine Negative ng/mL (Cutoff= 300); Opiate Screen,Urine Positive ng/mL (Cutoff=300); Phencyclidine Screen,Urine Negative ng/mL (Cutoff=25)
[2022-02-06] MEDS ORDERED: Prochlorperazine 10 MG/2 ML VIAL IVP PRN ×2 (03:03→15:30)
[2022-02-06] MEDS: *HR* HYDROmorphone (PF) 1 MG/ML SYRINGE IVP PRN ×2 (03:33→19:24)
[2022-02-06 05:29] LABS: Basophils % 0.1 %; Hematocrit 41.9 % (35.3-44.9); Hemoglobin 13.8 g/dL (11.5-15.4); Immature Granulocytes % 0.4 % (0-4); Lymphocytes # 2.3 K/mcL (0.6-4.6); Lymphocytes % 12.9 %; Mean Corpuscular HGB Conc 32.9 g/dL (31.6-35.5); Mean Corpuscular Hemoglobin 31.2 pg (28.0-33.3); Mean Corpuscular Volume 94.6 fL (83.0-100.0); Mean Platelet Volume 10.2 fL (9.4-12.4); Monocytes # 2.1 K/mcL (0.0-1.3); Monocytes % 11.4 %; Neutrophils # 13.6 K/mcL (1.6-8.9); Platelet Count 373 K/mcL (140-400); Red Blood Count 4.43 M/mcL (3.82-4.97); Red Cell Distribution Width 16.2 % (11.5-14.5); Segmented Neutrophils % 75.2 %
[2022-02-06] MEDS: Ketorolac 30 MG/ML VIAL IVP SCH ×2 (05:48→12:02)
[2022-02-06] MEDS: *HR* Labetalol 20 MG/4 ML SYRINGE IVP PRN ×3 (05:58→13:01)
[2022-02-06] MEDS ORDERED: Morphine Sulfate 2 MG/ML SYRINGE IVP ONE (06:44)
[2022-02-06] MEDS ORDERED: carvediloL 6.25 MG TABLET PO SCH (08:00)
[2022-02-06 08:31] LABS: Amylase 133 Units/L (29-103); Lipase 37 Units/L (11-82)
[2022-02-06] MEDS: Loratadine 10 MG TABLET PO SCH (08:38)
[2022-02-06] MEDS: Ascorbic Acid 500 MG TABLET PO SCH ×2 (08:38→16:39)
[2022-02-06] MEDS: Multivit/Ca/Min/Fe/FA 1 TAB TABLET PO SCH (08:41)
[2022-02-06] MEDS: Ondansetron 4 MG/2 ML VIAL IVP PRN ×2 (10:23→19:17)
[2022-02-06] MEDS: Aspirin Enteric Coated 81 MG Tablet PO SCH (10:26)
[2022-02-06] MEDS: Furosemide 20 MG TABLET PO SCH (11:11)
[2022-02-06] MEDS ORDERED: *HR* Labetalol 20 MG/4 ML SYRINGE IVP ONE (13:04)
[2022-02-06] MEDS: amLODIPine 5 MG TABLET PO SCH (13:13)
[2022-02-06] MEDS: *HR* Promethazine 25 MG/ML VIAL IM PRN (13:33)
[2022-02-06] MEDS ORDERED: Perflutren Lipid Microsphere 1.3 ML in 0.9 % Sodium Chloride 8.7 ML IVP PRN (14:14)
[2022-02-06] MEDS ORDERED: *HR* Labetalol 20 MG/4 ML SYRINGE IVP STA (14:24)
[2022-02-06] MEDS: tiZANidine 4 MG TABLET PO PRN (14:29)
[2022-02-06] MEDS ORDERED: *HR* Promethazine 25 MG/ML VIAL IM PRN (15:31)
[2022-02-06] MEDS: carvediloL 25 MG TABLET PO SCH (16:39)
[2022-02-06] MEDS ORDERED: 0.9 % Sodium Chloride 500 ML IVC ONE (20:49)
[2022-02-06 21:14] LABS: Sodium, Urine 45.4 mEq/L
[2022-02-07] MEDS: *HR* HYDROmorphone (PF) 1 MG/ML SYRINGE IVP PRN (01:13)
[2022-02-07] MEDS: CeFAZolin 2 GM/120 ML BAG IVPB SCH ×2 (01:24→08:10)
[2022-02-07] MEDS: Acetaminophen IV 1,000 MG/100 ML BAG IVPB SCH ×3 (01:25→08:10)
[2022-02-07] MEDS: tiZANidine 4 MG TABLET PO PRN ×2 (01:32→14:10)
[2022-02-07] MEDS: *HR* OxyCODONE Immed Rel 5 MG TABLET PO PRN ×4 (01:32→10:52)
[2022-02-07] MEDS: Ringers Solution, Lactated 1,000 ML IVC SCH (05:14)
[2022-02-07] MEDS: *HR* Labetalol 20 MG/4 ML SYRINGE IVP PRN ×2 (05:15→14:01)
[2022-02-07 05:23] LABS: Basophils % 0.1 %; Eosinophils % 0.1 %; Hematocrit 38.2 % (35.3-44.9); Immature Granulocytes % 0.5 % (0-4); Lymphocytes # 2.8 K/mcL (0.6-4.6); Mean Corpuscular HGB Conc 31.7 g/dL (31.6-35.5); Mean Corpuscular Hemoglobin 30.2 pg (28.0-33.3); Mean Corpuscular Volume 95.3 fL (83.0-100.0); Mean Platelet Volume 9.1 fL (9.4-12.4); Monocytes % 7.2 %; Neutrophils # 9.5 K/mcL (1.6-8.9); Platelet Count 361 K/mcL (140-400); Red Blood Count 4.01 M/mcL (3.82-4.97); Red Cell Distribution Width 16.2 % (11.5-14.5); Segmented Neutrophils % 71.1 %; White Blood Count 13.3 K/mcL (4.3-11.1)
[2022-02-07 05:38] LABS: Alanine Aminotransferase 11 Units/L (7-52); Albumin/Globulin Ratio 1.3 (1.1-2.2); Alkaline Phosphatase 108 Units/L (34-104); Aspartate Amino Transferase 27 Units/L (13-39); BUN/Creatinine Ratio 22 (6-26); Bilirubin,Total 0.7 mg/dL (0.3-1.0); Blood Urea Nitrogen 22 mg/dL (6-20); Carbon Dioxide 24 mEq/L (23-29); Chloride 103 mEq/L (98-107); Globulin 3.1 g/dL (2.4-3.5); Glucose 99 mg/dL (70-105); Osmolality,Calculated 289 (280-300); Potassium 3.6 mEq/L (3.5-5.1); Sodium 138 mEq/L (136-145); Total Protein 7.1 g/dL (6.4-8.9); eGFR For African Americans > 60 (> 60); eGFR For Non-African Americans 56 (> 60)
[2022-02-07 05:41] LABS: Hemoglobin 12.1 g/dL (11.5-15.4)
[2022-02-07] MEDS: Multivit/Ca/Min/Fe/FA 1 TAB TABLET PO SCH (08:02)
[2022-02-07] MEDS: Aspirin Enteric Coated 81 MG Tablet PO SCH (08:03)
[2022-02-07] MEDS: Ascorbic Acid 500 MG TABLET PO SCH (08:03)
[2022-02-07] MEDS: carvediloL 25 MG TABLET PO SCH (08:03)
[2022-02-07] MEDS: amLODIPine 5 MG TABLET PO SCH (08:04)
[2022-02-07] MEDS: Loratadine 10 MG TABLET PO SCH (08:04)
[2022-02-07] MEDS ORDERED: Cariprazine Hcl [Vraylar] 1.5 MG Capsule PO SCH (09:00)
[2022-02-07 13:53] VITALS: BP 167/96; PULSE 99; TEMP 99.2; O2SAT 97
[2022-02-07] MEDS ORDERED: *HR* Enoxaparin 40 MG/0.4 ML SYRINGE SQ SCH (18:15)
[2022-02-08] MEDS ORDERED: *HR* Enoxaparin 40 MG/0.4 ML SYRINGE SQ SCH (18:00)
== END 2022-02-07 18:00 | disposition home or self-care (01) ==
LOC: SDCAOSI 09:49 → 4WAOSI 09:49 → 2NENU 02-06 08:14 → 4WAOSI 02-07 13:01
PROVIDERS: ADMIT Orthopaedic Surgery; ATTEND Orthopaedic Surgery

== ENCOUNTER 2022-06-30 15:14 | Inpatient (IN) ==
[2022-06-30] MEDS ORDERED: Iopamidol - 370 500 ML MLS IVP ONE (16:27)
[2022-06-30] MEDS ORDERED: Cefepime HCl 2,000 MG in 0.9 % Sodium Chloride 10 ML IVP ONE (17:00)
[2022-06-30 17:03] LABS: Basophils # 0.1 K/mcL (0.0-0.2); Basophils % 0.4 %; Eosinophils % 0.2 %; Hematocrit 45.2 % (35.3-44.9); Hemoglobin 15.3 g/dL (11.5-15.4); Immature Granulocytes % 0.6 % (0-4); Lymphocytes # 1.7 K/mcL (0.6-4.6); Lymphocytes % 13.2 %; Mean Corpuscular HGB Conc 33.8 g/dL (31.6-35.5); Mean Corpuscular Hemoglobin 31.3 pg (28.0-33.3); Mean Corpuscular Volume 92.4 fL (83.0-100.0); Mean Platelet Volume 9.5 fL (9.4-12.4); Monocytes # 0.9 K/mcL (0.0-1.3); Monocytes % 7.1 %; Platelet Count 347 K/mcL (140-400); Red Blood Count 4.89 M/mcL (3.82-4.97); Red Cell Distribution Width 14.4 % (11.5-14.5); Segmented Neutrophils % 78.5 %
[2022-06-30 17:04] LABS: Neutrophils # 10.4 K/mcL (1.6-8.9); White Blood Count 13.2 K/mcL (4.3-11.1)
[2022-06-30 17:09] LABS: INR 1.3; Prothrombin Time 14.6 Seconds (9.4-12.1)
[2022-06-30 17:11] LABS: Bilirubin,Urine Negative (Negative); Blood,Urine Negative (Negative); Calcium Oxalate Crystals,Urine Present per hpf; Clarity,Urine Ex.Turbid (Clear); Color,Urine Orange (Yellow); Glucose,Urine (UA) 50 mg/dL (Normal); Hyaline Casts,Urine Many per lpf (None Seen); Ketones,Urine Trace mg/dL (Negative); Leukocyte Esterase,Urine Small (Negative); Mucus,Urine Few per lpf (None-Few); Nitrite,Urine Negative (Negative); PH,Urine 6.5 pH Units (5.0-8.0); Protein,Urine 100 mg/dL (Neg-Trace); Specific Gravity,Urine 1.029 (1.010-1.025); Squamous Epithelial Cell,Urine Moderate per hpf (None-Few); Urobilinogen,Urine Normal (Normal); WBC,Urine 15-30 per hpf (0-3)
[2022-06-30 17:12] LABS: Activated Partial Thrombo Time 31.6 Seconds (26.0-36.0)
[2022-06-30 17:20] LABS: Albumin 4.1 g/dL (3.5-5.7); Albumin/Globulin Ratio 1.1 (1.1-2.2); Bilirubin,Total 1.4 mg/dL (0.3-1.0); Calcium 9.4 mg/dL (8.6-10.3); Globulin 3.9 g/dL (2.4-3.5); Potassium 3.5 mEq/L (3.5-5.1); Troponin I 0.03 ng/mL (< 0.04)
[2022-06-30] MEDS ORDERED: Melatonin 3 MG TABLET PO PRN (17:45)
[2022-06-30] MEDS ORDERED: Mag Hydrox/Al Hydrox/Simeth 30 ML UDC PO PRN (17:45)
[2022-06-30] MEDS ORDERED: Naloxone 0.4 MG/ML INJ IVP PRN (17:45)
[2022-06-30] MEDS ORDERED: Acetaminophen 325 MG TABLET PO PRN (17:45)
[2022-06-30] MEDS ORDERED: MOM Conc 10 ML UD.LIQ PO PRN (17:45)
[2022-06-30] MEDS ORDERED: Ondansetron 4 MG/2 ML VIAL IVP PRN (17:45)
[2022-07-01] MEDS: Cefepime HCl 2,000 MG in 0.9 % Sodium Chloride 10 ML IVP SCH ×3 (00:51→21:28)
[2022-07-01 05:50] LABS: Hematocrit 41.4 % (35.3-44.9); Hemoglobin 14.3 g/dL (11.5-15.4); Mean Corpuscular HGB Conc 34.5 g/dL (31.6-35.5); Mean Corpuscular Hemoglobin 31.4 pg (28.0-33.3); Mean Corpuscular Volume 90.8 fL (83.0-100.0); Mean Platelet Volume 9.7 fL (9.4-12.4); Platelet Count 379 K/mcL (140-400); Red Blood Count 4.56 M/mcL (3.82-4.97); Red Cell Distribution Width 14.2 % (11.5-14.5); White Blood Count 12.5 K/mcL (4.3-11.1)
[2022-07-01 06:07] LABS: Calcium 8.9 mg/dL (8.6-10.3); Magnesium 1.6 mg/dL (1.6-2.6); Potassium 3.1 mEq/L (3.5-5.1)
[2022-07-01] MEDS ORDERED: Iopamidol - 370 500 ML MLS IVP ONE (07:46)
[2022-07-01] MEDS ORDERED: carvediloL 25 MG TABLET PO SCH ×2 (08:00→17:00)
[2022-07-01] MEDS ORDERED: Lidocaine -MPF 2% 2 ML VIAL ONE (08:40)
[2022-07-01] MEDS ORDERED: *HR* Succinylcholine 200 MG/10 ML VIAL IVP ONE (08:41)
[2022-07-01] MEDS ORDERED: *HR* FentaNYL (PF) 100 MCG/2 ML VIAL ONE (08:46)
[2022-07-01] MEDS ORDERED: *HR* Midazolam HCl 2 MG/2 ML VIAL ONE (08:46)
[2022-07-01] MEDS ORDERED: amLODIPine 5 MG TABLET PO SCH (09:00)
[2022-07-01] MEDS ORDERED: Ondansetron 4 MG/2 ML VIAL IVP PRN (09:28)
[2022-07-01] MEDS ORDERED: Nitroglycerin 0.4 MG TAB.SUBL SL PRN ×2 (09:28→19:28)
[2022-07-01] MEDS ORDERED: Naloxone 0.4 MG/ML INJ IVP PRN ×2 (09:28→13:08)
[2022-07-01] MEDS ORDERED: Albuterol 2.5 MG/3 ML NEBULIZER IH PRN (09:28)
[2022-07-01] MEDS ORDERED: *HR* FentaNYL (PF) 100 MCG/2 ML VIAL IVP PRN (09:28)
[2022-07-01] MEDS ORDERED: 0.9 % Sodium Chloride 1,000 ML IVC ONE (11:35)
[2022-07-01] MEDS ORDERED: Melatonin 3 MG TABLET PO PRN (13:08)
[2022-07-01] MEDS ORDERED: Mag Hydrox/Al Hydrox/Simeth 30 ML UDC PO PRN (13:08)
[2022-07-01] MEDS ORDERED: MOM Conc 10 ML UD.LIQ PO PRN (13:08)
[2022-07-01] MEDS ORDERED: Magnesium Oxide 400 MG TABLET PO ONE (14:00)
[2022-07-01] MEDS: carvediloL 6.25 MG TABLET PO SCH (15:48)
[2022-07-01] MEDS: Acetaminophen 325 MG TABLET PO PRN (15:52)
[2022-07-01] MEDS: levoFLOXacin 750 MG/150 ML 750 MG/150 ML BAG IVPB SCH (16:57)
[2022-07-01] MEDS ORDERED: Fluticasone Propionate Nasal 50 MCG/SPRAY BOTTLE NS PRN (19:28)
[2022-07-01] MEDS ORDERED: Cefepime HCl 2,000 MG in 0.9 % Sodium Chloride 10 ML IVP SCH (21:00)
[2022-07-01] MEDS: Ondansetron 4 MG/2 ML VIAL IVP PRN (21:30)
[2022-07-02] MEDS ORDERED: *HR* Enoxaparin 40 MG/0.4 ML SYRINGE SQ SCH ×2 (06:00)
[2022-07-02 06:31] LABS: Hemoglobin 13.1 g/dL (11.5-15.4); Mean Corpuscular HGB Conc 33.6 g/dL (31.6-35.5); Mean Corpuscular Volume 92.4 fL (83.0-100.0); Mean Platelet Volume 9.6 fL (9.4-12.4); Platelet Count 374 K/mcL (140-400); Red Blood Count 4.22 M/mcL (3.82-4.97); Red Cell Distribution Width 14.6 % (11.5-14.5); White Blood Count 11.4 K/mcL (4.3-11.1)
[2022-07-02 06:50] LABS: Calcium 8.9 mg/dL (8.6-10.3); Magnesium 1.8 mg/dL (1.6-2.6); Potassium 3.8 mEq/L (3.5-5.1)
[2022-07-02] MEDS: amLODIPine 5 MG TABLET PO SCH (07:34)
[2022-07-02] MEDS: NIACIN 250 MG PO SCH (07:34)
[2022-07-02] MEDS: Multivit/Ca/Min/Fe/FA 1 TAB TABLET PO SCH (07:42)
[2022-07-02] MEDS: Furosemide 20 MG TABLET PO SCH (07:42)
[2022-07-02] MEDS: Folic Acid 1 MG TABLET PO SCH (07:42)
[2022-07-02] MEDS: levoFLOXacin 750 MG/150 ML 750 MG/150 ML BAG IVPB SCH (07:42)
[2022-07-02] MEDS: carvediloL 6.25 MG TABLET PO SCH (07:42)
[2022-07-02] MEDS: Cholecalciferol (D-3) 1,000 UNIT (25MCG) TABLET PO SCH (07:42)
[2022-07-02] MEDS: Loratadine 10 MG TABLET PO SCH (07:42)
[2022-07-02] MEDS: Cefepime HCl 2,000 MG in 0.9 % Sodium Chloride 10 ML IVP SCH (07:43)
[2022-07-02] MEDS: Acetaminophen 325 MG TABLET PO PRN ×2 (07:48→21:36)
[2022-07-02] MEDS ORDERED: Magnesium Oxide 400 MG TABLET PO ONE (09:10)
[2022-07-02] MEDS: tiZANidine 4 MG TABLET PO PRN ×2 (10:05→18:54)
[2022-07-02] MEDS: Metoprolol XL (24 HR) Succ 25 MG TAB.ER.24H PO SCH ×2 (10:07→15:35)
[2022-07-02] MEDS ORDERED: *HR* Heparin 5,000 UNIT/ML VIAL IVP PRN ×2 (13:57)
[2022-07-02] MEDS ORDERED: *HR* Heparin 5,000 UNIT/ML VIAL IVP ONE (13:57)
[2022-07-02 16:22] LABS: Hematocrit 42.3 % (35.3-44.9); Hemoglobin 14.5 g/dL (11.5-15.4); Mean Corpuscular HGB Conc 34.3 g/dL (31.6-35.5); Mean Corpuscular Hemoglobin 31.7 pg (28.0-33.3); Mean Corpuscular Volume 92.4 fL (83.0-100.0); Mean Platelet Volume 9.5 fL (9.4-12.4); Platelet Count 430 K/mcL (140-400); Red Blood Count 4.58 M/mcL (3.82-4.97); Red Cell Distribution Width 14.6 % (11.5-14.5); White Blood Count 12.5 K/mcL (4.3-11.1)
[2022-07-02 16:41] LABS: Heparin anti-factor XA UFH 0.06 IU/mL (0.30-0.70)
[2022-07-02 16:42] LABS: INR 1.3
[2022-07-02] MEDS: Ondansetron 4 MG/2 ML VIAL IVP PRN (17:56)
[2022-07-02] MEDS: Heparin 25,000UNIT/250ML 1/2NS 25,000 UNIT/250 ML IV.SOLN IVC SCH (17:57)
[2022-07-03] MEDS: tiZANidine 4 MG TABLET PO PRN ×2 (00:01→08:25)
[2022-07-03] MEDS: Cefepime HCl 2,000 MG in 0.9 % Sodium Chloride Mini Bag 100 ML IVPB SCH ×2 (00:02→11:09)
[2022-07-03] MEDS: Ondansetron 4 MG/2 ML VIAL IVP PRN (01:48)
[2022-07-03 06:06] LABS: Hematocrit 38.4 % (35.3-44.9); Mean Corpuscular HGB Conc 33.9 g/dL (31.6-35.5); Mean Corpuscular Hemoglobin 31.3 pg (28.0-33.3); Mean Corpuscular Volume 92.3 fL (83.0-100.0); Mean Platelet Volume 9.3 fL (9.4-12.4); Platelet Count 430 K/mcL (140-400); Red Blood Count 4.16 M/mcL (3.82-4.97); Red Cell Distribution Width 14.6 % (11.5-14.5); White Blood Count 13.4 K/mcL (4.3-11.1)
[2022-07-03 06:22] LABS: Calcium 9.2 mg/dL (8.6-10.3); Potassium 3.4 mEq/L (3.5-5.1)
[2022-07-03] MEDS ORDERED: Ondansetron 4 MG/2 ML VIAL IVP PRN (07:28)
[2022-07-03] MEDS: Metoprolol XL (24 HR) Succ 25 MG TAB.ER.24H PO SCH (08:22)
[2022-07-03] MEDS: Multivit/Ca/Min/Fe/FA 1 TAB TABLET PO SCH (08:23)
[2022-07-03] MEDS: Loratadine 10 MG TABLET PO SCH (08:24)
[2022-07-03] MEDS: Furosemide 20 MG TABLET PO SCH (08:25)
[2022-07-03] MEDS: Cholecalciferol (D-3) 1,000 UNIT (25MCG) TABLET PO SCH (08:25)
[2022-07-03] MEDS: Folic Acid 1 MG TABLET PO SCH (08:25)
[2022-07-03] MEDS: amLODIPine 5 MG TABLET PO SCH (08:25)
[2022-07-03] MEDS: Acetaminophen 325 MG TABLET PO PRN (08:56)
[2022-07-03] MEDS: Cefepime HCl 2,000 MG in 0.9 % Sodium Chloride 10 ML IVP SCH ×2 (10:11→16:42)
[2022-07-03] MEDS: NIACIN 250 MG PO SCH (11:09)
[2022-07-03] MEDS: Heparin 25,000UNIT/250ML 1/2NS 25,000 UNIT/250 ML IV.SOLN IVC SCH (12:44)
[2022-07-04] MEDS: Cefepime HCl 2,000 MG in 0.9 % Sodium Chloride 10 ML IVP SCH ×2 (00:27→09:20)
[2022-07-04 03:18] VITALS: TEMP 97.8; O2SAT 96
[2022-07-04 08:01] VITALS: BP 135/86; PULSE 65
[2022-07-04] MEDS: Loratadine 10 MG TABLET PO SCH (09:18)
[2022-07-04] MEDS: amLODIPine 5 MG TABLET PO SCH (09:18)
[2022-07-04] MEDS: Multivit/Ca/Min/Fe/FA 1 TAB TABLET PO SCH (09:18)
[2022-07-04] MEDS: Furosemide 20 MG TABLET PO SCH (09:18)
[2022-07-04] MEDS: Folic Acid 1 MG TABLET PO SCH (09:18)
[2022-07-04] MEDS: Cholecalciferol (D-3) 1,000 UNIT (25MCG) TABLET PO SCH (09:18)
[2022-07-04] MEDS: Metoprolol XL (24 HR) Succ 25 MG TAB.ER.24H PO SCH (09:22)
[2022-07-04] MEDS: Heparin 25,000UNIT/250ML 1/2NS 25,000 UNIT/250 ML IV.SOLN IVC SCH (09:44)
== END 2022-07-04 12:03 | disposition home health service (06) | DRG 711 ==
LOC: EMEROOARM 15:14 → 3BNU 15:14 → SUATTDRO 17:46 → 3BNU 18:33
PROVIDERS: ADMIT Internal Medicine; ATTEND Student in an Organized Health Care Education/Training Program